=== PATIENT | male | born 1965 | race Caucasian/White ===

== ENCOUNTER 2023-05-06 07:42 | Outpatient (OUT) | payer OTHER, SELFPAY ==
[2023-05-06 09:09] LABS: Estimated Average Glucose 134 mg/dL; Glycohemoglobin A1C 6.3 % (4.5-6.2)
[2023-05-06 09:41] LABS: Chol HDL Ratio 4.1; Cholesterol 162 mg/dL (<=200); HDL Cholesterol 40 mg/dL (40-60); Triglycerides 172 mg/dL (<=150); VLDL CHOLESTEROL 34.4 mg/dL
[2023-05-06 10:04] LABS: Prostate Specific Antigen Scrn 1.66 ng/mL (<=4.00)
[2023-05-07 08:10] LABS: HCV Ab Non Reactive (Non Reactive); HIV Ab/p24 Ag Screen Non Reactive (Non Reactive)
== END 2023-05-06 07:43 | disposition home or self-care (01) ==
LOC: LAB 07:44
PROVIDERS: PCP Nurse Practitioner Primary Care; Visit Provider Nurse Practitioner Primary Care
DX: Z11.59 Encounter for screening for other viral diseases (principal); Z13.6 Encounter for screening for cardiovascular disorders; Z11.4 Encounter for screening for human immunodeficiency virus [HIV]; Z12.5 Encounter for screening for malignant neoplasm of prostate
CPT/HCPCS: 36415; 80061; 83036; 86803; 87389; G0103

== ENCOUNTER 2023-06-22 09:23 | Emergency (ER) | payer OTHER, SELFPAY ==
[2023-06-22 09:29] VITALS: BP 163/107; PULSE 76; RESP 18; TEMP 36.6; O2SAT 98
--- NOTE | 2023-06-22 10:01 | US_ITS ---
[facility] [id number] Patient Name: JUAN FRANCISCO CARMEN MRN: [id number] date: 1965 Sex: M Assigned Patient Location: ED.MAIN Current Patient Location: Accession/Order Number: [id number] Exam Date: 06/22/2023 10:28 Report Date: 06/22/2023 11:51 At the request of: DANIEL REZA Procedure: US venous doppler LE LT LEFT LOWER EXTREMITY VENOUS ULTRASOUND: 06/22/2023 10:28 AM EST Clinical Data: left calf pain, post TKR Comparison: No previous Grayscale and Doppler evaluation. No evidence of DVT US/US venous doppler LE LT IMPRESSION: 1. No evidence of DVT but follow-up studies if indicated. Electronically authenticated by: KATYA GLEASON Date: 06/22/2023 11:51
--- NOTE | 2023-06-22 10:02 | ED.GENADUL1 ---
HPI - General Adult General Chief complaint: Extremity Injury, Lower Stated complaint: BLOOD CLOT L LEG Time Seen by Provider: 06/22/23 09:33 Source: patient Mode of arrival: walk-in Limitations: no limitations History of Present Illness HPI narrative: Patient who underwent left knee surgery on late April now presents with pain and swelling to the left calf that began yesterday. Pain radiates into the left thigh and left hip but he has no pain with palpation or movement of those areas. No prior history of DVT and he does not take testosterone. No recent injury to the left LE. No chest pain or shortness of breath. He took baby aspirin this morning - nothing else for pain. Related Data Home Medications Medication Instructions Recorded Confirmed allopurinol 100 mg tablet 150 mg PO DAILY 06/22/23 06/22/23 amlodipine 5 mg tablet 5 mg PO DAILY 06/22/23 06/22/23 celecoxib 200 mg capsule 200 mg PO DAILY 06/22/23 06/22/23 lisinopril 20 mg tablet 20 mg PO DAILY 06/22/23 06/22/23 omega 2-djh-rlv-fish oil 300 1 cap PO DAILY 06/22/23 06/22/23 mg-1,000 mg capsule (Fish Oil) pravastatin 40 mg tablet 40 mg PO DAILY 06/22/23 06/22/23 sildenafil 25 mg tablet 25 mg PO PRN PRN sexual activity 06/22/23 06/22/23 tamsulosin 0.4 mg capsule 0.4 mg PO DAILY 06/22/23 06/22/23 Allergies Allergy/AdvReac Type Severity Reaction Status Date / Time No Known Drug Allergies Allergy Verified 06/22/23 09:32 [facility] Social History Smoking status: Never smoker Exam Narrative Exam Narrative: Nurses notes and vital signs reviewed and patient is not hypoxic. afebrile General: Well-appearing and in no apparent distress. Skin: Warm, dry, no pallor noted. Eye: Pupils are equal, round and EOMI. No scleral icterus. Cardiovascular: Normal peripheral perfusion. Respiratory: No accessory muscle use or respiratory distress. Musculoskeletal: Left LE with normal ROM. No left hip or thigh tenderness to palpation or pain with ROM. Left knee incision without dehiscence, erythema, warmth or sign of infection. No left popliteal tenderness. Left calf tenderness on palpation. No left lower extremity edema/swelling. Howard's negative. Neurological: A&O x4. No cranial nerve dysfunction observed. No truncal ataxia. Moves all extremities. Sensation intact. Psychiatric: Cooperative and interactive. Normal mood and affect. Constitutional Vital Signs, click to edit/add: Last Vital Signs Temp 97.9 F 06/22/23 09:29 Pulse 72 06/22/23 11:09 Resp 16 06/22/23 11:09 BP 137/76 06/22/23 11:09 Pulse Ox 98 06/22/23 11:09 O2 Del Method Room Air 06/22/23 09:29 Course Vital Signs Vital signs: Vital Signs Temperature 97.9 F 06/22/23 09:29 Pulse Rate 76 06/22/23 09:29 Respiratory Rate 18 06/22/23 09:29 Blood Pressure 163/107 H 06/22/23 09:29 Pulse Oximetry 98 06/22/23 09:29 Oxygen Delivery Method Room Air 06/22/23 09:29 Temperature 97.9 F 06/22/23 09:29 Pulse Rate 72 06/22/23 11:09 Respiratory Rate 16 06/22/23 11:09 Blood Pressure 137/76 06/22/23 11:09 Pulse Oximetry 98 06/22/23 11:09 Oxygen Delivery Method Room Air 06/22/23 09:29 Medical Decision Making MDM Narrative Medical decision making narrative: CBC and BMP testing obtained. Ultrasound left lower extremity to rule out deep vein thrombosis was also obtained. US left LE was negative for DVT. Blood testing essentially unremarkable - no electrolyte abnormality or elevated WBC Patient informed of negative results and given reassurance. He was discharged home with recommendations to take meds as prescribed and OTC med for pain. Lab Data Lab results reviewed: Yes I reviewed the patient's lab results Labs: Lab Results 06/22/23 Range/Units 10:10 WBC 6.1 (4.0-11.0) 10^3/uL RBC 4.83 (4.70-6.10) 10^6/uL Hgb 13.9 L (14.0-18.0) g/dL Hct 42.2 (42.0-54.0) % MCV 87.4 (80.0-94.0) fL MCH 28.8 (25.9-34.0) pg MCHC 32.9 (29.9-35.2) g/dL RDW 12.9 (11.0-15.0) % Plt Count 244 (150-450) 10^3/uL MPV 9.4 L (9.5-13.5) fL Neut % (Auto) 63.5 (43.0-75.0) % Lymph % (Auto) 23.1 (20.5-60.0) % [place] % (Auto) 8.5 (1.7-12.0) % Eos % (Auto) 4.2 (0.9-7.0) % Baso % (Auto) 0.5 (0.2-2.0) % Neut # (Auto) 3.9 (1.4-6.5) 10^3/uL Lymph # (Auto) 1.4 (1.2-3.8) 10^3/uL [place] # (Auto) 0.5 (0.3-0.8) 10^3/uL Eos # (Auto) 0.3 (0.0-0.7) 10^3/uL Baso # (Auto) 0.0 (0.0-0.1) 10^3/uL Abs Immat Gran (auto) 0.01 (0.00-0.03) 10^3/uL Imm/Tot Granulo (auto) 0.2 (0.0-0.5) % Sodium 137 (136-145) mmol/L Potassium 4.1 (3.5-5.1) mmol/L Chloride 102 (98-107) mmol/L Carbon Dioxide 26.0 (21.0-32.0) mmol/L Anion Gap 13.1 BUN 23.0 H (7.0-18.0) mg/dL Creatinine 0.92 (0.70-1.30) mg/dL Est GFR ( Amer) >60 (>=60) Est GFR (Non-Af Amer) >60 (>=60) BUN/Creatinine Ratio 25.0 Glucose 127 H (74-106) mg/dL Calcium 9.3 (8.5-10.1) mg/dL Discharge Plan Discharge Chief Complaint: Extremity Injury, Lower Clinical Impression: Acute pain of left lower extremity Patient Disposition: Home, Self-Care Time of Disposition Decision: 11:17 Prescriptions / Home Meds: No Action allopurinol 100 mg tablet 150 mg PO DAILY amlodipine 5 mg tablet 5 mg PO DAILY celecoxib 200 mg capsule 200 mg PO DAILY lisinopril 20 mg tablet 20 mg PO DAILY omega 0-mhm-xhc-fish oil [Fish Oil] 300-1,000 mg capsule 1 cap PO DAILY pravastatin 40 mg tablet 40 mg PO DAILY sildenafil 25 mg tablet 25 mg PO PRN PRN (Reason: sexual activity) tamsulosin 0.4 mg capsule 0.4 mg PO DAILY Instructions: Leg Pain (ED) Stand Alone Forms: Portal Instructions Referrals: ARNULFO DIAZ APRN [Primary Care Provider] - 1 week
[2023-06-22 10:17] LABS: Basophils Percent Auto 0.5 % (0.2-2.0); Eosinophils Absolute Auto 0.3 10^3/uL (0.0-0.7); Eosinophils Percent Auto 4.2 % (0.9-7.0); Hematocrit 42.2 % (42.0-54.0); Hemoglobin 13.9 g/dL (14.0-18.0); Immature Granulocytes Abs Auto 0.01 10^3/uL (0.00-0.03); Immature Granulocytes Pct Auto 0.2 % (0.0-0.5); Lymphocytes Absolute Auto 1.4 10^3/uL (1.2-3.8); Lymphocytes Percent Auto 23.1 % (20.5-60.0); Mean Corpuscular HGB Conc 32.9 g/dL (29.9-35.2); Mean Corpuscular Hemoglobin 28.8 pg (25.9-34.0); Mean Corpuscular Volume 87.4 fL (80.0-94.0); Mean Platelet Volume 9.4 fL (9.5-13.5); Monocytes Absolute Auto 0.5 10^3/uL (0.3-0.8); Monocytes Percent Auto 8.5 % (1.7-12.0); Neutrophils Absolute Auto 3.9 10^3/uL (1.4-6.5); Neutrophils Percent Auto 63.5 % (43.0-75.0); Platelet Count 244 10^3/uL (150-450); Red Blood Count 4.83 10^6/uL (4.70-6.10); Red Cell Distribution Width 12.9 % (11.0-15.0); White Blood Count 6.1 10^3/uL (4.0-11.0)
[2023-06-22 10:33] LABS: Anion Gap 13.1; Calcium 9.3 mg/dL (8.5-10.1); Chloride 102 mmol/L (98-107); Estimated GFR (African America >60 (>=60); Estimated GFR (Non-African Ame >60 (>=60); Glucose 127 mg/dL (74-106); Potassium 4.1 mmol/L (3.5-5.1); Sodium 137 mmol/L (136-145)
[2023-06-22 11:09] VITALS: BP 137/76; PULSE 72; RESP 16; O2SAT 98
== END 2023-06-22 11:38 | disposition home or self-care (01) ==
PROVIDERS: Emergency Provider Emergency Medicine; PCP Nurse Practitioner Primary Care
DX: M79.605 Pain in left leg (principal); Z79.899 Other long term (current) drug therapy
CPT/HCPCS: 36415; 80048; 85025; 93971; 99285

== ENCOUNTER 2023-11-22 07:37 | Outpatient (OUT) | payer OTHER, SELFPAY ==
--- OUTSIDE RECORDS SUMMARY | 2023-11-22 07:42 | XMS_ITS | CCD ---
Author Organization [facility] Care Team Providers Care [employer] Designer Name Role Phone DO Elmo Vela Attending Provider HOUSE, DR SYED Admitting Unavailable HOUSE, DR SYED Attending Unavailable HOUSE, DR SYED Consulting Unavailable HOUSE, DR SYED Primary Care Unavailable WIECEAllyson, DR KIARA Block Admitting Unavailable WIECEK, DR KIARA Block Attending Unavailable WIECEK, DR KIARA Block Admitting Unavailable WIECEK, DR KIARA Block Attending Unavailable OBED, DR ELMO Fisher Admitting Unavailable LAFFAPooja, DR ELMO Fisher Attending Unavailable OBED, DR ELMO Fisher Consulting Unavailable LAFFAPooja, DR ELMO Fisher Admitting Unavailable LAFFAY, DR ELMO Fisher Attending Unavailable LAFFAY, DR ELMO Fisher Consulting Unavailable Laffay, Elmo Attending Unavailable Lafrodney, Elmo Admitting Unavailable NO FAMILY, PHYSICIAN Primary Care Unavailable MARCI CURTIS Attending Unavailable MARCI CURTIS Referring Unavailable MARCI CURTIS Attending Unavailable Problems Problem Classification Problem Date Documented Da te Episodic/Chronic Abdominal hernia (1 source) Umbilical hernia without obstruction or gangrene; Translations: [Umbilical hernia without obstruction or gangrene] Onset: 03-30-2022 Episodic Genitourinary symptoms and ill-defined conditions (5 sources) Nocturia; Translations: [Dysuria] Onset: 01-17-2022 Episodic Unclassified (1 source) CONTACT W/AND (SUSP) EXPOS COVID-19; Translations: [CONTACT W/AND (SUSP) EXPOS COVID-19] Onset: 04-01-2022 Results Test Name Value Interpretation Reference Range Facil ity Neal 03-30-2022 L Specimen: [id number] Received: 03/30/22 Status: TISHA Kimble Num: [id number] Spec Type: Surgical Subm Dr: Elmo Vela DO Tissues: A Hernia Sac (HERNIA SAC) Procedures: HE Stain, Gross/Micro L2 Age/ Patient Sex Location Account Attending Physician Juan Francisco Phillips/Umair NM [id number] Elmo Vela DO SPEC NUM: [id number] RECD: 03/30/22 STATUS: TISHA KENDAL NUM: [id number] CINDY: 03/30/22- SUBM DR: Elmo Vela DO ENTERED: 03/30/[address]: Marquis Villalobos [facility] SPEC TYPE: Surgical DEPT: S ORDERED: HE Stain, Gross/Micro L2 ORDERED: HE Stain, Gross/Micro L2 Pathological Diagnosis Hernia sac, resection: Clinical Information Umbilical hernia Gross Description Received in formalin labeled with the patient's name, number and hernia sac is a 5.0 x 3.8 x 1.8 cm aggregate of yellow, lobular, focally hyperemic fat with a yellow, lobular cut surface.. Animal Physiologist sections are submitted in one cassette labeled A1. Microscopic Description One glass slide with H E stained material has been examined. The microscopic findings support the above pathologic diagnosis. CPT Codes 86503 Specimen: [id number] Received: 03/30/22 Status: TISHA Kimble Num: [id number] Spec Type: Surgical Subm Dr: Elmo Vela DO Tissues: A Hernia Sac (HERNIA SAC) Procedures: HE Stain, Gross/Micro L2 Patient: Juan Francisco Phillips M [id number] (Continued) Signed (signature on file) Tamika Rodriguez MD 04/02/22 1054 Normal [facility] Covid-19 PCR (CVDTB)on SARS-CoV-2 (COVID-19) RNA GEORGIE+probe Ql (Unsp spec) Not detected Normal NOT DETECTED [facility] Comment on above: Result Comment: This test is not yet approved or cleared by the [place] FDA. When there are no FDA-approved or cleared tests available, and other criteria are met, FDA can make tests available under an emergency access mechanism called an Emergency Use Authorization (EUA). The EUA for this test is supported by the [place] [employer] of Health and Human Service's (HHS's) declaration that circumstances exist to justify the emergency use of in vitro diagnostics for the detection and/or diagnosis of the virus that causes COVID-19. This EUA will remain in effect (meaning this test can be used) for the duration of the COVID-19 declaration justifying emergency of IVDs, unless it is terminated or revoked by FDA (after which the test may no longer be used). When diagnostic testing is negative, the possibility of a false negative should be considered in the context of a patient's recent exposures and the presence of clinical signs and symptoms consistent with SARS-CoV-2. Performed By: #### C VDTB #### [facility] [address] [place] [address] Dr. Renny Patel CBC AUTO DIFFon 01-17-2022 BASO # 0.0 103/ul Normal 0.0-0.1 [facility] Comment on above: Performed By: #### C BC #### [facility] [address] [place] [address] Dr. Renny Patel Basophils/100 WBC (Bld) 0.2 % Normal 0.2-2.0 [facility] Comment on above: Performed By: #### C BC #### [facility] [address] [place] [address] Dr. Renny Patel EO # 0.0 103/ul Normal 0.0-0.7 [facility] Comment on above: Performed By: #### C BC #### [facility] [address] [place] [address] Dr. Renny Patel Eosinophils/100 WBC (Bld) 0.2 % Critically low 0.9-7.0 [facility] Comment on above: Performed By: #### C BC #### [facility] [address] [place] [address] Dr. Renny Patel Erythrocyte distribution width (RBC) [Ratio] 12.8 % Normal 11.0-15.0 [facility] Comment on above: Performed By: #### C BC #### [facility] [address] [place] [address] Dr. Renny Patel Hematocrit (Bld) [Volume fraction] 45.1 % Normal 42.0-54.0 [facility] Comment on above: Performed By: #### C BC #### [facility] [address] [place] [address] Dr. Renny Patel Hemoglobin (Bld) [Mass/Vol] 14.7 g/dL Normal 14.0-18.0 [facility] Comment on above: Performed By: #### C BC #### [facility] [address] [place] [address] Dr. Renny Patel IG # 0.03 10e3/ul Normal 0.00-0.03 [facility] Comment on above: Performed By: #### C BC #### [facility] [address] [place] [address] Dr. Renny Patel IG % 0.4 % Normal 0.0-0.5 [facility] Comment on above: Performed By: #### C BC #### [facility] [address] [place] [address] Dr. Renny Patel LYMPH # 1.9 103/ul Normal 1.2-3.8 [facility] Comment on above: Performed By: #### C BC #### [facility] [address] [place] [address] Dr. Renny Patel Lymphocytes/100 WBC (Bld) 22.8 % Normal 20.5-60.0 [facility] Comment on above: Performed By: #### C BC #### [facility] [address] [place] [address] Dr. Renny Patel MANUAL DIFF REQ NO Normal [facility] Comment on above: Performed By: #### C BC #### [facility] [address] [place] [address] Dr. Renny Patel MCH (RBC) [Entitic mass] 29.1 pg Normal 25.9-34.0 [facility] Comment on above: Performed By: #### C BC #### [facility] [address] [place] [address] Dr. Renny Patel MCHC (RBC) [Mass/Vol] 32.6 g/dL Normal 29.9-35.2 [facility] Comment on above: Performed By: #### C BC #### [facility] [address] [place] [address] Dr. Renny Patel MCV (RBC) [Entitic vol] 89.1 fL Normal 80.0-94.0 [facility] Comment on above: Performed By: #### C BC #### [facility] [address] [place] [address] Dr. Renny Patel MONO # 0.7 103/ul Normal 0.3-0.8 [facility] Comment on above: Performed By: #### C BC #### [facility] [address] [place] [address] Dr. Renny Patel Monocytes/100 WBC (Bld) 8.4 % Normal 1.7-12.0 [facility] Comment on above: Performed By: #### C BC #### [facility] [address] [place] [address] Dr. Renny Patel NEUT # 5.8 103/ul Normal 1.4-6.5 [facility] Comment on above: Performed By: #### C BC #### [facility] [address] [place] [address] Dr. Renny Patel Neutrophils/100 WBC (Bld) 68.0 % Normal 43.0-75.0 [facility] Comment on above: Performed By: #### C BC #### [facility] [address] [place] [address] Dr. Renny Patel Platelet mean volume (Bld) [Entitic vol] 9.4 fL Critically low 9.5-13.5 [facility] Comment on above: Performed By: #### C BC #### [facility] [address] [place] [address] Dr. Renny Patel PLT 247 103/ul Normal 150-450 [facility] Comment on above: Performed By: #### C BC #### [facility] [address] [place] [address] Dr. Renny Patel RBC 5.06 106/ul Normal 4.70-6.10 [facility] Comment on above: Performed By: #### C BC #### [facility] [address] [place] [address] Dr. Renny Patel WBC 8.5 103/ul Normal 4.0-11.0 [facility] Comment on above: Performed By: #### C BC #### [facility] [address] [place] [address] Dr. Renny Patel PROF 14(COMP METB)on 022 Albumin [Mass/Vol] 3.8 g/dL Normal 3.4-5.0 [facility] Comment on above: Performed By: #### U KEVIN, CMP #### [facility] [address] [place] [address] Dr. Renny Patel Albumin/Globulin [Mass ratio] 1.0 {ratio} Normal [facility] Comment on above: Performed By: #### U KEVIN, CMP #### [facility] [address] [place] [address] Dr. Renny Patel ALP [Catalytic activity/Vol] 54 U/L Normal 46-116 [facility] Comment on above: Performed By: #### U KEVIN, CMP #### [facility] [address] [place] [address] Dr. Renny Patel ALT [Catalytic activity/Vol] 60 U/L Normal 16-63 [facility] Comment on above: Performed By: #### U KEVIN, CMP #### [facility] [address] [place] [address] Dr. Renny Patel Anion gap [Moles/Vol] 8.7 mmol/L Normal [facility] Comment on above: Performed By: #### U KEVIN, CMP #### [facility] [address] [place] [address] Dr. Renny Patel AST [Catalytic activity/Vol] 22 U/L Normal 15-37 [facility] Comment on above: Performed By: #### U KEVIN, CMP #### [facility] [address] [place] [address] Dr. Renny Patel Bilirubin [Mass/Vol] 0.8 mg/dL Normal 0.2-1.0 [facility] Comment on above: Performed By: #### U KEVIN, CMP #### [facility] [address] [place] [address] Dr. Renny Patel Calcium [Mass/Vol] 9.4 mg/dL Normal 8.5-10.1 [facility] Comment on above: Performed By: #### U KEVIN, CMP #### [facility] [address] [place] [address] Dr. Renny Patel Chloride [Moles/Vol] 104 mmol/L Normal 98-107 [facility] Comment on above: Performed By: #### U KEVIN, CMP #### [facility] [address] [place] [address] Dr. Renny Patel CO2 [Moles/Vol] 27.6 mmol/L Normal 21.0-32.0 [facility] Comment on above: Performed By: #### U KEVIN, CMP #### [facility] [address] [place] [address] Dr. Renny Patel Creatinine [Mass/Vol] 0.99 mg/dL Normal 0.70-1.30 [facility] Comment on above: Performed By: #### U KEVIN, CMP #### [facility] [address] [place] [address] Dr. Renny Patel EGFR-AF NAMIBIAN >60 Normal >=60 [facility] Comment on above: Performed By: #### U KEVIN, CMP #### [facility] [address] [address] [address] Renny Patel EGFR-NON AF NAMIBIAN >60 Normal >=60 [facility] Comment on above: Performed By: #### U KEVIN, CMP #### [facility] [address] [address] [address] Renny Patel Globulin (S) [Mass/Vol] 3.9 g/dL Normal [facility] Comment on above: Performed By: #### U KEVIN, CMP #### [facility] [address] [address] [address] Renny Patel Glucose [Mass/Vol] 123 mg/dL Critically high 74-106 [facility] Comment on above: Performed By: #### U KEVIN, CMP #### [facility] [address] [address] [address] Renny Patel Potassium [Moles/Vol] 4.3 mmol/L Normal 3.5-5.1 [facility] Comment on above: Performed By: #### U KEVIN, CMP #### [facility] [address] [address] [address] Renny Patel Protein [Mass/Vol] 7.7 g/dL Normal 6.4-8.2 [facility] Comment on above: Performed By: #### U KEVIN, CMP #### [facility] [address] [address] [address] Renny Patel Sodium [Moles/Vol] 136 mmol/L Normal 136-145 [facility] Comment on above: Performed By: #### U KEVIN, CMP #### [facility] [address] [address] [address] Renny Patel Urea nitrogen [Mass/Vol] 15.0 mg/dL Normal 7.0-18.0 [facility] Comment on above: Performed By: #### U KEVIN, CMP #### [facility] [address] [address] [address] Renny Patel Urea nitrogen/Creatinine [Mass ratio] 15.2 mg/mg Normal [facility] Comment on above: Performed By: #### U KEVIN, CMP #### [facility] [address] [address] [address] Renny Patel URIC ACID SERUMon 01-17-2022 Urate [Mass/Vol] 4.9 mg/dL Normal 3.5-7.2 [facility] Comment on above: Performed By: #### U KEVIN, CMP #### [facility] [address] [address] [address] Renny Patel Encounters Encounter Date Encounter Type Care Provider Facility Start: 07-29-2023 End: 07-29-2023 ambulatory MARCI CURTIS Not Available Start: 07-01-2023 End: 07-02-2023 ambulatory MARCI CURTIS Not Available Start: 04-01-2022 Encounter for preprocedural laboratory examination DR ELMO VELA [facility] Start: 03-30-2022 End: 03-30-2022 ambulatory Elmo Vela Facility:[facility] Start: 03-30-2022 End: 03-30-2022 Departed Referred DO Elmo Vela Work Phone: [facility] Start: 03-28-2022 End: 03-29-[address] ELMO VELA Facility:[facility] Start: 03-28-2022 End: 03-29-2022 Encounter for preprocedural laboratory examination DR ELMO VELA Facility:[facility] Start: 03-02-[address] KIARA JARQUIN Fac ility:[facility] Start: 02-28-2022 Encounter for preprocedural cardiovascular examination DR ELMO VELA [facility] Start: 02-27-2022 End: 02-28-2022 Encounter for preprocedural cardiovascular examination DR ELMO VELA Facility:[facility] Start: 02-27-2022 End: 02-28-[address] ELMO VELA Facility:[facility] Start: 01-17-2022 End: 01-18-[address] KUNAL MICHELLE Facility:[facility] Procedures Date Procedure Procedure Detail Performing Clinician Start: 01-17-[address] SORAYA MICHELLE Comment on above: Performed By: #### P SAD #### [facility] [address] [address] [address] Renny Patel Payers Date Payer Category Payer Self-pay 1965 Unknown [id number] 2.16.84 [id number] 1965 Unknown [id number] 2.16.84 [id number] 1965 Unknown [id number] 2.16.84 [id number] 1965 Unknown [id number] 2.16.84 [id number] 1965 Unknown [id number] 2.16.84 [id number] 1965 Unknown [id number] [id number] .[id number] 1965 Unknown [id number] 2.16.840 .[id number] 1965 Unknown [id number] 2.16.840 .[id number] 1959 Unknown [id number] Unknown [id number] 2.16.8 [id number] Social History Date Type Detail Facility Tobacco smoking stat [facility] Unknown if ever smoked [facility] Work Phone: Start: 1965 Sex Assigned At Male [facility] Evaluation note Note Date & Type Note Facility Evaluation note No assessment information availa ble [facility] Work Phone: Summary Purpose Family History No Family History Records FoundNo Family History Records FoundNo Family History Records Found Advance Directives No Advanced Directives Records FoundNo Advanced Directives Records FoundNo Advanced Directives Records Found Additional Source Comments Care Teams (unrecognized sec tion and content) Team Status: Inactive Member Role Status Dates Elmo Vela DO Attending Provider Active Goals (unrecognized section and content) Goals may be documented in a n alternate section (unrecognized sect ion and content) No Status Records FoundNo Status Records FoundNo Status Records Found INFORMATION SOURCE (unrecogn ized section and content) DATE CREATED AUTHOR 04/01/2022 [facility] DATE CREATED AUTHOR AUTHOR'S ORGANIZ ATION 04/23/2022 [facility] DATE CREATED AUTHOR AUTHOR'S ORGANIZ ATION 07/29/2023 [facility] FOR RECORDS PERTAINING TO PATIENTS WHO ARE OR HAVE BEEN ENROLLED IN A CHEMICAL DEPENDENCY/SUBSTANCEABUSE PROGRAM, SOME INFORMATION MAY BE OMITTED. This clinical summary was aggregated from multiple sources. Caution should be exercised in using it in the provision of clinical care. This summary normalizes information from multiple sources, and as a consequence, information in this document may materially change the coding, format and clinical context of patient data. In addition, data may be omitted in some cases. CLINICAL DECISIONS SHOULD BE BASED ON THE PRIMARY CLINICAL RECORDS. [facility] [facility] provides no warranty or guarantee of the accuracy or completeness of information in this document.
[2023-11-22 08:13] LABS: Estimated Average Glucose 128 mg/dL; Glycohemoglobin A1C 6.1 % (4.5-6.2)
[2023-11-22 08:20] LABS: Chol HDL Ratio 3.5; Cholesterol 163 mg/dL (<=200); HDL Cholesterol 47 mg/dL (40-60); LDL Cholesterol Calculated 100.2 mg/dL; Triglycerides 79 mg/dL (<=150); VLDL CHOLESTEROL 15.8 mg/dL
[2023-11-22 09:25] LABS: Prostate Specific Antigen Scrn 2.22 ng/mL (<=4.00)
[2023-11-24 12:14] LABS: Insulin 26.3 uIU/mL (2.6-24.9)
== END 2023-11-22 07:38 | disposition home or self-care (01) ==
LOC: LAB 07:39
PROVIDERS: PCP Nurse Practitioner Family; Visit Provider Nurse Practitioner Family
DX: E78.5 Hyperlipidemia, unspecified (principal); R73.09 Other abnormal glucose; Z12.5 Encounter for screening for malignant neoplasm of prostate
CPT/HCPCS: 36415; 80061; 83036; 83525; G0103

== ENCOUNTER 2024-02-04 15:51 | Outpatient (OUT) | payer OTHER, SELFPAY ==
--- OUTSIDE RECORDS SUMMARY | 2024-02-04 15:59 | XMS_ITS | CCD ---
Author Organization 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 Automatic Name Role Phone DO Elmo Clay Attending Provider MIGUEL ANGEL, DR SYED Admitting Unavailable HOUSE, DR SYED Attending Unavailable HOUSE, DR SYED Consulting Unavailable HOUSE, DR SYED Primary Care Unavailable WIECEAllyson, DR KIARA Block Admitting Unavailable WIECEK, DR KIARA Block Attending Unavailable WIECEK, DR KIARA Block Admitting Unavailable WIECEK, DR KIARA Block Attending Unavailable OBED, DR ELMO Fisher Admitting Unavailable OBED, DR ELMO Fisher Attending Unavailable OBED, DR ELMO Fisher Consulting Unavailable OBED, DR ELMO Fisher Admitting Unavailable BERTRAMFAPooja, DR ELMO Fisher Attending Unavailable OBED, DR ELMO Fisher Consulting Unavailable Obed, Elmo Attending Unavailable Obed, Elmo Admitting Unavailable NO FAMILY, PHYSICIAN Primary Care Unavailable BERTA HERRERA Primary Care Physician Maura Payne Attending Unavailable ESTELA CHRIS Attending Unavailable BERTA HERRERA Referring Unavailable MARCI CURTIS Attending Unavailable MARCI CURTIS Attending Unavailable MARCI CURTIS Referring Unavailable MARCI CURTIS Referring Unavailable MICHAEL YIN T Attending Unavailable MARCI CURTIS Referring Unavailable BRISSA BARRERA Attending Unavailable MARCI CURTIS Referring Unavailable MARCI CURTIS Referring Unavailable MARCI CURTIS Attending Unavailable BLAZE GARCIA Attending Unavailable MARCI CURTIS Referring Unavailable MICHAEL YIN T Attending Unavailable MARCI CURTIS Referring Unavailable MARCI CURTIS Attending Unavailable WILLY YINEMY T Attending Unavailable MARCI CURTIS Referring Unavailable WILLY YINEMY T Attending Unavailable MARCI CURTIS Referring Unavailable Allergies Allergy Classification Reported Allergen(s) Allergy Type Date of Onset Reaction(s) Facility (1 source) No Known Medication Allergies; Translations: [No Known Medication Allergies] Propensity to adverse reactions (disorder) [facility] Repository Medications Completed/Discontinued Medications Medication Drug Class(es) Dates Sig (Normalized) Sig (Original) allopurinol 100 mg oral tablet (2 sources) Xanthine Oxidase Inhibitor Start: 12-02-2023 allopurinol 100 mg Tab 135 EA, 0 Refill(s), take 1 AND 1/2 tablets by mouth once daily, Refills(s) 0 Start Date: 12/02/23 Status: Ordered amLODIPine 5 mg oral tablet (2 sources) Dihydropyridine Calcium Channel Jazmyne Start: 12-02-2023 amLODIPine 5 mg Tab 90 EA, 0 Refill(s), take 1 tablet by mouth once daily, Refills(s) 0 Start Date: 12/02/23 Status: Ordered lisinopril 20 mg oral tablet (2 sources) Angiotensin Converting Enzyme Inhibitor Start: 12-02-2023 lisinopril 20 mg Tab 90 EA, 0 Refill(s), take 1 tablet by mouth once daily, Refills(s) 0 Start Date: 12/02/23 Status: Ordered pravastatin sodium 40 mg oral tablet (2 sources) HMG-CoA Reductase Inhibitor Start: 12-02-2023 pravastatin 40 mg Tab 90 EA, 0 Refill(s), take 1 tablet by mouth once daily, Refills(s) 0 Start Date: 12/02/23 Status: Ordered predniSONE 50 mg oral tablet (2 sources) Start: 12-02-2023 predniSONE 50 mg Tab 5 EA, 0 Refill(s), take 1 tablet by mouth once daily for 5 days, Refills(s) 0 Start Date: 12/02/23 Status: Ordered tamsulosin hydrochloride 0.4 mg oral capsule (2 sources) alpha-Adrenergic Jazmyne Start: 12-02-2023 tamsulosin 0.4 mg Cap 90 EA, 0 Refill(s), take 1 capsule by mouth once daily, Refills(s) 0 Start Date: 12/02/23 Status: Ordered Problems Problem Classification Problem Date Documented Date Episodic/Chronic Abdominal hernia (1 source) Umbilical hernia without obstruction or gangrene; Translations: [Umbilical hernia without obstruction or gangrene] Onset: 03-30-2022 Episodic Disorders of lipid metabolism (2 sources) Hyperlipidemia 12-02-2023 Chronic Essential hypertension (2 sources) Hypertensive disorder 12-02-2023 Chronic Genitourinary symptoms and ill-defined conditions (5 sources) Nocturia; Translations: [Dysuria] Onset: 01-17-2022 Episodic Gout and other crystal arthropathies (2 sources) Gout 12-02-2023 Chronic Hyperplasia of prostate (3 sources) Benign prostatic hypertrophy with outflow obstruction; Translations: [Benign prostatic hyperplasia with lower urinary tract symptoms] Onset: 12-03-2023 Chronic Other male genital disorders (3 sources) Male erectile dysfunction, unspecified; Translations: [Erectile dysfunction] Onset: 12-03-2023 Chronic Other screening for suspected conditions (not mental disorders or infectious disease) (3 sources) Raised prostate specific antigen; Translations: [Elevated prostate specific antigen [PSA]] Onset: 12-03-2023 Episodic Unclassified (1 source) CONTACT W/AND (SUSP) EXPOS COVID-19; Translations: [CONTACT W/AND (SUSP) EXPOS COVID-19] Onset: 04-01-2022 Unclassified (2 sources) Measurement finding 12-03-2023 Results Test Name Value Interpretation Reference Range Facil ity Physician Referralon 024 Physician Referral [id number]# 1.00TIFF Normal [facility] Screenson 12-04-2023 Screens [id number]#1.00TIFF Normal [facility] Urology Office/Clinic Noteon 12-03-2023 Urology Office/Clinic Note Chief Complaint New patient, referred for urinary frequency HPI Staff Evaluation requested by Berta Herrera due to frequency. Pt is a new pt. Never before seen in our office. (Verified on DA) *Per referral papers, pt taking Tamsulosin with no sx improvement. Has been taking for two years and has not been seeing improvement Hx of DM. Last A1C 11/22/23- 6.1 PSA 05/06/23- 1.66 11/22/23- 2.22 BMP *BUN 23.0 Crea 0.92 eGFR >60 With tamsulosin Dysuria: denies Incomplete bladder emptying: denies Hematuria: denies Frequency: denies for during the day Urgency: x 2 years Nocturia: 3 x a night Stream: steady Leaking: denies Post void dripping: denies Wearing pads/ Depends: denies Urge incontinence: denies Stress incontinence: denies Incontinence without Sensory Awareness: denies Abdominal pain: denies Flank pain: denies Sexual complaints: _ PVR: 14 ml History of Present Illness staff HPI reviewed and agree. Review of Systems PHQ Score Initial Depression Screen Score: 0 SCORE no fever, chills, malaise, myalgia. no rash/lesions. no chest pain, palpitations, or SOB. no abdominal pain, nausea, vomiting. no unilateral calf swelling, redness, pain Physical Exam Vitals & Measurements HR: 87(Peripheral) BP: 147/88 General: nontoxic, NAD Mouth: moist mucosa Lungs: normal respiratory effort Cardio: regular rate, good distal perfusion Abdomen: nondistended, no suprapubic distention or tenderness, no CVA tenderness Neurologic: Grossly normal Skin: No rashes or suspicious lesions Assessment/Plan Juan Francisco is a 58 yo male referred by Berta Herrera NP for frequency. Hx of DM. Last A1C 11/22/23 - 6.1 06/22/23 BMP - BUN 23.0 Crea 0.92 eGFR >60 1. BPH with urinary obstruction (N40.1: Benign prostatic hyperplasia with lower urinary tract symptoms) PVR (cc): 12/03/23 - 14 UA today neg. IPSS 17, QoL 4 Has been taking Flomax for a few years. Minimal to no improvement. Experiencing urgency and nocturia 3x as his most bothersome sx. Denies gross hematuria, UTIs, or kidney stones. We discussed current dose and optional changes: increasing tamsulosin to BID adding an additional agent such as finasteride/dutaster gloria I discussed with the patient the different surgical treatment options for bladder outlet obstruction including TURP, Rezum, and Urolift. Cysto is required to eval FORRESTER. TRUS is also recommended to eval prostate size. -UroLift and REZUM literature provided -Will schedule cysto/TRUS for sizing with Dr. Payne. The risks and benefits for cystoscopy have been discussed. The risks include bleeding, infection, and irritation of the bladder and urinary channel, among others. The patient, after being informed of procedural details and after questions have been answered, wishes to proceed. Full informed consent has been obtained. Will order Local anesthesia. Ordered: [id number] Measure Post Void residual urine and/or bladder capacity by US- non-imaging Urnls Dip Stick Auto w/o Microscopy POC 79308 2. Increased prostate specific antigen (PSA) velocity, (R97.20: Elevated prostate specific antigen [PSA])Elevated PSA PSA: 05/06/23 - 1.66 11/22/23 - 2.22 No known family hx of prostate cancer. LUIS nl. PSA still within normal range for his age, but we discussed that the rise from Apr to November is slightly concerning. Could be due to a variety of reasons. I discussed the pros and cons of PSA with the patient today. The various causes of PSA elevation were outlined, including prostate cancer, prostate enlargement, infection of the prostate, inflammation without infection, as well as prostate manipulation. The options regarding this PSA elevation, including prostate biopsy versus close monitoring, versus obtaining an MRI of the prostate/Select MDX were discussed. -We will hold off on any additional work up for now and discuss further jamison GÓMEZ at the time of cysto/TRUS. Ordered: [id number] Measure Post Void residual urine and/or bladder capacity by US- non-imaging 3. ED (erectile dysfunction) (N52.9: Male erectile dysfunction, unspecified) ALKA 21. not bothersome enough to warrant tx at this time. Follow-up With When Contact Information Elmer GÓMEZ, Maura Torres, URL, URO Additional Instructions: Sched cysto/TRUS for sizing Patient Education Cystoscopy Benign Prostatic Hyperplasia Documentation recorded by the mahnaz Vela accurately reflects the services(s) I performed and decisions made by me. Authenticated by Estela Chris PA-C on 12/03/2023 16:02:40. Linda Vela, personally scribed for Mimi Chris PA-C on 12/03/2023 15:53:25. . Problem List/Past Medical History Ongoing BPH with urinary obstruction Elevated PSA Gout Hyperlipidemia Hypertension Historical No qualifying data Procedure/Surgical History Total knee arthroplasty (2022), Total knee arthroplasty (2021), Hernia, Hip replacement, Knee. Medicat (more content not included)... Normal [facility] Comment on above: Result Comment: Elec tronically Signed By: ARIES PAESTELA Wilcox.br\Date and Time Signed: 12/03/23 16:04 EDT\.br\Electronically Co-Signed By: Linda Vela.br\Date and Time Co-Signed: 12/03/23 15:55 EDT Neal 03-30-2022 L Specimen: [id number] Received: 03/30/22 Status: TISHA Shyanne Num: [id number] Spec Type: Surgical Subm Dr: Elmo Clay DO Tissues: A Hernia Sac (HERNIA SAC) Procedures: HE Stain, Gross/Micro L2 Age/ Patient Sex Location Account Attending Physician Juan Francisco Phillips/Umair ADLER [id number] Elmo Clay DO SPEC NUM: [id number] RECD: 03/30/22 STATUS: TISHA KIMBLE NUM: [id number] CINDY: 03/30/22- DR: Elmo Clay DO ENTERED: 03/30/22 [facility] DR: Mar[facility] SPEC TYPE: Surgical DEPT: S ORDERED: HE Stain, Gross/Micro L2 ORDERED: HE Stain, Gross/Micro L2 Pathological Diagnosis Hernia sac, resection: Clinical Information Umbilical hernia Gross Description Received in formalin labeled with the patient's name, number and hernia sac is a 5.0 x 3.8 x 1.8 cm aggregate of yellow, lobular, focally hyperemic fat with a yellow, lobular cut surface.. Soaker Helper sections are submitted in one cassette labeled A1. Microscopic Description One glass slide with H E stained material has been examined. The microscopic findings support the above pathologic diagnosis. CPT Codes 50371 Specimen: [id number] Received: 03/30/22 Status: TISHA Kimble Num: [id number] Spec Type: Surgical Subm Dr: Elmo Clay DO Tissues: A Hernia Sac (HERNIA SAC) Procedures: HE Stain, Gross/Micro L2 Patient: Juan Francisco Phillips [id number] (Continued) Signed (signature on file) Tamika Rodriguez MD 04/02/22 1054 [facility] Covid-19 PCR ([facility])on SARS-CoV-2 (COVID-19) RNA GEORGIE+probe Ql (Unsp spec) Not detected Normal NOT DETECTED [facility] Comment on above: Result Comment: This test is not yet approved or cleared by the [place] FDA. When there are no FDA-approved or cleared tests available, and other criteria are met, FDA can make tests available under an emergency access mechanism called an Emergency Use Authorization (EUA). The EUA for this test is supported by the Insurance And Financial Services Agent of Health and Human Service's (HHS's) declaration [...] consistent with SARS-CoV-2. Performed By: #### [facility] #### [address], [place] [address] Dr. Renny Patel CBC AUTO DIFFon 01-17-2022 BASO # 0.0 103/ul Normal 0.0-0.1 [facility] Comment on above: Performed By: #### C BC #### [facility] [address] [place] [address] Dr. Renny Patel Basophils/100 WBC (Bld) 0.2 % Normal 0.2-2.0 [facility] Comment on above: Performed By: #### C BC #### [facility] [address] [place] [address] Dr. Renny Patel EO # 0.0 103/ul Normal 0.0-0.7 [facility] Comment on above: Performed By: #### C BC #### [facility] [address] [place] [address] Dr. Renny Patel Eosinophils/100 WBC (Bld) 0.2 % Critically low 0.9-7.0 [facility] Comment on above: Performed By: #### C BC #### [facility] [address] [place] [address] Dr. Renny Patel Erythrocyte distribution width (RBC) [Ratio] 12.8 % Normal 11.0-15.0 [facility] Comment on above: Performed By: #### C BC #### [facility] [address] [place] [address] Dr. Renny Patel Hematocrit (Bld) [Volume fraction] 45.1 % Normal 42.0-54.0 [facility] Comment on above: Performed By: #### C BC #### [facility] [address] [place] [address] Dr. Renny Patel Hemoglobin (Bld) [Mass/Vol] 14.7 g/dL Normal 14.0-18.0 [facility] Comment on above: Performed By: #### C BC #### [facility] [address] [place] [address] Dr. Renny Patel IG # 0.03 10e3/ul Normal 0.00-0.03 [facility] Comment on above: Performed By: #### C BC #### [facility] [address] [place] [address] Dr. Renny Patel IG % 0.4 % Normal 0.0-0.5 [facility] Comment on above: Performed By: #### C BC #### [facility] [address] [place] [address] Dr. Renny Patel LYMPH # 1.9 103/ul Normal 1.2-3.8 [facility] Comment on above: Performed By: #### C BC #### [facility] [address] [place] [address] Dr. Renny Patel Lymphocytes/100 WBC (Bld) 22.8 % Normal 20.5-60.0 [facility] Comment on above: Performed By: #### C BC #### [facility] [address] [place] [address] Dr. Renny Patel MANUAL DIFF REQ NO Normal [facility] Comment on above: Performed By: #### C BC #### [facility] [address] [place] [address] Dr. Renny Patel MCH (RBC) [Entitic mass] 29.1 pg Normal 25.9-34.0 [facility] Comment on above: Performed By: #### C BC #### [facility] [address] [place] [address] Dr. Renny Patel MCHC (RBC) [Mass/Vol] 32.6 g/dL Normal 29.9-35.2 [facility] Comment on above: Performed By: #### C BC #### [facility] [address] [place] [address] Dr. Renny Patel MCV (RBC) [Entitic vol] 89.1 fL Normal 80.0-94.0 [facility] Comment on above: Performed By: #### C BC #### [facility] [address] [place] [address] Dr. Renny Patel MONO # 0.7 103/ul Normal 0.3-0.8 [facility] Comment on above: Performed By: #### C BC #### [facility] [address] [place] [address] Dr. Renny Patel Monocytes/100 WBC (Bld) 8.4 % Normal 1.7-12.0 [facility] Comment on above: Performed By: #### C BC #### [facility] [address] [place] [address] Dr. Renny Patel NEUT # 5.8 103/ul Normal 1.4-6.5 [facility] Comment on above: Performed By: #### C BC #### [facility] [address] [place] [address] Dr. Renny Patel Neutrophils/100 WBC (Bld) 68.0 % Normal 43.0-75.0 [facility] Comment on above: Performed By: #### C BC #### [facility] [address] [place] [address] Dr. Renny Patel Platelet mean volume (Bld) [Entitic vol] 9.4 fL Critically low 9.5-13.5 [facility] Comment on above: Performed By: #### C BC #### [facility] [address] [place] [address] Dr. Renny Patel PLT 247 103/ul Normal 150-450 [facility] Comment on above: Performed By: #### C BC #### [facility] [address] [place] [address] Dr. Renny Patel RBC 5.06 106/ul Normal 4.70-6.10 [facility] Comment on above: Performed By: #### C BC #### [facility] [address] [place] [address] Dr. Renny Patel WBC 8.5 103/ul Normal 4.0-11.0 [facility] Comment on above: Performed By: #### C BC #### [facility] [address] [place] [address] Dr. Renny Patel PROF 14(COMP METB)on 022 Albumin [Mass/Vol] 3.8 g/dL Normal 3.4-5.0 [facility] Comment on above: Performed By: #### U KEVIN, CMP #### [facility] [address] [place], [place] [id number] Dr. Renny Patel Albumin/Globulin [Mass ratio] 1.0 {ratio} Normal [facility] Comment on above: Performed By: #### U KEVIN, CMP #### [facility] [address] [place] [address] Dr. Renny Patel ALP [Catalytic activity/Vol] 54 U/L Normal 46-116 [facility] Comment on above: Performed By: #### U KEVIN, CMP #### [facility] [address] [address] [address] Renny Patel ALT [Catalytic activity/Vol] 60 U/L Normal 16-63 [facility] Comment on above: Performed By: #### U KEVIN, CMP #### [facility] [address] [place] [address] Dr. Renny Patel Anion gap [Moles/Vol] 8.7 mmol/L Normal [facility] Comment on above: Performed By: #### U KEVIN, CMP #### [facility] [address] [place] [address] Dr. Renny Patel AST [Catalytic activity/Vol] 22 U/L Normal 15-37 [facility] Comment on above: Performed By: #### U KEVIN, CMP #### [facility] [address] [place] [address] Dr. Renny Patel Bilirubin [Mass/Vol] 0.8 mg/dL Normal 0.2-1.0 [facility] Comment on above: Performed By: #### U KEVIN, CMP #### [facility] [address] [place] [address] Dr. Renny Patel Calcium [Mass/Vol] 9.4 mg/dL Normal 8.5-10.1 [facility] Comment on above: Performed By: #### U KEVIN, CMP #### [facility] [address] [place] [address] Dr. Renny Patel Chloride [Moles/Vol] 104 mmol/L Normal 98-107 [facility] Comment on above: Performed By: #### U KEVIN, CMP #### [facility] [address] [place] [address] Dr. Renny Patel CO2 [Moles/Vol] 27.6 mmol/L Normal 21.0-32.0 [facility] Comment on above: Performed By: #### U KEVIN, CMP #### [facility] [address] [address] [address] Renny Patel Creatinine [Mass/Vol] 0.99 mg/dL Normal 0.70-1.30 [facility] Comment on above: Performed By: #### U KEVIN, CMP #### [facility] [address] [address] [address] Renny Patel EGFR-AF SAUDI ARABIAN >60 Normal >=60 [facility] Comment on above: Performed By: #### U KEVIN, CMP #### [facility] [address] [place] [address] Dr. Renny Patel EGFR-NON AF SAUDI ARABIAN >60 Normal >=60 [facility] Comment on above: Performed By: #### U KEVIN, CMP #### [facility] [address] [place] [address] Dr. Renny Patel Globulin (S) [Mass/Vol] 3.9 g/dL Normal [facility] Comment on above: Performed By: #### U KEVIN, CMP #### [facility] [address] [place] [address] Dr. Renny Patel Glucose [Mass/Vol] 123 mg/dL Critically high 74-106 [facility] Comment on above: Performed By: #### U KEVIN, CMP #### [facility] [address] [place] [address] Dr. Renny Patel Potassium [Moles/Vol] 4.3 mmol/L Normal 3.5-5.1 [facility] Comment on above: Performed By: #### U KEVIN, CMP #### [facility] [address] [place] [address] Dr. Renny Patel Protein [Mass/Vol] 7.7 g/dL Normal 6.4-8.[address] [facility] Comment on above: Performed By: #### U KEVIN, CMP #### [facility] [address] [place] [address] Dr. Renny Patel Sodium [Moles/Vol] 136 mmol/L Normal 136-145 [facility] Comment on above: Performed By: #### U KEVIN, CMP #### [facility] [address] [address] [address] Renny Patel Urea nitrogen [Mass/Vol] 15.0 mg/dL Normal 7.0-18.0 [facility] Comment on above: Performed By: #### U KEVIN, CMP #### [facility] [address] [address] [address] Renny Patel Urea nitrogen/Creatinine [Mass ratio] 15.2 mg/mg Normal [facility] Comment on above: Performed By: #### U KEVIN, CMP #### [facility] [address] [address] [address] Renny Patel URIC ACID SERUMon 01-17-2022 Urate [Mass/Vol] 4.9 mg/dL Normal 3.5-7.2 [facility] Comment on above: Performed By: #### U KEVIN, CMP #### [facility] [address] [address] [address] Renny Patel Vital Signs Date Time Vital Sign Value Performing Clinician Faci lity 12-03-2023 15:28-0400 Diastolic blood pressure 88 mm[Hg] ESTELA CHRIS [facility] 12-03-2023 15:28-0400 Mean blood pressure 108 mm[Hg] ESTELA CHRIS [facility] 12-03-2023 15:28-0400 Systolic blood pressure 147 mm[Hg] ESTELA CHRIS [facility] 12-03-2023 15:16-0400 Blood Pressure Location ESTELA CHRIS [facility] 12-03-2023 15:16-0400 Diastolic blood pressure 83 mm[Hg] ESTELA CHRIS [facility] 12-03-2023 15:16-0400 Heart rate 87 /min ESTELA CHRIS [facility] 12-03-2023 15:16-0400 Systolic blood pressure 147 mm[Hg] ESTELA CHRIS [facility] Encounters Encounter Date Encounter Type Care Provider Facility Start: 01-20-2024 End: 01-20-2024 ambulatory MICHAEL YIN Not Available Start: 01-15-2024 End: 01-15-2024 ambulatory MICHAEL YIN Not Available Start: 01-08-2024 End: 01-08-2024 ambulatory MARCI CURTIS Not Available Start: 01-07-2024 End: 01-07-2024 ambulatory MICHAEL YIN Not Available Start: 12-24-2023 End: 12-24-2023 ambulatory BLAZE GARCIA Not Available Start: 12-18-2023 End: 12-18-2023 ambulatory BRISSA HOLLY Not Available Start: 12-11-2023 End: 12-12-2023 ambulatory Maura Payne Facility:[facility] Start: 12-11-2023 End: 12-11-2023 Off-Site Maura Marvine [facility] Debbie Start: 12-10-2023 End: 12-10-2023 ambulatory MICHAEL YIN Not Available Start: 12-04-2023 End: 12-04-2023 ambulatory MARCI CURTIS Not Available Start: 12-03-2023 End: 12-04-2023 ambulatory ESTELA CHRIS Facility:[facility] Start: 12-03-2023 End: 12-03-2023 Patient encounter procedure ESTELA CHRIS [facility] Start: 11-25-2023 ambulatory Maura Lue Facility:[facility] Start: 07-29-2023 End: 07-29-2023 ambulatory MARCI Isaac CURTIS Not Available Start: 07-01-2023 End: 07-01-2023 ambulatory MARCI Isaac CURTIS Not Available Start: 04-01-2022 Encounter for preprocedural laboratory examination DR ELMO CLAY [facility] Start: 03-30-2022 End: 03-30-2022 ambulatory Elmo Clay Facility:[facility] Start: 03-30-2022 End: 03-30-2022 Departed Referred DO Elmo Clay Work Phone: [facility] Start: 03-28-2022 End: 03-29-[address] ELMO CLAY Facility:[facility] Start: 03-28-2022 End: 03-29-2022 Encounter for preprocedural laboratory examination DR ELMO CLAY Facility:[facility] Start: 03-02-[address] KIARA JARQUIN Fac ility:[facility] Start: 02-28-2022 Encounter for preprocedural cardiovascular examination DR ELMO CLAY [facility] Start: 02-27-2022 End: 02-28-2022 Encounter for preprocedural cardiovascular examination DR ELMO CLAY Facility:[facility] Start: 02-27-2022 End: 02-28-[address] ELMO CLAY Facility:[facility] Start: 01-17-2022 End: 01-18-[address] KUNAL MICHELLE Facility:[facility] Procedures Date Procedure Procedure Detail Performing Clinician Start: 07-22-2022 Total knee replacement ESTELA CHRIS Start: 01-17-[address] SORAYA MICHELLE Comment on above: Performed By: #### P SAD #### [facility] [address] [place] [address] Dr. Renny Patel Start: 07-22-2021 Total knee replacement ESTELA ARIES Herniated structure (morphologic abnormality) ESTELA ARIES Insertion of hip prosthesis ESTELA CHRIS Knee region structur e (body structure) ESTELA CHRIS Immunizations Immunization Date Immunization Notes Care Provider Shraddha ibethcal 05-09-2023 influenza virus vaccine, unspecified formulation ESTELA CHRIS [facility] 05-09-2023 tetanus toxoid, redu daphne diphtheria toxoid, and acellular pertussis vaccine, adsorbed ESTELA CHRIS [facility] 10-25-2020 SARS-CoV-2 (COVID-19 ) mRNA BNT-162b2 vax ESTELA CHRIS [facility] 10-04-2020 SARS-CoV-2 (COVID-19 ) mRNA BNT-162b2 vax ESTELA CHRIS [facility] 06-03-2018 influenza virus vaccine, unspecified formulation ESTELA CHRIS [facility] Payers Date Payer Category Payer Unknown [id number] 2022 Self-pay 1965 Unknown [id number] 2.16.84 [id number] 1965 Unknown [id number] 2.16.84 0.1.767833.3.579.2.593 1965 Unknown [id number] 2.16.84 0.1.478203.3.579.2.593 1965 Unknown [id number] 2.16.84 0.1.356299.3.579.2.593 1963 Unknown [id number] 2.16.84 0.1.241962.3.579.2.593 1963 Unknown [id number] 2.16.8 40.1.616512.3.579.2.727 1963 Unknown [id number] 2.16.84 0.1.837237.3.579.2.1259 1963 Unknown [id number] 2.16.84 0.1.557836.3.579.2.9 1963 Unknown [id number] 2.16.84 0.1.433407.3.579.2.9 1963 Unknown [id number] 2.16.84 0.1.885648.3.579.2.9 1963 Unknown [id number] 2.16.84 0.1.001032.3.579.2.1259 1963 Unknown [id number] 2.16.84 0.1.398372.3.579.2.9 1963 Unknown [id number] 2.16.84 0.1.169618.3.579.2.9 1963 Unknown [id number] 2.16.84 0.1.981193.3.579.2.9 1963 Unknown [id number] 2.16.84 0.1.471503.3.579.2.1259 1963 Unknown [id number] 2.16.84 0.1.989687.3.579.2.9 1963 Unknown [id number] 2.16.840 .1.464268.3.579.2.9 1963 Unknown [id number] 2.16.840 .1.956026.3.579.2.9 1963 Unknown [id number] 2.16.840 .1.996533.3.579.2.1259 1959 Unknown [id number] Unknown [id number] 2.16.8 40.1.242436.3.579.2.531 Social History Date Type Detail [facility] Work Phone: Start: 1965 Sex Assigned At Male [facility] Start: 12-03-2023 Tobacco smoking status Never s moked tobacco (finding) [facility] Tobacco smoking status Never [facility] Sex Assigned At Male [facility] Functional Status Date Assessment Result Facility 12-03-2023 Functional Status N/A [facility] Clinical Note 12-03-2023 Note Date & Type Note Facility 12-03-2023 Note Urology Cystoscopy Cystoscopy is a procedure that is used to help diagnose and sometimes treat conditions that affect the lower urinary tract. The lower urinary tract includes the bladder and the urethra. The urethra is the tube that drains urine from the bladder. Cystoscopy is done using a thin, tube-shaped instrument with a light and camera at the end (cystoscope). The cystoscope may be hard or flexible, depending on the goal of the procedure. The cystoscope is inserted through the urethra, into the bladder. Cystoscopy may be recommended if you have: ? Urinary tract infections that keep coming back. ? Blood in the urine (hematuria). ? An inability to control when you urinate (urinary incontinence) or an overactive bladder. ? Unusual cells found in a urine sample. ? A blockage in the urethra, such as a urinary stone. ? Painful urination. ? An abnormality in the bladder found during an intravenous pyelogram (IVP) or CT scan. Cystoscopy may also be done to remove a sample of tissue to be examined under a microscope (biopsy). Tell a health care provider about: ? Any allergies you have. ? All medicines you are taking, including vitamins, herbs, eye drops, creams, and mesr-xjl-rfmwupz medicines. ? Any problems you or family members have had with anesthetic medicines. ? Any blood disorders you have. ? Any surgeries you have had. ? Any medical conditions you have. ? Whether you are or may be . What are the risks? Generally, this is a safe procedure. However, problems may occur, including: ? Infection. ? Bleeding. ? Allergic reactions to medicines. ? Damage to other structures or organs. What happens before the procedure? Medicines Ask your health care provider about: ? Changing or stopping your regular medicines. This is especially important if you are taking diabetes medicines or blood thinners. ? Taking medicines such as aspirin and ibuprofen. These medicines can thin your blood. Do not take these medicines unless your health care provider tells you to take them. ? Taking lqrz-kke-swfdkth medicines, vitamins, herbs, and supplements. Tests You may have an exam or testing, such as: ? X-rays of the bladder, urethra, or kidneys. ? CT scan of the abdomen or pelvis. ? Urine tests to check for signs of infection. General instructions ? Follow instructions from your health care provider about eating or drinking restrictions. ? Ask your health care provider what steps will be taken to help prevent infection. These steps may include: ? Washing skin with a germ-killing soap. ? Taking antibiotic medicine. ? Plan to have a responsible adult take you home from the hospital or clinic. What happens during the procedure? ? You will be given one or more of the following: ? A medicine to help you relax (sedative). ? A medicine to numb the area (local anesthetic). ? The area around the opening of your urethra will be cleaned. ? The cystoscope will be passed through your urethra into your bladder. ? Germ-free (sterile) fluid will flow through the cystoscope to fill your bladder. The fluid will stretch your bladder so that your health care provider can clearly examine your bladder begum. ? Your doctor will look at the urethra and bladder. Your doctor may take a biopsy or remove stones. ? The cystoscope will be removed, and your bladder will be emptied. The procedure may vary among health care providers and hospitals. What can I expect after the procedure? After the procedure, it is common to have: ? Some soreness or pain in your abdomen and urethra. ? Urinary symptoms. These include: ? Mild pain or burning when you urinate. Pain should stop within a few minutes after you urinate. This may last for up to 1 week. ? A small amount of blood in your urine for several days. ? Feeling like you need to urinate but producing only a small amount of urine. Follow these instructions at home: Medicines ? Take ozjt-cjm-qksekxs and prescription medicines only as told by your health care provider. ? If you were prescribed an antibiotic medicine, take it as told by your health care provider. Do not stop taking the antibiotic even if you start to feel better. General instructions ? Return to your normal activities as told by your health care provider. Ask your health care provider what activities are safe for you. ? If you were given a sedative during the procedure, it can affect you for several hours. Do not drive or operate machinery until your health care provider says that it is safe. ? Watch for any blood in your urine. If the amount of blood in your urine increases, call your health care provider. ? Follow instructions from your health care provider about eating or drinking restrictions. ? If a tissue sample was removed for testing (biopsy) during your procedure, it is up to you to get your test results. Ask your health care provider, or the department th (more content not included)... [facility] Hospital Discharge instructions 12-03-2023 Note Date & Type Note Facility 12-03-2023 Hospital Discharge instructions Patient Education 12/03/2023 15:53:00 Cystoscopy Cystoscopy Cystoscopy is a procedure that is used to help diagnose and sometimes treat conditions that affect the lower urinary tract. The lower urinary tract includes the bladder and the urethra. The urethra is the tube that drains urine from the bladder. Cystoscopy is done using a thin, tube-shaped instrument with a light and camera at the end (cystoscope). The cystoscope may be hard or flexible, depending on the goal of the procedure. The cystoscope is inserted through the urethra, into the bladder. Cystoscopy may be recommended if you have: Urinary tract infections that keep coming back. Blood in the urine (hematuria). An inability to control when you urinate (urinary incontinence) or an overactive bladder. Unusual cells found in a urine sample. A blockage in the urethra, such as a urinary stone. Painful urination. An abnormality in the bladder found during an intravenous pyelogram (IVP) or CT scan. Cystoscopy may also be done to remove a sample of tissue to be examined under a microscope (biopsy). Tell a health care provider about: Any allergies you have. All medicines you are taking, including vitamins, herbs, eye drops, creams, and gbgv-bmi-hmhbycq medicines. Any problems you or family members have had with anesthetic medicines. Any blood disorders you have. Any surgeries you have had. Any medical conditions you have. Whether you are or may be . What are the risks? Generally, this is a safe procedure. However, problems may occur, including: Infection. Bleeding. Allergic reactions to medicines. Damage to other structures or organs. What happens before the procedure? Medicines Ask your health care provider about: Changing or stopping your regular medicines. This is especially important if you are taking diabetes medicines or blood thinners. Taking medicines such as aspirin and ibuprofen. These medicines can thin your blood. Do not take these medicines unless your health care provider tells you to take them. Taking lgns-qbf-sqgnuvd medicines, vitamins, herbs, and supplements. Tests You may have an exam or testing, such as: X-rays of the bladder, urethra, or kidneys. CT scan of the abdomen or pelvis. Urine tests to check for signs of infection. General instructions Follow instructions from your health care provider about eating or drinking restrictions. Ask your health care provider what steps will be taken to help prevent infection. These steps may include: ?Washing skin with a germ-killing soap. ?Taking antibiotic medicine. Plan to have a responsible adult take you home from the hospital or clinic. What happens during the procedure? You will be given one or more of the following: ?A medicine to help you relax (sedative). ?A medicine to numb the area (local anesthetic). The area around the opening of your urethra will be cleaned. The cystoscope will be passed through your urethra into your bladder. Germ-free (sterile) fluid will flow through the cystoscope to fill your bladder. The fluid will stretch your bladder so that your health care provider can clearly examine your bladder begum. Your doctor will look at the urethra and bladder. Your doctor may take a biopsy or remove stones. The cystoscope will be removed, and your bladder will be emptied. The procedure may vary among health care providers and hospitals. What can I expect after the procedure? After the procedure, it is common to have: Some soreness or pain in your abdomen and urethra. Urinary symptoms. These include: ?Mild pain or burning when you urinate. Pain should stop within a few minutes after you urinate. This may last for up to 1 week. ?A small amount of blood in your urine for several days. ?Feeling like you need to urinate but producing only a small amount of urine. Follow these instructions at home: Medicines Take jpgr-scn-lalgwqk and prescription medicines only as told by your health care provider. If you were prescribed an antibiotic medicine, take it as told by your health care provider. Do not stop taking the antibiotic even if you start to feel better. General instructions Return to your normal activities as told by your health care provider. Ask your health care provider what activities are safe for you. If you were given a sedative during the procedure, it can affect you for several hours. Do not drive or operate machinery until your health care provider says that it is safe. Watch for any blood in your urine. If the amount of blood in your urine increases, call your health care provider. Follow instructions from your health care provider about eating or drinking restrictions. If a tissue sample was removed for testing (biopsy) during your procedure, it is up to you to get your test results. Ask your health care provider, or the department that is doing the test, when your results will be ready. Drink enough fluid to keep your urine pale yellow. Keep all follow-up visits. This is important. Contact a health care provider if: You have pain that gets worse or does not get better with medicine, especially pain when you urinate. You have trouble urinating. You have more blood in your urine. Get help right away if: You have blood clots in your urine. You have abdominal pain. You have a fever or chills. You are unable to urinate. Summary Cystoscopy is a procedure that is used to help diagnose and sometimes treat conditions that affect the lower urinary tract. Cystoscopy is done using a thin, tube-shaped instrument with a light and camera at the end. After the procedure, it is common to have some soreness or pain in your abdomen and urethra. Watch for any blood in your urine. If the amount of blood in your urine increases, call your health care provider. If you were prescribed an antibiotic medicine, take it as told by your health care provider. Do not stop taking the antibiotic even if you start to feel better. This information is not intended to replace advice given to you by your health care provider. Make sure you discuss any questions you have with your health care provider. Document Revised: 03/21/2022 Document Reviewed: 02/17/2021 [employer] Patient Education 2022 [employer] 12/03/2023 15:48:35 Benign Prostatic Hyperplasia Benign Prostatic Hyperplasia Benign prostatic hyperplasia (BPH) is an enlarged prostate gland that is caused by the normal aging process. The prostate may get bigger as a man gets older. The condition is not caused by cancer. The prostate is a walnut-sized gland that is involved in the production of semen. It is located in front of the rectum and below the bladder. The bladder stores urine. The urethra carries stored urine out of the body. An enlarged prostate can press on the urethra. This can make it harder to pass urine. The buildup of urine in the bladder can cause infection. Back pressure and infection may progress to bladder damage and kidney (renal) failure. What are the causes? This condition is part of the normal aging process. However, not all men develop problems from this condition. If the prostate enlarges away from the urethra, urine flow will not be blocked. If it enlarges toward the urethra and compresses it, there will be problems passing urine. What increases the risk? This condition is more likely to develop in men older than 50 years. What are the signs or symptoms? Symptoms of this condition include: Getting up often during the night to urinate. Needing to urinate frequently during the day. Difficulty starting urine flow. Decrease in size and strength of your urine stream. Leaking (dribbling) after urinating. Inability to pass urine. This needs immediate treatment. Inability to completely empty your bladder. Pain when you pass urine. This is more common if there is also an infection. Urinary tract infection (UTI). How is this diagnosed? This condition is diagnosed based on your medical history, a physical exam, and your symptoms. Tests will also be done, such as: A post-void bladder scan. This measures any amount of urine that may remain in your bladder after you finish urinating. A digital rectal exam. In a rectal exam, your health care provider checks your prostate by putting a lubricated, gloved finger into your rectum to feel the back of your prostate gland. This exam detects the size of your gland and any abnormal lumps or growths. An exam of your urine (urinalysis). A prostate specific antigen (PSA) screening. This is a blood test used to screen for prostate cancer. An ultrasound. This test uses sound waves to electronically produce a picture of your prostate gland. Your health care provider may refer you to a specialist in kidney and prostate diseases (urologist). How is this treated? Once symptoms begin, your health care provider will monitor your condition (active surveillance or watchful waiting). Treatment for this condition will depend on the severity of your condition. Treatment may include: Observation and yearly exams. This may be the only treatment needed if your condition and symptoms are mild. Medicines to relieve your symptoms, including: ?Medicines to shrink the prostate. ?Medicines to relax the muscle of the prostate. Surgery in severe cases. Surgery may include: ?Prostatectomy. In this procedure, the prostate tissue is removed completely through an open incision or with a laparoscope or robotics. ?Transurethral resection of the prostate (TURP). In this procedure, a tool is inserted through the opening at the tip of the penis (urethra). It is used to cut away tissue of the inner core of the prostate. The pieces are removed through the same opening of the penis. This removes the blockage. ?Transurethral incision (TUIP). In this procedure, small cuts are made in the prostate. This lessens the prostate's pressure on the urethra. ?Transurethral microwave thermotherapy (TUMT). This procedure uses microwaves to create heat. The heat destroys and removes a small amount of prostate tissue. ?Transurethral needle ablation (TUNA). This procedure uses radio frequencies to destroy and remove a small amount of prostate tissue. ?Interstitial laser coagulation (ILC). This procedure uses a laser to destroy and remove a small amount of prostate tissue. ?Transurethral electrovaporization (TUVP). This procedure uses electrodes to destroy and remove a small amount of prostate tissue. ?Prostatic urethral lift. This procedure inserts an implant to push the lobes of the prostate away from the urethra. Follow these instructions at home: Take kbsj-aly-zxaimuj and prescription medicines only as told by your health care provider. Monitor your symptoms for any changes. Contact your health care provider with any changes. Avoid drinking large amounts of liquid before going to bed or out in public. Avoid or reduce how much caffeine or alcohol you drink. Give yourself time when you urinate. Keep all follow-up visits. This is important. Contact a health care provider if: You have unexplained back pain. Your symptoms do not get better with treatment. You develop side effects from the medicine you are taking. Your urine becomes very dark or has a bad smell. Your lower abdomen becomes distended and you have trouble passing urine. Get help right away if: You have a fever or chills. You suddenly cannot urinate. You feel light-headed or very dizzy, or you faint. There are large amounts of blood or clots in your urine. Your urinary problems become hard to manage. You develop moderate to severe low back or flank pain. The flank is the side of your body between the ribs and the hip. These symptoms may be an emergency. Get help right away. Call 911. Do not wait to see if the symptoms will go away. Do not drive yourself to the hospital. Summary Benign prostatic hyperplasia (BPH) is an enlarged prostate that is caused by the normal aging process. It is not caused by cancer. An enlarged prostate can press on the urethra. This can make it hard to pass urine. This condition is more likely to develop in men older than 50 years. Get help right away if you suddenly cannot urinate. This information is not intended to replace advice given to you by your health care provider. Make sure you discuss any questions you have with your health care provider. Document Revised: 01/24/2022 Document Reviewed: 01/24/2022 [employer] Patient Education 2022 [employer]. Follow Up Care 11/25/2023 13:52:08 With:Elmer GÓMEZ, DEBRA Rondon, URO Address: When: Unknown [facility] Evaluation + Plan note Note Date & Type Note Facility Evaluation + Plan note No data available for this section [facility] Evaluation note Note Date & Type Note Facility Evaluation note No assessment information availa [facility] Work Phone: Hospital Discharge instructions Note Date & Type Note Facility Hospital Discharge instructions No data available for this section [facility] Progress note Note Date & Type Note Facility Progress note No data available for this section [facility] Summary Purpose Family History No Family History Records FoundNo Family History Records Found No data available for this section No data available for this section No Family History Records FoundNo Family History Records Found Advance Directives No Advanced Directives Records FoundNo Advanced Directives Records FoundNo Advanced Directives Records FoundNo Advanced Directives Records Found Additional Source Comments Care Teams (unrecognized sec tion and content) Team Status: Inactive Member Role Status Dates Elmo Clay DO Attending Provider Active Goals (unrecognized section and content) Goals may be documented in a n alternate section No data available for this section No data available for this section (unrecognized sect ion and content) No Status Records FoundNo Status Records FoundNo Status Records FoundNo Status Records Found INFORMATION SOURCE (unrecogn ized section and content) DATE CREATED AUTHOR 04/01/2022 [facility] DATE CREATED AUTHOR AUTHOR'S ORGANIZ ATION 04/23/2022 [facility] DATE CREATED AUTHOR AUTHOR'S ORGANIZ ATION 12/14/2023 [facility] DATE CREATED AUTHOR AUTHOR'S ORGANIZ ATION 01/20/2024 [facility] EPIC FOR RECORDS PERTAINING TO PATIENTS WHO ARE [...] BE BASED ON THE PRIMARY CLINICAL RECORDS. [employer] [facility]. provides no warranty or guarantee of the accuracy or completeness of information in this document.
[2024-02-04 16:01] LABS: Basophils Percent Auto 0.5 % (0.2-2.0); Eosinophils Absolute Auto 0.1 10^3/uL (0.0-0.7); Eosinophils Percent Auto 1.4 % (0.9-7.0); Hematocrit 45.7 % (42.0-54.0); Hemoglobin 14.9 g/dL (14.0-18.0); Immature Granulocytes Abs Auto 0.01 10^3/uL (0.00-0.03); Immature Granulocytes Pct Auto 0.2 % (0.0-0.5); Lymphocytes Absolute Auto 1.7 10^3/uL (1.2-3.8); Lymphocytes Percent Auto 27.5 % (20.5-60.0); Mean Corpuscular HGB Conc 32.6 g/dL (29.9-35.2); Mean Corpuscular Hemoglobin 28.4 pg (25.9-34.0); Mean Platelet Volume 9.5 fL (9.5-13.5); Monocytes Absolute Auto 0.6 10^3/uL (0.3-0.8); Monocytes Percent Auto 8.8 % (1.7-12.0); Neutrophils Absolute Auto 3.9 10^3/uL (1.4-6.5); Neutrophils Percent Auto 61.6 % (43.0-75.0); Platelet Count 244 10^3/uL (150-450); Red Blood Count 5.25 10^6/uL (4.70-6.10); Red Cell Distribution Width 12.6 % (11.0-15.0); White Blood Count 6.3 10^3/uL (4.0-11.0)
[2024-02-04 16:18] LABS: Erythrocyte Sedimentation Rate 40 mm/hr (<=20)
[2024-02-04 16:47] LABS: C Reactive Protein <0.50 mg/dL (<=0.50)
== END 2024-02-04 15:52 | disposition home or self-care (01) ==
LOC: LAB 15:52
PROVIDERS: PCP Nurse Practitioner Family; Visit Provider Personal Emergency Response Attendant
DX: M25.562 Pain in left knee (principal)
CPT/HCPCS: 36415; 85025; 85652; 86140

== ENCOUNTER 2024-03-05 07:37 | Outpatient (OUT) | payer OTHER, SELFPAY ==
--- OUTSIDE RECORDS SUMMARY | 2024-03-05 07:40 | XMS_ITS | CCD ---
Author Organization [facility] Care Team Providers Care Public Relations Account Supervisor Name Role Phone DO Elmo Clay Attending Provider MIGUEL ANGEL, DR SYED Admitting Unavailable HOUSE, DR SYED Attending Unavailable HOUSE, DR SYED Consulting Unavailable HOUSE, DR SYED Primary Care Unavailable WIECEK, DR KIARA Block Admitting Unavailable [...] Care Unavailable BERTA HERRERA Primary Care Physician [phone] MARCI CURTIS Attending Unavailable MARCI CURTIS Attending Unavailable MARCI CURTIS Referring Unavailable MARCI CURTIS Referring Unavailable MICHAEL YIN Attending Unavailable MARCI CURTIS Referring Unavailable BRISSA BARRERA Attending Unavailable MARCI CURTIS Referring Unavailable BLAZE GARCIA Attending Unavailable MARCI CURTIS Referring Unavailable BLACKSTON, MICHAEL T Attending Unavailable CURTISMARCI Referring Unavailable CURTISMARCI Attending Unavailable BLACKSTERRELL, MICHAEL T Attending Unavailable MARCI CURTIS Referring Unavailable BLACKSTON, MICHAEL T Attending Unavailable MARCI CURTIS Referring Unavailable BLACKSTON, MICHAEL T Attending Unavailable MARCI CURTIS Referring Unavailable MARCI CURTIS Attending Unavailable MARCI CURTIS Referring Unavailable MARCI CURTIS Referring Unavailable MARCI CURTIS Attending Unavailable ESTELA CHRIS Attending Unavailable BERTA HERRERA Referring Unavailable Maura Payne. Admitting Unavailable Maura Payne Attending Unavailable Lue, Maura M. Referring Unavailable Maura Payne Attending Unavailable Maura Payne Referring Unavailable Maura Payne Attending Unavailable Maura Payne Attending Unavailable Allergies Allergy Classification Reported Allergen(s) Allergy Type Date of Onset Reaction(s) Facility (1 source) No Known Medication Allergies; Translations: [No Known Medication Allergies] Propensity to adverse reactions (disorder) [facility] Repository Medications Current Medications Medication Drug Class(es) Dates Sig (Normalized) Sig (Original) acetaminophen 325 mg / HYDROcodone bitartrate 5 mg oral tablet (1 source) Opioid Agonist Start: 01-17-2024 Samaria 325 mg-5 mg oral tablet 1 tab(s), Oral, q6hr, 10 tab(s), Refill(s) 0, Take 1 tablet 1 hour prior to the procedure. Then take as needed for pain., [facility] #[id number] Start Date: 01/17/24 Status: Ordered diazePAM 10 mg oral tablet (1 source) Benzodiazepine Start: 01-17-2024 Valium 10 mg Tab 10 mg = 1 tab(s), Oral, Once, PRN for anxiety, Take 1 hour prior to the procedure., # 1 tab(s), Refills(s) 0, Pharmacy: [facility][id number] Start Date: 01/17/24 Status: Ordered oxybutynin chloride 5 mg oral tablet (1 source) Cholinergic Muscarinic Antagonist Start: 02-10-2024 take 1 tablet by mouth three times daily as needed oxybutynin 5 mg Tab 5 mg = 1 tab(s), Oral, TID, PRN Urinary discomfort, # 60 tab(s), Refills(s) 0, Pharmacy: [facility] #[id number], 190, cm, 02/10/24 9:23:00 EDT, Height/Length Dosing, 119, kg, 02/10/24 9:23:00 EDT, Weight Dosing Start Date: 02/10/24 Status: Ordered Completed/Discontinued Medications Medication Drug Class(es) Dates Sig (Normalized) Sig (Original) allopurinol 100 mg oral tablet (3 sources) Xanthine Oxidase Inhibitor Start: 12-02-2023 allopurinol 100 mg Tab 135 EA, 0 Refill(s), take 1 AND 1/2 tablets by mouth once daily, Refills(s) 0 Start Date: 12/02/23 Status: Ordered amLODIPine 5 mg oral tablet (3 sources) Dihydropyridine Calcium Channel Jazmyne Start: 12-02-2023 amLODIPine 5 mg Tab 90 EA, 0 Refill(s), take 1 tablet by mouth once daily, Refills(s) 0 Start Date: 12/02/23 Status: Ordered lisinopril 20 mg oral tablet (3 sources) Angiotensin Converting Enzyme Inhibitor Start: 12-02-2023 lisinopril 20 mg Tab 90 EA, 0 Refill(s), take 1 tablet by mouth once daily, Refills(s) 0 Start Date: 12/02/23 Status: Ordered pravastatin sodium 40 mg oral tablet (3 sources) HMG-CoA Reductase Inhibitor Start: 12-02-2023 pravastatin 40 mg Tab 90 EA, 0 Refill(s), take 1 tablet by mouth once daily, Refills(s) 0 Start Date: 12/02/23 Status: Ordered predniSONE 50 mg oral tablet (3 sources) Start: 12-02-2023 predniSONE 50 mg Tab 5 EA, 0 Refill(s), take 1 tablet by mouth once daily for 5 days, Refills(s) 0 Start Date: 12/02/23 Status: Ordered tamsulosin hydrochloride 0.4 mg oral capsule (3 sources) alpha-Adrenergic Jazmyne Start: 12-02-2023 tamsulosin 0.4 mg Cap 90 EA, 0 Refill(s), take 1 capsule by mouth once daily, Refills(s) 0 Start Date: 12/02/23 Status: Ordered Problems Problem Classification Problem Date Documented Date Episodic/Chronic Abdominal hernia (1 source) Umbilical hernia without obstruction or gangrene; Translations: [Umbilical hernia without obstruction or gangrene] Onset: 03-30-2022 Episodic Disorders of lipid metabolism (3 sources) Hyperlipidemia 12-02-2023 Chronic Essential hypertension (3 sources) Hypertensive disorder 12-02-2023 Chronic Genitourinary symptoms and ill-defined conditions (5 sources) Nocturia; Translations: [Dysuria] Onset: 01-17-2022 Episodic Gout and other crystal arthropathies (3 sources) Gout 12-02-2023 Chronic Hyperplasia of prostate (5 sources) Benign prostatic hypertrophy with outflow obstruction; Translations: [Benign prostatic hyperplasia with lower urinary tract symptoms] Onset: 12-03-2023 Chronic Other diseases of kidney and ureters (1 source) Urinary tract obstruction; Translations: [Other obstructive and reflux uropathy] Onset: 02-10-2024 Episodic Other male genital disorders (4 sources) Male erectile dysfunction, unspecified; Translations: [Erectile dysfunction] Onset: 12-03-2023 Chronic Other screening for suspected conditions (not mental disorders or infectious disease) (4 sources) Raised prostate specific antigen; Translations: [Elevated prostate specific antigen [PSA]] Onset: 12-03-2023 Episodic Unclassified (1 source) CONTACT W/AND (SUSP) EXPOS COVID-19; Translations: [CONTACT W/AND (SUSP) EXPOS COVID-19] Onset: 04-01-2022 Unclassified (3 sources) Measurement finding 12-03-2023 Results Test Name Value Interpretation Reference Range Facility Inpatient Patient Summaryon 02-10-2024 Inpatient Patient Summary Inpatient Patient Summary [place] [id number] Clinical Summary Person Information Name: JUAN FRANCISCO PHILLIPS Age: 58 Years : 1965 Sex: Male PCP: BERTA HERRERA CNP Marital Status: Unknown Race: White Ethnicity: Non- or Language: [place] African Visit Id: Visit Reason: BPH WITH URINARY OBSTRUCTION Speciality: Acuity: Enc Type: Outpatient Med Service: Surgery Arrival: 02/10/2024 08:51:44 Discharge: Dispo Type: Address: [address] [place] [address] [phone] Provider Notes: Diagnosis: BPH with urinary obstruction; Other obstructive and reflux uropathy Problems Active ED (erectile dysfunction) Increased prostate specific antigen (PSA) velocity BPH with urinary obstruction Hyperlipidemia Hypertension Gout Smoking Status: Functional Status: Sensory Deficits: History of Falls: Mobility Assistance Prior to Admission: ADLs: Current Level of Assistance for Self-Care/Mobility: Cognitive Status: Allergies No Known Medication Allergies Laboratory or Other Results This Visit (last charted value for your 02/10/2024 visit) No Laboratory or Other Results This Visit Measurements: Height: 190 cm Weight: 119 kg Blood Pressure: Not Valued / Not Valued BMI: 32.96 kg/m2 Procedures No Procedures Documented Immunizations No Immunizations Documented This Visit Final Med List: acetaminophen-hydroco done (Samaria 325 mg-5 mg oral tablet) 1 Tablets By Mouth every 6 hours. Take 1 tablet 1 hour prior to the procedure. Then take as needed for pain.. Refills: 0. allopurinol (allopurinol 100 mg Tab) 135 EA, 0 Refill(s), take 1 AND 1/2 tablets by mouth once daily. amlodipine (amLODIPine 5 mg Tab) 90 EA, 0 Refill(s), take 1 tablet by mouth once daily. diazepam (Valium 10 mg Tab) 1 Tablets By Mouth Once as needed for anxiety. Take 1 hour prior to the procedure.. Refills: 0. lisinopril (lisinopril 20 mg Tab) 90 EA, 0 Refill(s), take 1 tablet by mouth once daily. oxybutynin (oxybutynin 5 mg Tab) 1 Tablets By Mouth 3 times a day as needed Urinary discomfort. Refills: 0. pravastatin (pravastatin 40 mg Tab) 90 EA, 0 Refill(s), take 1 tablet by mouth once daily. predniSONE (predniSONE 50 mg Tab) 5 EA, 0 Refill(s), take 1 tablet by mouth once daily for 5 days. tamsulosin (tamsulosin 0.4 mg Cap) 90 EA, 0 Refill(s), take 1 capsule by mouth once daily. Care Team Members: Attending Physician: Maura Payne MD Consulting Physician: Referring Physician: Maura Payne MD Follow up: With: Address: When: Maura Payne [address], [place] [id number] [phone] Business (1) [facility] [address] [place] [address], [facility] [address] [place] [id number] [phone] Business (1) Comments: Office to schedule follow up in 1 month with PVR Patient Education Information: Lue - Urolift Post-Op Instructions (CUSTOM) [facility] Main OR Intraoperative Recor don 02-10-2024 Main OR Intraoperative Record Main OR Intraoperative Record IntraOp Document Type FTURO Summary Primary Physician: Maura Payne MD Finalized Date/Time: 02/10/24 10:18:57 Pt. Name: JUAN FRANCISCO PHILLIPS/Sex: 1965 Male Med Rec #: [id number] Physician: Maura Payne MD Financial #: [id number] Pt. Type: O Room/Bed: / Admit/Disch: 02/10/24 08:51:44 - Institution: Case Times FTURO Entry 1 Patient Times In Room 02/10/24 09:52:00 Out Room 02/10/24 10:17:00 Procedure Times Start 02/10/24 10:04:00 Stop 02/10/24 10:12:00 Anesthesia Times Last Modified By: Hien Dutta 02/10/24 10:18:30 Case Attendance FTURO Entry 1 Entry 2 Entry 3 Case Attendee Elmer GÓMEZ, Hien Mei CST, Kimberly A Role Performed Surgeon - Primary Local Superintendent - Primary Scrub - Primary Time In 02/10/24 09:52:00 02/10/24 09:52:00 02/10/24 09:52:00 Time Out 02/10/24 10:17:00 02/10/24 10:17:00 02/10/24 10:17:00 Procedure CYSTOSCOPY LOCAL CYSTOSCOPY LOCAL CYSTOSCOPY LOCAL UROLIFT(.) UROLIFT(.) UROLIFT(.) Comments Last Modified By: Hien Dutta Kelsie E Burgderfer, Kelsie E 02/10/24 10:18:31 02/10/24 10:18:31 02/10/24 10:18:31 Surgical Procedures FTURO Entry 1 Procedure Description Procedure CYSTOSCOPY LOCAL UROLIFT Modifiers . Surgeon Description CYSTOSCOPY LOCAL UROLIFT Primary Procedure Yes Primary Surgeon Maura Payne MD Start 02/10/24 10:04:00 Stop 02/10/24 10:12:00 Anesthesia Type Local Surgical Service Urology Wound Class 2 - Clean-Contaminated Last Modified By: Hien Dutta 02/10/24 10:12:58 General Case Data FTURO Pre-Care Text: Classifies surgical wound, implements aseptic technique, initiates traffic control Entry 1 Case Information OR URO 1 FT Case Level None Wound Class 2 - Clean-Contaminated Specialty Urology Preop Diagnosis BPH WITH URINARY Postop Same As Preop Yes OBSTRUCTION Postop Diagnosis BPH WITH URINARY Outcomes Met? Yes OBSTRUCTION Last Modified By: Hien Dutta 02/10/24 09:50:24 Post-Care Text: The patient is free from signs and symptoms of infection EU IntraOp - FTURO Pre-Care Text: Implements protective measures prior to operative or invasive procedure, confirms identity before the operative or invasive procedure, verifies operative procedure, surgical site, and laterality Entry 1 EU Perioperative Protocols Procedure(s) CYSTOSCOPY LOCAL Patient Identity Birthday, ID Band UROLIFT(.) Verified (select at Check, Patient least 2): Participation Consents / H and P HandP, Surgery/Procedure Operative Site N/A Verified Consent Marking Verified Surgical Site Yes Laterality Verified n/a Verified Procedure Verified Yes Correct Patient Yes Position Verified Availability Equipment, Implant, Time Out Maura Payne MD, Verified (If Medication Participants Hien Dutta, Applicable) Sanam Fernandez CST Time Out Complete 02/10/24 10:01:00 Allergies Reviewed? Yes Allergies Reviewed Self/Patient With Body Position High Lithotomy Prep Area PENIS Prep Agents Betadine Solution Skin. Condition Unable to Visualize Description N/A Additional None Specimens Comment N/A Specimens Collected Vitals - EU Blood Pressure 147/88 Pulse 69 bpm Respirations 20 br/min SPO2 97 % EBL 0 IandO - EU Total Intake 0 mL Total Output 0 mL Outcomes Met? Yes Last Modified By: Hien Dutta 02/10/24 10:01:15 Post-Care Text: The patient is free from signs and symptoms of injury caused by extraneous objects Implant Log FTURO Pre-Care Text: Records devices implanted during the operative or invasive procedure Entry 1 Implant/Explant Implant Implant Identification Description UROLIFT Lot Number [id number] Assistant Manager Bilingual UROLIFT Catalog ?# [id number] Expiration Date 04/03/25 Usage Data Implant Site PROSTATE Quantity 6 Outcomes Met? Yes Last Modified By: Hien Dutta 02/10/24 10:11:59 Post-Care Text: The patient is free from signs and symptoms of injury caused by extraneous objects Sign Out FTURO Entry 1 Before Patient Leaves OR Nurse verbally Yes Nurse verbally n/a confirms with the confirms with the team the name of team that the procedure(s) instrument, sponge, recorded and needle counts are correct (or N/A) Nurse verbally n/a Nurse verbally Yes confirms with the confirms with the team how the team whether there specimen is labeled are any equipment (including patient problems to be name), if applicable addressed Sign Out Complete 02/10/24 10:12:00 Last Modified By: Hien Dutta 02/10/24 10:12:54 Case Comments Finalized By: Hien Dutta Document Signatures Signed By: Hien Dutta 02/10/24 10:18 Hien Dutta 02/10/24 10:18 Hien Dutta 02/10/24 10:18 Hien Dutta 02/10/24 10:18 Hien Dutta 02/10/24 10:18 [facility] Main OR Preoperative Recordo n 02-10-2024 Main OR Preoperative Record Main OR Preoperative Record Holding Area Document Type FTURO Summary Primary Physician: Maura Payne MD Finalized Date/Time: 02/10/24 10:04:13 Pt. Name: JUAN FRANCISCO PHILLIPS Umair Cox/Sex: 1965 Male Med Rec #: [id number] Physician: Maura Payne MD Financial #: [id number] Pt. Type: O Room/Bed: / Admit/Disch: 02/10/24 08:51:44 - Institution: Case Times Holding FTURO Pre-Care Text: Verifies consent for planned procedure, identifies individual values and wishes concerning care, includes family members in perioperative teaching Secures patient's records' belongings, and valuables, maintains patient's dignity and privacy, and maintains patient confidentiality Entry 1 In Holding 02/10/24 09:16:00 Outcomes Met? Yes Last Modified By: Lona Banks LPN 02/10/24 09:16:26 Post-Care Text: The patient participates in decisions affecting his or her perioperative plan of care The patient's right to privacy is maintained Surgery Checklist FTURO Entry 1 Patient Birthday, ID Band Procedure History and Physical, Identification: Check, Patient Verification: Surgical Consent, With Participation Patient NPO after Midnight: n/a Personal Items: Contact Lenses Limitations: up ad magdi Complaints of Pain: No Skin Integrity Intact, Horine, Warm, & Dry Vitals - EU Blood Pressure 147/88 Pulse 69 bpm Respirations 20 br/min SPO2 97 % Additional None RN Reviewed Yes Specimens Collected Last Modified By: Hien Dutta 02/10/24 09:56:57 Finalized By: Hien Dutta Document Signatures Signed By: Lona Banks LPN 02/10/24 09:22 Lona Banks LPN 02/10/24 09:22 Hien Dutta 02/10/24 10:[address] [facility] Operative Reporton Operative Report Operative Report Patient: JUAN FRANCISCO PHILLIPS Age: 58 years Sex: Male : 1965 Associated Diagnoses: None Author: Maura Payne MD Procedure Operative Information Details: Date/ Time: 02/10/2024 10:26:00. Pre-Op Dx: BPH w/ LUTS - N40.1. Post-Op Dx: Same. Anesthesia Type: Local. Procedure: Cystoscopy with UroLift Prostatic Urethral Lift. Complications: None. Risks/Benefits/Inform ed Consent: Surgical risks, benefits, details of the procedure have been explained to the patient, Full informed consent has been obtained. Indications: INDICATIONS: 58-year-old male with benign prostatic hyperplasia and bothersome voiding symptoms including obstruction. Specifically, the patient has an IPSS of 17, post-void residual volume (PVR) of 14 ml, and serum PSA level of 2.22 ng/ml. TRUS confirms a 25 gram prostate volume. Office cystoscopy demonstrates moderate bilateral lateral lobe obstruction without median lobe component. His symptoms have failed to improve on medical therapy (alpha blockers). After discussion of surgical treatment options, the patient elected a prostatic urethral lift procedure in which permanent transprostatic implants are installed to create a wider channel by which to void. Other surgical alternatives were rejected due to known adverse sexual side effects. . Intraoperative Information Procedure: PROCEDURE: Patient received local anesthesia: 10 mg diazepam 45 min prior, 33 cc 2% lidocaine gel to urethra; penile clamp installed for 30 min dwell prior to procedure. Additional 11ml lidocaine gel inserted per urethra after clamp removed and patient prepped/draped in the usual sterile fashion. A 20F cystoscope was inserted into the bladder. The cystoscopy bridge was replaced with a UroLift UL-2 delivery device. The first treatment site was the patient's left side approximately 1.5 cm distal to the bladder neck. The distal tip of the delivery device was then angled anterior laterally approximately 10 degrees at this position to compress the lateral lobe. The trigger was pulled, thereby deploying a needle containing the implant through the prostate. The implant was additionally compressed for total 20 degrees, trigger pulled and needle was then retracted, allowing one end of the implant to be delivered to the capsular surface of the prostate. The implant was then tensioned to assure capsular seating and removal of slack monofilament. The device was then angled back toward midline and slowly advanced proximally (typically 3 to 4 mm) until cystoscopic verification of the monofilament being centered in the delivery bay. The urethral end piece was then affixed to the monofilament thereby tailoring the size of the implant. Excess filament was then severed. The delivery device was then re-advanced into the bladder. The delivery device was then replaced with cystoscope and bridge and the implant location and opening effect was confirmed cystoscopically. The same procedure was then repeated on the right side, and two additional implants were delivered in the mid prostate. Cystoscopy then revealed a persistent area of obstruction, and two more implants were delivered just proximal to the verumontanum, again one on right and one on left side of the prostate, following a similar technique. A final cystoscopy was conducted first to inspect the location and state of each implant and second, to confirm the presence of a continuous anterior channel was present through the prostatic urethra with irrigation flow turned off. All instruments were removed. The patient's bladder was left full to allow patient to void prior to discharge home. The patient tolerated the procedure well without complication. . Specimens Removed: None. Devices Implanted: 6 implants attempted, 6 seated. Postoperative Information Discharge: The patient tolerated the procedure well and was subsequently discharged home, Follow up in 1 [address]. [facility] Comment on above: Result Comment: Elec tronically Signed By: Elmer GÓMEZ, Maura Curtis.harmeet\Date and Time Signed: 02/10/24 10:28 EDT Outpatient Surgery Discharge Instructionon 02-10-2024 Outpatient Surgery Discharge Instruction Outpatient Surgery Discharge Instruction [address] [address] Patient Discharge Instructions PERSON INFORMATION Name: JUAN FRANCISCO PHILLIPS Date of : 1965 Current Date: 02/10/2024 10:18:22 PHYSICIANS Admitting Physician: Maura Payne MD. Comment: Discharge Diagnosis: BPH with urinary obstruction; Other obstructive and reflux uropathy JUAN FRANCISCO PHILLIPS has been given the following list of follow-up instructions, prescriptions, and patient education materials: IF UNABLE TO CONTACT YOUR PHYSICIAN AND YOU FEEL IT IS AN EMERGENCY, GO TO THE NEAREST EMERGENCY ROOM OR CALL 911 Follow up: With: Address: When: Maura Elmer [address], [place] [phone] Business (1) [address], [place] [address], [employer] [place] [address] [place] [address] [phone] Business (1) Comments: Office to schedule follow up in 1 month with PVR Comment: PATIENT EDUCATION INFORMATION Instructions: [facility] [place], [place] Post-Operative Instructions for UroLift After your procedure it is normal to have: Gross Hematuria (blood in the urine) You may even notice blood clots in your urine. A small amount of blood may apppear to be a lot of blood in your urine as it is diluted. Restarting your blood thinner, increased activity and heavy lifting could increase the amount of bleeding. The bleeding may be sporadic (off and on) over the next 2-3 weeks. Ensure you are hydrating to assist in flushing the blood to prevent voiding complications. In the event you are unable to void, please reach out to our office. If the office is closed, you will need to report to the local emergency room. Blood in your semen and stool may be present. The blood in your semen is not harmful to you or your partner. This will resolve with time. Frequency/urgency/bur renee with urination is very common. This is due to irritation from your procedure. These symptoms do not indicate that your procedure was unsuccessful or that there is an infection. Ensure you are hydrating! You may try AZO over the counter as needed for urinary discomfort. Pain/discomfort are normal as well. There has been a non-narcotic prescription sent to your pharmacy. You may alternate this prescription with over the counter Ibuprofen. Your pain and discomfort should improve within a few days. When do I need to call the office? We ask that you reach out to the office if you experience a temperature of 100.4 ? F or higher, excessive urinary bleeding, symptoms of infection, inability to urinate or uncontrolled pain. If the office is closed, you may need to present to the local emergency department. Mares catheter If you have a catheter and will remove it at home, you may do so the next day if urine is clear and no longer red/pink in color. If urine is red, wait until clear to remove the catheter. See attached instructions for removal. Postop UroLift Instructions ? Complete your antibiotic as instructed. ? Remain on all your urinary medication until follow up. ? Take your pain madications and AZO as needed. ? Resume any blood thinners 48 hour post procedure. ? Continue to hydrate! ? Minimize your activity for 72-96 hours post procedure. ? If you are prescribed Oxybutynin for bladder spasms, you may take this medication every 8 hours as needed. This medication may cause dry mouth/eyes and constipation. Taking an over the counter stool softener and drinking plenty of water will help with side effects. Mares Catheter Removal Your healthcare provider has instructed you to remove your Mares catheter. This is a thin, flexible tube that allows urine to drain out of your bladder and into a bag. It is important to properly remove your catheter to prevent infection and other complications. If you have any questions about removing the Mares catheter, ask your healthcare provider before trying to remove it. Otherwise, follow the instructions on this sheet. Mares Catheter The Mares catheter is held in place by a small balloon that is filled with water. To remove the catheter, you must first drain the water from the balloon. This is done using a syringe and the balloon port. This is the opening in the catheter that is not attached to the bag. It allows you to get to the balloon. Instructions for Removing the Catheter Follow the directions closely. Note: If the catheter does not come out with gentle pulling, stop and call your healthcare provider right away. ? Empty the bag of urine if needed. ? Wash your hands with soap and warm water. Dry them well. ? Gather your supplies. This includes a syringe that was given to you by your healthcare provider, a wastebasket, and a towel. ? Put the syringe into the balloon port on the catheter. The syringe fits tightly into the port with a firm push and twist motio (more content not included)... Normal [facility] Consent for Procedure/Surger yon 12-19-2023 Consent for Procedure/Surgery [id number]#1. 00TIFF Normal [facility] Physician Referralon 024 Physician Referral [id number]#1. 00TIFF Normal [facility] Screenson 12-04-2023 Screens [id number]# 1.00TIFF [facility] Urology Office/Clinic Noteon 12-03-2023 Urology Office/Clinic [...] BID adding an additional agent such as finasteride/dutasteri de I discussed with the patient the different [...] been obtained. Will order Local anesthesia. Ordered: [id number] Measure Post Void residual urine and/or bladder capacity by US- non-imaging Urnls Dip Stick Auto w/o Microscopy POC 03938 2. Increased prostate specific antigen (PSA) velocity, [...] work up for now and discuss further w MD at the time of cysto/TRUS. Ordered: [id number] Measure Post Void residual urine and/or bladder [...] Knee. Medicat (more content not included)... Normal [facility] Comment on above: Result Comment: Elec tronically Signed By: ESTELA CHRIS PA-C.br\Date and Time Signed: 12/03/23 16:04 EDT\.br\Electronically Co-Signed By: Linda Vela.br\Date and Time Co-Signed: 12/03/23 15:55 EDT Neal 03-30-2022 L - -------- Specimen: [id number] Received: 03/30/22 Status: KAEErika Kimble Num: [id number] Spec Type: Surgical Subm Dr: Elmo Clay DO Tissues: A Hernia Sac (HERNIA SAC) Procedures: HE Stain, Gross/Micro L2 -------- Age/ Patient Sex Location Account Attending Physician -------- Juan Francisco Phillips/Umair ADLER [id number] Elmo Clay DO -------- SPEC NUM: [id number] RECD: 03/30/22 STATUS: TISHA SHYANNE NUM: [id number] CINDY: 03/30/22- SUBM DR: Elmo Clay DO ENTERED: 03/30/[address] [facility] [address]: Marquis [facility] SPEC TYPE: Surgical DEPT: S ORDERED: HE Stain, Gross/Micro L2 ORDERED: HE Stain, Gross/Micro L2 Pathological Diagnosis Hernia sac, resection: Clinical Information Umbilical hernia Gross Description Received in formalin labeled with the patient's name, number and hernia sac is a 5.0 x 3.8 x 1.8 cm aggregate of yellow, lobular, focally hyperemic fat with a yellow, lobular cut surface.. Director Of [employer] sections are submitted in one cassette labeled A1. Microscopic Description One glass slide with H E stained material has been examined. The microscopic findings support the above pathologic diagnosis. CPT Codes 89040 -------- -------- Specimen: [id number] Received: 03/30/22 Status: TISHA Shyanne Num: [id number] Spec Type: Surgical Subm Dr: Elmo Clay DO Tissues: A Hernia Sac (HERNIA SAC) Procedures: HE Stain, Gross/Micro L2 -------- Patient: Juan Francisco Phillips [id number] (Continued) -------- Signed (signature on file) Tamika Rodriguez MD 04/02/22 1054 [facility] Covid-19 PCR (CVDTB)on SARS-CoV-2 (COVID-19) RNA GEORGIE+probe Ql (Unsp spec) Not detected Normal NOT DETECTED [facility] Comment on above: Result Comment: This test is not yet approved or cleared by the [place] FDA. When there are no FDA-approved or cleared tests available, and other criteria are met, FDA can make tests available under an emergency access mechanism called an Emergency Use Authorization (EUA). The EUA for this test is supported by the Psychology Assistant of Health and Human Service's (HHS's) declaration [...] SARS-CoV-2. Performed By: #### C VDTB #### [facility] [address] [place] [address] Dr. Renny Patel CBC AUTO DIFFon 01-17-2022 BASO # 0.0 103/ul Normal 0.0-0.1 [facility] Comment on above: Performed By: #### C BC #### [facility] [address] [place] [address] Dr. Renny Patel Basophils/100 WBC (Bld) 0.2 % Normal 0.2-2.0 [facility] Comment on above: Performed By: #### C BC #### [facility] [address] [place] [address] Dr. Renny Patel EO # 0.0 103/ul Normal 0.0-0.7 [facility] Comment on above: Performed By: #### C BC #### [facility] [address] [place] [address] Dr. Renny Patel Eosinophils/100 WBC (Bld) 0.2 % Critically low 0.9-7.0 [facility] Comment on above: Performed By: #### C BC #### [facility] [address] [place] [address] Dr. Renny Patel Erythrocyte distribution width (RBC) [Ratio] 12.8 % Normal 11.0-15.0 [facility] Comment on above: Performed By: #### C BC #### [facility] [address] [place] [address] Dr. Renny Patel Hematocrit (Bld) [Volume fraction] 45.1 % Normal 42.0-54.0 [facility] Comment on above: Performed By: #### C BC #### [facility] [address] [place] [address] Dr. Renny Patel Hemoglobin (Bld) [Mass/Vol] 14.7 g/dL Normal 14.0-18.0 [facility] Comment on above: Performed By: #### C BC #### [facility] [address] [place] [address] Dr. Renny Patel IG # 0.03 10e3/ul Normal 0.00-0.03 [facility] Comment on above: Performed By: #### C BC #### [facility] [address] [place] [address] Dr. Renny Patel IG % 0.4 % Normal 0.0-0.5 [facility] Comment on above: Performed By: #### C BC #### [facility] [address] [place] [address] Dr. Renny Patel LYMPH # 1.9 103/ul Normal 1.2-3.8 [facility] Comment on above: Performed By: #### C BC #### [facility] [address] [place] [address] Dr. Renny Patel Lymphocytes/100 WBC (Bld) 22.8 % Normal 20.5-60.0 [facility] Comment on above: Performed By: #### C BC #### [facility] [address] [place] [address] Dr. Renny Patel MANUAL DIFF REQ NO Normal [facility] Comment on above: Performed By: #### C BC #### [facility] [address] [place] [address] Dr. Renny Patel MCH (RBC) [Entitic mass] 29.1 pg Normal 25.9-34.0 [facility] Comment on above: Performed By: #### C BC #### [facility] [address] [place] [address] Dr. Renny Patel MCHC (RBC) [Mass/Vol] 32.6 g/dL Normal 29.9-35.2 [facility] Comment on above: Performed By: #### C BC #### [facility] [address] [place] [address] Dr. Renny Patel MCV (RBC) [Entitic vol] 89.1 fL Normal 80.0-94.0 [facility] Comment on above: Performed By: #### C BC #### [facility] [address] [place] [address] Dr. Renny Patel MONO # 0.7 103/ul Normal 0.3-0.8 [facility] Comment on above: Performed By: #### C BC #### [facility] [address] [place] [address] Dr. Renny Patel Monocytes/100 WBC (Bld) 8.4 % Normal 1.7-12.0 [facility] Comment on above: Performed By: #### C BC #### [facility] [address] [place] [address] Dr. Renny Patel NEUT # 5.8 103/ul Normal 1.4-6.5 [facility] Comment on above: Performed By: #### C BC #### [facility] [address] [place] [address] Dr. Renny Patel Neutrophils/100 WBC (Bld) 68.0 % Normal 43.0-75.0 [facility] Comment on above: Performed By: #### C BC #### [facility] [address] [place] [address] Dr. Renny Patel Platelet mean volume (Bld) [Entitic vol] 9.4 fL Critically low 9.5-13.5 [facility] Comment on above: Performed By: #### C BC #### [facility] [address] [place] [address] Dr. Renny Patel PLT 247 103/ul Normal 150-450 [facility] Comment on above: Performed By: #### C BC #### [facility] [address] [place] [address] Dr. Renny Patel RBC 5.06 106/ul Normal 4.70-6.10 [facility] Comment on above: Performed By: #### C BC #### [facility] [address] [place] [address] Dr. Renny Patel WBC 8.5 103/ul Normal 4.0-11.0 [facility] Comment on above: Performed By: #### C BC #### [facility] [address] [place] [address] Dr. Renny Patel PROF 14(COMP METB)on 022 Albumin [Mass/Vol] 3.8 g/dL Normal 3.4-5.0 [facility] Comment on above: Performed By: #### U KEVIN, CMP #### [facility] [address] [place] [address] Dr. Renny Patel Albumin/Globulin [Mass ratio] 1.0 {ratio} Normal [facility] Comment on above: Performed By: #### U KEVIN, CMP #### [facility] [address] [place] [address] Dr. Renny Patel ALP [Catalytic activity/Vol] 54 U/L Normal 46-116 [facility] Comment on above: Performed By: #### U KEVIN, CMP #### [facility] [address] [place], [place] [id number] Dr. Renny Patel ALT [Catalytic activity/Vol] 60 U/L Normal 16-63 [facility] Comment on above: Performed By: #### U KEVIN, CMP #### [facility] [address] [address] [address] Renny Patel Anion gap [Moles/Vol] 8.7 mmol/L Normal [facility] Comment on above: Performed By: #### U KEVIN, CMP #### [facility] [address] [address] [address] Renny Patel AST [Catalytic activity/Vol] 22 U/L Normal 15-37 [facility] Comment on above: Performed By: #### U KEVIN, CMP #### [facility] [address] [place] [address] Dr. Renny Patel Bilirubin [Mass/Vol] 0.8 mg/dL Normal 0.2-1.0 [facility] Comment on above: Performed By: #### U KEVIN, CMP #### [facility] [address] [place] [address] Dr. Renny Patel Calcium [Mass/Vol] 9.4 mg/dL Normal 8.5-10.1 [facility] Comment on above: Performed By: #### U KEVIN, CMP #### [facility] [address] [place] [address] Dr. Renny Patel Chloride [Moles/Vol] 104 mmol/L Normal 98-107 [facility] Comment on above: Performed By: #### U KEVIN, CMP #### [facility] [address] [place] [address] Dr. Renny Patel CO2 [Moles/Vol] 27.6 mmol/L Normal 21.0-32.0 [facility] Comment on above: Performed By: #### U KEVIN, CMP #### [facility] [address] [place] [address] Dr. Renny Patel Creatinine [Mass/Vol] 0.99 mg/dL Normal 0.70-1.30 [facility] Comment on above: Performed By: #### U KEVIN, CMP #### [facility] [address] [address] [address] Renny Patel EGFR-AF BURUNDIAN >60 Normal >=60 [facility] Comment on above: Performed By: #### U KEVIN, CMP #### [facility] [address] [address] [address] Renny Patel EGFR-NON AF BURUNDIAN >60 Normal >=60 [facility] Comment on above: Performed By: #### U KEVIN, CMP #### [facility] [address] [address] [address] Renny Patel Globulin (S) [Mass/Vol] 3.9 g/dL Normal [facility] Comment on above: Performed By: #### U KEVIN, CMP #### [facility] [address] [address] [address] Renny Patel Glucose [Mass/Vol] 123 mg/dL Critically high 74-106 [facility] Comment on above: Performed By: #### U KEVIN, CMP #### [facility] [address] [address] [address] Renny Patel Potassium [Moles/Vol] 4.3 mmol/L Normal 3.5-5.1 [facility] Comment on above: Performed By: #### U KEVIN, CMP #### [facility] [address] [address] [address] Renny Patel Protein [Mass/Vol] 7.7 g/dL Normal 6.4-8.2 [facility] Comment on above: Performed By: #### U KEVIN, CMP #### [facility] [address] [address] [address] Renny Patel Sodium [Moles/Vol] 136 mmol/L Normal 136-145 [facility] Comment on above: Performed By: #### U KEVIN, CMP #### [facility] [address] [address] [address] Renny Patel Urea nitrogen [Mass/Vol] 15.0 mg/dL Normal 7.0-18.0 [facility] Comment on above: Performed By: #### U KEVIN, CMP #### [facility] [address] [address] [address] Renny Patel Urea nitrogen/Creatinine [Mass ratio] 15.2 mg/mg Normal [facility] Comment on above: Performed By: #### U KEVIN, CMP #### [facility] [address] [id number] [address] Renny Patel URIC ACID SERUMon 01-17-2022 Urate [Mass/Vol] 4.9 mg/dL Normal 3.5-7.2 [facility] Comment on above: Performed By: #### U KEVIN, CMP #### [facility] [address] [address] [address] Renny Patel Vital Signs Date Time Vital Sign Value Performing Clinician Faci lity 12-03-2023 15:28-0400 Diastolic blood pressure 88 mm[Hg] ESTELA SHARPRY [facility] 12-03-2023 15:28-0400 Mean blood pressure 108 mm[Hg] ESTELA ARIES [facility] 12-03-2023 15:28-0400 Systolic blood pressure 147 mm[Hg] ESTELA ARIES [facility] 12-03-2023 15:16-0400 Blood Pressure Location ESTELA ARIES [facility] 12-03-2023 15:16-0400 Diastolic blood pressure 83 mm[Hg] ESTELA ARIES [facility] 12-03-2023 15:16-0400 Heart rate 87 /min ESTELA ARIES [facility] 12-03-2023 15:16-0400 Systolic blood pressure 147 mm[Hg] ESTELA ARIES [facility] Encounters Encounter Date Encounter Type Care Provider Facility Start: 04-01-2024 ambulatory Maura Payne Facility:[facility] Start: 02-10-2024 End: 02-10-2024 ambulatory Maura Payne Facility:[facility] Start: 02-10-2024 End: 02-10-2024 Patient encounter procedure Maura UmairJennifer Marvinjohn [facility] Start: 02-04-2024 End: 02-04-2024 ambulatory MARCI CURTIS Not Available Start: 01-30-2024 End: 01-30-2024 ambulatory MICHAEL Erika BLACK[place]ON Not Available Start: 01-20-2024 End: 01-20-2024 ambulatory MICHAEL T BLACK[place]ON Not Available Start: 01-15-2024 End: 01-16-2024 ambulatory MICHAEL Erika [place]ON Not Available Start: 01-08-2024 End: 01-08-2024 ambulatory MARCI CURTIS Not Available Start: 01-07-2024 End: 01-07-2024 ambulatory MICHAEL Erika BLACK[place]ON Not Available Start: 12-24-2023 End: 12-24-2023 ambulatory BLAZE GARCIA Not Available Start: 12-18-2023 End: 12-18-2023 ambulatory BRISSA BARRERA Not Available Start: 12-11-2023 End: 12-11-2023 ambulatory Maura UmairJennifer Marvinjohn Facility: [facility] Start: 12-11-2023 End: 12-11-2023 Off-Site Maura Marvinjohn [facility] Start: 12-10-2023 End: 12-10-2023 ambulatory MICHAEL James [place] Not Available Start: 12-04-2023 End: 12-04-2023 ambulatory MARCI CURTIS Not Available Start: 12-03-2023 End: 12-03-2023 ambulatory ESTELA CHRIS [facility] Start: 12-03-2023 End: 12-03-2023 Patient encounter procedure ESTELA CHRIS [facility] Start: 11-25-2023 ambulatory ESTELA CHRIS Facility :[facility] Start: 07-29-2023 End: 07-29-2023 ambulatory MARCI Gray KIRSTEN Not Available Start: 07-01-2023 End: 07-01-2023 ambulatory MARCI Gray KIRSTEN Not Available Start: 04-01-2022 Encounter for preprocedural laboratory examination DR ELMO CLAY [facility] Start: 03-30-2022 End: 03-30-2022 ambulatory Elmo Clay Facility:[facility] Start: 03-30-2022 End: 03-30-2022 Departed Referred DO Elmo Clay Work Phone: [facility] Start: 03-28-2022 End: 03-29-[address] ELMO CLAY Facility:[facility] Start: 03-28-2022 End: 03-29-2022 Encounter for preprocedural laboratory examination DR ELMO CLAY Facility:[facility] Start: 03-02-[address] KIARA JARQUIN Fac ility:[facility] Start: 02-28-2022 Encounter for preprocedural cardiovascular examination DR ELMO CLAY [facility] Start: 02-27-2022 End: 02-28-2022 Encounter for preprocedural cardiovascular examination DR ELMO CLAY Facility:[facility] Start: 02-27-2022 End: 02-28-[address] ELMO CLAY Facility:[facility] Start: 01-17-2022 End: 01-18-[address] KUNAL MICHELLE Facility:[facility] Procedures Date Procedure Procedure Detail Performing Clinician Start: 07-22-2022 Total knee replacement ESTELA CHRIS Start: 01-17-[address] SORAYA MICHELLE Comment on above: Performed By: #### P SAD #### [facility] [address] [place] [address] Dr. Renny Patel Start: 07-22-2021 Total knee replacement ESTELA CHRIS Herniated structure (morphologic abnormality) ESTELA CHRIS Insertion of hip prosthesis ESTELA CHRIS Knee region structur e (body structure) ESTELA CHIRS Immunizations Immunization Date Immunization Notes Care Provider Shraddha donald 05-09-2023 influenza virus vaccine, unspecified formulation ESTELA CHRIS [facility] 05-09-2023 tetanus toxoid, redu daphne diphtheria toxoid, and acellular pertussis vaccine, adsorbed ESTELAJARETH CHRIS [facility] 10-25-2020 SARS-CoV-2 (COVID-19 ) mRNA BNT-162b2 vax ESTELA CHRIS [facility] 10-04-2020 SARS-CoV-2 (COVID-19 ) mRNA BNT-162b2 vax ESTELA CHRIS [facility] 06-03-2018 influenza virus vaccine, unspecified formulation ESTELA CHRIS [facility] Payers Date Payer Category Payer Unknown [id number] 2022 Self-pay 1965 Unknown [id number] 2.16.84 0.1.805136.3.579.2.593 1965 Unknown [id number] 2.16.84 0.1.275850.3.579.2.593 1965 Unknown [id number] 2.16.84 0.1.685247.3.579.2.593 1963 Unknown [id number] 2.16.84 0.1.404373.3.579.2.593 1963 Unknown [id number] 2.16.84 0.1.240219.3.579.2.593 1963 Unknown [id number] 2.16.84 0.1.566611.3.579.2.125 1965 Unknown [id number] 2.16.84 0.1.995243.3.579.2.1258 1963 Unknown [id number] 2.16.84 0.1.808833.3.579.2.1258 1963 Unknown [id number] 2.16.84 0.1.474580.3.579.2.1258 1963 Unknown [id number] 2.16.84 0.1.007790.3.579.2.1258 1963 Unknown [id number] 2.16.84 0.1.468647.3.579.2.1258 1963 Unknown [id number] 2.16.84 0.1.010696.3.579.2.1258 1963 Unknown [id number] 2.16.84 0.1.348489.3.579.2.1258 1963 Unknown [id number] 2.16.84 0.1.746371.3.579.2.1258 1963 Unknown [id number] 2.16.84 0.1.673977.3.579.2.1258 1963 Unknown [id number] 2.16.84 0.1.412593.3.579.2.1258 1963 Unknown [id number] 2.16.84 0.1.573190.3.579.2.1258 1963 Unknown [id number] 2.16.84 0.1.584924.3.579.2.1258 1963 Unknown [id number] 2.16.840 .1.579905.3.579.2.1258 1963 Unknown [id number] 2.16.840 .1.180606.3.579.2.1258 1963 Unknown [id number] 2.16.840 .1.883049.3.579.2.1258 1963 Unknown [id number] 2.16.8 40.1.356123.3.579.2.727 1963 Unknown [id number] 2.16.8 40.1.895924.3.579.2.727 1963 Unknown [id number] 2.16.8 40.1.639283.3.579.2.727 1963 Unknown [id number] 2.16.8 40.1.746792.3.579.2.727 1959 Unknown [id number] Unknown [id number] 2.16.8 40.1.835233.3.579.2.531 Social History Date Type Detail Facility Tobacco smoking stat [facility] Unknown if ever smoked [facility] Work Phone: Start: 1965 Sex Assigned At Male F [facility] Start: 12-03-2023 Tobacco smoking status Never s moked tobacco (finding) [facility] Tobacco smoking status Never [facility] Sex Assigned At Male [facility] Functional Status Date Assessment Result Facility 02-10-2024 Functional Status N/A [facility] 12-03-2023 Functional Status N/A [facility] Hospital Discharge instructions 02-10-2024 Note Date & Type Note Facility 02-10-2024 Hospital Discharg e instructions Patient Education 02/10/2024 10:18:20 [facility] Post-Op Instructions (CUSTOM) [facility] [place], [place] Post-Operative Instructions for UroLift After your procedure it is normal to have: Gross Hematuria (blood in the urine) You may even notice blood clots in your urine. A small amount of blood may apppear to be a lot of blood in your urine as it is diluted. Restarting your blood thinner, increased activity and heavy lifting could increase the amount of bleeding. The bleeding may be sporadic (off and on) over the next 2-3 weeks. Ensure you are hydrating to assist in flushing the blood to prevent voiding complications. In the event you are unable to void, please reach out to our office. If the office is closed, you will need to report to the local emergency room. Blood in your semen and stool may be present. The blood in your semen is not harmful to you or your partner. This will resolve with time. Frequency/urgency/burning with urination is very common. This is due to irritation from your procedure. These symptoms do not indicate that your procedure was unsuccessful or that there is an infection. Ensure you are hydrating! You may try AZO over the counter as needed for urinary discomfort. Pain/discomfort are normal as well. There has been a non-narcotic prescription sent to your pharmacy. You may alternate this prescription with over the counter Ibuprofen. Your pain and discomfort should improve within a few days. When do I need to call the office? We ask that you reach out to the office if you experience a temperature of 100.4 F or higher, excessive urinary bleeding, symptoms of infection, inability to urinate or uncontrolled pain. If the office is closed, you may need to present to the local emergency department. Mares catheter If you have a catheter and will remove it at home, you may do so the next day if urine is clear and no longer red/pink in color. If urine is red, wait until clear to remove the catheter. See attached instructions for removal. Postop UroLift Instructions Complete your antibiotic as instructed. Remain on all your urinary medication until follow up. Take your pain madications and AZO as needed. Resume any blood thinners 48 hour post procedure. Continue to hydrate! Minimize your activity for 72-96 hours post procedure. If you are prescribed Oxybutynin for bladder spasms, you may take this medication every 8 hours as needed. This medication may cause dry mouth/eyes and constipation. Taking an over the counter stool softener and drinking plenty of water will help with side effects. Mares Catheter Removal Your healthcare provider has instructed you to remove your Mares catheter. This is a thin, flexible tube that allows urine to drain out of your bladder and into a bag. It is important to properly remove your catheter to prevent infection and other complications. If you have any questions about removing the Mares catheter, ask your healthcare provider before trying to remove it. Otherwise, follow the instructions on this sheet. Mares Catheter The Mares catheter is held in place by a small balloon that is filled with water. To remove the catheter, you must first drain the water from the balloon. This is done using a syringe and the balloon port. This is the opening in the catheter that is not attached to the bag. It allows you to get to the balloon. Instructions for Removing the Catheter Follow the directions closely. Note: If the catheter does not come out with gentle pulling, stop and call your healthcare provider right away. Empty the bag of urine if needed. Wash your hands with soap and warm water. Dry them well. Gather your supplies. This includes a syringe that was given to you by your healthcare provider, a wastebasket, and a towel. Put the syringe into the balloon port on the catheter. The syringe fits tightly into the port with a firm push and twist motion. Wait as the water from the balloon empties into the syringe. Depending on how large the balloon is, you may need to repeat this process several times until all of the water is out of the balloon. Once the balloon is emptied, gently pull out the catheter. Put the used catheter in the wastebasket. Throw away the syringe. Use the towel to wipe up any spilled water or urine if needed. Wash your hands again. When to Call Your Healthcare Provider Call the healthcare provider right away if: You have a fever of 100.4 F (38 C) or higher, or as directed by your healthcare provider. You have questions about removing the catheter. The catheter does not come out with gentle pulling. You cannot urinate within 8 hours of removing the catheter. Your belly (abdomen) is painful or bloated You have burning pain with urination that lasts for 24 hours. You see a lot of blood in your urine. Light bleeding for 24 hours is normal. It feels like the bladder is not emptying. Follow Up Care 01/17/2024 10:32:06 With:Maura Payne Address: [address] [place] [phone] Business (1) [address] [place] [phone] Business (1) When: Unknown Comments:Office to schedule follow up in 1 month with [facility] Clinical Note 02-10-2024 Note Date & Type Note Facility 02-10-2024 Note Patient Education [facility] [place], [place] Post-Operative Instructions for UroLift After your procedure it is normal to have: Gross Hematuria (blood in the urine) You may even notice blood clots in your urine. A small amount of blood may apppear to be a lot of blood in your urine as it is diluted. Restarting your blood thinner, increased activity and heavy lifting could increase the amount of bleeding. The bleeding may be sporadic (off and on) over the next 2-3 weeks. Ensure you are hydrating to assist in flushing the blood to prevent voiding complications. In the event you are unable to void, please reach out to our office. If the office is closed, you will need to report to the local emergency room. Blood in your semen and stool may be present. The blood in your semen is not harmful to you or your partner. This will resolve with time. Frequency/urgency/burning with urination is very common. This is due to irritation from your procedure. These symptoms do not indicate that your procedure was unsuccessful or that there is an infection. Ensure you are hydrating! You may try AZO over the counter as needed for urinary discomfort. Pain/discomfort are normal as well. There has been a non-narcotic prescription sent to your pharmacy. You may alternate this prescription with over the counter Ibuprofen. Your pain and discomfort should improve within a few days. When do I need to call the office? We ask that you reach out to the office if you experience a temperature of 100.4 ? F or higher, excessive urinary bleeding, symptoms of infection, inability to urinate or uncontrolled pain. If the office is closed, you may need to present to the local emergency department. Mares catheter If you have a catheter and will remove it at home, you may do so the next day if urine is clear and no longer red/pink in color. If urine is red, wait until clear to remove the catheter. See attached instructions for removal. Postop UroLift Instructions ? Complete your antibiotic as instructed. ? Remain on all your urinary medication until follow up. ? Take your pain madications and AZO as needed. ? Resume any blood thinners 48 hour post procedure. ? Continue to hydrate! ? Minimize your activity for 72-96 hours post procedure. ? If you are prescribed Oxybutynin for bladder spasms, you may take this medication every 8 hours as needed. This medication may cause dry mouth/eyes and constipation. Taking an over the counter stool softener and drinking plenty of water will help with side effects. Mares Catheter Removal Your healthcare provider has instructed you to remove your Mares catheter. This is a thin, flexible tube that allows urine to drain out of your bladder and into a bag. It is important to properly remove your catheter to prevent infection and other complications. If you have any questions about removing the Mares catheter, ask your healthcare provider before trying to remove it. Otherwise, follow the instructions on this sheet. Mares Catheter The Mares catheter is held in place by a small balloon that is filled with water. To remove the catheter, you must first drain the water from the balloon. This is done using a syringe and the balloon port. This is the opening in the catheter that is not attached to the bag. It allows you to get to the balloon. Instructions for Removing the Catheter Follow the directions closely. Note: If the catheter does not come out with gentle pulling, stop and call your healthcare provider right away. ? Empty the bag of urine if needed. ? Wash your hands with soap and warm water. Dry them well. ? Gather your supplies. This includes a syringe that was given to you by your healthcare provider, a wastebasket, and a towel. ? Put the syringe into the balloon port on the catheter. The syringe fits tightly into the port with a firm push and twist motion. ? Wait as the water from the balloon empties into the syringe. Depending on how large the balloon is, you may need to repeat this process several times until all of the water is out of the balloon. ? Once the balloon is emptied, gently pull out the catheter. ? Put the used catheter in the wastebasket. Throw away the syringe. ? Use the towel to wipe up any spilled water or urine if needed. ? Wash your hands again. When to Call Your Healthcare Provider Call the healthcare provider right away if: ? You have a fever of 100.4 ?F (38?C) or higher, or as directed by your healthcare provider. ? You have questions about removing the catheter. ? The catheter does not come out with gentle pulling. ? You cannot urinate within 8 hours of removing the catheter. ? Your belly (abdomen) is painful or bloated ? You have burning pain with urination that lasts for 24 hours. ? You see a lot of blood in your urine. Light bleeding for 24 hours is normal. ? It feels like the bladder is not empt (more content not included)... [facility] Hospital Discharge instructions 12-03-2023 Note Date [...] including vitamins, herbs, eye drops, creams, and kcgh-bsn-ljxmien medicines. Any problems you or family members [...] provider tells you to take them. Taking nlwz-rji-sxqlldb medicines, vitamins, herbs, and supplements. Tests You [...] Follow these instructions at home: Medicines Take eery-fgd-lkdkojn and prescription medicines only as told by [...] provider. Document Revised: 03/21/2022 Document Reviewed: 02/17/2021 [employer] Patient Education 2022 [employer]. 12/03/2023 15:48:35 Benign Prostatic Hyperplasia Benign Prostatic [...] urethra. Follow these instructions at home: Take yobb-wid-emyzxmb and prescription medicines only as told by [...] provider. Document Revised: 01/24/2022 Document Reviewed: 01/24/2022 [employer] Patient Education 2022 [employer]. Follow Up Care 11/25/2023 13:52:08 With:Elmer GÓMEZ, DEBRA Rondon, URO Address: When: Unknown [facility] [employer] Clinical Note 12-03-2023 Note Date & Type [...] including vitamins, herbs, eye drops, creams, and mihv-vvb-xachdgp medicines. ? Any problems you or family [...] tells you to take them. ? Taking ltfl-vuu-ramrzem medicines, vitamins, herbs, and supplements. Tests You [...] these instructions at home: Medicines ? Take rrsv-liu-ypzollj and prescription medicines only as told by [...] the department th (more content not included)... [facility] Evaluation + Plan note Note Date & Type Note Facility Evaluation + Plan note No data available for this section [facility] Evaluation + Plan note Note Date & Type Note Facility Evaluation + Plan note Future Appointments Appointment Date:04/01/2024 09:00:00 AM Scheduled Provider:Elmer GÓMEZ, Maura Torres Location:[facility] Appointment Type:URO Office Visit [facility] Evaluation note Note Date & Type Note Facility Evaluation note No assessment information [facility] Work Phone: Hospital Discharge instructions Note Date & Type Note Facility Hospital Discharge instructions No data available for this section [facility] [place] Progress note Note Date & Type Note Facility Progress note No data available for this section [facility] Summary Purpose Family History No Family History [...] DATE CREATED AUTHOR AUTHOR'S ORGANIZ ATION 04/23/2022 [facility] DATE CREATED AUTHOR AUTHOR'S ORGANIZ ATION 02/11/2024 [facility] DATE CREATED AUTHOR AUTHOR'S ORGANIZ ATION 02/12/2024 [facility] FOR RECORDS PERTAINING TO PATIENTS WHO ARE [...] BE BASED ON THE PRIMARY CLINICAL RECORDS. [employer] provides no warranty or guarantee of the accuracy or completeness of information in this document.
--- NOTE | 2024-03-05 07:46 | MR_ITS ---
The [address] [address] Patient Name: JUAN FRANCISCO CARMEN MRN: [id number] date: 1965 Sex: M Assigned Patient Location: MRI Current Patient Location: MRI Accession/Order Number: [id number] Exam Date: 03/05/2024 07:55 Report Date: 03/05/2024 10:52 At the request of: MARCI CURTIS Procedure: MR lumbar spine wo con MR lumbar spine wo con, 03/05/2024 7:55 AM EDT INDICATION: Lumbar Back Pain With Radiculopathy Affecting Left Lower Ext COMPARISON: Prior x-ray of the lumbar spine dated 12/04/2023 TECHNIQUE: Multiplanar, multisequential MRI images of lumbar spine were obtained without contrast. FINDINGS: For dictation purposes, the lowest complete disc space in the lumbar spine considered as L5-S1. There is loss of normal physiologic lumbar lordosis. The vertebral height is preserved. Possible nonobstructing nephrolithiasis in the superior pole of the right kidney. It measures approximately 4 mm. The conus medullaris is at the level of L1. No signal abnormality within the visualized spinal cord is noted. Level of T12-L1 is unremarkable. No neural foraminal narrowing or canal stenoses at the level of L1-L2 and L2-L3 is noted. At the level of L3-4, there are disc bulge with mild bilateral neuroforaminal narrowing and mild canal stenosis. At the level of L4-5, there are disc bulge with superimposed central protrusion and right lateral and neuroforaminal annular fissure with mild to moderate bilateral neuroforaminal narrowing and severe canal stenosis. There is focal epidural lipomatosis and ligamentum flavum thickening and facet joint arthrosis at this level. At the level of L5-S1, there are disc osteophyte complex with superimposed central protrusion with mild bilateral neuroforaminal narrowing and no canal stenosis. Right S1 nerve root is in close contact with the disc osteophyte complex in the lateral recess. The paraspinal muscles are unremarkable. MR/MR lumbar spine wo con IMPRESSION: Moderate degenerative changes of lumbar spine in particular at L4-L5 and L5-S1. Possible nonobstructing nephrolithiasis in the superior pole of the right kidney. An ultrasound may be helpful for further evaluation. Electronically authenticated by: ÁNGEL PATTON Date: 03/05/2024 10:52
== END 2024-03-05 07:38 | disposition home or self-care (01) ==
LOC: MRI 07:38
PROVIDERS: PCP Nurse Practitioner Family; Visit Provider Personal Emergency Response Attendant
DX: M54.16 Radiculopathy, lumbar region (principal); M51.36 Other intervertebral disc degeneration, lumbar region; N20.0 Calculus of kidney
CPT/HCPCS: 72148

== ENCOUNTER 2024-04-24 08:41 | Outpatient (OUT) | payer OTHER, SELFPAY ==
--- NOTE | 2024-04-24 | XR_ITS ---
The [address] [address] Patient Name: JUA NFRANCISCO CARMEN MRN: [id number] date: 1965 Sex: M Assigned Patient Location: Current Patient Location: Accession/Order Number: [id number] Exam Date: 04/24/2024 08:42 Report Date: 04/26/2024 06:38 At the request of: MEG DANIEL Procedure: XR lumbar spine min 4V EXAMINATION: XR lumbar spine min 4V HISTORY: LUMBAR SPINE PAIN COMPARISON: XR L-spine 12/04/2023 FINDINGS: BONES: Mild degenerative facet arthropathy L4-L5, L5-S1. No fracture, spondylolisthesis, or change in alignment during flexion and extension. DISC SPACES: Marked narrowing L5-S1 with complete loss of disc space. PARASPINOUS: Negative. No paraspinous abnormality is seen. OTHER: Negative. XR/XR lumbar spine min 4V IMPRESSION: 1. L5-S1 stable marked degenerative disc disease and mild degenerative facet arthropathy. 2. Normal height and alignment of vertebral bodies; no change in alignment during flexion and extension. Electronically authenticated by: BRITTANI BECK Date: 04/26/2024 06:38
--- OUTSIDE RECORDS SUMMARY | 2024-04-24 08:45 | XMS_ITS | CCD ---
Author Organization [facility] Care Team Providers Care Barrel Tester And Drainer Name Role Phone DO Elmo Clay Attending Provider [phone] MIGUEL ANGEL, DR SYED Admitting Unavailable HOUSE, [...] Care Unavailable BERTA HERRERA Primary Care Physician [phone] Maura Payne Attending Unavailable Maura Payne Attending Unavailable BERTA HERRERA Referring Unavailable ESTELA CHRIS Attending Unavailable Maura Payne Attending Unavailable Maura Payne Attending Unavailable Maura Payne Referring Unavailable Maura Payne Admitting Unavailable Maura Payne Attending Unavailable Maura Payne Referring Unavailable MARCI CURTIS Attending Unavailable MARCI CURTIS Attending Unavailable MARCI CURTIS Referring Unavailable MARCI CURTIS Referring Unavailable MICHAEL YIN Attending Unavailable MARCI CURTIS Referring Unavailable BRISSA BARRERA Attending Unavailable MARCI CURTIS Referring Unavailable BLAZE GARCIA Attending Unavailable MARCI CURTIS Referring Unavailable MICHAEL YIN Attending Unavailable MARCI CURTIS Referring Unavailable MARCI CURTIS Attending Unavailable MICHAEL YIN Attending Unavailable MARCI CURTIS Referring Unavailable MICHAEL YIN Attending Unavailable MARCI CURTIS Referring Unavailable MICHAEL YIN Attending Unavailable MARCI CURTIS Referring Unavailable MARCI CURTIS Attending Unavailable MARCI CURTIS Referring Unavailable MARCI CURTIS Referring Unavailable MARCI CURTIS Attending Unavailable JR. TRE, HUDSON Fisher Attending Unavaila anaya TOLEDO JR., HUDSON Fisher Attending Unavaila anaya Allergies Allergy Classification Reported Allergen(s) Allergy Type Date of Onset Reaction(s) Facility (1 source) No Known Medication Allergies; Translations: [No Known Medication Allergies] Propensity to adverse reactions (disorder) [facility] Repository Medications Current Medications Medication Drug Class(es) Dates Sig (Normalized) Sig (Original) acetaminophen 325 mg / HYDROcodone bitartrate 5 mg oral tablet (1 source) Opioid Agonist Start: 01-17-2024 [place] 325 mg-5 mg oral tablet 1 tab(s), Oral, q6hr, 10 tab(s), Refill(s) 0, Take 1 tablet 1 hour prior to the procedure. Then take as needed for pain., [facility] #[id number] Start Date: 01/17/24 Status: Ordered diazePAM 10 mg oral tablet (1 source) Benzodiazepine Start: 01-17-2024 Valium 10 mg Tab 10 mg = 1 tab(s), Oral, Once, PRN for anxiety, Take 1 hour prior to the procedure., # 1 tab(s), Refills(s) 0, Pharmacy: [facility] #[id number] Start Date: 01/17/24 Status: Ordered oxybutynin chloride 5 mg oral tablet (1 source) Cholinergic Muscarinic Antagonist Start: 02-10-2024 take 1 tablet by mouth three times daily as needed oxybutynin 5 mg Tab 5 mg = 1 tab(s), Oral, TID, PRN Urinary discomfort, # 60 tab(s), Refills(s) 0, Pharmacy: [facility] #[id number], 190, cm, 02/10/24 9:23:00 EDT, Height/Length Dosing, 119, kg, 02/10/24 9:23:00 EDT, Weight Dosing Start Date: 02/10/24 Status: Ordered Completed/Discontinued Medications Medication Drug Class(es) Dates Sig (Normalized) Sig (Original) allopurinol 100 mg oral tablet (4 sources) Xanthine Oxidase Inhibitor Start: 12-02-2023 allopurinol 100 mg Tab 135 EA, 0 Refill(s), take 1 AND 1/2 tablets by mouth once daily, Refills(s) 0 Start Date: 12/02/23 Status: Ordered amLODIPine 5 mg oral tablet (4 sources) Dihydropyridine Calcium Channel Jazmyne Start: 12-02-2023 amLODIPine 5 mg Tab 90 EA, 0 Refill(s), take 1 tablet by mouth once daily, Refills(s) 0 Start Date: 12/02/23 Status: Ordered lisinopril 20 mg oral tablet (4 sources) Angiotensin Converting Enzyme Inhibitor Start: 12-02-2023 lisinopril 20 mg Tab 90 EA, 0 Refill(s), take 1 tablet by mouth once daily, Refills(s) 0 Start Date: 12/02/23 Status: Ordered pravastatin sodium 40 mg oral tablet (4 sources) HMG-CoA Reductase Inhibitor Start: 12-02-2023 pravastatin [...] Ordered tamsulosin hydrochloride 0.4 mg oral capsule (4 sources) alpha-Adrenergic Jazmyne Start: 12-02-2023 tamsulosin 0.4 mg Cap 90 EA, 0 Refill(s), take 1 capsule by mouth once daily, Refills(s) 0 Start Date: 12/02/23 Status: Ordered Problems Problem Classification Problem Date Documented Date Episodic/Chronic Abdominal hernia (1 source) Umbilical hernia without obstruction or gangrene; Translations: [Umbilical hernia without obstruction or gangrene] Onset: 03-30-2022 Episodic Diabetes mellitus without complication (1 source) Type 2 diabetes mellitus 03-30-2024 Chronic Disorders of lipid metabolism (4 sources) Hyperlipidemia 12-02-2023 Chronic Essential hypertension (4 sources) Hypertensive disorder 12-02-2023 Chronic Genitourinary symptoms and ill-defined conditions (6 sources) Nocturia; Translations: [Dysuria] Onset: 01-17-2022 Episodic Gout and other crystal arthropathies (4 sources) Gout 12-02-2023 Chronic Hyperplasia of prostate (7 sources) Benign prostatic hypertrophy with outflow obstruction; Translations: [Benign prostatic hyperplasia with lower urinary tract symptoms] Onset: 12-03-2023 Chronic Other diseases of kidney and ureters (1 source) Urinary tract obstruction; Translations: [Other obstructive and reflux uropathy] Onset: 02-10-2024 Episodic Other male genital disorders (6 sources) Male erectile dysfunction, unspecified; Translations: [Erectile dysfunction] Onset: 12-03-2023 Chronic Other screening for suspected conditions (not mental disorders or infectious disease) (6 sources) Raised prostate specific antigen; Translations: [Elevated prostate specific antigen [PSA]] Onset: 12-03-2023 Episodic Unclassified (1 source) CONTACT W/AND (SUSP) EXPOS COVID-19; Translations: [CONTACT W/AND (SUSP) EXPOS COVID-19] Onset: 04-01-2022 Unclassified (4 sources) Measurement finding 12-03-2023 Results Test Name Value Interpretation Reference Range Facility Ambulatory Visit Summaryon 0 04-01-2024 Ambulatory Visit Summary Ambulatory Visit Summary JUAN FRANCISCO PHILLIPS :1965 Visit Date:04/01/2024 Ambulatory Visit Instructions Your Diagnosis BPH with urinary obstruction Feeling of incomplete bladder emptying Increased prostate specific antigen (PSA) velocity ED (erectile dysfunction) Your Care Team Attending Physician - Maura Payne MD Primary Care Physician - BERTA HERRERA CNP This Is Your Medications List Contact prescribing physician if questions or concerns allopurinol (allopurinol 100 mg Tab) amlodipine (amLODIPine 5 mg Tab) lisinopril (lisinopril 20 mg Tab) pravastatin (pravastatin 40 mg Tab) tamsulosin (tamsulosin 0.4 mg Cap) [Image Removed: STOP]Stop taking these medications diazepam (Valium 10 mg Tab) oxybutynin (oxybutynin 5 mg Tab) Procedures Performed Total knee arthroplasty (2022), Total knee arthroplasty (2021), Hernia, Hip replacement, Knee. Discharge Vitals Heart Rate (Peripheral) 78 Respiratory Rate 16 Blood Pressure 125/86 Weight 119 kg Weight 261.8 lb What to do next Scheduled Follow-Up Appointments Saturday 8:45 AM EST With: Maura Payne MD Where: [facility] [address] [place] [address] [place] [address]- You Need to Schedule the Following Appointments Follow Up with Maura Payne MD, URL, URO When: Comments: 2 mos w/ PVR Where: [address], [place] [address] [phone] Medications What When Instructions Unchanged allopurinol (allopurinol 100 mg Tab) 135 EA, 0 Refill(s), take 1 AND 1/ 2 tablets by mouth once daily Contact prescribing physician if questions or concerns Unchanged amlodipine (amLODIPine 5 mg Tab) 90 EA, 0 Refill(s), take 1 tablet by mouth once daily Contact prescribing physician if questions or concerns Unchanged lisinopril (lisinopril 20 mg Tab) 90 EA, 0 Refill(s), take 1 tablet by mouth once daily Contact prescribing physician if questions or concerns Unchanged pravastatin (pravastatin 40 mg Tab) 90 EA, 0 Refill(s), take 1 tablet by mouth once daily Contact prescribing physician if questions or concerns Unchanged tamsulosin (tamsulosin 0.4 mg Cap) 90 EA, 0 Refill(s), take 1 capsule by mouth once daily Contact prescribing physician if questions or concerns What How Much When Comments Stop Taking diazepam (Valium 10 mg Tab) 1 Tablets By Mouth Once as needed for for anxiety Take 1 hour prior to the procedure. Stop Taking oxybutynin (oxybutynin 5 mg Tab) 1 Tablets By Mouth 3 times a day as needed for Urinary discomfort Allergies No Known Medication Allergies Problems Ongoing - Any problem that you are currently receiving treatment for. BPH with urinary obstruction ED (erectile dysfunction) Gout Hyperlipidemia Hypertension Increased prostate specific antigen (PSA) velocity Type 2 diabetes mellitus Historical - Any problem that you are no longer receiving treatment for. Elevated PSA Patient Survey You may receive a survey via text or e-mail asking about your office visit. Please share your experience with us by completing your survey. We appreciate your feedback and thank you for choosing us for your care. Education Materials Benign Prostatic Hyperplasia Benign prostatic hyperplasia (BPH) [...] or symptoms? Symptoms of this condition include: ? Getting up often during the night to urinate. ? Needing to urinate frequently during the day. ? Difficulty starting urine flow. ? Decrease in size and strength of your urine stream. ? Leaking (dribbling) after urinating. ? Inability to pass urine. This needs immediate treatment. ? Inability to completely empty your bladder. ? Pain when you pass urine. This is more common if there is also an infection. ? Urinary tract infection (UTI). How is this diagnosed? This condition is diagnosed based on your medical h (more content not included)... Normal [facility] Urology Office/Clinic Noteon 04-01-2024 Urology Office/Clinic Note Urology Office/Clinic Note Chief Complaint 1 month follow up urolift with PVR HPI Staff 58 year old male patient presents today for a month followup PO urolift with PVR. S/P Urolift 02/10/24, cysto/TRUS 01/16/24. Previous Dx: BPH with urinary obstruction, increased PSA velocity, ED. IPSS: 12, ALKA: 23 PVR: 118 ml Dysuria: denies Incomplete bladder emptying: yes Hematuria: denies visible blood Frequency: denies Urgency: denies Nocturia: once a night Stream: denies hesitancy, has a steady stream, some stop and go Leaking: denies Post void dripping: denies Wearing pads/ Depends: denies Urge incontinence: denies Stress incontinence: denies Incontinence without Sensory Awareness: denies Abdominal pain: denies Flank pain: denies Sexual complaints: _ History of Present Illness Tests reviewed: reviewed UA, PVR I have reviewed the previous health record information and history for this patient from [facility]. I have reviewed and verified the staff HPI to be accurate for this encounter. Review of Systems PHQ Score Initial Depression Screen Score: 0 SCORE ROS - Provider Constitutional: denies weight loss, denies hot flashes. Eyes: denies eye problems. Gastrointestinal: denies nausea, denies vomiting. Cardiovascular: denies chest pain or angina. Integumentary: no dryness Musculoskeletal: denies musculoskeletal symptoms. ENMT: denies otolaryngeal symptoms. Respiratory: no shortness of breath. Heme/Lymph: denies easy bleeding tendency, denies easy bruising tendency. Psychiatric: no confusion, no anxiety. Genitourinary: See HPI. Physical Exam Vitals & Measurements HR: 78(Peripheral) RR: 16 BP: 125/86 WT: 119 kg WT: 261.8 lb General Appearance: alert, no distress, well nourished, well developed male. Assessment/Plan 58 yo male initially referred by Berta Herrera NP for frequency, here for f/u to UroLift. Hx of DM. Last A1C 11/22/23 - 6.1 06/22/23 BMP - BUN 23.0 Crea 0.92 eGFR >60 1. BPH with urinary obstruction (N40.1: Benign prostatic hyperplasia with lower urinary tract symptoms) S/p Cysto/TRUS 01/16/24 - Moderate bilobar prostatic hyperplasia wo intravesical median lobe. Mildly elevated bladder neck. 1+ trabeculations. Prostate volume 25 mL. S/p UroLift 02/10/24 (6 implants). IPSS 12 (17), QoL 1 (4). Taking Tamsulosin 0.4mg qd. UA today negative for blood and infection. Voiding every few hours. Nocturia improved significantly. Urgency, frequency improved. Shares he has held his urine up to 5 hours as he does not have as much as before. Only issue is feeling of incomplete emptying. Recommended timed voids to help with bladder contractions and stay on Tamsulosin until sxs improve more. -Cont Tamsulosin until PVR decreases, see #2 -Cont timed voids q3hrs -Timed voids 2. Feeling of incomplete bladder emptying (R39.14: Feeling of incomplete bladder emptying) PVR (cc): 12/03/23 - 14 04/01/24 - 118 Does not feel he is emptying as well. Denies any pain in scrotum/perineum. Advised pt this should improve over time as pt reaches max efficacy of Urolift procedure. Also shares he was still taking Oxybutynin as needed. Advised pt to stop this as this may also be contributing to incomplete emptying. -Cont Tamsulosin until PVR decreases -D/c Oxybutynin 3. Increased prostate specific antigen (PSA) velocity (R97.20: Elevated prostate specific antigen [PSA]) PSA: 05/06/23 - 1.66 11/22/23 - 2.22 No known family hx of prostate cancer. Cont routine PSA monitoring 4. ED (erectile dysfunction) (N52.9: Male erectile dysfunction, unspecified) ALKA 23 (21). Not bothersome enough to warrant tx at this time. Follow-up With When Contact Information Elmer GÓMEZ, Maura Torres, URL, URO [address], [place] [phone] Additional Instructions: 2 mos w/ PVR Patient Education Benign Prostatic Hyperplasia IRoberta, personally scribed for Dr. Payne on 04/01/2024 09:46:11. . Documentation recorded by the scribeRoberta, accurately reflects the services(s) I performed and decisions made by me. Authenticated by Dr. Payne on 04/01/2024 10:00:18. Problem List/Past Medical History Ongoing BPH with urinary obstruction ED (erectile dysfunction) Gout Hyperlipidemia Hypertension Increased prostate specific antigen (PSA) velocity Type 2 diabetes mellitus Historical Elevated PSA Procedure/Surgical History Total knee arthroplasty (2022), Total knee arthroplasty (2021), Hernia, Hip replacement, Knee. Medications allopurinol 100 mg Tab amLODIPine 5 mg Tab lisinopril 20 mg Tab pravastatin 40 mg Tab tamsulosin 0.4 mg Cap Allergies No Known Medication Allergies Social History Tobacco Never (less than 100 in lifetime) Tobacco Use:. Never Smokeless Tobacco Use:. Household tobacco concerns: No. Yes, 04/01/2024 Family History Diabetes: Mother, Father and Brother. Immunizations (more content not included)... Normal [facility] Comment on above: Result Comment: Elec tronically Signed By: Maura Payne MD\.br\Date and Time Signed: 04/01/24 10:00 EDT\.br\Electronically Co-Signed By: Roberta Frederick\.br\Date and Time Co-Signed: 04/01/24 09:46 EDT Inpatient Patient Summaryon 02-10-2024 Inpatient Patient Summary Inpatient Patient Summary [place] [id number] Clinical Summary Person Information Name: JUAN FRANCISCO PHILLIPS Age: 58 Years : 1965 Sex: Male PCP: BERTA HERRERA CNP Marital Status: Unknown Race: White Ethnicity: Non- or Language: Hungarian Visit Id: Visit Reason: BPH WITH URINARY OBSTRUCTION Speciality: Acuity: Enc Type: Outpatient Med Service: Surgery Arrival: 02/10/2024 08:51:44 Discharge: Dispo Type: Address: [address] [place] [phone] Provider Notes: Diagnosis: BPH with urinary obstruction; [...] This Visit Final Med List: acetaminophen-hydroco done ([place] 325 mg-5 mg oral tablet) 1 Tablets [...] up: With: Address: When: Maura Payne [address] [id number] [phone] Business (1) [facility] Kayden Chow [address] [place], [place] [address] [phone] Business (1) Comments: Office to schedule follow up in 1 month with PVR Patient Education Information: Lue - Urolift Post-Op Instructions (CUSTOM) [facility] Main OR Intraoperative Recor don 02-10-2024 Main OR Intraoperative Record Main OR Intraoperative Record IntraOp Document Type FTURO Summary Primary Physician: Maura Payne MD Finalized Date/Time: 02/10/24 10:18:57 Pt. Name: JUAN FRANCISCO PHILLIPS/Sex: 1965 Male Med Rec #: [id number] Physician: Maura Payne MD Financial #: [id number] Pt. Type: O Room/Bed: / Admit/Disch: 02/10/24 08:51:44 - Institution: Case Times FTURO Entry 1 Patient Times In Room 02/10/24 09:52:00 Out Room 02/10/24 10:17:00 Procedure Times Start 02/10/24 10:04:00 Stop 02/10/24 10:12:00 Anesthesia Times Last Modified By: Hien Dutta 02/10/24 10:18:30 Case Attendance FTURO Entry 1 Entry 2 Entry 3 Case Attendee Maura Payne MD, Kelsie E McClain CST, Kimberly A Role Performed Surgeon - Primary Temper Mill Operator - Primary Scrub - Primary Time In [...] Implant Implant Identification Description UROLIFT Lot Number [id number] Drop Wire Aliner UROLIFT Catalog ?# UL2-C Expiration Date 04/03/25 [...] Dutta 02/10/24 10:18 Hien Dutta 02/10/24 10:18 [facility] Main OR Preoperative Recordo n 02-10-2024 Main OR Preoperative Record Main OR Preoperative Record Holding Area Document Type FTURO Summary Primary Physician: Maura Payne MD Finalized Date/Time: 02/10/24 10:04:13 Pt. Name: JUAN FRANCISCO PHILLIPS Umair Cox/Sex: 1965 Male Med Rec #: [id number] Physician: Maura Payne MD Financial #: [id number] Pt. Type: O Room/Bed: / Admit/Disch: 02/10/24 [...] Complaints of Pain: No Skin Integrity Intact, [place], Warm, & Dry Vitals - EU Blood Pressure 147/88 Pulse 69 bpm Respirations 20 br/min SPO2 97 % Additional None RN Reviewed Yes Specimens Collected Last Modified By: Hien Dutta 02/10/24 09:56:57 Finalized By: Hien Dutta Document Signatures Signed By: Lona Banks LPN 02/10/24 09:22 Lona Banks LPN 02/10/24 09:22 Hien Dutta 02/10/24 10:04 Normal [facility] Operative Reporton Operative Report Operative Report Patient: [...] up in 1 month for PVR. Normal [facility] Comment on above: Result Comment: Elec tronically Signed By: Elmer GÓMEZ, Maura Torres\.harmeet\Date and Time Signed: 02/10/24 10:28 EDT Outpatient Surgery Discharge Instructionon 02-10-2024 Outpatient Surgery Discharge Instruction Outpatient Surgery Discharge Instruction [address] [address] Patient Discharge Instructions PERSON INFORMATION [...] Address: When: Maura Elmer [address], [place] [address] [phone] Business (1) [address], [address], [facility] [address] [place] [address] [phone] Business (1) Comments: Office to schedule follow up in 1 month with PVR Comment: PATIENT EDUCATION INFORMATION Instructions: [facility] [place], [place] Post-Operative Instructions for UroLift After your [...] twist motio (more content not included)... Normal [facility] Consent for Procedure/Surger yon 12-19-2023 Consent for Procedure/Surgery [id number]#1. 00TIFF Normal [facility] Physician Referralon 024 Physician Referral [id number]#1. 00TIFF Normal [facility] Screenson 12-04-2023 Screens [id number]# 1.00TIFF Normal [facility] Urology Office/Clinic Noteon 12-03-2023 Urology Office/Clinic Note [...] been obtained. Will order Local anesthesia. Ordered: 48433 Measure Post Void residual urine and/or bladder capacity by US- non-imaging Urnls Dip Stick Auto w/o Microscopy POC [id number] 2. Increased prostate specific antigen (PSA) velocity, [...] GÓMEZ at the time of cysto/TRUS. Ordered: [id number] Measure Post Void residual urine and/or bladder [...] Knee. Medicat (more content not included)... Normal [facility] Comment on above: Result Comment: Elec tronically Signed By: ESTELA CHRIS PA-C.br\Date and Time Signed: 12/03/23 16:04 EDT\.br\Electronically Co-Signed By: Linda Vela.br\Date and Time Co-Signed: 12/03/23 15:55 EDT Neal 03-30-2022 L - -------- Specimen: [id number] Received: 03/30/22 Status: TISHA Kimble Num: [id number] Spec Type: Surgical Subm Dr: Elmo Clay DO Tissues: A Hernia Sac (HERNIA SAC) Procedures: HE Stain, Gross/Micro L2 -------- Age/ Patient Sex Location Account Attending Physician -------- Juan Francisco Phillips/[place] [id number] Elmo Clay DO -------- SPEC NUM: [id number] RECD: 03/30/22 STATUS: TISHA YOONJustin NUM: [id number] CINDY: 03/30/22- [facility] DR: Elmo Clay DO ENTERED: 03/30/[address] [facility] [address]: Marquis Villalobos [facility] SPEC TYPE: Surgical DEPT: S ORDERED: HE Stain, Gross/Micro L2 ORDERED: HE Stain, Gross/Micro L2 Pathological Diagnosis Hernia sac, resection: Clinical Information Umbilical hernia Gross Description Received in formalin labeled with the patient's name, number and hernia sac is a 5.0 x 3.8 x 1.8 cm aggregate of yellow, lobular, focally hyperemic fat with a yellow, lobular cut surface.. News Reel Cameraman sections are submitted in one cassette labeled A1. Microscopic Description One glass slide with H E stained material has been examined. The microscopic findings support the above pathologic diagnosis. CPT Codes 79495 -------- -------- Specimen: [id number] Received: 03/30/22 Status: TISHA Kimble Num: [id number] Spec Type: Surgical Subm Dr: Elmo Clay DO Tissues: A Hernia Sac (HERNIA SAC) Procedures: HE Stain, Gross/Micro L2 -------- Patient: JacquelineJuan Francisco [id number] (Continued) -------- Signed (signature on file) Tamika Rodriguez MD 04/02/22 1054 [facility] Covid-19 PCR (CVDTB)on SARS-CoV-2 (COVID-19) RNA GEORGIE+probe Ql (Unsp spec) Not detected Normal NOT DETECTED [facility] Comment on above: Result Comment: This test is not yet approved or cleared by the [place] FDA. When there are no FDA-approved or cleared tests available, and other criteria are met, FDA can make tests available under an emergency access mechanism called an Emergency Use Authorization (EUA). The EUA for this test is supported by the Telemarketing Supervisor of Health and Human Service's (HHS's) declaration [...] SARS-CoV-2. Performed By: #### C VDTB #### [facility] [address] [place] [address] Dr. Renny Patel CBC AUTO DIFFon 01-17-2022 BASO # 0.0 103/ul Normal 0.0-0.1 [facility] Comment on above: Performed By: #### C BC #### [facility] [address] [place] [address] Dr. Renny Patel Basophils/100 WBC (Bld) 0.2 % Normal 0.2-2.0 [facility] Comment on above: Performed By: #### C BC #### [facility] [address] [place] [address] Dr. Renny Patle EO # 0.0 103/ul Normal 0.0-0.7 [facility] Comment on above: Performed By: #### C BC #### [facility] [address] [place] [address] Dr. Renny Patel Eosinophils/100 WBC (Bld) 0.2 % Critically low 0.9-7.0 [facility] Comment on above: Performed By: #### C BC #### [facility] [address] [place] [address] Dr. Renny Patel Erythrocyte distribution width (RBC) [Ratio] 12.8 % Normal 11.0-15.0 [facility] Comment on above: Performed By: #### C BC #### [facility] [address] [place] [address] Dr. Renny Patel Hematocrit (Bld) [Volume fraction] 45.1 % Normal 42.0-54.0 [facility] Comment on above: Performed By: #### C BC #### [facility] [address] [place] [address] Dr. Renny Patel Hemoglobin (Bld) [Mass/Vol] 14.7 g/dL Normal 14.0-18.0 [facility] Comment on above: Performed By: #### C BC #### [facility] [address] [place] [address] Dr. Renny Patel IG # 0.03 10e3/ul Normal 0.00-0.03 [facility] Comment on above: Performed By: #### C BC #### [facility] [address] [place] [address] Dr. Renny Patel IG % 0.4 % Normal 0.0-0.5 [facility] Comment on above: Performed By: #### C BC #### [facility] [address] [place] [address] Dr. Renny Patel LYMPH # 1.9 103/ul Normal 1.2-3.8 [facility] Comment on above: Performed By: #### C BC #### [facility] [address] [place] [address] Dr. Renny Patel Lymphocytes/100 WBC (Bld) 22.8 % Normal 20.5-60.0 [facility] Comment on above: Performed By: #### C BC #### [facility] [address] [place] [address] Dr. Renny Patel MANUAL DIFF REQ NO Normal [facility] Comment on above: Performed By: #### C BC #### [facility] [address] [place] [address] Dr. Renny Patel MCH (RBC) [Entitic mass] 29.1 pg Normal 25.9-34.0 [facility] Comment on above: Performed By: #### C BC #### [facility] [address] [place] [address] Dr. Renny Patel MCHC (RBC) [Mass/Vol] 32.6 g/dL Normal 29.9-35.2 [facility] Comment on above: Performed By: #### C BC #### [facility] [address] [place] [address] Dr. Renny Patel MCV (RBC) [Entitic vol] 89.1 fL Normal 80.0-94.0 [facility] Comment on above: Performed By: #### C BC #### [facility] [address] [place] [address] Dr. Renny Patel MONO # 0.7 103/ul Normal 0.3-0.8 [facility] Comment on above: Performed By: #### C BC #### [facility] [address] [place] [address] Dr. Renny Patel Monocytes/100 WBC (Bld) 8.4 % Normal 1.7-12.0 [facility] Comment on above: Performed By: #### C BC #### [facility] [address] [place] [address] Dr. Rneny Patel NEUT # 5.8 103/ul Normal 1.4-6.5 [facility] Comment on above: Performed By: #### C BC #### [facility] [address] [place] [address] Dr. Renny Patel Neutrophils/100 WBC (Bld) 68.0 % Normal 43.0-75.0 [facility] Comment on above: Performed By: #### C BC #### [facility] [address] [place] [address] Dr. Renny Patel Platelet mean volume (Bld) [Entitic vol] 9.4 fL Critically low 9.5-13.5 [facility] Comment on above: Performed By: #### C BC #### [facility] [address] [place] [address] Dr. Renny Patel PLT 247 103/ul Normal 150-450 [facility] Comment on above: Performed By: #### C BC #### [facility] [address] [address] [address] Renny Patel RBC 5.06 106/ul Normal 4.70-6.10 [facility] Comment on above: Performed By: #### C BC #### [facility] [address] [address] [address] Renny Patel WBC 8.5 103/ul Normal 4.0-11.0 [facility] Comment on above: Performed By: #### C BC #### [facility] [address] [place] [address] Dr. Renny Patel PROF 14(COMP METB)on 022 Albumin [Mass/Vol] 3.8 g/dL Normal 3.4-5.0 [facility] Comment on above: Performed By: #### U KEVIN, CMP #### [facility] [address] [place] [address] Dr. Renny Patel Albumin/Globulin [Mass ratio] 1.0 {ratio} Normal [facility] Comment on above: Performed By: #### U KEVIN, CMP #### [facility] [address] [place] [address] Dr. Renny Patel ALP [Catalytic activity/Vol] 54 U/L Normal 46-116 [facility] Comment on above: Performed By: #### U KEVIN, CMP #### [facility] [address] [place] [address] Dr. Renny Patel ALT [Catalytic activity/Vol] 60 U/L Normal 16-63 [facility] Comment on above: Performed By: #### U KEVIN, CMP #### [facility] [address] [place] [address] Dr. Renny Patel Anion gap [Moles/Vol] 8.7 mmol/L Normal [facility] Comment on above: Performed By: #### U KEVIN, CMP #### [facility] [address] [place] [address] Dr. Renny Patel AST [Catalytic activity/Vol] 22 U/L Normal 15-37 [facility] Comment on above: Performed By: #### U KEVIN, CMP #### [facility] [address] [place] [address] Dr. Renny Patel Bilirubin [Mass/Vol] 0.8 mg/dL Normal 0.2-1.0 [facility] Comment on above: Performed By: #### U KEVIN, CMP #### [facility] [address] [place] [address] Dr. Renny Patel Calcium [Mass/Vol] 9.4 mg/dL Normal 8.5-10.1 [facility] Comment on above: Performed By: #### U KEVIN, CMP #### [facility] [address] [place] [address] Dr. Renny Patel Chloride [Moles/Vol] 104 mmol/L Normal 98-107 [facility] Comment on above: Performed By: #### U KEVIN, CMP #### [facility] [address] [place] [address] Dr. Renny Patel CO2 [Moles/Vol] 27.6 mmol/L Normal 21.0-32.0 [facility] Comment on above: Performed By: #### U KEVIN, CMP #### [facility] [address] [place] [address] Dr. Renny Patel Creatinine [Mass/Vol] 0.99 mg/dL Normal 0.70-1.30 [facility] Comment on above: Performed By: #### U KEVIN, CMP #### [facility] [address] [place] [address] Dr. Renny Patel EGFR-AF CZECH >60 Normal >=60 [facility] Comment on above: Performed By: #### U KEVIN, CMP #### [facility] [address] [place] [address] Dr. Renny Patel EGFR-NON AF CZECH >60 Normal >=60 [facility] Comment on above: Performed By: #### U KEVIN, CMP #### [facility] [address] [address] [address] Renny Patel Globulin (S) [Mass/Vol] 3.9 g/dL Normal [facility] Comment on above: Performed By: #### U KEVIN, CMP #### [facility] [address] [address] [address] Renny Patel Glucose [Mass/Vol] 123 mg/dL Critically high 74-106 [facility] Comment on above: Performed By: #### U KEVIN, CMP #### [facility] [address] [place] [address] Dr. Renny Patel Potassium [Moles/Vol] 4.3 mmol/L Normal 3.5-5.1 [facility] Comment on above: Performed By: #### U KEVIN, CMP #### [facility] [address] [place] [address] Dr. Renny Patel Protein [Mass/Vol] 7.7 g/dL Normal 6.4-8.2 [facility] Comment on above: Performed By: #### U KEVIN, CMP #### [facility] [address] [place] [address] Dr. Renny Patel Sodium [Moles/Vol] 136 mmol/L Normal 136-145 [facility] Comment on above: Performed By: #### U KEVIN, CMP #### [facility] [address] [place] [address] Dr. Renny Patel Urea nitrogen [Mass/Vol] 15.0 mg/dL Normal 7.0-18.0 [facility] Comment on above: Performed By: #### U KEVIN, CMP #### [facility] [address] [place] [address] Dr. Renny Patel Urea nitrogen/Creatinine [Mass ratio] 15.2 mg/mg Normal [facility] Comment on above: Performed By: #### U KEVIN, CMP #### [facility] [address] [place] [address] Dr. Renny Patel URIC ACID SERUMon 01-17-2022 Urate [Mass/Vol] 4.9 mg/dL Normal 3.5-7.2 [facility] Comment on above: Performed By: #### U KEVIN, CMP #### [facility] [address] [address] [address] Renny Patel Vital Signs Date Time Vital Sign Value Performing Clinician Faci lity 04-01-2024 09:11-0400 Blood Pressure Location Maura Lue [facility] 04-01-2024 09:11-0400 Diastolic blood pressure 86 mm[Hg] Maura Lue [facility] 04-01-2024 09:11-0400 Heart rate 78 /min Maura Lue [facility] 04-01-2024 09:11-0400 Respiratory rate 16 /min Maura Lue [facility] 04-01-2024 09:11-0400 Systolic blood pressure 125 mm[Hg] Maura Lue [facility] 12-03-2023 15:28-0400 Diastolic blood pressure 88 mm[Hg] ESTELA ARIES [facility] 12-03-2023 15:28-0400 Mean blood pressure 108 mm[Hg] ESTELA ARIES [facility] 12-03-2023 15:28-0400 Systolic blood pressure 147 mm[Hg] ESTELA ARIES [facility] 12-03-2023 15:16-0400 Blood Pressure Location ESTELA ARIES [facility] 12-03-2023 15:16-0400 Diastolic blood pressure 83 mm[Hg] ESTELA CHRIS [facility] 12-03-2023 15:16-0400 Heart rate 87 /min ESTELA CHRIS [facility] 12-03-2023 15:16-0400 Systolic blood pressure 147 mm[Hg] ESTELA CHRIS [facility] Encounters Encounter Date Encounter Type Care Provider Facility Start: 06-10-2024 ambulatory Maura M. Lue Facility:[facility] [place] Start: 04-15-2024 End: 04-15-2024 ambulatory HUDSON VALE Not Available Start: 04-01-2024 End: 04-01-2024 ambulatory Maura M. Shavonnee Facility:[facility] [place] Start: 04-01-2024 End: 04-01-2024 Patient encounter procedure Maura M. Lue [facility] Start: 03-11-2024 End: 03-11-2024 ambulatory HUDSON VALE Not Available Start: 02-10-2024 End: 02-10-2024 ambulatory Maura M. Lue Facility:[facility] Start: 02-10-2024 End: 02-10-2024 Patient encounter procedure Maura M. Lue [facility] Start: 02-04-2024 End: 02-04-2024 ambulatory MARCI CURTIS Not Available Start: 01-30-2024 End: 01-30-2024 ambulatory MICHAEL YIN Not Available Start: 01-20-2024 End: 01-20-2024 ambulatory MICHAEL YIN Not Available Start: 01-15-2024 End: 01-16-2024 ambulatory Maura M. Lue Facility::[id number] Start: 01-08-2024 End: 01-08-2024 ambulatory MARCI CURTIS Not Available Start: 01-07-2024 End: 01-07-2024 ambulatory MICHAEL YIN Not Available Start: 12-24-2023 End: 12-24-2023 ambulatory BLAZE GARCIA Not Available Start: 12-18-2023 End: 12-18-2023 ambulatory BRISSA BARRERA Not Available Start: 12-11-2023 End: 12-11-2023 ambulatory Maura Payne Facility:[facility] Start: 12-11-2023 End: 12-11-2023 Off-Site Maura Payne [facility] Start: 12-10-2023 End: 12-10-2023 ambulatory MICHAEL YIN Not Available Start: 12-04-2023 End: 12-04-2023 ambulatory MARCI CURTIS Not Available Start: 12-03-2023 End: 12-03-2023 ambulatory BERTA HERRERA Facility:[facility] Start: 12-03-2023 End: 12-03-2023 Patient encounter procedure ESTELA CHRIS [facility] Start: 11-25-2023 ambulatory Maura Payne Facility:[facility] Start: 07-29-2023 End: 07-29-2023 ambulatory MARCI CURTIS Not Available Start: 07-01-2023 End: 07-01-2023 ambulatory MARCI CURTIS Not Available Start: 04-01-2022 Encounter for preprocedural laboratory examination DR ELMO CLAY [facility] Start: 03-30-2022 End: 03-30-2022 ambulatory Elmo Clay Facility:[facility] Start: 03-30-2022 End: 03-30-2022 Departed Referred DO Elmo Clay Work Phone: [facility] [place] Start: 03-28-2022 End: 03-29-[address] ELMO CLAY Facility:[facility] Start: 03-28-2022 End: 03-29-2022 Encounter for preprocedural laboratory examination DR ELMO CLAY Facility:[facility] Start: 03-02-[address] KIARA JARQUIN Fac ility:[facility] Start: 02-28-2022 Encounter for preprocedural cardiovascular examination DR ELMO CLAY [facility] Start: 02-27-2022 End: 02-28-2022 Encounter for preprocedural cardiovascular examination DR ELMO CLAY Facility:[facility] Start: 02-27-2022 End: 02-28-[address] ELMO CLAY Facility:[facility] Start: 01-17-2022 End: 01-18-[address] KUNAL MICHELLE Facility:[facility] Procedures Date Procedure Procedure Detail Performing Clinician Start: 07-22-2022 Total knee replacement ESTELA ARIES Start: 01-17-[address] SORAYA MICHELLE Comment on above: Performed By: #### P SAD #### [facility] [address] [place] [address] Dr. Renny Patel Start: 07-22-2021 Total knee replacement ESTELAJARETH SHARPRY Herniated structure (morphologic abnormality) ESTELA CHRIS Insertion of hip prosthesis ESTELAJARETH SHARPRY Knee region structur e (body structure) ESTELA CHRIS Immunizations Immunization Date Immunization Notes Care Provider Fa [facility] 05-09-2023 influenza virus vaccine, unspecified formulation ESTELA ARIES [facility] 05-09-2023 tetanus toxoid, redu daphne diphtheria toxoid, and acellular pertussis vaccine, adsorbed ESTELA ARIES [facility] 10-25-2020 SARS-CoV-2 (COVID-19 ) mRNA BNT-162b2 vax ESTELA CHRIS [facility] 10-04-2020 SARS-CoV-2 (COVID-19 ) mRNA BNT-162b2 vax ESTELA CHRIS [facility] 06-03-2018 influenza virus vaccine, unspecified formulation ESTELA CHRIS [facility] Payers Date Payer Category Payer Unknown [id number] 2022 Self-pay 1965 Unknown [id number] 2.16.84 0.1.433149.3.579.2.593 1965 Unknown [id number] 2.16.84 0.1.882332.3.579.2.593 1963 Unknown [id number] 2.16.84 0.1.236718.3.579.2.593 1963 Unknown [id number] 2.16.84 0.1.085771.3.579.2.593 1963 Unknown [id number] 2.16.84 0.1.924814.3.579.2.593 1963 Unknown [id number] 2.16.8 40.1.166702.3.579.2.727 1963 Unknown [id number] 2.16.8 40.1.632032.3.579.2.727 1963 Unknown [id number] 2.16.8 40.1.883103.3.579.2.727 1963 Unknown [id number] 2.16.8 40.1.614713.3.579.2.727 1963 Unknown [id number] 2.16.8 40.1.309458.3.579.2.727 1963 Unknown [id number] 2.16.84 0.1.506879.3.579.2.1259 1963 Unknown [id number] 2.16.84 0.1.951215.3.579.2.1258 1963 Unknown [id number] 2.16.84 0.1.101796.3.579.2.1258 1963 Unknown [id number] 2.16.84 0.1.724654.3.579.2.1258 1963 Unknown [id number] 2.16.84 0.1.933720.3.579.2.1258 1963 Unknown [id number] 2.16.84 0.1.857934.3.579.2.1258 1963 Unknown [id number] 2.16.84 0.1.136696.3.579.2.1258 1963 Unknown [id number] 2.16.84 0.1.730179.3.579.2.1258 1963 Unknown [id number] 2.16.84 0.1.557806.3.579.2.1258 1963 Unknown [id number] 2.16.84 0.1.809127.3.579.2.1258 1963 Unknown [id number] 2.16.84 0.1.662890.3.579.2.1258 1963 Unknown [id number] 2.16.84 0.1.937969.3.579.2.1258 1963 Unknown [id number] 2.16.84 0.1.084817.3.579.2.1258 1963 Unknown [id number] 2.16.84 0.1.634051.3.579.2.1258 1963 Unknown [id number] 2.16.84 0.1.120767.3.579.2.1258 1963 Unknown [id number] 2.16.840 .1.100486.3.579.2.1258 1963 Unknown [id number] 2.16.840 .1.734459.3.579.2.1258 1963 Unknown [id number] 2.16.840 .1.094905.3.579.2.1259 1959 Unknown [id number] Unknown [id number] 2.16.8 40.1.770319.3.579.2.531 Social History Date Type Detail [facility] Work Phone: Start: 1965 Sex Assigned At Male [facility] Start: 12-03-2023 End: 04-01-2024 Tobacco smoking status Never smoked tobacco (finding) [facility] Tobacco smoking status Never [facility] Sex Assigned At Male [facility] Functional Status Date Assessment Result Facility 04-01-2024 Functional Status N/A [facility] 02-10-2024 Functional Status N/A [facility] 12-03-2023 Functional Status N/A [facility] Clinical Notes 12-03-2023 to 04-01-2024 Note Date & Type Note Facility 04-01-2024 Hospital Discharge instructions Patient Education 04/01/2024 09:45:05 Benign Prostatic Hyperplasia Benign Prostatic Hyperplasia Benign [...] urethra. Follow these instructions at home: Take aczx-uly-pmyurxu and prescription medicines only as told by [...] provider. Document Revised: 01/24/2022 Document Reviewed: 01/24/2022 [employer] Patient Education 2023 [employer]. Follow Up Care 02/10/2024 10:22:17 With:Elmer GÓMEZ, Maura Torres URL, URO Address: [address], [place] [phone] When: Unknown Comments:2 mos w/ PVR [facility] 04-01-2024 Note Patient Education Urology Benign Prostatic Hyperplasia Benign prostatic hyperplasia (BPH) [...] or symptoms? Symptoms of this condition include: ? Getting up often during the night to urinate. ? Needing to urinate frequently during the day. ? Difficulty starting urine flow. ? Decrease in size and strength of your urine stream. ? Leaking (dribbling) after urinating. ? Inability to pass urine. This needs immediate treatment. ? Inability to completely empty your bladder. ? Pain when you pass urine. This is more common if there is also an infection. ? Urinary tract infection (UTI). How is this diagnosed? This condition is diagnosed based on your medical history, a physical exam, and your symptoms. Tests will also be done, such as: ? A post-void bladder scan. This measures any amount of urine that may remain in your bladder after you finish urinating. ? A digital rectal exam. In a rectal exam, your health care provider checks your prostate by putting a lubricated, gloved finger into your rectum to feel the back of your prostate gland. This exam detects the size of your gland and any abnormal lumps or growths. ? An exam of your urine (urinalysis). ? A prostate specific antigen (PSA) screening. This is a blood test used to screen for prostate cancer. ? An ultrasound. This test uses sound waves [...] severity of your condition. Treatment may include: ? Observation and yearly exams. This may be the only treatment needed if your condition and symptoms are mild. ? Medicines to relieve your symptoms, including: ? Medicines to shrink the prostate. ? Medicines to relax the muscle of the prostate. ? Surgery in severe cases. Surgery may include: ? Prostatectomy. In this procedure, the prostate tissue is removed completely through an open incision or with a laparoscope or robotics. ? Transurethral resection of the prostate (TURP). In this procedure, a tool is inserted through the opening at the tip of the penis (urethra). It is used to cut away tissue of the inner core of the prostate. The pieces are removed through the same opening of the penis. This removes the blockage. ? Transurethral incision (TUIP). In this procedure, small cuts are made in the prostate. This lessens the prostate's pressure on the urethra. ? Transurethral microwave thermotherapy (TUMT). This procedure uses microwaves to create heat. The heat destroys and removes a small amount of prostate tissue. ? Transurethral needle ablation (TUNA). This procedure uses radio frequencies to destroy and remove a small amount of prostate tissue. ? Interstitial laser coagulation (ILC). This procedure uses a laser to destroy and remove a small amount of prostate tissue. ? Transurethral electrovaporization (TUVP). This procedure uses electrodes to destroy and remove a small amount of prostate tissue. ? Prostatic urethral lift. This procedure inserts an implant to push the lobes of the prostate away from the urethra. Follow these instructions at home: ? Take lyxo-imb-kcdhaqg and prescription medicines only as told by your health care provider. ? Monitor your symptoms for any changes. Contact your health care provider with any changes. ? Avoid drinking large amounts of liquid before going to bed or out in public. ? Avoid or reduce how much caffeine or alcohol you drink. ? Give yourself time when you urinate. ? Keep all follow-up visits. This is important. Contact a health care provider if: ? You have unexplained back pain. ? Your symptoms do not get better with treatment. ? You develop side effec (more content not included)... [facility] 02-10-2024 Hospital Discharge instructions Patient Education 02/10/2024 10:18:20 Lue - Urolift Post-Op Instructions (CUSTOM) [facility] [place], [place] Post-Operative Instructions for UroLift After your [...] Up Care 01/17/2024 10:32:06 With:Maura Payne Address: [address] [place] [address]- [phone] Business (1) [facility] [address] [phone] Business (1) When: Unknown Comments:Office to schedule follow up in 1 month with PVR [facility] 02-10-2024 Note Patient Education [facility] [place], [place] Post-Operative Instructions for UroLift After your [...] is not empt (more content not included)... [facility] 12-03-2023 Hospital Discharge instructions Patient Education 12/03/2023 [...] including vitamins, herbs, eye drops, creams, and kzbd-qer-jkfyqwr medicines. Any problems you or family members [...] provider tells you to take them. Taking oakg-uhw-qyriand medicines, vitamins, herbs, and supplements. Tests You [...] Follow these instructions at home: Medicines Take vyas-kta-ixczews and prescription medicines only as told by [...] provider. Document Revised: 03/21/2022 Document Reviewed: 02/17/2021 [employer] Patient Education 2022 [employer]. 12/03/2023 15:48:35 Benign Prostatic Hyperplasia Benign Prostatic [...] urethra. Follow these instructions at home: Take jldt-nqx-gwzkrkj and prescription medicines only as told by [...] provider. Document Revised: 01/24/2022 Document Reviewed: 01/24/2022 [employer] Patient Education 2022 [employer]. Follow Up Care 11/25/2023 13:52:08 With:Elmer GÓMEZ, DEBRA Rondon, [facility] Address: When: Unknown [facility] [employer] 12-03-2023 Note Urology Cystoscopy Cystoscopy is a [...] including vitamins, herbs, eye drops, creams, and ojux-iiu-awadaxs medicines. ? Any problems you or family [...] tells you to take them. ? Taking vuqp-uta-sgxnaar medicines, vitamins, herbs, and supplements. Tests You [...] these instructions at home: Medicines ? Take iwmg-lhq-pydivmq and prescription medicines only as told by [...] the department th (more content not included)... [facility] Evaluation + Plan note No data available for this section [facility] Evaluation + Plan note Future Appointments Appointment Date:04/01/2024 09:00:00 AM Scheduled Provider:Maura Payne MD Location:[facility] Appointment Type:URO Office Visit [facility] Evaluation + Plan note Future Appointments Appointment Date:06/10/2024 08:45:00 AM Scheduled Provider:Maura Payne MD Location:[facility] Appointment Type:URO Office Visit [facility] Evaluation note No assessment inform ation available [facility] Work Phone: Hospital Discharge instructions No data available for this section [facility] Progress note No data available for this section [facility] Summary Purpose Family History No [...] content) DATE CREATED AUTHOR 04/01/2022 [facility] DATE CREATED AUTHOR AUTHOR'S ORGANIZ ATION 04/23/2022 [facility] DATE CREATED AUTHOR AUTHOR'S ORGANIZ ATION 04/02/2024 [facility] DATE CREATED AUTHOR AUTHOR'S ORGANIZ ATION 04/17/2024 [facility] EPIC FOR RECORDS PERTAINING [...] BE BASED ON THE PRIMARY CLINICAL RECORDS. [facility] [place] [facility]. provides no warranty or guarantee of the accuracy or completeness of information in this document.
== END 2024-04-24 08:42 | disposition home or self-care (01) ==
LOC: EC 08:41
PROVIDERS: PCP Nurse Practitioner Family; Visit Provider Orthopaedic Surgery Orthopaedic Surgery of the Spine
DX: M54.59 Other low back pain (principal); M51.369 Other intervertebral disc degeneration, lumbar region without mention of lumbar back pain or lower extremity pain
CPT/HCPCS: 72110

== ENCOUNTER 2024-05-12 08:51 | Outpatient (OUT) | payer OTHER, SELFPAY ==
--- OUTSIDE RECORDS SUMMARY | 2024-05-12 09:13 | XMS_ITS | CCD ---
Author Organization [facility] Care Team Providers Care Dance Hall Hostess Name Role Phone DO Elmo Clay Attending Provider MIGUEL ANGEL, DR SYED Admitting Unavailable HOUSE, DR SYED Attending Unavailable HOUSE, DR SYED Consulting Unavailable HOUSE, DR SYED Primary Care Unavailable MILKA, DR KIARA Block Admitting Unavailable WIECEAllyson, DR KIARA Block Attending Unavailable WIECEK, DR KIARA Block Admitting Unavailable WIECEK, DR KIARA Block Attending Unavailable DANE, DR ELMO Fisher Admitting Unavailable DANE, DR ELMO Fisher Attending Unavailable DANE, DR ELMO Fisher Consulting Unavailable DANE, DR ELMO Fisher Admitting Unavailable BERTRAMFAPooja, DR ELMO Fisher Attending Unavailable DANE, DR ELMO Fisher Consulting Unavailable Dane, Elmo Attending Unavailable Dane, Elmo Admitting Unavailable NO FAMILY, PHYSICIAN Primary Care Unavailable BERTA HERRERA Primary Care Physician MARCI CURTIS Attending Unavailable KIRSTEN, MARCI Gray Attending Unavailable MARCI CURTIS Referring Unavailable MARCI CURTIS Referring Unavailable ANNAMARIA, MICHAEL T Attending Unavailable MARCI CURTIS Referring Unavailable BRISSA BARRERA Attending Unavailable MARCI CURTIS Referring Unavailable BLAZE GARCIA Attending Unavailable MARCI CURTIS Referring Unavailable BLACKSTON, MICHAEL T Attending Unavailable MARCI CURTIS Referring Unavailable CURTISMARCI Attending Unavailable BLACKSTERRELL, MICHAEL T Attending Unavailable MARCI CURTIS Referring Unavailable BLACKSTON, MICHAEL T Attending Unavailable MARCI CURTIS Referring Unavailable BLACKSTERRELL, MICHAEL T Attending Unavailable MARCI CURTIS Referring Unavailable MARCI CURTIS Attending Unavailable MARCI CURTIS Referring Unavailable MARCI CURTIS Referring Unavailable MARCI CURTIS Attending Unavailable JR. TRE, HUDSON Fisher Attending Unavailly TOLEDO JR., GEORGE C Attending Unavaila Thelma Lauren Attending Unavailable Maura Payne Attending Unavailable BERTA HERRERA Referring Unavailable ESTELA CHRIS Attending Unavailable Maura Payne Attending Unavailable Maura Payne Attending Unavailable Maura Payne Referring Unavailable Maura Payne Admitting Maura Estrella Attending Maura Estrella Referring Unavailable Maura Payne Attending Unavailable Allergies Allergy Classification Reported Allergen(s) Allergy Type Date of Onset Reaction(s) Facility (1 source) No Known Medication Allergies; Translations: [No Known Medication Allergies] Propensity to adverse reactions (disorder) [facility] Repository Medications Current Medications Medication Drug Class(es) Dates Sig (Normalized) Sig (Original) acetaminophen 325 mg / HYDROcodone bitartrate 5 mg oral tablet (1 source) Opioid Agonist Start: 01-17-2024 Accord 325 mg-5 mg oral tablet 1 tab(s), Oral, q6hr, 10 tab(s), Refill(s) 0, Take 1 tablet 1 hour prior to the procedure. Then take as needed for pain., [id number] Start Date: 01/17/24 Status: Ordered diazePAM 10 mg oral tablet (1 source) Benzodiazepine Start: 01-17-2024 Valium 10 mg Tab 10 mg = 1 tab(s), Oral, Once, PRN for anxiety, Take 1 hour prior to the procedure., # 1 tab(s), Refills(s) 0, Pharmacy: [facility] #[id number] Start Date: 01/17/24 Status: Ordered oxybutynin chloride 5 mg oral tablet (1 source) Cholinergic Muscarinic Antagonist Start: 02-10-2024 take 1 tablet by mouth three times daily as needed oxybutynin 5 mg Tab 5 mg = 1 tab(s), Oral, TID, PRN Urinary discomfort, # 60 tab(s), Refills(s) 0, Pharmacy: [facility] #[id number], 190, cm, 02/10/24 9:23:00 EDT, Height/Length Dosing, [...] Maura Payne MD Where: [facility] [address] [place] [address] [place] [address]- You Need to Schedule the Following Appointments Follow Up with Elmer GÓMEZ, Maura Torres, URL, URO When: Comments: 2 mos w/ PVR Where: [address], [place] [address]- [phone] Medications What When Instructions Unchanged allopurinol (allopurinol [...] medical h (more content not included)... Normal [facility] Urology Office/Clinic Noteon 04-01-2024 Urology Office/Clinic Note [...] Elmer GÓMEZ, Maura Torres, URL, URO [address], [place] [address] [phone] Additional Instructions: 2 mos w/ PVR Patient [...] Brother. Immunizations (more content not included)... Normal [facility] Comment on above: Result Comment: Elec tronically Signed By: Maura Payne MD\.br\Date and Time Signed: 04/01/24 10:00 EDT\.br\Electronically Co-Signed By: Roberta Frederick\.br\Date and Time Co-Signed: 04/01/24 09:46 EDT Inpatient Patient Summaryon 02-10-2024 Inpatient Patient Summary Inpatient Patient Summary [place] [id number] Clinical Summary Person Information Name: JUAN FRANCISCO PHILLIPS Age: 58 Years : 1965 Sex: Male PCP: BERTA HERRERA CNP Marital Status: Unknown Race: White Ethnicity: Non- or Language: Mohawk Visit Id: Visit Reason: BPH WITH URINARY OBSTRUCTION Speciality: Acuity: Enc Type: Outpatient Med Service: Surgery Arrival: 02/10/2024 08:51:44 Discharge: Dispo Type: Address: [address] [place] [address] [phone] Provider Notes: Diagnosis: BPH with urinary obstruction; [...] This Visit Final Med List: acetaminophen-hydroco done (Accord 325 mg-5 mg oral tablet) 1 Tablets [...] Address: When: Maura Payne [address], [place] [phone] Business (1) [address] [place] [id number] [phone] Business (1) Comments: Office to schedule follow up in 1 month with PVR Patient Education Information: Lue - Urolift Post-Op Instructions (CUSTOM) [facility] Main OR Intraoperative Recor don 02-10-2024 Main OR Intraoperative Record Main OR Intraoperative Record IntraOp Document Type FTURO Summary Primary Physician: Maura Payne MD Finalized Date/Time: 02/10/24 10:18:57 Pt. Name: JUAN FRANCISCO PHILLIPS/Sex: 1965 Male Med Rec #: [id number] Physician: Maura Payne MD Financial #: [id number] Pt. Type: O Room/Bed: / Admit/Disch: 02/10/24 [...] Kimberly A Role Performed Surgeon - Primary Kiln Stoker - Primary Scrub - Primary Time In [...] LOCAL UROLIFT Primary Procedure Yes Primary Surgeon Elmer GÓMEZ, Maura Torres Start 02/10/24 10:04:00 Stop 02/10/24 10:12:00 Anesthesia [...] Implant Implant Identification Description UROLIFT Lot Number [id number] Public Works Director UROLIFT Catalog ?# UL2-C Expiration Date 04/03/25 [...] Dutta 02/10/24 10:18 Hien Dutta 02/10/24 10:18 [facility] Main OR Preoperative Recordo n 02-10-2024 Main OR Preoperative Record Main OR Preoperative Record Holding Area Document Type FTURO Summary Primary Physician: Maura Payne MD Finalized Date/Time: 02/10/24 10:04:13 Pt. Name: JUAN FRANCISCO PHILLIPS Umair Reed./Sex: 1965 Male Med Rec #: [id number] Physician: Maura Payne MD Financial #: [id number] Pt. Type: O Room/Bed: / Admit/Disch: 02/10/24 [...] Complaints of Pain: No Skin Integrity Intact, [place], Warm, & Dry Vitals - EU Blood Pressure 147/88 Pulse 69 bpm Respirations 20 br/min SPO2 97 % Additional None RN Reviewed Yes Specimens Collected Last Modified By: Hien Dutta 02/10/24 09:56:57 Finalized By: Hien Dutta Document Signatures Signed By: Lona Banks LPN 02/10/24 09:22 Lona Banks LPN 02/10/24 09:22 Hien Dutta 02/10/24 10:04 Normal [facility] Operative Reporton Operative Report Operative Report [...] up in 1 month for PVR. Normal [facility] Comment on above: Result Comment: Elec tronically Signed By: Elmer GÓMEZ, Maura Torres\.br\Date and Time Signed: 02/10/24 10:28 EDT Outpatient Surgery Discharge Instructionon 02-10-2024 Outpatient Surgery Discharge Instruction Outpatient Surgery Discharge Instruction [place] [id number] Patient Discharge Instructions PERSON INFORMATION Name: JUAN [...] 911 Follow up: With: Address: When: Maura Payne [address] [place] [phone] Business (1) [address], [address], [facility] [address] [place] [address] [phone] Business (1) Comments: Office to schedule follow up in 1 month with PVR Comment: PATIENT EDUCATION INFORMATION Instructions: [facility] [place], [place] Post-Operative Instructions for UroLift After your [...] twist motio (more content not included)... Normal [facility] Consent for Procedure/Surger yon 12-19-2023 Consent for Procedure/Surgery [id number]#1. 00TIFF Normal [facility] Physician Referralon 024 Physician Referral [id number]#1. 00TIFF Normal [facility] Screenson 12-04-2023 Screens [id number]# 1.00TIFF Normal [facility] Urology Office/Clinic Noteon 12-03-2023 Urology [...] been obtained. Will order Local anesthesia. Ordered: 62460 Measure Post Void residual urine and/or bladder capacity by US- non-imaging Urnls Dip Stick Auto w/o Microscopy POC 20081 2. Increased prostate specific antigen (PSA) velocity, [...] GÓMEZ at the time of cysto/TRUS. Ordered: 03119 Measure Post Void residual urine and/or bladder [...] Knee. Medicat (more content not included)... Normal [facility] Comment on above: Result Comment: Elec tronically Signed By: ESTELA CHRIS PA-C.br\Date and Time Signed: 12/03/23 16:04 EDT\.br\Electronically Co-Signed By: Linda Vela.br\Date and Time Co-Signed: 12/03/23 15:55 EDT Neal 03-30-2022 L - -------- Specimen: [id number] Received: 03/30/22 Status: TISHA Kimble Num: [id number] Spec Type: Surgical Subm Dr: Elmo Clay DO Tissues: A Hernia Sac (HERNIA SAC) Procedures: HE Stain, Gross/Micro L2 -------- Age/ Patient Sex Location Account Attending Physician -------- Juan Francisco Phillips/[facility] [id number] Elmo Clay DO -------- SPEC NUM: [id number] RECD: 03/30/22 STATUS: TISHA KIMBLE NUM: [id number] CINDY: 03/30/22- [facility] DR: Elmo Clay DO ENTERED: 03/30/22 [facility] DR: Marquis Villalobos [facility] SPEC TYPE: Surgical DEPT: S ORDERED: HE Stain, Gross/Micro L2 ORDERED: HE Stain, Gross/Micro L2 Pathological Diagnosis Hernia sac, resection: Clinical Information Umbilical hernia Gross Description Received in formalin labeled with the patient's name, number and hernia sac is a 5.0 x 3.8 x 1.8 cm aggregate of yellow, lobular, focally hyperemic fat with a yellow, lobular cut surface.. Boat Laborer sections are submitted in one cassette labeled A1. Microscopic Description One glass slide with H E stained material has been examined. The microscopic findings support the above pathologic diagnosis. CPT Codes 11315 -------- -------- Specimen: [id number] Received: 03/30/22 Status: TISHA Kimble Num: [id number] Spec Type: Surgical Subm Dr: Elmo Clay DO Tissues: A Hernia Sac (HERNIA SAC) Procedures: HE Stain, Gross/Micro L2 -------- Patient: RoycearoldoJuan Francisco [id number] (Continued) -------- Signed (signature on file) Tamika Rodriguez MD 04/02/22 1054 [facility] Covid-19 PCR (CVDTB)on SARS-CoV-2 (COVID-19) RNA GEORGIE+probe Ql (Unsp spec) Not detected Normal NOT DETECTED [facility] Comment on above: Result Comment: This test is not yet approved or cleared by the [place] FDA. When there are no FDA-approved or cleared tests available, and other criteria are met, FDA can make tests available under an emergency access mechanism called an Emergency Use Authorization (EUA). The EUA for this test is supported by the Air Route Traffic Controller of Health and Human Service's (HHS's) declaration [...] By: #### C VDTB #### [facility] [address] [place] [address] Dr. Renny Patel CBC AUTO DIFFon 01-17-2022 BASO # 0.0 103/ul Normal 0.0-0.1 [facility] Comment on above: Performed By: #### C BC #### [facility] [address] [place] [address] Dr. Renny Patel Basophils/100 WBC (Bld) 0.2 % Normal 0.2-2.0 [facility] Comment on above: Performed By: #### C BC #### [facility] [address] [place] [address] Dr. Renny Patel EO # 0.0 103/ul Normal 0.0-0.7 [facility] Comment on above: Performed By: #### C BC #### [facility] [address] [place] [address] Dr. Renny Patel Eosinophils/100 WBC (Bld) 0.2 % Critically low 0.9-7.0 [facility] Comment on above: Performed By: #### C BC #### [facility] [address] [place] [address] Dr. Renny Patel Erythrocyte distribution width (RBC) [Ratio] 12.8 % Normal 11.0-15.0 [facility] Comment on above: Performed By: #### C BC #### [facility] [address] [place] [address] Dr. Renny Patel Hematocrit (Bld) [Volume fraction] 45.1 % Normal 42.0-54.0 [facility] Comment on above: Performed By: #### C BC #### [facility] [address] [place] [address] Dr. Renny Patel Hemoglobin (Bld) [Mass/Vol] 14.7 g/dL Normal 14.0-18.0 [facility] Comment on above: Performed By: #### C BC #### [facility] [address] [place] [address] Dr. Renny Patel IG # 0.03 10e3/ul Normal 0.00-0.03 [facility] Comment on above: Performed By: #### C BC #### [facility] [address] [place] [address] Dr. Renny Patel IG % 0.4 % Normal 0.0-0.5 [facility] Comment on above: Performed By: #### C BC #### [facility] [address] [place] [address] Dr. Renny Patel LYMPH # 1.9 103/ul Normal 1.2-3.8 [facility] Comment on above: Performed By: #### C BC #### [facility] [address] [place] [address] Dr. Renny Patel Lymphocytes/100 WBC (Bld) 22.8 % Normal 20.5-60.0 [facility] Comment on above: Performed By: #### C BC #### [facility] [address] [place] [address] Dr. Renny Patel MANUAL DIFF REQ NO Normal [facility] Comment on above: Performed By: #### C BC #### [facility] [address] [place] [address] Dr. Renny Patel MCH (RBC) [Entitic mass] 29.1 pg Normal 25.9-34.0 [facility] Comment on above: Performed By: #### C BC #### [facility] [address] [place] [address] Dr. Renny Patel MCHC (RBC) [Mass/Vol] 32.6 g/dL Normal 29.9-35.2 [facility] Comment on above: Performed By: #### C BC #### [facility] [address] [place] [address] Dr. Renny Patel MCV (RBC) [Entitic vol] 89.1 fL Normal 80.0-94.0 [facility] Comment on above: Performed By: #### C BC #### [facility] [address] [place] [address] Dr. Renny Patel MONO # 0.7 103/ul Normal 0.3-0.8 [facility] Comment on above: Performed By: #### C BC #### [facility] [address] [place] [address] Dr. Renny Patel Monocytes/100 WBC (Bld) 8.4 % Normal 1.7-12.0 [facility] Comment on above: Performed By: #### C BC #### [facility] [address] [place] [address] Dr. Renny Patel NEUT # 5.8 103/ul Normal 1.4-6.5 [facility] Comment on above: Performed By: #### C BC #### [facility] [address] [place] [address] Dr. Renny Patel Neutrophils/100 WBC (Bld) 68.0 % Normal 43.0-75.0 [facility] Comment on above: Performed By: #### C BC #### [facility] [address] [place] [address] [address] Renny Patel Platelet mean volume (Bld) [Entitic vol] 9.4 fL Critically low 9.5-13.5 [facility] Comment on above: Performed By: #### C BC #### [facility] [address] [place] [address] [address] Renny Patel PLT 247 103/ul Normal 150-450 [facility] Comment on above: Performed By: #### C BC #### [facility] [address] [place] [address] [address] Renny Patel RBC 5.06 106/ul Normal 4.70-6.10 [facility] Comment on above: Performed By: #### C BC #### [facility] [address] [place] [address] Dr. Renny Patel WBC 8.5 103/ul Normal 4.0-11.0 [facility] Comment on above: Performed By: #### C BC #### [facility] [address] [place] [address] [address] Renny Patel PROF 14(COMP METB)on 022 Albumin [Mass/Vol] 3.8 g/dL Normal 3.4-5.0 [facility] Comment on above: Performed By: #### U KEVIN, CMP #### [facility] [address] [place] [address] Dr. Renny Patel Albumin/Globulin [Mass ratio] 1.0 {ratio} Normal [facility] Comment on above: Performed By: #### U KEVIN, CMP #### [facility] [address] [place] [address] Dr. Renny Patel ALP [Catalytic activity/Vol] 54 U/L Normal 46-116 [facility] Comment on above: Performed By: #### U KEVIN, CMP #### [facility] [address] [place] [address] Dr. Renny Patel ALT [Catalytic activity/Vol] 60 U/L Normal 16-63 [facility] Comment on above: Performed By: #### U KEVIN, CMP #### [facility] [address] [place] [address] [address] Renny Patel Anion gap [Moles/Vol] 8.7 mmol/L Normal [facility] Comment on above: Performed By: #### U KEVIN, CMP #### [facility] [address] [place] [address] Dr. Renny Patel AST [Catalytic activity/Vol] 22 U/L Normal 15-37 [facility] Comment on above: Performed By: #### U KEVIN, CMP #### [facility] [address] [place] [address] Dr. Renny Patel Bilirubin [Mass/Vol] 0.8 mg/dL Normal 0.2-1.0 [facility] Comment on above: Performed By: #### U KEVIN, CMP #### [facility] [address] [place] [address] Dr. Renny Patel Calcium [Mass/Vol] 9.4 mg/dL Normal 8.5-10.1 [facility] Comment on above: Performed By: #### U KEVIN, CMP #### [facility] [address] [place] [address] Dr. Renny Patel Chloride [Moles/Vol] 104 mmol/L Normal 98-107 [facility] Comment on above: Performed By: #### U KEVIN, CMP #### [facility] [address] [place] [address] Dr. Renny Patel CO2 [Moles/Vol] 27.6 mmol/L Normal 21.0-32.0 [facility] Comment on above: Performed By: #### U KEVIN, CMP #### [facility] [address] [place] [address] Dr. Renny Patel Creatinine [Mass/Vol] 0.99 mg/dL Normal 0.70-1.30 [facility] Comment on above: Performed By: #### U KEVIN, CMP #### [facility] [address] [place] [address] Dr. Renny Patel EGFR-AF BURMESE >60 Normal >=60 [facility] Comment on above: Performed By: #### U KEVIN, CMP #### [facility] [address] [place] [address] Dr. Renny Patel EGFR-NON AF BURMESE >60 Normal >=60 [facility] Comment on above: Performed By: #### U KEVIN, CMP #### [facility] [address] [place] [address] [address] Renny Patel Globulin (S) [Mass/Vol] 3.9 g/dL Normal [facility] Comment on above: Performed By: #### U KEVIN, CMP #### [facility] [address] [place] [address] [address] Renny Patel Glucose [Mass/Vol] 123 mg/dL Critically high 74-106 [facility] Comment on above: Performed By: #### U KEVIN, CMP #### [facility] [address] [place] [address] [address] Renny Patel Potassium [Moles/Vol] 4.3 mmol/L Normal 3.5-5.1 [facility] Comment on above: Performed By: #### U KEVIN, CMP #### [facility] [address] [place] [address] [address] Renny Patel Protein [Mass/Vol] 7.7 g/dL Normal 6.4-8.2 [facility] Comment on above: Performed By: #### U KEVIN, CMP #### [facility] [address] [place] [address] Dr. Renny Patel Sodium [Moles/Vol] 136 mmol/L Normal 136-145 [facility] Comment on above: Performed By: #### U KEVIN, CMP #### [facility] [address] [place] [address] [address] Renny Patel Urea nitrogen [Mass/Vol] 15.0 mg/dL Normal 7.0-18.0 [facility] Comment on above: Performed By: #### U KEVIN, CMP #### [facility] [address] [place] [address] [address] Renny Patel Urea nitrogen/Creatinine [Mass ratio] 15.2 mg/mg Normal [facility] Comment on above: Performed By: #### U KEVIN, CMP #### [facility] [address] [place] [address] Dr. Renny Patel URIC ACID SERUMon 01-17-2022 Urate [Mass/Vol] 4.9 mg/dL Normal 3.5-7.2 [facility] Comment on above: Performed By: #### U KEVIN, CMP #### [facility] [address] [place] [address] [address] Renny Paetl Vital Signs Date Time Vital Sign Value Performing Clinician Faci lity 04-01-2024 09:11-0400 Blood Pressure Location Maura Lue [facility] 04-01-2024 09:11-0400 Diastolic blood pressure 86 mm[Hg] Maura Lue [facility] 04-01-2024 09:11-0400 Heart rate 78 /min Maura Lue [facility] 04-01-2024 09:11-0400 Respiratory rate 16 /min Maura Lue [facility] 04-01-2024 09:11-0400 Systolic blood pressure 125 mm[Hg] Maura Lue [facility] 12-03-2023 15:28-0400 Diastolic blood pressure 88 mm[Hg] ESTELA ARIES [facility] 12-03-2023 15:28-0400 Mean blood pressure 108 mm[Hg] ESTELA ARIES [facility] 12-03-2023 15:28-0400 Systolic blood pressure 147 mm[Hg] ESTELA ARIES [facility] 12-03-2023 15:16-0400 Blood Pressure Location ESTELA ARIES [facility] 12-03-2023 15:16-0400 Diastolic blood pressure 83 mm[Hg] ESTELA CHRIS [facility] 12-03-2023 15:16-0400 Heart rate 87 /min ESTELA CHRIS [facility] 12-03-2023 15:16-0400 Systolic blood pressure 147 mm[Hg] ESTELA CHRIS [facility] Encounters Encounter Date Encounter Type Care Provider Facility Start: 06-10-2024 ambulatory Maura M. Shavonnee Facility:[facility] Start: 05-12-2024 ambulatory Thelma Chanda Fermínkylee Pringle y:[facility] [place] Start: 04-15-2024 End: 04-15-2024 ambulatory HUDSON VALE Not Available Start: 04-01-2024 End: 04-01-2024 ambulatory Maura MJennifer Marvine Facility[facility] Start: 04-01-2024 End: 04-01-2024 Patient encounter procedure Maura MJennifer Marvine [facility] Start: 03-11-2024 End: 03-11-2024 ambulatory HUDSON VALE Not Available Start: 02-10-2024 End: 02-10-2024 ambulatory Maura M. Lue Facility:[facility] Start: 02-10-2024 End: 02-10-2024 Patient encounter procedure Maura M. Shavonnee [facility] Start: 02-04-2024 End: 02-04-2024 ambulatory MARCI CURTIS Not Available Start: 01-30-2024 End: 01-30-2024 ambulatory MICHAEL YIN Not Available Start: 01-20-2024 End: 01-20-2024 ambulatory MICHAEL YIN Not Available Start: 01-15-2024 End: 01-16-2024 ambulatory MICHAEL YIN Not Available Start: 01-08-2024 End: 01-08-2024 ambulatory MARCI CURTIS Not Available Start: 01-07-2024 End: 01-07-2024 ambulatory MICHAEL YIN Not Available Start: 12-24-2023 End: 12-24-2023 ambulatory BLAZE GARCIA Not Available Start: 12-18-2023 End: 12-18-2023 ambulatory BRISSA BARRERA Not Available Start: 12-11-2023 End: 12-11-2023 ambulatory Maura Payne Facility:[facility] Start: 12-11-2023 End: 12-11-2023 Off-Site Maura Payne [facility] Start: 12-10-2023 End: 12-10-2023 ambulatory MICHAEL YIN Not Available Start: 12-04-2023 End: 12-04-2023 ambulatory MARCI CURTIS Not Available Start: 12-03-2023 End: 12-03-2023 ambulatory BERTA Anne SANTASHARON Facility[facility] Start: 12-03-2023 End: 12-03-2023 Patient encounter procedure ESTELA CHRIS [facility] Start: 11-25-2023 ambulatory Thelma Rosas Facility: [facility] Start: 07-29-2023 End: 07-29-2023 ambulatory MARCI CURTIS Not Available Start: 07-01-2023 End: 07-01-2023 ambulatory MARCI CURTIS Not Available Start: 04-01-2022 Encounter for preprocedural laboratory examination DR ELMO CLAY [facility] Start: 03-30-2022 End: 03-30-2022 ambulatory Elmo Clay Facility:[facility] Start: 03-30-2022 End: 03-30-2022 Departed Referred DO Elmo Clay Work Phone: [facility] [place] Start: 03-28-2022 End: 03-29-[address] ELMO CLAY Facility:[facility] Start: 03-28-2022 End: 03-29-2022 Encounter for preprocedural laboratory examination DR ELMO CLAY Facility:[facility] Start: 03-02-[address] KIARA JARQUIN Fac ility:[facility] Start: 02-28-2022 Encounter for preprocedural cardiovascular examination DR ELMO CLAY [facility] Start: 02-27-2022 End: 02-28-2022 Encounter for preprocedural cardiovascular examination DR ELMO CLAY Facility:[facility] Start: 02-27-2022 End: 02-28-[address] ELMO CLAY Facility:[facility] Start: 01-17-2022 End: 01-18-[address] KUNAL MICHELLE Facility:[facility] Procedures Date Procedure Procedure Detail Performing Clinician Start: 07-22-2022 Total knee replacement ESTELA CHRIS Start: 01-17-[address] SORAYA MICHELLE Comment on above: Performed By: #### P SAD #### [facility] [address] [place] [address] Dr. Renny Patel Start: 07-22-2021 Total knee replacement ESTELA ARIES Herniated structure (morphologic abnormality) ESTELA ARIES Insertion of hip prosthesis ESTELA ARIES Knee region structur e (body structure) ESTELA ARIES Immunizations Immunization Date Immunization Notes Care Provider Fa [facility] 05-09-2023 influenza virus vaccine, unspecified formulation ESTELA CHRIS [facility] 05-09-2023 tetanus toxoid, redu daphne diphtheria toxoid, and acellular pertussis vaccine, adsorbed ESTELAALEXA CHRIS [facility] 10-25-2020 SARS-CoV-2 (COVID-19 ) mRNA BNT-162b2 vax ESTELA CHRIS [facility] 10-04-2020 SARS-CoV-2 (COVID-19 ) mRNA BNT-162b2 vax ESTELA CHRIS [facility] 06-03-2018 influenza virus vaccine, unspecified formulation ESTELA CHRIS [facility] Payers Date Payer Category Payer Unknown [id number] 2022 Self-pay 1965 Unknown [id number] 2.16.84 0.1.575747.3.579.2.593 1965 Unknown [id number] 2.16.84 0.1.205381.3.579.2.593 1965 Unknown [id number] 2.16.84 0.1.061518.3.579.2.593 1965 Unknown [id number] 2.16.84 0.1.357087.3.579.2.593 1965 Unknown [id number] 2.16.84 0.1.152373.3.579.2.593 1965 Unknown [id number] 2.16.84 0.1.518647.3.579.2.1259 1965 Unknown [id number] 2.16.84 0.1.594239.3.579.2.1259 1963 Unknown [id number] 2.16.84 0.1.044767.3.579.2.1259 1963 Unknown [id number] 2.16.84 0.1.854899.3.579.2.1259 1963 Unknown [id number] 2.16.84 0.1.699044.3.579.2.1259 1963 Unknown [id number] 2.16.84 0.1.150247.3.579.2.1259 1963 Unknown [id number] 2.16.84 0.1.599624.3.579.2.1258 1963 Unknown [id number] 2.16.84 0.1.983601.3.579.2.9 1965 Unknown [id number] 2.16.84 0.1.505142.3.579.2.1258 1963 Unknown [id number] 2.16.84 0.1.985621.3.579.2.1258 1963 Unknown [id number] 2.16.84 0.1.724047.3.579.2.1258 1963 Unknown [id number] 2.16.84 0.1.741565.3.579.2.1258 1963 Unknown [id number] 2.16.84 0.1.337505.3.579.2.1258 1963 Unknown [id number] 2.16.84 0.1.255636.3.579.2.9 1965 Unknown [id number] 2.16.84 0.1.219703.3.579.2.1258 1963 Unknown [id number] 2.16.840 .1.394695.3.579.2.1258 1965 Unknown [id number] 2.16.840 .1.275344.3.579.2.1258 1963 Unknown [id number] 2.16.840 .1.815644.3.579.2.125 1963 Unknown [id number] 2.16.8 40.1.145134.3.579.2.727 1965 Unknown [id number] 2.16.8 40.1.847322.3.579.2.727 1963 Unknown [id number] 2.16.8 40.1.082346.3.579.2.727 1963 Unknown [id number] 2.16.8 40.1.167318.3.579.2.727 1963 Unknown [id number] 2.16.8 40.1.495986.3.579.2.727 1965 Unknown [id number] 2.16.8 40.1.673971.3.579.2.727 1959 Unknown [id number] Unknown [id number] 2.16.8 40.1.265349.3.579.2.531 Social History Date Type Detail Facility Tobacco smoking stat [facility] Unknown if ever smoked [facility] Work Phone: Start: 1965 Sex Assigned At Male [facility] Start: 12-03-2023 End: 04-01-2024 Tobacco smoking status Never smoked tobacco (finding) [facility] Tobacco smoking status Never [facility] Sex Assigned At Male [facility] Functional Status Date Assessment Result Facility 04-01-2024 Functional Status N/A [facility] 02-10-2024 Functional Status N/A [facility] 12-03-2023 Functional Status N/A [facility] Clinical Notes 12-03-2023 to 04-01-2024 Note [...] urethra. Follow these instructions at home: Take hfws-cop-lscykmn and prescription medicines only as told by [...] provider. Document Revised: 01/24/2022 Document Reviewed: 01/24/2022 [employer] Patient Education 2023 IKO System. Follow Up Care 02/10/2024 10:22:17 With:Elmer GÓMEZ, DEBRA Rondon, URO Address: [address] [place] [phone] When: Unknown Comments:2 mos w/ PVR [facility] 04-01-2024 Note Patient Education Urology Benign Prostatic [...] Follow these instructions at home: ? Take sktm-oyd-mpdmcfn and prescription medicines only as told by [...] develop side effec (more content not included)... [facility] 02-10-2024 Hospital Discharge instructions Patient Education 02/10/2024 10:18:20 Lue - Urolift Post-Op Instructions (CUSTOM) [facility] [place], [place] Post-Operative Instructions for UroLift After your [...] Up Care 01/17/2024 10:32:06 With:Maura Payne Address: [address] [place] [phone] Business (1) [facility] Lino Garcia [address] [address] [phone] Business (1) When: Unknown Comments:Office to schedule follow up in 1 month with PVR [facility] 02-10-2024 Note Patient Education [facility] [place], [place] Post-Operative Instructions for UroLift After your [...] is not empt (more content not included)... [facility] 12-03-2023 Hospital Discharge instructions Patient Education 12/03/2023 [...] including vitamins, herbs, eye drops, creams, and mmvh-ttm-pvcfeyh medicines. Any problems you or family members [...] provider tells you to take them. Taking gagr-now-syiuypq medicines, vitamins, herbs, and supplements. Tests You [...] Follow these instructions at home: Medicines Take fcym-yad-glbctzg and prescription medicines only as told by [...] provider. Document Revised: 03/21/2022 Document Reviewed: 02/17/2021 [employer] Patient Education 2022 IKO System. 12/03/2023 15:48:35 Benign Prostatic Hyperplasia Benign Prostatic [...] urethra. Follow these instructions at home: Take dyuj-btm-tkrwxiw and prescription medicines only as told by [...] provider. Document Revised: 01/24/2022 Document Reviewed: 01/24/2022 [employer] Patient Education 2022 IKO System. Follow Up Care 11/25/2023 13:52:08 With:Elmer GÓMEZ, Maura M., URL, URO Address: When: Unknown [facility] Jonathan 12-03-2023 Note Urology Cystoscopy Cystoscopy is a [...] including vitamins, herbs, eye drops, creams, and qpbj-amw-aqthbbi medicines. ? Any problems you or family [...] tells you to take them. ? Taking sxke-jjd-mmujogy medicines, vitamins, herbs, and supplements. Tests You [...] these instructions at home: Medicines ? Take jmze-cfd-qgnqbyv and prescription medicines only as told by [...] the department th (more content not included)... [facility] Evaluation + Plan note No data available for this section [facility] Evaluation + Plan note Future Appointments Appointment Date:04/01/2024 09:00:00 AM Scheduled Provider:Maura Payne MD Location:[facility] Appointment Type:URO Office Visit [facility] Evaluation + Plan note Future Appointments Appointment Date:06/10/2024 08:45:00 AM Scheduled Provider:Maura Payne MD Location:[facility] Appointment Type:URO Office Visit [facility] Evaluation note No assessment inform ation available [facility] Work Phone: Hospital Discharge instructions No data available for this section [facility] Progress note No data available for this section [facility] Summary Purpose Family History No Family History [...] DATE CREATED AUTHOR AUTHOR'S ORGANIZ ATION 04/23/[address] [facility] DATE CREATED AUTHOR AUTHOR'S ORGANIZ ATION 04/17/2024 [facility] DATE CREATED AUTHOR AUTHOR'S ORGANIZ ATION 05/06/[address] [facility] FOR RECORDS PERTAINING TO PATIENTS WHO ARE [...] ON THE PRIMARY CLINICAL RECORDS. [facility] [employer] provides no warranty or guarantee of the accuracy or completeness of information in this document.
[2024-05-12 09:25] LABS: Estimated Average Glucose 126 mg/dL
[2024-05-12 10:22] LABS: Alanine Aminotransferase 64 U/L (16-63); Albumin Globulin Ratio 1.2; Albumin Level 3.7 g/dL (3.4-5.0); Alkaline Phosphatase 70 U/L (46-116); Aspartate Amino Transferase 33 U/L (15-37); BUN Creatinine Ratio 10.8; Bilirubin Total 0.6 mg/dL (0.2-1.0); Calcium 9.2 mg/dL (8.5-10.1); Carbon Dioxide 29.5 mmol/L (21.0-32.0); Chloride 105 mmol/L (98-107); Estimated GFR (African America >60 (>=60 mL/min/1.73m^2); Estimated GFR (Non-African Ame >60 (>=60 mL/min/1.73m^2); Globulin 3.2 g/dL; Glucose 142 mg/dL (74-106); Potassium 4.5 mmol/L (3.5-5.1); Sodium 142 mmol/L (136-145); Total Protein 6.9 g/dL (6.4-8.2)
[2024-05-13 08:14] LABS: Insulin 18.1 uIU/mL (2.6-24.9)
== END 2024-05-12 08:52 | disposition home or self-care (01) ==
LOC: LAB 08:53
PROVIDERS: PCP Nurse Practitioner Family; Visit Provider Nurse Practitioner Family
DX: R73.09 Other abnormal glucose (principal)
CPT/HCPCS: 36415; 80053; 83036; 83525

== ENCOUNTER 2024-08-28 08:40 | Outpatient (OUT) | payer OTHER, SELFPAY ==
--- NOTE | 2024-08-28 | XR_ITS ---
The [address] [address] Patient Name: JUAN FRANCISCO CARMEN MRN: [id number] date: 1965 Sex: M Assigned Patient Location: Current Patient Location: Accession/Order Number: [id number] Exam Date: 08/28/2024 08:51 Report Date: 08/31/2024 08:14 At the request of: MEG DANIEL Procedure: XR lumbar spine 2-3V EXAMINATION: XR lumbar spine 2-3V HISTORY: LUMBAR SPINE PAIN COMPARISON: No relevant comparison available. FINDINGS: BONES: Normal alignment with no acute fracture or spondylolisthesis. Posterior decompression and transpedicular fusion L4-S1 with no mechanical failure. Mild degenerative spondylosis and facet osteoarthropathy DISC SPACES: Multilevel disc space narrowing PARASPINOUS: Negative. No paraspinous abnormality is seen. OTHER: Negative. XR/XR lumbar spine 2-3V IMPRESSION: L4-S1 fusion with no mechanical failure. Electronically authenticated by: HEATHER MOLINA Date: 08/31/2024 08:14
--- OUTSIDE RECORDS SUMMARY | 2024-08-28 08:53 | XMS_ITS | CCD ---
Author Organization [facility] Care Team Providers Care Pouncer Name Role Phone DO Elmo Vela Attending Provider [phone] MIGUEL ANGEL, DR SYED Admitting Unavailable HOUSE, DR SYED Attending Unavailable HOUSE, DR SYED Consulting Unavailable HOUSE, DR SYED Primary Care Unavailable WIRYAN, DR KIARA Block Admitting Unavailable WIECEK, DR [...] Care Unavailable BERTA HERRERA Primary Care Physician Colt Michelle MD Primary Care Provider Maura Payne Attending Unavailable Maura Payne Attending Unavailable Maura Payne Referring Unavailable Maura Payne Admitting Unavailable Maura Payne Attending Unavailable Maura Payne Referring Unavailable Maura Payne Attending Unavailable BERTA HERRERA Referring Unavailable SOPHIA CHERRY Attending Unavailab le Maura Payne Attending Unavailable Maura Payne Attending Unavailable Thelma Rosas Attending Unavailable Alejandro Gimenez MD Primary Care Provider BEATRIZ BYNUM Referring Unavailable ALEJANDRO GIMENEZ Primary Care Unavailable ST QUIROZ, CECE F Referring Unavailable ALEJANDRO GIMENEZ Primary Care Unavailable KELLEY, SELVON F Admitting Unavailable KELLEY, SELVON F Attending Unavailable ALEJANDRO GIMENEZ Primary Care Unavailable ERIC, FLAVIA Velez Consulting Unavailable BEATRIZ BYNUM Referring Unavailable ALEJANDRO GIMENEZ Primary Care Unavailable MARCI PONCE Attending Unavailable PONCE, MARCI Gray Referring Unavailable PONCE, MARCI Gray Referring Unavailable BLACKSTON, MICHAEL T Attending Unavailable PONCE, MARCI Gray Referring Unavailable BRISSA BARRERA Attending Unavailable PONCE, MARCI Gray Referring Unavailable BLAZE GARCIA Attending Unavailable PONCE, MARCI Gray Referring Unavailable BLACKSTON, MICHAEL T Attending Unavailable PONCE, MARCI Gray Referring Unavailable PONCE, MARCI Gray Attending Unavailable BLACKSTON, MICHAEL T Attending Unavailable PONCE, MARCI Gray Referring Unavailable BLACKSTON, MICHAEL T Attending Unavailable PONCE, MARCI Gray Referring Unavailable ANNAMARIA, MICHAEL T Attending Unavailable KIRSTEN, MARCI Gray Referring Unavailable KIRSTEN, MARCI Gray Attending Unavailable KIRSTEN, MARCI Gray Referring Unavailable JR. TRE, HUDSON Fisher Attending Unavailly KELLER JR., HUDSON Fisher Attending Unavaila IVAN Avila Attending Unavailable DANNIE MARCUM Referring Unavailable IVAN BA Attending Unavailable JR. TRE, HUDSON Fisher Attending Unavaila MARCI Galloway Attending Unavailable MARCI PONCE Referring Unavailable Allergies Allergy Classification Reported Allergen(s) Allergy Type Date of Onset Reaction(s) Facility (1 source) No Known Medication Allergies; Translations: [No Known Medication Allergies] Propensity to adverse reactions (disorder) [facility] Repository Medications Current Medications Medication Drug Class(es) Dates Sig (Normalized) Sig (Original) acetaminophen 325 mg / HYDROcodone bitartrate 5 mg oral tablet (1 source) Opioid Agonist Start: 01-17-2024 Rodney 325 mg-5 mg oral tablet 1 tab(s), Oral, q6hr, 10 tab(s), Refill(s) 0, Take 1 tablet 1 hour prior to the procedure. Then take as needed for pain., [facility] #[id number] Start Date: 01/17/24 Status: Ordered acetaminophen 325 mg / oxyCODONE hydrochloride 5 mg oral tablet (1 source) Opioid Agonist Start: 07-02-2024 End: 07-09-2024 oxyCODONE-acetami nophen (PERCOCET) 5-325 MG per tablet Indications: Lumbar stenosis with neurogenic claudication Take 1 tablet by mouth every 6 hours as needed for Pain for up to 7 days. Intended supply: 7 days. Take lowest dose possible to manage pain Max Daily Amount: 4 tablets 28 tablet 07/02/2024 07/09/2024 Active amLODIPine 5 mg oral tablet (20 sources) Dihydropyridine Calcium Channel Jazmyne Start: 12-02-2023 take 1 tablet by mouth once daily amLODIPine (Norvasc) 5 MG tablet Take 5 mg by mouth Daily 03/09/2024 Active take 1 tablet by mouth in the mo rning amLODIPine (Norvasc) 10 MG tablet Take 10 mg by mouth in the morning. Active amoxicillin 500 mg oral tablet (16 sources) Penicillin-class Antibacterial Start: 05-06-2023 take 4 tablets by mouth once at mealtime amoxicillin (Amoxil) 500 MG tablet Indications: Status post hip replacement, unspecified laterality 4 tabs PO once 30-60 mins before procedure with food 4 tablet 3 05/06/2023 Active atorvastatin 20 mg oral tablet (17 sources) HMG-CoA Reductase Inhibitor End: 06-26-2024 take 1 tablet by mouth in the morning atorvastatin (Lipitor) 20 MG tablet Take 20 mg by mouth in the morning. Active cephalexin 500 mg oral capsule (9 sources) Cephalosporin Antibacterial Start: 04-27-2024 End: 07-27-2024 take 4 tablets by mouth every hour cephalexin (Keflex) 500 MG capsule TAKE 4 TABLETS BY MOUTH ONE HOUR prior to appointment 04/27/2024 07/27/2024 Discontinued cyclobenzaprine hydrochloride 10 mg oral tablet (3 sources) Muscle Relaxant Start: 07-01-2024 End: 07-12-2024 take 1 tablet by mouth three times daily as needed for muscle spasms cyclobenzaprine (FLEXERIL) 10 MG tablet Take 1 tablet by mouth 3 times daily as needed for Muscle spasms 30 tablet 07/02/2024 07/12/2024 Active Start: 06-30-2024 End: 07-01-2024 take 10 mg by mouth every twelve hours as needed for muscle spasms 10 mg, Oral, EVERY 12 HOURS PRN, Starting on Sat06/30/24 at 1753, Until Sat07/01/24 at 0646, Muscle spasms, Post-op diazePAM 10 mg oral tablet (1 source) Benzodiazepine Start: 01-17-2024 Valium 10 mg Tab 10 mg = 1 tab(s), Oral, Once, PRN for anxiety, Take 1 hour prior to the procedure., # 1 tab(s), Refills(s) 0, [facility]: [id number] Start Date: 01/17/24 Status: Ordered esomeprazole 40 mg delayed release oral capsule (20 sources) Proton Pump Inhibitor esomeprazole (NexIUM) [address] capsule 1 tablet Oral one or 2 times weekly Active morphine (PF) injection 2 mg (1 source) Start: 06-30-2024 morphine (PF) injection 2 mg ondansetron (ZOFRAN-ODT) disintegrating tablet 4 mg (1 source) Start: 06-30-2024 ondansetron (ZOFRAN-ODT) disintegrating tablet 4 mg oxybutynin chloride 5 mg oral tablet (1 source) Cholinergic Muscarinic Antagonist Start: 02-10-2024 take 1 tablet by mouth three times daily as needed oxybutynin 5 mg Tab 5 mg = 1 tab(s), Oral, TID, PRN Urinary discomfort, # 60 tab(s), Refills(s) 0, [facility]: [facility] #[id number], 190, cm, 02/10/24 9:23:00 EDT, Height/Length Dosing, 119, kg, 02/10/24 9:23:00 EDT, Weight Dosing Start Date: 02/10/24 Status: Ordered oxyCODONE (1 source) Opioid Agonist Start: 06-30-2024 oxyCODONE (ROXICODONE) immediate release tablet 5 mg polyethylene glycol [id number] [id number] mg powder for oral solution (1 source) Osmotic Laxative Start: 06-30-2024 17 g, Oral, DAILY, First dose on Sat06/30/24 at 1815, Until Discontinued, Stir and dissolve one packet of powder (17 g) in any 4 to 8 ounces of beverage (cold, hot or room temperature) then drink, Post-op sodium phosphate, dibasic 35.5 mg/ml / sodium phosphate, monobasic 96.4 mg/ml enema (1 source) Start: 06-30-2024 Completed/Discontinued Medications Medication Drug Class(es) Dates Sig (Normalized) Sig (Original) acetaminophen 325 mg oral tablet (1 source) Start: 06-30-2024 650 mg, Oral, EVERY 6 HOURS, First dose on Sat06/30/24 at 1815, Until Discontinued, Maximum dose of acetaminophen is 4000 mg from all sources in 24 hours., Post-op acetaminophen 325 mg / butalbital 50 mg / caffeine 40 mg oral tablet (1 source) Barbiturate, Central Nervous System Stimulant, Methylxanthine Start: 07-01-2024 End: 07-01-2024 take 1 tablet by mouth every twenty-four hours 1 tablet, Oral, ONCE, 1 dose, On Sat07/01/24 at 0445, Maximum dose of acetaminophen is 4000 mg from all sources in 24 hours. Start: 07-01-2024 End: 07-01-2024 take 1 tablet by mouth every twenty-four hours 1 tablet, Oral, ONCE, 1 dose, On Sat07/01/24 at 0445, Maximum dose of acetaminophen is 4000 mg from all sources in 24 hours. allopurinol 100 mg oral tablet (20 sources) Xanthine Oxidase Inhibitor Start: 12-02-2023 take 100 mg by mouth once daily 100 mg, Oral, DAILY, First dose on Sat06/30/24 at 1815, Until Discontinued Start: 12-20-2022 allopurinol (Z yloprim) 100 MG tablet Take 150 mg by mouth in the morning. 12/20/2022 Active bisacodyl 5 mg delayed release oral tablet (2 sources) Stimulant Laxative Start: 06-30-2024 take 5 mg by mouth once daily 5 mg, Oral, DAILY, First dose on Sat06/30/24 at 1815, Until Discontinued, Do not crush or break., Post-op Start: 06-30-2024 take 10 mg rectal ro yany once daily as needed for constipation 10 mg, Rectal, DAILY PRN, Starting on Sat06/30/24 at 1753, Until Discontinued, Constipation, First line therapy for constipation, Post-op ceFAZolin (ANCEF) 2,000 mg in sterile water 20 mL IV syringe (1 source) Start: 06-30-2024 End: 07-01-2024 2,000 mg, IntraVENous, EVERY 8 HOURS, 2 doses, First dose on Sat06/30/24 at 2300, Last dose on Sat07/01/24 at 0700, Antimicrobial Indications: Surgical Prophylaxis, Administer over 5 mins. Reconstitute 2 g vial with 20 mL Sterile Water. Withdraw entire contents., Post-op ciprofloxacin 3 mg/ml ophthalmic solution (1 source) Quinolone Antimicrobial Start: 06-30-2024 End: 07-01-2024 take 1 drop(s) into the eye(s) three times daily 1 drop, Right Eye, 3 times daily, First dose on Sat06/30/24 at 2100, Until Discontinued 1 ml dexamethasone phosphate 10 mg/ml prefilled syringe (1 source) Corticosteroid Start: 07-01-2024 End: 07-01-2024 10 mg, IntraVENous, EVERY 8 HOURS, First dose on Sat07/01/24 at 0715, For 3 doses docusate sodium 56.6 mg/ml enema (1 source) Start: 07-02-2024 take 283 mg rectal route once daily as needed 283 mg (1 enema), Rectal, DAILY PRN, Starting on Disha 07/02/24 at 1433, Until Discontinued, Constipation docusate sodium 50 mg / sennosides, alf 8.6 mg oral tablet (1 source) Start: 06-30-2024 take 1 tablet by mouth twice daily 1 tablet, Oral, 2 TIMES DAILY, First dose on Sat06/30/24 at 2100, Until Discontinued, Post-op 2 ml fentaNYL 0.05 mg/ml injection (1 source) Opioid Agonist Start: 06-30-2024 End: 06-30-2024 50 mcg, IntraVENous, EVERY 5 MIN PRN, 2 doses, Starting on Sat06/30/24 at 1633, Until Sat06/30/24 at 1705, Pain Severe (7-10), For Phase I. If Phase II oral narcotics have been administered in the last 60 minutes, do not administer IV narcotics unless specifically approved by provider., PACU only 1 ml HYDROmorphone hydrochloride 1 mg/ml cartridge (2 sources) Opioid Agonist Start: 06-30-2024 End: 06-30-2024 0.25 mg, IntraVENous, EVERY 5 MIN PRN, 2 doses, Starting on Sat06/30/24 at 1653, Until Sat06/30/24 at 1710, Pain Moderate (4-6), If oral and IV narcotics ordered, use oral first and only use IV if oral is ineffective or cannot take oral. Do Not give oral and IV within 1 hour of each other unless specifically ordered., PACU only ketorolac tromethamine 5 mg/ml ophthalmic solution (12 sources) Nonsteroidal Anti-inflammatory Drug, Cyclooxygenase Inhibitor Start: 07-01-2024 take 1 drop(s) into the eye(s) four times daily 1 drop, Right Eye, 4 TIMES DAILY, First dose (after last modification) on Sat07/01/24 at 2100, Until Discontinued Start: 06-30-2024 End: 07-01-2024 take 1 drop(s) into the eye(s) three times daily 1 drop, Right Eye, 3 times daily, First dose on Sat06/30/24 at 2100, Until Discontinued Start: 06-22-2024 take 1 drop(s) into the eye(s) at bedtime ketorolac (ACULAR) 0.5 % ophthalmic solution Place 1 drop into the right eye in the morning, at noon, and at bedtime 06/22/2024 Suspended Start: 05-19-2024 End: 06-18-2024 take 1 drop(s) into the eye(s) in the morning ketorolac (Acular) 0.5 % ophthalmic solution Indications: Age-related nuclear cataract of both eyes Administer 1 drop into affected eye(s) in the morning and 1 drop before bedtime. 5 mL 1 05/19/2024 06/18/2024 Active lisinopril 20 mg oral tablet (20 sources) Angiotensin Converting Enzyme Inhibitor Start: 12-02-2023 take 20 mg by mouth once daily 20 mg, Oral, DAILY, First dose on Sat06/30/24 at 1815, Until Discontinued methylPREDNISolone (5 sources) Corticosteroid Start: 03-11-2024 End: 04-15-2024 methylPREDNISolone (Medrol Dospak) 4 MG tablets Indications: Lumbar back pain with radiculopathy affecting left lower extremity Follow schedule on package instructions 21 tablet 03/11/2024 04/15/2024 Discontinued Start: 03-11-2024 methylPREDNISo lone (Medrol Dospak) 4 MG tablets Indications: Lumbar back pain with radiculopathy affecting left lower extremity Follow schedule on package instructions 21 tablet 03/11/2024 Active ofloxacin 3 mg/ml ophthalmic solution (5 sources) Quinolone Antimicrobial Start: 06-22-2024 take 1 drop(s) into the eye(s) at bedtime ofloxacin (OCUFLOX) 0.3 % solution Place 1 drop into the right eye in the morning, at noon, and at bedtime 06/22/2024 Suspended Start: 05-19-2024 End: 05-20-2024 take 1 drop(s) into the eye(s) five times daily ofloxacin (Ocuflox) 0.3 % ophthalmic solution Indications: Age-related nuclear cataract of both eyes Administer 1 drop into affected eye(s) 5 (five) times a day for 1 day Starting 1 day before surgery, continue after surgery as directed 5 mL 1 05/19/2024 05/20/2024 Active 2 ml ondansetron 2 mg/ml injection (2 sources) Serotonin-3 Receptor Antagonist Start: 06-30-2024 End: 06-30-2024 4 mg, IntraVENous, ONCE, 1 dose, On Sat06/30/24 at 1715, PACU only Start: 06-30-2024 End: 06-30-2024 1 dose, Starting on 06/21 at 1649, Until Sat06/30/24 at 1650, Clari Muñiz: cabinet override, Clari Muñiz: cabinet override pantoprazole 40 mg delayed release oral tablet (1 source) Proton Pump Inhibitor Start: 07-01-2024 40 mg, Oral, DAILY BEFORE BREAKFAST, First dose on Sat07/01/24 at 0930, Until Discontinued, Substituted for Esomeprazole (NEXIUM). pravastatin sodium 40 mg oral tablet (20 sources) HMG-CoA Reductase Inhibitor Start: 12-02-2023 take 1 tablet by mouth once daily pravastatin (PRAVACHOL) 40 MG tablet Take 1 tablet by mouth daily 06/04/2024 Suspended prednisoLONE acetate 10 mg/ml ophthalmic suspension (9 sources) Corticosteroid Start: 07-01-2024 take 1 drop(s) into the eye(s) twice daily 1 drop, Right Eye, 2 times daily, First dose (after last modification) on Sat07/01/24 at 2100, Until Discontinued Start: 06-30-2024 End: 07-01-2024 take 1 drop(s) into the eye(s) three times daily 1 drop, Right Eye, 3 TIMES DAILY, First dose on Sat06/30/24 at 2100, Until Discontinued Start: 06-22-2024 prednisoLONE a cetate (PRED FORTE) 1 % ophthalmic suspension Place 1 drop into the right eye 3 times daily 06/22/2024 Suspended Start: 05-19-2024 End: 06-02-2024 prednisoLONE acetate (Pred-F orte) 1 % ophthalmic suspension Indications: Age-related nuclear cataract of both eyes Administer 1 drop into affected eye(s) in the morning and 1 drop at noon and 1 drop in the evening and 1 drop before bedtime. Do all this for 14 days. 5 mL 1 05/19/2024 06/02/2024 predniSONE 50 mg oral tablet (3 sources) Start: 12-02-2023 predniSONE 50 mg Tab 5 EA, 0 Refill(s), take 1 tablet by mouth once daily for 5 days, Refills(s) 0 Start Date: 12/02/23 Status: Ordered 5 ml sodium chloride 9 mg/ml injection (5 sources) Start: 06-30-2024 5-40 mL, Intra VENous, EVERY 12 HOURS SCHEDULED (2 times per day), First dose on Sat06/30/24 at 2100, Until Discontinued, For Line Patency: Peripheral IV = 5 mL; Midline or Central Line = 10 mL/lumen. If following IV push medication, administer flush at same rate as the IV push. Flush volume is determined by type of infusion therapy being given. For non-viscous solutions use: Peripheral IV = 5 mL Midline or Central Line = 10 mL/lumen For viscous solutions (i.e. blood components, parenteral nutrition, contrast media, or after obtaining blood sample) use: Peripheral IV = 10 mL Midline or Central Line = 20 mL/lumen, Post-op Start: 06-30-2024 IntraVENous, a t 125 mL/hr, CONTINUOUS, Starting on Sat06/30/24 at 1815, Post-op Start: 06-30-2024 5-40 mL, Intra VENous, PRN, Starting on Sat06/30/24 at 1753, Until Discontinued, Line Care, After every IV line use, For Line Patency: Peripheral IV = 5 mL; Midline or Central Line = 10 mL/lumen. If following IV push medication, administer flush at same rate as the IV push. Flush volume is determined by type of infusion therapy being given. For non-viscous solutions use: Peripheral IV = 5 mL Midline or Central Line = 10 mL/lumen For viscous solutions (i.e. blood components, parenteral nutrition, contrast media, or after obtaining blood sample) use: Peripheral IV = 10 mL Midline or Central Line = 20 mL/lumen, Post-op Start: 06-30-2024 End: 06-30-2024 IntraVENous, at 5-250 mL/hr, PRN, if patient receiving piggyback infusions and maintenance fluids are not ordered, Starting on Sat06/30/24 at 1129, For piggyback infusion, administer at same rate as piggyback for a total of 25 mL. Enter 25 mL into dose field and piggyback rate into rate field of order. If piggyback is infusing at a rate less than 100 mL/hr, enter 25 mL into dose field and 100 mL/hr into rate field of order., Pre-op (day of surgery) tamsulosin hydrochloride 0.4 mg oral capsule (20 sources) alpha-Adrenergic Jazmyne Start: 12-02-2023 End: 06-26-2024 tamsulosin 0.4 mg Cap 90 EA, 0 Refill(s), take 1 capsule by mouth once daily, Refills(s) 0 Start Date: 12/02/23 Status: Ordered take 1 capsule by [facility] every twenty-four hours in the morning tamsulosin (Flomax) 0.4 MG 24 hr capsule Take 0.4 mg by mouth in the morning. Active Problems Active Problems Problem Classification Problem Date Documented Date Episodic/Chronic Anxiety disorders (16 sources) Generalized anxiety disorder; Translations: [Generalized anxiety disorder] Onset: 07-18-2018 04-22-2023 Chronic Cataract (2 sources) Bilateral age-related nuclear cataracts; Translations: [Age-related nuclear cataract, bilateral] 05-19-2024 Chronic Diabetes mellitus without complication (2 sources) Type 2 diabetes mellitus 03-30-2024 Chronic Disorders of lipid metabolism (20 sources) Hyperlipidemia; Translations: [Mixed hyperlipidemia] Onset: 09-23-2016 12-02-2023 Chronic Esophageal disorders (16 sources) Gastroesophageal reflux disease without esophagitis; Translations: [Gastro-esophageal reflux disease without esophagitis] Onset: 09-20-2016 04-22-2023 Chronic Essential hypertension (20 sources) Hypertensive disorder; Translations: [Essential hypertension] Onset: 09-25-2017 12-02-2023 Chronic Genitourinary symptoms and ill-defined conditions (7 sources) Nocturia; Translations: [Dysuria] Onset: 01-17-2022 Episodic Gout and other crystal arthropathies (20 sources) Gout; Translations: [Primary gout] Onset: 12-02-2017 12-02-2023 Chronic Hyperplasia of prostate (9 sources) Benign prostatic hypertrophy with outflow obstruction; Translations: [Benign prostatic hyperplasia with lower urinary tract symptoms] Onset: 12-03-2023 Chronic Osteoarthritis (20 sources) Arthritis of left knee; Translations: [Unilateral primary osteoarthritis, left knee] Onset: 10-09-2016 04-22-2023 Chronic Other connective tissue disease (16 sources) Artificial knee joint present; Translations: [Presence of unspecified artificial knee joint] Onset: 04-22-2023 04-22-2023 Chronic Other connective tissue disease (16 sources) History of total hip arthroplasty; Translations: [Presence of right artificial hip joint] Onset: 04-22-2023 04-22-2023 Chronic Other connective tissue disease (16 sources) History of total knee arthroplasty; Translations: [Presence of unspecified artificial knee joint] Onset: 04-22-2023 04-22-2023 Chronic Other diseases of kidney and ureters (1 source) Urinary tract obstruction; Translations: [Other obstructive and reflux uropathy] Onset: 02-10-2024 Episodic Other male genital disorders (8 sources) Male erectile dysfunction, unspecified; Translations: [Erectile dysfunction] Onset: 12-03-2023 Chronic Other nervous system disorders (16 sources) Chronic pain; Translations: [Other chronic pain] Onset: 09-20-2016 04-22-2023 Chronic Other non-traumatic joint disorders (18 sources) Pain in right knee; Translations: [Pain in joint, lower leg] Onset: 04-22-2023 04-22-2023 Episodic Other non-traumatic joint disorders (4 sources) Pain in left knee; Translations: [Pain in joint, lower leg] 06-10-2024 Episodic Other screening for suspected conditions (not mental disorders or infectious disease) (8 sources) Raised prostate specific antigen; Translations: [Elevated prostate specific antigen [PSA]] Onset: 12-03-2023 Episodic Spondylosis; intervertebral disc disorders; other back problems (16 sources) Lumbago-sciatica due to displacement of lumbar intervertebral disc; Translations: [Other intervertebral disc displacement, lumbosacral region] Onset: 10-08-2016 04-22-2023 Chronic Spondylosis; intervertebral disc disorders; other back problems (11 sources) Lumbar radiculopathy; Translations: [Radiculopathy, lumbar region] Onset: 06-30-2024 06-10-2024 Episodic Unclassified (1 source) CONTACT W/AND (SUSP) EXPOS COVID-19; Translations: [CONTACT W/AND (SUSP) EXPOS COVID-19] Onset: 04-01-2022 Unclassified (5 sources) Measurement finding 12-03-2023 Unclassified (1 source) Finding of sensation of bladder 06-08-2024 Unclassified (1 source) Other intervertebral disc degeneration, 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; Translations: [Other intervertebral disc degeneration, 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] Onset: 06-26-2024 Past or Other Problems Problem Classification Problem Date Documented Date Episodic/Chronic Abdominal hernia (17 sources) Umbilical hernia without obstruction or gangrene; Translations: [Irreducible umbilical hernia] Onset: 03-30-2022 04-22-2023 Episodic Abdominal pain (16 sources) Periumbilical pain; Translations: [Periumbilical pain] Onset: 04-22-2023 04-22-2023 Episodic Diabetes mellitus without complication (16 sources) Prediabetes; Translations: [Prediabetes] Onset: 04-11-2021 04-22-2023 Episodic Other nutritional; endocrine; and metabolic disorders (16 sources) Body mass index 25-29 - overweight; Translations: [Overweight] Onset: 04-22-2023 04-22-2023 Episodic Other nutritional; endocrine; and metabolic disorders (16 sources) Overweight; Translations: [Overweight] Onset: 04-11-2021 04-22-2023 Episodic Residual codes; unclassified (16 sources) Family history of diabetes mellitus; Translations: [Family history of diabetes mellitus] Onset: 04-11-2021 04-22-2023 Episodic Unclassified (1 source) Other intervertebral disc degeneration, 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 No evidence of accelerated or asymmetric wear to tibial tray or patella button. No evidence of fracture or dislocation. Impression: Unremarkable left total knee arthroplasty [facility] [employer] XR Knee - right 1 or 2 Views on 07-27-2024 Imaging Result: AP and Lateral of right knee: Surgical position and alignment of prosthetic components without evidence of loosening or wear to femora, tibial or patellar components, The alignment appears to be anatomic. No evidence of accelerated or asymmetric wear to tibial tray or patella button. No evidence of fracture or dislocation. Impression: Unremarkable right total knee arthroplasty [facility] [employer] ANION GAPon 07-02-2024 Anion gap [Moles/Vol] 12.0 mmol/L Normal 8.0-16.0 [facility] Comment on above: Result Comment: ANIO N GAP = Sodium -(Chloride + CO2) Performed By: #### H H, EGFR1, BMP, ANION #### [email or web address] [address] [place] [address] Anion Gapon 07-02-2024 Anion gap [Moles/Vol] 12.0 mmol/L 8.0 - 16.0 meq/L [facility] Comment on above: ANION GAP = Sodium - (Chloride + CO2) Performed at [facility] [address] [place] [address] BASIC METABOL PANELon 2023 Calcium [Mass/Vol] 9.2 mg/dL Normal 8.5-10.5 [place] [facility] Comment on above: Performed By: #### H H, EGFR1, BMP, ANION #### [facility] [address] [place] [address] Chloride [Moles/Vol] 101 mmol/L Normal 98-111 [facility] Comment on above: Performed By: #### H H, EGFR1, BMP, ANION #### [facility] [address] [place] [address] CO2 [Moles/Vol] 24 mmol/L Normal 23-33 [facility] Comment on above: Performed By: #### H H, EGFR1, BMP, ANION #### [facility] [address] [place] [address] Creatinine [Mass/Vol] 0.8 mg/dL Normal 0.4-1.2 [facility] Comment on above: Performed By: #### H H, EGFR1, BMP, ANION #### [facility] [address] [place] [address] Glucose [Mass/Vol] 189 mg/dL High 70-108 [facility] Comment on above: Performed By: #### H H, EGFR1, BMP, ANION #### [facility] [address] [place] [address] Potassium [Moles/Vol] 4.7 mmol/L Normal 3.5-5.2 [facility] Comment on above: Performed By: #### H H, EGFR1, BMP, ANION #### [facility] [address] [place] [address] Sodium [Moles/Vol] 137 mmol/L Normal 135-145 [facility] Comment on above: Performed By: #### H H, EGFR1, BMP, ANION #### [facility] [address] [place] [address] Urea nitrogen [Mass/Vol] 18 mg/dL Normal 7-22 [facility] Comment on above: Performed By: #### H H, EGFR1, BMP, ANION #### [facility] [address] [place] [address] Basic metabolic 2000 panelon 07-02-2024 Calcium [Mass/Vol] 9.2 mg/dL 8.5 - 10. 5 mg/dL [facility] [employer] Comment on above: Performed at [facility] [address] [place] [address] Chloride [Moles/Vol] 101 mmol/L 98 - 111 meq/L Bon [facility] CO2 [Moles/Vol] 24 mmol/L 23 - 33 meq/L [facility] Creatinine [Mass/Vol] 0.8 mg/dL 0.4 - 1.2 mg/dL [facility] [employer] Glucose [Mass/Vol] 189 mg/dL High 70 - 108 mg/dL [facility] [employer] Interpretation and review of laboratory results Abnormal [facility] [employer] Potassium [Moles/Vol] 4.7 mmol/L 3.5 - 5.2 meq/L [facility] Sodium [Moles/Vol] 137 mmol/L 135 - 145 meq/L [facility] [employer] Urea nitrogen [Mass/Vol] 18 mg/dL 7 - 22 mg/dL [facility] [employer] GFR, ESTIMATEDon 07-02-2024 GFR/1.73 sq M.predicted MDRD (S/P/Bld) [Vol rate/Area] mL/min/{1.73_m2} Normal >60 [facility] [employer] Comment on above: Pediatric calculator link https://www.kidney.org/professionals/kdoqi/gfr_calculatorped Effective Apr 23, 2022 These results are not intended for use in patients <18 years of age. eGFR results are calculated without a race factor using the 2020 CKD-EPI equation. Careful clinical correlation is recommended, particularly when comparing to results calculated using previous equations. The CKD-EPI equation is less accurate in patients with extremes of muscle mass, extra-renal metabolism of creatinine, excessive creatine ingestion, or following therapy that affects renal tubular secretion. [place] [address] Result Comment: Pedi atric calculator link https://www.kidney.org/professionals/kdoqi/gfr_calculatorped Effective Apr 23, 2022 These results are not intended for use in patients <18 years of age. eGFR results are calculated without a race factor using the 2020 CKD-EPI equation. Careful clinical correlation is recommended, particularly when comparing to results calculated using previous equations. The CKD-EPI equation is less accurate in patients with extremes of muscle mass, extra-renal metabolism of creatinine, excessive creatine ingestion, or following therapy that affects renal tubular secretion. Performed By: #### H H, EGFR1, BMP, ANION #### [facility] [address] [place] [address] HGB,HCTon 07-02-2024 Hematocrit (Bld) [Volume fraction] 44.1 % Normal 42.0-52.0 [facility] Comment on above: Performed at [facility] [address] [place] [address] Performed By: #### H H, EGFR1, BMP, ANION #### [facility] [address] [place] [address] Hemoglobin (Bld) [Mass/Vol] 14.1 g/dL Normal 14.0-18.0 [facility] Comment on above: Performed By: #### H H, EGFR1, BMP, ANION #### [facility] [address] [place] [address] Hemoglobin and Hematocrit pa zenia (Bld)on 07-02-2024 [facility] No Panel Informationon 07-02 [facility] ANION GAPon 07-01-2024 Anion gap [Moles/Vol] 12.0 mmol/L Normal 8.0-16.0 [facility] Comment on above: Result Comment: ANIO N GAP = Sodium -(Chloride + CO2) Performed By: #### H H, BMP, ANION, EGFR1 #### [facility] [address] [address] Anion Gapon 07-01-2024 Anion gap [Moles/Vol] 12.0 mmol/L 8.0 - 16.0 meq/L [facility] Comment on above: ANION GAP = Sodium - (Chloride + CO2) Performed at [facility] [address] [place] [address] BASIC METABOL PANELon 2023 Calcium [Mass/Vol] 8.6 mg/dL Normal 8.5-10.5 [facility] Comment on above: Performed By: #### H H, BMP, ANION, EGFR1 #### [employer] [address] [place] [address] Chloride [Moles/Vol] 101 mmol/L Normal 98-111 [facility] Comment on above: Performed By: #### H H, BMP, ANION, EGFR1 #### [facility] [address] [place] [address] CO2 [Moles/Vol] 21 mmol/L Low 23-33 [facility] Comment on above: Performed By: #### H H, BMP, ANION, EGFR1 #### [facility] [address] [place] [address] Creatinine [Mass/Vol] 0.8 mg/dL Normal 0.4-1.2 [facility] Comment on above: Performed By: #### H H, BMP, ANION, EGFR1 #### [facility] [address] [place] [address] Glucose [Mass/Vol] 158 mg/dL High 70-108 [facility] Comment on above: Performed By: #### H H, BMP, ANION, EGFR1 #### [facility] [address] [place] [address] Potassium [Moles/Vol] 4.4 mmol/L Normal 3.5-5.2 [facility] Comment on above: Performed By: #### H H, BMP, ANION, EGFR1 #### [facility] [address] [place] [address] Sodium [Moles/Vol] 134 mmol/L Low 135-145 [facility] Comment on above: Performed By: #### H H, BMP, ANION, EGFR1 #### [facility] [address] [place] [address] Urea nitrogen [Mass/Vol] 13 mg/dL Normal 7-22 [facility] Comment on above: Performed By: #### H H, BMP, ANION, EGFR1 #### [facility] [address] [place] [address] Basic metabolic 2000 panelon 07-01-2024 Calcium [Mass/Vol] 8.6 mg/dL 8.5 - 10. 5 mg/dL [facility] [employer] Comment on above: Performed at [facility] [address] [place] [address] Chloride [Moles/Vol] 101 mmol/L 98 - 111 meq/L [facility] [employer] CO2 [Moles/Vol] 21 mmol/L Low 23 - 33 meq/L [facility] [employer] [facility] Creatinine [Mass/Vol] 0.8 mg/dL 0.4 - 1.2 mg/dL [facility] Glucose [Mass/Vol] 158 mg/dL High 70 - 108 mg/dL [facility] [employer] [facility] Interpretation and review of laboratory results Abnormal [facility] [employer] Potassium [Moles/Vol] 4.4 mmol/L 3.5 - 5.2 meq/L [facility] Sodium [Moles/Vol] 134 mmol/L Low 135 - 145 meq/L [facility] Urea nitrogen [Mass/Vol] 13 mg/dL 7 - 22 mg/dL [facility] GFR, ESTIMATEDon 07-01-2024 GFR/1.73 sq M.predicted MDRD (S/P/Bld) [Vol rate/Area] mL/min/{1.73_m2} Normal >60 [facility] Comment on above: Pediatric calculator link https://www.kidney.org/professionals/kdoqi/gfr_calculatorped Effective Apr 23, 2022 These results are not intended for use in patients <18 years of age. eGFR results are calculated without a race factor using the 2020 CKD-EPI equation. Careful clinical correlation is recommended, particularly when comparing to results calculated using previous equations. The CKD-EPI equation is less accurate in patients with extremes of muscle mass, extra-renal metabolism of creatinine, excessive creatine ingestion, or following therapy that affects renal tubular secretion. [place]formed [place] [address] Result Comment: Pedi atric calculator link https://www.kidney.org/professionals/kdoqi/gfr_calculatorped Effective Apr 23, 2022 These results are not intended for use in patients <18 years of age. eGFR results are calculated without a race factor using the 2020 CKD-EPI equation. Careful clinical correlation is recommended, particularly when comparing to results calculated using previous equations. The CKD-EPI equation is less accurate in patients with extremes of muscle mass, extra-renal metabolism of creatinine, excessive creatine ingestion, or following therapy that affects renal tubular secretion. Performed By: #### H H, BMP, ANION, EGFR1 #### [employer] [address] [place] [address] HGB,HCTon 07-01-2024 Hematocrit (Bld) [Volume fraction] 43.9 % Normal 42.0-52.0 [facility] [employer] Comment on above: Performed at [facility] [employer] [address] [place] [address] Performed By: #### H H, BMP, ANION, EGFR1 #### [facility] [address] [place] [address] Hemoglobin (Bld) [Mass/Vol] 14.5 g/dL Normal 14.0-18.0 [facility] [employer] Comment on above: Performed By: #### H H, BMP, ANION, EGFR1 #### [facility] [address] [place] [address] Hemoglobin and Hematocrit pa zenia (Bld)on 07-01-2024 [employer] No Panel Informationon 07-01 [employer] TYPE AND SCREENon 06-30-2024 ABO B [employer] Rh Factor Positive [employer] [facility] [employer] TYPE AND SCREEN CAPTUREon ABO CAPTURE B Normal [facility] Comment on above: Performed By: #### C T+S #### [employer] [address] [place] [address] INDIRECT BERYL CAPTURE Negative Normal [facility] Comment on above: Performed By: #### C T+S #### [facility] [address] [place] [address] RH CAPTURE (2 D CLONES) Positive Normal [facility] Comment on above: Performed By: #### C T+S #### [employer] [address] [place] [address] XR Lumbar spine Single viewo n 06-30-2024 1. Single intraoperative crossfire view of the lumbar spine was performed. Posterior fusion hardware is demonstrated extending from L4-S1. The visualized surgical hardware appears grossly intact. The osseous framework appears grossly unremarkable. Please refer to operative report for further details. This report has been created using voice recognition software. It may contain minor errors which are inherent in voice recognition technology. Electronically signed by Dr. Syed Tidwell [facility] Jordan Barnes MD - 06/30/2024 PROCEDURE: XR LUMBAR SPINE 1 VW CLINICAL INFORMATION: surgery COMPARISON: No prior study. TECHNIQUE: Single crossfire lateral view of the lumbar spine was obtained. FINDINGS: Single intraoperative crossfire view of the lumbar spine was performed. Posterior fusion hardware is demonstrated extending from L4-S1. The visualized surgical hardware appears grossly intact. The osseous framework appears grossly unremarkable. Please refer to operative report for further details. IMPRESSION: 1. Single intraoperative crossfire view of the lumbar spine was performed. Posterior fusion hardware is demonstrated extending from L4-S1. The visualized surgical hardware appears grossly intact. The osseous framework appears grossly unremarkable. Please refer to operative report for further details. This report has been created using voice recognition software. It may contain minor errors which are inherent in voice recognition technology. Electronically signed by Dr. Syed Tidwell [facility] Radiology Study observation (narrative) [facility] XR Lumbar spine Single viewO rdered By: Jordan Tidwell on 06-30-2024 [facility] Work Phone: MRSA BY PCRon 06-27-2024 MRSA SCREEN RT-PCR Negative Normal [facility] Comment on above: Result Comment: No M RSA detected by Real Time - Polymerase Chain Reaction. Specimen Source: Nares Performed By: #### M RSP #### [facility] [address] [place] [address] MRSA DNA GEORGIE+probe Ql (Unsp spec)on 06-27-2024 [facility] MRSA by PCRon 06-27-2024 MRSA DNA GEORGIE+probe Ql (Unsp spec) Negative [facility] Comment on above: No MRSA detected by Real Time - Polymerase Chain Reaction. Specimen Source: Nares Performed at [facility] [address] [place] [address] ANION GAPon 06-26-2024 Anion gap [Moles/Vol] 12.0 mmol/L Normal 8.0-16.0 [facility] Comment on above: Result Comment: ANIO N GAP = Sodium -(Chloride + CO2) Performed By: #### H H, BMP, ANION, EGFR1 #### [employer] [address] [place] [address] APTTon 06-26-2024 aPTT Coag (Bld) [Time] 33.2 s Normal 22.0-38.0 [facility] Comment on above: Result Comment: Ther apeutic Heparin Reference Range= 60-95 seconds (corresponds to 0.3 to 0.7 u/mL Anti-Xa factor activity) Performed By: #### H H, BMP, ANION, EGFR1 #### [place] [address] Anion Gapon 06-26-2024 Anion gap [Moles/Vol] 12.0 mmol/L 8.0 - 16.0 meq/L [facility] Comment on above: ANION GAP = Sodium - (Chloride + CO2) Performed at [facility] [address] [place] [address] BASIC METABOL PANELon 2023 Calcium [Mass/Vol] 9.8 mg/dL Normal 8.5-10.5 [facility] Comment on above: Performed By: #### H H, BMP, ANION, EGFR1 #### [place] [address] Chloride [Moles/Vol] 102 mmol/L Normal 98-111 [facility] Comment on above: Performed By: #### H H, BMP, ANION, EGFR1 #### [address] [address] CO2 [Moles/Vol] 25 mmol/L Normal 23-33 [facility] Comment on above: Performed By: #### H H, BMP, ANION, EGFR1 #### [address] [address] Creatinine [Mass/Vol] 1.0 mg/dL Normal 0.4-1.2 [facility] Comment on above: Performed By: #### H H, BMP, ANION, EGFR1 #### [address] [address] Glucose [Mass/Vol] 109 mg/dL High 70-108 [facility] Comment on above: Performed By: #### H H, BMP, ANION, EGFR1 #### [address] [address] Potassium [Moles/Vol] 4.8 mmol/L Normal 3.5-5.2 [facility] Comment on above: Performed By: #### H H, BMP, ANION, EGFR1 #### [address] [address] Sodium [Moles/Vol] 139 mmol/L Normal 135-145 [facility] Comment on above: Performed By: #### H H, BMP, ANION, EGFR1 #### [facility] [address] [place] [address] Urea nitrogen [Mass/Vol] 17 mg/dL Normal 7-22 [facility] Comment on above: Performed By: #### H H, BMP, ANION, EGFR1 #### [facility] [address] [place] [address] Basic metabolic 2000 panelon 06-26-2024 Calcium [Mass/Vol] 9.8 mg/dL 8.5 - 10. 5 mg/dL [facility] [employer] Comment on above: Performed at [facility] [address] [place] [address] Chloride [Moles/Vol] 102 mmol/L 98 - 111 meq/L [facility] [employer] CO2 [Moles/Vol] 25 mmol/L 23 - 33 meq/L [facility] Creatinine [Mass/Vol] 1.0 mg/dL 0.4 - 1.2 mg/dL [facility] Glucose [Mass/Vol] 109 mg/dL High 70 - 108 mg/dL [facility] [email or web address]) Interpretation and review of laboratory results Abnormal [facility] Potassium [Moles/Vol] 4.8 mmol/L 3.5 - 5.2 meq/L [facility] Sodium [Moles/Vol] 139 mmol/L 135 - 145 meq/L [facility] Urea nitrogen [Mass/Vol] 17 mg/dL 7 - 22 mg/dL [facility] CBCon 06-26-2024 Erythrocyte distribution width (RBC) [Entitic vol] 41.0 fL 35.0 - 45.0 fL [facility] Platelets (Bld) [#/Vol] 266 10*3/uL [facility] RBC (Bld) [#/Vol] 5.66 10*6/uL [facility] WBC (Bld) [#/Vol] 6.4 10*3/uL [facility] CBC NO DIFFERENTIALon 2023 Erythrocyte distribution width (RBC) [Ratio] 12.6 % Normal 11.5-14.5 [employer] [facility] Comment on above: Performed By: #### H Shanika BMP, ANION, EGFR1 #### [place] [address] Hematocrit (Bld) [Volume fraction] 49.9 % Normal 42.0-52.0 [facility] [employer] Comment on above: Performed By: #### H H, BMP, ANION, EGFR1 #### [place] [address] Hemoglobin (Bld) [Mass/Vol] 16.4 g/dL Normal 14.0-18.0 [employer] [facility] Comment on above: Performed By: #### H Shanika BMP, ANION, EGFR1 #### [place] [address] MCH (RBC) [Entitic mass] 29.0 pg Normal 26.0-33.0 [facility] Comment on above: Performed By: #### H H BMP, ANION, EGFR1 #### [place] [address] MCHC (RBC) [Mass/Vol] 32.9 g/dL Normal 32.2-35.5 [facility] [employer] Comment on above: Performed By: #### H Shanika BMP, ANION, EGFR1 #### [place] [address] MCV (RBC) [Entitic vol] 88.2 fL Normal 80.0-94.0 [facility] [employer] [facility] Comment on above: Performed By: #### H H, BMP, ANION, EGFR1 #### [place] [address] PLATELET 266 thou/mm3 Normal 130-400 [facility] Comment on above: Performed By: #### H H, BMP, ANION, EGFR1 #### [place] [address] Platelet mean volume (Bld) [Entitic vol] 9.7 fL Normal 9.4-12.4 [facility] [employer] [facility] Comment on above: Performed at [facility] [address] [place] [address] Performed By: #### H H, BMP, ANION, EGFR1 #### [facility] [address] [place] [address] RBC 5.66 mill/mm3 Normal 4.70-6.10 [facility] Comment on above: Performed By: #### H H, BMP, ANION, EGFR1 #### [facility] [address] [place] [address] RDW-SD 41.0 fL Normal 35.0-45.0 [facility] Comment on above: Performed By: #### H H, BMP, ANION, EGFR1 #### [facility] [address] [place] [address] WBC 6.4 thou/mm3 Normal 4.8-10.8 [facility] Comment on above: Performed By: #### H H, BMP, ANION, EGFR1 #### [facility] [address] [place] [address] EKG 12 LeadOrdered By: Maria De La Rosa on 06-26-2024 Atrial Rate 57 BPM [employer] Work Phone: P [place] 56 degrees [employer] Work Phone: P-R Interval 214 ms [employer] Phone: Q-T Interval 406 ms [employer] Phone: QRS Duration 74 ms [employer] Phone: QTc Calculation (Bazett) 395 ms [employer] Work Phone: R [place] 30 degrees [employer] Phone: T [place] 42 degrees [employer] Work Phone: Ventricular Rate 57 BPM [employer] Work Phone: [employer] Phone: EKG 12 Leadon 06-26-2024 Sinus bradycardia with 1st degree A-V block Otherwise normal ECG No previous ECGs available Confirmed by REANNA DE LA ROSA ([id number]) on 06/26/2024 3:31:35 PM [facility] STR Reanna Dillon MD - 06/26/2024 Sinus bradycardia with 1st degree A-V block Otherwise normal ECG No previous ECGs available Confirmed by REANNA DE LA ROSA ([id number]) on 06/26/2024 3:31:35 PM [facility] EKG 12-LEADon 06-26-2024 EKG 12-LEAD 57 57 214 74 406 395 56 30 42 Sinus bradycardia with 1st degree A-V block Otherwise normal ECG No previous ECGs available Confirmed by REANNA DE LA ROSA ([id number]) on 06/26/2024 3:31:35 PM [email or web address] teTime?[email or web address] [id number]&Date=01-01-20 24&Time=13%3a37%3a20 %3a00&TestType=ECG&S ite=3&OutputType=PDF &Ext=PDF Normal [facility] GFR, ESTIMATEDon 06-26-2024 GFR/1.73 sq M.predicted MDRD (S/P/Bld) [Vol rate/Area] 86 mL/min/{1.73_m2} Normal >60 [facility] Comment on above: Pediatric calculator link https://www.kidney.org/professionals/kdoqi/gfr_calculatorped Effective Apr 23, 2022 These results are not intended for use in patients <18 years of age. eGFR results are calculated without a race factor using the 2020 CKD-EPI equation. Careful clinical correlation is recommended, particularly when comparing to results calculated using previous equations. The CKD-EPI equation is less accurate in patients with extremes of muscle mass, extra-renal metabolism of creatinine, excessive creatine ingestion, or following therapy that affects renal tubular secretion. Performed at [facility] [address] [place] [address] Result Comment: Den atric calculator link https://www.kidney.org/professionals/kdoqi/gfr_calculatorped Effective Apr 23, 2022 These results are not intended for use in patients <18 years of age. eGFR results are calculated without a race factor using the 2020 CKD-EPI equation. Careful clinical correlation is recommended, particularly when comparing to results calculated using previous equations. The CKD-EPI equation is less accurate in patients with extremes of muscle mass, extra-renal metabolism of creatinine, excessive creatine ingestion, or following therapy that affects renal tubular secretion. Performed By: #### H H, BMP, ANION, EGFR1 #### [facility] [address] [place] [address] INR Coag (PPP) [Relative ezio e]on 06-26-2024 [facility] [employer] ([email or web address]) No Panel Informationon 06-26 [facility] [employer] PROTHOMBIN TIMEon 06-26-2024 INR Coag (Bld) [Relative time] 1.05 {INR} Normal 0.85-1.13 [facility] Comment on above: Result Comment: ---- -----INDICATION INR Reference Range DVT, PE, AF, AMI, tissue heart valve 2.0 to 3.0 Mechanical prosthetic valves 2.5 to 3.5 Performed By: #### H H, BMP, ANION, EGFR1 #### [facility] [address] [place] [address] [employer]Ron 06-26-2024 INR Coag (PPP) [Relative time] 1.05 {INR} 0.85 - 1.13 [facility] Comment on above: ---------INDICATION- INR Reference Range DVT, PE, AF, AMI, tissue heart valve 2.0 to 3.0 Mechanical prosthetic valves 2.5 to 3.5 Performed at [facility] [address] [place] [address] XR Chest 2 Viewson 4 Normal chest. No acute findings. This report has been created using voice recognition software. It may contain minor errors which are inherent in voice recognition technology. Electronically signed by Dr. Sly Doran [facility] Sly Quintanilla MD - 06/26/2024 PROCEDURE: XR CHEST (2 VW) CLINICAL INFORMATION: Encounter for other preprocedural examination COMPARISON: No prior study. TECHNIQUE: PA and lateral views of the chest were obtained. IMPRESSION: Normal chest. No acute findings. This report has been created using voice recognition software. It may contain minor errors which are inherent in voice recognition technology. Electronically signed by Dr. Sly Doran [facility] Radiology Study observation (narrative) [facility] XR Chest 2 ViewsOrdered By: Sly Doran on 06-26-2024 [facility] Work Phone: aPTT Coag (Bld) [Time]on aPTT Coag (PPP) [Time] 33.2 s [facility] Comment on above: Therapeutic Heparin Reference Range= 60-95 seconds (corresponds to 0.3 to 0.7 u/mL Anti-Xa factor activity) Performed at [facility] [address] [place] [id number] [place] [address] Urology Office/Clinic Noteon 06-10-2024 Urology Office/Clinic Note Urology Office/Clinic Note Chief Complaint 2-3 mth f/u w/ PVR HPI Staff 58yr old male pt here for 2mo f/u with PVR. Previous Dx: BPH with urinary obstruction, feeling of incomplete bladder emptying, increased PSA velocity, ED *tamsulosin 0.4mg Dysuria: _no Incomplete bladder emptying: _yes Hematuria: _no Frequency: _q2-3 hrs Urgency: _yes Nocturia: _2x Stream: _normal Leaking: _no Post void dripping: _no Wearing pads/ Depends: _no Urge incontinence: _no Stress incontinence: _no Incontinence without Sensory Awareness: _no Abdominal pain: _no Flank pain: _no Sexual complaints: _ History of Present Illness Tests reviewed: reviewed UA and PVR. I have reviewed the previous health record information and history for this patient from . I have reviewed and verified the staff HPI to be accurate for this encounter. There have been no associated fever, chills, flank pain, or blood in the urine. Denies any urinary infections since last encounter. Review of Systems PHQ Score Initial [...] HPI. Physical Exam Vitals & Measurements HR: 62(Peripheral) BP: 134/82 HT: 76 in HT: 192 cm WT: 119.2 kg WT: 262.791 lb BMI: 32.34 General Appearance: alert, no distress, well nourished, well developed male. Assessment/Plan 58 yo male initially referred by Berta Herrera NP for frequency, here for 2 mos f/u with PVR due to feeling of incomplete emptying after recent UroLift. Hx of DM. Last A1C 11/22/23 - 6.1 06/22/23 BMP - BUN 23.0 Crea 0.92 eGFR >60 1. BPH with urinary obstruction (N40.1: Benign prostatic hyperplasia with lower urinary tract symptoms) S/p Cysto/TRUS 01/16/24 - Moderate bilobar prostatic hyperplasia w/o intravesical median lobe. Mildly elevated bladder neck. 1+ trabeculations. Prostate volume 25 mL. S/p UroLift 02/10/24 (6 implants). IPSS 12 (12), QoL 2 (1). Taking Tamsulosin 0.4mg qd. UA today negative for blood and infection. Voiding every few hours. Nocturia improved significantly. Urgency, frequency improved. Main issue is feeling of incomplete emptying, see #2 Shares he has held his urine up to 5 hours as he does not have as much as before. Only issue is feeling of incomplete emptying. Pt states that he voids every 3 hours or so, advised pt to try not to wait longer than 3 hours, this will make it harder to empty. Discussed d/c the Tamsulosin to see if he notices a difference, pt states he would like to do this, does not like meds in general. Counseled pt on behavioral and dietary changes to help with his urinary sxs. Follow up in 1 yr w/PVR. All questions/concerns were discussed. Pt to call the office if he encounters any issues prior. Pt acknowledges understanding. -d/c Tamsulosin, see #2 -Cont timed voids q3hrs 2. Feeling of incomplete bladder emptying (R39.14: Feeling of incomplete bladder emptying) PVR (cc): 12/03/23 - 14 04/01/24 - 118 06/10/24 - 46 Does not feel he is emptying as well. Denies any pain in scrotum/perineum. PVR improved. Discussed how likely secondary pathology if continues such as OAB, bladder decompensation over time, pt's anatomy, dietary habits -D/c Tamsulosin. -Behavioral modifications, avoid bladder irritants 3. Increased prostate specific antigen (PSA) velocity (R97.20: Elevated prostate specific antigen [PSA]) PSA: 05/06/23 - 1.66 11/22/23 - 2.22 No known family hx of prostate cancer. Cont routine PSA monitoring with PCP 4. ED (erectile dysfunction) (N52.9: Male erectile dysfunction, unspecified) ALKA 22 (23). Not bothersome enough to warrant tx at this time. Follow-up With When Contact Information Elmer GÓMEZ, Maura Torres, URL, URO In 1 year Additional Instructions: w/PVR Patient Education Benign Prostatic Hyperplasia IDo, personally scribed for Dr. Payne on 06/10/2024 09:44:29. . Documentation recorded by the scribeDo, accurately reflects the services(s) I performed and decisions made by me. Authenticated by Dr. Payne on 06/10/2024 09:51:03. Problem List/Past Medical History Ongoing BPH with urinary obstruction ED (erectile dysfunction) Feeling of incomplete bladder emptying Gout Hyperlipidemia Hypertension Increased prostate specific antigen (PSA) velocity Type 2 diabetes mellitus Historical Elevated PSA Procedure/Surgical History Total knee arthroplasty (2022), Total knee arthroplasty (2021), Herni (more content not included)... Normal [facility] Comment on above: Result Comment: Elec tronically Signed By: Maura Payne MD\.br\Date and Time Signed: 06/10/24 09:51 EST\.br\Electronically Co-Signed By: Do Gay\.br\Date and Time Co-Signed: 06/10/24 09:44 EST US Eye+Orbit - bilateralon 1 Diagnosis: Cataract both eyes (OU) Testing Indication: Performed for preop measurements in the determination of an intraocular lens (IOL) for both eyes (OU) Test Reliability: Good quality both eyes (OU) Interpretation: Good measurements for intraocular lens (IOL) calculation purposes. Calculation made for both eyes (OU). [facility] Study observation (narrative) [facility] Ambulatory Visit Summaryon 0 04-01-2024 Ambulatory Visit Summary Ambulatory Visit Summary JUAN FRANCISCO CARMEN :1965 Visit Date:04/01/2024 Ambulatory Visit Instructions Your [...] Maura Payne MD Where: [facility] [address] [place] [address]- You Need to Schedule the Following Appointments Follow Up with Maura Payne MD, URL, URO When: Comments: 2 mos w/ PVR Where: [address] [place] [phone] Medications What When Instructions Unchanged allopurinol (allopurinol [...] medical h (more content not included)... Normal [facility] Urology Office/Clinic Noteon 04-01-2024 Urology [...] Elmer GÓMEZ, Maura Torres, URL, URO [address], [place] [phone] Additional Instructions: 2 mos w/ PVR Patient Education Benign Prostatic Hyperplasia I, Roberta Frederick, personally scribed for Dr. Payne on 04/01/2024 09:46:11. . Documentation recorded by the scribe, Roberta Frederick, accurately reflects the services(s) I performed and [...] Brother. Immunizations (more content not included)... Normal [facility] Comment on above: Result Comment: Elec tronically Signed By: Maura Payne MD\.br\Date and Time Signed: 04/01/24 10:00 EDT\.br\Electronically Co-Signed By: Roberta Frederick\.br\Date and Time Co-Signed: 04/01/24 09:46 EDT Inpatient Patient Summaryon 02-10-2024 Inpatient Patient Summary Inpatient Patient Summary [place] [address] Clinical Summary Person Information Name: JUAN FRANCISCO CARMEN Age: 58 Years : 1965 Sex: Male PCP: BERTA HERRERA CNP Marital Status: Unknown Race: White Ethnicity: Non- or Language: Israeli Visit Id: Visit Reason: BPH WITH URINARY OBSTRUCTION Speciality: Acuity: Enc Type: Outpatient Med Service: Surgery Arrival: 02/10/2024 08:51:44 Discharge: Dispo Type: Address: [address] [place] [address] [phone] Provider Notes: Diagnosis: BPH with urinary obstruction; [...] Immunizations Documented This Visit Final Med List: acetaminophen-hydroc odone (Rodney 325 mg-5 mg oral tablet) 1 Tablets [...] Payne MD Follow up: With: Address: When: Maurajie Payne [address], [place] [phone] Business (1) [address], [place] [address], [facility] [address] [place] [phone] Business (1) Comments: Office to schedule follow up in 1 month with PVR Patient Education Information: Lue - Urolift Post-Op Instructions (CUSTOM) [facility] Main OR Intraoperative Recor don 02-10-2024 Main OR Intraoperative Record Main OR Intraoperative Record IntraOp Document Type FTURO Summary Primary Physician: Maura Payne MD Finalized Date/Time: 02/10/24 10:18:57 Pt. Name: JUAN FRANCISCO CARMEN/Sex: 1965 Male Med Rec #: [id number] Physician: Maura Payne MD Financial #: [id number] Pt. Type: O Room/Bed: / Admit/Disch: 02/10/24 08:51:44 - Institution: Case Times FTURO Entry 1 Patient Times In Room 02/10/24 09:52:00 Out Room 02/10/24 10:17:00 Procedure Times Start 02/10/24 10:04:00 Stop 02/10/24 10:12:00 Anesthesia Times Last Modified By: Hien Dutta 02/10/24 10:18:30 Case Attendance FTURO Entry 1 Entry 2 Entry 3 Case Attendee Maura Payne MD, Kelsie E McClain [facility] [email or web address]]Sanam Role Performed Surgeon - Primary Thickener Operator - Primary Scrub - Primary Time In 02/10/24 09:52:00 07/22/24 09:52:00 02/10/24 09:52:00 Time Out 02/10/24 10:17:00 [...] Implant Implant Identification Description UROLIFT Lot Number [id number] Field Specialist UROLIFT Catalog ?# UL2-C Expiration Date 04/03/25 [...] Dutta 02/10/24 10:18 Hien Dutta 02/10/24 10:18 [facility] Main OR Preoperative Recordo n 07-22-2024 Main OR Preoperative Record Main OR Preoperative Record Holding Area Document Type FTURO Summary Primary Physician: Maura Payne MD Finalized Date/Time: 02/10/24 10:04:13 Pt. Name: JUAN FRANCISCO CARMEN.O.B./Sex: 1965 Male Med Rec #: [id number] Physician: Maura Payne MD Financial #: [id number] Pt. Type: O Room/Bed: / Admit/Disch: 02/10/24 [...] Complaints of Pain: No Skin Integrity Intact, [place], Warm, & Dry Vitals - EU Blood Pressure 147/88 Pulse 69 bpm Respirations 20 br/min SPO2 97 % Additional None RN Reviewed Yes Specimens Collected Last Modified By: Hien Dutta 02/10/24 09:56:57 Finalized By: Hien Dutta Document Signatures Signed By: Lona Banks LPN 02/10/24 09:22 Lona Banks LPN 02/10/24 09:22 Hien Dutta 02/10/24 10:04 Normal [facility] Operative Reporton 4 Operative Report Operative Report Patient: JUAN FRANCISCO CARMEN Age: 58 years Sex: Male : 1965 Associated Diagnoses: None Author: Maura Payne MD Procedure Operative Information Details: Date/ Time: 02/10/2024 10:26:00. Pre-Op Dx: BPH w/ LUTS - N40.1. Post-Op Dx: Same. Anesthesia Type: Local. Procedure: Cystoscopy with UroLift Prostatic Urethral Lift. Complications: None. Risks/Benefits/Infor med Consent: Surgical risks, benefits, details of the [...] up in 1 month for PVR. Normal [facility] Comment on above: Result Comment: Elec tronically Signed By: Maura Payne MD\.br\Date and Time Signed: 02/10/24 10:28 EDT Outpatient Surgery Discharge Instructionon 02-10-2024 Outpatient Surgery Discharge Instruction Outpatient Surgery Discharge Instruction [address] [address] Patient Discharge Instructions PERSON INFORMATION Name: JUAN FRANCISCO CARMEN Date of : 1965 Current Date: 02/10/2024 10:18:22 PHYSICIANS Admitting Physician: Maura Payne MD Comment: Discharge Diagnosis: BPH with urinary obstruction; Other obstructive and reflux uropathy MARIO ALBERTODORISJUAN FRANCISCO M has been given the following list of follow-up instructions, prescriptions, and patient education materials: IF UNABLE TO CONTACT YOUR PHYSICIAN AND YOU FEEL IT IS AN EMERGENCY, GO TO THE NEAREST EMERGENCY ROOM OR CALL 911 Follow up: With: Address: When: Maura Payne [address] [place] [phone] [facility] (1) [address] [place] [address], [place] [address], [address] [address] [phone] Business (1) Comments: Office to schedule follow up in 1 month with PVR Comment: PATIENT EDUCATION INFORMATION Instructions: [facility] [place], [place] Post-Operative Instructions for UroLift After your [...] your partner. This will resolve with time. Frequency/urgency/bu rning with urination is very common. This is [...] twist motio (more content not included)... Normal [facility] Consent for Procedure/Surger yon 12-19-2023 Consent for Procedure/Surgery [id number]# 1.00TIFF [facility] Physician Referralon 024 Physician Referral [id number]# 1.00TIFF [facility] Screenson 12-04-2023 Screens [id number] 0#1.00TIFF [facility] Urology Office/Clinic Noteon 12-03-2023 Urology Office/Clinic [...] been obtained. Will order Local anesthesia. Ordered: 54987 Measure Post Void residual urine and/or bladder capacity by US- non-imaging Urnls Dip Stick Auto w/o Microscopy POC 39234 2. Increased prostate specific antigen (PSA) velocity, [...] GÓMEZ at the time of cysto/TRUS. Ordered: [id number] Measure Post Void residual urine and/or bladder [...] decisions made by me. Authenticated by Estela Cherry PA-C on 12/03/2023 16:02:40. [place], personally scribed for Mimi Cherry PA-C on 12/03/2023 15:53:25. . Problem List/Past Medical History Ongoing BPH with urinary obstruction Elevated PSA Gout Hyperlipidemia Hypertension Historical No qualifying data Procedure/Surgical History Total knee arthroplasty (2022), Total knee arthroplasty (2021), Hernia, Hip replacement, Knee. Medicat (more content not included)... Normal [facility] Comment on above: Result Comment: Elec tronically Signed By: ESTELA CHERRY PA-C\.br\Date and Time Signed: 12/03/23 16:04 EDT\.br\Electronically Co-Signed By: [place].br\Date and Time Co-Signed: 12/03/23 15:55 EDT Neal 03-30-2022 L Specimen: [id number] Received: 03/30/22 Status: TISHA Kimble Num: [id number] Spec Type: Surgical Subm Dr: [place], Tissues: A Hernia Sac (HERNIA SAC) Procedures: HE Stain, Gross/Micro L2 Age/ Patient Sex Location Account Attending Physician Juan Francisco Carmen 56/M [place] [id number] Elmo V[place] DO SPEC NUM: [id number] RECD: 03/30/22 STATUS: TISHA KENDAL NUM: [id number] CINDY: 03/30/22 DR: [place] DO ENTERED: 03/30/[address] [facility] [address]: Marquis [facility] SPEC TYPE: Surgical DEPT: S ORDERED: HE Stain, Gross/Micro L2 ORDERED: HE Stain, Gross/Micro L2 Pathological Diagnosis Hernia sac, resection: Clinical Information Umbilical hernia Gross Description Received in formalin labeled with the patient's name, number and hernia sac is a 5.0 x 3.8 x 1.8 cm aggregate of yellow, lobular, focally hyperemic fat with a yellow, lobular cut surface.. Recycle Driver sections are submitted in one cassette labeled A1. Microscopic Description One glass slide with H E stained material has been examined. The microscopic findings support the above pathologic diagnosis. CPT Codes 89708 Specimen: [id number] Received: 03/30/22 Status: TISHA Kimble Num: [id number] Spec Type: Surgical Subm Dr: [place], Tissues: A Hernia Sac (HERNIA SAC) Procedures: HE Stain, Gross/Micro L2 Patient: Juan Francisco Carmen [id number] (Continued) Signed (signature on file) Tamika Rodriguez MD 04/02/22 105 [facility] Covid-19 PCR (CVDTBH)on SARS-CoV-2 (COVID-19) RNA GEORGIE+probe Ql (Unsp spec) Not detected Normal NOT DETECTED [facility] Comment on above: Result Comment: This test is not yet approved or cleared by the [place] FDA. When there are no FDA-approved or cleared tests available, and other criteria are met, FDA can make tests available under an emergency access mechanism called an Emergency Use Authorization (EUA). The EUA for this test is supported by the [place] of Health and Human Service's (HHS's) declaration [...] consistent with SARS-CoV-2. Performed By: #### [facility] #### [facility] [address] [place] [address] Dr. Renny Patel CBC AUTO DIFFon 01-17-2022 BASO # 0.0 103/ul Normal 0.0-0.1 [facility] Comment on above: Performed By: #### C BC #### [facility] [address] [place] [address] Dr. Renny Patel Basophils/100 WBC (Bld) 0.2 % Normal 0.2-2.0 [facility] Comment on above: Performed By: #### C BC #### [facility] [address] [place] [address] Dr. Renny Patel EO # 0.0 103/ul Normal 0.0-0.7 [facility] Comment on above: Performed By: #### C BC #### [facility] [address] [place] [address] Dr. Renny Patel Eosinophils/100 WBC (Bld) 0.2 % Critically low 0.9-7.[address] [facility] Comment on above: Performed By: #### C BC #### [facility] [address] [place] [address] Dr. Renny Patel Erythrocyte distribution width (RBC) [Ratio] 12.8 % Normal 11.0-15.0 [facility] Comment on above: Performed By: #### C BC #### [facility] [address] [place] [address] Dr. Renny Patel Hematocrit (Bld) [Volume fraction] 45.1 % Normal 42.0-54.0 [facility] Comment on above: Performed By: #### C BC #### [facility] [address] [place] [address] Dr. Renny Patel Hemoglobin (Bld) [Mass/Vol] 14.7 g/dL Normal 14.0-18.[address] [facility] Comment on above: Performed By: #### C BC #### [facility] [address] [place] [address] Dr. Renny Patel IG # 0.03 10e3/ul Normal 0.00-0.03 [facility] Comment on above: Performed By: #### C BC #### [facility] [address] [place] [address] Dr. Renny Patel IG % 0.4 % Normal 0.0-0.5 [facility] Comment on above: Performed By: #### C BC #### [facility] [address] [place] [address] Dr. Renny Patel LYMPH # 1.9 103/ul Normal 1.2-3.[address] [facility] Comment on above: Performed By: #### C BC #### [facility] [address] [place] [address] Dr. Renny Patel Lymphocytes/100 WBC (Bld) 22.8 % Normal 20.5-60.0 [facility] Comment on above: Performed By: #### C BC #### [facility] [address] [place] [address] Dr. Renny Patel MANUAL DIFF REQ NO Normal [facility] Comment on above: Performed By: #### C BC #### [facility] [address] [place] [address] Dr. Renny Patel MCH (RBC) [Entitic mass] 29.1 pg Normal 25.9-34.0 [facility] Comment on above: Performed By: #### C BC #### [facility] [address] [place] [address] Dr. Renny Patel MCHC (RBC) [Mass/Vol] 32.6 g/dL Normal 29.9-35.2 [facility] Comment on above: Performed By: #### C BC #### [facility] [address] [place] [address] [address] Renny Patel MCV (RBC) [Entitic vol] 89.1 fL Normal 80.0-94.0 [facility] Comment on above: Performed By: #### C BC #### [facility] [address] [place] [address] [address] Renny Patel MONO # 0.7 103/ul Normal 0.3-0.8 [facility] Comment on above: Performed By: #### C BC #### [facility] [address] [place] [address] Dr. Renny Patel Monocytes/100 WBC (Bld) 8.4 % Normal 1.7-12.0 [facility] Comment on above: Performed By: #### C BC #### [facility] [address] [place] [address] Dr. Renny Patel NEUT # 5.8 103/ul Normal 1.4-6.5 [facility] Comment on above: Performed By: #### C BC #### [facility] [address] [place] [address] Dr. Renny Patel Neutrophils/100 WBC (Bld) 68.0 % Normal 43.0-75.0 [facility] Comment on above: Performed By: #### C BC #### [facility] [address] [place] [address] Dr. Renny Patel Platelet mean volume (Bld) [Entitic vol] 9.4 fL Critically low 9.5-13.[address] [facility] Comment on above: Performed By: #### C BC #### [facility] [address] [place] [address] Dr. Renny Patel PLT 247 103/ul Normal 150-[address] [facility] Comment on above: Performed By: #### C BC #### [facility] [address] [place] [address] Dr. Renny Patel RBC 5.06 106/ul Normal 4.70-6.10 [facility] Comment on above: Performed By: #### C BC #### [facility] [address] [place] [address] Dr. Renny Patel WBC 8.5 103/ul Normal 4.0-11.0 [facility] Comment on above: Performed By: #### C BC #### [facility] [address] [place] [address] Dr. Renny Patel PROF 14(COMP METB)on 022 Albumin [Mass/Vol] 3.8 g/dL Normal 3.4-5.0 [facility] Comment on above: Performed By: #### U EKVIN, CMP #### [facility] [address] [place] [address] Dr. Renny Patel Albumin/Globulin [Mass ratio] 1.0 {ratio} Normal [facility] Comment on above: Performed By: #### U KEVIN, CMP #### [facility] [address] [place] [address] Dr. Renny Patel ALP [Catalytic activity/Vol] 54 U/L Normal 46-[address] [facility] Comment on above: Performed By: #### U KEVIN, CMP #### [facility] [address] [place] [address] Dr. Renny Patel ALT [Catalytic activity/Vol] 60 U/L Normal 16-[address] [facility] Comment on above: Performed By: #### U KEVIN, CMP #### [facility] [address] [place] [address] Dr. Renny Patel Anion gap [Moles/Vol] 8.7 mmol/L Normal [facility] Comment on above: Performed By: #### U KEVIN, CMP #### [facility] [address] [place] [address] Dr. Renny Patel AST [Catalytic activity/Vol] 22 U/L Normal 15-37 [facility] Comment on above: Performed By: #### U KEVIN, CMP #### [facility] [address] [place] [address] Dr. Renny Patel Bilirubin [Mass/Vol] 0.8 mg/dL Normal 0.2-1.0 [facility] Comment on above: Performed By: #### U KEVIN, CMP #### [facility] [address] [place] [address] Dr. Renny Patel Calcium [Mass/Vol] 9.4 mg/dL Normal 8.5-10.1 [facility] Comment on above: Performed By: #### U KEVIN, CMP #### [facility] [address] [place] [address] [address] Renny Patel Chloride [Moles/Vol] 104 mmol/L Normal 98-107 [facility] Comment on above: Performed By: #### U KEVIN, CMP #### [facility] [address] [place] [address] Dr. Renny Patel CO2 [Moles/Vol] 27.6 mmol/L Normal 21.0-32.0 [facility] Comment on above: Performed By: #### U KEVIN, CMP #### [facility] [address] [place] [address] Dr. Renny Patel Creatinine [Mass/Vol] 0.99 mg/dL Normal 0.70-1.30 [facility] Comment on above: Performed By: #### U KEVIN, CMP #### [facility] [address] [place] [address] Dr. Renny Patel EGFR-AF FAROESE >60 Normal >=60 [facility] Comment on above: Performed By: #### U KEVIN, CMP #### [facility] [address] [place] [address] Dr. Renny Patel EGFR-NON AF FAROESE >60 Normal >=60 [facility] Comment on above: Performed By: #### U KEVIN, CMP #### [facility] [address] [place] [address] Dr. Renny Patel Globulin (S) [Mass/Vol] 3.9 g/dL Normal [facility] Comment on above: Performed By: #### U KEVIN, CMP #### [facility] [address] [place] [address] Dr. Renny Patel Glucose [Mass/Vol] 123 mg/dL Critically high 74-106 [facility] Comment on above: Performed By: #### U KEVIN, CMP #### [facility] [address] [place] [address] [address] Renny Patel Potassium [Moles/Vol] 4.3 mmol/L Normal 3.5-5.1 [facility] Comment on above: Performed By: #### U KEVIN, CMP #### [facility] [address] [place] [address] Dr. Renny Patel Protein [Mass/Vol] 7.7 g/dL Normal 6.4-8.2 [facility] [facility] Comment on above: Performed By: #### U KEVIN, CMP #### [facility] [address] [place] [address] Dr. Renny Patel Sodium [Moles/Vol] 136 mmol/L Normal 136-145 [facility] Comment on above: Performed By: #### U KEVIN, CMP #### [facility] [address] [place] [address] Dr. Renny Patel Urea nitrogen [Mass/Vol] 15.0 mg/dL Normal 7.0-18.0 [facility] Comment on above: Performed By: #### U KEVIN, CMP #### [facility] [address] [place] [address] Dr. Renny Patel Urea nitrogen/Creatinine [Mass ratio] 15.2 mg/mg Normal [facility] Comment on above: Performed By: #### U KEVIN, CMP #### [facility] [address] [place] [address] Dr. Renny Patel URIC ACID SERUMon 01-17-2022 Urate [Mass/Vol] 4.9 mg/dL Normal 3.5-7.2 [facility] Comment on above: Performed By: #### U KEVIN, CMP #### [facility] [address] [place] [address] Dr. Renny Patel Vital Signs Date Time Vital Sign Value Performing Clinician Faci lity 07-02-2024 11:55-0500 Body temperature 98.4 [degF] Cece Xie MD Work Phone: [facility] 07-02-2024 11:55-0500 Diastolic blood pressure 74 mm[Hg] Cece Xie MD Work Phone: [facility] 07-02-2024 11:55-0500 Heart rate 69 /min Cece Xie MD Work Phone: [facility] 07-02-2024 11:55-0500 Respiratory rate 16 /min Cece Xie MD Work Phone: [facility] 07-02-2024 11:55-0500 SaO2% (BldA) [Mass fraction] 97 % Cece Xie MD Work Phone: [facility] 07-02-2024 11:55-0500 Systolic blood pressure 124 mm[Hg] Cece Xie MD Work Phone: [facility] 06-30-2024 11:43-0500 Body height 190.5 cm Cece Xie MD Work Phone: [facility] 06-30-2024 11:43-0500 Body mass index (BMI) [Ratio] 30.87 kg/m2 Cece Xie MD Work Phone: [facility] 06-30-2024 11:43-0500 Body weight 112.04 kg Cece Xie MD Work Phone: [facility] 06-10-2024 09:06-0500 Blood Pressure Location Maura Lujaja [facility] 06-10-2024 09:06-0500 Diastolic blood pressure 82 mm[Hg] Maura Lue [facility] 06-10-2024 09:06-0500 Heart rate 62 /min Maura Elmer [facility] 06-10-2024 09:06-0500 Systolic blood pressure 134 mm[Hg] Maura Lue [facility] 04-01-2024 09:11-0400 Blood Pressure Location Maura Lue [facility] 04-01-2024 09:11-0400 Diastolic blood pressure 86 mm[Hg] Maura Lue [facility] 04-01-2024 09:11-0400 Heart rate 78 /min Maura Lue [facility] 04-01-2024 09:11-0400 Respiratory rate 16 /min Maura Lue [facility] 04-01-2024 09:11-0400 Systolic blood pressure 125 mm[Hg] Maura Lue [facility] 12-03-2023 15:28-0400 Diastolic blood pressure 88 mm[Hg] ESTELA ARIES [facility] 12-03-2023 15:28-0400 Mean blood pressure 108 mm[Hg] ESTELA ARIES [facility] 12-03-2023 15:28-0400 Systolic blood pressure 147 mm[Hg] ESTELA ARIES [facility] 12-03-2023 15:16-0400 Blood Pressure Location ESTELA ARIES [facility] 12-03-2023 15:16-0400 Diastolic blood pressure 83 mm[Hg] ESTELA ARIES [facility] 12-03-2023 15:16-0400 Heart rate 87 /min ESTELA CHERRY [facility] 12-03-2023 15:16-0400 Systolic blood pressure 147 mm[Hg] ESTELA CHERRY [facility] Encounters Encounter Date Encounter Type Care Provider Facility Start: 06-16-2025 ambulatory Maura Payne Facility:[facility] Start: 07-27-2024 End: 07-27-2024 Bamboo flowsheet Marci WHITESIDE Work Phone: [facility] Start: 07-27-2024 End: 07-27-2024 Bamboo flowsheet Marci Ponce PA Work Phone: [facility] Start: 07-27-2024 End: 07-27-2024 ambulatory MARCI PONCE Not Available Start: 07-27-2024 End: 07-27-2024 Office outpatient visit 15 minutes Marci WHITESIDE Work Phone: [facility] Comment on above: Acute pain of right knee (Primary Dx); Acute pain of left knee; History of bilateral knee replacement Start: 06-30-2024 End: 07-02-2024 Evaluation and management of inpatient Cece Xie MD Work Phone: [facility] Comment on above: Lumbar stenosis with neurogenic claudication (Primary Dx) Start: 06-26-2024 End: 06-30-2024 Encounter for preprocedural laboratory examination CECE Duggan [facility] Start: 06-26-2024 Encounter for other preprocedural examination [facility] Start: 06-26-2024 End: 06-26-2024 Preprocedural examination done Str [facility] Work Phone: Start: 06-26-2024 End: 06-30-2024 ambulatory CECE Duggan [facility] Start: 06-26-2024 End: 06-30-2024 Subsequent hospital visit by physician Bren Ruiz Rm [facility] Comment on above: Pre-op evaluation Start: 06-10-2024 End: 06-10-2024 Bamboo flowsheet Jr. Hudson Fisher Stepanic DO Work Phone: [facility] Start: 06-10-2024 End: 06-10-2024 Bamboo flowsheet Jr. Hudson Fisher Stepjewel DO Work Phone: [facility] Start: 06-10-2024 End: 06-10-2024 Patient encounter procedure Maura Payne [facility] Start: 06-10-2024 End: 06-10-2024 Office outpatient visit 15 minutes Jr. Hudson Fisher Stepjewel DO Work Phone: [facility] Comment on above: Lumbar back pain wit h radiculopathy affecting left lower extremity (Primary Dx); Acute pain of left knee; History of left knee replacement Start: 06-10-2024 End: 06-10-2024 ambulatory Maura Payne Facility:[facility] Start: 06-01-2024 End: 06-01-2024 ambulatory IVAN BA Not Available Start: 06-01-2024 End: 06-01-2024 Bamboo flowsheet Ivan Ba DO Work Phone: [facility] Start: 06-01-2024 End: 06-01-2024 Bamboo flowsheet Ivan Ba DO Work Phone: [facility] Start: 05-19-2024 End: 05-19-2024 Bamboo flowsheet Ivan Ba DO Work Phone: [facility] Start: 05-19-2024 End: 05-19-2024 Bamboo flowsheet Ivan Ba DO Work Phone: [facility] Start: 05-19-2024 End: 05-19-2024 ambulatory IVAN BA Not Available Start: 05-19-2024 End: 05-19-2024 Office outpatient new 45 minutes Ivan Ba DO Work Phone: [facility] Comment on above: Age-related nuclear cataract of both eyes (Primary Dx) Start: 05-12-2024 ambulatory Thelma X Orzech Facilit y:[facility] Start: 04-15-2024 End: 04-15-2024 Bamboo flowsheet JrJennifer Fisher Stepanic DO Work Phone: [facility] Start: 04-15-2024 End: 04-15-2024 Bamboo flowsheet Jr. Hudson Fisher Stepanic DO Work Phone: [facility] Start: 04-15-2024 End: 04-15-2024 Office outpatient visit 25 minutes Jr. Hudson Fisher Stepjewel DO Work Phone: [facility] Comment on above: Lumbar back pain wit h radiculopathy affecting left lower extremity (Primary Dx) Start: 04-15-2024 End: 04-15-2024 ambulatory HUDSON VALE Not Available Start: 04-01-2024 End: 04-01-2024 ambulatory Maura Payne Facility:[facility] Start: 04-01-2024 End: 04-01-2024 Patient encounter procedure Maura Payne [facility] Start: 03-11-2024 End: 03-11-2024 Bamboo flowsheet Jr. Hudson Fisher Stepjewel DO Work Phone: [facility] Start: 03-11-2024 End: 03-11-2024 Bamboo flowsheet Jr. Hudson Fisher Stepjewel DO Work Phone: [facility] Start: 03-11-2024 End: 03-11-2024 Office outpatient visit 25 minutes Jr. Hudson Keller DO Work Phone: [facility] Comment on above: Lumbar back pain wit h radiculopathy affecting left lower extremity (Primary Dx) Start: 03-11-2024 End: 03-11-2024 ambulatory HUDSON VALE Not Available Start: 02-10-2024 End: 02-10-2024 ambulatory Maura Payne [facility] Start: 02-10-2024 End: 02-10-2024 Patient encounter procedure Maura Payne [facility] Start: 02-04-2024 End: 02-04-2024 ambulatory MARCI PONCE Not Available Start: 01-30-2024 End: 01-30-2024 ambulatory MICHAEL YIN Not Available Start: 01-20-2024 End: 01-20-2024 ambulatory MICHAEL YIN Not Available Start: 01-15-2024 End: 01-16-2024 ambulatory Maura Payne Facility:[id number] Start: 01-08-2024 End: 01-08-2024 ambulatory MARCI PONCE Not Available Start: 01-07-2024 End: 01-07-2024 ambulatory MICHAEL YIN Not Available Start: 12-24-2023 End: 12-24-2023 ambulatory BLAZE GARCAI Not Available Start: 12-18-2023 End: 12-18-2023 ambulatory BRISSA BARRERA Not Available Start: 12-11-2023 End: 12-11-2023 ambulatory Maura Payne [facility] Start: 12-11-2023 End: 12-11-2023 Off-Site Maura Payne [facility] [place] Start: 12-10-2023 End: 12-10-2023 ambulatory MICHAEL YIN Not Available Start: 12-04-2023 End: 12-04-2023 ambulatory MARCI PONCE Not Available Start: 12-03-2023 End: 12-03-2023 ambulatory BERTA HERRERA Facility:[facility] Start: 12-03-2023 End: 12-03-2023 Patient encounter procedure ESTELA CHERRY [facility] Start: 11-25-2023 ambulatory Maura Payne Facility:[facility] Start: 04-01-2022 Encounter for preprocedural laboratory examination DR ELMO VELA [facility] Start: 03-30-2022 End: 03-30-2022 ambulatory Elmo Vela Facility:[facility] Start: 03-30-2022 End: 03-30-2022 Departed Referred DO Elmo Vela Work Phone: [facility] [place] Start: 03-28-2022 End: 03-29-[address] ELMO VELA Facility:[facility] Start: 03-28-2022 End: 03-29-2022 Encounter for preprocedural laboratory examination DR ELMO VELA Facility:[facility] Start: 03-02-[address] KIARA JARQUIN Fac ility:[facility] Start: 02-28-2022 Encounter for preprocedural cardiovascular examination DR ELMO VELA [facility] Start: 02-27-2022 End: 02-28-2022 Encounter for preprocedural cardiovascular examination DR ELMO VELA Facility:[facility] Start: 02-27-2022 End: 02-28-[address] ELMO VELA Facility:[facility] Start: 01-17-2022 End: 01-18-[address] COLT MICHELLE Facility:[facility] Procedures Date Procedure Procedure Detail Performing Clinician Start: 07-27-2024 Radiologic examinati on knee 1/2 views Marci WHITESIDE Work Phone: Start: 07-27-2024 Radiologic examinati on knee 1/2 views Marci WHITESIDE Work Phone: Start: 07-02-2024 Anion gap [Moles/Vol] S didi ANGELOC Work Phone: Start: 07-02-2024 Basic metabolic pane l calcium total Victor Manuel Munguia Palte PA-C Work Phone: Start: 07-02-2024 GLOMERULAR FILTRATIO N RATE, ESTIMATED Victor Manuel Munguia Palte PA-C Work Phone: Start: 07-01-2024 Anion gap [Moles/Vol] S didi Munguia Palte PA-C Work Phone: Start: 07-01-2024 Basic metabolic pane l calcium total Victor Manuel Hugote PA-C Work Phone: Start: 07-01-2024 GLOMERULAR FILTRATIO N RATE, ESTIMATED Victor Manuel Munguia Palte PA-C Work Phone: Start: 06-30-2024 Radex spine 1 view specify level Cece Xie MD Work Phone: Start: 06-30-2024 End: 06-30-2024 Arthdsis post/posterolatrl/postint erbody lumbar Cece Xie MD Work Phone: Start: 06-30-2024 End: 06-30-2024 Autograft spine surgery local from same incision Cece Xie MD Work Phone: Start: 06-30-2024 End: 06-30-2024 Parrish facetectomy & foramotomy 1 segment lumbar Cece Xie MD Work Phone: Start: 06-30-2024 End: 06-30-2024 CA PARRISH FACETEC/FORAMOT DRG ARTHRD LMBR EA ADDL SGUmair Xie MD Work Phone: Start: 06-30-2024 End: 06-30-2024 CA PARRISH FACETEC/FORAMOT DRG ARTHRD LUMBAR 1 VRT SGM Cece Xie MD Work Phone: Start: 06-30-2024 Antibody screen Cece Xie MD Work Phone: Comment on above: Performed at [facility] [address] [place] [address] Start: 06-30-2024 Blood typing serolog ic abo Matty Huber PA Work Phone: Start: 06-26-2024 Anion gap [Moles/Vol] S inga Xie MD Work Phone: Start: 06-26-2024 Basic metabolic pane l calcium total Cece Xie MD Work Phone: Start: 06-26-2024 GLOMERULAR FILTRATIO N RATE, ESTIMATED Cece Xie MD Work Phone: Start: 06-26-2024 Ecg routine ecg w/le ast 12 lds w/i&r Beatriz Broadalbin SOPHIA Start: 06-26-2024 Radiologic exam ches t 2 views Beatriz Broadalbin SOPHIA Start: 06-26-2024 Methicillin resistan t Staphylococcus aureus (MRSA) DNA [Presence] in Unspecified specimen by GEORGIE with probe detection Cece Xie MD Work Phone: Start: 06-01-2024 End: 06-01-2024 Oph medical xm&eval intermediate estab pt Age-related nuclear cataract of both eyes Ivan Ba DO Work Phone: Comment on above: Age-related nuclear cataract of both eyes (Primary Dx) Start: 05-19-2024 Oph bmtry prtl coher intrfrmtry io lens pwr murali Ivan Ba DO Work Phone: Start: 07-22-2022 Total knee replacement ESTELA ARIES Start: 01-17-[address] SORAYA MICHELLE Comment on above: Performed By: #### P SAD #### [facility] [address] [place] [address] Dr. Renny Patel Start: 07-22-2021 Total knee replacement ESTELA CHERRY Start: 01-08-2019 Colonoscopy Jr. [place] ic DO Work Phone: Herniated structure (morphologic abnormality) ESTELA CHERRY History of operative procedure on knee History of left knee replacement Jr. Hudson Keller DO Work Phone: History of operative procedure on knee History of bilateral knee replacement Marci WHITESIDE Work Phone: Insertion of hip prosthesis ESTELA CHERRY Knee region structur e (body structure) ESTELA CHERRY Plan of Treatment Date Care Activity Detail Author Start: 2038 Respiratory Syncytia l Virus (RSV) or age 60 yrs+ (1 - 1-dose 75+ series) Respiratory Syncytial Virus (RSV) or age 60 yrs+ (1 - 1-dose 75+ series) [facility] Start: 05-09-2033 DTaP/Tdap/Td vaccine (2 - Td or Tdap) DTaP/Tdap/Td vaccine (2 - Td or Tdap) [facility] Start: 01-08-2029 Screening for malign ant neoplasm of colon [facility] Start: 07-25-2026 End: 07-25-2026 Patient encounter procedure 07/25/2026 8:00 AM EST Office [facility] [address] [place] [address] Marci Ponce PA [address] [facility] [address] [place] [address] [facility] Start: 06-10-2025 End: 06-10-2025 Patient encounter procedure 06/10/2025 8:00 AM EST Office Visit [facility] [address] [place] [address] Marci Ponce PA [address] [facility] [address] [place] [address] [facility] Start: 07-27-2024 End: 07-27-2024 Patient encounter procedure 07/27/2024 8:00 AM EST Office Visit [facility] [address] [facility] [address] [place] [address] Marci Ponce, PA [address] [facility] [address] [place] [address] [facility] Start: 06-30-2024 End: 06-30-2024 Admission to same day surgery center 06/30/2024 2:45 PM EST - 06/30/2024 5:39 PM EST Surgery [facility] [address] [place] [address] Cece Xie MD [address] [place] [address] [place] [address] L4-S1 Decompression and Fusion, L4-L5 TLIF [facility] Comment on above: L4-S1 Decompression and Fusion, L4-L5 TLIF Start: 06-30-2024 End: 06-30-2024 Arthdsis post/posterolatrl/posti nterbody lumbar LUMBAR LAMINECTOMY FUSION INSTRUMENTATION POSTERIOR Degeneration of intervertebral disc of lumbar region, unspecified whether pain present 06/30/2024 2:45 PM EST [facility] Start: 06-30-2024 Subsequent hospital visit by physician 06/30/2024 2:45 PM EST Hospital Encounter [facility] [address] [place] [address] Cece Xie MD [address] [place] [address] [facility] Start: 06-10-2024 End: 06-10-2024 Patient encounter procedure [facility] Comment on above: Arrived Start: 06-01-2024 End: 06-01-2024 Patient encounter procedure 06/01/2024 3:15 PM EST Office Visit [facility] [address] [place] [address] Ivan Ba DO [address] [place] [address] [facility] Start: 05-19-2024 End: 05-19-2024 Patient encounter procedure 05/19/2024 9:15 AM EDT Office Visit [facility] [address] [place] [id number] Ivan Ba DO [address] [place] [address] [facility] Start: 04-15-2024 End: 04-15-2024 Patient encounter procedure [facility] Comment on above: Arrived Start: 03-22-2024 COVID-19 Vaccine () COVID-19 Vaccine () [facility] Start: 03-22-2024 Influenza vaccination Influenza Vacc ine (#1) [facility] Start: 03-11-2024 End: 03-11-2024 Patient encounter procedure 03/11/2024 8:00 AM EDT Office Visit [facility] [address] [place] [address] Jr. Hudson Keller, DO [address] [facility] [address] [place] [address] Arrived [facility] Comment on above: Arrived Start: 02-20-2024 Influenza vaccination Flu vaccine (# 1) [facility] Start: 2013 Shingles vaccine (1 of 2) Shingles vaccine (1 of 2) [facility] Start: 2008 Screening for malign ant neoplasm of colon [facility] Start: 1998 Diabetes screen Diabetes screen [facility] Start: 1981 Hepatitis C screening Hepatitis C sc reen [facility] Start: 1978 HIV screening HIV screen [facility] Start: 1975 Depression Screen Depression Screen [facility] Start: 1973 Lipid panel Lipids [facility] Start: 1963 Screening for malign ant neoplasm of colon [facility] End: 07-03-2024 Basic metabolic 2000 panel - Serum or Plasma Basic Metabolic Panel Lab Routine Daily for 3 Days starting 07/01/2024 until 07/03/2024, 2 completed [employer] Comment on above: Daily for 3 Days sta rting 07/01/2024 until 07/03/2024, 2 completed End: 07-03-2024 Hemoglobin and hematocrit, blood Hemoglobin and hematocrit, blood Lab Routine Daily for 3 Days starting 07/01/2024 until 07/03/2024, 2 completed [employer] Comment on above: Daily for 3 Days sta rting 07/01/2024 until 07/03/2024, 2 completed Oxygen therapy [[facility] Data Set] Initiate Oxygen Therapy Protocol Respiratory Care Routine As Needed until discontinued starting 06/30/2024 [employer] Comment on above: As Needed until disc ontinued starting 06/30/2024 Spirometry panel Incentive jan metry Respiratory Care Routine Every 2hr while awake until discontinued starting 06/30/2024 [employer] Comment on above: Every 2hr while awak e until discontinued starting 06/30/2024 Immunizations Immunization Date Immunization Notes Care Provider Shraddha [facility] 05-09-2023 influenza virus vaccine, unspecified formulation ESTELA CHERRY [facility] 05-09-2023 tetanus toxoid, redu daphne diphtheria toxoid, and acellular pertussis vaccine, adsorbed ESTELAALEXA CHERRY [facility] 10-25-2020 SARS-CoV-2 (COVID-19 ) mRNA BNT-162b2 vax ESTELA CHERRY [facility] 10-04-2020 SARS-CoV-2 (COVID-19 ) mRNA BNT-162b2 vax ESTELA CHERRY [facility] 06-03-2018 influenza virus vaccine, unspecified formulation ESTELAALEXA CHERRY [facility] 06-03-2018 seasonal influenza, intradermal, preservative free Jr. Stepanic DO Work Phone: [facility] Payers Date Payer Category Payer Unknown [id number] 2022 Private Health Insurance [id number] 2022 Unknown [facility]MEN MORALES [facility] [id number] 2022-Present [phone] [address] [place] [address] [id number] 2022 Self-pay 1965 Unknown [id number] 2.16.840.1.124563.3.579. 2.593 1963 Unknown [id number] 2.16.840.1.383836.3.579. 2.593 1963 Unknown [id number] 2.16.840.1.152638.3.579. 2.593 1963 Unknown [id number] 2.16.840.1.978713.3.579. 2.593 1963 Unknown [id number] 2.16.840.1.203636.3.579. 2.593 1963 Unknown [id number] 2.16.840.1.811842.3.579. 2.727 1963 Unknown [id number] 2.16.840.1.524188.3.579. 2.727 1963 Unknown [id number] 2.16.840.1.726089.3.579. 2.727 1963 Unknown [id number] 2.16.840.1.474286.3.579. 2.727 1963 Unknown [id number] 2.16.840.1.071422.3.579. 2.727 1963 Unknown [id number] 2.16.840.1.907728.3.579. 2.727 1963 Unknown [id number] 2.16.840.1.281681.3.579. 2.727 1963 Unknown [id number] 2.16.840.1.729212.3.579. 2.93 1963 Unknown [id number] 2.16.840.1.130953.3.579. 2.93 1963 Unknown [id number] 2.16.840.1.067414.3.579. 2.93 1963 Unknown [id number] 2.16.840.1.606686.3.579. 2.93 1963 Unknown [id number] 2.16.840.1.372674.3.579. 2.1258 1963 Unknown [id number] 2.16.840.1.736815.3.579. 2.1258 1963 Unknown [id number] 2.16.840.1.142967.3.579. 2.1258 1963 Unknown [id number] 2.16.840.1.405438.3.579. 2.1258 1963 Unknown [id number] 2.16.840.1.517674.3.579. 2.9 1963 Unknown [id number] 2.16.840.1.288681.3.579. 2.1258 1963 Unknown [id number] 2.16.840.1.323363.3.579. 2.1258 1963 Unknown [id number] 2.16.840.1.104448.3.579. 2.1258 1963 Unknown [id number] 2.16.840.1.458272.3.579. 2.9 1963 Unknown [id number] 2.16.840.1.054653.3.579. 2.1258 1963 Unknown [id number] 2.16.840.1.668864.3.579. 2.9 1963 Unknown [id number] 2.16.840.1.531420.3.579. 2.9 1963 Unknown [id number] 2.16.840.1.030805.3.579. 2.9 1963 Unknown [id number] 2.16.840.1.729532.3.579. 2.9 1963 Unknown [id number] 2.16.840.1.648998.3.579. 2.9 1963 Unknown [id number] 2.16.840.1.984575.3.579. 2.9 1963 Unknown [id number] 2.16.840.1.794533.3.579. 2.9 1963 Unknown [id number] 2.16.840.1.090965.3.579. 2.9 1963 Unknown [id number] 2.16.840.1.311066.3.579. 2.9 1963 Unknown [id number] 2.16.840.1.924719.3.579. 2.9 1963 Unknown [id number] 2.16.840.1.096166.3.579. 2.1259 1959 Unknown [id number] Unknown [id number] 2.16.840.1.415560.3.579. 2.531 Unknown [id number] Social History Date Type Detail Facility [facility] Work Phone: Start: 1965 Sex Assigned At Male F [facility] Start: 12-28-2022 End: 12-03-2023 Tobacco smoking status Never smoked tobacco (finding) [facility] Tobacco smoking status Never [facility] Start: 04-15-2024 End: 06-01-2024 Sex Assigned At Male [facility] Start: 12-28-2022 End: 06-26-2024 Tobacco use and exposure Smokeless tobacco non-user [facility] Start: 04-15-2024 End: 07-27-2024 Alcoholic beverage intake Current drinker of alcohol (finding) [facility] Start: 04-15-2024 End: 06-01-2024 History of Social function [facility] Start: 05-31-2023 Alcohol Comment caffeine intak e:2-3 cups/day [facility] Start: 1965 Sex assigned at Not on file [facility] Start: 10-03-2022 Gender identity Identifies as male gender (finding) [facility] Start: 06-26-2024 Alcohol Comment socially [facility] Medical Equipment Procedure Code Equipment Code Equipment Origin al Text Equipment Identifier Dates System Seal 5ml Spine Dura Hydrgel Polyeth Glycol - [id number] , [id number] FDA Start: 06-30-2024 Set Screw 5.5-6. 0 - [id number] Start: 06-30-2024 Screw Poly Solid 7.5x45 - [id number] Start: 06-30-2024 Screw Poly Solid 7.5x50 - [id number] Start: 06-30-2024 Gene Ti Prebent 5.5x60 - [id number] Start: 06-30-2024 Gene Ti Prebent 5.5x65 - [id number] Start: 06-30-2024 Functional Status Date Assessment Result Facility 06-10-2024 Functional Status N/A [facility] 04-01-2024 Functional Status N/A [facility] 02-10-2024 Functional Status N/A [facility] 12-03-2023 Functional Status N/A [facility] Clinical Notes 12-03-2023 to 07-27-2024 STEVO Al - 07/27/2024 8:00 AM ESTBehrnsRosa, [employer] - 07/02/2024 4:55 PM Stephanie Bush, PT - 07/02/2024 11:19 AM Stephanie Reyna, OT - 07/02/2024 10:40 AM ESTDischarge Instructions Note Date & Type Note Facility 07-27-2024 History of Present illness Narrative Images from the original note were not included. HISTORY OF PRESENT ILLNESS: EST PT Juan Francisco Carmen is an 59 y.o. @ male. (L) KNEE (EST PT) HERE FOR YEARLY CHECK OF (L) TKA 05/16/23 (~14 MONTHS) XRAYS DONE TODAY, 07/27/24 IN [facility] NO BONE SCAN LABS, 02/04/24 @ [facility] (CBC / CRP / SED RATE) S/P PREDNISONE 02/04/24 S/P MDP 12/04/23, 07/01/23 FINSIHED PHYSICAL THERAPY ; POST-OP NOTES SOME SORENESS - LATERAL ASPECT / IT BAND. NOTES GOOD ROM ; DENIES ANY INSTABILITY / WEAKNESS. DENIES ANY SWELLING. NO PAIN MEDS. NOTES RECENT L1 / S4-5 DECOMPRESSION & FUSION 07/10/24 - DR XIE PREVIOUS (R) TKA 06/20/22 & (R) STACY 11/20/22 - DR KELLER (R) KNEE (EST PT) HERE FOR YEARLY CHECK OF (R) TKA 06/20/22 (~2YRS) XRAYS DONE TODAY, 07/27/24 IN [facility] NO BONE SCAN LABS, 02/04/24 @ [facility] (CBC / CRP / SED RATE) S/P MDP 08/22/22 DOING WELL. DENIES ANY CURRENT DISCOMFORT. NOTES GOOD ROM ; DENIES ANY CURRENT INSTABILITY / WEAKNESS. DENIES ANY SWELLING. NO PAIN MEDS. PREVIOUS (L) TKA 05/16/23 & (R) STACY 11/20/22 - DR KELLER ALLERGIES: No Known Allergies HOME MEDICATIONS: Current Outpatient Medications Medication Instructions allopurinol (ZYLOPRIM) 150 mg, Oral, Daily amLODIPine (NORVASC) 10 mg, Oral, Daily RT amLODIPine (NORVASC) 5 mg, Daily amoxicillin (Amoxil) 500 MG tablet 4 tabs PO once 30-60 mins before procedure with food atorvastatin (LIPITOR) 20 mg, Oral, Daily RT esomeprazole (NexIUM) [address] capsule 1 tablet Oral one or 2 times weekly lisinopril 20 mg, Oral, Daily pravastatin (PRAVACHOL) 40 mg, Oral, Daily tamsulosin (FLOMAX) 0.4 mg, Oral, Daily PHYSICAL EXAM: Knee Musculoskeletal Exam Gait Gait is normal. Inspection Leg length disparity: no discrepancy Right Erythema: none Effusion: none Edema: none Ecchymosis: none Deformity: none Alignment: normal Previous incision: anterolateral Incision: well-healed Left Erythema: none Effusion: none Edema: none Ecchymosis: none Deformity: none Alignment: normal Previous incision: anterior Incision: well-healed Palpation Right Right knee palpation is unremarkable. Increased warmth: none Masses: none Tenderness: none Left Left knee palpation is unremarkable. Increased warmth: none Masses: none Tenderness: none Range of Motion Right Right knee range of motion is normal and full. Left Left knee range of motion is normal and full. Strength Right Right knee strength is normal. Extension: 5/5. Flexion: 5/5. Left Left knee strength is normal. Extension: 5/5. Flexion: 5/5. Instability Right Instability signs: none - stable Varus stress grade: normal Valgus stress grade: normal Left Instability signs: none - stable Varus stress grade: normal Valgus stress grade: normal Neurovascular Right Right knee neurovascular exam is normal. Pulses - PT: normal Posterior tibial: 2+ Capillary refill: warm and well-perfused Left Left knee neurovascular exam is normal. Pulses - PT: normal Posterior tibial: 2+ Capillary refill: warm and well-perfused Special Signs Right Right knee special signs are normal. Patellar apprehension: none Left Left knee special signs are normal. Patellar apprehension: none General Constitutional: appears stated age Labored breathing: no Psychiatric: normal mood and affect Neurological: alert Skin: intact Lymphadenopathy: none Vitals: There is no height or weight on file to calculate BMI. Tobacco Use: Low Risk (07/27/2024) Patient History Smoking Tobacco Use: Never Smokeless Tobacco Use: Never Passive Exposure: Not on file Alcohol Use: Not on file IMAGING: XR knee 1 or 2 views right Imaging Result: AP and Lateral of right knee: Surgical position and alignment of prosthetic components without evidence of loosening or wear to femora, tibial or patellar components, The alignment appears to be anatomic. No evidence of accelerated or asymmetric wear to tibial tray or patella button. No evidence of fracture or dislocation. Impression: Unremarkable right total knee arthroplasty XR knee 1 or 2 views left Imaging Result: AP and Lateral of left knee: Surgical position and alignment of prosthetic components without evidence of loosening or wear to femora, tibial or patellar components, The alignment appears to be anatomic. No evidence of accelerated or asymmetric wear to tibial tray or patella button. No evidence of fracture or dislocation. Impression: Unremarkable left total knee arthroplasty Procedures Orders Placed This Encounter Procedures XR knee 1 or 2 views right Order Specific Question: Reason for exam: Answer: POST-OP XR knee 1 or 2 views left Order Specific Question: Reason for exam: Answer: POST-OP ASSESSMENT: ICD-10-CM 1. Acute pain of right knee M25.561 XR knee 1 or 2 views right 2. Acute pain of left knee M25.562 XR knee 1 or 2 views left 3. History of bilateral knee replacement Z96.653 Assessment & Plan 1. Followup of bilateral total knee arthroplasties. He is doing well. X-rays were discussed at bedside. He notes both legs feel weak with less stamina. He recently had back surgery and is still in recovery mode. He reports minimal tingling to the bottoms of his feet but does not endorse any radicular symptoms. He was previously dealing with pain in the left leg, which has mostly resolved. He will follow up in 2 years for repeat x-rays of bilateral knees and right hip. 2. Right lateral hip discomfort. He notes some mild right lateral hip discomfort. He does not endorse any fall or injury. Currently recommend ice and a topical Voltaren gel. Consider x-ray or possible hip bursa injection if symptoms persist. PROCEDURE The patient underwent bilateral total knee arthroplasties. Questions answered in laymen terms at the bedside. The diagnosis, home exercise plan and any ongoing restrictions/ recommendations reviewed. If unable to be reached in office, I recommend evaluation at nearest Emergency Room if any symptoms worsened or new symptoms develop for requiring urgent evaluation. documented in this encounter [facility] 07-02-2024 History of Present illness Narrative Went over AVS with pt and took all his belongings with him. Took pt down stairs via wheelchair. No concerns at this time. [facility] INPATIENT PHYSICAL THERAPY EVALUATION [facility] 7K - 7K-05/005-A Discharge Recommendations: Home with assist PRN Equipment Recommendations: No Time In: 1101 Time Out: 1122 Timed Code Treatment Minutes: 13 Minutes Minutes: 21 Date: 07/02/2024 Patient Name: Juan Francisco Carmen, Gender: male : 1965 (59 y.o.) Referring Practitioner: Victor Manuel Blood PA-C Diagnosis: Lumbar stenosis with neurogenic claudication Additional Pertinent Hx: Pt is s/p L4-S1 decompression and fusion completed by Dr. Walters on 06/30 Restrictions/Precautions: Restrictions/Precautions: Fall Risk, General Precautions, Surgical Protocols Spinal Precautions: No Bending, No Twisting, No Lifting Other Position/Activity Restrictions: monitor for VILLEDA's Required Braces or Orthoses?: Yes Spinal: Lumbar Corset Subjective: Chart Reviewed: Yes Patient assessed for rehabilitation services?: Yes Family/Caregiver Present: No Subjective: Ok to see pt per nursing. Pt in bedside chair when PT arrived, pleasant and agreeable to PT session. General: Overall Orientation Status: Within Normal Limits Orientation Level: Oriented X4 Vision: Within Functional Limits Hearing: Within functional limits Pain: 5/10: low back Vitals: Vitals not assessed per clinical judgement, see nursing flowsheet Social/Functional History: Lives With: Spouse Type of Home: House Home Layout: Two level, Able to Live on Main level with bedroom/bathroom, Performs ADL's on one level Home Access: Stairs to enter with rails Entrance Stairs - Number of Steps: 3 KAYDEN Entrance Stairs - Rails: Both Home Equipment: Walker - Rolling Bathroom Shower/Tub: Walk-in shower Bathroom Equipment: Safety frame, Toilet raiser, Grab bars in shower Prior Level of Assist for ADLs: Independent Prior Level of Assist for Homemaking: Independent Homemaking Responsibilities: Yes Meal Prep Responsibility: Secondary Laundry Responsibility: Secondary Cleaning Responsibility: Secondary Prior Level of Assist for Transfers: Independent Has the patient had two or more falls in the past year or any fall with injury in the past year?: No 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 Pt had brace applied in sitting at arrival Bed Mobility: Not Tested Educated on log roll technique Transfers: Sit to Stand: Stand By Assistance, X 1 Stand to Sit:Supervision, X 1 RW for support as needed, no LOB, slow transitions. Pt educated on car transfer technique Ambulation: Stand By Assistance, X 1 Distance: community distances Surface: Level Tile Device: Rolling Walker Gait Deviations: Slow Berta, Decreased Step Length Bilaterally, and Decreased Gait Speed Slow pace initially and then gradually improved with further gait distances Stairs: Stairs: 6 steps X 4 using Bilateral Handrails and Stand By Assistance. Reciprocal step pattern, slow/guarded pace Exercise: None, educated on HEP and amb frequency Functional Outcome Measures: [facility] (6 CLICK) BASIC MOBILITY [facility] Inpatient Mobility Raw Score : 18 [facility] Inpatient T-Scale Score : 43.63 Modified [place]: Premorbid Functional Status: Not Applicable Current Functional Status: Not Applicable ASSESSMENT: Activity Tolerance: Patient tolerance of treatment:Good. Treatment Initiated: Treatment and education initiated within context of evaluation. Evaluation time included review of current medical information, gathering information related to past medical, social and functional history, completion of standardized testing, formal and informal observation of tasks, assessment of data and development of plan of care and goals. Treatment time included skilled education and facilitation of tasks to increase safety and independence with functional mobility for improved independence and quality of life. Assessment: Body Structures, Functions, Activity Limitations Requiring Skilled Therapeutic Intervention: Decreased functional mobility , Increased pain, Decreased endurance, Decreased tolerance to work activity Assessment: Juan Francisco Carmen is a 59 y.o. male who presents with the deficits stated previously. Pt requires 1 person assist for functional tasks with use of walker for support. Pt cont to require skilled PT services to increase IND with functional tasks and progress towards PLOF to return to home environment safely. Therapy Prognosis: Good Requires PT Follow-Up: Yes Patient Education: . Patient Education Education Given To: Patient Education Provided: Role of Therapy, Plan of Care, Precautions, Mobility Training, Equipment Education Method: Verbal Education Outcome: Verbalized understanding, Demonstrated understanding, Continued education needed Plan: Current Treatment Recommendations: Strengthening, Balance training, Functional mobility training, Gait training, Neuromuscular re-education, Transfer training, Stair training, Patient/Caregiver education & training, Therapeutic activities, Safety education & training, Home exercise program, Equipment evaluation, education, & procurement, Endurance training General Plan: (3-5x O) Goals: Patient Goals : return home, possibly today Short Term Goals Time Frame for Short Term Goals: by discharge Short Term Goal 1: Pt will amb for community distances with LRAD to return home safely. Short Term Goal 2: Pt will demo IND with sit to/from stand transfers with LRAD to return home safely. Short Term Goal 3: Pt will demo IND with stair negotiation with rail for support to return home safely. Long-Term Goals Time Frame for Long-Term Goals : NA due to short ELOS Following session, patient left in safe position with all fall risk precautions in place. Pt in bedside chair following session, all needs and call light in reach. [facility] INPATIENT OCCUPATIONAL THERAPY [facility] 7K EVALUATION Discharge Recommendations: Home with assist PRN Equipment Recommendations: No Time In: 0905 Time Out: 0954 Timed Code Treatment Minutes: 39 Minutes Minutes: 49 Date: 07/02/2024 Patient Name: Juan Francisco Carmen, Gender: male : 1965 (59 y.o.) Referring Practitioner: Victor Manuel Blood PA-C Diagnosis: Lumbar stenosis with neurogenic claudication Additional Pertinent Hx: Pt with refractory back and left leg pain from degenerative disc disease and lumbar stenosis from L4-S1. Patient has failed full conservative therapy including medication management, physical therapy, and chiropractic treatment. Due to the persistence of symptoms and reduction in the ADLs, patient elected surgical treatment. Pt is S/P L4-S1 decompression and fusion on 06/30/24. Restrictions/Precautions: Restrictions/Precautions: Fall Risk, General Precautions Required Braces or Orthoses Spinal: Lumbar Corset Position Activity Restriction Spinal Precautions: No Bending, No Twisting, No Lifting Subjective Chart Reviewed: Yes, Orders, Progress Notes Subjective: Nurse approved OT eval. Pt in bed on OT arrival, A+Ox4. Very pleasant and agreeable to OOB activity. Pt reports he slept good last night and is feeling much better than yesterday. Pain: does not rate during session Vitals: Vitals not assessed per clinical judgement, see nursing flowsheet Social/Functional History: Lives With: Spouse Type of Home: House Home Layout: Two level, Able to Live on Main level with bedroom/bathroom, Performs ADL's on one level Home Access: Stairs to enter with rails Entrance Stairs - Number of Steps: 3 KAYDEN Home Equipment: Walker - Rolling Bathroom Shower/Tub: Walk-in shower Bathroom Equipment: Safety frame, Toilet raiser, Grab bars in shower Prior Level of Assist for ADLs: Independent Prior Level of Assist for Homemaking: Independent Homemaking Responsibilities: Yes Prior Level of Assist for Transfers: Independent Has the patient had two or more falls in the past year or any fall with injury in the past year?: No 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 In standing at the sink. Pt washes face, hands, and brushes his teeth without LOB or reports of feeling light-headed. Upper Extremity Dressing: Supervision and with set-up. To don t-shirt from sitting. Cues provided to complete in sitting to reduce risk for fall Lower Extremity Dressing: Minimal Assistance. Pt able to don underwear from sitting without LHAE. Pt able to dangle clothing infront of him. Some assist with long pants required for threading 2nd LE. Able to manage over hips in standing without assist. Footwear Management: Maximum Assistance. Toileting: Stand By Assistance. Toilet Transfer: Stand By Assistance. From standard toilet. Pt reports he has a riser and hand rails around his toilet . BALANCE: Sitting Balance: Modified Independent. Standing Balance: Stand By Assistance. With RW BED MOBILITY: Supine to Sit: Stand By Assistance TRANSFERS: Sit to Stand: Contact Guard Assistance, X 1, with increased time for completion, cues for hand placement, with verbal cues. Stand to Sit: Contact Guard Assistance, X 1, with increased time for completion, cues for hand placement, with verbal cues. FUNCTIONAL MOBILITY: Assistive Device: Rolling Walker Assist Level: Contact Guard Assistance initially progressing to Stand By Assistance. Pt reports this is his first time standing since surgery and required increased time to adjust in standing initially. Distance: To and from bathroom and Within room Activity Tolerance: Patient tolerance of treatment: Good treatment tolerance Assessment: Assessment: Juan Francisco Carmen is a 59 y.o.male that presents with above new performance deficits secondary to L4-S1 decompression and fusion . Pt is requiring increased assistance for ADLs, functional mobility, ADL transfers compared to baseline level of function. Skilled OT services is warranted to improve above performance deficits and progress pt towards PLOF. Without OT pt is at risk for falls, further decline in functional abilities, increased caregiver burden, increased risk for medical complication as a result of reduce mobility and inability to return to prior level of living. Performance deficits / Impairments: Decreased functional mobility , Decreased ADL status, Decreased endurance, Decreased strength, Decreased safe awareness, Decreased high-level IADLs, Decreased balance Prognosis: Good REQUIRES OT FOLLOW-UP: Yes Decision Making: Medium Complexity Treatment Initiated: Treatment and education initiated within context of evaluation. Evaluation time included review of current medical information, gathering information related to past medical, social and functional history, completion of standardized testing, formal and informal observation of tasks, assessment of data and development of plan of care and goals. Treatment time included skilled education and facilitation of tasks to increase safety and independence with ADL's for improved functional independence and quality of life. Patient Education: Patient Education Education Given To: Patient Education Provided: Equipment;Transfer Training;Precautions;Role of Therapy;Plan of Care Education Provided Comments: Education provided on use of LHAE for LB dressing as well as spinal precautions and maintaining during ADLs. Pt demos understanding and denies need for LHAE. Pt reports he does not feel like he needs a shower chair as he did not use one after his knee or hip replacements. Education on assuring shower bottom is not slippering by using anti skid strips provided. Pt does have grab bar. Pt verbalizes agreement. Education Method: Demonstration;Verbal Barriers to Learning: None Education Outcome: Verbalized understanding;Demonstrated understanding Plan: . See long-term goal time frame for expected duration of plan of care. If no long-term goals established, a short length of stay is anticipated. Goals: Following session, patient left in safe position with all fall risk precautions in place. Department of Orthopedic Surgery Spine Service Attending Progress Note Subjective: POD#2 Patient doing well. Laying in bed. Denies headache. Denies N/V. No BM Vitals VITALS: BP 127/63 Pulse 71 Temp 97.9 F (36.6 C) (Oral) Resp 18 Ht 1.905 m (6' 3 ) Wt 112 kg (247 lb) SpO2 94% BMI 30.87 kg/m 24HR INTAKE/OUTPUT: Intake/Output Summary (Last 24 hours) at 07/02/2024 0633 Last data filed at 07/02/2024 0521 Gross per 24 hour Intake 2240 ml Output 3147 ml Net -907 ml URINARY CATHETER OUTPUT (Mares): [REMOVED] Urinary Catheter 06/30/24 Pqeqh-Peyndxitpvf-Shjbyo (mL): 1300 mL DRAIN/TUBE OUTPUT: Closed/Suction Drain Inferior;Left Back Accordion-Output (ml): 20 ml PHYSICAL EXAM: Orientation: alert and oriented to person, place and time Incision: dressing in place, clean, dry, intact Lower Extremity Motor : quadriceps, extensor hallucis longus, dorsiflexion, plantarflexion 5/5 bilaterally Lower Extremity Sensory: Intact L1-S1 Flatus: positive ABNORMAL EXAM FINDINGS: none LABS: HgB: Lab Results Component Value Date/Time HGB 14.1 07/02/2024 05:47 AM ASSESSMENT AND PLAN: Post operative day 2 status post L4-S1 decompression and fusion 1: Monitor labs and drain output 2: Activity Level: activity as tolerated 3: Pain Control: good 4: Discharge Planning: pending, today if patient has BM Victor Manuel D. Palte, PA-C Patient able to sit bedside without complication. Mares removed at patient request. Patient tolerated well. Monitor. [facility] OCCUPATIONAL THERAP[facility] MISSED TREATMENT NOTE [facility] 7K [id number] Date: 07/01/2024 Patient Name: Juan Francisco Carmen CSN: [id number] : 1965 (59 y.o.) Gender: male Referring Practitioner: Victor Manuel Blood PA-C Diagnosis: Degeneration of Intervetebral Disc of Lumbar Region REASON FOR MISSED TREATMENT: Hold treatment per nursing request. ABEL Alvarez reports pt on bedrest today with order to Bring HOB up 15 degrees every 2 hours until sitting up. If patient develops a headache then lay flat. Will check back tomorrow. Patient states he takes nexium daily. Patient also states he no longer takes cipro eye drops. He also states his ketorolac eye drops are 4 x daily and his prednisolone drops are BID. Discussed with Dr. Bynum. See orders for changes to eye drops and to start protonix. Monitor. INTERNAL MEDICINE Progress Note 07/01/2024 1:41 PM Subjective: Admit Date: 06/30/2024 PCP: Alejandro Gimenez MD Interval History: Back pain better No legs weakness No VILLEDA Objective: Vitals: BP 126/74 Pulse 76 Temp 98.4 F (36.9 C) (Oral) Resp 16 Ht 1.905 m (6' 3 ) Wt 112 kg (247 lb) SpO2 96% BMI 30.87 kg/m General appearance: alert and cooperative with exam HEENT: Head: atraumatic Neck: no adenopathy, no carotid bruit, and no JVD Lungs: clear to auscultation bilaterally Heart: S1, S2 normal Abdomen: soft, non-tender; bowel sounds normal; no masses, no organomegaly Extremities: no edema, redness or tenderness in the calves or thighs Neurologic: Mental status: Alert, oriented, thought content appropriate Medications: Scheduled Meds: dexAMETHasone 10 mg IntraVENous Q8H pantoprazole 40 mg Oral QAM AC allopurinol 100 mg Oral Daily amLODIPine 5 mg Oral Daily ketorolac 1 drop Right Eye TID lisinopril 20 mg Oral Daily pravastatin 40 mg Oral Daily prednisoLONE acetate 1 drop Right Eye TID sodium chloride flush 5-40 mL IntraVENous 2 times per day acetaminophen 650 mg Oral Q6H sennosides-docusate sodium 1 tablet Oral BID bisacodyl 5 mg Oral Daily polyethylene glycol 17 g Oral Daily Continuous Infusions: sodium chloride sodium chloride 125 mL/hr at 06/30/24 1832 Lab Results: CBC: Recent Labs 07/01/24 0603 HGB 14.5 BMP: Recent Labs 07/01/24 0603 NA 134* K 4.4 CL 101 CO2 21* BUN 13 CREATININE 0.8 GLUCOSE 158* Assessment and Plan: Lumbar spinal stenosis with neurogenic claudication Status post L4-S1 bilateral laminectomy and posterior spinal fusion. Hypertension. HLD. Continue postoperative care, bowel regimen. SCDs. Cont meds PT/OT Flavia Bynum MD, [facility] PHYSICAL THERAP[facility] MISSED TREATMENT NOTE [facility] 7K Date: 07/01/2024 Patient Name: Juan Francisco Carmen : 1965 (59 y.o.) Gender: male REASON FOR MISSED TREATMENT: Hold treatment per nursing request. Antonio, ABEL reports pt on bedrest today with order to Bring HOB up 15 degrees every 2 hours until sitting up. If patient develops a headache then lay flat. Will check back tomorrow. Bridget Quinones, MPT [id number] Patient sat up to 15 degrees. Patient tolerated well 0930: Patient up to 30 degrees. Patient tolerated well. 1200: patient sat up to 40 degrees with lunch. Patient tolerating well. Patient states back pain 7/10 but very little neck pain/headache. Monitor. Department of Orthopedic Surgery Spine Service Attending Progress Note Subjective: POD#1 Patient c/o cervical and mid back pain. Patient also reports a headache, but notes it is more in the neck right now. Denies leg pain. Denies N/V. No BM Vitals VITALS: BP 133/75 Pulse 86 Temp 98.1 F (36.7 C) (Oral) Resp 16 Ht 1.905 m (6' 3 ) Wt 112 kg (247 lb) SpO2 96% BMI 30.87 kg/m 24HR INTAKE/OUTPUT: Intake/Output Summary (Last 24 hours) at 07/01/2024 0648 Last data filed at 07/01/2024 0433 Gross per 24 hour Intake 2160 ml Output 2412 ml Net -252 ml URINARY CATHETER OUTPUT (Mares): Urinary Catheter 06/30/24 Qznao-Fomlieolyga-Rnpfbb (mL): 1500 mL DRAIN/TUBE OUTPUT: Closed/Suction Drain Inferior;Left Back Accordion-Output (ml): 5 ml PHYSICAL EXAM: Orientation: alert and oriented to person, place and time Incision: dressing in place, clean, dry, intact Lower Extremity Motor : quadriceps, extensor hallucis longus, dorsiflexion, plantarflexion 5/5 bilaterally Lower Extremity Sensory: Intact L1-S1 Flatus: positive ABNORMAL EXAM FINDINGS: none LABS: HgB: Lab Results Component Value Date/Time HGB 14.5 07/01/2024 06:03 AM ASSESSMENT AND PLAN: Post operative day 1 status post L4-S1 decompression and fusion 1: Monitor labs and drain output 2: Activity Level: Bring HOB up 15 degrees every 1-2 hours. If patient develops a headache then lay flat. 3: Pain Control: will increase Flexeril to TID. Decadron ordered. 4: Discharge Planning: pending Victor Manuel Blood PA-C Patient called out stating he Is now having extreme pain in is neck and head. He believes it to be spinal headache. Pt. Has been bed rest, flat, all night. Dr. Interiano notified of this and ordered to give Fioricet 1 tablet. Pt admitted to [facility] by bed. Complaints: surgery. IV normal saline infusing into the hand right, condition patent and no redness at a rate of gravity mls/ hour with about 100 mls in the bag still. IV site free of s/s of infection or infiltration. Vital signs obtained. Assessment and data collection initiated. Two nurse skin assessment performed by Marcela ROMAN and Laura KLEIN. Oriented to room. Explained patients right to have family, renewals representative or physician notified of their admission. Patient has Declined for physician to be notified. Patient has Declined for family/renewals representative to be notified. The patient is interested in [facility] Yes Policies and procedures for explained. All questions answered with no further questions at this time. Fall prevention and safety brochure discussed with patient. Bed alarm on. Call light in reach. 1635- Pt to pacu. Pt responsive. Appropriate. VSS. Pt reports pain. Pt appears in no acute distress. 1642- pt reporting pain, not tolerable, medicated per orders;. VSS 1654- pt reports pain not improving. Continue to medicate per order. VSS 1703 VSS. Pt continues to report pain not improving. 1710- pt reports pain improving slightly. VSS. 1721- pt resting in bed eyes closed, VSS 1724- report called to nurse Alarcon 1730- pt meets criteria for discharge from pacu. VSS 1735-Transport arrives to take pt to 05 in stable condition. [facility] has already sent family to room. Patient oriented to Same Day department and admitted to Same Day Surgery room 16. Patient verbalized approval for first name, last initial with physician name on unit whiteboard. Plan of care reviewed with patient. Patient room whiteboard filled out and discussed with patient and responsible adult. Patient and responsible adult offered Same Day Welcome Packet to review. Call light in reach. Bed in lowest position, locked, with one bed rail up. SCDs and warming blanket in place. Appropriate arm bands on patient. Bathroom offered. All questions and concerns of patient addressed. Meds to Beds: Patient informed of [facility] program during admission. Patient is agreeable to program. Contact information for the pharmacy and the Meds to Beds program: Name: Jimmy Relationship to patient:spouse/significant other Phone number: [phone] Late Entry: left message for MIKHAIL [facility] on 06/29/24 requesting for pre-op clearance. Await call back. PAT VISIT Appointment reminder call given Date: 06/26 Arrival time: 13:30 and location; 1st [facility] Bring Drivers license and insurance Bring Medications in original bottles Please be ready to give Urine Sample If possible bring caregiver for appointment Take am medications with water unless you are holding any for surgery Appointment may last 2 hours documented in this encounter [facility] 07-02-2024 Hospital Discharge instructions Bill Davis RN - 07/02/2024 11:32 AM EST Back Surgery Activity No lifting, pushing, or pulling Up as tolerated at least 3-4 times per day. Up walking-helps to decrease the risk of blood clots Wear israel hose as directed per your physician No driving until cleared by your physician Back Brace or abdominal binder If your physician prescribes a brace/abdominal binder, wear back brace at all times. May remove when in bed or bathing Follow all back precautions. Incision Care Keep back incision dry and intact. Apply clean dry dressing once a day AFTER DRAIN IS REMOVED BY HOME HEALTH May shower if no drainage from your incision-unless otherwise directed per your physician No tub baths-no soaking of incision-no swimming No heaving lifting of more than 5 lbs/or as directed per your physician Diet Increase Fluid/Water intake, eat foods high in fiber; fruits and vegetables to help to prevent constipation Examples of foods high in fiber Vegetables All vegetables, especially asparagus, rodriguez sprouts, broccoli, Gueydan sprouts, cabbage, carrots, cauliflower, celery, corn, greens, green beans, green pepper, onions, peas, potatoes (with skin), snow peas, spinach, squash, sweet potatoes, tomatoes, zucchini For maximum fiber intake, eat the peels of fruits and vegetables just be sure to wash them well first. Fruits All fruits, especially apples, berries, grapefruits, mangoes, nectarines, oranges, peaches, pears, dried fruits (figs, dates, prunes, raisins) Choose raw fruits and vegetables over juice, cooked, or canned raw fruit has more fiber. Dried fruit is also a good source of fiber. Some of the common symptoms of a surgical site infection are: Symptoms in the area where the surgery took place: Redness Drainage Pus Pain Swelling Bad smell Prevention of surgical site infection: Make sure that your healthcare providers clean their hands before examining you - either with soap and water or an alcohol-based hand rubs. Family and friends who visit you should not touch the surgical wound or dressings. Family and friends should clean their hands with soap and water or an alcohol-based hand rub before and after visiting you. If you do not see them clean their hands, ask them to clean their hands. Wash hands frequently Do not allow pet to sleep in the bed with you until your incision is completely healed. Keep bed sheets clean If you are taking medications, follow these general guidelines: Take your medication as directed. Do not change the amount or the schedule. Do not stop taking them without talking to your doctor. Do not share them. Know what the results and side effects are. Report them to your doctor. Some drugs can be dangerous when mixed. Talk to a doctor or pharmacist if you are taking more than one drug. This includes cguk-nat-fyqxmko medication and herb or dietary supplements. Plan ahead for refills so you do not run out. Call Your Doctor If Any of the Following Occurs It is important for you to check your recovery once you leave the hospital. That way, you can alert your doctor to any problems immediately. If any of the following occur, call your doctor: Signs of infection, including fever, chills, redness, swelling, increasing pain, excessive bleeding, or discharge from the incision site The stitches or reji come apart at the incision site Nausea and/or vomiting that you can't control with the medications you were given after surgery, or which persist for more than two days after discharge from the hospital Pain that you can't control with the medications you've been given Cough shortness of breath, or chest pain Joint pain, fatigue, stiffness, rash, or other new symptoms Numbness, tingling, pain, or weakness, especially in the arms, hands, legs, or feet Pain, swelling in your feet, legs, or calves Loss of bladder or bowel function Pain, burning, urgency, frequency of urination, or persistent blood in the urine In case of an emergency call 911 Refer to medication education sheets for general information and possible side effects Bill Thompson RN - 07/02/2024 11:34 AM EST Take medications as directed Bill Thompson RN - 07/02/2024 11:34 AM EST Activity as tolerated Bill Thompson RN - 07/02/2024 11:34 AM EST Good nutrition is important when healing from an illness, injury, or surgery. Follow any nutrition recommendations given to you during your hospital stay. If you were given an oral nutrition supplement while in the hospital, continue to take this supplement at home. You can take it with meals, in-between meals, and/or before bedtime. These supplements can be purchased at most local grocery stores, pharmacies, and chain super-stores. If you have any questions about your diet or nutrition, call the hospital and ask for the dietitian. Regular Diet Increase fluid and fiber intake to prevent constipation Bill Davis RN - 07/02/2024 2:07 PM EST documented in this encounter [facility] 06-30-2024 Note PROCEDURE: XR LUMBAR SPINE 1 VW CLINICAL INFORMATION: surgery COMPARISON: No prior study. TECHNIQUE: Single crossfire lateral view of the lumbar spine was obtained. FINDINGS: Single intraoperative crossfire view of the lumbar spine was performed. Posterior fusion hardware is demonstrated extending from L4-S1. The visualized surgical hardware appears grossly intact. The osseous framework appears grossly unremarkable. Please refer to operative report for further details. [facility] 06-30-2024 Note PROCEDURE: XR LUMBAR SPINE 1 VW CLINICAL INFORMATION: surgery COMPARISON: No prior study. TECHNIQUE: Single crossfire lateral view of the lumbar spine was obtained. FINDINGS: Single intraoperative crossfire view of the lumbar spine was performed. Posterior fusion hardware is demonstrated extending from L4-S1. The visualized surgical hardware appears grossly intact. The osseous framework appears grossly unremarkable. Please refer to operative report for further details. IMPRESSION: 1. Single intraoperative crossfire view of the lumbar spine was performed. Posterior fusion hardware is demonstrated extending from L4-S1. The visualized surgical hardware appears grossly intact. The osseous framework appears grossly unremarkable. Please refer to operative report for further details. This report has been created using voice recognition software. It may contain minor errors which are inherent in voice recognition technology. Electronically signed by Dr. Syed Tidwell Interpreted by: Jordan Tidwell MD Signed by: Jordan Tidwell MD 06/30/24 Final result [facility] 06-26-2024 Note PROCEDURE: XR CHEST (2 VW) CLINICAL INFORMATION: Encounter for other preprocedural examination COMPARISON: No prior study. TECHNIQUE: PA and lateral views of the chest were obtained. [facility] 06-26-2024 Note PROCEDURE: XR CHEST (2 VW) CLINICAL INFORMATION: Encounter for other preprocedural examination COMPARISON: No prior study. TECHNIQUE: PA and lateral views of the chest were obtained. IMPRESSION: Normal chest. No acute findings. This report has been created using voice recognition software. It may contain minor errors which are inherent in voice recognition technology. Electronically signed by Dr. Sly Doran Interpreted by: Sly Doran MD Signed by: Sly Doran MD 06/26/24 Final result [facility] 06-26-2024 History of Present illness Narrative Images from the original note were not included. Lumbar Spine Surgery Pre-op Instructions Nothing to eat or drink after midnight except sips of water to take medications, this includes no mints, chewing gum or ice chips No Smoking or chewing tobacco 24 hours before surgery Bring your medications in the original bottles Bring photo ID and any health insurance cards Wear comfortable clean loose fitting clothing Do not wear any jewelry, make up, body piercings or contact lenses Bring your walker Bring your back brace if you were given one Bring your CPAP machine if you have one Wear clean clothes to bed and place fresh clean sheets and pillowcases on your bed the night before surgery Patient viewed physical therapy video Routine preop instructions given for pain, hand hygiene, fall prevention, infection prevention, anesthesia, cough and deep breath, and progressive diet and ambulation Showering: Shower 2 days before, day before and morning of surgery using the StartClean kit provided (follow the instructions provided with the kit). Do not shave the surgical area! If needed, your nurse will use clippers to remove any excess hair at the surgical site when you come in for surgery. Do not use a razor on the site of your surgery for at least 2 days prior to surgery because shaving can leave tiny nicks in the skin which may allow germs to enter and cause infection. Perform the exercises given in your booklet 3 times daily starting today Please have 2 Home Health Agencies in mind for post op care; 1st choice and 2nd choice. Remember- Post Op NO BLTS ; No Bending, No Lifting, No Twisting until Dr say its ok. Start Clean Shower Instructions __06/28/24____ (date) FIRST SHOWER: Two days before surgery: Take a shower and wash your entire body, including your hair and scalp in the following manner: Wash your hair using normal shampoo. Make sure you rinse the shampoo from your hair and body. Wash your face with your regular soap or cleanser. Use one of the sponges in the StartClean kit and apply 1/3 of the Chlorhexidine soap to the sponge, wash from your neck down. This is very important. Do not use the soap on your face or hair and avoid private areas. Rinse your body thoroughly. This is very important. Using a fresh, clean towel, dry your body. Dress in freshly washed clothes. Do not use lotions, powders, or creams after this shower. 06/29/24___ (date) SECOND SHOWER: The day before surgery: Take a shower and wash your entire body, including your hair and scalp in the following manner: Wash your hair using normal shampoo. Make sure you rinse the shampoo from your hair and body. Wash your face with your regular soap or cleanser. Use one of the sponges in the StartClean kit and apply 1/3 of the Chlorhexidine soap to the sponge, wash from your neck down. This is very important. Do not use the soap on your face or hair and avoid private areas. Rinse your body thoroughly. This is very important. Using a fresh, clean towel, dry your body. Dress in freshly washed clothes. Fresh clean sheets and pillow cases should be used after this shower. Do not use lotions, powders, or creams after this shower. ___06/30/24 (date) THE FINAL SHOWER: The morning of surgery: Take a shower and wash your entire body, including your hair and scalp in the following manner: Wash your hair using normal shampoo. Make sure you rinse the shampoo from your hair and body. Wash your face with your regular soap or cleanser. Use one of the sponges in the StartClean kit and apply 1/3 of the Chlorhexidine soap to the sponge, wash from your neck down. This is very important. Do not use the soap on your face or hair and avoid private areas. Rinse your body thoroughly. This is very important. Using a fresh, clean towel, dry your body. Dress warmly with freshly washed clean clothes. Keeping warm before surgery decreases your risk of developing and infection. Images from the original note were not included. SURGERY PREPARATION CHECKLIST NAME: DATE OF SURGERY: Enter Dates, Check (?) circles to indicate task is completed. Date MUPIROCIN NASAL OINTMENT BODY CLEANSING DAY 1 Morning Evening Day 2 06/26/24 Morning Evening Day 3 06/27/24 Morning Evening Day 4 06/28/24 Morning Evening Day 5 06/29/24 Morning Evening Day 6 06/30/24 (Day of Surgery) PLEASE COMPLETE and BRING THIS CHECKLIST WITH YOU TO THE HOSPITAL to give to your nurse on the day of surgery. You will be notified if you need to use Mupirocin Nasal Ointment. Preliminary Discharge Planning Questionnaire Date of Surgery 06/30/[address] [facility] Having the proper help and care after surgery is very important to your recovery. Who will be able to help you at home when you are discharged from the hospital? spouse Name(s) Jimmy How many steps to enter your home? 3 Bathroom on first floor? Yes Bedroom on the first floor? Yes Do you have an elevated toilet seat to use at home? Yes Do you have a walker to use at home? Total Joints - with wheels N/A Spine - with wheels Yes Have you been doing home exercises?yes *You will go home with some outpatient physical therapy, where do you prefer to go? [facility] in [facility] This typically will not start until after your post visit to your Dr. (3-4 weeks after surgery) * What home health agency would you like to use?No preference List of all Home Health Agencies Available given to patient, with website ( per Social Work Team) Please have 2 preferences when you come for surgery- 1st and 2nd choice *Cardiac Rehab plans NA Pain note: pt denies pain at visit. Instructed pt on pain management and pain scale. Voiced understanding. Preliminary Discharge Planning Questionnaire Date of Surgery 06/30/[address] [facility] Having the proper help and care after surgery is very important to your recovery. Who will be able to help you at home when you are discharged from the hospital? spouse Name(s) Jimmy How many steps to enter your home? 3 Bathroom on first floor? Yes Bedroom on the first floor? Yes Do you have an elevated toilet seat to use at home? Yes Do you have a walker to use at home? Total Joints - with wheels N/A Spine - with wheels Yes Have you been doing home exercises?yes *You will go home with some outpatient physical therapy, where do you prefer to go? [facility] This typically will not start until after your post visit to your Dr. (3-4 weeks after surgery) * What home health agency would you like to use?no preference List of all Home Health Agencies Available given to patient, with website ( per Social Work Team) Please have 2 preferences when you come for surgery- 1st and 2nd choice *Cardiac Rehab plans NA documented in this encounter [facility] 06-10-2024 Hospital Discharge instructions Patient Education 06/10/2024 09:35:40 Benign Prostatic Hyperplasia Benign Prostatic Hyperplasia Benign [...] urethra. Follow these instructions at home: Take mxjj-xsf-nccctvb and prescription medicines only as told by [...] provider. Document Revised: 01/24/2022 Document Reviewed: 01/24/2022 [employer] Patient Education 2023 [employer]. 06/10/2024 09:13:58 Benign Prostatic Hyperplasia Benign Prostatic Hyperplasia Benign [...] urethra. Follow these instructions at home: Take etdr-wan-snsihhc and prescription medicines only as told by [...] provider. Document Revised: 01/24/2022 Document Reviewed: 01/24/2022 [employer] Patient Education 2023 [employer]. Follow Up Care 04/01/2024 09:44:27 With:Elmer GÓMEZ, Maura Torres URL, U[facility] Address: When:Within 1 Year(s) Comments:w/HARSHAD [facility] 06-10-2024 Note Patient Education Benign Prostatic Hyperplasia Benign prostatic hyperplasia (BPH) [...] or symptoms? Symptoms of this condition include: ??? Getting up often during the night to urinate. ??? Needing to urinate frequently during the day. ??? Difficulty starting urine flow. ??? Decrease in size and strength of your urine stream. ??? Leaking (dribbling) after urinating. ??? Inability to pass urine. This needs immediate treatment. ??? Inability to completely empty your bladder. ??? Pain when you pass urine. This is more common if there is also an infection. ??? Urinary tract infection (UTI). How is this diagnosed? This condition is diagnosed based on your medical history, a physical exam, and your symptoms. Tests will also be done, such as: ??? A post-void bladder scan. This measures any amount of urine that may remain in your bladder after you finish urinating. ??? A digital rectal exam. In a rectal exam, your health care provider checks your prostate by putting a lubricated, gloved finger into your rectum to feel the back of your prostate gland. This exam detects the size of your gland and any abnormal lumps or growths. ??? An exam of your urine (urinalysis). ??? A prostate specific antigen (PSA) screening. This is a blood test used to screen for prostate cancer. ??? An ultrasound. This test uses sound waves [...] severity of your condition. Treatment may include: ??? Observation and yearly exams. This may be the only treatment needed if your condition and symptoms are mild. ??? Medicines to relieve your symptoms, including: ? Medicines to shrink the prostate. ? Medicines to relax the muscle of the prostate. ??? Surgery in severe cases. Surgery may include: [...] the urethra. Follow these instructions at home: ??? Take idqg-hzj-stqmopp and prescription medicines only as told by your health care provider. ??? Monitor your symptoms for any changes. Contact your health care provider with any changes. ??? Avoid drinking large amounts of liquid before going to bed or out in public. ??? Avoid or reduce how much caffeine or alcohol you drink. ??? Give yourself time when you urinate. ??? Keep all follow-up visits. This is important. Contact a health care provider if: ??? You have unexplained back pain. ??? Your symptoms do not get better wi (more content not included)... [facility] 06-10-2024 History of Present illness Narrative Images from the original note were not included. HISTORY OF PRESENT ILLNESS: EST PT Juan Francisco Carmen is an 58 y.o. @ male. (EST PT ; LAST APPT W/ JOCELINE) RECHECK LBP ; S/P DR. XIE CONSULT (SCHEDULED FOR L4-5 FUSION 07/07/24) S/P (L) TKA 05/16/23 (~11 MONTHS) XRAYS, (L) KNEE W/ OBL 02/04/24 IN EPIC XRAYS, L-SPINE W/ FLEX & EXT 12/04/23 IN EPIC XRAY LUMBAR SPINE WITH FLEX/EXT 12/04/23 EPI MRI, L-SPINE 03/05/24 @ [facility] S/P PREDNISONE TAPER 02/04/24, 12/04/23 S/P MDP 03/11/24, 07/01/23 NO L-SPINE CORTISONE INJ FINISHED PHYSICAL THERAPY ; POST-OP TKA NO PAIN MGMT CONTINUES TO HAVE INTERMITTENT DISCOMFORT IN HIS (L) KNEE / LOWER LEG - LATERAL ASPECT ; WORSE WITH PROLONGED STANDING. NOTES BURNING - DENIES ANY N/T. SOME MINIMAL LOWER BACK PAIN. NOTES GOOD ROM ; DENIES ANY WEAKNESS. DENIES ANY CURRENT SWELLING. NO CURRENT PAIN MEDS. PREVIOUS (R) TKA 06/20/22 & (R) STACY 11/20/22 - DR KELLER ALLERGIES: No Known Allergies HOME MEDICATIONS: Current Outpatient Medications Medication Instructions allopurinol (ZYLOPRIM) 150 mg, Oral, Daily amLODIPine (NORVASC) 10 mg, Oral, Daily RT amLODIPine (NORVASC) 5 mg, Daily amoxicillin (Amoxil) 500 MG tablet 4 tabs PO once 30-60 mins before procedure with food atorvastatin (LIPITOR) 20 mg, Oral, Daily RT cephalexin (Keflex) 500 MG capsule TAKE 4 TABLETS BY MOUTH ONE HOUR prior to appointment esomeprazole (NexIUM) [address] capsule 1 tablet Oral one or 2 times weekly ketorolac (Acular) 0.5 % ophthalmic solution 1 drop, Ophthalmic, 2 times daily lisinopril 20 mg, Oral, Daily pravastatin (PRAVACHOL) 40 mg, Oral, Daily tamsulosin (FLOMAX) 0.4 mg, Oral, Daily PHYSICAL EXAM: Spine Musculoskeletal Exam Knee Musculoskeletal Exam Inspection Left Erythema: none Effusion: none Effusion comment: minimal swelling lateral anterior knee, compartments soft. no diffuse effusion Edema: none Ecchymosis: none Deformity: none Alignment: normal Previous incision: anterior Incision: well-healed Palpation Left Left knee palpation is unremarkable. Increased warmth: none Masses: none Crepitus: none Tenderness: present Tenderness comment: Distal IT BAND, Lateral Joint Line, no warmth. no palpable snapping. no peripatella pain or medial joint line pain. Lateral joint line: mild Lateral joint line comment: lateral anterior knee Range of Motion Left Left knee range of motion is normal and full. Active extension: 0 Active flexion: 120 Range of motion additional comments: PAINLESS PROM. Strength Left Left knee strength is normal. Extension: 5/5. Flexion: 5/5. Flexion is affected by pain. Instability Left Instability signs: none - stable Varus stress grade: normal Valgus stress grade: normal Neurovascular Right Right knee neurovascular exam is normal. Patella reflex: 1/4 and hyporeflexic Left Left knee neurovascular exam is normal. Patella reflex: 1/4 and hyporeflexic Capillary refill: warm and well-perfused Neurovascular additional comments: Gross sensation intact pt notes burning/ discomfort posterior lateral alejandro and occ has pain from left lower back to left lower leg L5 , S1 distribution. Lateral knee pain (radiating above and below limiting ability to walk long distance. No prior back disectomy 1990's L5- S1. Special Signs Left Left knee special signs are normal. Patellar apprehension: none Vitals: There is no height or weight on file to calculate BMI. Tobacco Use: Low Risk (06/01/2024) Patient History Smoking Tobacco Use: Never Smokeless Tobacco Use: Never Passive Exposure: Not on file Alcohol Use: Not on file IMAGING: Procedures No orders of the defined types were placed in this encounter. ASSESSMENT: ICD-10-CM 1. Lumbar back pain with radiculopathy affecting left lower extremity M54.16 2. Acute pain of left knee M25.562 3. History of left knee replacement Z96.652 PLAN: We have answered all the patients questions and explained the patients condition, decision making and plan including the risks and benefits associated with said plan in layman''s terms in a language the patient could understand easily. If patient''s symptoms significantly worsen and they cannot get a hold of us or their family physician, we have recommended that the patient proceed to the nearest emergency department (room). Dr. Keller obtained history and examined the patient, I am acting as scribe for Dr. Keller/renan, PLAN: Patient is pleased with his left knee progress as he admits his left knee is better now than it was prior to sx. Patient was referred to Dr. Walters for consult and is scheduled for sx in June for L4/L5 fusion. We have discussed his HEP and restrictions and will see him back in 1 year with joceline to reassess his left knee with repeat xrays. Hudson Keller D.O. documented in this encounter [facility] 06-01-2024 History of Present illness Narrative Images from the original note were not included. Assessment/Plan Images from the original note were not included. Assessment/Plan Diagnoses and all orders for this visit: Age-related nuclear cataract of both eyes - Visually Significant Cataract, OU: I discussed the risks, benefits, alternatives, and expectations of cataract surgery. A complete ophthalmic exam was performed and it was determined that the cataracts were a primary source of vision decline, affecting activities of daily living, necessitating removal. Limited vision post-surgery may occur with pre-existing conditions affecting other areas of the eye or the brain was explained and the patient displayed an understanding. The overall objective is to improve ADLs, not eliminate glasses or restore vision to 20/20. Tests were reviewed - the different lens options were explained including the xtj-iw-xjyhkh fees for any upgrades. Intraocular lens (IOL) selection may be altered either prior to or during the procedure based on the doctor's discretion including reverting to a traditional intraocular lens (IOL). They understood that there will exist the potential of glasses prescription need post surgery for near, distance or possibly both. The patient stated a full understanding and a desire to proceed with the procedure. The patient received cataract measurements and had any additional questions answered. - A complete exam was performed including a physical exam: General: AAOx3 and NAD, Lungs: Clear, Heart: RRR, Abdomen: S/NT/ND, Extremities: no pitting edema. documented in this encounter [facility] 05-19-2024 History of Present illness Narrative Images from the original note were not included. Subjective Patient ID: Juan Francisco Carmen is a 58 y.o. male. Chief Complaint Cataract HPI Cataract In both eyes. Associated symptoms include blurred vision and a need for brighter lights. Severity is moderate. Onset was gradual. Duration of 12 months. Frequency is constant. Context: distance vision, watching TV, driving and dim lighting. Since onset it is gradually worsening. Affected activities include driving, watching TV and daily activities. Treatments tried include no treatments and glasses. Response to treatment was mild improvement. Comments pt has been wearing soft contact lens (CL) for 4 years Pt was referred by Dr. Marcum for Cataract Evaluation. No pain, dryness, vision has declined (distance vision) left eye (OS) >right eye (OD), not using drops. -Latex -Pm/Df +Taking Flomax Last edited by Ivna Ba DO on 05/19/2024 10:14 AM. Current Outpatient Medications (Ophthalmic Agents) Medication Sig Dispense Refill ketorolac (Acular) 0.5 % ophthalmic solution Administer 1 drop into affected eye(s) in the morning and 1 drop before bedtime. 5 mL 1 ofloxacin (Ocuflox) 0.3 % ophthalmic solution Administer 1 drop into affected eye(s) 5 (five) times a day for 1 day Starting 1 day before surgery, continue after surgery as directed 5 mL 1 prednisoLONE acetate (Pred-Forte) 1 % ophthalmic suspension Administer 1 drop into affected eye(s) in the morning and 1 drop at noon and 1 drop in the evening and 1 drop before bedtime. Do all this for 14 days. 5 mL 1 No current facility-administered medications for this visit. (Ophthalmic Agents) Current Outpatient Medications (Other) Medication Sig Dispense Refill amLODIPine (Norvasc) 5 MG tablet Take 5 mg by mouth Daily cephalexin (Keflex) 500 MG capsule TAKE 4 TABLETS BY MOUTH ONE HOUR prior to appointment allopurinol (Zyloprim) 100 MG tablet Take 150 mg by mouth in the morning. amLODIPine (Norvasc) 10 MG tablet Take 10 mg by mouth in the morning. amoxicillin (Amoxil) 500 MG tablet 4 tabs PO once 30-60 mins before procedure with food 4 tablet 3 atorvastatin (Lipitor) 20 MG tablet Take 20 mg by mouth in the morning. esomeprazole (NexIUM) [address] capsule 1 tablet Oral one or 2 times weekly lisinopril 20 MG tablet Take 20 mg by mouth in the morning. pravastatin (Pravachol) 40 MG tablet Take 40 mg by mouth in the morning. tamsulosin (Flomax) 0.4 MG 24 hr capsule Take 0.4 mg by mouth in the morning. No current facility-administered medications for this visit. 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 HENT: Negative. Eyes: Negative. Respiratory: Negative. Cardiovascular: Negative. Gastrointestinal: Negative. Genitourinary: Negative. Musculoskeletal: Negative. Skin: Negative. Neurological: Negative. Psychiatric/Behavioral: Negative. Hematological: Negative. Endocrine: Negative. Allergic/Immunologic: Negative. Objective Base Eye Exam Visual Acuity (Snellen - Linear) Right Left Dist cc 20/25 -2 20/60 Correction: Contacts Tonometry (Applanation, 10:15 AM) Right Left Pressure 14 18 Pupils Pupils Right PERRL Left PERRL Visual Lugo Left Right Full Full Extraocular Movement Right Left Full, Ortho Full, Ortho Neuro/Psych Oriented x3: Yes Dilation Both eyes: 1.0% Mydriacyl @ 9:52 AM Additional Tests Keratometry K1 [place] K2 [place] Right 43.75 058 45.00 148 Left 42.75 117 44.50 028 Slit Lamp and Fundus Exam External Exam Right Left External Rosacea Rosacea Slit Lamp Exam Right Left Lids/Lashes Blepharitis, Dermatochalasis - upper lid, deep set orbits Blepharitis, Dermatochalasis - upper lid, deep set orbits Conjunctiva/Sclera White and quiet White and quiet Cornea Decreased tear film Decreased tear film Anterior Chamber Deep and quiet Deep and quiet Iris Round and reactive Round and reactive Lens 2+ Nuclear sclerosis, 3+ Posterior subcapsular cataract 3+ Nuclear sclerosis, 2+ Posterior subcapsular cataract Anterior Vitreous Normal Normal Fundus Exam Right Left Disc Normal Normal Macula Normal Normal Vessels Normal Normal Periphery Normal Normal Refraction Manifest Refraction (Auto) Sphere Cylinder [place] Right -3.50 -0.50 058 Left -4.50 -1.25 104 Assessment/Plan Diagnoses and all orders for this visit: Age-related nuclear cataract of both eyes Age-related nuclear cataract of both eyes - Visually Significant Cataract, OU: I discussed the risks, benefits, alternatives, and expectations of cataract surgery. A complete ophthalmic exam was performed and it was determined that the cataracts were a primary source of vision decline, affecting activities of daily living, necessitating removal. Limited vision post-surgery may occur with pre-existing conditions affecting other areas of the eye or the brain was explained and the patient displayed an understanding. The overall objective is to improve ADLs, not eliminate glasses or restore vision to 20/20. Tests were reviewed - the different lens options were explained including the top-lz-vpprzw fees for any upgrades. Intraocular lens (IOL) selection may be altered either prior to or during the procedure based on the doctor's discretion including reverting to a traditional intraocular lens (IOL). They understood that there will exist the potential of glasses prescription need post surgery for near, distance or possibly both. The patient stated a full understanding and a desire to proceed with the procedure. The patient received cataract measurements and had any additional questions answered. - A complete exam was performed including a physical exam: General: AAOx3 and NAD, Lungs: Clear, Heart: RRR, Abdomen: S/NT/ND, Extremities: no pitting edema. - Coordination of care will be shared with Dr. Marcum. Cataract Surgery for OS will take place - 06/08 and OD - 06/22. documented in this encounter [facility] 04-15-2024 History of Present illness Narrative Images from the original note were not included. HISTORY OF PRESENT ILLNESS: EST PT Juan Francisco Carmen is an 58 y.o. @ male. (EST PT ; LAST APPT W/ JOCELINE) RECHECK LBP ; S/P MDP 03/11/24 (5WKS) S/P (L) TKA 05/16/23 (~11 MONTHS) XRAYS, (L) KNEE W/ OBL 02/04/24 IN EPIC XRAYS, L-SPINE W/ FLEX & EXT 12/04/23 IN EPIC XRAY LUMBAR SPINE WITH FLEX/EXT 12/04/23 EPI MRI, L-SPINE 03/05/24 @ [facility] S/P PREDNISONE TAPER 02/04/24, 12/04/23 S/P MDP 03/11/24, 07/01/23 NO L-SPINE CORTISONE INJ FINISHED PHYSICAL THERAPY ; POST-OP TKA NO PAIN MGMT NOTES TEMP RELIEF FROM MDP ; CONTINUES TO HAVE INTERMITTENT DISCOMFORT IN HIS (L) KNEE / LOWER LEG - LATERAL ASPECT ; WORSE WITH PROLONGED STANDING. NOTES BURNING - DENIES ANY N/T. SOME MINIMAL LOWER BACK PAIN. NOTES GOOD ROM ; DENIES ANY WEAKNESS. DENIES ANY CURRENT SWELLING. CONTINUES TO TAKE TYLENOL ES PRN - DENIES ANY RELIEF ; NO LONGER ICING. CONTINUES HEP - SOME RELIEF FROM STRETCHING. PREVIOUS (R) TKA 06/20/22 & (R) STACY 11/20/22 - DR KELLER ALLERGIES: No Known Allergies HOME MEDICATIONS: Current Outpatient Medications Medication Instructions allopurinol (ZYLOPRIM) 150 mg, Oral, Daily amLODIPine (NORVASC) 10 mg, Oral, Daily RT amoxicillin (Amoxil) 500 MG tablet 4 tabs PO once 30-60 mins before procedure with food atorvastatin (LIPITOR) 20 mg, Oral, Daily RT esomeprazole (NexIUM) [address] capsule 1 tablet Oral one or 2 times weekly lisinopril 20 mg, Oral, Daily pravastatin (PRAVACHOL) 40 mg, Oral, Daily tamsulosin (FLOMAX) 0.4 mg, Oral, Daily PHYSICAL EXAM: Spine Musculoskeletal Exam Gait Gait is normal. Inspection Thoracolumbar Thoracolumbar inspection is normal. Erythema: none Swelling: none Palpation Thoracolumbar Thoracolumbar palpation is normal. Tenderness: present Right Masses: none Muscle tone: normal Left Masses: none Muscle tone: normal Range of Motion Thoracolumbar Range of motion is normal. Flexion: normal. Extension: normal. Right Lateral bending: normal. Lateral rotation: normal. Left Lateral bending: normal. Lateral rotation: normal. Strength Thoracolumbar Right Extensor hallucis longus: 5/5. Tibialis anterior: 5/5. Tibialis posterior: 5/5. Plantar flexion: 5/5. Peroneals: 5/5. Quadriceps: 5/5. Hamstrin/5. Hip abductors: 5/5. Hip flexion: 5/5. Hip adduction: 5/5. Left Extensor hallucis longus: 5/5. Tibialis anterior: 5/5. Tibialis posterior: 5/5. Plantar flexion: 5/5. Peroneals: 5/5. Quadriceps: 5/5. Hamstrin/5. Hip abductors: 5/5. Hip flexion: 5/5. Hip adduction: 5/5. Sensory Thoracolumbar Thoracolumbar sensation is normal. Spine sensation additional comments: NO FOCAL DEFICIT Reflexes Thoracolumbar reflexes are normal. Right Quadriceps: 2/4 Achilles: 2/4 Clonus: normal Left Quadriceps: 2/4 Achilles: 2/4 Clonus: normal Neurovascular Thoracolumbar Thoracolumbar neurovascular exam is normal. Right Pulses - PT: normal Posterior tibial: 2+ Left Pulses - PT: normal Posterior tibial: 2+ General Constitutional: appears stated age Psychiatric: normal mood and affect Neurological: alert and oriented x3 Skin: intact Vitals: There is no height or weight on file to calculate BMI. Tobacco Use: Low Risk (04/15/2024) Patient History Smoking Tobacco Use: Never Smokeless Tobacco Use: Never Passive Exposure: Not on file Alcohol Use: Not on file IMAGING: Procedures Orders Placed This Encounter Procedures Ambulatory referral to Neurosurgery Dr. Walters @[facility] ; Please call patient to schedule, thank you. Evaluate and treat L-Spine Standing Status: Future Standing Expiration Date: 10/13/2024 Referral Priority: Routine Referral Type: Consultation Referral Reason: Specialty Services Required Requested Specialty: Neurosurgery Number of Visits Requested: 1 ASSESSMENT: ICD-10-CM 1. Lumbar back pain with radiculopathy affecting left lower extremity M54.16 Ambulatory referral to Neurosurgery PLAN: We have answered all the patients questions and explained the patients condition, decision making and plan including the risks and benefits associated with said plan in layman''s terms in a language the patient could understand easily. If patient''s symptoms significantly worsen and they cannot get a hold of us or their family physician, we have recommended that the patient proceed to the nearest emergency department (room). Dr. Keller obtained history and examined the patient, I am acting as scribe for Dr. Keller/[facility], PLAN: We have reviewed prior L-Spine xrays / MRI results. Patient notes that most of his symptoms are noted with prolong standing. After examination today we are recommending a referral to Dr. Walters at [facility] with patients verbal agreeance. We have discussed his HEP and restrictions and will see him back in 8 weeks to discuss consult, pending examination / consult we may recommend a bone scan to r/o prosthetic loosening to his left knee. Hudson Keller D.O. documented in this encounter [facility] 04-01-2024 Hospital Discharge instructions Patient Education 04/01/2024 [...] urethra. Follow these instructions at home: Take vctq-itw-dyedjpt and prescription medicines only as told by [...] provider. Document Revised: 01/24/2022 Document Reviewed: 01/24/2022 [employer] Patient Education 2023 [employer]. Follow Up Care 02/10/2024 10:22:17 With:Elmer GÓMEZ, Maura Torres, DEBRA, URO Address: [facility] [place] [address] [phone] When: Unknown Comments:2 mos w/ [facility] 04-01-2024 Note Patient Education Urology [...] Follow these instructions at home: ? Take mdxp-mrz-jkrbarp and prescription medicines only as told by [...] develop side effec (more content not included)... [facility] 03-11-2024 History of Present illness Narrative Images from the original note were not included. HISTORY OF PRESENT ILLNESS: EST PT Juan Francisco Carmen is an 58 y.o. @ male. (EST PT ; LAST APPT W/ JOCELINE) RECHECK LBP ; HERE FOR L-SPINE MRI RESULTS 03/05/24 @ [facility] & LAB RESULTS 02/04/24 @ [facility] (SED RATE / CRP / CBC) S/P (L) TKA 05/16/23 (~10 MONTHS) XRAYS, (L) KNEE W/ OBL 02/04/24 IN EPIC XRAYS, L-SPINE W/ FLEX & EXT 12/04/23 IN EPIC XRAY LUMBAR SPINE WITH FLEX/EXT 12/04/23 EPI MRI, L-SPINE 03/05/24 @ [facility] S/P PREDNISONE TAPER 02/04/24, 12/04/23 ; POST-OP S/P MDP 07/01/23 ; POST-OP NO L-SPINE CORTISONE INJ FINISHED PHYSICAL THERAPY ; POST-OP TKA NO PAIN MGMT CONTINUES TO HAVE INTERMITTENT DISCOMFORT IN HIS (L) KNEE / LOWER LEG - LATERAL ASPECT ; WORSE WITH PROLONGED STANDING. NOTES BURNING - DENIES ANY N/T . SOME MINIMAL LOWER BACK PAIN. NOTES GOOD ROM ; DENIES ANY WEAKNESS. DENIES ANY CURRENT SWELLING. CONTINUES TO TAKE TYLENOL ES PRN - DENIES ANY RELIEF ; ALSO USES ICE. CONTINUES HEP. PREVIOUS (R) TKA 06/20/22 & (R) STACY 11/20/22 - DR KELLER ALLERGIES: No Known Allergies HOME MEDICATIONS: Current Outpatient Medications Medication Instructions allopurinol (ZYLOPRIM) 150 mg, Oral, Daily amLODIPine (NORVASC) 10 mg, Oral, Daily RT amoxicillin (Amoxil) 500 MG tablet 4 tabs PO once 30-60 mins before procedure with food atorvastatin (LIPITOR) 20 mg, Oral, Daily RT esomeprazole (NexIUM) [address] capsule 1 tablet Oral one or 2 times weekly lisinopril 20 mg, Oral, Daily methylPREDNISolone (Medrol Dospak) 4 MG tablets Follow schedule on package instructions pravastatin (PRAVACHOL) 40 mg, Oral, Daily tamsulosin (FLOMAX) 0.4 mg, Oral, Daily PHYSICAL EXAM: Spine Musculoskeletal Exam Gait Gait is normal. Inspection Thoracolumbar Thoracolumbar inspection is normal. Erythema: none Swelling: none Palpation Thoracolumbar Thoracolumbar palpation is normal. Tenderness: present Right Masses: none Muscle tone: normal Left Masses: none Muscle tone: normal Range of Motion Thoracolumbar Range of motion is normal. Flexion: normal. Extension: normal. Right Lateral bending: normal. Lateral rotation: normal. Left Lateral bending: normal. Lateral rotation: normal. Strength Thoracolumbar Right Extensor hallucis longus: 5/5. Tibialis anterior: 5/5. Tibialis posterior: 5/5. Plantar flexion: 5/5. Peroneals: 5/5. Quadriceps: 5/5. Hamstrin/5. Hip abductors: 5/5. Hip flexion: 5/5. Hip adduction: 5/5. Left Extensor hallucis longus: 5/5. Tibialis anterior: 5/5. Tibialis posterior: 5/5. Plantar flexion: 5/5. Peroneals: 5/5. Quadriceps: 5/5. Hamstrin/5. Hip abductors: 5/5. Hip flexion: 5/5. Hip adduction: 5/5. Sensory Thoracolumbar Thoracolumbar sensation is normal. Spine sensation additional comments: NO FOCAL DEFICIT Reflexes Thoracolumbar reflexes are normal. Right Quadriceps: 2/4 Achilles: 2/4 Clonus: normal Left Quadriceps: 2/4 Achilles: 2/4 Clonus: normal Neurovascular Thoracolumbar Thoracolumbar neurovascular exam is normal. Right Pulses - PT: normal Posterior tibial: 2+ Left Pulses - PT: normal Posterior tibial: 2+ Special Tests Thoracolumbar Left SLR: pain radiates to left leg General Constitutional: appears stated age Psychiatric: normal mood and affect Neurological: alert and oriented x3 Skin: intact Vitals: There is no height or weight on file to calculate BMI. Tobacco Use: Low Risk (03/11/2024) Patient History Smoking Tobacco Use: Never Smokeless Tobacco Use: Never Passive Exposure: Not on file Alcohol Use: Not on file IMAGING: Procedures No orders of the defined types were placed in this encounter. ASSESSMENT: ICD-10-CM 1. Lumbar back pain with radiculopathy affecting left lower extremity M54.16 methylPREDNISolone (Medrol Dospak) 4 MG tablets PLAN: We have answered all the patients questions and explained the patients condition, decision making and plan including the risks and benefits associated with said plan in layman''s terms in a language the patient could understand easily. If patient''s symptoms significantly worsen and they cannot get a hold of us or their family physician, we have recommended that the patient proceed to the nearest emergency department (room). Dr. Keller obtained history and examined the patient, I am acting as scribe for Dr. Keller/renan, PLAN: Patient is pleased with his left knee progress but does admit to lateral aspect pain to his left knee that he feels is most likely coming from his lower back. We have reviewed prior L-Spine xrays and discussed L-Spine MRI and lab results with patient at bedside. After examination today we are recommending a repeat MDP to attempt to decrease the inflammation. We have discussed his HEP and restrictions and will see him back in 5 weeks to reassess his L-Spine, if exam warrants we may recommend a referral to pain management. Hudson Keller D.O. documented in this encounter [facility] 02-10-2024 Hospital Discharge instructions Patient Education 02/10/2024 10:18:20 Lue - Urolift Post-Op Instructions (CUSTOM) [facility] [place], [place] Post-Operative Instructions for UroLift After your [...] Up Care 01/17/2024 10:32:06 With:Maura Payne Address: [address], [place] [address] [phone] Business (1) [address], [address] [place] [address] [phone] Business (1) When: Unknown Comments:Office to schedule follow up in 1 month with [facility] 02-10-2024 Note Patient Education [facility] [place], [place] Post-Operative Instructions for UroLift After your [...] is not empt (more content not included)... [facility] 12-03-2023 Hospital Discharge instructions Patient [...] including vitamins, herbs, eye drops, creams, and ihxg-jsp-plpaqms medicines. Any problems you or family members [...] provider tells you to take them. Taking yzkl-eod-ltfokyu medicines, vitamins, herbs, and supplements. Tests You [...] Follow these instructions at home: Medicines Take cybv-jey-wudbgfs and prescription medicines only as told by [...] provider. Document Revised: 03/21/2022 Document Reviewed: 02/17/2021 [employer] Patient Education 2022 [employer]. 12/03/2023 15:48:35 Benign Prostatic Hyperplasia Benign Prostatic [...] urethra. Follow these instructions at home: Take pzdf-abj-hplkadf and prescription medicines only as told by [...] provider. Document Revised: 01/24/2022 Document Reviewed: 01/24/2022 [employer] Patient Education 2022 [employer]. Follow Up Care 11/25/2023 13:52:08 With:Elmer GÓMEZ, DEBRA Rondon, URO Address: When: Unknown [facility] 12-03-2023 Note Urology Cystoscopy Cystoscopy is a [...] including vitamins, herbs, eye drops, creams, and jtnn-myh-qwjsfgl medicines. ? Any problems you or family [...] tells you to take them. ? Taking nvdy-ymj-fhzxdaw medicines, vitamins, herbs, and supplements. Tests You [...] these instructions at home: Medicines ? Take zoit-thr-vhdbvcy and prescription medicines only as told by [...] the department th (more content not included)... [facility] [facility] Evaluation + Plan note No data available for this section [facility] Evaluation + Plan note Future Appointments Appointment Date:04/01/2024 09:00:00 AM Scheduled Provider:Maura Payne MD Location:[facility] Appointment Type:URO Office Visit [facility] Evaluation + Plan note Future Appointments Appointment Date:06/10/2024 08:45:00 AM Scheduled Provider:Maura Payne MD Location:[facility] Appointment Type:URO Office Visit [facility] Evaluation + Plan note Future Appointments Appointment Date:06/16/2025 08:45:00 AM Scheduled Provider:Maura Payne MD Location:[facility] Appointment Type:URO Office Visit [facility] Evaluation note No assessment inform ation available [facility] Work Phone: Evaluation note Diagnosis Age-related nuclear cataract of both eyes- Primary documented [facility] this encounter [facility]* Diagnosis Age-related nuclear cataract of both eyes- Primary documented in this encounter [facility]* Diagnosis Lumbar back pain with radiculopathy affecting left lower extremity- Primary Acute pain of left knee History of left knee replacement documented in this encounter [facility]* Diagnosis Pre-op evaluation Preoperative examination, unspecified Degeneration of intervertebral disc of lumbar region, unspecified whether pain present [facility] Diagnosis Lumbar stenosis with neurogenic claudication- Primary Spinal stenosis, lumbar region, with neurogenic claudication Lumbar stenosis with neurogenic claudication Spinal stenosis, lumbar region, with neurogenic claudication [facility]* Diagnosis Lumbar back pain with radiculopathy affecting left lower extremity- Primary documented in this encounter [facility] Diagnosis Lumbar back pain with radiculopathy affecting left lower extremity- Primary documented in this encounter [facility]* Diagnosis Acute pain of right knee- Primary Acute pain of left knee History of bilateral knee replacement documented in this encounter [facility] Discharge instructions No data available for this section [facility] note No data available for this section [facility] reason for referral (narrative)* Consultation (Routine) - Authorized Specialty Diagnoses / Procedures Referred By Jase t Referred To Contact Neurosurgery Diagnoses Lumbar back pain with radiculopathy affecting left lower extremity Jr. Hudson Keller DO [address] [address] Cece Xie MD [address] [place] [address] [place] [address] Referral ID Status Reason Start Date Expiration Date Visits Requested Visits Authorized [id number] Authorized Specialty Services Required 04/15/2024 10/12/2024 1 1 [facility] Summary Purpose Family History No Family History Records FoundNo Family History Records Found No data available for this section No data available for this section No data available for this section No data available for this section No data available for this section No Family History Records FoundNo Family History Records FoundNo Family History Records Found Advance Directives No Advanced Directives Records Found Date Activated Date Inactivated Comments 06/30/2024 11:29 AM Date Activated Date Inactivated Comments 06/30/2024 11:29 AM Healthcare Agents on File Name Relationship Healthcare Agent Relationshi p Communication Jimmy Carmen Spouse Primary Decision Maker Additional Source Comments Care Teams (unrecognized sec tion and content) Team Status: Inactive Member Role Status Dates Elmo Vela DO Attending Provider Active Pouncer Relationship Specialty Start Date End Date Colt Michelle MD [address] [place] [address] PCP - General Family Medicine 11/30/22 Pouncer Relationship Specialty Start Date End Date Colt Michelle MD [address] [place] [address] PCP - General Family Medicine 11/30/22 Pouncer Relationship Specialty Start Date End Date Colt Michelle MD [address] [place] [address] PCP - General Family Medicine 11/30/22 Pouncer Relationship Specialty Start Date End Date Colt Michelle MD [address] [place] [facility] [place] [address] PCP - General Family Medicine 11/30/22 Pouncer Relationship Specialty Start Date End Date Colt Michelle MD [address] [place] [facility] [address] PCP - General Family Medicine 11/30/22 Pouncer Relationship Specialty Start Date End Date Colt Michelle MD [address] [place] [facility] [place] [address] PCP - General Family Medicine 11/30/22 Pouncer Relationship Specialty Start Date End Date Alejandro Gimenez MD [address] [place] [address] PCP - General Family Medicine 06/26/24 Pouncer Relationship Specialty Start Date End Date Alejandro Gimenez MD [address] [place] [address] PCP - General Family Medicine 06/26/24 Pouncer Relationship Specialty Start Date End Date Alejandro Gimenez MD [address] [place] [address] PCP - General Family Medicine 06/26/24 Pouncer Relationship Specialty Start Date End Date Alejandro Gimenez MD [address] [place] [address] PCP - General Family Medicine 06/26/24 Pouncer Relationship Specialty Start Date End Date Colt Michelle MD [address] [place] [facility] [address] PCP - General Family Medicine 11/30/22 Pouncer Relationship Specialty Start Date End Date Colt Michelle MD [address] [place] [address] PCP - General Family Medicine 11/30/22 Pouncer Relationship Specialty Start Date End Date Colt Michelle MD [address] [place] [address] PCP - General Family Medicine 11/30/22 Pouncer Relationship Specialty Start Date End Date Colt Michelle MD [address] [place] [address] PCP - General Family Medicine 11/30/22 Goals (unrecognized section and content) Goals may [...] content) DATE CREATED AUTHOR 04/01/2022 [facility] DATE CREATED AUTHOR AUTHOR'S ORGANIZ ATION 04/23/2022 [facility] DATE CREATED AUTHOR AUTHOR'S ORGANIZ ATION 06/12/2024 [facility] DATE CREATED AUTHOR AUTHOR'S ORGANIZ ATION 07/14/2024 [facility] DATE CREATED AUTHOR AUTHOR'S ORGANIZ ATION 08/02/2024 [facility] EPIC Reason for Visit (unrecogniz ed section and content) Reason Comments Cataract Reason Comments Pain Specialty Diagnoses / Procedures Referred By Contac t Referred To Contact Diagnoses Degeneration of intervertebral disc of lumbar region, unspecified whether pain present Degeneration of intervertebral disc of lumbar region, unspecified whether pain present [M51.369] Procedures CA ARTHRODESIS COMBINED TQ 1NTRSPC LUMBAR CA ARTHRODESIS PST/PSTLAT TQ 1NTRSPC EA ADDL NTRSPC CA PARRISH FACETEC/FORAMOT DRG ARTHRD LUMBAR 1 VRT SGM CA PARRISH FACETEC/FORAMOT DRG ARTHRD LMBR EA ADDL SGM CA PARRISH FACETECTOMY & FORAMOTOMY 1 VRT SGM LUMBAR CA POSTERIOR SEGMENTAL INSTRUMENTATION 3-6 VRT SEG CA INSJ BIOMCHN DEV INTERVERTEBRAL DSC SPC W/ARTHRD CA AUTOGRAFT SPINE SURGERY LOCAL FROM SAME INCISION L4-S1 Decompression and Fusion, L4-L5 TLIF L4-S1 Decompression and Fusion, L4-L5 TLIF L4-S1 Decompression and Fusion, L4-L5 TLIF L4-S1 Decompression and Fusion, L4-L5 TLIF L4-S1 Decompression and Fusion, L4-L5 TLIF L4-S1 Decompression and Fusion, L4-L5 TLIF L4-S1 Decompression and Fusion, L4-L5 TLIF L4-S1 Decompression and Fusion, L4-L5 TLIF Cece Xie MD [address] [place] [address] [place] [address] [facility] [id number] [place] [address] Referral ID Status Reason Start Date Expiration Date Visits Re quested Visits Authorized [id number] 1 1 Reason Comments Pain Ordered Prescriptions (unrec ognized section and content) Prescription Sig Dispensed Refills Start Date End Da te cyclobenzaprine (FLEXERIL) 10 MG tablet Take 1 tablet by mouth 3 times daily as needed for Muscle spasms 30 tablet 07/02/2024 07/12/2024 oxyCODONE-acetaminophen (PERCOCET) 5-325 MG per tabletIndications:Lumbar stenosis with neurogenic claudication Take 1 tablet by mouth every 6 hours as needed for Pain for up to 7 days. Intended supply: 7 days. Take lowest dose possible to manage pain Max Daily Amount: 4 tablets 28 tablet 07/02/2024 07/09/2024 Scheduled Active and Recently Administ ered Medications (unrecognized section and content) Medication Order 06/30/2024 07/01/2024 07/02/2024 acetaminophen (TYLENOL) tablet 650 mg 650 mg, Oral, EVERY 6 HOURS, First dose on Sat06/30/24 at 1815, Until Discontinued, Maximum dose of acetaminophen is 4000 mg from all sources in 24 hours., Post-op 1857 (Given - Provider: Marcela Burns RN)2357 (Not Given - Provider: Sierra Mckeon RN - Reason: Patient/family refused) 0521 (Given - Provider: Sierra Mckeon RN)1154 (Given - Provider: Bill Davis, ABEL)1619 (Given - Provider: Bill Davis, ABEL)2309 (Not Given - Provider: Charmaine Woodson RN - Reason: Patient/family refused) 0512 (Given - Provider: Charmaine Woodson, RN)1205 (Given - Provider: Bill Davis, RN)1815 (Due) allopurinol (ZYLOPRIM) tablet 100 mg 100 mg, Oral, DAILY, First dose on Sat06/30/24 at 1815, Until Discontinued 2006 (Given - Provider: Sierra Mckeon RN) 0851 (Given - Provider: Bill Davis, ABEL) 0756 (Given - Provider: Bill Davis, RN) amLODIPine (NORVASC) tablet 5 mg 5 mg, Oral, DAILY, First dose on Sat07/01/24 at 0900, Until Discontinued 0851 (Given - Provider: Bill Davis RN) 075 (Given - Provider: Bill Davis, RN) bisacodyl (DULCOLAX) EC tablet 5 mg 5 mg, Oral, DAILY, First dose on Sat06/30/24 at 1815, Until Discontinued, Do not crush or break., Post-op 2006 (Given - Provider: Sierra Mckeon RN) 08 (Given - Provider: Bill Davis RN) 0756 (Given - Provider: Bill Davis, RN) butalbital-acetaminophen -caffeine (FIORICET, ESGIC) per tablet 1 tablet (COMPLETED) 1 tablet, Oral, ONCE, 1 dose, On Sat07/01/24 at 0445, Maximum dose of acetaminophen is 4000 mg from all sources in 24 hours. 0433 (Given - Provider: Sierra Mckeon RN) ceFAZolin (ANCEF) 2,000 mg in sterile water 20 mL IV syringe (COMPLETED) 2,000 mg, IntraVENous, ROASTERMAN TO O.R., 1 dose, On Sat06/30/24 at 1345, Antimicrobial Indications: Surgical Prophylaxis, Administer within 1 hour prior to incision. Recommend to repeat in 3-4 hours after initial dose if still intra-op. Administer over 5 mins. Reconstitute 2 g vial with 20 mL Sterile Water. Withdraw entire contents., Pre-op (day of surgery) 1448 (Canceled Entry - Provider: ANGELLA Plascencia CRNA)1459 (New Bag - Provider: ANGELLA Plascencia CRNA) ceFAZolin (ANCEF) 2,000 mg in sterile water 20 mL IV syringe (COMPLETED) 2,000 mg, IntraVENous, EVERY 8 HOURS, 2 doses, First dose on Sat06/30/24 at 2300, Last dose on Sat07/01/24 at 0700, Antimicrobial Indications: Surgical Prophylaxis, Administer over 5 mins. Reconstitute 2 g vial with 20 mL Sterile Water. Withdraw entire contents., Post-op 2349 (Given - Provider: Sierra Mckeon RN) 0851 (Given - Provider: Bill Davis RN) ciprofloxacin (CILOXAN) 0.3 % ophthalmic solution 1 drop (CANCELED) 1 drop, Right Eye, 3 times daily, First dose on Sat06/30/24 at 2100, Until Discontinued 2011 (Given - Provider: Sierra Mckeon RN) 0852 (Not Given - Provider: Bill Davis RN - Reason: Patient/family refused) dexAMETHasone (PF) (DECADRON) injection 10 mg (COMPLETED) 10 mg, IntraVENous, EVERY 8 HOURS, First dose on Sat07/01/24 at 0715, For 3 doses 0856 (Given - Provider: Bill Davis RN)1406 (Given - Provider: Bill Davis, ABEL)2309 (Given - Provider: Charmaine Woodson RN) ketorolac (ACULAR) 0.5 % ophthalmic solution 1 drop (CANCELED) 1 drop, Right Eye, 3 times daily, First dose on Sat06/30/24 at 2100, Until Discontinued 2011 (Given - Provider: Sierra Mckeon RN) 0852 (Given - Provider: Bill Davis, ABEL)1406 (Given - Provider: Bill Davis, RN) ketorolac (ACULAR) 0.5 % ophthalmic solution 1 drop 1 drop, Right Eye, 4 TIMES DAILY, First dose (after last modification) on Sat07/01/24 at 2100, Until Discontinued 2050 (Given - Provider: Charmaine Woodson RN) 0757 (Given - Provider: Bill Davis RN)1206 (Given - Provider: Bill Davis RN)1700 (Due)2100 (Due) lisinopril (PRINIVIL;ZESTRIL) tablet 20 mg 20 mg, Oral, DAILY, First dose on Sat06/30/24 at 1815, Until Discontinued 2006 (Given - Provider: Sierra Mckeon RN) 0851 (Given - Provider: Bill Davis, ABEL) 0756 (Given - Provider: Bill Davis, RN) ondansetron (ZOFRAN) injection 4 mg (COMPLETED) 4 mg, IntraVENous, ONCE, 1 dose, On Sat06/30/24 at 1715, PACU only 1650 (Given - Provider: Clari Muñiz, ABEL) pantoprazole (PROTONIX) tablet 40 mg 40 mg, Oral, DAILY BEFORE BREAKFAST, First dose on Sat07/01/24 at 0930, Until Discontinued, Substituted for Esomeprazole (NEXIUM). 0920 (Given - Provider: Bill Davis RN) 0512 (Given - Provider: Charmaine Woodson RN) polyethylene glycol (GLYCOLAX) packet 17 g 17 g, Oral, DAILY, First dose on Sat06/30/24 at 1815, Until Discontinued, Stir and dissolve one packet of powder (17 g) in any 4 to 8 ounces of beverage (cold, hot or room temperature) then drink, Post-op 2012 (Given - Provider: Sierra Mckeon RN) 0851 (Given - Provider: Bill Davis, ABEL) 0757 (Given - Provider: Bill Davis, RN) pravastatin (PRAVACHOL) tablet 40 mg 40 mg, Oral, DAILY, First dose on Sat06/30/24 at 1815, Until Discontinued 2006 (Given - Provider: Sierra Mckeon RN) 0851 (Given - Provider: Bill Davis, ABEL) 0756 (Given - Provider: Bill Davis, RN) prednisoLONE acetate (PRED FORTE) 1 % ophthalmic suspension 1 drop (CANCELED) 1 drop, Right Eye, 3 TIMES DAILY, First dose on Sat06/30/24 at 2100, Until Discontinued 2011 (Given - Provider: Sierra Mckeon RN) 0852 (Given - Provider: Bill Davis, ABEL)1406 (Not Given - Provider: Bill Davis, ABEL - Reason: Patient/family refused) prednisoLONE acetate (PRED FORTE) 1 % ophthalmic suspension 1 drop 1 drop, Right Eye, 2 times daily, First dose (after last modification) on Sat07/01/24 at 2100, Until Discontinued 2050 (Given - Provider: Charmaine Woodson RN) 075 (Given - Provider: Bill Davis RN)2099 (Due) sennosides-docusate sodium (SENOKOT-S) 8.6-50 MG tablet 1 tablet 1 tablet, Oral, 2 TIMES DAILY, First dose on Sat06/30/24 at 2100, Until Discontinued, Post-op 2006 (Given - Provider: Sierra Mckeon RN) 0851 (Given - Provider: Bill Davis RN)2050 (Given - Provider: Charmaine Woodson RN) 075 (Given - Provider: Bill Davis RN)2099 (Due) sodium chloride flush 0.9 % injection 5-40 mL 5-40 mL, IntraVENous, EVERY 12 HOURS SCHEDULED (2 times per day), First dose on Sat06/30/24 at 2100, Until Discontinued, For Line Patency: Peripheral IV = 5 mL; Midline or Central Line = 10 mL/lumen. If following IV push medication, administer flush at same rate as the IV push. Flush volume is determined by type of infusion therapy being given. For non-viscous solutions use: Peripheral IV = 5 mL Midline or Central Line = 10 mL/lumen For viscous solutions (i.e. blood components, parenteral nutrition, contrast media, or after obtaining blood sample) use: Peripheral IV = 10 mL Midline or Central Line = 20 mL/lumen, Post-op 2012 (Not Given - Provider: Sierra Mckeon RN - Reason: IV Fluid Infusing) 0851 (Given - Provider: Bill Davis RN)2050 (Given - Provider: Charmaine Woodson RN) 075 (Given - Provider: Bill Davis RN)2099 (Due) Continuous Medication Order 06/30/2024 07/01/2024 07/02/2024 0.9 % sodium chloride infusion IntraVENous, at 125 mL/hr, CONTINUOUS, Starting on Sat06/30/24 at 1815, Post-op 1832 (New Bag - Provider: Marcela Burns RN) 0700 (Stopped - Provider: Bill Davis RN - Comment: not running this shift.) PRN Medication Order 06/30/2024 07/01/2024 07/02/2024 0.9 % sodium chloride infusion (CANCELED) IntraVENous, at 5-250 mL/hr, PRN, if patient receiving piggyback infusions and maintenance fluids are not ordered, Starting on Sat06/30/24 at 1129, For piggyback infusion, administer at same rate as piggyback for a total of 25 mL. Enter 25 mL into dose field and piggyback rate into rate field of order. If piggyback is infusing at a rate less than 100 mL/hr, enter 25 mL into dose field and 100 mL/hr into rate field of order., Pre-op (day of surgery) 1222 (New Bag - Provider: Annita Pastrana RN)1432 (Paused - Provider: Marci Ulrich APRN - JOVON - Comment: Switch to gravity)1433 (Restarted - Provider: Marci Ulrich APRN - INS[employer])1620 (New Bag - Provider: Stacey Loving APRN - INS[employer])1635 (Anesthesia Volume Adjustment - Provider: Stacey Loving APRN - INSPECTOR [employer]) 0.9 % sodium chloride infusion IntraVENous, at 5-250 mL/hr, PRN, if patient receiving piggyback infusions and maintenance fluids are not ordered, Starting on Sat06/30/24 at 1753, For piggyback infusion, administer at same rate as piggyback for a total of 25 mL. Enter 25 mL into dose field and piggyback rate into rate field of order. If piggyback is infusing at a rate less than 100 mL/hr, enter 25 mL into dose field and 100 mL/hr into rate field of order., Post-op bisacodyl (DULCOLAX) suppository 10 mg 10 mg, Rectal, DAILY PRN, Starting on Sat06/30/24 at 1753, Until Discontinued, Constipation, First line therapy for constipation, Post-op 1337 (Given - Provider: Bill Davis RN) cyclobenzaprine (FLEXERIL) tablet 10 mg (CANCELED) 10 mg, Oral, EVERY 12 HOURS PRN, Starting on Sat06/30/24 at 1753, Until Sat07/01/24 at 0646, Muscle spasms, Post-op 1923 (Given - Provider: Marcela Burns, ABEL) cyclobenzaprine (FLEXERIL) tablet 10 mg 10 mg, Oral, 3 TIMES DAILY PRN, Starting on Sat07/01/24 at 0849, Until Discontinued, Muscle spasms, Post-op 2142 (Given - Provider: Charmaine Woodson, RN) 1205 (Given - Provider: Bill Davis, ABEL) docusate sodium (ENEMEEZ) enema 283 mg 283 mg (1 enema), Rectal, DAILY PRN, Starting on Disha 07/02/24 at 1433, Until Discontinued, Constipation 1451 (Given - Provider: Rosa Kaba LPN) fentaNYL (SUBLIMAZE) injection 50 mcg (COMPLETED) 50 mcg, IntraVENous, EVERY 5 MIN PRN, 2 doses, Starting on Tu06/30/24 at 1633, Until Sat06/30/24 at 1705, Pain Severe (7-10), For Phase I. If Phase II oral narcotics have been administered in the last 60 minutes, do not administer IV narcotics unless specifically approved by provider., PACU only 1700 (Given - Provider: Clari Muñiz RN)1705 (Given - Provider: Clari Muñiz RN) HYDROmorphone (DILAUDID) injection 0.25 mg (COMPLETED) 0.25 mg, IntraVENous, EVERY 5 MIN PRN, 2 doses, Starting on Tu06/30/24 at 1633, Until Tu06/30/24 at 1647, Pain Moderate (4-6), For Phase I. If Phase II oral narcotics have been administered in the last 60 minutes, do not administer IV narcotics unless specifically approved by provider., PACU only 1642 (Given - Provider: Clari Muñiz RN)1647 (Given - Provider: Clari Muñiz RN) HYDROmorphone (DILAUDID) injection 0.25 mg (COMPLETED) 0.25 mg, IntraVENous, EVERY 5 MIN PRN, 2 doses, Starting on Tu06/30/24 at 1653, Until Tu06/30/24 at 1710, Pain Moderate (4-6), If oral and IV narcotics ordered, use oral first and only use IV if oral is ineffective or cannot take oral. Do Not give oral and IV within 1 hour of each other unless specifically ordered., PACU only 1651 (Given - Provider: Clari Muñiz, RN)1709 (Given - Provider: Clari Muñiz, RN) morphine (PF) injection 2 mg(Linked Group 1) 2 mg, IntraVENous, EVERY 2 HOURS PRN, Starting on Sat06/30/24 at 1753, Until Discontinued, Pain Moderate (4-6), If oral and IV narcotics ordered, use oral first and only use IV if oral is ineffective or cannot take oral. Do Not give oral and IV within 1 hour of each other unless specifically ordered., Post-op 1809 (See Alternative - Provider: Marcela Burns RN)2129 (See Alternative - Provider: Sierra Mckeon RN)2346 (See Alternative - Provider: Sierra Mckeon RN) 021 (See Alternative - Provider: Sierra Mckeon, ABEL)0418 (See Alternative - Provider: Sierra Mckeon, ABEL)0630 (See Alternative - Provider: Sierra Mckeon, ABEL)0912 (Given - Provider: Bill Davis, RN) morphine (PF) injection 4 mg(Linked Group 1) 4 mg, IntraVENous, EVERY 2 HOURS PRN, Starting on Sat06/30/24 at 1753, Until Discontinued, Pain Severe (7-10), If oral and IV narcotics ordered, use oral first and only use IV if oral is ineffective or cannot take oral. Do Not give oral and IV within 1 hour of each other unless specifically ordered., Post-op 1809 (Given - Provider: Marcela Burns RN)2129 (Given - Provider: Sierra Mckeon RN)2346 (Given - Provider: Sierra Mckeon RN) 021 (Given - Provider: Sierra Mckeon, ABEL)0418 (Given - Provider: Sierra Mckeon, ABEL)0630 (Given - Provider: Sierra Mckeon, ABEL)0912 (See Alternative - Provider: Bill Davis, RN) ondansetron (ZOFRAN) injection 4 mg(Linked Group 2) 4 mg, IntraVENous, EVERY 6 HOURS PRN, Starting on Sat06/30/24 at 1753, Until Discontinued, Nausea, Vomiting, Administer if oral route cannot be used., Post-op ondansetron (ZOFRAN-ODT) disintegrating tablet 4 mg(Linked Group 2) 4 mg, Oral, EVERY 8 HOURS PRN, Starting on Sat06/30/24 at 1753, Until Discontinued, Nausea, Vomiting, Post-op oxyCODONE (ROXICODONE) immediate release tablet 10 mg(Linked Group 3) 10 mg, Oral, EVERY 4 HOURS PRN, Starting on Sat06/30/24 at 1753, Until Discontinued, Pain Severe (7-10), Post-op 2006 (Given - Provider: Sierra Mckeon RN) 010 (Given - Provider: Sierra Mckeon RN)0521 (Given - Provider: Sierra Mckeon RN)1154 (Given - Provider: Bill Davis RN)1606 (Given - Provider: Bill Davis RN)214 (Given - Provider: Charmaine Woodson RN) 0756 (Given - Provider: Bill Davis RN)1643 (Given - Provider: Rosa Kaba LPN) oxyCODONE (ROXICODONE) immediate release tablet 5 mg(Linked Group 3) 5 mg, Oral, EVERY 4 HOURS PRN, Starting on Sat06/30/24 at 1753, Until Discontinued, Pain Moderate (4-6), Post-op 2006 (See Alternative - Provider: Sierra Mckeon RN) 010 (See Alternative - Provider: Sierra Mckeon RN)0521 (See Alternative - Provider: Sierra Mckeon RN)1154 (See Alternative - Provider: Bill Davis RN)1606 (See Alternative - Provider: Bill Davis RN)214 (See Alternative - Provider: Charmaine Woodson RN) 0756 (See Alternative - Provider: Bill Davis RN)1643 (See Alternative - Provider: oRsa Kaba LPN) sodium chloride flush 0.9 % injection 5-40 mL 5-40 mL, IntraVENous, PRN, Starting on Sat06/30/24 at 1753, Until Discontinued, Line Care, After every IV line use, For Line Patency: Peripheral IV = 5 mL; Midline or Central Line = 10 mL/lumen. If following IV push medication, administer flush at same rate as the IV push. Flush volume is determined by type of infusion therapy being given. For non-viscous solutions use: Peripheral IV = 5 mL Midline or Central Line = 10 mL/lumen For viscous solutions (i.e. blood components, parenteral nutrition, contrast media, or after obtaining blood sample) use: Peripheral IV = 10 mL Midline or Central Line = 20 mL/lumen, Post-op 1406 (Given - Provider: Bill Davis RN) sodium phosphate (FLEET) rectal enema 1 enema 1 enema, Rectal, DAILY PRN, Starting on Sat06/30/24 at 1753, Until Discontinued, Constipation, Second line therapy for constipation, After 24 hours, if no result from first line PRN therapy, give second line therapy in combination with first line therapy., Post-op vancomycin (VANCOCIN) injection (CANCELED) PRN, Starting on Sat06/30/24 at 1611, Until Sat06/30/24 at 1634, Intra-op 1611 (Given - Provider: Victor Manuel Blood PA-C) Linked Groups Order Group 1: morphine (PF) injection 2 mgJump to med 2 mg, IntraVENous, EVERY 2 HOURS PRN, Starting on Sat06/30/24 at 1753, Until Discontinued, Pain Moderate (4-6), If oral and IV narcotics ordered, use oral first and only use IV if oral is ineffective or cannot take oral. Do Not give oral and IV within 1 hour of each other unless specifically ordered., Post-op Or morphine (PF) injection 4 mgJump to med 4 mg, IntraVENous, EVERY 2 HOURS PRN, Starting on Sat06/30/24 at 1753, Until Discontinued, Pain Severe (7-10), If oral and IV narcotics ordered, use oral first and only use IV if oral is ineffective or cannot take oral. Do Not give oral and IV within 1 hour of each other unless specifically ordered., Post-op Group 2: ondansetron (ZOFRAN-ODT) disintegrating tablet 4 mgJump to med 4 mg, Oral, EVERY 8 HOURS PRN, Starting on Sat06/30/24 at 1753, Until Discontinued, Nausea, Vomiting, Post-op Or ondansetron (ZOFRAN) injection 4 mgJump to med 4 mg, IntraVENous, EVERY 6 HOURS PRN, Starting on Sat06/30/24 at 1753, Until Discontinued, Nausea, Vomiting, Administer if oral route cannot be used., Post- op Group 3: oxyCODONE (ROXICODONE) immediate release tablet 5 mgJump to med 5 mg, Oral, EVERY 4 HOURS PRN, Starting on Sat06/30/24 at 1753, Until Discontinued, Pain Moderate (4-6), Post-op Or oxyCODONE (ROXICODONE) immediate release tablet 10 mgJump to med 10 mg, Oral, EVERY 4 HOURS PRN, Starting on Sat06/30/24 at 1753, Until Discontinued, Pain Severe (7-10), Post-op FOR RECORDS PERTAINING TO PATIENTS WHO ARE [...] BE BASED ON THE PRIMARY CLINICAL RECORDS. [facility] [employer] [facility]. provides no warranty or guarantee of the accuracy or completeness of information in this document.
== END 2024-08-28 08:41 | disposition home or self-care (01) ==
LOC: EC 08:40
PROVIDERS: PCP Nurse Practitioner Family; Visit Provider Orthopaedic Surgery Orthopaedic Surgery of the Spine
DX: M54.50 Low back pain, unspecified (principal); M43.27 Fusion of spine, lumbosacral region
CPT/HCPCS: 72100

== ENCOUNTER 2024-12-02 10:36 | Outpatient (OUT) | payer OTHER, SELFPAY | END 2024-12-02 10:37 | disposition home or self-care (01) | LOC: US 10:38 | PROVIDERS: PCP Family Medicine; Visit Provider Family Medicine | DX: R09.89 Other specified symptoms and signs involving the circulatory and respiratory systems (principal) | CPT/HCPCS: 93880 ==

== ENCOUNTER 2024-12-25 07:52 | Outpatient (OUT) | payer OTHER, SELFPAY ==
--- OUTSIDE RECORDS SUMMARY | 2023-11-06 05:30 | XMS_ITS ---
Author Organization [facility] vices Address [address] [place], [place] [id number] Care Team Providers Care Cigarette Paper Tester Name Role Phone Adiel Bravo Primary Care Provider REASON FOR VISIT HTN/DM Social History Sex Assigned At : Social History Observation Description Sex Assigned At Male Encounters Encounter Location Date Provider Diagnosis [facility] [address] [place] [address] 11/06/2023 Adiel Bravo Plan Of Treatment No Information Progress Notes * Mike PHILLIPSDOB:1965 ([age] yo M)Acc No.[id number]:11/06/2023 Medical Note Patient: Mike BARAJAS Provider: CHACHO Vasquez :1965 A ge:58 Y S ex:Male Date:11/06/2023 Address:[address] [place], [place] [id number] Subjective: * Chief Complaints: * 1 . HTN/DM. * Medical History: Objective: * Vitals: Assessment: Plan: * Treatment: * Billing Information: * Visit Code: * Procedure Codes: * Electronic signature of Rajan Bravo NP on 12/25/2024 at 07:57 AM EDT Sign off status: Pending * Provider: CHACHO Vasquez Date: 0 11/06/2023 Generated for Printi ng/Faxing/eTransmitting on: 0 12/25/2024 07:57 AM EDT
--- OUTSIDE RECORDS SUMMARY | 2024-05-08 06:15 | XMS_ITS ---
Author Organization [facility] Address [address] [place], [place] [id number] Care Team Providers Care Sports Bookmaker Name Role Phone Adiel Bravo Primary Care Provider REASON FOR VISIT Wellness Social History Sex Assigned At : Social History Observation Description Sex Assigned At Male Encounters Encounter Location Date Provider Diagnosis [place] [address] [place] [address] 05/08/2024 Adiel Bravo Plan Of Treatment No Information Progress Notes * Mike PHILLIPSDOB:1965 ([age] yo M)Acc No.[id number]:05/08/2024 Medical Note Patient: Mike BARAJAS Provider: CHACHO Vasquez :1965 A ge:58 Y S ex:Male Date:05/08/2024 Address:[address] [place], [place] [id number] Subjective: * Chief Complaints: * 1 . Wellness. * Medical History: Objective: * Vitals: Assessment: Plan: * Treatment: * Billing Information: * Visit Code: * Procedure Codes: * Electronic signature of Rajan Bravo NP on 12/25/2024 at 07:57 AM EDT Sign off status: Pending * Provider: CHACHO Vasquez Date: 1 Generated for Printi ng/Faxing/eTransmitting on: 0 12/25/2024 07:57 AM EDT
--- OUTSIDE RECORDS SUMMARY | 2024-06-29 08:00 | XMS_ITS ---
Author Organization [facility] in [place] Address [address] [place] [address] Care Team Providers Care Space And Missile Operations Name Role Phone BERTA STOCKTON CNP Primary Care Provider -[phone] Berta Stockton [phone] Encounters Encounter Location Date Provider Diagnosis [facility] [address] [place] [phone] 2024 Berta Stockton Plan Of Treatment No Information Progress Notes * Mike PHILLIPS MDOB:1965 (59 yo M)Acc No.[id number]:2024 Patient: Anne ALEMAN Mike Block :1965 A ge:59 Y S ex:Male Address:[address] [place] [address] , [place], [address] * true * Date: Generated for Jaime pandya/Vereniceg/eTransmitting on: 0 12/25/2024 07:56 AM EDT
--- OUTSIDE RECORDS SUMMARY | 2024-07-10 06:30 | XMS_ITS ---
Author Organization The [facility] in [place] Address [address] [place] [address] Care Team Providers Care Loft Worker Apprentice Name Role Phone BERTA STOCKTON CNP Primary Care Provider -[phone] Berta Stockton [phone] [facility] D/C-07/02 Encounters Encounter Location Date Provider Diagnosis [facility] [address] [place] [address] 07/10/2024 Berta Stockton Plan Of Treatment No Information Progress Notes * Mike PHILLIPS MDOB:1965 (59 yo M)Acc No.[id number]:07/10/2024 UNLOCKED PROGRESS NOTE Progress Note Patient: Mike BARAJAS [facility]orsche [facility]ton [facility]1965 A ge:59 Y S ex:Male Date:07/10/2024 Address:[address] [place], [place] [address] Pcp:BERTA STOCKTON CNP Subjective: * Chief Complaints: * [address] [facility] D/C-07/02. * Medical History: Objective: * Vitals: Assessment: Plan: * Treatment: * * Electronic signature of Karen Perez NP, TAVERN CAR ATTENDANT.[id number] on 12/25/2024 at 07:56 AM EDT Sign off status: Pending Visit Status: C ANCPHONE (Cancelled Phone) * Provider: Porsche Stockton ([facility]), PAPER BAG MAKING MACHINIST Date: 1 09/10/2023 Generated for Jaime pandya/Marlen/Baljinder on: 0 12/25/2024 07:56 AM EDT
--- OUTSIDE RECORDS SUMMARY | 2024-08-28 04:40 | XMS_ITS ---
Author Organization [facility] Address [address] [place] [address] Care Team Providers Care Furnace Reliner Name Role Phone Rodolfo Keller JR, DO Primary Care Provider Radha willard Cece Xie Unavailable [phone] Elissa Vera Unavailable [phone] Allergies No Known Allergies REASON FOR VISIT L4-S1 DECMPRESSION AND FUSION , L4-5 TL[facility], [facility] 07[facility]07 Medications Medication SIG (Take, Route, Frequency, Duration) Notes Start Date End Date Status atorvastatin 20 mg 1 tab(s) A ctive amLODIPine 10 mg 1 tab(s) Act cosmo allopurinol 100 mg as directed orally Active Cyclobenzaprine Hydrochlorid e 10 mg 1 tab(s) orally 3 times a day prn muscle spasms 06/26/2024 Active lisinopril 20 mg 1 tab(s) Act cosmo tamsulosin 0.4 mg 1 cap(s) Ac tive Social History Tobacco Use: Social History Observation Description Date Details (start date - stop date) Never Smoker NA - NA AUDIT-C (Standard) Question Answer Notes Did you have a drink contain ing alcohol in the past year? Yes How often did you have six o r more drinks on one occasion in the past year? Declined to specify (0 point) How many drinks did you have on a typical day when you were drinking in the past year? 1 or 2 drinks (0 point) How often did you have a dri nk containing alcohol in the past year? Declined to specify (0 point) Points 0 Interpretation Negative Tobacco Control (Standard) Question Answer Notes Tobacco use: Nonsmoker Encounters Encounter Location Date Provider Diagnosis [facility] [address] [place] [address] [place] [address] 08/28/2024 [facility] Encounter for other orthopedic aftercare Z47.89 and Arthrodesis status Z98.1 Assessments Encounter Date Diagnosis (ICD Code) Assessment Notes Treatment Notes Treatment Clinical Notes Section Notes 08/28/2024 Encounter for other orthopedic aftercare (ICD-10 - Z47.89) 1. 8 weeks s/p L4-S1 decompressi on/fusion 08/28/2024 Arthrodesis status (ICD-10 - Z98.1) 1. 8 weeks s/p L4-S1 decompressi on/fusion 08/28/2024 Other Plan established by Dr. Walters. Patient evaluated by myself and Dr. Walters today. Overall patient is doing well postoperatively and just states he feels like he has some weakness in his left leg still. I did offer a prescription for physical therapy but he would like to try a home exercise program first. We did provide him with this today. We will see him back in 6 weeks for his next postop recheck. The patient is very much in agreement with the treatment and/or diagnostic plan set forth and all questions were answered to the patient's satisfaction. Thanks once again. If we can be of further service to your patients with disorders of the spine, cervical, thoracic, or lumbar, please do not hesitate to contact Dr. Walters. Best regards, 1. 8 weeks s/p L4-S1 decompressi on/fusion Plan Of Treatment Treatment Notes Assessment Notes Other Plan established by Dr. Walters. Patient evaluated by myself and Dr. Walters today. Overall patient is doing well postoperatively and just states he feels like he has some weakness in his left leg still. I did offer a prescription for physical therapy but he would like to try a home exercise program first. We did provide him with this today. We will see him back in 6 weeks for his next postop recheck. The patient is very much in agreement with the treatment and/or diagnostic plan set forth and all questions were answered to the patient's satisfaction. Thanks once again. If we can be of further service to your patients with disorders of the spine, cervical, thoracic, or lumbar, please do not hesitate to contact Dr. Walters. Best regards, Pending Test Test Name Order Date Lumbar spine 2v ap and lat - [id number] 08/28 Next Appt Details Follow Up: 6 Weeks, Reason: Provider Name:Cece Dey air, 12/25/2024 08:30:00 AM, [address], [address], [place], [address], Progress Notes * JUAN FRANCISCO CARMEN OB:1965 (59 yo M)Acc No.[id number]:08/28/2024 Progress Notes Patient: JUAN FRANCISCO BARAJAS Provider: STEVO Vale :1965 A ge:59 Y S ex:Male Date:08/28/2024 Address:[address] [place] [address] , [id number] Pcp:Rodolfo Keller JR, DO Subjective: * Chief Complaints: * L 4-S1 DECMPRESSION AND FUSION , L4-5 TLIF, [facility], 07/07 * HPI: G eneral Follow Up Information: Dictated by Elissa Vera PA-C Patient returns to the office today 6 weeks since his last appointment. He is now 8 weeks status post L4-S1 decompression/fusion. At his last appointment he had presented about a week after surgery with complaints of increased incisional drainage. We had placed him on Keflex and Bactrim. The patient states that his drainage had stopped about 4 days after starting the antibiotics. Today he reports that his low back pain has improved but he is having tingling to both of his feet that is new postoperatively. His symptoms prior to surgery were in his left leg and it radiated from the back to about the knee and are still there but he states much better. He denies any headaches. * Medical History: * Surgical History: M icro discectomy 1993Right knee replacement, total 06/12Left knee replacement, total 04/2023Right hip 11/2022Hernia 11/20210093P1-Q9 laminectomy, PSF 06/2024 * Family History: G randparents: diagnosed with Diabetes. M other: diagnosed with Diabetes, Heart disease, Hypertension. S iblings: diagnosed with Diabetes. F ather: diagnosed with Diabetes, Hypertension. * Social History: E xercise regularly D o you exercise? Y es, H ow many times per week? 2 times, H ow long do you exercise? 3 0 min. D o you live W ith whom do you live? s pouse only. W hat is your place of residence? W here do you live? P rivate home. 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 M arital status M arital Status M arried. A NICOLE-C (Standard) D id you have a drink containing alcohol in the past year? Y es, H ow often did you have six or more drinks on one occasion in the past year??Declined to specify (0 point), H ow many drinks did you have on a typical day when you were drinking in the past year? 1 or 2 drinks (0 point), H ow often did you have a drink containing alcohol in the past year? D eclined to specify (0 point), P oints 0 , I nterpretation N egative. T obacco Control (Standard) T obacco use: N onsmoker. * Medications: T akingtamsulosin 0.4 mg capsule 1 cap(s) lisinopril 20 mg tablet 1 tab(s) atorvastatin 20 mg tablet 1 tab(s) amLODIPine 10 mg tablet 1 tab(s) allopurinol 100 mg tablet as directed orally Cyclobenzaprine Hydrochloride 10 mg tablet 1 tab(s) orally 3 times a day prn muscle spasms Medication List reviewed and reconciled with the patientTaking tamsulosin 0.4 mg capsule 1 cap(s) Taking lisinopril 20 mg tablet 1 tab(s) Taking atorvastatin 20 mg tablet 1 tab(s) Taking amLODIPine 10 mg tablet 1 tab(s) Taking allopurinol 100 mg tablet as directed orally Taking Cyclobenzaprine Hydrochloride 10 mg tablet 1 tab(s) orally 3 times a day prn muscle spasms Medication List reviewed and reconciled with the patient * Allergies: N .K.D.A.no[Allergies Verified] Objective: * Vitals: * Examination: G eneral examination: O n examination, the patient is well-developed, well-nourished, well-groomed, alert and oriented x3, normal mood. Patient ambulates with nonantalgic gait. Well-healed midline lumbar incision. 5/5 muscle strength bilateral lower extremities, except 4+/5 left hip flexion. Sensory intact lower extremities. X -ray Imaging Studies: 2 V Lumbar spine AP/Lat done in office today and reviewed and interpreted by myself showing instrumentation from L4-S1. No complications with the hardware. No signs of instability or acute fractures. Assessment: * Assessment: 1. E ncounter for other orthopedic aftercare - Z47.89 (Primary) 2 . A rthrodesis status - Z98.1 1. 8 weeks s/p L4-S1 decompr ession/fusion Plan: * Treatment: * Procedure Codes: * Follow Up: 6 Weeks Forms: * Images: * Sign off status: Completed true * Provider: STEVO Vale Date: 0 08/28/2024 Generated for Jaime pandya/Marlen/Baljinder on: 0 12/25/2024 07:57 AM EDT History and Physical Notes * HPI (History of Present Illness) Category Sub-Category Detail Notes Category Not es General Follow Up Information Dictated by Elissa Vera PA-C Patient returns to the office today 6 weeks since his last appointment. He is now 8 weeks status post L4-S1 decompression/fusion. At his last appointment he had presented about a week after surgery with complaints of increased incisional drainage. We had placed him on Keflex and Bactrim. The patient states that his drainage had stopped about 4 days after starting the antibiotics. Today he reports that his low back pain has improved but he is having tingling to both of his feet that is new postoperatively. His symptoms prior to surgery were in his left leg and it radiated from the back to about the knee and are still there but he states much better. He denies any headaches. Examination Category Sub-Category Detail Notes Category Not es General examination On exami nation, the patient is well-developed, well-nourished, well-groomed, alert and oriented x3, normal mood. Patient ambulates with nonantalgic gait. Well-healed midline lumbar incision. 5/5 muscle strength bilateral lower extremities, except 4+/5 left hip flexion. Sensory intact lower extremities. X-ray Imaging Studies 2V Lum bar spine AP/Lat done in office today and reviewed and interpreted by myself showing instrumentation from L4-S1. No complications with the hardware. No signs of instability or acute fractures.
--- OUTSIDE RECORDS SUMMARY | 2024-10-09 05:30 | XMS_ITS ---
Author Organization [facility] Address [address] [place] [address] Care Team Providers Care Gift Shop Manager Name Role Phone Rodolfo Keller JR, DO Primary Care Provider Radha Cece Saenz Unavailable [phone] REASON FOR VISIT LUMBAR RECHECK Medications Medication SIG (Take, Route, Frequency, Duration) Notes Start Date End Date Status Cyclobenzaprine Hydrochlorid e 10 mg 1 tab(s) orally 3 times a day prn muscle spasms 06/26/2024 Active allopurinol 100 mg as directed orally Active lisinopril 20 mg 1 tab(s) Act cosmo atorvastatin 20 mg 1 tab(s) A ctive tamsulosin 0.4 mg 1 cap(s) Ac tive amLODIPine 10 mg 1 tab(s) Act cosmo Encounters Encounter Location Date Provider Diagnosis [facility] Office [address] [facility] [place] [address] [place] [address] 10/09/2024 Cece Camarena Clair Plan Of Treatment Pending Test Test Name Order Date Lumbar spine 2v ap and lat - [id number] 10/09 Next Appt Details Provider Name:Chidibrit Dey , 12/25/2024 08:30:00 AM, [address] [facility], [address], [place], [address], Progress Notes * JUAN FRANCISCO CARMEN MDOB:1965 (59 yo M)Acc No.[id number]:10/09/2024 Patient: Anne WILLYJUAN FRANCISCO Rodríguez M Provider: Anne Walters MD, PhD :1965 A ge:59 Y S ex:Male Date:10/09/2024 Address:[address] [place], [place] [address] Pcp:Rodolfo Keller JR, DO Subjective: * Chief [...] Forms: * Images: * Electronic signature of Oly Xie MD, PHD on 12/25/2024 at 07:56 AM EDT Sign off status: Pending * Provider: Anne Walters MD, PhD Date: 0 10/09/2024 Generated for Jaime pandya/Marlen/Irajitting on: 0 12/25/2024 07:56 AM EDT
--- OUTSIDE RECORDS SUMMARY | 2024-12-25 04:30 | XMS_ITS ---
Author Organization [facility] Address [address] [place] [address] Care Team Providers Care Consumer Affairs Director Name Role Phone Rodolfo Keller JR, DO Primary Care Provider Radha Cece Saenz Unavailable [phone] REASON FOR VISIT LUMBAR RECHECK Medications Medication SIG (Take, Route, Frequency, Duration) Notes Start Date End Date Status Cyclobenzaprine Hydrochlorid e 10 mg 1 tab(s) orally 3 times a day prn muscle spasms 06/26/2024 Active lisinopril 20 mg 1 tab(s) Act cosmo atorvastatin 20 mg 1 tab(s) A ctive amLODIPine 10 mg 1 tab(s) Act cosmo allopurinol 100 mg as directed orally Active tamsulosin 0.4 mg 1 cap(s) Ac tive Encounters Encounter Location Date Provider Diagnosis [facility] Office [address] [facility] [place] [address] [place] [address] 12/25/[address] [facility] Plan Of Treatment Pending Test Test Name Order Date Lumbar spine, 4v flex ext - [id number] 2024 Next Appt Details Provider Name:Chidibrit Dey , 12/25/2024 08:30:00 AM, [address] [facility], [address], [place], [address], Progress Notes * JUAN FRANCISCO CARMEN MDOB:1965 (59 yo M)Acc No.[id number]:12/25/2024 Patient: Anne WILLYJUAN FRANCISCO Rodríguez M Provider: Anne Walters MD, PhD :1965 A ge:59 Y S ex:Male Date:12/25/2024 Address:[address] [place], [place] [address] Pcp:Rodolfo Keller JR, DO Subjective: * Chief [...] * Vitals: Assessment: Plan: * Treatment: * Procedure Codes: 7 2109 X-ray Lumbar Spine, 5 view complete Forms: * Images: * Electronic signature of Oly Xie MD, PHD on 12/25/2024 at 07:57 AM EDT Sign off status: Pending * Provider: Anne Walters MD, PhD Date: 0 12/25/2024 Generated for Jaime pandya/Marlen/Irajitting on: 12/25/2024 07:57 AM EDT
--- OUTSIDE RECORDS SUMMARY | 2024-12-25 07:57 | XMS_ITS | Patient Health Record ---
Author Organization [facility] Address [address] [place], [place] [address] Care Team Providers Care Lockstitch Waistband Setter Name Role Phone Adiel Bravo Primary Care Provider [phone] Allergies No Known Allergies Results Component Value Reference Range Notes UDS Hemoglobin A1C Reviewed date:08/04/2024 07:52:58 AM Interpretation: Performing Lab: Notes/Report: Hemoglobin A1C 6.0 Reason For Referral No Information Medications Medication SIG (Take, Route, Frequency, Duration) Notes Start Date End Date Status Qqjckmqtu-Vyvgwnsd-XW 30-2-10 MG/5ML 5 mL as needed Orally Every 8 hours for 14 days DO NOT USE WITH SARAH HOYT 07/29/2023 Active Tamsulosin HCl 0.4 MG 1 capsule Orally O nce a day for 90 days Active Allopurinol 100 MG 1 tablet Orally Once a day for 90 days Active Sildenafil Citrate 25 MG 1 tablet 0.5-1 hr prior to sexual activity repeat x1 if needed Orally Once a day for 30 days 05/20/2023 Not-Taking Fish Oil Buffalo-3 1000 MG 1 capsule Orall y Once a day for 90 days 05/09/2023 Not-Taking predniSONE 50 MG 1 tablet Orally Once a day for 5 07/29/2023 Active Azithromycin 250 MG 2 tabs on day 1 and then 1 tab on days 2-5 Orally Daily for 5 days 07/29/2023 Active Albuterol Sulfate HFA 108 (90 Base) MCG/ACT 1 puff as needed Inhalation every 4 hrs for 30 07/29/2023 Active Atorvastatin Calcium 20 MG 1 tablet Orally Once a day Active Lisinopril 20 MG 1 tablet Orally Once a day for 90 days Active Benzonatate 100 MG 1 capsule as needed Orally Three times a day for 5 days DO NOT USE WITH COUGH SYRUP 07/29/2023 Active amLODIPine Besylate 10 MG 1 tablet Orall y Once a day for 90 days Active Immunizations Vaccine Route Administration Date Status Comme nts *Tdap (Adacel)-Private IM Intramuscular 05/09/2023 Adminis tered *Qqowhxvbo-Rzhxufucp-Rhiop te IM Intramuscular 05/09/2023 Administered Social History Tobacco Use: Social History Observation Description Date Details (start date - stop date) Never Smoker NA - NA Sex Assigned At : Social History Observation Description Sex Assigned At Male Tobacco Use/Smoking Question Answer Notes Tobacco use: nonsmoker patient enter ed data CAGE-AID Questionnaire (2018 Edition) Question Answer Notes Have you ever felt that you ought to cut down on your drinking or drug use? No patient entered data Have people annoyed you by c riticizing your drinking or drug use? No patient entered data Have you ever felt bad or gu ilty about your drinking or drug use? No patient entered data Have you ever had a drink or used drugs first thing in the morning to steady your nerves or to get rid of a hangover? No patient entered data CAGE-AID Score 0 Interpretation Negative PRAPARE Question Answer Notes Date Completed/Updated: 07/29/2023 georgi nt entered data What is your current housing situation? I have housing patient entered data Are you worried about losing your housing? No patient entered data What is the highest level of school that you have finished? 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 Check all that apply I do not have problems meeting my needs Has lack of transportation k ept you from medical appointments, meetings, work or from getting things needed for daily living? No How often do you see or talk to people that you care about and feel close to? (For example: talking to friends on the phone, visiting friends or family, going to worship or club meetings) More than 5 times a week patient entered data How stressed are you? Stress is when someone feels tense, nervous, anxious, or can't sleep at night because their mind is troubled A little bit patient entered data In the past year have you sp ent more than 2 nights in a row in a custodial, longterm, long-term center, or juvenile correctional facility? No patient entered jose a Are you a refugee? No patient en tered data What country are you from? [place] christina kendrick entered data Do you feel physically and emotionally safe where you currently live? Yes patient entered data In the past year, have you b een afraid of your partner or ex-partner? No patient entered data PRAPARE Score: 1 Problems Problem Type SNOMED Code ICD Code Onset Dates Problem Status W/U Status Risk Notes Problem Hyperlipidemia (81069762) Hyperlipidemia (E78.5) Active confirmed Problem Type 2 diabetes mellitus (81272830) Type 2 diabetes mellitus (E11.9) Active confirmed Problem Hypertension (81327089) HTN (hypertension) (I10) Active confirmed Problem 549886156 Hypertriglycerid emia (E78.1) Active confirmed Problem [id number] Erectile dysfunc tion, unspecified erectile dysfunction type (N52.9) Active confirmed Plan Of Treatment No Information Insurance Providers Payer Name Payer Address Payer Phone Subscriber Number Group Number Insured Name Patient Relationship to Insured Coverage Start Date Coverage End Date Sandy Bernstein [employer] [address] [facility] [place] [address] [id number] Mike Phillips Self - patient is the insured 3 Medical (General) History Medical History History ICD Code HTN (hypertension) I10 Hyperlipidemia E78.5 Type 2 diabetes mellitus E11.9 Gout M10.9 Surgical History Surgery Date(Month/Year) Hernia Surgery 02/2022 R Knee Replacement 05/2022 R Hip Replacement 11/2022 left knee replacement 04/2023 Hospitalization History Reason Date(Month/Year) see above
--- OUTSIDE RECORDS SUMMARY | 2024-12-25 07:57 | XMS_ITS | Encounter Summary ---
Author Organization [facility] Address [address] [place] [address] Care Team Providers Care Log Loader Helper Name Role Phone Colt Frazier MD Primary Care Provider [phone] Encounter Details Date Type Department Care Team (Late Contact Info) Description 01/16/2023 Abstract [facility] [address] [facility] [address] [place] [address] Gilberto Saha, PT [address] [facility] [address] [place] [address] Social History Tobacco Use Types Packs/Day Years Used Date Smoking Tobacco: Never Smokeless Tobacco: Never Alcohol Use Standard Drinks/Week Comments Yes 0 (1 standard drink = 0.6 oz pur e alcohol) caffeine 2-3 cups/day Sex and Gender Information Value Date Recorded Sex Assigned at Not on file Legal Sex Male 6:57 PM EDT Gender Identity Male 10/03/2022 6:57 PM EDT Sexual Orientation Not on file COVID-19 Exposure Response Date Recorded In the last 10 days, have yo u been in contact with someone who was confirmed or suspected to have Coronavirus/COVID-19? No / Unsure 01/09/2023 2:20 PM EDT documented as of this encounter Plan of Treatment Upcoming Encounters Date Type Department Care Team (Late Contact Info) Description 06/10/2025 8:00 AM EST Office Visit [facility] [address] [facility] [address] [place] [address] James Ponce, PA [address] [place] [address] 07/25/2026 8:00 AM EST Office Visit [facility] [address] [facility] [address] [place] [address] James Ponce, STEVO [address] [facility] [address] [place] [address] documented as of this encounter Visit Diagnoses Not on filedocumented in this encounter Care Teams Log Loader Helper Relationship Specialty Start Date End Date Colt Frazier MD [address] [place] [address] PCP - General Family Medicine 11/30/22 documented as of this encounter
--- OUTSIDE RECORDS SUMMARY | 2024-12-25 07:57 | XMS_ITS | Clinical Summary ---
Author Organization [facility] Address [id number] [address] [place] [address] Care Team Providers Care Roller Maker Name Role Phone Adiel Law [employer] TRAMMER Primary Care Provider [phone] Allergies No known active allergies Medications atorvastatin (LIPITOR) 20 mg tablet Take 20 mg by mouth daily. Active lisinopril (PRINIVIL,ZESTRI L) 20 mg tablet Take 20 mg by mouth nightly. Active amLODIPine (NORVASC) 10 mg tablet Take 10 mg by mouth daily. Active Active Problems No known active problems Family History Medical History Relation Name Comments Diabetes Father Hypertension Father Diabetes Mother Heart disease Mother Relation Name Status Comments Father Mother Social History Tobacco Use Types Packs/Day Years Used Date Smoking Tobacco: Never Smokeless Tobacco: Never Alcohol Use Standard Drinks/Week Comments Yes 0 (1 standard drink = 0.6 oz pur e alcohol) occassional Childcare Answer Date Recorded Childcare Unknown 12/31/2018 Employment Answer Date Recorded Employment Unknown 12/31/2018 Purpose - Life Answer Date Recorded Purpose and direction in life Unknown Sex and Gender Information Value Date Recorded Sex Assigned at Not on file Legal Sex Male 11:37 AM EDT Gender Identity Not on file Sexual Orientation Not on file Last Filed Vital Signs Vital Sign Reading Time Taken Comments Blood Pressure 121/93 01/08/2019 8:19 AM EDT Pulse 67 01/08/2019 8:19 AM EDT Temperature 36.4 C (97.6 F) 01/08/2019 7:20 AM EDT Respiratory Rate 13 01/08/2019 8:19 AM EDT Oxygen Saturation 96% 01/08/2019 8:19 AM EDT Inhaled Oxygen Concentration - - Weight 113.4 kg (250 lb) 01/08/2019 7:20 AM EDT Height 193 cm (6' 4 ) 01/08/2019 7:20 AM EDT Body Mass Index 30.43 01/08/2019 7:20 AM EDT Plan of Treatment Health Maintenance Due Date Last Done Comments Depression Screening 1975 Tobacco Screening 1975 Adult BMI Screening 1981 DTaP,Tdap and Td Vaccines (1 - Tdap) 1982 Zoster (Shingles) Vaccine (1 of 2) 2013 COVID-19 Vaccine (3 - season) 03/22/202412/2020, 10/04/2020 Influenza Vaccine 03/22/2025 06/03/2018, 06/03/2018 Medical Devices Not on file Insurance Care Teams Roller Maker Relationship Specialty Start Date End Date Adiel Law APRN-CNP [address] [place] [address] PCP - General Primary Care 04/22/23
--- OUTSIDE RECORDS SUMMARY | 2024-12-25 07:57 | XMS_ITS | Patient Health Record ---
Author Organization [facility] in [place] Address [address] [place] [address] Care Team Providers Care Community Relations Specialist Name Role Phone BERTA HERRERA CNP Primary Care Provider 182 Dinesh Gonzalez Unavailable [phone] Berta Herrera Unavailable [phone] Allergies No Known Allergies Results Component Value Reference Range Notes CRP Reviewed date:02/05/2024 11:36:24 AM Interpretation: Performing Lab: Notes/Report: [facility] , C Reactive Protein <0.50 <=0.50 mg/dL Performing Lab: see note ML - [facility] LB INSULIN Reviewed date:05/14/2024 10:39:47 AM Interpretation: Performing Lab: Notes/Report: [facility] , Insulin 18.1 2.6-24.9 uIU/mL Management Manager: Noah Garcia PhD, Phone: [phone] Performed at: CB - [facility] [address] [id number] Performing Lab: see note LC - [facility] LB PROF 14(COMP METB) Reviewed date:05/14/2024 10:39:47 AM Interpretation: Performing Lab: Notes/Report: [facility] , Sodium 142 136-145 mmol/L Potassium 4.5 3.5-5.1 mmol/L Chloride 105 98-107 mmol/L Carbon Dioxide 29.5 21.0-32.0 mmol/L Anion Gap 12.0 Glucose 142 74-106 mg/dL Blood Urea Nitrogen 13.0 7.0-18.0 mg/dL Creatinine 1.20 0.70-1.30 mg/dL Estimated GFR ( Katherin >60 >=60 mL/min/1.73m 2 Estimated GFR (Non- Lexy >60 >=60 mL/min/1.73m 2 BUN Creatinine Ratio 10.8 Calcium 9.2 8.5-10.1 mg/dL Bilirubin Total 0.6 0.2-1.0 mg/dL Aspartate Amino Transferase 33 15-37 U/L Alanine Aminotransferase 64 16-63 U/L Alkaline Phosphatase 70 46-116 U/L Total Protein 6.9 6.4-8.2 g/dL Albumin Level 3.7 3.4-5.0 g/dL Globulin 3.2 Albumin Globulin Ratio 1.2 Performing Lab: see note ML - [facility] LB XR lumbar spine min 4V Reviewed date:04/27/2024 09:33:50 AM Interpretation: Performing Lab: Notes/Report: Source Facility: [facility] [place] [address] [place] [address] XRay Report Signed Patient: JUAN FRANCISCO PHILLIPS MR#: [id number] : 1965 Acct:[id number] Age/Sex: 58 / M ADM Date: 04/24/24 Loc: EC Attending Dr: Meg Walters M.D. Ordering Physician: Meg Walters M.D. Date of Service: 04/24/24 Procedure(s): XR lumbar spine min 4V Accession Number(s): [id number] cc: BERTA HERRERA ; Meg Walters M.D. [place] [address] Patient Name: JUAN FRANCISCO PHILLIPS MRN: [id number] date: 1965 Sex: M Assigned Patient Location: Current Patient Location: Accession/Order Number: [id number] Exam Date: 04/24/2024 08:42 Report Date: 04/26/2024 06:38 At the request of: MEG WALTERS Procedure: XR lumbar spine min 4V EXAMINATION: XR lumbar spine min 4V HISTORY: LUMBAR SPINE PAIN COMPARISON: XR L-spine 12/04/2023 FINDINGS: BONES: Mild degenerative facet arthropathy L4-L5, L5-S1. No fracture, spondylolisthesis, or change in alignment during flexion and extension. DISC SPACES: Marked narrowing L5-S1 with complete loss of disc space. PARASPINOUS: Negative. No paraspinous abnormality is seen. OTHER: Negative. XR/XR lumbar spine min 4V IMPRESSION: 1. L5-S1 stable marked degenerative disc disease and mild degenerative facet arthropathy. 2. Normal height and alignment of vertebral bodies; no change in alignment during flexion and extension. Electronically authenticated by: VICTOR MANUEL RICHTER Date: 04/26/2024 06:38 Dictated By: Victor Manuel Richter M.D. Signed By: 04/26/24639 DD/ 7 TD/TT: Family Resource Coordinator: [place] [address] XRay Report Signed Patient: JUAN FRANCISCO PHILLIPS MR#: [id number] : 1965 Acct:[id number] Age/Sex: 58 / M ADM Date: 04/24/24 Loc: EC Attending Dr: Meg Walters M.D. Ordering Physician: Meg Walters M.D. Date of Service: 04/24/24 Procedure(s): XR lum bar spine min 4V Accession Number(s): [id number] cc: BERTA HERRERA ; Meg Walters M.D. [place] [id number] Patient Name: JUAN FRANCISCO PHILLIPS MRN: [id number] date: 1965 Sex: M Assigned Patient Location: Current Patient Location: Accession/Order Numb er: [id number] Exam Date: 08:42 Report Date: 04/26/2024 06:38 At the request of: MEG WALTERS Procedure: XR lumbar spine min 4V EXAMINATION: XR lumb ar spine min 4V HISTORY: LUMBAR SPIN E PAIN COMPARISON: XR L-spi ne 12/04/2023 FINDINGS: BONES: Mild degenera tive facet arthropathy L4-L5, L5-S1. No fracture, spondylolisthesis, o r change in alignment during flexion and extension. DISC SPACES: Marked narrowing L5-S1 with complete loss of disc space. PARASPINOUS: Negativ e. No paraspinous abnormality is seen. OTHER: Negative. X R/XR lumbar spine min 4V IMPRESSION: 1. L5-S1 stable alex ed degenerative disc disease and mild degenerative facet arthropathy. 2. Normal height and alignment of vertebral bodies; no change in alignment during flexion and extension. Electronically authenticated by: VICTOR MANUEL RICHTER Date: 04/26/2024 06:38 Dictated By: Victor Manuel Richter M.D. Signed By: 04/26/24639 DD/ 7 TD/TT: Family Resource Coordinator: MR lumbar spine wo con Reviewed date:03/05/2024 03:45:44 PM Interpretation: Performing Lab: Notes/Report: Source Facility: [place] [address] Magnetic Resonance Report Signed Patient: JUAN FRANCISCO PHILLIPS MR#: [id number] : 1965 Acct:[id number] Age/Sex: 58 / M ADM Date: 03/05/24 Loc: MRI Attending Dr: Marci WHITESIDE Ordering Physician: Marci Ponce Date of Service: 03/05/24 Procedure(s): MR lumbar spine wo con Accession Number(s): [id number] cc: BERTA HERRERA ; Marci Ponce [place] [address] Patient Name: JUAN FRANCISCO PHILLIPS MRN: [id number] date: 1965 Sex: M Assigned Patient Location: MRI Current Patient Location: MRI Accession/Order Number: [id number] Exam Date: 03/05/2024 07:55 Report Date: 03/05/2024 10:52 At the request of: MARCI PONCE Procedure: MR lumbar spine wo con MR lumbar spine wo con, 03/05/2024 7:55 AM EDT INDICATION: Lumbar Back Pain With Radiculopathy Affecting Left Lower Ext COMPARISON: Prior x-ray of the lumbar spine dated 12/04/2023 TECHNIQUE: Multiplanar, multisequential MRI images of lumbar spine were obtained without contrast. FINDINGS: For dictation purposes, the lowest complete disc space in the lumbar spine considered as L5-S1. There is loss of normal physiologic lumbar lordosis. The vertebral height is preserved. Possible nonobstructing nephrolithiasis in the superior pole of the right kidney. It measures approximately 4 mm. The conus medullaris is at the level of L1. No signal abnormality within the visualized spinal cord is noted. Level of T12-L1 is unremarkable. No neural foraminal narrowing or canal stenoses at the level of L1-L2 and L2-L3 is noted. At the level of L3-4, there are disc bulge with mild bilateral neuroforaminal narrowing and mild canal stenosis. At the level of L4-5, there are disc bulge with superimposed central protrusion and right lateral and neuroforaminal annular fissure with mild to moderate bilateral neuroforaminal narrowing and severe canal stenosis. There is focal epidural lipomatosis and ligamentum flavum thickening and facet joint arthrosis at this level. At the level of L5-S1, there are disc osteophyte complex with superimposed central protrusion with mild bilateral neuroforaminal narrowing and no canal stenosis. Right S1 nerve root is in close contact with the disc osteophyte complex in the lateral recess. The paraspinal muscles are unremarkable. MR/MR lumbar spine wo con IMPRESSION: Moderate degenerative changes of lumbar spine in particular at L4-L5 and L5-S1. Possible nonobstructing nephrolithiasis in the superior pole of the right kidney. An ultrasound may be helpful for further evaluation. Electronically authenticated by: ÁNGEL PATTON Date: 03/05/2024 10:52 Dictated By: Ángel Patton M.D. Signed By: 03/05/24 1054 DD/ 1052 TD/TT: Family Resource Coordinator: [place] [address] Magnetic Resonance Report Signed Patient: JUAN FRANCISCO PHILLIPS MR#: [id number] : 1965 Acct:[id number] Age/Sex: 58 / M ADM Date: 03/05/24 Loc: MRI Attending Dr: Rajendra WHITESIDE Ordering Physician: Marci Ponce Date of Service: 03/05/24 Procedure(s): MR lum bar spine wo con Accession Number(s): [id number] cc: BERTA HERRERA ; Marci Ponce [address] [address] Patient Name: JUAN FRANCISCO PHILLIPS MRN: [id number] date: 1965 Sex: M Assigned Patient Location: MRI Current Patient Location: MRI Accession/Order Numb er: [id number] Exam Date: 03/05/2024 07:55 Report Date: 03/05/2024 10:52 At the request of: MARCI PONCE Procedure: MR lumbar spine wo con MR lumbar spine wo c on, 03/05/2024 7:55 AM EDT INDICATION: Lumbar B ack Pain With Radiculopathy Affecting Left Lower Ext COMPARISON: Prior x- ray of the lumbar spine dated 12/04/2023 TECHNIQUE: Multiplan ar, multisequential MRI images of lumbar spine were obtained without contrast. FINDINGS: For dictation purpos es, the lowest complete disc space in the lumbar spine considered as L5-S1. There is loss of nor mal physiologic lumbar lordosis. The vertebral height is preserved. Possible nonobstruct ing nephrolithiasis in the superior pole of the right kidney. It measures approximately 4 mm. The conus medullaris is at the level of L1. No signal abnormality within the visualized spinal co rd is noted. Level of T12-L1 is unremarkable. No neural foraminal narrowing or canal stenoses at the level of L1-L2 and L2-L3 is noted. At the level of L3-4 , there are disc bulge with mild bilateral neuroforaminal narrowing and mild c anal stenosis. At the level of L4-5 , there are disc bulge with superimposed central protrusion and right lateral an d neuroforaminal annular fissure with mild to moderate bilateral neuroforam inal narrowing and severe canal stenosis. There is focal epidural lipomatosis and ligamentum flavum thickening and facet joint arthrosis at this level. At the level of L5-S 1, there are disc osteophyte complex with superimposed central protrusion w ith mild bilateral neuroforaminal narrowing and no canal stenosis. Right S1 nerve root is in close contact with the disc osteophyte complex in the lateral recess. The paraspinal muscl es are unremarkable. M R/MR lumbar spine wo con IMPRESSION: Moderate degenerativ e changes of lumbar spine in particular at L4-L5 and L5-S1. Possible nonobstruct ing nephrolithiasis in the superior pole of the right kidney. An ultrasoun d may be helpful for further evaluation. Electronically authenticated by: ÁNGEL PATTON Date: 03/05/2024 10:52 Dictated By: Ángel Patton M.D. Signed By: 03/05/24 1054 DD/ 51 TD/TT: Family Resource Coordinator: Erythrocyte Sedimentation Ra te Reviewed date:02/05/2024 11:36:24 AM Interpretation: Performing Lab: Notes/Report: [facility] , Erythrocyte Sedimentation Rate 40 <=20 mm/hr Performing Lab: see note ML - [facility] LB CBC AUTO DIFF Reviewed date:02/05/2024 11:36:24 AM Interpretation: Performing Lab: Notes/Report: [facility] , White Blood Count 6.3 4.0-11.0 10 3/uL Red Blood Count 5.25 4.70-6.10 10 6/uL Hemoglobin 14.9 14.0-18.0 g/dL Hematocrit 45.7 42.0-54.0 % Mean Corpuscular Volume 87.0 80.0-94.0 fL Mean Corpuscular Hemoglobin 28.4 25.9-34.0 pg Mean Corpuscular HGB Conc 32.6 29.9-35.2 g/dL Red Cell Distribution Width 12.6 11.0-15.0 % Platelet Count 244 150-450 10 3/uL Mean Platelet Volume 9.5 9.5-13.5 fL Neutrophils Percent Auto 61.6 43.0-75.0 % Lymphocytes Percent Auto 27.5 20.5-60.0 % Monocytes Percent Auto 8.8 1.7-12.0 % Eosinophils Percent Auto 1.4 0.9-7.0 % Basophils Percent Auto 0.5 0.2-2.0 % Immature Granulocytes Pct Auto 0.2 0.0-0.5 % Neutrophils Absolute Auto 3.9 1.4-6.5 10 3/uL Lymphocytes Absolute Auto 1.7 1.2-3.8 10 3/uL Monocytes Absolute Auto 0.6 0.3-0.8 10 3/uL Eosinophils Absolute Auto 0.1 0.0-0.7 10 3/uL Basophils Absolute Auto 0.0 0.0-0.1 10 3/uL Immature Granulocytes Abs Auto 0.01 0.00-0.03 10 3/uL Performing Lab: see note ML - [facility] LB XR lumbar spine 2-3V Reviewed date:09/02/2024 12:51:25 PM Interpretation: Performing Lab: Notes/Report: Source Facility: [place] [address] XRay Report Signed Patient: JUAN FRANCISCO PHILLIPS MR#: [id number] : 1965 Acct:[id number] Age/Sex: 59 / M ADM Date: 08/28/24 Loc: EC Attending Dr: Meg Walters M.D. Ordering Physician: Meg Walters M.D. Date of Service: 08/28/24 Procedure(s): XR lumbar spine 2-3V Accession Number(s): [id number] cc: BERTA HERRERA ; Meg Walters M.D. [place] [address] Patient Name: JUAN FRANCISCO PHILLIPS MRN: [id number] date: 1965 Sex: M Assigned Patient Location: Current Patient Location: Accession/Order Number: [id number] Exam Date: 08/28/2024 08:51 Report Date: 08/31/2024 08:14 At the request of: MEG WALTERS Procedure: XR lumbar spine 2-3V EXAMINATION: XR lumbar spine 2-3V HISTORY: LUMBAR SPINE PAIN COMPARISON: No relevant comparison available. FINDINGS: BONES: Normal alignment with no acute fracture or spondylolisthesis. Posterior decompression and transpedicular fusion L4-S1 with no mechanical failure. Mild degenerative spondylosis and facet osteoarthropathy DISC SPACES: Multilevel disc space narrowing PARASPINOUS: Negative. No paraspinous abnormality is seen. OTHER: Negative. XR/XR lumbar spine 2-3V IMPRESSION: L4-S1 fusion with no mechanical failure. Electronically authenticated by: HEATHER MOLINA Date: 08/31/2024 08:14 Dictated By: Heather Molina M.D. Signed By: 08/31/24815 DD/ 3 TD/TT: Family Resource Coordinator: [place] [address] XRay Report Signed Patient: JUAN FRANCISCO PHILLIPS MR#: [id number] : 1965 Acct:[id number] Age/Sex: 59 / M ADM Date: 08/28/24 Loc: EC Attending Dr: Meg Walters M.D. Ordering Physician: Meg Walters M.D. Date of Service: 08/28/24 Procedure(s): XR lum bar spine 2-3V Accession Number(s): [id number] cc: BERTA HERRERA ; Meg Walters M.D. [place] [address] Patient Name: JUAN FRANCISCO PHILLIPS MRN: [id number] date: 1965 Sex: M Assigned Patient Location: Current Patient Location: Accession/Order Numb er: [id number] Exam Date: 08/28/2024 08:51 Report Date: 08/31/2024 08:14 At the request of: MEG WALTERS Procedure: XR lumbar spine 2-3V EXAMINATION: XR lumb ar spine 2-3V HISTORY: LUMBAR SPIN E PAIN COMPARISON: No relev ant comparison available. FINDINGS: BONES: Normal alignm ent with no acute fracture or spondylolisthesis. Posterior decompression and transpedicular fusion L4-S1 with no mechanical failure. Mild degenerative spondyl osis and facet osteoarthropathy DISC SPACES: Multile basil disc space narrowing PARASPINOUS: Negativ e. No paraspinous abnormality is seen. OTHER: Negative. X R/XR lumbar spine 2-3V IMPRESSION: L4-S1 fusion with no mechanical failure. Electronically authenticated by: HEATHER MOLINA Date: 08/31/2024 08:14 Dictated By: Ghassan Molina M.D. Signed By: 08/31/24815 DD/ 3 TD/TT: Family Resource Coordinator: GLYCOHEMOGLOBIN A1C Reviewed date:05/14/2024 10:39:47 AM Interpretation: Performing Lab: Notes/Report: [facility] , Glycohemoglobin A1C 6.0 4.5-6.2 % ADA THERAPEUTIC TARGET < 7.0 > 7.0 ADA RECOMMENDED LIMIT 4.0 - 6.0 ACTION SUGGESTED Estimated Average Glucose 126 Performing Lab: see note ML - [facility] LB Reason For Referral No Information Medications Medication SIG (Take, Route, Frequency, Duration) Notes Start Date End Date Status Lisinopril 20 MG take 1 tablet by luis carlos th once daily for 90 Active amLODIPine Besylate 5 MG 1 tablet Orally Once a day for 90 days Active Allopurinol 100 MG 1 tablet Orally Once a day for 30 days Active Tamsulosin HCl 0.4 MG 1 capsule Orally O nce a day for 90 days Active Pravastatin Sodium 40 MG take 1 tablet b y mouth once daily for 90 days Active Social History Tobacco Use: Social History Observation Description Date Details (start date - stop date) Never Smoker NA - NA Tobacco Control (Standard) Question Answer Notes Tobacco use: Nonsmoker AUDIT-C (Standard) Question Answer Notes Did you have a drink contain ing alcohol in the past year? Yes How often did you have six o r more drinks on one occasion in the past year? Less than monthly (1 point) How many drinks did you have on a typical day when you were drinking in the past year? 3 or 4 drinks (1 point) How often did you have a dri nk containing alcohol in the past year? 2 to 4 times a month (2 points) Points 4 Interpretation Positive Problems Problem Type SNOMED Code ICD Code Onset Dates Problem Status W/U Status Risk Notes Problem Pre-diabetes (R73.09) Active confirmed Vital Signs Heart Rate 72 /min 2024 Temperature 97.7 degrees Fahrenheit 03/10/2024 Oximetry 98 % 03/10/2024 Blood pressure diastolic 76 mm Hg 2024 Height 75 in 2024 Blood pressure systolic 122 mm Hg 2024 Weight 250.2 lbs 2024 BMI 31.27 kg/m2 2024 Encounters Encounter Location Date Provider Diagnosis [facility] [address] [facility] [place] [address] 02/05/2024 Berta Herrera [facility] [address] [facility] [place] [address] 05/14/2024 Berta Herrera [facility] [address] [facility] [place] [address] 06/04/2024 Dinesh Gonzalez [facility] [address] [facility] [place] [address] 2024 Berta Herrera [facility] [address] [facility] [place] [address] 03/10/2024 Berta Herrera Viral illness B34.9 [facility] [address] [facility] [place] [address] 05/12/2024 Berta Herrera Pre-diabetes R73.09 ; Wellness examination Z00.00 and Lump R22.9 [facility] [address] [facility] [place] [address] 2024 Berta Herrera Pre-op evaluation Z01.818 Assessments Encounter Date Diagnosis (ICD Code) Assessment Notes Treatment Notes Treatment Clinical Notes Section Notes 05/12/2024 Pre-diabetes (ICD-10 - R73.09) 05/12/2024 Wellness examination (ICD-10 - Z00.00) ROS done exam done some labs ordered 03/10/2024 Viral illness (ICD-10 - B34.9) improving some continue monitor COVID testing may not be accurate this far out, too late for antiviral if cough worsens, notify office 2024 Pre-op evaluation (ICD-10 - Z01.818) ROS done exam done labs reviewed- ok chest xray WNL EKG SB with 1st degree AVB ok for surgery 05/12/2024 Lump (ICD-10 - R22.9) calling urology for fu- small lump testicle, getting smaller offered US of scrotum, call office if needed Plan Of Treatment Pending Test Test Name Order Date CMP (COMPLETE METABOLIC PANEL) HEMOGLOBIN A1C (GLYCO) 11/21/2023 HEMOGLOBIN A1C (GLYCO) 05/12/2024 INSULIN, TOTAL 05/12/2024 INSULIN, TOTAL 11/21/2023 LIPID PANEL (CHOL/TRIG/HDL/LDL) 11/21/19 24 PSA, PROSTATE-SPECIFIC ANTIGEN 4 Insurance Providers Payer Name Payer Address Payer Phone Subscriber Number Group Number Insured Name Patient Relationship to Insured Coverage Start Date Coverage End Date [employer] [address] ATTN CLAIMS [place], [place] [id number] Juan Francisco Phillips Self - patient is the insured Medical (General) History Medical History History ICD Code gout hypertension hyperlipidemia Surgical History Surgery Date(Month/Year) hernia lower abdomen 2021 left knee replacement right hip replacement total right knee replacement
--- OUTSIDE RECORDS SUMMARY | 2024-12-25 07:57 | XMS_ITS | Encounter Summary ---
Author Organization [facility] Address [address] [place] [address] Care Team Providers Care Land Resource Specialist Name Role Phone Colt Frazier MD Primary Care Provider [phone] Reason for Visit * Reason Comments Med Refill Encounter Details Date Type Department Care Team (Late st Contact Info) Description 12/07/2023 Refill [facility] [address] [place] [address] Charity Pritchett G, DO [address] [facility] [address] [place] [address] Social History Tobacco Use Types Packs/Day Years Used Date Smoking Tobacco: Never Smokeless Tobacco: Never Alcohol Use Standard Drinks/Week Comments Yes 0 (1 standard drink = 0.6 oz pur e alcohol) caffeine intake:2-3 cups/day Sex and Gender Information Value Date Recorded Sex Assigned at Not on file Legal Sex Male 6:57 PM EDT Gender Identity Male 10/03/2022 6:57 PM EDT Sexual Orientation Not on file documented as of this encounter Miscellaneous Notes * Telephone Encounter - Hiwot Flores MA - 12/09/2023 8:50 AM EDT We are not his provider documented in this encounter Plan of Treatment Upcoming Encounters Date Type Department Care Team (Late st Contact Info) Description 06/10/2025 8:00 AM EST Office Visit [facility] [address] [place] [address] James Ponce PA [address] [address] 07/25/2026 8:00 AM EST Office Visit [facility] [address] [facility] [address] [place] [address] James Ponce, PA [address] [address] documented as of this encounter Visit Diagnoses Not on filedocumented in this encounter Care Teams Land Resource Specialist Relationship Specialty Start Date End Date Colt Frazier MD [address] [place] [address] PCP - General Family Medicine 11/30/22 documented as of this encounter
--- OUTSIDE RECORDS SUMMARY | 2024-12-25 07:57 | XMS_ITS | Encounter Summary ---
Author Organization [facility] Address [address] [place] [address] Care Team Providers Care Supply Chain Assistant Name Role Phone Colt Frazier MD Primary Care Provider [phone] Encounter Details Date Type Department Care Team (Late Contact Info) Description 12/30/2022 Abstract [facility] [address] [facility] [address] [place] [address] James Ponce PA [address] [facility] [address] [place] [address] Social History Tobacco Use Types Packs/Day Years Used Date Smoking Tobacco: Never Smokeless Tobacco: Never Tobacco Cessation:Counseling Given: Not Answered Alcohol Use Standard Drinks/Week Comments Yes 0 [...] suspected to have Coronavirus/COVID-19? No / Unsure 12/30/2022 9:46 AM EDT documented as of this encounter Plan of Treatment Upcoming Encounters Date Type Department Care Team (Late Contact Info) Description 06/10/2025 8:00 AM EST Office Visit [facility] [address] [place] [address] James Ponce PA 112 [facility] [address] [place] [address] 07/25/2026 8:00 AM EST Office Visit [facility] [address] [facility] [address] [place] [address] James Ponce PA 112 [facility] [address] [place] [address] documented as of this encounter Visit Diagnoses Not on filedocumented in this encounter Care Teams Supply Chain Assistant Relationship Specialty Start Date End Date Colt Frazier MD [address] [place] [address] PCP - General Family Medicine 11/30/22 documented as of this encounter
--- OUTSIDE RECORDS SUMMARY | 2024-12-25 07:57 | XMS_ITS | Encounter Summary ---
Author Organization [facility] Address [address] [facility] [place] [address] Care Team Providers Care Glost Placer Name Role Phone Colt Frazier MD Primary Care Provider [phone] Encounter Details Date Type Department Care Team (Late Contact Info) Description 12/28/2022 Abstract [facility] 112 [facility] [address] [place] [address] Jr. Rodolfo Keller DO 112 [facility] [address] [place] [address] Social History Tobacco Use Types Packs/Day Years [...] Office Visit [facility] [address] [facility] [address] [place] [address] James Ponce, PA 112 [facility] [address] [place] [address] 07/25/2026 8:00 AM EST Office Visit [facility] [address] [facility] [address] [place] [address] James Ponce, PA 112 [facility] [address] [place] [address] documented as of this encounter Visit Diagnoses Not on filedocumented in this encounter Care Teams Glost Placer Relationship Specialty Start Date End Date Colt Frazier MD [address] [place] [address] PCP - General Family Medicine 11/30/22 documented as of this encounter
--- OUTSIDE RECORDS SUMMARY | 2024-12-25 07:57 | XMS_ITS | Clinical Summary ---
Author Organization [facility] Healthcare Address [address] [place] [address] Care Team Providers Care Piano Professor Name Role Phone Colt Frazier MD Primary Care Provider [phone] Allergies No known active allergies Medications esomeprazole (NexIUM) [address] capsule 1 tablet Oral one or 2 times weekly Active allopurinol (Zyloprim) 100 MG tablet Take 150 mg by mouth in the morning. 3 Active amLODIPine (Norvasc) 10 MG tablet Take 10 mg by mouth in the morning. Active atorvastatin (Lipitor) 20 MG tablet Take 20 mg by mouth in the morning. Active lisinopril 20 MG tablet Take 20 mg by mouth in the morning. Active pravastatin (Pravachol) 40 MG tablet Take 40 mg by mouth in the morning. Active tamsulosin (Flomax) 0.4 MG 24 hr capsule Take 0.4 mg by mouth in the morning. Active amoxicillin (Amoxil) 500 MG tabletIndication s:Status post hip replacement, unspecified laterality 4 tabs PO once 30-60 mins before procedure with food 4 tablet 3 3 Active amLODIPine (Norvasc) 5 MG tablet Take 5 mg by mouth Daily 4 Active Active Problems Problem Noted Date Diagnosed Date Acute idiopathic gout of left ankle 04/22/2023 Arthritis of knee, left 04/22/2023 Arthritis of right knee 04/22/2023 Arthritis of right hip 04/22/2023 Osteoarthritis of right hip 04/22/2023 Artificial knee joint present 04/22/2023 Incarcerated umbilical hernia 04/22/2023 Overweight (BMI 25.0-29.9) 04/22/2023 Pain in right knee 04/22/2023 Periumbilical pain 04/22/2023 Primary osteoarthritis 04/22/2023 Status post total hip replacement, right 023 Status post total knee replacement 04/22/2023 Family history of diabetes mellitus 04/11/2021 Overweight 04/11/2021 Prediabetes 04/11/2021 Primary localized osteoarthritis of pelvic regio n and thigh 06/24/2019 Generalized anxiety disorder 07/18/2018 Gouty arthritis 12/02/2017 Primary hypertension 09/25/2017 Primary osteoarthritis of left knee 10/09/2016 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 lumbar intervertebral disc 10/08/2016 Mixed hyperlipidemia 09/23/2016 Gastroesophageal reflux disease without esophagi tis 09/20/2016 Other chronic pain 09/20/2016 Immunizations Immunization Administration Dates Next Due Influenza, seasonal, intradermal, preservative f ree 06/03/2018 Family History Medical History Relation Name Comments Diabetes Brother Diabetes Father Gout Father Hypertension Father Parkinsonism Father cervical spine fracture Father gout Father hypoglycema Father hypoglycemia Father Colon cancer Maternal Grandfather Diabetes Maternal Grandmother Diabetes Mother Hypertension Mother Kidney failure Mother Colon cancer Paternal Grandfather Relation Name Status Comments Brother Father Maternal Grandfather Maternal Grandmother Mother Paternal Grandfather Social History Tobacco Use Types Packs/Day Years [...] PM EDT Sexual Orientation Not on file Last Filed Vital Signs Vital Sign Reading Time Taken Comments Blood Pressure 140/84 03/20/2022 12:00 PM EDT Pulse - - Temperature - - Respiratory Rate - - Oxygen Saturation - - Inhaled Oxygen Concentration - - Weight 109 kg (240 lb) 04/22/2023 9:04 AM EDT Height 190.5 cm (6' 3 ) 04/22/2023 9:04 AM EDT Body Mass Index 30 04/22/2023 9:04 AM EDT Plan of Treatment Upcoming Encounters Date Type Department Care Team (Late st Contact Info) Description 06/10/2025 8:00 AM EST Office Visit [facility] [address] [place] [phone] James Ponce PA [address] [place] [address] 07/25/2026 8:00 AM EST Office Visit [facility] [address] [place] [address] James Ponce PA [address] [place] [address] Health Maintenance Due Date Last Done Comments CT Colonography 1963 FIT-DNA 1963 FIT 1965 FOBT 1965 Sigmoidoscopy 1965 Influenza Vaccine (Season Ended) 2025 05/09/20, 06/03/2018 Colonoscopy 01/08/2029 01/08/2019, 08/13/2013 Colorectal Cancer Screening 01/08/2029 Procedures Procedure Name Priority Date/Time Associated Diagnosis Comments COLONOSCOPY Routine 01/08/2019 12:00 PM EDT from Last 3 Months or Most Recently Relevant to Health Maintenance Results * Colonoscopy (01/08/2019 12:00 PM EDT) Anatomical Region Laterality Modality Endoscopy 01/08/2019 12:0 0 PM EDT Narrative 01/08/2019 12:00 PM EDT PERFORMED AT [facility] LOCATION:[id number] Procedure Note CONVERSION, GENERIC - 12/05/2022 PERFORMED AT [facility] LOCATION:[id number] us Navdeep Amador MD ENDOSCOPY PROCEDURE ORDERABL ES Final Result from Last 3 Months or Most Recently Relevant to Health Maintenance Insurance [employer] Care Teams Piano Professor Relationship Specialty Start Date End Date Colt Frazier MD [address] [place] [address] PCP - General Family Medicine 11/30/22
--- OUTSIDE RECORDS SUMMARY | 2024-12-25 07:57 | XMS_ITS | Patient Health Record ---
Author Organization [facility] Address [address] [place] [address] Care Team Providers Care Personal Lines Insurance Advisor Name Role Phone Rodolfo Keller JR, DO Primary Care Provider Radha vailable Meg Xie Unavailable [phone] Elissa Vear Unavailable [phone] Allergies No Known Allergies Results Component Value Reference Range Notes EKG 12-LEAD Reviewed date:07/13/2024 10:47:21 AM Interpretation: Performing Lab: Notes/Report: [facility] [address] [address], Original Ordering Provider: Mel ZEPEDA Provider Role: Ordering XR CHEST STANDARD TWO VW Reviewed date:07/13/2024 10:47:21 AM Interpretation: Performing Lab: Notes/Report: PROCEDURE: XR CHEST (2 VW) [place] [address] [address], Original Ordering Provider: Mel ZEPEDA Provider Role: Ordering Surgery Scheduling (Not yet reviewed by provider) Interpretation:Pre-Op orders: CBC,BMP,PT/PTT, TYPE AND SCREEN,EKG,Chest X- ray,MRSA PCR NASAL SWAB Performing Lab: Notes/Report: Pre-Op orders: CBC,BMP,PT/PTT, TYPE AND SCREEN,EKG,Chest X-ray,MRSA PCR NASAL SWAB Primary Insurance Company: [employer] THOMSON Surgeon/Assist: ST CHOI/BRITTANI OR MADELINE Surgery Location: [facility] Surgery Date & Time: 06/30/24 @ 1:45PM Hosp arrival time day of: 11:45PM Surgery End Time: 4:45PM Procedure: L4-S1 DECOMPRESSION AND FUSION, L4-5 TLIF Special Equipment: SSEP,PRONE, ABBY TABLE, SURGALIGN Diagnosis: M51.370 DDD LUMBAR Admission Type: INPATIENT Anesthesia Type/CPNB: GENERAL Post-op Appointment Date: 08/28/24 @ 10:10AM JERMAINE Lab Location: [facility] Lab Date/Time: 06/26/24 @ 1:15PM Sales Operations Associate: CHIQUITA Frias Physician: SEMAJ Frias Appt Date/T *04/14 @ 10AM History & Physical Appointment Date/: 07/03/24 @ 12:10PM DJ Prothrombin Time Reviewed date:07/08/2024 03:19:41 PM Interpretation: Performing Lab: Notes/Report: [facility] [address] [place] [address] Original Ordering Provider: MD MEG XIE PHD, Interested Provider Role: Ordering PROTHROMBIN TIME, INR 1.05 0.85-1.13 Mechanical prosthetic valves 2.5 to 3.5 DVT, PE, AF, AMI, tissue heart valve 2.0 to 3.0 ---------INDICATION-- INR Reference Range CBC NO DIFFERENTIAL Reviewed date:07/08/2024 03:19:41 PM Interpretation: Performing Lab: Notes/Report: [facility] [address] [place] [address] Original Ordering Provider: MD MEG XIE PHD, Interested Provider Role: Ordering WBC 6.4 4.8-10.8 thou/mm3 RBC 5.66 4.70-6.10 mill/mm3 HEMOGLOBIN 16.4 14.0-18.0 gm/dl HEMATOCRIT 49.9 42.0-52.0 % MCV 88.2 80.0-94.0 fL MCH 29.0 26.0-33.0 pg MCHC 32.9 32.2-35.5 gm/dl RDW-CV 12.6 11.5-14.5 % RDW-SD 41.0 35.0-45.0 fL PLATELET 266 130-400 thou/mm3 MPV 9.7 9.4-12.4 fL Basic Metabolic Panel Reviewed date:07/08/2024 03:19:41 PM Interpretation: Performing Lab: Notes/Report: [facility] [address] [place] [address] Original Ordering Provider: MD MEG XIE PHD, Interested Provider Role: Ordering SODIUM 139 135-145 meq/L POTASSIUM 4.8 3.5-5.2 meq/L CHLORIDE 102 98-111 meq/L CO2 25 23-33 meq/L GLUCOSE 109 70-108 mg/dL BUN 17 7-22 mg/dL CREATININE 1.0 0.4-1.2 mg/dL CALCIUM 9.8 8.5-10.5 mg/dL APTT Reviewed date:07/08/2024 03:19:41 PM Interpretation: Performing Lab: Notes/Report: [facility] [address] [place] [address] Original Ordering Provider: MD MEG XIE PHD, Interested Provider Role: Ordering APTT 33.2 22.0-38.0 seconds Therapeutic Heparin Reference Range= 60-95 seconds (corresponds to 0.3 to 0.7 u/mL Anti-Xa factor activity) Anion Gap Reviewed date:07/08/2024 03:19:41 PM Interpretation: Performing Lab: Notes/Report: [facility] [address] [place] [address] Original Ordering Provider: MD MEG XIE PHD, Interested Provider Role: Ordering ANION GAP 12.0 8.0-16.0 meq/L ANION GAP = S odium -(Chloride + CO2) EGFR1 Reviewed date:07/08/2024 03:19:41 PM Interpretation: Performing Lab: Notes/Report: [facility] [address] [place] [address] Original Ordering Provider: MD MEG XIE PHD, Interested Provider Role: Ordering ESTIMATED GFR 86 >60 ml/min/1.73m2 using the 2020 CKD-EPI equation. Careful clinical https://www.kidney.or g/professionals/kdoqi /gfr_calculatorped <18 years of age. These results are not intended for use in patients Pediatric calculator link Effective Apr 23, 2022 creatinine, excessive creatine ingestion, or following CKD-EPI equation is less accurate in patients with therapy that affects renal tubular secretion. to results calculated using previous equations. The extremes of muscle mass, extra-renal metabolism of correlation is recommended, particularly when comparing eGFR results are calculated without a race factor Performing Lab: see note [facility] - New POS on [facility] [address] [place], [place] [id number] Kumar Vela MRSA by PCR Reviewed date:07/08/2024 03:19:41 PM Interpretation: Performing Lab: Notes/Report: Original Ordering Provider: MD MEG XIE PHD, Interested Provider Role: [place] [address] [address] [facility] MRSA SCREEN RT-PCR NEGATIVE No MRSA detected by Real Time - Polymerase Chain Reaction. Specimen Source: Urmila Performing Lab: see note [facility] - New [facility] [address] [facility] [address] Kumar Vela XR LUMBAR SPINE 1 VW Reviewed date:07/08/2024 03:19:37 PM Interpretation: Performing Lab: Notes/Report: PROCEDURE: XR LUMBAR SPINE 1 VW [facility] [address] [place], [place] [address], Original Ordering Provider: MEG XIE, Interested Provider Role: Ordering Reason For Referral Reason UPDATED............. 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) Referra l [facility] Referri ng Provide r First Name Meg Referri ya Provide r Last Name St Choi Referjoshua pandya Provide r Special ity Orthopedic Surgery Referre d [facility] Referre d Address [address] [place], [place],[id number],[place] Procedu re 1 Arthrodesis, PLIF w/ PSF including marissa ectomy and/or discectomy, sufficient to prepare interspace (other than for decompression), single interspace and segment; lumbar (80437) Procedu re 2 Arthrodesis single, each addn'l level, p osteriolateral technique (44756) Procedu re 3 PARRISH FACETC/FRMT ARTHRD LUM 1 (24797) Procedu re 4 PARRISH FACTC/FRMT ARTHRD LUM EA (16842) Procedu re 5 Laminectomy, facetectomy and foraminotom y single lumbar (21210) Procedu re 6 Posterior segmental instrumentation, 3 t o 6 segments (41500) Procedu re 7 INSJ BIOMECHANICAL DEVICE (30859) Procedu re 8 Autograft for spine surgery only; local obtained from same incision (44499) General Notes Chiquita Barrera 06/04/2024 10:40:23 AM , Shiloh Shrestha 06/08/2024 07:41:23 AM > ECW DOWN, UNABLE TO START CASE I CAN'T PRINT CLINICALS.Susanne Kayla 06/09/2024 12:09:10 PM > AUTHORIZATION REQUEST SUBMITTED OUTPATIENT WITH CLINICALS VIA [facility] DUE TO NONE OF THE CODES PROVIDED BEING ON THE MEDICARE INPATIENT LIST AND EXCHANGE PLANS FOLLOW MEDICARE GUIDELINES, TRACKING # [id number], Shiloh Skinner 06/10/2024 07:23:46 AM > JULIO CÉSAR REQUESTING ADDITIONAL CLINICAL INFORMATION PER FAX BACK FROM THEM. THEY'RE WANTING TO KNOW PATIENT'S BMI OR HEIGHT AND WEIGHT. IF PATIENT'S BMI IS GREATER THAN 40 THEN THERE NEEDS TO BE A DOCUMENTED DISCUSSION OF POTENTIAL RISKS AND BENEFITS WITH PATIENT REGARDING BMI AND SURGERY.Holly Dawn 06/12/2024 02:13:40 PM >HEIGHT AND WEIGHT IN COMPUTERSusanne Kayla 06/12/2024 02:22:00 PM > THANK YOU, UPLOADED MEDICAL SUMMARY TO [facility].Susanne Kayla 06/15/2024 09:52:27 AM > AUTHORIZATION REQUEST DENIED PER FAX BACK FROM [facility]. DENIAL RATIONALE STATES THAT THERE WAS NO IMAGING REPORT SHOWING PATIENT HAS AN UNSTABLE SPINE AT ALL LEVELS PLANNED FOR SURGERY. SCANNED INTO CHART. P2P IS AVAILABLE BY CALLING [phone] BUT THIS NEEDS COMPLETED WITHIN 5 BUSINESS DAYS.Holly Dawn 06/16/2024 02:44:11 PM >P2P SCHEDULED FOR TOMORROW 06/17 8:30 WITH ANOTHER OPTION OF 11AMSusanne Kayla 06/16/2024 02:45:13 PM > NOTED, PLEASE LET ME KNOW HOW P2P GOES.Susanne Kayla 06/17/2024 08:47:36 AM > AUTHORIZATION # [id number] APPROVED OUTPATIENT AND VALID 07/07/24-08/06/24 PER [facility]. SCANNED INTO CHART. PLEASE SWITCH TO OUTPATIENT AND SEND BACK SO I CAN FAX TO [facility]., Chiquita Barrera 06/17/2024 02:18:46 PM >CHANGED TO OUTPATIENT, SusanneMarge olivayla 06/17/2024 02:22:35 PM > THANK YOU, FAXED TO [facility]., Holly Chiquita 06/24/2024 01:25:08 PM >SURGERY DTE MOVE UP TO 06/30/24, Viki Carvalho 06/24/2024 04:20:58 PM > UNABLE TO UPDATE ONLINE. I CALLED [facility] AND SPOKE WITH ARIADNA SHE UPDATED DATE OF SERVICE TO 06/30/24 CALL REF# [id number], Viki Carvalho 06/24/2024 04:30:50 PM > AUTH WAS APPROVED THROUGH [facility] APPROVED DATES ARE FROM 06/30/2024 to 07/30/2024 AUTH# [id number] Clinica l Notes TRACKING # [id number] Referra l Priorit y Stat Medications Medication SIG (Take, Route, Frequency, Duration) Notes Start Date End Date Status tamsulosin 0.4 mg 1 cap(s) Ac tive Cyclobenzaprine Hydrochlorid e 10 mg 1 tab(s) orally 3 times a day prn muscle spasms 06/26/2024 Active lisinopril 20 mg 1 tab(s) Act cosmo atorvastatin 20 mg 1 tab(s) A ctive amLODIPine 10 mg 1 tab(s) Act cosmo allopurinol 100 mg as directed orally Active Social History Tobacco Use: Social History [...] (Standard) Question Answer Notes Tobacco use: Nonsmoker Problems Problem Type SNOMED Code ICD Code Onset Dates Problem Status W/U Status Risk Notes Problem 924220239 Arthrodesis stat us (Z98.1) Active confirmed Problem 004979180 Spinal stenosis, lumbosacral region (M48.07) Active confirmed Problem 35906336 Other intervertebral disc displacement, lumbosacral region (M51.27) Active confirmed Problem 5788265 Radiculopathy, lumbosacral region (M54.17) Active confirmed Problem 629003271 Postprocedural seroma of skin and subcutaneous tissue following other procedure (L76.34) Active confirmed Problem 965676174 Encounter for ot her orthopedic aftercare (Z47.89) Active confirmed Problem Other intervertebral disc degeneration, lumbosacral region with discogenic back pain and lower extremity pain (M51.372) Active confirmed Problem 78348868 Degeneration of intervertebral disc of lumbosacral region with discogenic back pain (M51.370) Active confirmed Vital Signs Height 6'3 in 04/24/2024 Weight 240 lbs 04/24/2024 BMI 29.99 04/24/2024 Encounters Encounter Location Date Provider Diagnosis [facility] Office [address] [place] [address] 04/24/2024 Elissa Vera Degeneration of intervertebral disc of lumbosacral region with discogenic back pain M51.370 ; Other intervertebral disc displacement, lumbosacral region M51.27 ; Radiculopathy, lumbosacral region M54.17 and Spinal stenosis, lumbosacral region M48.07 [facility] [address] [facility] [place] [address] 06/26/2024 Selvon Anne-Marie Spinal stenosis, lumbosacral region M48.07 ; Radiculopathy, lumbosacral region M54.17 and Degeneration of intervertebral disc of lumbosacral region with discogenic back pain M51.370 [facility] Outpatient [address] [place], [place] [id number] 06/30/2024 Selvon Anne-Marie Spinal stenosis, lumbosacral region M48.07 and Other intervertebral disc degeneration, lumbosacral region with discogenic back pain and lower extremity pain M51.372 [facility] Office [address] [facility] [place] [address] [place] [address] 07/10/2024 [facility] Encounter for other orthopedic aftercare Z47.89 ; Postprocedural seroma of skin and subcutaneous tissue following other procedure L76.34 and Arthrodesis status Z98.1 [facility] Office [address] [facility] [place] [address] 08/28/2024 [facility] Encounter for other orthopedic aftercare Z47.89 and Arthrodesis status Z98.1 [facility] [address] [place] [address] 07/06/2024 Meg Xie Assessments Encounter Date Diagnosis (ICD Code) Assessment Notes Treatment Notes Treatment Clinical Notes Section Notes 04/24/2024 Degeneration of intervertebral disc of lumbosacral region with discogenic back pain (ICD-10 - M51.370) 1. L4-S1 DDD/HNP/ra diculopath y/NFS 06/26/2024 Spinal stenosis, lumbosacral region (ICD-10 - M48.07) 06/26/2024 Radiculopathy, lumbosacral region (ICD-10 - M54.17) 04/24/2024 Other intervertebral disc displacement, lumbosacral region (ICD-10 - M51.27) 1. L4-S1 DDD/HNP/ra diculopath y/NFS 06/30/2024 Spinal stenosis, lumbosacral region (ICD-10 - M48.07) 06/30/2024 Other intervertebral disc degeneration, lumbosacral region with discogenic back pain and lower extremity pain (ICD-10 - M51.372) 07/10/2024 Postprocedural seroma of skin and subcutaneous tissue following other procedure (ICD-10 - L76.34) 1. 10 days s/p L4-S1 decompress ion/fusion 07/10/2024 Encounter for other orthopedic aftercare (ICD-10 - Z47.89) 1. 10 days s/p L4-S1 decompress ion/fusion 08/28/2024 Arthrodesis status (ICD-10 - Z98.1) 1. 8 weeks s/p L4-S1 decompress ion/fusion 08/28/2024 Encounter for other orthopedic aftercare (ICD-10 - Z47.89) 1. 8 weeks s/p L4-S1 decompress ion/fusion 07/10/2024 Arthrodesis status (ICD-10 - Z98.1) 1. 10 days s/p L4-S1 decompress ion/fusion 04/24/2024 Radiculopathy, lumbosacral region (ICD-10 - M54.17) 1. L4-S1 DDD/HNP/ra diculopath y/NFS 06/26/2024 Degeneration of intervertebral disc of lumbosacral region with discogenic back pain (ICD-10 - M51.370) 04/24/2024 Spinal stenosis, lumbosacral region (ICD-10 - M48.07) 1. L4-S1 DDD/HNP/ra diculopath y/NFS 04/24/2024 Other Plan established by Dr. Walters. Patient evaluated today by myself and Dr. Walters. After reviewing MRI with patient Dr. Walters is recommending an L4-S1 decompression and fusion, L4-5 TLIF. It was discussed with patient that fusion is necessary due to the fact that total facetecetomy's would need to be performed In order to free up the foraminal stenosis. This would lead to instability requiring a fusion. Surgical risks and benefits were discussed. Risks include, but are not limited to paralysis, infection, dural tear, nerve root injury, nonunion, etc. Patient would like to proceed with surgical intervention. We will see the patient back in the office prior to surgery. The patient is very much in agreement with the treatment and/or diagnostic plan set forth and all questions were answered to the patient's satisfaction. Thanks once again. If we can be of further service to your patients with disorders of the spine, cervical, thoracic, or lumbar, please do not hesitate to contact Dr. Walters. Best regards, 1. L4-S1 DDD/HNP/ra diculopath y/NFS 07/10/2024 Other I reassured patient today that his drainage does not appear infected and this is likely a seroma. I will prescribe him Keflex and Bactrim for prophylaxis. We did give him some ABD pads for the increased drainage. I will have him follow-up in 2 weeks for a recheck. I instructed him that if he should have any new headaches, purulent drainage, fever, night sweats, or chills, or new red flag neurological symptoms that he should report to the nearest emergency department and call our office.The patient is very much in agreement with the treatment and/or diagnostic plan set forth and all questions were answered to the patient's satisfaction. Thanks once again. If we can be of further service to your patients with disorders of the spine, cervical, thoracic, or lumbar, please do not hesitate to contact Dr. Walters. Best regards, 1. 10 days s/p L4-S1 decompress ion/fusion 08/28/2024 Other Plan established by Dr. Walters. [...] Best regards, 1. 8 weeks s/p L4-S1 decompress ion/fusion Plan Of Treatment Pending Test Test Name Order Date Lumbar spine, 4v flex ext - 72284 2023 Lumbar spine 2v ap and lat - 76617 08/28 Surgery Scheduling 06/09/2024 Future Test Test Name Order Date Chest 2 views - 12004 06/09/2024 CBC 06/09/2024 PT/PTT 06/09/2024 BMP 06/09/2024 MRSA (Bilateral Nares) PCR 06/09/2024 EKG 06/09/2024 Next Appt Details Provider Name:Meg Camarena air, 12/25/2024 08:30:00 AM, [address] [facility], [address], [place], [address], Insurance Providers Payer Name Payer Address Payer Phone Subscriber Number Group Number Insured Name Patient Relationship to Insured Coverage Start Date Coverage End Date [facility] [address] [address] [place] [address] [id number] JUAN FRANCISCO CARMEN Self - patient is the insured [facility] [address] Attn Claim DAIA Strauss [phone] [id number] JUAN FRANCISCO CARMEN Self - patient is the insured 4 Medical (General) History Medical History History ICD Code High Blood Pressure Gastric Reflux Surgical History Surgery Date(Month/Year) L4-S1 laminectomy, PSF 06/2024 Hernia 11/2021 Right hip 11/2022 Left knee replacement, total 04/2023 Right knee replacement, total 06/12 Micro discectomy 1994
--- OUTSIDE RECORDS SUMMARY | 2024-12-25 07:57 | XMS_ITS | Encounter Summary ---
Author Organization [facility] Address [address] [facility] [place] [address] Care Team Providers Care Fabricator Special Items Name Role Phone Colt Frazier MD Primary Care Provider Encounter Details Date Type Department Care Team (Late st Contact Info) Description 04/22/2023 Abstract [facility] [address] [facility] [address] [place] [address] James Ponce, PA [address] [facility] [address] [place] [address] Social History Tobacco Use Types Packs/Day Years [...] on file documented as of this encounter Plan of Treatment Upcoming Encounters Date Type Department Care Team (Late st Contact Info) Description 06/10/2025 8:00 AM EST Office Visit [facility] [address] [facility] [address] [place] [address] James Ponce PA [address] [facility] [address] [place] [address] 07/25/2026 8:00 AM EST Office Visit [facility] [address] [facility] [address] [place] [address] James Ponce PA [address] [facility] [address] [place] [address] documented as of this encounter Visit Diagnoses Not on filedocumented in this encounter Care Teams Fabricator Special Items Relationship Specialty Start Date End Date Colt Frazier MD [address] [place] [address] PCP - General Family Medicine 11/30/22 documented as of this encounter
--- OUTSIDE RECORDS SUMMARY | 2024-12-25 07:58 | XMS_ITS | Clinical Summary ---
Author Organization [facility] Address [address] [place] [address] Care Team Providers Care Financial Sales Associate Name Role Phone David Gonzalez MD Primary Care Provider [phone] Allergies No known active allergies Medications amLODIPine (NORVASC) 5 MG tablet Take 1 tablet by mouth daily 03/09/2024 Active esomeprazole (NEXIUM) 40 MG delayed release capsule Take 1 capsule by mouth every morning (before breakfast) Active lisinopril (PRINIVIL;ZESTR IL) 20 MG tablet Take 1 tablet by mouth daily Active allopurinol (ZYLOPRIM) 100 MG tablet Take 1 tablet by mouth daily Active ofloxacin (OCUFLOX) 0.3 % solution Place 1 drop into the right eye in the morning, at noon, and at bedtime 06/22/2024 Active ketorolac (ACULAR) 0.5 % ophthalmic solution Place 1 drop into the right eye in the morning, at noon, and at bedtime 06/22/2024 Active pravastatin (PRAVACHOL) 40 MG tablet Take 1 tablet by mouth daily 06/04/2024 Active prednisoLONE acetate (PRED FORTE) 1 % ophthalmic suspension Place 1 drop into the right eye 3 times daily 06/22/2024 Active Active Problems Problem Noted Date Diagnosed Date Lumbar stenosis with neurogenic claudication 04/2024 Social History Tobacco Use Types Packs/Day Years Used Date Smoking Tobacco: Never Smokeless Tobacco: Never Tobacco Cessation:Counseling Given: Not Answered Alcohol Use Standard Drinks/Week Comments Yes 4 (1 standard drink = 0.6 oz pur e alcohol) socially Interpersonal Safety Domain Source: IP Abuse Scr eening Answer Date Recorded Physical abuse Denies 06/30/2024 Verbal abuse Denies 06/30/2024 Emotional abuse Denies 06/30/2024 Financial abuse Denies 06/30/2024 Sexual abuse Denies 06/30/2024 Sex and Gender Information Value Date Recorded Sex Assigned at Not on file Legal Sex Male 9:06 AM EST Gender Identity Not on file Sexual Orientation Not on file Last Filed Vital Signs Vital Sign Reading Time Taken Comments Blood Pressure 124/74 07/02/2024 11:55 AM EST Pulse 69 07/02/2024 11:55 AM EST Temperature 36.9 C (98.4 F) 07/02/2024 11:55 AM EST Respiratory Rate 16 07/02/2024 11:55 AM EST Oxygen Saturation 97% 07/02/2024 11:55 AM EST Inhaled Oxygen Concentration - - Weight 112 kg (247 lb) 06/30/2024 11:43 AM EST Height 190.5 cm (6' 3 ) 06/30/2024 11:43 AM EST Body Mass Index 30.87 06/30/2024 11:43 AM EST Plan of Treatment Health Maintenance Due Date Last Done Comments Lipids 1973 Depression Screen 1975 HIV screen 1978 Hepatitis C screen 1981 Diabetes screen 1998 Colonoscopy 2008 Colorectal Cancer Screen 2008 FIT/FOBT: Average risk 2008 Fecal-DNA (Cologuard): [place] ge risk 2008 Sigmoidoscopy/CT colonography 2008 Pneumococcal 50+ years Vacci ne (1 of 1 - PCV) 2013 Shingles vaccine (1 of 2) 2013 COVID-19 Vaccine (3 - 2023-2 5 season) 2024 10/25/2020, 10/04/2020 Flu vaccine (Season Ended) 02/19/202505/09, 06/03/2018 DTaP/Tdap/Td vaccine (2 - Td or Tdap) 05/09/2033 05/09/2023 Respiratory Syncytial Virus (RSV) or age 60 yrs+ (1 - 1-dose 75+ series) 2038 Hepatitis A vaccine Aged Out No longe r eligible based on patient's age to complete this topic Hepatitis B vaccine Aged Out No longe r eligible based on patient's age to complete this topic Hib vaccine Aged Out No longer eligi ble based on patient's age to complete this topic Meningococcal (ACWY) vaccine Aged Out No longer eligible based on patient's age to complete this topic Meningococcal B vaccine Aged Out No l onger eligible based on patient's age to complete this topic Polio vaccine Aged Out No longer elig ible based on patient's age to complete this topic Medical Devices Implanted Type Area Paint Spray Inspector Device Identifier Shelf Expiration Date Model / Serial / Lot System Seal 5ml Spine Dura Hydrgel Polyeth Glycol - [id number] Implanted:Qt y: 1 on 06/30/2024 by Cece Walters MD at [facility] N/A: Spine Lumbar [employer] SU[employer]WD [id number] 07/21/2025 [id number] / / [id number] Set Screw 5.5-6.0 - [id number] Implanted:Qt y: 6 on 06/30/2024 by Cece Walters MD at [facility] N/A: Spine Lumbar [employer] [id number] / / Screw Poly Solid 7.5x45 - [id number] Implanted:Qt y: 2 on 06/30/2024 by Cece Walters MD at [facility] N/A: Spine Lumbar [employer] [id number] / / Screw Poly Solid 7.5x50 - [id number] Implanted:Qt y: 4 on 06/30/2024 by Cece Walters MD at [facility] N/A: Spine Lumbar [employer] [id number] / / Gene Ti Prebent 5.5x60 - [id number] Implanted:Qt y: 1 on 06/30/2024 by Cece Walters MD at [facility] N/A: Spine Lumbar [employer] [id number] / / Gene Ti Prebent 5.5x65 - [id number] Implanted:Qt y: 1 on 06/30/2024 by Cece Walters MD at [facility] N/A: Spine Lumbar [employer] [id number] / / Insurance [employer] Advance Directives * Full Code (Latest Code Status on File) Date Activated Date Inactivated Comments 06/30/2024 11:29 AM 07/02/2024 7:07 PM Healthcare Agents on File Name Relationship Healthcare Agent Relationshi p Communication Jimmy Phillips Spouse Primary Decision Maker Care Teams Financial Sales Associate Relationship Specialty Start Date End Date David Gonzalez MD [address] [place] [address] PCP - General Family Medicine 06/26/24
--- OUTSIDE RECORDS SUMMARY | 2024-12-25 07:58 | XMS_ITS | Encounter Summary ---
Author Organization [facility] Address [address] [place] [address] Care Team Providers Care Padder Cushion Name Role Phone Colt Frazier MD Primary Care Provider [phone] Encounter Details Date Type Department Care Team (Late st Contact Info) Description 03/05/2024 Clinisync Result Encounter [facility] External Department Unsolicited Marci Ponce PA [address] [facility] [address] [place] [address] Social History Tobacco Use Types Packs/Day Years [...] 06/10/2025 8:00 AM EST Office Visit [facility] [address] [place] [address] Marci Ponce, PA [address] [facility] [address] [place] [address] 07/25/2026 8:00 AM EST Office Visit [facility] [address] [place] [address] Marci Ponce PA [address] [place] [address] documented as of this encounter Procedures Procedure Name Priority Date/Time Associated Diagnosis Comments MR LUMBAR SPINE WO CON 03/05/2024 10:52 AM EDT documented in this encounter Results * MR LUMBAR SPINE WO CON (03/05/2024 10:52 AM EDT) Anatomical Region Laterality Modality Other 03/05/2024 10:5 2 AM EDT Narrative 03/05/2024 10:54 AM EDT [address] [address] Magnetic Resonance Report Signed Patient: JUAN FRANCISCO PHILLIPS MR#: [id number] : 1965 Acct:[id number] Age/Sex: 58 / M ADM Date: 03/05/24 Loc: MRI Attending Dr: Marci WHITESIDE Ordering Physician: Marci Ponce Date of Service: 03/05/24 Procedure(s): MR lumbar spine wo con Accession Number(s): [id number] cc: AWILDA HERRERA ; Marci Ponce [address] [address] Patient Name: JUAN FRANCISCO PHILLIPS MRN: [id number] date: 1965 Sex: M Assigned Patient Location: MRI Current Patient Location: MRI Accession/Order Number: [id number] Exam Date: 03/05/2024 07:55 Report Date: 03/05/2024 [...] helpful for further evaluation. Electronically authenticated by: ELVIN GONZALEZ Date: 03/05/2024 10:52 Dictated By: Elvin Gonzalez M.D. Signed By: 03/05/24 1054 DD/ 1052 TD/TT: Schedule Supervisor: Procedure Note Radiology, Radiologist, MD - 03/05/2024 [place] [address] Magnetic Resonance Report Signed Patient: JUAN FRANCISCO PHILLIPS [facility]#: [id number] : 1965Acct:[id number] Age/Sex: 58 / MADM Date: 03/05/24 Loc: MRI Attending Dr: Marci WHITESIDE Ordering Physician: Marci Ponce Date of Service: 03/05/24 Procedure(s): MR lumbar spine wo con Accession Number(s): [id number] cc: AWILDA HERRERA ; Marci Ponce [address] [address] Patient Name: JUAN FRANCISCO PHILLIPS MRN: [id number] date: 1965 Sex: M Assigned Patient Location: MRI Current Patient Location: MRI Accession/Order Number: [id number] Exam Date: 03/05/2024 07:55 Report Date: 03/05/2024 [...] of normal physiologic lumbar lordosis. The vertebral heightis preserved. Possible nonobstructing nephrolithiasis in the superior pole of the right kidney. It measures approximately 4 mm. The conus medullaris is at the level of L1. No signal abnormality withinthe visualized spinal cord is noted. Level of T12-L1 is unremarkable. No neural foraminal narrowing or canal stenoses at the level of L1-L2 and L2-L3 is noted. At the level of L3-4, there are disc bulge with mild bilateralneuroforaminal narrowing and mild canal stenosis. At the level of L4-5, there are disc bulge with superimposed central protrusion and right lateral and neuroforaminal annular fissure with mild to moderate bilateral neuroforaminal narrowing and severe canal stenosis. There isfocal epidural lipomatosis and ligamentum flavum thickening and facet joint arthrosis at this level. At the level of L5-S1, there are disc osteophyte complex with superimposed central protrusion with mild bilateral neuroforaminal narrowing and nocanal stenosis. Right S1 nerve root is in close contact with the disc osteophyte complexin the lateral recess. The paraspinal muscles are unremarkable. MR/MR lumbar spine wo con IMPRESSION: Moderate degenerative changes of lumbar spine in particular at L4-L5 and L5-S1. Possible nonobstructing nephrolithiasis in the superior pole of the right kidney. An ultrasound may be helpful for further evaluation. Electronically authenticated by: ELVIN GONZALEZ Date: 03/05/2024 10:52 Dictated By: Elvin Gonzalez M.D. Signed By:03/05/24 1054 DD/ 1052 TD/TT: Schedule Supervisor: us Marci [facility]IDE [facility] Final Resul t documented in this encounter Visit Diagnoses Not on filedocumented in this encounter Care Teams Padder Cushion Relationship Specialty Start Date End Date Colt Frazier MD [address] [place] [address] PCP - General Family Medicine 11/30/22 documented as of this encounter
[2024-12-25 08:21] LABS: Basophils Percent Auto 0.4 % (0.2-2.0); Eosinophils Absolute Auto 0.2 10^3/uL (0.0-0.7); Eosinophils Percent Auto 3.4 % (0.9-7.0); Hematocrit 45.3 % (42.0-54.0); Immature Granulocytes Abs Auto 0.01 10^3/uL (0.00-0.03); Immature Granulocytes Pct Auto 0.2 % (0.0-0.5); Lymphocytes Percent Auto 37.7 % (20.5-60.0); Mean Corpuscular HGB Conc 33.1 g/dL (29.9-35.2); Mean Corpuscular Hemoglobin 28.4 pg (25.9-34.0); Mean Corpuscular Volume 85.8 fL (80.0-94.0); Mean Platelet Volume 9.7 fL (9.5-13.5); Monocytes Absolute Auto 0.5 10^3/uL (0.3-0.8); Neutrophils Absolute Auto 2.6 10^3/uL (1.4-6.5); Neutrophils Percent Auto 49.3 % (43.0-75.0); Platelet Count 253 10^3/uL (150-450); Red Blood Count 5.28 10^6/uL (4.70-6.10); Red Cell Distribution Width 13.1 % (11.0-15.0); White Blood Count 5.3 10^3/uL (4.0-11.0)
[2024-12-25 09:36] LABS: Alanine Aminotransferase 55 U/L (16-63); Albumin Globulin Ratio 0.9; Albumin Level 3.5 g/dL (3.4-5.0); Alkaline Phosphatase 81 U/L (46-116); Anion Gap 11.8; Aspartate Amino Transferase 30 U/L (15-37); BUN Creatinine Ratio 18.5; Bilirubin Total 0.7 mg/dL (0.2-1.0); Calcium 9.1 mg/dL (8.5-10.1); Carbon Dioxide 28.7 mmol/L (21.0-32.0); Chloride 104 mmol/L (98-107); Chol HDL Ratio 3.3; Cholesterol 159 mg/dL (<=200); Estimated GFR (African America >60 (>=60 mL/min/1.73m^2); Estimated GFR (Non-African Ame >60 (>=60 mL/min/1.73m^2); Globulin 3.7 g/dL; Glucose 145 mg/dL (74-106); HDL Cholesterol 48 mg/dL (40-60); LDL Cholesterol Calculated 91.6 mg/dL; Potassium 4.5 mmol/L (3.5-5.1); Sodium 140 mmol/L (136-145); Total Protein 7.2 g/dL (6.4-8.2); Triglycerides 97 mg/dL (<=150); VLDL CHOLESTEROL 19.4 mg/dL
== END 2024-12-25 07:53 | disposition home or self-care (01) ==
LOC: LAB 07:54
PROVIDERS: PCP Family Medicine; Visit Provider Family Medicine
DX: Z00.00 Encounter for general adult medical examination without abnormal findings (principal); Z98.890 Other specified postprocedural states; N40.0 Benign prostatic hyperplasia without lower urinary tract symptoms; I10 Essential (primary) hypertension; M10.9 Gout, unspecified; E78.5 Hyperlipidemia, unspecified
CPT/HCPCS: 36415; 80053; 80061; 85025; G0103

== ENCOUNTER 2025-06-14 07:14 | Outpatient (OUT) | payer OTHER, SELFPAY ==
--- OUTSIDE RECORDS SUMMARY | 2024-05-08 05:15 | XMS_ITS ---
Author Organization [facility] Address [address] [place], [place] [id number] Care Team Providers Care Operating Room Coordinator Name Role Phone Adiel Bravo Primary Care Provider [phone] REASON FOR VISIT Wellness Social History Sex Assigned At : Social History Observation Description Sex Assigned At Male Encounters Encounter Location Date Provider Diagnosis [place] [address] [place] [address] 05/08/2024 Adiel Bravo Plan Of Treatment No Information Progress Notes * Mike PHILLIPSDOB:1965 ([age] yo M)Acc No.[id number]:05/08/2024 Medical Note Patient: Mike Fox :?Adiel Law NP-CDOB:1965???Age:58 Y ???Sex:MaleDate:05/08/2024hone:[phone]:[address] [place], [place] [id number] Subjective: * Chief Complaints: * W ellness * Electronic signature of Adiel Bravo NP on 06/14/2025 at 07:19 AM ESTSign off status: Pending * Provider: CHACHO Vasquez Date: Generated for Printing/Faxing/eTransmitting on:?06/14/2025 07:19 AM EST
--- OUTSIDE RECORDS SUMMARY | 2024-07-07 04:50 | XMS_ITS ---
Author Organization [facility] Address [address] [place] [address] Care Team Providers Care Soda Fountain Manager Name Role Phone Rodolfo Keller JR, DO Primary Care Provider Radha vailable Cece Xie Unavailable [phone] REASON FOR VISIT L4-S1 DECOMPRESSION AND FUSION , L4-5 [facility], [facility] Encounters Encounter Location Date Provider Diagnosis [facility] [address] [facility] [place] [id number] 07/07/2024 Cece Xie Plan Of Treatment No Information Progress Notes * JUAN FRANCISCO CARMEN MDOB:1965 (59 yo M)Acc No.[id number]:07/07/2024 Patient:?JUAN FRANCISCO CARMEN :?Cece Walters MD, PhDDOB:1965 ???Age:59 Y???Sex:MaleDate:07/07/2024hone:[phone]:[address] [place], [place] [address]Pcp:Rodolfo Keller JR, DO * Images: * Electronic signature of Cece Xie MD, PHD on 06/14/2025 at 07:20 AM EST Sign off status: Pending * Provider: Anne Walters MD, PhD Date: 09/07/2023 Generated for Printing/Faxing/eTransmitting on:?06/14/2025 07:20 AM EST
--- OUTSIDE RECORDS SUMMARY | 2024-07-10 05:30 | XMS_ITS ---
Author Organization The [facility] in [place] Address [address] [place] [address] Care Team Providers Care Boots And Shoes Supervisor Name Role Phone BERTA STOCKTON CNP Primary Care Provider -[phone] Berta Stockton [phone] [facility]-07[facility]02 Encounters Encounter Location Date Provider Diagnosis [facility] [address] [place] [address] 07/10/2024 Berta Stockton Plan Of Treatment No Information Progress Notes * Mike PHILLIPS MDOB:1965 (59 yo M)Acc No.[id number]:07/10/2024 UNLOCKED PROGRESS NOTE Progress Note Patient: Mike BARAJAS :?Berta Stockton ([facility])SERADOB:1965 ???Age:59 Y???Sex:MaleDate:4Phone:[phone]:[address] [place] [address]Pcp:BERTA STOCKTON CNP Subjective: * Chief Complaints: * [address] [facility] D/C-07/02. * Medical History: Objective: * Vitals: Assessment: Plan: * Treatment: * * Electronic signature of Berta Stockton NP, MEDICAL TECHNOLOGIST MICROBIOLOGY.[id number] on 06/14/2025 at 07:18 AM ESTSign off status: PendingVisit Status:?CANCPHONE (Cancelled Phone) * Provider: Porsche Stockton ([facility]), CHIEF SALES OFFICER Date: 1 09/10/2023 Generated for Printing/Faxing/eTransmitting on:?06/14/2025 07:18 AM EST
--- OUTSIDE RECORDS SUMMARY | 2024-07-27 02:30 | XMS_ITS ---
Author Organization [facility] Address [address] [place] [address] Care Team Providers Care Aircraft Stress Analyst Name Role Phone Rodolfo Keller JR, DO Primary Care Provider Radha vailable Cece Xie Unavailable [phone] Elissa Wynne Unavailable REASON FOR VISIT INCISION CHECK Encounters Encounter Location Date Provider Diagnosis [facility] Office [address] [facility] [place] [address] [place] [address] 07/27/2024 Elissa Wynne Plan Of Treatment No Information Progress Notes * JUAN FRANCISCO CARMEN MDOB:1965 (59 yo M)Acc No.[id number]:07/27/2024 Patient:?JUAN FRANCISCO CARMEN :?Elissa Vera PADOB:1965???Age:59 Y???Sex:MaleDate:07/27/2024Phone:[phone]:[address] [place] [address]Pcp:Rodolfo Keller JR, DO Subjective: * Chief Complaints: * 1 . INCISION CHECK. * Medical History: Objective: * Vitals: Assessment: Plan: * Treatment: Forms: * Images: * Electronic signature of Elissa Wynne PA-C on 06/14/2025 at 07:19 AM ESTSign off status: Pending * Provider: STEVO Vale Date: 0 07/27/2024 Generated for Printing/Faxing/eTransmitting on:?06/14/2025 07:19 AM EST
--- OUTSIDE RECORDS SUMMARY | 2024-10-09 04:30 | XMS_ITS ---
Author Organization [facility] Address [address] [place] [address] Care Team Providers Care Charging Operator Name Role Phone Rodolfo Keller JR, DO Primary Care Provider Radha vailable Cece Xie [phone] REASON FOR VISIT LUMBAR RECHECK Medications Medication SIG (Take, Route, Frequency, Duration) Notes Start Date End Date Status Cyclobenzaprine Hydrochloride 10 mg 1 ta b(s) orally 3 times a day prn muscle spasms 06/26/2024ctiveallopurinol 100 mgas directed orallyActivelisinopril 20 mg1 tab(s)Activeatorvastatin 20 mg1 tab(s)Activetamsulosin 0.4 mg1 cap(s)Active amLODIPine 10 mg1 tab(s)Active Encounters Encounter Location Date Provider Diagnosis [facility] Office [address] [place] [address] [place] [address] 10/09/2024 Cece Xie Plan Of Treatment Pending Test Test Name Order Date Lumbar spine 2v ap and lat - [id number] 10/09 Progress Notes * JUAN FRANCISCO CARMEN MDOB:1965 (59 yo M)Acc No.[id number]:10/09/2024 Patient:?JUAN FRANCISCO CARMEN :?Cece Walters MD, PhDDOB:1965 ???Age:59 Y???Sex:MaleDate:10/09/2024Phone:[phone]:[address] [place] [address], [id number]:Rodolfo Keller JR, DO Subjective: * Chief Complaints: * 1 . LUMBAR RECHECK. * Medical History: * Medications: T aking tamsulosin 0.4 mg capsule 1 cap(s) , Taking lisinopril 20 mg tablet 1 tab(s) , Taking atorvastatin 20 mg tablet 1 tab(s) , Taking amLODIPine 10 mg tablet 1 tab(s) , Taking allopurinol 100 mg tablet as directed orally , Taking Cyclobenzaprine Hydrochloride 10 mg tablet 1 tab(s) orally 3 times a day prn muscle spasms Objective: * Vitals: Assessment: Plan: * Treatment: ?Imaging: Lumbar spine 2v ap and lat - [id number] Forms: * Images: * Electronic signature of Cece Xie MD, PHD on 06/14/2025 at 07:19 AM EST Sign off status: Pending * Provider: Anne Walters MD, PhD Date: 0 10/09/2024 Generated for Printing/Faxing/eTransmitting on:?06/14/2025 07:19 AM EST
--- OUTSIDE RECORDS SUMMARY | 2025-06-07 08:00 | XMS_ITS | Encounter Summary ---
Author Organization [facility] Address [address] [place] [address] Care Team Providers Care Packaging Operator Name Role Phone Lona Germain MD Primary Care Provider [phone] Encounter Details DateTypeDepartmentCare Team (Latest Contact Info)Pqkmwkmlyhk82/17/2025 8:00 AM ESTAncillary Procedure [facility] [address] [facility] [address] [place] [address] Social History Tobacco UseTypesPacks/DayYears UsedDateSmoking Tobacco: NeverSmokeless Tobacco: NeverAlcohol UseStandard Drinks/WeekCommentsYes0 (1 standard drink = 0.6 oz pure alcohol)caffeine intake:2-3 cups/daySex and Gender InformationValueDate Recorded Sex Assigned at BirthNot on fileLegal WquKowx8710/03/2022 6:57 PM EDTGender EhjtslysQtvs07/15/2023 6:57 PM EDTSexual OrientationNot on filedocumented as of this encounter Plan of Treatment DateTypeDepartmentCare Team (Latest Contact Info)Pembcpfsdjo64/04/2026 8:00 AM ESTClinical Support [facility] [address] [place] [phone] Brooke Gonzalez, [facility] [address] [place] [address] 09/01/2025 8:00 AM ESTOffice Visit [facility] [address] [place] [address] Naye Samayoa MD [address] [facility] [address] [place] [address] 06/06/2026 8:00 AM ESTOffice Visit [facility] [address] [facility] [address] [place] [phone] James Ponce, PA [address] [facility] [address] 07/25/2026 8:00 AM ESTOffice Visit [facility] [address] [facility] [address] [place] [address] James Ponce, PA [address] [facility] [address] documented as of this encounter Procedures Procedure NamePriorityDate/TimeAssociated DiagnosisCommentsXR KNEE 1-2 VIEWS IWWJEbpmlsi96/17/2025 7:57 AM EST History of left knee [...] Germain MD [address] [place] [address] PCP - GeneralFamily Wtywkifx82/17/25documented as of this encounter
--- OUTSIDE RECORDS SUMMARY | 2025-06-07 08:00 | XMS_ITS | Encounter Summary ---
Author Organization [facility] Address [address] [place] [address] Care Team Providers Care Mold Stamper Name Role Phone Lona Germain MD Primary Care Provider [phone] Reason for Visit * ReasonCommentsFollow-up Encounter Details DateTypeDepartmentCare Team (Latest Contact Info)Sppjnmpeauh19/17/2025 8:00 AM ESTOffice Visit [facility] [address] [place] [address] James Ponce PA [address] [place] [address] Acute pain of left knee (Primary Dx); History of left knee replacement Social History Tobacco UseTypesPacks/DayYears UsedDateSmoking Tobacco: NeverSmokeless Tobacco: NeverAlcohol UseStandard Drinks/WeekCommentsYes0 (1 standard drink = 0.6 oz pure alcohol)caffeine intake:2-3 cups/daySex and Gender InformationValueDate Recorded Sex Assigned at BirthNot on fileLegal PblAstl1310/03/2022 6:57 PM EDTGender HuxfutknIrwz20/15/2023 6:57 PM EDTSexual OrientationNot on filedocumented as of this encounter Progress Notes * STEVO Al - 06/07/2025 8:00 AM EST Images from the original note were not included. Orthopedic Office note: NAME: Mike Phillips : 1965 (EST PT) - YEARLY RECHECK OF (L) TKA 05/16/23 (~ 1 YR, 1 MONTH) XRAY (L) KNEE TODAY, 06/07/25 IN [facility] XRAY 07/27/24 IN [facility] NO BONE SCAN LABS, 02/04/24 [...] urgent evaluation. Visit was preformed using ANIKA Co-airflight attendants supervisor speech recognition. * Leti Beckwith MA - [...] Father Andrew Hypertension Father Andrew Parkinsonism Father Andrew Other (hypoglycema) Father Andrew Other (gout) Father Andrew Diabetes Brother Kumar Diabetes Maternal Grandmother Erva Colon cancer Maternal Grandfather Colon cancer Paternal Grandfather [5] Social History Tobacco Use Smoking status: Never Smokeless tobacco: Never Vaping Use Vaping status: Unknown Substance Use Topics Alcohol use: Yes Comment: caffeine intake:2-3 cups/day Drug use: Never documented in this encounter Plan of Treatment DateTypeDepartmentCare Team (Latest Contact Info)Qhlrirheaem08/04/2026 8:00 AM ESTClinical Support [facility] [address] [facility] [address] [place] [phone] Brooke Gonzalez, [facility] [address] [facility] [address] [place], [place] [id number] 09/01/2025 8:00 AM ESTOffice Visit [facility] [address] [facility] [address] [place] [phone] Naye Samayoa MD [address] [facility] [address] [place] [address] 06/06/2026 8:00 AM ESTOffice Visit [facility] [address] [facility] [address] [place] [phone] James Ponce, STEVO [address] [facility] [place] [address] 07/25/2026 8:00 AM ESTOffice Visit [facility] [address] [facility] [address] [place] [address] James Ponce, [place] [address] [facility] [place] [address] documented as of this encounter Procedures Procedure NamePriorityDate/TimeAssociated DiagnosisCommentsXR KNEE 1-2 VIEWS DQFKIyfbxvu60/17/2025 7:57 AM EST History of left knee [...] Lona Germain MD [address] [place] [address] PCP - GeneralFamily Zuemzyth38/17/25documented as of this encounter
--- OUTSIDE RECORDS SUMMARY | 2025-06-10 09:08 | XMS_ITS | Continuity of Care Document ---
Author Organization [facility] Address [address] [place] [address] Phone Care Team Providers Care Resistor Tester Name Role Phone Lona Germain DO Primary Care Provider [phone] Lona Germain DO Attending Provider Care Teams Patient Care Team Team Status: Active Member Role/Relationship Status Dates Lona Germain DO Primary Care Provider Active Patient Care Team Team Status: Inactive Member Role/Relationship Status Dates Lona Germain DO Primary Care Provider Active S tart: June 10, 2025 End: June 10, 2025Jeesperanza Germain DOAttending ProviderActiveStart: June 10, 2025 End: June 10, 2025 Chief Complaint and Reason for Visit Chief Complaint Admit Date new patient June 10, 2025 1:02pm Reason for Visit Admit Date Bilateral lumbar radiculopathy June 10, 2025 1:02pm GERD (gastroesophageal reflux disease) N ov2024 1:02pm Gout June 10, 2025 1:02pm Hyperlipidemia June 10, 2025 1:02pm Hypertension June 10, 2025 1:02pm Joint pain June 10, 2025 1:02pm Myalgia June 10, 2025 1:02pm Prediabetes June 10, 2025 1:02pm Reason for Referral Type Reason(s) Provider Provider Contact Information P rovider Address Start Date Bilateral lumbar radiculopathy M54.16 - Radiculopathy, lumbar zicmjdH44.16 - Radiculopathy, lumbar region [facility] [address] [address]bdvcto[address] Allergies, Adverse Reactions, Alerts Allergen Type Severity Reaction Last Updated Verified Status No Known Allergies Allergy Unknown June 10, 2025 1:07pmYesActive Social History Smoking Status Status Start Date End Date Date of Observa tion Never smoked tobacco (finding) June 10, 2025 1:11pm Observation Status Observation Response Date of Response Legal Sex Male (finding) Sex Assigned At BirthMaleDecember 1964 Family History Relationship Condition Age at Onset Recorded Date/T radha mother Diabetes mellitus Unknown HypertensionUnknownfatherDiabetes mellitusUnknownHypertensionUnknownParkinson's diseaseUnknownbrotherDiabetes mellitusUnknownmaternal grandmotherDiabetes mellitusUnknownmaternal grandfatherMalignant neoplasmUnknownpaternal grandfather Malignant neoplasmUnknown Problems Active Problems Problem Diagnosis/Recorded Date Onset Date Stat us Myalgia June 10, 2025 1:59pm Unknown A ctive Joint pain June 10, 2025 1:58pm Unknown A ctive Gout June 04, 2025 8:04am Unknown A ctive Hyperlipidemia June 04, 2025 8:05am Unknown Active Bilateral lumbar radiculopathy June 10, 2025 1:5 8pm Unknown Active Prediabetes June 10, 2025 1:58pm Unknown A ctive GERD (gastroesophageal reflux disease) June 04, 2025 8:05am Unknown Active Hypertension June 04, 2025 8:05am Unknown A ctive Medications Medication Status Dose Units Route Directions Qty Days Refills S tart Date Stop Date End Date Reason(s) Instructions Adherence Pravastatin 40 mg tablet Active 40 MG PO Daily June 04, 2025 12:00amComplies with drug therapyLisinopril 20 mg tablet Ykuugk29EILRGtvrgQfrcguce 14th, 2025 12:00amComplies with drug therapyAmlodipine (Norvasc) 5 mg ssbvraFzvbob5YOSETeipvGlnxgbes 14th, 2025 12:00amComplies with drug therapyAllopurinol 100 mg tfiqkqYgykal811RSZATwkesBhcptrof 14th, 2025 12:00amComplies with drug therapyTamsulosin (Flomax) 0.4 mg capsuleActive0.4MGPO DailyJune 04, 2025 12:00amComplies with drug therapyEsomeprazole Magnesium (Nexium) 40 mg capsule,delayed release(DR/EC)Ordgyt34ZABVSxudyShvwgitr 14th, 2025 12:00amComplies with drug therapy Vital Signs Vital Reading Result Reference Range Collection Date/Time Height 75 [in_i] June 10, 2025 1:33qiWopkwe855.94 kgJune 10, 2025 1:04pmHeart Rate82 /izh04-246QcbwfbsxJune 10, 2025 1:04pmRespiratory rate16 /oih51-40IihgshvfJune 10, 2025 1:04pmOxygen saturation by Pulse bhtwpwre38 %95-100June 10, 2025 1:04pmBP Hkckmlna521 mm[Hg]100-140June 10, 2025 1:04pmBP Mkauqigzd87 mm[Hg]60-100June 10, 2025 1:04pmBMI (Body Mass Index)31.1 kg/z7NzjmnjoxJune 10, 2025 1:04pm Advance Directives Advance Directive Response Recorded Date/ Time Advance Directives No March 10:37am Insurance Providers Guarantor Umair Arzola Address [address] [place] [phone] Info.Home Phone: Coverage Status Update:2025 Payer Group Member ID Coverage Type Subscriber Relationship to Subscriber Effective Date Expiration Date Sandy Bernstein CAIN [id number] Sachs , M Id: [id number] [address] [place] [id number] Home Phone: Self Encounters Encounter Location(s) Arrival/Admit Date Discharge/Departure Date Discharge/Departure Disposition Provider(s) Departed Physician/ Provider Office Visit -[facility] [place] June 10, 2025 1:02pm June 10, 2025 2:07pm Discharged to home care or self care (routine discharge) Lona Germain DO Recent Diagnosis Onset Date Admit Date Bilateral lumbar radiculopathy Unknown N [id number] 1:02pm GERD (gastroesophageal reflux disease) Unknown June 10, 2025 1:02pm Gout Unknown June 10, 2 025 1:02pm Hyperlipidemia Unknown June 10, 2 025 1:02pm Hypertension Unknown June 10, 2 025 1:02pm Joint pain Unknown June 10, 2 025 1:02pm Myalgia Unknown November 20th, 2 025 1:02pm Prediabetes Unknown June 10 1:02pm Assessments Diagnosis Onset Date Resolution Status Admit Date Bilateral lumbar radiculopathy acuteJune 10, 2025 1:02pmGERD (gastroesophageal reflux disease)acute June 10, 2025 1:02pmGoutacuteNove2024 1:02pmHyperlipidemiaacute June 10, 2025 1:02pmHypertensionacuteJune 10, 2025 1:02pmJoint pain acuteJune 10, 2025 1:02pmMyalgiaacuteNove2024 1:02pmPrediabetes acuteJune 10, 2025 1:02pm Plan of Treatment Future Tests Future scheduled test information is unavailable Pending Tests Test Name Ordered Date Scheduled Date Comprehensive Metabolic Panel June 10 1:59pm Microalbumin, Urine (Random)June 10, 2025 1:59pmCT heart calcium score wo June 10, 2025 1:45pm Future Visits Future appointment information is unavailable Future Procedures Procedure Name Ordered Date Scheduled Date A1C with Estimated Average Glu June 10 1:59pm Vitamin F08IrdecqhkJune 10, 2025 1:59pmComplete Blood Count Auto DiffJune 10, 2025 1:59pmCreatine KinaseJune 10, 2025 1:59pmC-Reactive Protein June 10, 2025 1:59pmErythrocyte Sedimentation RateJune 10, 2025 1:59pmIron and TIBC ProfileJune 10, 2025 1:59pmFolateJune 10, 2025 1:59pmLipid PanelJune 10, 2025 1:59pmPSA Screen (Yearly Only)June 10, 2025 1:59pmThyroid Stimulating HormoneJune 10, 2025 1:59pmUrinalysis June 10, 2025 1:59pmUric AcidJune 10, 2025 1:59pm Future Medications Future medication information is unavailable Patient Instructions Patient instructions are unavailable Hospital Discharge Instructions Ambulatory Orders* Referral to Neurology Time Frame: 06/10/25, Location: None Selected
--- OUTSIDE RECORDS SUMMARY | 2025-06-14 07:18 | XMS_ITS | CCD ---
Author Organization [facility] Care Team Providers Care Editorial Writer Name Role Phone DO Elmo Vela Attending Provider MIGUEL ANGEL, DR SYED Admitting Unavailable MIGUEL ANGEL, DR SYED Attending Unavailable MIGUEL ANGEL, DR SYED Consulting Unavailable MIGUEL ANGEL, DR SYED Primary Care Unavailable MILKA, DR KIARA Block Admitting Unavailable WIECEK, DR KIARA Block Attending Unavailable WIECEK, DR KIARA Block Admitting Unavailable WIECEK, DR KIARA Block Attending Unavailable DANE, DR ELMO Fisher Admitting Unavailable DANE, DR ELMO Fisher Attending Unavailable DANE, DR ELMO Fisher Consulting Unavailable DANE, DR ELMO Fisher Admitting Unavailable LAFDANIEL, DR ELMO Fisher Attending Unavailable DANE, DR ELMO Fisher Consulting Unavailable Dane, Elmo Attending Unavailable Dane, Elmo Admitting Unavailable NO FAMILY, PHYSICIAN Primary Care Unavailable BERTA HERRERA Primary Care Physician Colt Michelle MD Primary Care Provider Alejandro Gimenez MD Primary Care Provider [phone] BEATRIZ BYNUM Referring Unavailable ALEJANDRO GIMENEZ Primary Care Unavailable KELLEY, SELVON F Referring Unavailable ALEJANDRO GIMENEZ Primary Care Unavailable KELLEY, SELVON F Admitting Unavailable KELLEY, SELVON F Attending Unavailable ALEJANDRO GIMENEZ Primary Care Unavailable ERIC, OLUREMI A Consulting Unavailable BEATRIZ BYNUM Referring Unavailable ALEJANDRO GIMENEZ Primary Care Unavailable COLT MICHELLE Primary Care Physician Colt Michelle MD Primary Care Provider Leelee Willson Attending Unavailable Leelee Willson Attending Unavailable Maura Payne Attending Unavailable Thelma Rosas Attending Unavailable Christian Cabrera Admitting Unavailable Christian Cabrera Attending Unavailable Leelee Willson Attending Unavailable Maura Payne Attending Unavailable Maura Payne Attending Unavailable HOUSE, COLT P Primary Care Unavailable HOUSE, DO COLT P Attending Unavailable HOUSE, DO COLT P Admitting Unavailable HOUSE, COLT P Primary Care Unavailable HOUSE, DO COLT P Attending Unavailable HOUSE, COLT P Primary Care Unavailable HOUSE, DO COLT P Attending Unavailable HOUSE, COLT P Primary Care Unavailable HOUSE, DO COLT P Attending Unavailable Timmis, Dk H Admitting Unavailable Timmis, Dk H Attending Unavailable Timmis, Dk H Referring Unavailable MD Christian Cabrera Admitting Unavailable MD Christian Cabrera Attending Unavailable Timmis, Dk H Consulting Unavailable Timmis, Dk H Consulting Unavailable TimmisMD Dk H Consulting Unavailable Timmis, Dk H Consulting Unavailable Timmis, Dk H Consulting Unavailable Timmis, Dk H Consulting Unavailable Timmis, Dk H Consulting Unavailable Timmis, Dk H Consulting Unavailable Timmis, Dk H Consulting Unavailable HOUSE, COLT P Consulting Unavailable HOUSE, COLT P Consulting Unavailable [place] VICK Consulting Unavailable House Colt GÓMEZ Primary Care Provider TIMMIS, DK H Attending Unavailable TIMMIS, DK H Attending Unavailable JR. ARIANNA, HUDSON Fisher Attending Unavaila anaya KELLER JR., HUSDON Fisher Attending Unavaila IVAN Avila Attending Unavailable DANNIE MARCUM Referring Unavailable IVAN BA Attending Unavailable JR. ARIANNA, HUDSON Fisher Attending Unavaila MARCI Galloway Attending Unavailable MARCI PONCE Referring Unavailable Colt Michelle MD Primary Care Provider Allergies Allergy ClassificationReported Allergen(s)Allergy TypeDate of OnsetReaction(s) Facility (2 sources)No Known Medication Allergies; Translations: [No Known Medication Allergies]Propensity to adverse reactions (disorder)[facility] Medications Current Medications MedicationDrug Class(es)DatesSig (Normalized)Sig (Original)acetaminophen 325 mg / HYDROcodone bitartrate 5 mg oral tablet (1 source)Opioid AgonistStart: 72-80-5513Qosqh 325 mg-5 mg oral tablet 1 tab(s), Oral, q6hr, 10 tab(s), Refill(s) 0, Take 1 tablet 1 hour prior to the procedure. Then take as needed for pain.[facility] #[id number] Start Date: 01/17/24 Status: Orde redacetaminophen 325 mg / oxyCODONE hydrochloride 5 mg oral tablet (1 source)Opioid AgonistStart: 07-02-2024 End: 29-99-5534pxdTEDUNH-acetaminophen (PERCOCET) 5-325 MG per tablet Indications: Lumbar stenosis with neurogenicclaudication Take 1 tablet by mouth every 6 hours as needed for Pain for up to 7 days. Intended supply: 7 days. Take lowest dose possible to manage pain Max Daily Amount: 4 tablets 28 tablet 07/02/2024 07/09/2024 ActiveamLODIPine 5 mg oral tablet (20 sources)Dihydropyridine Calcium Channel BlockerStart: 21-12-5433yzgp 1 tablet by mouth once dailyamLODIPine (Norvasc) 5 MG tablet Take 5 mg by mouth Daily 03/09/2024 Active End: 73-09-5504zsud 1 tablet by mouth in the morningamLODIPine (Norvasc) 10 MG tablet Take 10 mg by mouth in the morning. 02/01/2025 Discontinued (Therapy completed)atorvastatin 20 mg oral tablet (20 sources)HMG-CoA Reductase Inhibitor End: 69-61-3747eigf 1 tablet by mouth in the morningatorvastatin (Lipitor) 20 MG tablet Take 20 mg by mouth in the morning. 02/02/2025 Discontinued (Therapy completed)cephalexin 500 mg oral capsule (9 sources)Cephalosporin AntibacterialStart: 04-27-2024 End: 22-90-7737kzfh 4 tablets by mouth every hourcephalexin (Keflex) 500 MG capsule TAKE 4 TABLETS BY MOUTH ONE HOUR prior to appointment 04/27/2024 07/27/2024 Discontinuedcyclobenzaprine hydrochloride 10 mg oral tablet (3 sources)Muscle RelaxantStart: 07-01-2024 End: 14-54-1421zoyy 1 tablet by mouth three times daily as needed for muscle spasmscyclobenzaprine (FLEXERIL) 10 MG tablet Take 1 tablet by mouth 3 times daily as needed for Muscle spasms 30 tablet 07/02/2024 07/12/2024 ActiveStart: 06-30-2024 End: 41-23-2253bfux 10 mg by mouth every twelve hours as needed for muscle mg, Oral, EVERY 12 HOURS PRN, Starting on Sat06/30/24 at 1753, Until Sat07/01/24 at 0646, Muscle spasms, Post-opdiazePAM 10 mg oral tablet (1 source)BenzodiazepineStart: 19-38-7562Hdluxm 10 mg Tab 10 mg = 1 tab(s), Oral, Once, PRN for anxiety, Take 1 hour prior to the procedure., # 1 tab(s), Refills(s) 0, [facility]acy: [facility][id number] Start Date: 01/17/24 Status: Ordered esomeprazole 40 mg delayed release oral capsule (20 sources)Proton Pump Inhibitor End: 68-73-9419pjoozgqrgmwe (NexIUM) [address] capsule Take 40 mg by mouth Active morphine (PF) injection 2 mg (1 source)Start: 34-63-6931humdswzt (PF) injection 2 mgondansetron (ZOFRAN-ODT) disintegrating tablet 4 mg (1 source)Start: 67-68-6023sdavswzbxqz (ZOFRAN-ODT) disintegrating tablet 4 mg oxybutynin chloride 5 mg oral tablet (1 source)Cholinergic Muscarinic AntagonistStart: 98-22-4900tnxh 1 tablet by mouth three times daily as neededoxybutynin 5 mg Tab 5 mg = 1 tab(s), Oral, TID, PRN Urinary discomfort, # 60 tab(s), Refills(s) 0, [facility]: [facility][id number], 190, cm, 02/10/24 9:23:00 EDT, Height/Length Dosing, 119, kg, 02/10/24 9:23:00 EDT, Weight Dosing Start Date: 02/10/24 Status: OrderedoxyCODONE (1 source)Opioid AgonistStart: 97-44-1803egwCSGZOX (ROXICODONE) immediate release tablet 5 mgpolyethylene glycol 3350 94278 mg powder for oral solution (1 source)Osmotic LaxativeStart: g, Oral, DAILY, First dose on Sat06/30/24 at 1815, Until Discontinued, Stir and dissolve one packet of powder (17 g) in any 4 to 8 ounces of beverage (cold, hot or room temperature) then drink, Post-opsodium phosphate, dibasic 35.5 mg/ml / sodium phosphate, monobasic 96.4 mg/ml enema (1 source)Start: 51-00-9513ubogzpsjce hydrochloride 0.4 mg oral capsule (20 sources)alpha-Adrenergic BlockerStart: 93-85-0807sqoj 1 capsule by mouth twice dailytamsulosin 0.4 mg Cap 0.4 mg = 1 cap(s), Oral, BID, # 30 cap(s), Refills(s) 11, Pharmacy: [facility] #[id number], 192, cm, 10/28/24 12:43:00 EDT, Height/Length Dosing, 113.1, kg, 10/28/24 12:43:00 EDT, Weight Dosing Start Date: 10/28/24 Status: Ordered Quantity: 30.0 Unit: cap(s) Repeat number: 12 Indications: Benign prostatic hyperplasia with lower urinary tract symptoms; Feeling of incompletebladder emptying;Start: 12-02-2023 End: 31-39-4476horrvljkwx 0.4 mg Cap 90 EA, 0 Refill(s), take 1 capsule by mouth once daily, Refills(s) 0 Start Date: 12/02/23 Status: Orderedtake 1 capsule by mouth every twenty-four hours in the morningtamsulosin (Flomax) 0.4 MG 24 hr capsule Take 0.4 mg by mouth in the morning. Active Completed/Discontinued Medications MedicationDrug Class(es)DatesSig (Normalized)Sig (Original)acetaminophen 325 mg oral tablet (1 source)Start: 64-80-5652179 mg, Oral, EVERY 6 HOURS, First dose on Sat06/30/24 at 1815, Until Discontinued, Maximum dose of acetaminophen is 4000 mg from all sources in 24 hours., Post-opacetaminophen 325 mg / butalbital 50 mg / caffeine 40 mg oral tablet (1 source)Barbiturate, Central Nervous System Stimulant, MethylxanthineStart: 07-01-2024 End: 79-72-1981qbba 1 tablet by mouth every twenty-four hours1 tablet, Oral, ONCE, 1 dose, On Sat07/01/24 at 0445, Maximum dose of acetaminophen is 4000 mg from all sources in 24 hours.Start: 07-01-2024 End: 58-87-5720xjnt 1 tablet by mouth every twenty-four hours1 tablet, Oral, ONCE, 1 dose, On Sat07/01/24 at 0445, Maximum dose of acetaminophen is 4000 mg from all sources in 24 hours.allopurinol 100 mg oral tablet (20 sources)Xanthine Oxidase InhibitorStart: 98-31-0566tzkyglztzew 100 mg Tab 135 EA, 0 Refill(s), take 1 AND 1/2 tablets by mouth once daily, Refills(s) 0 Start Date: 12/02/23 Status: Ordered Repeat number: 1Start: 66-31-8063ovboeaygcfa (Zyloprim) 100 MG tablet Take 150 mg by mouth Daily 12/20/2022 Activeamoxicillin 500 mg oral tablet (18 sources)Penicillin-class AntibacterialStart: 05-06-2023 End: 48-46-0522xbde 4 tablets by mouth once at mealtimeamoxicillin (Amoxil) 500 MG tablet Indications: Status post hip replacement, unspecified laterality4 tabs PO once 30-60 mins before procedure with food 4 tablet 3 05/06/2023 02/01/2025 Discontinued (Therapy completed)bisacodyl 5 mg delayed release oral tablet (2 sources)Stimulant LaxativeStart: 93-27-3986vwhj 5 mg by mouth once daily5 mg, Oral, DAILY, First dose on Sat06/30/24 at 1815, Until Discontinued, Do not crush or break., Post-opStart: 69-61-8124ujnd 10 mg rectal route once daily as needed for znzkykrcvson95 mg, Rectal, DAILY PRN, Starting on Sat06/30/24 at 1753, Until Discontinued, Constipation, Firstline therapy for constipation, Post-opceFAZolin (ANCEF) 2,000 mg in sterile water 20 mL IV syringe (1 source)Start: 06-30-2024 End: 42,000 mg, IntraVENous, EVERY 8 HOURS, 2 doses, First dose on Sat06/30/24 at 2300, Last dose on Sat07/01/24 at 0700, Antimicrobial Indications: Surgical Prophylaxis, Administer over 5 mins. Reconstitute 2 g vial with 20 mL Sterile Water. Withdraw entire contents., Post-opciprofloxacin 3 mg/ml ophthalmic solution (1 source)Quinolone AntimicrobialStart: 06-30-2024 End: 97-16-3711uksr 1 drop(s) into the eye(s) three times daily1 drop, Right Eye, 3 times daily, First dose on Sat06/30/24 at 2100, Until Discontinued1 ml dexamethasone phosphate 10 mg/ml prefilled syringe (1 source)CorticosteroidStart: 07-01-2024 End: 35-90-096939 mg, IntraVENous, EVERY 8 HOURS, First dose on Sat07/01/24 at 0715, For 3 dosesdocusate sodium 56.6 mg/ml enema (1 source)Start: 20-84-2299fvff 283 mg rectal route once daily as aqaoka852 mg (1 enema), Rectal, DAILY PRN, Starting on Sat07/02/24 at 1433, Until Discontinued, Constipationdocusate sodium 50 mg / sennosides, assisted 8.6 mg oral tablet (1 source)Start: 26-25-7733qiyu 1 tablet by mouth twice daily1 tablet, Oral, 2 TIMES DAILY, First dose on Sat06/30/24 at 2100, Until Discontinued, Post-op2 ml fentaNYL 0.05 mg/ml injection (1 source)Opioid AgonistStart: 06-30-2024 End: 31-85-438174 mcg, IntraVENous, EVERY 5 MIN PRN, 2 doses, Starting on Sat06/30/24 at 1633, Until Sat06/30/24at 1705, Pain Severe (7-10), For Phase I. If Phase II oral narcotics have been administered in the last 60 minutes, do not administer IV narcotics unless specifically approved by provider., PACU only1 ml HYDROmorphone hydrochloride 1 mg/ml cartridge (2 sources)Opioid AgonistStart: 06-30-2024 End: .25 mg, IntraVENous, EVERY 5 MIN PRN, 2 doses, Starting on Sat06/30/24 at 1653, Until Sat06/30/24 at 1710, Pain Moderate (4-6), If oral and IV narcotics ordered, use oral first and only use IV if oral is ineffective or cannot take oral. Do Not give oral and IV within 1 hour of each other unless s pecifically ordered., PACU onlyketorolac tromethamine 5 mg/ml ophthalmic solution (12 sources)Nonsteroidal Anti-inflammatory Drug, Cyclooxygenase InhibitorStart: 06-97-9145vybv 1 drop(s) into the eye(s) four times daily1 drop, Right Eye, 4 TIMES DAILY, First dose (after last modification) on Sat07/01/24 at 2100, Until DiscontinuedStart: 06-30-2024 End: 83-44-2130mggp 1 drop(s) into the eye(s) three times daily1 drop, Right Eye, 3 times daily, First dose on Sat06/30/24 at 2100, Until DiscontinuedStart: 88-36-6884bqpl 1 drop(s) into the eye(s) at bedtimeketorolac (ACULAR) 0.5 % ophthalmic solution Place 1 drop into the right eye in the morning, at noon, and at bedtime 06/22/2024 SuspendedStart: 05-19-2024 End: 01-68-2472engf 1 drop(s) into the eye(s) in the morningketorolac (Acular) 0.5 % ophthalmic solution Indications: Age-related nuclear cataract of both eyes Administer 1 drop into affected eye(s) in the morning and 1 drop before bedtime. 5 mL 1 05/19/2024 06/18/2024 Activelisinopril 20 mg oral tablet (20 sources)Angiotensin Converting Enzyme InhibitorStart: 83-16-3582vfagmfnnzf 20 mg Tab 90 EA, 0 Refill(s), take 1 tablet by mouth once daily, Refills(s) 0 Start Date: 12/02/23 Status: Ordered Repeat number: 1methylPREDNISolone (5 sources)CorticosteroidStart: 03-11-2024 End: 77-46-1587fdxwesQEINVSHtsgpf (Medrol Dospak) 4 MG tablets Indications: Lumbar back pain with radiculopathy affecting left lower extremity Follow schedule on package instructions 21 tablet 03/11/2024 04/15/2024iscontinued Start: 93-25-1298hhnxxgFSICGVCqhrre (Medrol Dospak) 4 MG tablets Indications: Lumbar back pain with radiculopathy affecting left lower extremity Follow schedule on package instructions 21 tablet 03/11/2024 Activeofloxacin 3 mg/ml ophthalmic solution (5 sources)Quinolone AntimicrobialStart: 35-96-2692ofen 1 drop(s) into the eye(s) at bedtimeofloxacin (OCUFLOX) 0.3 % solution Place 1 drop into the right eye in the morning, at noon, and at bedtime 06/22/2024 SuspendedStart: 05-19-2024 End: 81-50-1497puxw 1 drop(s) into the eye(s) five times dailyofloxacin (Ocuflox) 0.3 % ophthalmic solution Indications: Age-related nuclear cataract of both eyes Administer 1 drop into affected eye(s) 5 (five) times a day for 1 day Starting 1 day before surgery, continue after surgery as directed 5 mL 1 05/19/2024 05/20/2024 Active2 ml ondansetron 2 mg/ml injection (2 sources)Serotonin-3 Receptor AntagonistStart: 06-30-2024 End: mg, IntraVENous, ONCE, 1 dose, On Sat06/30/24 at 1715, PACU onlyStart: 06-30-2024 End: dose, Starting on Sat06/30/24 at 1649, Until Sat06/30/24 at 1650, Clari Muñiz: cabinet override, Clari Muñiz: cabinet override pantoprazole 40 mg delayed release oral tablet (1 source)Proton Pump InhibitorStart: 32-81-448670 mg, Oral, DAILY BEFORE BREAKFAST, First dose on Sat07/01/24 at 0930, Until Discontinued, Substituted for Esomeprazole (NEXIUM).pravastatin sodium 40 mg oral tablet (20 sources)HMG-CoA Reductase InhibitorStart: 67-71-2996ixnwotrftyh 40 mg Tab 90 EA, 0 Refill(s), take 1 tablet by mouth once daily, Refills(s) 0 Start Date: 12/02/23 Status: Ordered Repeat number: 1prednisoLONE acetate 10 mg/ml ophthalmic suspension (9 sources)CorticosteroidStart: 08-78-0918inlm 1 drop(s) into the eye(s) twice daily1 drop, Right Eye, 2 times daily, First dose (after last modification) on Sat07/01/24 at 2100, Until DiscontinuedStart: 06-30-2024 End: 13-54-9134enum 1 drop(s) into the eye(s) three times daily1 drop, Right Eye, 3 TIMES DAILY, First dose on Sat06/30/24 at 2100, Until DiscontinuedStart: 26-54-5830zpsbsodzESFS acetate (PRED FORTE) 1 % ophthalmic suspension Place 1 drop into the right eye 3 timesdaily 06/22/2024 SuspendedStart: 05-19-2024 End: 01-07-8127klnybojfYFPR acetate (Pred-Forte) 1 % ophthalmic suspension Indications: Age-related nuclear cataract of both eyes Administer 1 drop into affected eye(s) in the morning and 1 drop at noon and 1 drop in the evening and 1 drop before bedtime. Do all this for 14 days. 5 mL 1 05/19/2024 06/02/2024 ExpiredpredniSONE 50 mg oral tablet (3 sources)Start: 77-69-4623pksvkeCAIY 50 mg Tab 5 EA, 0 Refill(s), take 1 tablet by mouth once daily for 5 days, Refills(s) 0 Start Date: 12/02/23 Status: Ordered5 ml sodium chloride 9 mg/ml injection (5 sources)Start: -40 mL, IntraVENous, EVERY 12 HOURS SCHEDULED (2 times per day), First dose on Sat06/30/24 at 2100, Until Discontinued, For Line Patency: Peripheral IV = 5 mL; Midline or Central Line = 10 mL/lumen. If following IV push medication, administer flush at same rate as the IV push. Flush volume is determined by type of infusion therapy being given. For non- viscous solutions use: Peripheral IV = 5 mLMidline or Central Line = 10 mL/lumen For viscous solutions (i.e. blood components, parenteral nutrition, contrast media, or after obtaining blood sample) use: Peripheral IV = 10 mL Midline or Central Line = 20 mL/lumen, Post-opStart: 74-82-1543LekbvRPCapc, at 125 mL/hr, CONTINUOUS, Starting on Sat06/30/24 at 1815, Post-opStart: -40 mL, IntraVENous, PRN, Starting on Sat06/30/24 at [...] Midline or Central Line = 20 mL/lumen, Post-opStart: 06-30-2024 End: 97-23-8846WygydVRPdcz, at 5-250 mL/hr, PRN, if patient receiving piggyback infusions and maintenance fluids are not ordered, Starting on Sat06/30/24 at 1129, For piggyback infusion, administer at same rate aspiggyback for a total of 25 mL. Enter 25 mL into dose field and piggyback rate into rate field of order. If piggyback is infusing at a rate less than 100 mL/hr, enter 25 mL into dose field and 100 mL/hr into rate field of order., Pre-op (day of surgery) Problems Active Problems Problem ClassificationProblemDateDocumented DateEpisodic/ChronicAnxiety disorders (20 sources)Generalized anxiety disorder; Translations: [Generalized anxiety disorder]Onset: 912332-06-4281AuqgvbhTnmgzhxx (2 sources)Bilateral age-related nuclear cataracts; Translations: [Age-related nuclear cataract, bilateral]70-83-6509ReenocbJnobpieh mellitus with complications (4 sources)Neuropathy due to type 2 diabetes mellitus; Translations: [Type 2 diabetes mellitus with diabetic neuropathy, unspecified]Onset: 02-01-2025 54-71-1237PwoavsoYyzweelh mellitus without complication (12 sources)Type 2 diabetes mellitus; Translations: [Type 2 diabetes mellitus without complications]Onset: 756421-94-6484OkdgxueYvstraybf of lipid metabolism (20 sources)Hyperlipidemia; Translations: [Mixed hyperlipidemia]Onset: 824023-57-0434JnnssgxDerfbnwihb disorders (20 sources)Gastroesophageal reflux disease without esophagitis; Translations: [Gastro-esophageal reflux disease without esophagitis]Onset: 09-20-2016 64-49-5417ZwcftxiJpophvgjx hypertension (20 sources)Hypertensive disorder; Translations: [Essential hypertension]Onset: 832185-25-3342GwafabuOxxn and other crystal arthropathies (20 sources)Gout; Translations: [Primary gout]Onset: hronic Hyperplasia of prostate (20 sources)Benign prostatic hypertrophy with outflow obstruction; Translations: [Benign prostatic hyperplasia with lower urinary tract symptoms]Onset: 21-47-5125OstqyaqTlpgfsmccefpeo (20 sources)Arthritis of left knee; Translations: [Unilateral primary osteoarthritis, left knee]Onset: 290001-60-7375OwkktajJruvh connective tissue disease (20 sources)Artificial knee joint present; Translations: [Presence of unspecified artificial knee joint]Onset: 175184-35-4903LgmflvrYpxrk connective tissue disease (20 sources)History of total hip arthroplasty; Translations: [Presence of right artificial hip joint]Onset: 393821-04-0563UibcyqfOtacc connective tissue disease (20 sources)History of total knee arthroplasty; Translations: [Presence of unspecified artificial knee joint]Onset: 058551-71-6795MwkqjxgEdcfk diseases of kidney and ureters (1 source)Urinary tract obstruction; Translations: [Other obstructive and reflux uropathy]Onset: 14-15-1343NovkvwenBgmql ear and sense organ disorders (2 sources)Mixed conductive AND sensorineural hearing loss; Translations: [Mixed conductive and sensorineural hearing loss, unilateral, left ear with restricted hearing on the contralateral side]32-45-8174NqajynuMzqzx ear and sense organ disorders (2 sources)Conductive hearing loss, unilateral, left ear, with unrestricted hearing on the contralateral side;Translations: [Conductive hearing loss, unilateral]13-36-6384FemcecsVpfbg ear and sense organ disorders (2 sources)Tinnitus of vascular origin; Translations: [Pulsatile tinnitus, left ear]46-79-2612NdfetsujUpvcv ear and sense organ disorders (2 sources)Referred otalgia of left ear; Translations: [Otalgia, left ear] 90-01-4100IdwkthfrZxrzn male genital disorders (18 sources)Male erectile dysfunction, unspecified; Translations: [Erectile dysfunction]Onset: 94-11-1423MajulfbKikob nervous system disorders (20 sources)Chronic pain; Translations: [Other chronic pain]Onset: 09-20-2016 79-59-5528NkjdkriGmggt non-traumatic joint disorders (4 sources)Pain in left knee; Translations: [Pain in joint, lower leg]06-10-2024 EpisodicSpondylosis; intervertebral disc disorders; other back problems (20 sources)Lumbago-sciatica due to displacement of lumbar intervertebral disc; Translations: [Other intervertebral disc displacement, lumbosacral region]Onset: 486934-48-7503EiczhpzNxlanitfoxbg (1 source)CONTACT W/AND (SUSP) EXPOS COVID-19; Translations: [CONTACT W/AND (SUSP) EXPOS COVID-19]Onset: 25-61-3344Zvcqsxyepape (6 sources)Measurement salhdmn75-30-4254Hqquofduyqbf (2 sources)Finding of sensation of qcxvato45-04-9924Xwhtsebfpsbw (1 source)Other intervertebral disc degeneration, 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; Translations: [Other intervertebral disc degeneration, 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]Onset: 06-26-2024 Past or Other Problems Problem ClassificationProblemDateDocumented DateEpisodic/ChronicAbdominal hernia (20 sources)Umbilical hernia without obstruction or gangrene; Translations: [Irreducible umbilical hernia]Onset: 912273-28-1650XvwyblorPfxyvhxno pain (20 sources)Periumbilical pain; Translations: [Periumbilical pain]Onset: 409940-63-8969LhrgfmcgZagnouumluxiqv/social admission (4 sources)Patient encounter status; Translations: [Dietary counseling and surveillance]Onset: 482687-30-3824UsgnmtbeCwzuqpjf mellitus without complication (20 sources)Prediabetes; Translations: [Prediabetes]Onset: 094984-60-6983 EpisodicGenitourinary symptoms and ill-defined conditions (17 sources)Nocturia; Translations: [Dysuria]Onset: 11-51-2125QvydcifdDkhjf gastrointestinal disorders (4 sources)Heartburn; Translations: [Heartburn]Onset: 397651-16-4219 EpisodicOther non-traumatic joint disorders (20 sources)Pain in right knee; Translations: [Pain in joint, lower leg]Onset: 574050-54-2763IpemddyyEvxqo nutritional; endocrine; and metabolic disorders (20 sources)Body mass index 25-29 - overweight; Translations: [Overweight]Onset: 364655-69-9021OdkuoiofFntco nutritional; endocrine; and metabolic disorders (20 sources)Overweight; Translations: [Overweight]Onset: EpisodicOther screening for suspected conditions (not mental disorders or infectious disease) (19 sources)Raised prostate specific antigen; Translations: [Elevated prostate specific antigen [PSA]]Onset: 52-59-2125UkgosfshEvsocsfe codes; unclassified (20 sources)Family history of diabetes mellitus; Translations: [Family history of diabetes mellitus]Onset: 171869-16-2152XwwdheidXrcusjvxlvk; intervertebral disc disorders; other back problems (20 sources)Lumbar radiculopathy; Translations: [Radiculopathy, lumbar region] Onset: 902385-40-0718SgouzvxlKwxgwwqznrul (1 source)Other intervertebral disc degeneration, 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 EXAM: CT Orbit Sella IAC w/ Contrast DATE: 02/12/2025 3:55 PM CLINICAL HISTORY: H93.A2 Pulsatile tinnitus, left ear. Technologist Comments: pt states swishing sound in ears for couple months, hx of TMJ issues, denies surgery hx or ca. COMPARISON: None available. TECHNIQUE: Spiral imaging of the [place] was performed. after the infusion of IV contrast. All CT scans at this facility use dose modulation, iterative reconstruction, and/or weight based dosing when appropriate to reduce radiation dose to as low as reasonably achievable.. FINDINGS: Both temporomandibular joints, IACs, semicircular canals, cochlea, mastoid air cells, middle ear cavities, auditory ossicles, tympanic membranes, visualized paranasal sinuses, orbits, and skull base are unremarkable. GFR (mL/min/1/73m2) 85 Contrast: Isovue 300 Contrast amount in ml's: 100.00 Ordering Provider: Dk Diaz FINAL REPORT Dictated: 02/15/2025 12:10 pm Christian Cabrera MD Signed (Electronic Signature): 02/15/2025 12:10 pm Signed by: Christian Cabrera MD Transcribed by: JOANNA Technologist: RICOTMCRadiology, Radiologist, - 02/15/2025 Exam Date/Time: 02/12/2025 16:15 EDT Reason for Exam: H93.A2 Pulsatile tinnitus, left ear Report IMPRESSION: NEGATIVE IAC/SKULL BASE CT. EXAM: CT Orbit Sella IAC w/ Contrast DATE: 02/12/2025 3:55 PM CLINICAL HISTORY: H93.A2 Pulsatile tinnitus, left ear. Technologist Comments: pt states swishing sound in ears for couple months, hx of TMJ issues, denies surgery hx or ca. COMPARISON: None available. TECHNIQUE: Spiral imaging of the [place] was performed. after the infusion of IV contrast. All CT scans at this facility use dose modulation, iterative reconstruction, and/or weight based dosing when appropriate to reduce radiation dose to as low as reasonably achievable.. FINDINGS: Both temporomandibular joints, IACs, semicircular canals, cochlea, mastoid air cells, middle ear cavities, auditory ossicles, tympanic membranes, visualized paranasal sinuses, orbits, and skull base are unremarkable. GFR (mL/min/1/73m2) 85 Contrast: Isovue 300 Contrast amount in ml's: 100.00 Ordering Provider: Dk Diaz FINAL REPORT Dictated: 02/15/2025 12:10 pm Christian Cabrera MD Signed (Electronic Signature): 02/15/2025 12:10 pm Signed by: Christian Cabrera MD Transcribed by: JOANNA Technologist: MARIJA ArredondoCT ORBIT SELLA IAC W/ CONTRASTOrdered By: Radiologist Radiology on 11-55-8508KBME ShowNearby Work Phone: ct Orbit Sella IAC w/ Contraston [id number] Orbit Sella IAC w/ ContrastExam Date/Time: 02/12/2025 16:15 EDT Reason for Exam: H93.A2 Pulsatile tinnitus, left ear Report IMPRESSION: NEGATIVE IAC/SKULL BASE CT. EXAM: CT Orbit Sella IAC w/ Contrast DATE: 02/12/2025 3:55 PM CLINICAL HISTORY: H93.A2 Pulsatile tinnitus, left ear. Technologist Comments: pt states swishing sound in ears for couple months, hx of TMJ issues, denies surgery hx or ca. COMPARISON: None available. TECHNIQUE: Spiral imaging of the [place] was performed. after the infusion of IV contrast. All CT scans at this facility use dose modulation, iterative reconstruction, and/or weight based dosing when appropriate to reduce radiation dose to as low as reasonably achievable.. FINDINGS: Both temporomandibular joints, IACs, semicircular canals, cochlea, mastoid air cells, middle ear cavities, auditory ossicles, tympanic membranes, visualized paranasal sinuses, orbits, and skull base are unremarkable. GFR (mL/min/1/73m2) 85 Contrast: Isovue 300 Contrast amount in ml's: 100.00 Ordering Provider: Dk Diaz FINAL REPORT Dictated: 02/15/2025 12:10 pm Christian Cabrera MD Signed (Electronic Signature): 02/15/2025 12:10 pm Signed by: Christian Cabrera MD Transcribed by: JOANNA Technologist: Bruno [facility] - Other Lab Resultson [id number] - Other Lab Results [id number]#1.00OTGTIFFSt. Elizabeth HospitalCT ORBIT SELLA IAC W/ CONTRASTon 45-74-3925Jxzmcerha Study observation (narrative) [facility]OMS HealthcareCreatinineon 24-67-0327Lsqfsauvdm [Mass/Vol]1.0 mg/dLNormal 0.5-1.3Fisher [facility] CenterComment on above:Performed By: #### [id number] #### [facility] [address] [place], [place] [address]rUJItq 05-24-5487uFCA53 mL/min/1.73 v1Gtsmbs>=59Fisher [facility] CenterComment on above:Performed By: #### [id number] #### [facility] [address] [place] [place], [place] [address]Ukffhfp Office/Clinic Noteon 04-87-1338Jdjctoz Office/Clinic NoteUrology Office/Clinic Note Chief Complaint 2 mth w/ PVR HPI Staff 59 yr old male here for 2 mth f/u w/PVR Previous Dx: BPH with urinary obstruction, feeling of incomplete bladder emptying, increased PSA velocity, ED *tamsulosin 0.4mg pt states no changes from increase of flomax History of Present Illness I have reviewed and verified the staff HPI to be accurate for this encounter. Review of Systems PHQ Score Initial Depression Screen Score: 0 SCORE no fever, chills, malaise, myalgia. no abdominal pain, nausea, vomiting. Physical Exam Vitals & Measurements T: 37 ???C(Oral) HR: 66(Peripheral) RR: 16 BP: 128/80 HT: 76 in HT: 192 cm WT: 244.492 lb WT: 110.9 kg BMI: 30.08 General: Well developed, well nourished, in no acute distress. Assessment/Plan 59 y/o male patient here today for 2 month f/u KML pt ALKA 25 1. BPH with urinary obstruction (N40.1: Benign prostatic hyperplasia with lower urinary tract symptoms) S/p Cysto/TRUS 01/16/24 - Moderate bilobar prostatic hyperplasia w/o intravesical median lobe. Mildly elevated bladder neck. 1+ trabeculations. Prostate volume 25 mL. S/p UroLift 02/10/24 (6 implants) IPSS 23 (19), QoL 4 (3) PVR 70 ml UA today negative for blood or infection. Denies sxs of infection and hematuria. Previous visit, Tamsulosin 0.4 mg increased from daily to BID dosing given return of bothersome urinary symptoms following Urolift procedure. Reported Urolift did not help his sxs. Overall, dissatisfied with the procedure. Symptoms included nocturia x 2, feeling of incomplete bladder emptying, frequency and straining to void at times. Shares he was limiting fluids. Voids every 1-2 hours. Drinks coffee in morning, urgency worse at this time. Otherwise drinks water throughout the day. Educated onbladder irritants. Denied constipation. Denied prostatitis sxs. Today, patient reports he is taking Tamsulosin 0.4 mg BID. He does not notice much improvement in his symptoms since increasing dose to BID. Denies bothersome SE. Shares urinary symptoms include nocturia x 2-3, feeling incomplete emptying, straining at times. Limits fluids prior to bed. Denies leg s welling/[place]. No signs of infection. Offered to switch tamsulosin to Cialis 5 mg qd for BPH symptoms. Advised patient that in the case of cardiovascular event, he is not a candidate for nitroglycerin while on Cialis. He prefers to avoidCialis at this time given this risk. 5ARIs not recommended at this time given potential side effects of decreased libido, impotence and breast tenderness, which he agrees. Again, discussed further evaluation with repeat cystoscopy with potential need for repeat prostate procedures including Urolift, TURP, Rezum. He does not wish to proceed with repeat cysto at this time. He prefers to continue current regimen with no changes at this time. -Cont Tamsulosin 0.4 mg BID. Notify our office for bothersome SE. -Avoid bladder irritants -Timed voids, double voids -Cont to limit fluid intake 2 hrs prior to bed -F/U in 2 months w/ PVR, call sooner if needed Ordered: 92722 Measure Post Void residual urine and/or bladder capacity by US- non-imaging Urnls Dip Stick Auto w/o Microscopy POC 94317 2. Feeling of incomplete bladder emptying (R39.14: Feeling of incomplete bladder emptying) PVR (cc): 12/03/23 - 14 04/01/24 - 118 06/10/24 - 46 10/28/24 - 140 12/30/24 - 70 UA today negative for blood or infection Previous visit, reported he had a back surgery in June 2024. Denies worsening of urinary sxs since surgery. Admitted to feeling he does not empty well. Tamsulosin increased to BID dosing. Today reports he has noticed some improvement with feeling of incomplete emptying since increasing tamsulosin to BID, but feeling remains overall. PVR reviewed w/ pt today with some improvement. -See #1 -Timed voids, voiding maneuvers Ordered: 43496 Measure Post Void residual urine and/or bladder capacity by US- non-imaging Urnls Dip Stick Auto w/o Microscopy POC 62381 3. Increased prostate specific antigen (PSA) velocity (R97.20: Elevated prostate specific antigen [PSA]) PSA: 05/06/23 - 1.66 11/22/23 - 2.22 12/25/24 - 2.30 No known family hx of prostate cancer. Recent PSA reviewed w/ patient, remains stable. -Cont routine PSA monitoring with PCP Follow-up With When Contact Information Leelee Willson PA-C, URL In 2 months Additional Instructions: w/ PVR Patient Education Benign Prostatic Hyperplasia Problem List/Past Medical History Ongoing BPH with urinary obstruction ED (erectile dysfunction) Feeling of incomplete bladder emptying Gout Hyperlipidemia Hypertension Increased prostate specific antigen (PSA) velocity Type 2 diabetes mellitus Historical Elevated PSA Procedure/Surgical History Total knee arthroplasty (2022), Total knee arthroplasty (2021), Hernia, Hip replacement, Knee. Medications allopurinol 100 mg Tab amLODIPine 5 mg Tab lisinopril 20 mg Tab prav (more content not included)...[facility]rington HospitalComment on above:Result Comment: Electronically Signed By: Leelee Willson PA-C\.br\Date and Time Signed: 12/30/24 09:12 EDTLab - Other Lab Resultson 52-11-7326Avw - Other Lab [id number]#1.00OTGTIFFDelaware County Hospital - Other Lab Results [id number]#1.00OTGTIFFNormalMagruder HospitalLab - Other Lab Resultson 04-42-7604Onw - Other Lab Results [id number]#1.00[facility] Outside Recordson 29-86-5660Jzsvhqp Records [id number]#1.00[facility] Patient Handouton 53-41-9138Sbukgvj Handout [id number]#1.00[facility] Patient [id number]#1.00[facility] AdministrationUrology Office/Clinic Noteon 79-49-4621Ezqsvqm Office/Clinic NoteUrology Office/Clinic Note Chief Complaint urinary issues sine UroLift HPI Staff 59 yr old male pt here with urinary issues Previous Dx: BPH with urinary obstruction, feeling of incomplete bladder emptying, increased PSA velocity, ED *tamsulosin 0.4mg- he states he did start the tamsulosin about 1 week ago and does feel it is starting to help pt states he does not feels there was any changes after the UroLift 02/10/24, he has restarted the tamsulosin about 1 week ago and does feel it is starting to help pt states if he is going to stay on Tamsulosin, he will need a refill sent to [facility] in [place] IPSS - 194' History of Present Illness I have reviewed and verified the staff HPI to be accurate for this encounter. Review of Systems PHQ Score Initial Depression Screen Score: 0 SCORE no fever, chills, malaise, myalgia. no abdominal pain, nausea, vomiting. Physical Exam Vitals & Measurements T: 37 ???C(Oral) HR: 74(Peripheral) RR: 18 BP: 128/78 HT: 192 cm HT: 76 in WT: 113.1 kg WT: 249.343 lb BMI: 30.68 General: Well developed, well nourished, in no acute distress. Assessment/Plan 59-year-old male patient initially referred by Berta Herrera NP for frequency s/p Urolift 02/10/24.Now here today for bothersome urinary symptoms KML pt 1. BPH with urinary obstruction (N40.1: Benign prostatic hyperplasia with lower urinary tract symptoms) S/p Cysto/TRUS 01/16/24 - Moderate bilobar prostatic hyperplasia w/o intravesical median lobe. Mildly elevated bladder neck. 1+ trabeculations. Prostate volume 25 mL. S/p UroLift 02/10/24 (6 implants) IPSS 19 (12), QoL 3 (2) UA today negative for blood or infection Tamsulosin 0.4 mg daily discontinued at last office visit due to improvement in urgency, frequency and nocturia following Urolift procedure. Today, patient states Urolift never helped his urinary symptoms and overall, he is dissatisfied with the procedure. Reports since he discontinued tamsulosin at last visit, his urinary symptoms have gotten worse. He is most bothered by nocturia and incomplete bladder emptying. Nocturia x 2. Already limiting fluid intake 2 hours prior to bed. Also admits to urinary frequency and straining to void at times. Voids every 1-2 hours. Drinks coffee in morning, urgency worse at this time. Otherwise drinks water throughout the day. Educated on bladder irritants. He denies constipation. Denies any pain in scrotum/perineum. He reports he restarted tamsulosin 0.4 mg daily last week and urinary sxs have slightly improved. Denies significant side effects from medication, lightheadedness/dizziness. Discussed with patient that urinary sxs likely related to BPH and incomplete bladder emptying, but could have secondary pathol ogy including OAB. Unfortunately though, patient not candidate for OAB medications at this time given increased PVR and risk of urinary retention. See #2. Recommend he increase dose of tamsulosin to 0.4 mg BID at this time. If significant lightheadedness/dizziness occur, recommend he decrease dose back to once daily. Patient also educated on behavioraland dietary changes to help with his urinary sxs. Patient verbalizes understanding. All questions answered. Additionally, briefly discussed additional prostate procedures for his bothersome urinary symptoms including repeating UroLift, Rezum, TURP. Discussed there are other prostate procedures that our office does not provide including Aquablation. Patient states he would not repeat UroLift and is unsureabout other procedures at this time. I offered to schedule his follow-up with K[facility] to discuss procedures in further detail but patient declines. Offered to send referral to [facility] as well but he also declines this option for now. He would like to continue with medication management at this time. -Increase Tamsulosin 0.4 mg BID. SE d/w pt. Decrease dose back to 0.4 mg once daily if significant lightheadedness/dizziness occur. -Increase water intake, avoid bladder irritants -Timed voids, voiding maneuvers -Cont to limit fluid intake 2 hrs prior to bed -F/U in 2 months w/ PVR, call sooner if needed Ordered: tamsulosin, 0.4 mg = 1 cap(s), Oral, BID, # 30 cap(s), Refills(s) 11, Pharmacy: [facility], 192, cm, 10/28/24 12:43:00 EDT, Height/Length Dosing, 113.1, kg, 10/28/24 12:43:00 EDT, Weight Dosing 67739 Measure Post Void residual urine and/or bladder capacity by US- non-imaging Urnls Dip Stick Auto w/o Microscopy POC 31804 2. Feeling of incomplete bladder emptying (R39.14: Feeling of incomplete bladder emptying) PVR (cc): 12/03/23 - 14 04/01/24 - 118 06/10/24 - 46 10/28/24 - 140 UA today negative for blood or infection See #1 Reports he had a back surgery in June 2024. Denies worsening of urinary sxs since surgery. He continues to feel like he does not empty well. Discussed PVR today w/ patient, worsened since last visit. Denies any pain in scrotum/perineum or constipation. Will increase tamsulosin dose today. He t (more content not included)...[facility] HospitalComment on above: Result Comment: Electronically Signed By: Anamika CORTES, Leelee\.harmeet\Date and Time Signed: 10/28/24 14:18 EDTNo Panel Informationon 29-44-5392Wqasrjjqz Study observation (narrative)[facility] HealthcareXR Knee - left 1 or 2 Viewson 07-27-2024 Imaging Result: AP and Lateral of left knee: Surgical position and alignment of prosthetic components without evidence of loosening or wear to femora, tibial or patellar components, The alignment appears to be anatomic. No evidence of accelerated or asymmetric wear to tibial tray or patella button. No evidence of fracture or dislocation. Impression: Unremarkable left total knee arthroplastyCarolinaEast Medical CenterXR Knee - right 1 or 2 Viewson 59-56-8799Nncyytm Result: AP and Lateral of right knee: Surgical position and alignment of prosthetic components without evidence of loosening or wear to femora, tibial or patellar components, The alignment appears to be anatomic. No evidence of accelerated or asymmetric wear to tibial tray or patella button. No evidence of fracture or dislocation. Impression: Unremarkable right total knee arthroplastyCarolinaEast Medical CenterANION GAPon 85-69-1415Hfpmv gap [Moles/Vol]12.0 mmol/LNormal8.0-16.0 [facility] for ChildrenComment on above:Result Comment: ANION GAP = Sodium - (Chloride + CO2)Performed By: #### HH, EGFR1, BMP, ANION #### [facility] [address] [place] [address]Ipovm Gapon 37-41-2569Pjwal gap [Moles/Vol]12.0 mmol/L8.0 - 16.0 meq/LBon [facility] County Medical CenterComment on above:ANION GAP = Sodium -(Chloride + CO2) Performed at [facility] [address] [place] [address] BASIC METABOL PANELon 92-23-1652Pfzwfyu [Mass/Vol]9.2 mg/dLNormal8.5-10.5SBaylor Scott & White Medical Center – McKinneyComment on above:Performed By: #### HH, EGFR1, BMP, ANION #### [facility] [address] [place] [address] 04544Iuuwakvb [Moles/Vol]101 mmol/FEjbczb65-967ZbfeeTexas Scottish Rite Hospital for ChildrenComment on above:Performed By: #### HH, EGFR1, BMP, ANION #### [facility] [address] [place] [address]PW8 [Moles/Vol]24 mmol/CGtmaui71-90UesslTexas Scottish Rite Hospital for Children Comment on above:Performed By: #### HH, EGFR1, BMP, ANION #### [facility] [address] [place] [address]Hucjshsony [Mass/Vol]0.8 mg/dLNormal0.4-1.2SBaylor Scott & White Medical Center – McKinneyComment on above:Performed By: #### HH, EGFR1, BMP, ANION #### [facility] [address] [place] [address] 69[address]Onrufoj [Mass/Vol]189 mg/wDNcoq37-215FkcgkTexas Scottish Rite Hospital for Children Comment on above:Performed By: #### JUAN J, EGFR1, BMP, ANION #### [facility] [address] [place] [address] 34[address]Hwjgnyipy [Moles/Vol]4.7 mmol/LNormal3.5-5.2SBaylor Scott & White Medical Center – McKinneyComment on above:Performed By: #### JUAN J, EGFR1, BMP, ANION #### [facility] [address] [place] [address]Csrefa [Moles/Vol]137 mmol/MXsctsa191-846RvcywTexas Scottish Rite Hospital for ChildrenComment on above:Performed By: #### JUAN J, EGFR1, BMP, ANION #### [facility] [address] [place] [address] 450[address]Jnxz nitrogen [Mass/Vol]18 mg/dLNormal7-22[facility] for ChildrenComment on above:Performed By: #### JUAN J, EGFR1, BMP, ANION #### [facility] [address] [address]Hbuvn metabolic 2000 panelon 32-25-8253Nnmapnx [Mass/Vol]9.2 mg/dL 8.5 - 10.5 mg/dLBon Secours Elyria Memorial Hospitaly HealthComment on above:Performed at [facility] [address] [place] [address]56[address]Abdlpagl [Moles/Vol]101 mmol/L98 - 111 meq/LBon Secours Mercy HealthCO2 [Moles/Vol]24 mmol/L23 - 33 meq/LBon Secours Mercy HealthCreatinine [Mass/Vol]0.8 mg/dL0.4 - 1.2 mg/dLBon Secours Mercy HealthGlucose [Mass/Vol]189 mg/xSCcoh19 - 108 mg/dLBon Secours Mercy HealthInterpretation and review of laboratory resultsAbnormalBon Secours Mercy HealthPotassium [Moles/Vol]4.7 mmol/L3.5 - 5.2 meq/LBon [facility] Sodium [Moles/Vol]137 mmol/L135 - 145 meq/LBon [facility] HealthUrea nitrogen [Mass/Vol]18 mg/dL7 - 22 mg/dLBon [facility] Medical CenterGFR, ESTIMATEDon 81-99-0669FPS/1.73 sq M.predicted MDRD (S/P/Bld) [Vol rate/Area]mL/min/{1.73_m2} Normal>60Bon [facility] on above:Pediatric calculator link https://www.kidney.org/professionals/kdoqi/gfr_calculatorped Effective Apr 23, 2022 [...] that affects renal tubular secretion. Performed at [facility] [place] [address] Result Comment: Pediatric calculator link https://www.kidney.org/professionals/kdoqi/gfr_calculatorped Effective Apr 23, [...] or following therapy that affects renal tubular secretion.Performed By: #### HH, EGFR1, BMP, ANION #### [employer] [address] [place] [address]66[address]UWI,HCTon 66-13-6973Jjfysgfzlo (Bld) [Volume fraction]44.1 %Normal 42.0-52.0Bon [facility] on above:Performed at [facility] [employer] [address] [address]Akkeccjeo By: #### HH, EGFR1, BMP, ANION #### [employer] [address] [place] [address]Fhwdxjuxtn (Bld) [Mass/Vol]14.1 g/xMLozuwa49.0-18.0Bon [facility] CenterComascension [facility]org[facility] on above:Performed By: #### HH, EGFR1, BMP, ANION #### [facility] [address] [place] [address]Qmnagturwu and Hematocrit panel (Bld)on 68-76-3301Zbh [facility] CenterNo Panel Informationon 29-97-4859Fzb [facility] Medical CenterANION GAPon 46-93-3809Zrkab gap [Moles/Vol]12.0 mmol/LNormal8.0-16.0[facility] for ChildrenComment on above:Result Comment: ANION GAP = Sodium -(Chloride + CO2) Performed By: #### HH, BMP, ANION, EGFR1 #### [facility] [address] [address]Ckvrr Gapon 31-24-5875Woxfo gap [Moles/Vol]12.0 mmol/L8.0 - 16.0 meq/LBon [facility] Medical CenterComascension borgess le[facility] hospital on above:ANION GAP = Sodium -(Chloride + CO2) Performed at [facility] [address] [address] BASIC METABOL PANELon 59-43-7413Htlebch [Mass/Vol]8.6 mg/dLNormal8.5-10.5SBaylor Scott & White Medical Center – McKinneyComment on above:Performed By: #### HH, BMP, ANION, EGFR1 #### [facility] [address] [place] [address] 614[address]Evrmufnf [Moles/Vol]101 mmol/EYjhori21-723WvqtbTexas Scottish Rite Hospital for ChildrenComment on above:Performed By: #### HH, BMP, ANION, EGFR1 #### [facility] [address] [place] [address] 947[address]NJ5 [Moles/Vol]21 mmol/VHmy25-24GazqlTexas Scottish Rite Hospital for ChildrenComment on above:Performed By: #### HH, BMP, ANION, EGFR1 #### [facility] [address] [place] [address] 548[address]Dvelwlpsad [Mass/Vol]0.8 mg/dLNormal0.4-1.2SBaylor Scott & White Medical Center – McKinneyComment on above:Performed By: #### JUAN J, BMP, ANION, EGFR1 #### [facility] [address] [place] [address]45[address]Yllbiid [Mass/Vol]158 mg/kMKkwt20-108VfxjrTexas Scottish Rite Hospital for Children Comment on above:Performed By: #### HH, BMP, ANION, EGFR1 #### [facility] [address] [place] [address]Tbpskbnqp [Moles/Vol]4.4 mmol/LNormal3.5-5.2SBaylor Scott & White Medical Center – McKinneyComment on above:Performed By: #### JUAN J, BMP, ANION, EGFR1 #### [facility] [address] [place] [address]Hyptsk [Moles/Vol]134 mmol/KVqr564-121PxcinTexas Scottish Rite Hospital for Children Comment on above:Performed By: #### JUAN J, BMP, ANION, EGFR1 #### [facility] [address] [address]Ywos nitrogen [Mass/Vol]13 mg/dLNormal7-22[facility] Hospital for ChildrenComment on above:Performed By: #### JUAN J, BMP, ANION, EGFR1 #### [address] [address]Nivxn metabolic 2000 panelon 63-12-3930Vkhetbi [Mass/Vol]8.6 mg/dL 8.5 - 10.5 mg/dLBon Secours Elyria Memorial Hospitaly HealthComment on above:Performed at [facility] [address] [place] [address] 37620Kmdxfwyc [Moles/Vol]101 mmol/L98 - 111 meq/LBon Secours Mercy HealthCO2 [Moles/Vol]21 mmol/LLow23 - 33 meq/LBon [facility]ours Mercy HealthCreatinine [Mass/Vol]0.8 mg/dL0.4 - 1.2 mg/dLBon Secours Mercy HealthGlucose [Mass/Vol]158 mg/pHDkba38 - 108 mg/dLBon Secours Mercy HealthInterpretation and review of laboratory resultsAbnormalBon [facility]ours Mercy HealthPotassium [Moles/Vol]4.4 mmol/L3.5 - 5.2 meq/LBon [facility] Sodium [Moles/Vol]134 mmol/GQzh216 - 145 meq/LBon [facility] CenterUrea nitrogen [Mass/Vol]13 mg/dL7 - 22 mg/dLBon [facility] CenterGFR, ESTIMATEDon 27-34-4341QGA/1.73 sq M.predicted MDRD (S/P/Bld) [Vol rate/Area]mL/min/{1.73_m2} Normal>60Bon [facility] on above:Pediatric calculator link https://www.kidney.org/professionals/kdoqi/gfr_calculatorped Effective Apr 23, 2022 [...] that affects renal tubular secretion. Performed at [facility] [place] [address] Result Comment: Pediatric calculator link https://www.kidney.org/professionals/kdoqi/gfr_calculatorped Effective Apr 23, [...] or following therapy that affects renal tubular secretion.Performed By: #### HH, BMP, ANION, EGFR1 #### [employer] [address] [place] [address] 25035IIL,HCTon 15-46-6319Nslozszjvl (Bld) [Volume fraction]43.9 %Normal 42.0-52.0Bon [facility] on above:Performed at [facility] [address] [address]Wdnemerov By: #### HH, BMP, ANION, EGFR1 #### [employer] [address] [place] [address] 14733Fkthgxaopf (Bld) [Mass/Vol]14.5 g/wPFuejsp37.0-18.0Bon [facility] CenterComment on above:Performed By: #### HH, BMP, ANION, EGFR1 #### [facility] [place], [place] [address]Okhfautmmw and Hematocrit panel (Bld)on 56-74-5747Lkp [facility] CenterNo Panel Informationon 16-67-4603Ogj SecOchsner Medical Center HealthTYPE AND SCREENon 75-31-4637JXPJUtv [facility] HealthRh FactorPositiveBon SecOchsner Medical Center HealthBon SecOchsner Medical Center HealthTYPE AND SCREEN CAPTUREon 99-68-4521PPI CAPTUREBNormalSaint Cascade Medical CenterComment on above:Performed By: #### CT+S #### [employer] [address] [place] [address] 84646RQDNMWHE BERYL CAPTURENegativeNoMemorial Hermann–[facility] Comment on above:Performed By: #### CT+S #### [employer] [address] [place] [address] 07582JL CAPTURE (2 D CLONES)PositiveMethodist Mansfield Medical Center Comment on above:Performed By: #### CT+S #### [employer] [address] [place] [address] 82899TR Lumbar spine Single viewon . Single intraoperative crossfire view of the lumbar spine was performed. Posterior fusion hardware is demonstrated extending from L4-S1. The visualized surgical hardware appears grossly intact. The osseous framework appears grossly unremarkable. Please refer to operative report for further details. This report has been created using voice recognition software. It may contain minor errors which are inherent in voice recognition technology. Electronically signed by Jordan Mcneil MD - 06/30/2024 PROCEDURE: XR LUMBAR SPINE [...] technology. Electronically signed by Dr. Syed Tidwell [facility] HospitalRadiology Study observation (narrative)[facility] HospitalXR Lumbar spine Single viewOrdered By: Jordan Tidwell on 11-31-8081Avz [facility] Work Phone: MRSA BY PCRon 99-03-9287INAM SCREEN RT-PCRNegative NormalTexas Scottish Rite Hospital for ChildrenComment on above:Result Comment: No MRSA detected by Real Time - Polymerase Chain Reaction. Specimen Source: NaresPerformed By: #### MRSP #### [employer] [address] [place] [address] 47824LEEF DNA GEORGIE+probe Ql (Unsp spec)on 54-32-3070Gvk [facility] Medical CenterMRSA by PCRon 33-77-1170RBBJ DNA GEORGIE+probe Ql (Unsp spec)NegativeBon [facility] Medical CenterComment on above:No MRSA detected by Real Time - Polymerase Chain Reaction. Specimen Source: Nares Performed at [facility] [address] [place] [address] ANION GAPon 14-67-4757Ynmjr gap [Moles/Vol]12.0 mmol/LNormal8.0-16.0Texas [facility] Rite Hospital for ChildrenComment on above:Result Comment: ANION GAP = Sodium -(Chloride + CO2)Performed By: #### HH, BMP, ANION, EGFR1 #### [employer] [address] [place] [address] 03620ATGQlv 89-99-9097kQKP Coag (Bld) [Time]33.2 vNhnrhh94.0-38.0Texas [facility] Rite Hospital for ChildrenComment on above:Result Comment: Therapeutic Heparin Reference Range= 60-95 seconds (corresponds to 0.3 to 0.7 u/mL Anti-Xa factor activity)Performed By: #### JUAN J, BMP, ANION, EGFR1 #### [facility] [address] [place] [address] 868[address]Extxj Gapon 79-53-8345Mvqvk gap [Moles/Vol]12.0 mmol/L8.0 - 16.0 meq/LBon [facility] Medical CenterComment on above:ANION GAP = Sodium -(Chloride + CO2) Performed at [facility] [address] [place] [address] BASIC METABOL PANELon 20-97-1400Xqrfvmn [Mass/Vol]9.8 mg/dLNormal8.5-10.5SBaylor Scott & White Medical Center – McKinneyComment on above:Performed By: #### JUAN J, BMP, ANION, EGFR1 #### [facility] [address] [place] [address] 48432Vphezaqd [Moles/Vol]102 mmol/CDqcirl70-436MdrzcTexas Scottish Rite Hospital for ChildrenComment on above:Performed By: #### JUAN J, BMP, ANION, EGFR1 #### [facility] [address] [address]NS7 [Moles/Vol]25 mmol/JOnglrz71-78HfsmoTexas Scottish Rite Hospital for Children Comment on above:Performed By: #### JUAN J, BMP, ANION, EGFR1 #### [facility] [address] [address]Gxfemtrfib [Mass/Vol]1.0 mg/dLNormal0.4-1.2SBaylor Scott & White Medical Center – McKinneyComment on above:Performed By: #### JUAN J, BMP, ANION, EGFR1 #### [facility] [address] [place] [address] 08439Dkfojgz [Mass/Vol]109 mg/dEEbmo53-659DlzgnTexas Scottish Rite Hospital for Children Comment on above:Performed By: #### JUAN J, BMP, ANION, EGFR1 #### [facility] [address] [place] [address] 44051Hkrdkhqka [Moles/Vol]4.8 mmol/LNormal3.5-5.2SBaylor Scott & White Medical Center – McKinneyComment on above:Performed By: #### JUAN J, BMP, ANION, EGFR1 #### [facility] [address] [place] [address] 31380Ngzoxr [Moles/Vol]139 mmol/ZGodvwq325-206VugpvTexas Scottish Rite Hospital for ChildrenComment on above:Performed By: #### JUAN J, BMP, ANION, EGFR1 #### [facility] [address] [place], [place] [address]Uchl nitrogen [Mass/Vol]17 mg/dLNormal7-22SaMethodist Stone Oak HospitalComment on above:Performed By: #### JUAN J, BMP, ANION, EGFR1 #### [facility] [address] [place], [place] [address]Qiwzi metabolic 2000 panelon 17-61-3520Yewvhzh [Mass/Vol]9.8 mg/dL 8.5 - 10.5 mg/dLBon [facility] County Medical CenterComment on above:Performed at [facility] [address] [place] [address] 42[address]Onitozqd [Moles/Vol]102 mmol/L98 - 111 meq/LBon [facility] CenterCO2 [Moles/Vol]25 mmol/L23 - 33 meq/LBon [facility] CenterCreatinine [Mass/Vol]1.0 mg/dL0.4 - 1.2 mg/dLBon [facility] CenterGlucose [Mass/Vol]109 mg/kEBuhd43 - 108 mg/dLBon [facility] CenterInterpretation and review of laboratory resultsAbnormalBon [facility] CenterPotassium [Moles/Vol]4.8 mmol/L3.5 - 5.2 meq/LBon [facility] Sodium [Moles/Vol]139 mmol/L135 - 145 meq/LBon SecOhioHealth Grove City Methodist HospitalUrea nitrogen [Mass/Vol]17 mg/dL7 - 22 mg/dLBon SecOhioHealth Grove City Methodist HospitalCBCon 06-26-2024 Erythrocyte distribution width (RBC) [Entitic vol]41.0 fL35.0 - 45.0 fLBon SecConfluence Health Hospital, Central Campusy [facility] Memorial Hospital - WestPlatelets (Bld) [#/Vol]266 10*3/uLBon SecOhioHealth Grove City Methodist Hospital RBC (Bld) [#/Vol]5.66 10*6/uLBon SecConfluence Health Hospital, Central Campusy [facility] - WestWBC (Bld) [#/Vol]6.4 10*3/uLBon [facility] HealthBon SecOhioHealth Grove City Methodist HospitalCBC NO DIFFERENTIALon 75-10-5412Fdnugjkdoxf distribution width (RBC) [Ratio]12.6 %Djsbij24.5-14.5Bon [facility] CenterComascension borgess lee hospital on above:Performed By: #### HH, BMP, ANION, EGFR1 #### [facility] [address] [place] [address] 36869Rrjofvvpax (Bld) [Volume fraction]49.9 %Lenkhe17.0-52.0Bon [facility] Medical CenterComment on above:Performed By: #### HH, BMP, ANION, EGFR1 #### [facility] [address] [place] [address] 64891Epscejnsfi (Bld) [Mass/Vol]16.4 g/kPBhmbqu00.0-18.0Bon [facility] on above:Performed By: #### HH, BMP, ANION, EGFR1 #### [facility] [address] [address]HCP (RBC) [Entitic mass]29.0 zsOgrvqj70.0-33.0Bon [facility] Medical CenterComascension borgess lee hospital on above:Performed By: #### HH, BMP, ANION, EGFR1 #### [facility] [address] [place] [address] 097[address]YGOH (RBC) [Mass/Vol]32.9 g/mYEalnrp91.2-35.5Bon [facility] on above:Performed By: #### HH, BMP, ANION, EGFR1 #### [facility] [address] [place] [address] 055[address]YFF (RBC) [Entitic vol]88.2 gMUbpaqi60.0-94.0Bon [facility] on above:Performed By: #### HH, BMP, ANION, EGFR1 #### [facility] [address] [place] [address] 33412ACNEJIZL295 thou/rl8Zmngha830-098QxgslMethodist Stone Oak Hospital Comment on above:Performed By: #### HH, BMP, ANION, EGFR1 #### [facility] [address] [place] [address] 30927Pesrscfg mean volume (Bld) [Entitic vol]9.7 fLNormal9.4-12.4Bon The Point HealthComment on above:Performed at [facility] [address] [place] [address]Jpzriztrl By: #### HH, BMP, ANION, EGFR1 #### [facility] [address] [place] [address] 37398MZK2.66 mill/vz8Eibhuc1.70-6.10[facility] Hospital for ChildrenComment on above:Performed By: #### HH, BMP, ANION, EGFR1 #### [facility] [address] [place] [address] 63945OPZ-VW53.0 eKRlpogu14.0-45.0[facility] Hospital for ChildrenComment on above:Performed By: #### HH, BMP, ANION, EGFR1 #### [facility] [address] [place] [address] 22317XES0.4 thou/oc3Miioje6.8-10.8[facility] Hospital for ChildrenComment on above:Performed By: #### HH, BMP, ANION, EGFR1 #### [facility] [address] [place] [address] 19965XFF 12 LeadOrdered By: Reanna De La Rosa on 04-12-4010Drtafo Wtzv91EIE Bon [facility] Work Phone: P Csvi97ojqleiiTiqFnbox Work Phone: P-R Xsbfovtb835 msBon SecSatomi Work Phone: Q-T Srjqfsrs383 msBon SecVigilos Health Work Phone: QRS Jqlmfwlx98 msBon SecTiendeoy Health Work Phone: QTc Calculation (Rian)395 msBon SecTiendeoy Health Work Phone: R Ulyl40jngedymGtv SecVigilos Health Work Phone: T Htit43dcdajpxTtq SecVigilos Health Work Phone: Ventricular Fipr41EOPSfs SecSatomi Work Phone: Bon [facility] Work Phone: EKG 12 Leadon 73-60-7030Pindq bradycardia with 1st degree A-V block Otherwise normal ECG No previous ECGs available Confirmed by REANNA DE LA ROSA ([id number]) on 06/26/2024 3:31:35 PMWCOH Reanna Nguyen MD - 06/26/2024 Sinus bradycardia with 1st degree A-V block Otherwise normal ECG No previous ECGs available Confirmed by REANNA DE LA ROSA ([id number]) on 06/26/2024 3:31:35 PM [facility] GotVoiceEKG 12-LEADon 75-34-2943ADJ 12-LEAD57 57 214 74 406 395 56 30 42 Sinus bradycardia with 1st degree A-V block Otherwise normal ECG No previous ECGs available Confirmed by REANNA DE LA ROSA ([id number]) on 06/26/2024 3:31:35 PM [email or web address]&Date=12-20&Time=13%3a37%3a20%3a00&TestType=ECG&Site=3&OutputType=PDF&Ext=PDFNormal [facility] ChildrenGFR, ESTIMATEDon 99-61-6433EQB/1.73 sq M.predicted MDRD (S/P/Bld) [Vol rate/Area]86 mL/min/{1.73_m2}Normal>60Bon [facility] CenterComment on above:Pediatric calculator link https://www.kidney.org/professionals/kdoqi/gfr_calculatorped Effective Apr 23, 2022 [...] that affects renal tubular secretion. Performed at [facility] [address] [place] [address] Result Comment: Pediatric calculator link https://www.kidney.org/professionals/kdoqi/gfr_calculatorped Effective Apr 23, [...] or following therapy that affects renal tubular secretion.Performed By: #### HH, BMP, ANION, EGFR1 #### [employer] [address] [place] [address] 90694STN Coag (PPP) [Relative time]on 97-49-7765Abn [facility] CenterNo Panel Informationon 25-13-8977Kob [facility] CenterPROTHOMBIN TIMEon 96-48-6506IPJ Coag (Bld) [Relative time]1.05 {INR}Normal0.85-1.13[facility] for ChildrenComment on above:Result Comment: ---------INDICATION INR Reference Range DVT, PE, AF, AMI, tissue heart valve 2.0 to 3.0 Mechanical prosthetic valves 2.5 to 3.5Performed By: #### HH, BMP, ANION, EGFR1 #### [employer] [address] [place] [address] 80624Bsalkmb-CLBqk 93-24-4091ACA Coag (PPP) [Relative time]1.05 {INR} 0.85 - 1.13Bon [facility] CenterComment on above: ---------INDICATION INR Reference Range DVT, PE, AF, AMI, tissue heart valve 2.0 to 3.0 Mechanical prosthetic valves 2.5 to 3.5 Performed at [facility] [address] [address] XR Chest 2 Viewson 24-66-7408Ypqiwq chest. No acute findings. This report has been created using voice recognition software. It may contain minor errors which are inherent in voice recognition technology. Electronically signed by Sly Lopez MD - 06/26/2024 PROCEDURE: XR CHEST (2 VW) CLINICAL INFORMATION: Encounter for other preprocedural examination COMPARISON: No prior study. TECHNIQUE: PA and lateral views of the chest were obtained. IMPRESSION: Normal chest. No acute findings. This report has been created using voice recognition software. It may contain minor errors which are inherent in voice recognition technology. Electronically signed by Dr. Sly Doran [facility] TalaentiaRadiology Study observation (narrative)[facility] TalaentiaXR Chest 2 ViewsOrdered By: Sly Doran on 65-57-7064Awq [facility] Work Phone: aPTT Coag (Bld) [Time]on 88-96-6253fUCN Coag (PPP) [Time]33.2 sBon TalaentiaComment on above:Therapeutic Heparin Reference Range= 60-95 seconds (corresponds to 0.3 to 0.7 u/mL Anti-Xa factor activity) Performed at [facility] [address] [place] [address] [facility] - WestUrology Office/Clinic Noteon 16-02-6417Kldycrz Office/Clinic NoteUrology Office/Clinic Note Chief Complaint 2-3 mth f/u [...] this, does not like meds in general. Counseledpt on behavioral and dietary changes to help [...] (erectile dysfunction) (N52.9: Male erectile dysfunction, unspecified) LAKA 22 (23). Not bothersome enough to warrant tx at this time. Follow-up With When Contact Information Elmer GÓMEZ, Maura Torres, URL, URO In 1 year Additional Instructions: w/PVR Patient Education Benign Prostatic Hyperplasia Do Bennett, personally scribed for Dr. Payne on 06/10/2024 [...] knee arthroplasty (2021), Herni (more content not included)...[facility] HospitalComment on above:Result Comment: Electronically Signed By: Maura Payne MD\.br\Date and Time Signed: 06/10/24 09:51EST\.br\Electronically Co-Signed By: Do Gay\.br\Date and Time Co-Signed: 06/10/24 09:44 ESTUS Eye+Orbit - bilateralon 05-19-2024 Diagnosis: Cataract both eyes (OU) Testing Indication: Performed for preop measurements in the determination of an intraocular lens (IOL) for both eyes (OU) Test Reliability: Good quality both eyes (OU) Interpretation: Good measurements for intraocular lens (IOL) calculation purposes. Calculation made for both eyes (OU).[facility] Rad[facility] Study observation (narrative)[facility] HealthcareAmbulatory Visit Summaryon 09-19-6547Bownifefgu Visit SummaryAmbulatory Visit Summary JUAN FRANCISCO CARMEN :1965 Visit [...] Maura Payne MD Where: [facility] [place] [phone]- You Need to Schedule the Following Appointments Follow Up with Maura Payne MD M., URAdwoa, URO When: Comments: 2 mos w/ PVR Where: [address], [place] [phone] Medications What When Instructions Unchanged allopurinol (allopurinol [...] Refill(s), take 1 tablet by mouth once dailyContact prescribing physician if questions or concerns Unchanged tamsulosin (tamsulosin 0.4 mg Cap) 90 EA, 0 Refill(s), take 1 capsule by mouth once dailyContact prescribing physician if questions or concerns What How Much When Comments Stop Taking diazepam (Valium 10 mg Tab) 1 Tablets By Mouth Once as needed for for anxiety Take 1 hour prior to the procedure. Stop Taking oxybutynin (oxybutynin 5 mg Tab) 1 Tablets By Mouth 3 times a day as needed for Urinarydiscomfort Allergies No Known Medication Allergies Problems Ongoing [...] gland that is caused by the normal agingprocess. The prostate may get bigger as a man gets older. The condition is not caused by cancer. The prostate is a walnut-sized gland that is involved in the production of semen. It is located in front of the rectum and below the bladder. The bladder stores urine. The urethra carries stored urine ou t of the body. An enlarged prostate can press on the urethra. This can make it harder to pass urine. The buildup of urine in the bladder can cause infection. Back pressure and infection may progress to bladder damage and kidney (renal) failure. What are the causes? This condition is part of the normal aging process. However, not all men develop problems from thiscondition. If the prostate enlarges away from the [...] on your medical h (more content not included)...[facility] HospitalUrology Office/Clinic Noteon 46-63-2156Xlwwfcy Office/Clinic NoteUrology Office/Clinic Note Chief Complaint 1 month follow [...] Elmer GÓMEZ, Maura Torres, URL, URO [address], [facility] [place] [phone] Additional Instructions: 2 mos w/ PVR Patient [...] Father and Brother. Immunizations (more content not included)...[facility] HospitalComment on above: Result Comment: Electronically Signed By: Elmer GÓMEZ, Maura Torres\.br\Date and Time Signed: 04/01/24 10:00EDT\.br\Electronically Co-Signed By: Roberta Frederick\.br\Date and Time Co-Signed: 04/01/24 09:46 EDTMR LUMBAR SPINE WO CONon 94-95-5071[place] [address] Magnetic Resonance Report Signed Patient: JUAN FRANCISCO CARMEN MR#: [id number] : 1965 Acct:[id number] Age/Sex: 58 / M ADM Date: 03/05/24 Loc: MRI Attending Dr: Marci WHITESIDE Ordering Physician: Marci Ponce Date of Service: 03/05/24 Procedure(s): MR lumbar spine wo con Accession Number(s): [id number] cc: BERTA HERRERA ; Marci Ponce [place] [address] Patient Name: JUAN FRANCISCO CARMEN MRN: [id number] date: 1965 Sex: M Assigned Patient Location: MRI Current Patient Location: MRI Accession/Order Number: [id number] Exam Date: 03/05/2024 07:55 Report Date: 03/05/2024 [...] for further evaluation. Electronically authenticated by: ELVIN PATTON Date: 03/05/2024 10:52 Dictated By: Elvin Patton M.D. Signed By: 03/05/24 1054 DD/ 1052 TD/TT: Brake Repairer:TBHRadiology, Radiologist, - 03/05/[address] [address] Magnetic Resonance Report Signed Patient: JUAN FRANCISCO CARMEN MR#: [id number] : 1965 Acct:[id number] Age/Sex: 58 / M ADM Date: 03/05/24 Loc: MRI Attending Dr: Marci WHITESIDE Ordering Physician: Marci Ponce Date of Service: 03/05/24 Procedure(s): MR lumbar spine wo con Accession Number(s): [id number] cc: BERTA HERRERA ; Marci Ponce The [address] [address] Patient Name: JUAN FRANCISCO CARMEN MRN: [id number] date: 1965 Sex: M Assigned Patient Location: MRI Current Patient Location: MRI Accession/Order Number: [id number] Exam Date: 03/05/2024 07:55 Report Date: 03/05/2024 [...] for further evaluation. Electronically authenticated by: ELVIN PATTON Date: 03/05/2024 10:52 Dictated By: Elvin Patton M.D. Signed By: 03/05/24 1054 DD/ 1052 TD/TT: Brake Repairer: JOSE [facility] HospitalRadiology Study observation (narrative)[facility] LUMBAR SPINE WO CONOrdered By: Radiologist Radiology on 30-77-7226[facility] Work Phone: Lon 03-30-2022L Specimen: [id number] Received: 03/30/22 Status: TISHA Edmonds Num: [id number] Spec Type: Surgical Subm Dr: Elmo Vela DO Tissues: A Hernia Sac (HERNIA SAC) Procedures: HE Stain, Gross/Micro L2 Age/ Patient Sex Location Account Attending Physician Juan Francisco Carmen/Umair ADLER [id number] Elmo Vela DO SPEC NUM: [id number] RECD: 03/30/22 STATUS: TISHA EDMONDS NUM: [id number] CINDY: 03/30/22- [facility] DR: Elmo Vela DO ENTERED: 03/30/22 [facility] [address]: Marquis Villalobos [facility] SPEC TYPE: Surgical DEPT: S ORDERED: HE Stain, Gross/Micro L2 ORDERED: HE Stain, Gross/Micro L2 Pathological Diagnosis Hernia sac, resection: Clinical Information Umbilical hernia Gross Description Received in formalin labeled with the patient's name, number and hernia sac is a 5.0 x 3.8 x 1.8 cm aggregate of yellow, lobular, focally hyperemic fat with a yellow, lobular cut surface.. Customs Inspector sections are submitted in one cassette labeled A1. Microscopic Description One glass slide with H E stained material has been examined. The microscopic findings support the above pathologic diagnosis. CPT Codes 22096 Specimen: [id number] Received: 03/30/22 Status: TISHA Rothwinston Num: [id number] Spec Type: Surgical Subm Dr: Elmo Vela DO Tissues: A Hernia Sac (HERNIA SAC) Procedures: HE Stain, Gross/Micro L2 Patient: Juan Francisco Carmen [id number] (Continued) Signed (signature on file) Tamika Rodriguez MD 04/02/22 1054 [facility] HospitalCovid-19 PCR (CVDTBH)on 03-28-2022 SARS-CoV-2 (COVID-19) RNA GEORGIE+probe Ql (Unsp spec)Not detectedNormalNOT DETECTED The [facility] HospitalComment on above:Result Comment: This test is not yet approved or cleared by the [place] FDA. When there are no FDA-approved or cleared tests available, and other criteria are met, FDA can make tests available under an emergency access mechanism called an Emergency Use Authorization (EUA). The EUA for this test is supported by the [place] of Health and Human Service's (HHS's) declaration [...] of clinical signs and symptoms consistent with SARS-CoV-2.Performed By: #### CVDTBH #### [facility] [address] [place] [address] Dr. Renny PatelLEXINGTON VA MED[facility] AUTO DIFFon 36-73-9042KVOI #0.0 103/ulNormal0.0-0.1The [facility] HospitalComment on above:Performed By: #### CBC #### [facility] [address] [place] [address] Dr. Renny PatelBasophils/100 WBC (Bld)0.2 %Normal0.2-2.0The [facility] Comment on above:Performed By: #### CBC #### [facility] [address] [place] [address] Dr. Renny Hargrove #0.0 103/ulNormal0.0-0.7The [facility] HospitalComment on above: Performed By: #### CBC #### [facility] [address] [place] [address] Dr. Renny Yangosinophils/100 WBC (Bld)0.2 %Critically low0.9-7.0The [facility] HospitalComment on above:Performed By: #### CBC #### [facility] [address] [place] [address] Dr. Renny Yangrythrocyte distribution width (RBC) [Ratio]12.8 %Egedyu78.0-15.0 [facility] HospitalComment on above:Performed By: #### CBC #### [facility] [address] [place] [address] Dr. Renny PatelHematocrit (Bld) [Volume fraction]45.1 %Hekjcj60.0-54.0The [facility] HospitalComment on above:Performed By: #### CBC #### [facility] [address] [place] [address] Dr. Renny PatelHemoglobin (Bld) [Mass/Vol]14.7 g/hUNjjjkj68.0-18.0The [facility] HospitalComment on above:Performed By: #### CBC #### [facility] [address] [place] [address] Dr. Renny Ansari #0.03 10e3/ulNormal0.00-0.03The [facility] HospitalComment on above:Performed By: #### CBC #### [facility] [address] [address] [address] Renny Ansari %0.4 %Normal0.0-0.5The [facility] HospitalComment on above: Performed By: #### CBC #### [facility] [address] [place] [address] Dr. Renny Mar #1.9 103/ulNormal1.2-3.8The [facility] HospitalComment on above:Performed By: #### CBC #### [facility] [address] [place] [address] Dr. Renny Collazohocytes/100 WBC (Bld)22.8 %Acgmho04.5-60.0The [facility] on above:Performed By: #### CBC #### [facility] [address] [place] [address] Dr. Renny Del RosarioUAL DIFF REQNONormalThe [facility] HospitalComment on above: Performed By: #### CBC #### [facility] [address] [place] [address] Dr. Renny Arizmendi (RBC) [Entitic mass]29.1 ekUmigoc91.9-34.0The [facility] on above:Performed By: #### CBC #### [facility] [address] [place] [address] Dr. Renny Arizmendi (RBC) [Mass/Vol]32.6 g/oEPscrqd64.9-35.2The [facility] on above:Performed By: #### CBC #### [facility] [address] [place] [address] Dr. Renny Arizmendi (RBC) [Entitic vol]89.1 uWQeqsya99.0-94.0The [facility] on above:Performed By: #### CBC #### [facility] [address] [place] [address] Dr. Renny Bennett #0.7 103/ulNormal0.3-0.8The [facility] HospitalComment on above:Performed By: #### CBC #### [facility] [address] [address] [address] Renny Lopezocytes/100 WBC (Bld)8.4 %Normal1.7-12.0The [facility] Comment on above:Performed By: #### CBC #### [facility] [address] [place] [address] Dr. Renny MackUT #5.8 103/ulNormal1.4-6.5The [facility] HospitalComment on above:Performed By: #### CBC #### [facility] [address] [place] [address] Dr. Renny Mackutrophils/100 WBC (Bld)68.0 %Amrnpj83.0-75.0The [facility] HospitalComment on above:Performed By: #### CBC #### [facility] [address] [place] [address] Dr. Renny PatelPlatelet mean volume (Bld) [Entitic vol]9.4 fLCritically low 9.5-13.5The [facility] HospitalComment on above:Performed By: #### CBC #### [facility] [address] [place] [address] Dr. Renny PatelPLT247 103/iaZvztsr322-473Fyd [facility] HospitalComment on above: Performed By: #### CBC #### [facility] [address] [place] [address] Dr. Renny PatelRBC5.06 106/ulNormal4.70-6.10The [facility] HospitalComment on above:Performed By: #### CBC #### [facility] [address] [place] [address] Dr. Renny PatelWBC8.5 103/ulNormal4.0-11.0The [facility] HospitalComment on above: Performed By: #### CBC #### [facility] [address] [place] [address] Dr. Renny PatelPROF 14(COMP METB)on 18-68-1928Kqxxnwf [Mass/Vol]3.8 g/dLNormal 3.4-5.0The [facility] Centerment on above:Performed By: #### URIC, CMP #### [facility] [address] [address] [address] Renny PatelAlbumin/Globulin [Mass ratio]1.0 {ratio}NormalThe [facility] HospitalComment on above:Performed By: #### URIC, CMP #### [facility] [address] [address] [address] Renny Coronado [Catalytic activity/Vol]54 U/QNjqyje94-545Pyp [facility] HospitalComment on above:Performed By: #### URIC, CMP #### [facility] [address] [address] [address] Renny Sal [Catalytic activity/Vol]60 U/GZfhehv62-73Tus [facility] Centerment on above:Performed By: #### URIC, CMP #### [facility] [address] [address] [address] Renny Blankenshipon gap [Moles/Vol]8.7 mmol/LNormalThe [facility] HospitalComment on above:Performed By: #### URIC, CMP #### [facility] [address] [address] [address] Renny PatelAST [Catalytic activity/Vol]22 U/VOeymlg01-91Sdv [facility] on above:Performed By: #### URIC, CMP #### [facility] [address] [address] [address] Renny PatelBilirubin [Mass/Vol]0.8 mg/dLNormal0.2-1.0The [facility] Comment on above:Performed By: #### URIC, CMP #### [facility] [address] [address] [address] Renny PatelCalcium [Mass/Vol]9.4 mg/dLNormal8.5-10.1The [facility] Comment on above:Performed By: #### URIC, CMP #### [facility] [address] [address] [address] Renny PatelChloride [Moles/Vol]104 mmol/XLvfrys18-630Tuy [facility] Comment on above:Performed By: #### URIC, CMP #### [facility] [address] [address] [address] Renny PatelCO2 [Moles/Vol]27.6 mmol/CByaeod52.0-32.0The [facility] Comment on above:Performed By: #### URIC, CMP #### [facility] [address] [address] [address] Renny PatelCreatinine [Mass/Vol]0.99 mg/dLNormal0.70-1.30The [facility] HospitalComment on above:Performed By: #### URIC, CMP #### [facility] [address] [address] [address] Renny YangGFR-AF LAO>60Normal>=60The [facility] HospitalComment on above:Performed By: #### URIC, CMP #### [facility] [address] [address] [address] Renny YangGFR-NON AF LAO>60Normal>=60The [facility] HospitalComment on above:Performed By: #### URIC, CMP #### [facility] [address] [address] [address] Renny PatelGlobulin (S) [Mass/Vol]3.9 g/dLNormalThe [facility] HospitalComment on above:Performed By: #### URIC, CMP #### [facility] [address] [address] [address] Renny PatelGlucose [Mass/Vol]123 mg/dLCritically tmzg58-862Ytz [facility] HospitalComment on above:Performed By: #### URIC, CMP #### [facility] [address] [address] [address] Renny PatelPotassium [Moles/Vol]4.3 mmol/LNormal3.5-5.1The [facility] Comment on above:Performed By: #### URIC, CMP #### [facility] [address] [address] [address] Renny PatelProtein [Mass/Vol]7.7 g/dLNormal6.4-8.2The [facility] Comment on above:Performed By: #### URIC, CMP #### [facility] [address] [address] [address] Renny PatelSodium [Moles/Vol]136 mmol/JNxyfdz853-810Ymy [facility] Comment on above:Performed By: #### URIC, CMP #### [facility] [address] [place] [address] Dr. Renny PatelUrea nitrogen [Mass/Vol]15.0 mg/dLNormal7.0-18.0[facility] HospitalComment on above:Performed By: #### URIC, CMP #### [facility] [address] [place] [address] Dr. Renny PatelUrea nitrogen/Creatinine [Mass ratio]15.2 mg/mgNoalThFairfield Medical CenterComment on above:Performed By: #### URIC, CMP #### [facility] [address] [place] [address] Dr. Renny PatelURIC ACID SERUMon 72-03-8410Wjrlf [Mass/Vol]4.9 mg/dLNormal 3.5-7.2[facility] HospitalComment on above:Performed By: #### URIC, CMP #### [facility] [address] [place] [address] Dr. Renny Patel Vital Signs Date TimeVital SignValuePerforming ShgxsdqfsVyebrggq46-45-4705 08:040Body ugqrqe838 cmDk Diaz MD Work Phone: [facility] HospitalEvmutlbbpe56-09-0212 08:230400Body mass index (BMI) [Ratio]31.46 kg/w9FgbhaoDk Diaz MD Work Phone: [phone] HospitalLqxbduwwlh99-89-7163 08:Body .13 kgDk Diaz MD Work Phone: [phone])323-[facility] HospitalRe[facility] HospitalOplsidjzvk67-33-9279 08:040Diastolic blood hhvextbh92 mm[Hg]Dk Diaz MD Work Phone: [phone])125-[facility] HospitalRe[facility] HospitalLqmzxgnktq16-75-3486 08:23-0400Systolic blood jicwjmhe473 mm[Hg]Dk Diaz MD Work Phone: [facility] HospitalEsobqraiwh85-59-9038 08:02-0400Body bfrlyp344 cm Dk Diaz MD Work Phone: 1(650)[facility]-0654[facility] HospitalKdxipxmjpj03-04-7296 08:02-0400Body mass index (BMI) [Ratio]30.83 kg/i7RnaqydDk Diaz MD Work Phone: 1(144)[address] [place], [place] 6642507-15-2025 08:02-0400Body .3 kgDk Diaz MD Work Phone: 1(008)[address] [place], [place] [address]642507-15-2025 08:02-0400Diastolic blood rjpbzayc95 mm[Hg]Dk Diaz MD Work Phone: [phone] HospitalWcwmsmemvg74-74-2860 08:02-0400Heart rate67 /min Dk Diaz MD Work Phone: 1(728)[facility]villeJeff[facility] HospitalPkncgykoch67-75-6070 08:02-0400Systolic blood mm[Hg]Dk Diaz MD Work Phone: [facility] HospitalTvlzgtfyxa12-81-6136 11:55-0500Body temperature 98.4 [degF]Cece Xie MD Work Phone: [facility]12-12-2024 11:55-0500Diastolic blood poiojpjp05 mm[Hg]Cece Xie MD Work Phone: [facility]12-12-2024 11:55-0500Heart rate69 /Umu Xie MD Work Phone: [facility]12-12-2024 11:55-0500 Respiratory rate16 /Umu Xie MD Work Phone: [facility]12-12-2024 11:55-9631DpT5% (BldA) [Mass fraction]97 %Cece Xie MD Work Phone: [facility]12-12-2024 11:55-0500Systolic blood gbwljgfy342 mm[Hg]Cece Xie MD Work Phone: [facility]12-10-2024 11:43-0500Body rthcta260.5 cmSelkelly Xie MD Work Phone: [facility]12-10-2024 11:43-0500Body mass index (BMI) [Ratio]30.87 kg/e9UigpjbCece Xie MD Work Phone: [facility]12-10-2024 11:43-0500Body hwhdro472.04 kgCece Xie MD Work Phone: [facility]11-20-2024 09:06-0500Blood Pressure LocationKathy Lue [facility]11-20-2024 09:06-0500Diastolic blood xwdwpade38 mm[Hg]Maura Lue [facility]11-20-2024 09:06-0500Heart rate62 /minKathy Lue [facility]11-20-2024 09:06-0500Systolic blood zpdkhral906 mm[Hg]Maura Lue [facility]09-11-2024 09:11-0400Blood Pressure LocationKathy Lue [facility]09-11-2024 09:11-0400Diastolic blood mm[Hg]Maura Lue [facility]09-11-2024 09:11-0400Heart rate78 /minKathy Lue [facility]09-11-2024 09:11-0400Respiratory rate16 /minKathy Lue [facility]09-11-2024 09:11-0400Systolic blood lhigquis871 mm[Hg]Maura Lue [facility]05-14-2024 15:28-0400Diastolic blood vljtdnex85 mm[Hg]JUSTO ARIES [facility]05-14-2024 15:28-0400Mean blood opevethu853 mm[Hg]JUSTO ARIES [facility]05-14-2024 15:28-0400Systolic blood zczrvbyc002 mm[Hg]JUSTO ARIES [facility]05-14-2024 15:16-0400Blood Pressure LocationJENNIFER ARIES [facility]05-14-2024 15:16-0400Diastolic blood mm[Hg]JUSTO ARIES [facility]05-14-2024 15:16-0400Heart rate87 /minJENNIFER ARIES [facility]05-14-2024 15:16-0400Systolic blood qudchguj264 mm[Hg]JUSTO ARIES [facility] Encounters Encounter DateEncounter TypeCare ProviderFacilityStart: 39-83-0148tlvtomefew Maura Torres LueFacility:EU [place]vueStart: 84-07-1601vokgwpcqbwAuspkv Anamika Facility: [place]Start: 02-23-2025 End: 77-91-6846Vacwnzmiguelito Diaz MD Work Phone: [facility] [place] [facility]ologyStart: 02-23-2025 End: 62-14-4538Fmhepl Maxwell Diaz MD Work Phone: [facility] [place] [facility]olaryngologyStart: 02-23-2025 End: 30-22-7336Eopbdi outpatient visit 15 minutesDk Diaz MD Work Phone: [facility] [place] OtolaryngologyComment on above:Conductive hearing loss of left ear with unrestricted hearing of right ear (Primary Dx); Referred otalgia of left earStart: 02-23-2025 End: 38-77-5325ixfqvbhfjoQUKZUY H TIMMISNot AvailableStart: 02-12-2025 End: 64-44-2456tgoasfeifoMqslja H TimmisFacility:FTMCStart: 02-12-2025 End: 39-31-0019Ovdznecrc Result EncounterDk Diaz MD Work Phone: noms External Department UnsolicitedStart: 02-12-2025 End: 16-52-3529Ohyrijipv Result EncounterDk Diaz MD Work Phone: noms External Department UnsolicitedStart: 02-12-2025 End: 42-74-7932ukxguxuejtJlskc J YouskoFacility:FTMCStart: 02-05-2025 End: 39-09-5800Gmeaccvfn encounterDk Diaz MD Work Phone: noms CI ENTComment on above:CT and rx to Dr Michelle Start: 02-02-2025 End: 01-92-4244Mydczk Maxwell Diaz MD Work Phone: noms CI ENTStart: 02-02-2025 End: 86-26-8561Ruhaey flowsheetDk Diaz MD Work Phone: noms CI ENTStart: 02-02-2025 End: 51-95-7238Smywyj outpatient new 45 minutesHilary Shanika Diaz MD Work Phone: noms CI ENTComment on above:Mixed conductive and sensorineural hearing loss of left ear with restricted hearing of right ear (Pr imary Dx); Pulsatile tinnitus of left earStart: 02-02-2025 End: 90-99-1118tycncflprfXPUIIR H TIMMISNot AvailableStart: 12-30-2024 End: 72-89-2725trzqxgmlptLtjkui TannaFacility:EU [place]Start: 12-30-2024 End: 92-11-8082Yqpdwfa encounter procedureLauren Anamika [facility] start: 26-81-5929bunsgwqtoqEUTQBQD P HOUSEFacility:[facility] ClinicStart: 11-30-2024 End: 10-08-8977ubhdchxstaDVIUJRJ P HOUSEFacility:[facility] HospitalStart: 87-78-7099adomahhlbeTADIJMQ P HOUSEFacility:[facility] ClinicStart: 11-19-2024 End: 17-24-4022dqjpgqxnkcMHBUPII P HOUSEFacility:[facility] ClinicStart: 10-28-2024 End: 48-23-5537qokihbboniRoacij TannaFacility:EU [place]vueStart: 07-27-2024 End: 41-10-5631Izrxvg Mauricio WHITESIDE Work Phone: noms SWS ORTHOStart: 07-27-2024 End: 22-18-8953Pzksha Mauricio WHITESIDE Work Phone: noms SWS ORTHOStart: 07-27-2024 End: 81-71-5948xawurkurkeDVMMENS J MEYERNot AvailableStart: 07-27-2024 End: 37-27-5579Adgdpt outpatient visit 15 minutesMattmilton WHITESIDE Work Phone: noms [facility] ORTHOComment on above:Acute pain of right knee (Primary Dx); Acute pain of left knee; History of bilateral knee replacementStart: 06-30-2024 End: 24-61-5009Eifusdkyuc and management of inpatientSinga Xie MD Work Phone: st[facility] 7KComment on above:Lumbar stenosis with neurogenic claudication (Primary Dx)Start: 06-26-2024 End: 75-94-2125Hftkbgmtj for preprocedural laboratory examinationSELKELLY [facility]uggan [facility] CenterStart: 44-95-3320Wohyoktdr for other preprocedural examinationDONSHASHA [facility] CenterStart: 06-26-2024 End: 14-77-4161Omzfykuypazug examination doneStr [facility] Work Phone: Start: 06-26-2024 End: 90-35-7189wipcbzfzomCHUIIO Urban [facility] CenterStart: 06-26-2024 End: 84-79-2237Uwdpzdijye hospital visit by physicianStr Xr 1 Op ExpressSTRZ Outpt ExpressComment on above:Pre-op evaluationStart: 06-10-2024 End: 31-57-6508Bzhvao flowsheetJr. Hudson Keller DO Work Phone: noms [facility] ORTHOStart: 06-10-2024 End: 66-36-3403Vlxipa flowsheetJrJennifer Keller DO Work Phone: noms [facility] ORTHOStart: 06-10-2024 End: 12-80-2259Zrtqoli encounter Mariann Payne [facility] start: 06-10-2024 End: 94-28-1589Wyicmr outpatient visit 15 minutesJr. Hudson Fisher Stepjewel DO Work Phone: NOMS SWS ORTHOComment on above:Lumbar back pain with radiculopathy affecting left lower extremity (Primary Dx); Acute pain of left knee; History of left knee replacementStart: 06-10-2024 End: 88-77-1403bomaktkjevAlmak MJennifer LueFacility:EU [place]vueStart: 06-01-2024 End: 92-33-6849hncjyleyelHYAKJKWU Stephen VARGASERNot AvailableStart: 06-01-2024 End: 36-91-9138Gbkucn flowsheetJonathan D Zahler DO Work Phone: NOIL NB OPHTStart: 06-01-2024 End: 99-78-9736Hgxiqr flowsheetJonathan D Zahler DO Work Phone: NOMS NB OPHTStart: 05-19-2024 End: 60-28-0107Fznjvm flowsheetJonathan D Zahler DO Work Phone: NOEY NB OPHTStart: 05-19-2024 End: 22-61-0415Wcvqhk flowsheetJonathan D Zahler DO Work Phone: NOKC NB OPHTStart: 05-19-2024 End: 55-57-2106gmhmbfihetKIZCEWOH D ZAHLERNot AvailableStart: 05-19-2024 End: 73-43-7756Hguiae outpatient new 45 minutesJonatgeorge Mitchell Zahler DO Work Phone: NOMS NB OPHTComment on above:Age-related nuclear cataract of both eyes (Primary Dx)Start: 16-50-0362ywxmynbqlxMoplfj X Orzech Facility: [place]vueStart: 04-15-2024 End: 00-67-5954Bfezxr flowsheetJr. Hudson Fisher Stepjewel DO Work Phone: noms SWS ORTHOStart: 04-15-2024 End: 10-05-1887Gixyvz flowsheetJr. Hudson Fisher Stepjewel DO Work Phone: noms SWS ORTHOStart: 04-15-2024 End: 49-05-7066Tdejoe outpatient visit 25 minutesJr. Hudson Keller DO Work Phone: noms SWS ORTHOComment on above:Lumbar back pain with radiculopathy affecting left lower extremity (Primary Dx)Start: 04-15-2024 End: 66-88-6832elnfsdyhpeWV., HUDSON Saldaña AvailableStart: 04-01-2024 End: 07-69-0374tpgirepkitUpxwa M. LueFacility:EU [place]vueStart: 04-01-2024 End: 11-73-6561Zwfzggf encounter procedureMaura Payne [facility] start: 03-11-2024 End: 62-08-1681Wkvqdj flowsheetJr. Hudson Keller DO Work Phone: noms SWS ORTHOStart: 03-11-2024 End: 88-27-7816Xgmedn flowsheetJr. Hudson Keller DO Work Phone: noms SWS ORTHOStart: 03-11-2024 End: 48-43-2429Aquzbp outpatient visit 25 minutesJr. Hudson Keller DO Work Phone: noms SWS ORTHOComment on above:Lumbar back pain with radiculopathy affecting left lower extremity (Primary Dx)Start: 03-11-2024 End: 85-97-8817qekatxdfjzTV., HUDSON Saldaña AvailableStart: 03-05-2024 End: 09-77-1144Tppqukuhs Result EncounterMattmilton WHITESIDE Work Phone: noms External Department UnsolicitedStart: 03-05-2024 End: 19-47-4354Emzrujiai Result EncounterMabethany WHITESIDE Work Phone: noms External Department UnsolicitedStart: 02-10-2024 End: 04-02-0135Laktwxg encounter procedureMaura Payne [facility] Start: 12-11-2023 End: 86-38-0984Jhl-SiteMaura Payne [facility] Isidoro Start: 12-03-2023 End: 36-43-2545Bnptsgt encounter procedureJESHEILA CHRIS [facility] Jonathan start: 66-47-5568Obshnhzit for preprocedural laboratory examinationDR ELMO WALDROPBluffton Hospital HospitalStart: 03-30-2022 End: 76-72-9212iieoelcexbBegp LaffaesterFacility:[facility] Start: 03-30-2022 End: 15-40-6634Qaldwsfd [facility] Elmo Vela Work Phone: [facility] CampusStart: 03-28-2022 End: 83-87-0224ifzlbeobauWW PAUL C LAFFAYFacility:S8Akjwd: 03-28-2022 End: 00-67-4885Nmkrdcklq for preprocedural laboratory examinationDR ELMO VELAFacility:W8Kqtcy: 48-56-3375fmfnzjlpwyVD RICHARD M WIECEKFacility:N8Hyshr: 98-31-1354Cuzsdyyqb for preprocedural cardiovascular examinationDR ELMO Kunz [facility] HospitalStart: 02-27-2022 End: 67-05-9332Snbgflvlg for preprocedural cardiovascular examinationDR ELMO VELAFacility:Q1Pxfwu: 02-27-2022 End: 32-24-0163fqqcznnpogUA PAUL C LAFFAYFacility:G8Tqrcm: 01-17-2022 End: 90-01-4211zvpjcjsqxxCR CHARLES HOUSEFacility:H1 Procedures DateProcedureProcedure DetailPerforming ClinicianStart: 90-44-2722JM ORBIT SELLA IAC W/ CONTRASTHilary H Yao GÓMEZ Work Phone: Start: 11-41-9610Rndhywakeh examination knee 1/2 views Marci WHITESIDE Work Phone: Start: 89-37-5442Ljrrcmjyxw examination knee 1/2 views Marci WHITESIDE Work Phone: Start: 66-63-8564Iyskd gap [Moles/Vol]Victor Manuel D. Palte PA-C Work Phone: Start: 72-74-8823Qweov metabolic panel calcium total Victor Manuel Ezra Palte PA-C Work Phone: Start: 26-30-4898JTQVQKBFIF FILTRATION RATE, ESTIMATED Victor Manuel Ezra Palte PA-C Work Phone: Start: 57-58-3402Ljgks gap [Moles/Vol]Victor Manuel D. Palte PA-C Work Phone: Start: 30-74-5886Comlk metabolic panel calcium total Victor Manuel MitchellJennifer Palte PA-C Work Phone: Start: 76-33-4676DFXHDWHQXK FILTRATION RATE, ESTIMATED Victor Manuel Ezra Palte PA-C Work Phone: Start: 40-68-3126Nohxz spine 1 view specify level Cece Xie MD Work Phone: Start: 06-30-2024 End: 75-82-9864Uuybjpbp post/posterolatrl/postinterbody lumbarSelvon Urban Xie MD Work Phone: Start: 06-30-2024 End: 68-57-8194Mcndxpbds spine surgery local from same incisionSinga Xie MD Work Phone: Start: 06-30-2024 End: 54-42-0848Fpx facetectomy & foramotomy 1 segment lumbarSelvon Urban Xie MD Work Phone: Start: 06-30-2024 End: 94-46-2439PJ PARRISH FACETEC/FORAMOT DRG ARTHRD LMBR EA ADDL Patti Xie MD Work Phone: Start: 06-30-2024 End: 79-05-6495SD PARRISH FACETEC/FORAMOT DRG ARTHRD LUMBAR 1 VRT Patti Xie MD Work Phone: Start: 32-08-4636Spoxekyn screenSelkelly Xie MD Work Phone: Comment on above:Performed at [facility] [address] [place] [address]Jzixq: 62-15-0266Yujbd typing serologic aboAlexis Mayo WHITESIDE Work Phone: Start: 35-39-6330Jstav gap [Moles/Vol]Cece Xie MD Work Phone: Start: 91-61-7460Oxsmi metabolic panel calcium total Cece Xie MD Work Phone: Start: 00-67-1766DELBWNXPVZ FILTRATION RATE, ESTIMATED Cece Xie MD Work Phone: Start: 45-31-5825Jmc routine ecg w/least 12 lds w/i&r [facility] PA-CStart: 18-31-2234Idyjkzkzuo exam chest 2 [facility] PA-CStart: 69-33-4356Lsvgwqwpceb resistant Staphylococcus aureus (MRSA) DNA [Presence] in Unspecified specimen by GEORGIE with probe detectionSeira Xie MD Work Phone: Start: 06-01-2024 End: 65-90-1096Utbhf medical xm&eval intermediate estab ptAge-related nuclear cataract of both eyesIvan Ba DO Work Phone: comment on above:Age-related nuclear cataract of both eyes (Primary Dx)Start: 18-80-2365Qzq bmtry prtl coher intrfrmtry io lens pwr calIvan Ba DO Work Phone: Start: 02-09-8253NO LUMBAR SPINE WO CONMarci WHITESIDE Work Phone: Start: 81-90-2423Jxlvd knee replacementJESHEILA CHRIS Start: 15-43-8633ZDD screeningDR COLT HOUSEComment on above:Performed By: #### PSAD #### [facility] [address] [place] [address] Dr. Lawson ChangStart: 60-37-9584Zkgwz knee replacementJENNIFER ARIES Start: 17-09-6759PorojqzgeqqJr. Arianna DO Work Phone: Herniated structure (morphologic abnormality)JUSTO CHRIS History of operative procedure on kneeHistory of left knee replacementJr. Hudson Fisher Arianna DO Work Phone: History of operative procedure on kneeHistory of bilateral knee replacementMarci WHITESIDE Work Phone: Insertion of hip prosthesisJUSTO CHRIS Knee region structure (body structure)JUSTO CHRIS Plan of Treatment DateCare ActivityDetailAuthorStart: 34-98-1563Wbciutpmuuy Syncytial Virus (RSV) or age 60 yrs+ (1 - 1-dose 75+ series)Respiratory Syncytial Virus (RSV) or age 60 yrs+ (1 - 1-dose 75+ series)[facility] HospitalStart: 57-55-3070TRpZ/Tdap/Td vaccine (2 - Td or Tdap)DTaP/Tdap/Td vaccine (2 - Td or Tdap)[facility] HospitalStart: 65-26-7421Kklilrmdu for malignant neoplasm of colonNOMS HealthcareStart: 57-50-8824Dfiglkbbw for malignant neoplasm of colonFIT-DNANOMS HealthcareStart: 07-25-2026 End: 27-02-2150Mvqzivm encounter procedureNOMS SWS ORTHOStart: 09-01-2025 End: 92-57-6968Cvzwowg encounter ndfiajqbo64/11/2026 8:00 AM EST Office Visit [facility] [place] [facility] [address] [facility] [address] [place] [phone] Dk Diaz MD [address] [place] [address] [place] [address] [facility] [place] [facility]olaryngologyStart: 08-25-2025 End: 23-72-2755Dnqworys Uanebar3508/25/2025 8:00 AM EST Clinical Support [facility] [place] [facility] [address] [facility] [address] [place], [id number] Brooke Gonzalez, [facility] [address] [place] [address] [facility] [place] AudiologyStart: 06-10-2025 End: 12-39-8778Jfkyufa encounter procedureNOMS [facility] ORTHOStart: 06-07-2025 End: 65-80-9842Nmshuep encounter llvebwkdv71/17/2025 8:00 AM EST Office Visit [facility] [place] [facility] [address] [facility] [address] [place], [place] Marci Ponce, PA [address] [place] [address] [facility] [place] OrthopaedicsStart: 74-15-3725IHMDC-19 Vaccine ( season)COVID-19 Vaccine ( season)NOMS HealthcareStart: 59-91-4382Ncdtbwgrb vaccinationInfluenza Vaccine (#1)[facility] HealthcareStart: 03-02-2025 End: 37-28-7315Xqjevif encounter procedureNOMS CI ENTStart: 02-23-2025 End: 97-34-9898Vehxiar encounter tdafychqj10/05/2025 8:30 AM EDT Office Visit [facility] [place] [facility] [address] [facility] [address] [place] [address] Dk Diaz MD [address] [facility] [address] [place] [address] ArrivedNOMS [place] OtolaryngologyComment on above:ArrivedStart: 02-02-2025 End: 92-13-3711Qxmlyls encounter snrhnanfc73/15/2025 8:10 AM EDT Office Visit [facility] [address] [facility] [address] [place] [address] Dk Diaz MD [address] [facility] [address] [place] [address] ArrivedNOMS CI ENTComment on above:ArrivedStart: 07-27-2024 End: 22-77-6483Pkcqzjo encounter aurwguvcr30/06/2025 8:00 AM EST Office Visit [facility] [address] [facility] [address] [place] [address] Marci Ponce PA [address] [facility] [address] [place] [address] [facility] ORTHOPAEDICSStart: 06-30-2024 End: 44-57-6471Qxqiuqmmc to same day surgery lfmgze1906/30/2024 2:45 PM EST - 06/30/2024 5:39 PM EST Surgery [facility] [address] [place] [address] Cece Xie MD [address] [place] [address] [place] [address] L4-S1 Decompression and Fusion, L4-L5 TLIFSTRZ ORComment on above:L4-S1 Decompression and Fusion, L4-L5 TLIFStart: 06-30-2024 End: 84-54-3897Mnwflrtj post/posterolatrl/postinterbody lumbarLUMBAR LAMINECTOMY FUSION INSTRUMENTATION POSTERIOR Degeneration of intervertebral disc of lumbar region, unspecified whether pain present 06/30/2024 2:45 PM ESTSTRZ ORStart: 14-71-0807Ejutifimls hospital visit by ltxqrpoxi94/10/2024 2:45 PM EST Hospital Encounter [facility] [address] [facility] [place] [address] Cece Xie MD [address] [place] [address] [place] [address] [facility] ORStart: 06-10-2024 End: 61-60-5771Kwvfkuj encounter procedureNOMS SWS ORTHOComment on above:Arrived Start: 06-01-2024 End: 61-68-3524Bdoykbj encounter wxwnxmeie32/11/2024 3:15 PM EST Office Visit [facility] [address] [place] [address] [place] [address] Ivan Ba, DO [address] [place] [address] NOM[facility] NB OPHTStart: 05-19-2024 End: 20-75-2966Pllfsjl encounter uzxzromcb61/29/2024 9:15 AM EDT Office Visit [facility] [address] [place] [address] Ivan Ba, DO [address] [place] [address] [facility] NB OPHTStart: 04-15-2024 End: 48-22-6257Jjwiyzx encounter procedureNOMS SWS ORTHOComment on above:Arrived Start: 80-86-3211XFSBM-19 Vaccine ( season)COVID-19 Vaccine ( season)[facility] HospitalStart: 88-41-6296Oshgodlmd vaccination Influenza Vaccine (#1)N[facility] HealthcareStart: 03-11-2024 End: 63-51-7696Zrkulrv encounter uziekanww15/21/2024 8:00 AM EDT Office Visit [facility] [address] [place] [address] [place] [phone] Jr. Arianna Hudson , DO [address] [facility] [address] [place] [address] [facility] ORTHOComment on above: ArrivedStart: 61-06-3964Juirgkndu vaccinationFlu vaccine (#1)[facility] HospitalStart: 89-64-0497Gewdgzdy vaccine (1 of 2)Shingles vaccine (1 of 2)[facility] HospitalStart: 37-92-5784Gyaezmrle for malignant neoplasm of colon [facility] HospitalStart: 88-56-3747Lnkofzjq screenDiabetes screenJohnston Memorial HospitalStart: 45-49-9262Zwwhpzhfy C screeningHepatitis C screenJohnston Memorial HospitalStart: 45-33-1797IAE screeningHIV screenJohnston Memorial HospitalStart: 25-25-9488Eplgiedfay ScreenDepression ScreenJohnston Memorial HospitalStart: 91-21-1007Ptjts panelLipidsJohnston Memorial HospitalStart: 61-21-3127HRgS/Tdap/Td Vaccines (1 - Tdap)DTaP/Tdap/Td Vaccines (1 - Tdap)[facility] HospitalStart: 69-48-2695KAT Vaccines (1 of 1 - Standard series)MMR Vaccines (1 of 1 - Standard series)[facility] HospitalStart: 57-98-0172Gqbndwcgw for malignant neoplasm of colonBE[facility] VALLEY [facility] Healthcare End: 06-48-6489Cdlmd metabolic 2000 panel - Serum or PlasmaBasic Metabolic Panel Lab Routine Daily for 3 Days starting 07/01/2024 until 07/03/2024, 2 completed [facility] HospitalComment on above:Daily for 3 Days starting 07/01/2024 until 07/03/2024, 2 completed End: 92-50-9423Jhhsronfms and hematocrit, bloodHemoglobin and hematocrit, blood Lab Routine Daily for 3 Days starting 07/01/2024 until 07/03/2024,2 [facility] above:Daily for 3 Days starting 07/01/2024 until 07/03/2024, 2 completedOxygen therapy [Minimum Data Set]Initiate Oxygen Therapy Protocol Respiratory Care Routine As Needed until discontinued starting 06/21 0 [facility] on above:As Needed until discontinued starting 06/30/2024Spirometry panelIncentive spirometry Respiratory Care Routine Every 2hr while awake until discontinued starting 06/30/2024on [facility] on above:Every 2hr while awake until discontinued starting 06/30/2024 Immunizations Immunization DateImmunizationNotesCare LoricktoXjcexadn00-42-2191bayggtena virus vaccine, unspecified formulationJENNIFER ARIES [facility]10-19-2023tetanus toxoid, reduced diphtheria toxoid, and acellular pertussis vaccine, adsorbedJENNIFER ARIES [facility]04-06-2021SARS-CoV-2 (COVID-19) mRNA BNT-162b2 vaxJENNIFER ARIES [facility]03-16-2021SARS-CoV-2 (COVID-19) mRNA BNT-162b2 vaxJENNIFER ARIES [facility]11-13-2018influenza virus vaccine, unspecified formulationJENNIFER ARIES [facility]11-13-2018seasonal influenza, intradermal, preservative freeJr. Stepanic DO Work Phone: [facility] Payers DatePayer CategoryPayerPolicy [id number] [id number] Health Insurance [id number] [facility]IA [facility] [id number] 2022-Present [phone] [address] [place] [id number] 14-51-5647Jrls-[id number] 2.16.840.1.930230.3.579.2.593 [id number] 2.16.840.1.753287.3.57[id number] 2.16.840.1.839609.3.57[id number] 2.16.840.1.980318.3.57[id number] 2.16.840.1.801484.3.57[id number] 2.16.840.1.230460.3.5[id number] 2.16.840.1.221165.3.57[id number] 2.16.840.1.053559.3.57[id number] 2.16.840.1.366589.3.5[id number] 2.16.840.1.325913.3.57[id number] 2.16.840.1.087869.3.57[id number] 2.16.840.1.834135.3.57[id number] 2.16.840.1.344485.3.57[id number] 2.16.840.1.747199.3.57[id number] 2.16.840.1.645796.3.579.[id number] 2.16.840.1.291771.3.57[id number] 2.16.840.1.372827.3.579.[id number] 2.16.840.1.233073.3.579.[id number] 2.16.840.1.565226.3.57[id number] 2.16.840.1.251962.3.57[id number] 2.16.840.1.470088.3.579.2.28431-23-9591Qrqoibw36228908 2.16.840.1.017926.3.579.2.90810-56-4424Eibqewb96889824 2.16.840.1.779791.3.579.2.[id number] 2.16.840.1.815832.3.579.2.525872-42-2552Fyhqdzy4619878 2.16.840.1.322681.3.579.2.837180-01-4027Dltkjra4767447 2.16.840.1.218643.3.579.2.893407-61-4294Emcstzk1210321 2.16.840.1.032567.3.579.2.293305-90-6992Uzsfdah1735844 2.16.840.1.294793.3.579.2.905253-08-6299Eimagki2222654 2.16.840.1.503620.3.579.2.091192-15-5357Xzlofke4048155 2.16.840.1.485913.3.579.2.158593-89-0623Ugsmeag9209698 2.16.840.1.438607.3.57[id number] 2.16.840.1.903564.3.579.2.735052-80-8522Ctrt[id number] 2.16.840.1.685460.3.579.2.531 Social History DateTypeDetailFacilityTobacco smoking status NHISUnknown if ever smokedMiddletown Hospital Work Phone: Start: 58-03-1415Kqs Assigned At [facility]tart: 12-28-2022 End: 09-82-6423Ucvuzfw smoking statusNever smoked tobacco (finding)[facility] CenterueStart: 74-06-7457Jviylgp smoking statusNeverExecutive Urology of [facility] South Campustart: 04-15-2024 End: 47-13-6413Xef Assigned At [facility] Hospitaltart: 12-28-2022 End: 68-29-1200Fxouggs use and exposureSmokeless tobacco non-userNOMS Healthcare Start: 02-04-2024 End: 51-68-7195Eprinuuhp beverage intakeCurrent drinker of alcohol (finding)[facility] HealthcareStart: 04-15-2024 End: 81-83-0895Upmfgkl of Social functionNOMS HealthcareStart: 99-64-3527Wyazfmy Commentcaffeine intake:2-3 cups/dayBE[facility] RIVER VALLEY HOSPITAL HealthcareStart: 84-56-1428Wij assigned at birthNot on fileBEAR RIVER VALLEY HOSPITAL HealthcareStart: 13-06-7883Ghjbpk identityIdentifies as male gender (finding)[facility] HealthcareStart: 68-14-4194Mpkmrjh CommentsociallyBon Maurice Zamora HealthSexual OrientationExec[facility] sexMale (finding)[facility] Medical Equipment Procedure CodeEquipment CodeEquipment Original TextEquipment IdentifierDates System Seal 5ml Spine Dura Hydrgel Polyeth Glycol - [id number] FDAStart: 00-10-7122Mxj Screw 5.5-6.0 - [id number]: 98-12-6773Cgnto Poly Solid 7.5x45 - [id number]: 09-73-1475Coamy Poly Solid 7.5x50 - [id number]: 30-52-7006Llx Ti Prebent 5.5x60 - [id number]: 58-82-8150Nhb Ti Prebent 5.5x65 - [id number]: 06-30-2024 Functional Status AnhjXhroqzvwbaVwcwchOfoocmyj94-10-3938Gvkuypqago StatusN/AExec[facility]09-11-2024Functional StatusN/A[facility]07-22-2024Functional StatusN/A [facility]05-14-2024Functional StatusN/A[facility] Clinical Notes 12-03-2023 to 02-23-2025 Note Date & WbvpNtcvEuydvxau76-62-5431 History of Present illness Narrative* Dk Diaz MD - 02/23/2025 8:30 AM EDT Subjective Patient ID: Juan Francisco Carmen is a 59 y.o. male who presents for Ear Problem ([place] [facility] [place] CT reviewed and there is no otologic abnormality evident. Pt now notes intermittent pain behind theear Family History Problem Relation Name Age of Onset Kidney failure Mother Brit Diabetes Mother Brit Hypertension Mother Brit Other (hypoglycemia) Father Andrew Other (cervical spine fracture) Father Andrew Gout Father Andrew Diabetes Father Andrew Hypertension Father Andrew Parkinsonism Father Andrew Other (hypoglycema) Father Andrew Other (gout) Father Andrew Diabetes Brother Kumar Diabetes Maternal Grandmother Erva Colon cancer Maternal Grandfather Colon cancer Paternal Grandfather Active Ambulatory Problems Diagnosis Date Noted Acute idiopathic gout of left ankle 04/22/2023 Arthritis of knee, left 04/22/2023 Arthritis of right knee 04/22/2023 Primary osteoarthritis of left knee 10/09/2016 Arthritis of right hip 04/22/2023 Osteoarthritis of right hip 04/22/2023 Artificial knee joint present 04/22/2023 Family history of diabetes mellitus 04/11/2021 Gastroesophageal reflux disease without esophagitis 09/20/2016 Generalized anxiety disorder 07/18/2018 Gouty arthritis 12/02/2017 Incarcerated umbilical hernia 04/22/2023 Lumbago-sciatica due to displacement of lumbar intervertebral disc 10/08/2016 Mixed hyperlipidemia 09/23/2016 Other chronic pain 09/20/2016 Overweight (BMI 25.0-29.9) 04/22/2023 Overweight 04/11/2021 Pain in right knee 04/22/2023 Periumbilical pain 04/22/2023 Prediabetes 04/11/2021 Primary hypertension 09/25/2017 Primary localized osteoarthritis of pelvic region and thigh 06/24/2019 Primary osteoarthritis 04/22/2023 Status post total hip replacement, right 04/22/2023 Status post total knee replacement 04/22/2023 BPH with urinary obstruction 02/01/2025 ED (erectile dysfunction) 02/01/2025 Feeling of incomplete bladder emptying 02/01/2025 Increased prostate specific antigen (PSA) velocity 02/01/2025 Lumbar stenosis with neurogenic claudication 06/30/2024 Type 2 diabetes mellitus (HCC) 02/01/2025 Heartburn 02/04/2025 Dietary counseling and surveillance 02/04/2025 Type 2 diabetes mellitus with diabetic neuropathy, without long-term current use of insulin ([facility]) 02/01/2025 Resolved Ambulatory Problems Diagnosis Date Noted No Resolved Ambulatory Problems Past Medical History: Diagnosis Date Acute idiopathic gout Alcohol abuse Appendicitis Arthritis 07/22/2012 Bronchitis Cataract COVID-19 Depression Elevated BP without diagnosis of hypertension GERD (gastroesophageal reflux disease) History of gout HTN (hypertension) Hyperlipidemia Hypertension Lumbar pain Neuralgia Obesity Pre-diabetes Sinusitis Vertigo Past Surgical History: Procedure Laterality Date APPENDECTOMY BACK SURGERY 1994 COLONOSCOPY 08/13/2013 normal/ [place] COLONOSCOPY 12/2018 normal 10 yrs FOREARM FRACTURE SURGERY Left 1976 JOINT ASPIRATION/INJECTION 09/2012 cervical facet joint injection, C3,4,5,6, left LUMBAR SPINE SURGERY 06/30/2024 L1 / S4/5 DECOMPRESSION / FUSION - DR XIE TOTAL HIP ARTHROPLASTY Left 11/20/2022 DR KELLER TOTAL KNEE ARTHROPLASTY Right 06/20/2022 DR KELLER TOTAL KNEE ARTHROPLASTY Left 05/16/2023 DR KELLER UMBILICAL HERNIA REPAIR 03/30/2022 URINARY SURGERY 02/2024 UROLIFT VASECTOMY WRIST FRACTURE SURGERY Right No Known Allergies Current Outpatient Medications on File Prior to Visit Medication Sig Dispense Refill allopurinol (Zyloprim) 100 MG tablet Take 150 mg by mouth Daily amLODIPine (Norvasc) 5 MG tablet Take 5 mg by mouth Daily esomeprazole (NexIUM) [address] capsule Take 40 mg by mouth lisinopril 20 MG tablet Take 20 mg by mouth Daily pravastatin (Pravachol) 40 MG tablet Take 40 mg by mouth Daily tamsulosin (Flomax) 0.4 MG 24 hr capsule Take 0.4 mg by mouth Daily No current facility-administered medications on file prior to visit. Objective Last Recorded Vitals Vitals: 02/23/25 0823 BP: 133/69 ENT Physical Exam Constitutional Appearance: patient appears well-developed, well-nourished and well-groomed, Communication/Voice: communication appropriate for developmental age; vocal quality normal; Assessment/Plan Diagnoses and all orders for this visit: Conductive hearing loss of left ear with unrestricted hearing of right ear Referred otalgia of left ear Pt may have otosclerosis, but the degree of HL on his audio would not warrant tx at this point. Repeat audio in 6 mo Pt's pain is due to his severe TMJ. Recommend referral to an oral surgeon specializing in TMJ documented in this encounterNOCedar County Memorial HospitalXojmcihctv52-02-6307 Telephone encounter Note* Telephone Encounter - Liv Diaz - 02/05/2025 10:52 AM EDT Called pt/pt verbalized understanding. [facility] HospitalBiwazxjcus77-39-1406 Miscellaneous Notes* Telephone Encounter - Liv Diaz - 02/05/2025 10:52 AM EDT Called pt/pt verbalized understanding. * Telephone Encounter - Yasemin Gibson MA - 02/05/2025 10:[address] CX at [facility] and Sent [place] [facility] * Telephone Encounter - Dk Diaz MD - 02/05/2025 9:14 AM EDT Cx [facility] order. [place] [facility] [place] temporal bone with contrast. Dx- Pulsatile tinnitus. Pt needs to contact Dr Michelle himself to get something to help him sleep. * Telephone Encounter - Liv Diaz - 02/05/2025 9:00 AM EDT Pt called in, he said his insurance company told him [facility] no longer does CT's and to send the [place] [facility] [place]. Also, at his appt he said there was going to be something sent to Dr Michelle to help him sleep . Pt wants to know if this was done. documented in this encounterReynolds County General Memorial HospitalQxgegyjgqq20-42-0842 Telephone encounter Note* Telephone Encounter - Yasemin Gibson MA - 02/05/2025 10:[address] CX at [facility] and [place] [facility] Lsbclpqlis74-70-5461 Telephone encounter Note* Telephone Encounter - Dk Diaz MD - 02/05/2025 9:14 AM EDT Cx [facility] order. [place] [facility] [place] bone with contrast. Dx- Pulsatile tinnitus. Pt needs to contact Dr Michelle himself to get something to help him sleep. [facility] [employer] Work Phone: [phone]) 469-680107-18-2025 Telephone encounter Note* Telephone Encounter - Liv Diaz - 02/05/2025 9:00 AM EDT Pt called in, he said his insurance company told him [facility] no longer does CT's and to send the [place] [facility] [place]. Also, at his appt he said there was going to be something sent to Dr Michelle to help him sleep . Pt wants to know if this was done. [facility] [id number] History of Present illness Narrative* Dk Diaz MD - 02/02/2025 8:10 AM EDT Subjective Patient ID: Juan Francisco Carmen is a 59 y.o. male who presents for Otitis Media 4-6 week h/o left pulsatile tinnitus. No illness or injury at onset. Denies change in hearing, but 01/26 audio shows left mixed HL with a 10-20dB HF ABG. Has a h/o severe left TMJ and has an oral appliance he doen not use. Review of Systems All other systems reviewed and are negative. Family History Problem Relation Name Age of Onset Kidney failure Mother Brit Diabetes Mother Brit Hypertension Mother Brit Other (hypoglycemia) Father Andrew Other (cervical spine fracture) Father Andrew Gout Father Andrew Diabetes Father Andrew Hypertension Father Andrew Parkinsonism Father Andrew Other (hypoglycema) Father Andrew Other (gout) Father Andrew Diabetes Brother Kumar Diabetes Maternal Grandmother Erva Colon cancer Maternal Grandfather Colon cancer Paternal Grandfather Active Ambulatory Problems Diagnosis Date Noted Acute idiopathic gout of left ankle 04/22/2023 Arthritis of knee, left 04/22/2023 Arthritis of right knee 04/22/2023 Primary osteoarthritis of left knee 10/09/2016 Arthritis of right hip 04/22/2023 Osteoarthritis of right hip 04/22/2023 Artificial knee joint present 04/22/2023 Family history of diabetes mellitus 04/11/2021 Gastroesophageal reflux disease without esophagitis 09/20/2016 Generalized anxiety disorder 07/18/2018 Gouty arthritis 12/02/2017 Incarcerated umbilical hernia 04/22/2023 Lumbago-sciatica due to displacement of lumbar intervertebral disc 10/08/2016 Mixed hyperlipidemia 09/23/2016 Other chronic pain 09/20/2016 Overweight (BMI 25.0-29.9) 04/22/2023 Overweight 04/11/2021 Pain in right knee 04/22/2023 Periumbilical pain 04/22/2023 Prediabetes 04/11/2021 Primary hypertension 09/25/2017 Primary localized osteoarthritis of pelvic region and thigh 06/24/2019 Primary osteoarthritis 04/22/2023 Status post total hip replacement, right 04/22/2023 Status post total knee replacement 04/22/2023 BPH with urinary obstruction 02/01/2025 ED (erectile dysfunction) 02/01/2025 Feeling of incomplete bladder emptying 02/01/2025 Increased prostate specific antigen (PSA) velocity 02/01/2025 Lumbar stenosis with neurogenic claudication 06/30/2024 Type 2 diabetes mellitus (HCC) 02/01/2025 Resolved Ambulatory Problems Diagnosis Date Noted No Resolved Ambulatory Problems Past Medical History: Diagnosis Date Acute idiopathic gout Alcohol abuse Appendicitis Arthritis 07/22/2012 Bronchitis Cataract COVID-19 Depression Elevated BP without diagnosis of hypertension GERD (gastroesophageal reflux disease) History of gout HTN (hypertension) Hyperlipidemia Hypertension Lumbar pain Neuralgia Obesity Pre-diabetes Sinusitis Vertigo Past Surgical History: Procedure Laterality Date APPENDECTOMY BACK SURGERY 1994 COLONOSCOPY 08/13/2013 normal/ [place] COLONOSCOPY 12/2018 normal 10 yrs FOREARM FRACTURE SURGERY Left 1976 JOINT ASPIRATION/INJECTION 09/2012 cervical facet joint injection, C3,4,5,6, left LUMBAR SPINE SURGERY 06/30/2024 L1 / S4/5 DECOMPRESSION / FUSION - DR XIE TOTAL HIP ARTHROPLASTY Left 11/20/2022 DR KELLER TOTAL KNEE ARTHROPLASTY Right 06/20/2022 DR KELLER TOTAL KNEE ARTHROPLASTY Left 05/16/2023 DR KELLER UMBILICAL HERNIA REPAIR 03/30/2022 URINARY SURGERY 02/2024 UROLIFT VASECTOMY WRIST FRACTURE SURGERY Right No Known Allergies Current Outpatient Medications on File Prior to Visit Medication Sig Dispense Refill allopurinol (Zyloprim) 100 MG tablet Take 150 mg by mouth Daily amLODIPine (Norvasc) 5 MG tablet Take 5 mg by mouth Daily lisinopril 20 MG tablet Take 20 mg by mouth Daily pravastatin (Pravachol) 40 MG tablet Take 40 mg by mouth Daily tamsulosin (Flomax) 0.4 MG 24 hr capsule Take 0.4 mg by mouth Daily [DISCONTINUED] atorvastatin (Lipitor) 20 MG tablet Take 20 mg by mouth in the morning. [DISCONTINUED] amLODIPine (Norvasc) 10 MG tablet Take 10 mg by mouth in the morning. [DISCONTINUED] amoxicillin (Amoxil) 500 MG tablet 4 tabs PO once 30-60 mins before procedure with food 4 tablet 3 [DISCONTINUED] esomeprazole (NexIUM) [address] capsule 1 tablet Oral one or 2 times weekly No current facility-administered medications on file prior to visit. Objective Last Recorded Vitals Vitals: 02/02/25 0802 BP: 108/72 Pulse: 67 ENT Physical Exam Constitutional Appearance: patient appears well-developed and well-nourished, Head and Face Appearance: head appears normal and face appears atraumatic; Ear Ear comments: Bryce ears normal other than a thin layer of cerumen coating TM after ears were candled. No objective tinnitus Nose External Nose: nares patent bilaterally; external nose normal; Internal Nose: nasal mucosa normal; Oral Cavity/Oropharynx Lips: normal; Teeth: normal; Gums: gingiva normal; Tongue: normal; Oral mucosa: normal; Hard palate: normal; Neck Neck: neck normal; neck palpation normal; Thyroid: thyroid normal; Respiratory Inspection: breathing unlabored; normal breathing rate; Auscultation: breath sounds are clear; Cardiovascular Inspection: extremities are warm and well perfused; no peripheral edema present; Auscultation: regular rate and rhythm; Assessment/Plan Diagnoses and all orders for this visit: Mixed conductive and sensorineural hearing loss of left ear with restricted hearing of right ear Pulsatile tinnitus of left ear No sign of active ME dz on exam to explain pt's tinnitus. Doubt it is the thin layer of cerumen. CTtemporal bone with contrast to evaluate for a glomus tumor. documented in this encounterReynolds County General Memorial [id number] Hospital Discharge instructions Patient Education 12/30/2024 09:09:15 Benign Prostatic Hyperplasia Benign Prostatic Hyperplasia Benign prostatic hyperplasia (BPH) is an enlarged prostate gland that is caused by the normal agingprocess. The prostate may get bigger as a man gets older. The condition is not caused by cancer. The prostate is a walnut-sized gland that is involved in the production of semen. It is located in front of the rectum and below the bladder. The bladder stores urine. The urethra carries stored urine ou t of the body. An enlarged prostate can press on the urethra. This can make it harder to pass urine. The buildup of urine in the bladder can cause infection. Back pressure and infection may progress to bladder damage and kidney (renal) failure. What are the causes? This condition is part of the normal aging process. However, not all men develop problems from thiscondition. If the prostate enlarges away from the [...] urethra. Follow these instructions at home: Take dzza-sze-aotsimc and prescription medicines only as told by [...] provider. Document Revised: 01/24/2022 Document Reviewed: 01/24/2022 L2C Patient Education 2023 [employer]. Follow Up Care 10/28/2024 13:26:05 With:Leelee Willson PA-C, URL Address: When:Within 2 Month(s) Comments:w/ HARSHAD [facility] 06-11-2025 NotePatient Education Urology Benign Prostatic Hyperplasia Benign prostatic hyperplasia (BPH) is an enlarged prostate gland that is caused by the normal agingprocess. The prostate may get bigger as a man gets older. The condition is not caused by cancer. The prostate is a walnut-sized gland that is involved in the production of semen. It is located in front of the rectum and below the bladder. The bladder stores urine. The urethra carries stored urine ou t of the body. An enlarged prostate can press on the urethra. This can make it harder to pass urine. The buildup of urine in the bladder can cause infection. Back pressure and infection may progress to bladder damage and kidney (renal) failure. What are the causes? This condition is part of the normal aging process. However, not all men develop problems from thiscondition. If the prostate enlarges away from the [...] this procedure, a tool is inserted through theopening at the tip of the penis (urethra). [...] procedure uses radio frequencies to destroy and removea small amount of prostate tissue. ? Interstitial laser coagulation (ILC). This procedure uses a laser to destroy and remove a small amount of prostate tissue. ? Transurethral electrovaporization (TUVP). This procedure uses electrodes to destroy and remove a small amount of prostate tissue. ? Prostatic urethral lift. This procedure inserts an implant to push the lobes of the prostate awayfrom the urethra. Follow these instructions at home: ??? Take ducb-bcu-ijpguod and prescription medicines only as told by [...] pain. ??? Your symptoms do not get (more content not included)...[facility]04-09-2025 NotePatient Education Urodynamic Testing Urodynamic tests are done to determine how well your lower urinary tract is working. The lower urinary tract includes your bladder and the part of your body that drains urine from the bladder (urethra). When your kidneys filter your blood, urine is stored in your bladder until you feel the urge to urinate. Urination requires coordination between the nerves and muscles of your bladder and urethra. When your lower urinary tract is working well, you should be able to: ??? Start urinating when your bladder is full. ??? Empty your bladder completely. ??? Control the flow of your urine. Why do I need urodynamic testing? You may need urodynamic testing to help find the cause of any of these problems: ??? Leaking urine (incontinence). ??? Problems starting or stopping your urine flow. ??? Frequent or painful urination. ??? Frequent urinary tract infections. ??? Being unable to empty your bladder completely. ??? Having strong urges to pass urine (urgency). ??? Having a weak flow of urine. What are the risks? Generally, these tests are safe. However, some of the tests have risks, including: ??? Discomfort. ??? Frequent urge to urinate. ??? Bleeding. ??? Infection. ??? Allergic reactions to medicines or dyes (contrast material). What happens before the test? Ask your health care provider about changing or stopping your regular medicines. This is especially important if you are taking diabetes medicines or blood thinners. ??? You may be asked to avoid urinating before coming to the test so that you arrive with a full bladder. ??? Tell a health care provider about: ? Any allergies you have. ? All medicines you are taking, including vitamins, herbs, eye drops, creams, and emku-crr-rcdnpdj medicines. ? Whether you are or may be . What happens during the test? You may have various urodynamic tests. The tests may be done separately or may all be done during one visit. You may be given an antibiotic medicine before or after testing to help prevent infection. The types of tests that may be done include: Uroflowmetry This test measures how much urine you pass and how long it takes to pass. ??? You will urinate into a certain type of toilet or device (flowmeter). ??? The device will measure the volume and the time of your urine flow. ??? These measurements will be sent to a computer that creates a graph of your urine flow. Postvoid residual measurement This test measures how much urine is left in your bladder after you urinate. ??? The test may be done with ultrasound. In this method, sound waves and a computer will be used to create an image of your bladder. ??? The test can also be done by inserting a thin, flexible tube (catheter) into your bladder afteryou urinate. The remaining urine will be removed through the catheter so it can be measured. ??? Remaining urine will be measured in milliliters (mL). If you have more than 100 mL left in yourbladder after you urinate, your bladder is not emptying as it should. Cystometric testing This test uses a type of bladder catheter that can measure pressure. ??? You may be given a medicine to numb the area (local anesthetic). ??? The area around the opening of your urethra will be cleaned. ??? A urinary catheter will be passed through your urethra into your bladder and used to empty yourbladder completely. ??? A measuring catheter will be placed, and your bladder will be filled with warm, germ-free (sterile) water. ??? Pressure measurements will be taken: ? As your bladder fills. ? When you feel the need to urinate. ? As your bladder is emptied. ??? You may be asked to cough or bear down to check for leakage. ??? In some cases, your bladder may be filled with a material that shows up on X-rays (contrast material) so that X-ray pictures can be taken during the test. Electromyogram This test measures the electrical activity of the nerves and muscles of your bladder and the opening of your urethra. ??? Sticky patches (electrodes) will be placed near your rectum and urethra to measure electrical activity. ??? The measurements will show how well your nerves are communicating with your muscles. What can I expect after the test? You should be able to go home right away and do your usual activities. ??? You may be told to drink a glass of water every 30 minutes for the first 2 hours after testing. ??? Taking a warm bath or using warm, wet cloths (warm compresses) may relieve any discomfort near your urethra. What do the results mean? Talk with your health care provider about what your results mean. Some common causes for abnormal results from urodynamic tests include: ??? Enlarged prostate in men. ??? Overactive bladder. ??? Urinary tract infection. ??? Nervous system diseases. ??? Spinal cord damage. Questions to ask your health care provider Ask your (more content not included)...[facility]01-06-2025 History of Present illness Narrative* STEVO Al - 07/27/2024 8:00 AM EST Images from the original note were not included. HISTORY OF PRESENT ILLNESS: EST PT Juan Francisco Carmen is an 59 y.o. @ male. (L) KNEE (EST PT) HERE FOR YEARLY CHECK OF (L) TKA 05/16/23 (~14 MONTHS) XRAYS DONE TODAY, 07/27/24 IN [facility] NO BONE SCAN LABS, 02/04/24 @ [facility] (CBC / CRP / SED RATE) S/P PREDNISONE 02/04/24 S/P MDP 12/04/23, 07/01/23 FINSIHED PHYSICAL THERAPY ; POST-OP NOTES SOME SORENESS - LATERAL ASPECT / IT BAND. NOTES GOOD ROM ; DENIES ANY INSTABILITY / WEAKNESS.DENIES ANY SWELLING. NO PAIN MEDS. NOTES RECENT L1 / S4-5 DECOMPRESSION & FUSION 07/10/24 - DR XIE PREVIOUS (R) TKA 06/20/22 & (R) STACY 11/20/22 - DR KELLER (R) KNEE (EST PT) HERE FOR YEARLY CHECK OF (R) TKA 06/20/22 (~2YRS) XRAYS DONE TODAY, 07/27/24 IN [facility] NO BONE SCAN LABS, 02/04/24 @ [...] notes both legs feel weak with less stamina.He recently had back surgery and is still [...] x-ray or possible hip bursa injection if symptomspersist. PROCEDURE The patient underwent bilateral total knee arthroplasties. Questions answered in laymen terms at the bedside. The diagnosis, home exercise plan and any ongoing restrictions/ recommendations reviewed. If unable to be reached in office, I recommend evaluation at nearest Emergency Room if any symptoms worsened or new symptoms develop for requiring urgent evaluation. documented in this encounterReynolds County General Memorial [id number] History of Present illness Narrative* Rosa Kaba LPN - 07/02/2024 4:55 PM EST Went over AVS with pt and took all his belongings with him. Took pt down stairs via wheelchair. No concerns at this time. 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 Assessment: Body [...] activities, Safety education & training, Home exercise program,Equipment evaluation, education, & procurement, Endurance training General [...] rail for support to return home safely. Spotter Goals Time Frame for Spotter Goals : NA due to short ELOS Following session, patient left in safe position with all fall risk precautions in place. Pt in bedside chair following session, all needs and call light in reach. 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 Pt is [...] Decreased functional mobility , Decreased ADL status, Decreasedendurance, Decreased strength, Decreased safe awareness, Decreased high-level [...] by using anti skid strips provided. Pt doeshave grab bar. Pt verbalizes agreement. Education Method: Demonstration;Verbal Barriers to Learning: None Education Outcome: Verbalized understanding;Demonstrated understanding Plan: . See long-term goal time frame for expected duration of plan of care. If no long-term goals established, a short length of stay is anticipated. Goals: Following session, patient left in safe position with all fall risk precautions in place. L * Victor Manuel Blood PA-C - 07/02/2024 6:33 AM EST Department of Orthopedic Surgery Spine Service Attending [...] CATHETER OUTPUT (Mares): [REMOVED] Urinary Catheter 06/30/24 Kppuw-Jskbxtwbqmy-Zoouvd (mL):1300 mL DRAIN/TUBE OUTPUT: Closed/Suction Drain Inferior;Left Back [...] today if patient has BM Victor Manuel Blood PA-C * Bill Davis RN - 07/01/2024 4:34 PM EST Patient able to sit bedside without complication. Mares removed at patient request. Patient tolerated well. Monitor. 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 ABEL Alvarez reports pt on bedrest today with order to Bring HOB up 15 degrees every 2 hours until sitting up. If patient develops a headache then lay flat. Will check back tomorrow. * Bill Davis RN - 07/01/2024 2:55 PM EST Patient states he takes nexium daily. Patient also states he no longer takes cipro eye drops. He also states his ketorolac eye drops are 4 x daily and his prednisolone drops are BID. Discussed with Dr. Bynum. See orders for changes to eye drops and to start protonix. Monitor. * Flavia Bynum MD - 07/01/2024 1:41 PM EST INTERNAL MEDICINE Progress Note 07/01/2024 1:41 PM [...] SCDs. Cont meds PT/OT Flavia Bynum MD, MD * Bridget Quinones PT - 07/01/2024 11:09 AM EST [facility] PHYSICAL THERAPY MISSED TREATMENT NOTE [facility] 7K Date: 07/01/2024 Patient Name: Juan Francisco Carmen : 1965 (59 y.o.) Gender: male REASON FOR MISSED TREATMENT: Hold treatment per nursing request. ABEL Alvarez reports pt on bedrest today with order to Bring HOB up 15 degrees every 2 hours until sitting up. If patient develops a headache then lay flat. Will check back tomorrow. Bridget Quinones, MPT [id number] * Bill Davis RN - 07/01/2024 7:30 AM EST Patient sat up to 15 degrees. Patient tolerated well 0930: Patient up to 30 degrees. Patient tolerated well. 1200: patient sat up to 40 degrees with lunch. Patient tolerating well. Patient states back pain 7/10 but very little neck pain/headache. Monitor. * Victor Manuel Blood PA-C - 07/01/2024 6:48 AM EST Department of Orthopedic Surgery Spine Service Attending [...] URINARY CATHETER OUTPUT (Mares): Urinary Catheter 06/30/24 Knyom-Bjmouelnuuz-Kzztgg (mL): 1500 mL DRAIN/TUBE OUTPUT: Closed/Suction Drain [...] hours. If patient develops a headache then layflat. 3: Pain Control: will increase Flexeril to TID. Decadron ordered. 4: Discharge Planning: pending Victor Manuel Blood PA-C * Sierra Mckeon RN - 07/01/2024 4:48 AM EST Patient called out stating he Is now having extreme pain in is neck and head. He believes it to be spinal headache. Pt. Has been bed rest, flat, all night. Dr. Interiano notified of this and ordered to give Fioricet 1 tablet. * Marcela Burns RN - 06/30/2024 6:51 PM EST Pt admitted to [facility] by bed. Complaints: surgery. IV normal saline infusing into the hand right, condition patent and no redness at a rate of gravitymls/ hour with about 100 mls in the bag still. IV site free of s/s of infection or infiltration. Vital signs obtained. Assessment and data collection initiated. Two nurse skin assessment performed by Marcela ROMAN and Laura KLEIN. Oriented to room. Explained patients right to have family, patient care representative or physician notified of their admission. Patient has Declined for physician to be notified. Patient has Declined for family/patient care representative to be notified. The patient is interested in [facility] meds to [facility] program?: Yes Policies and procedures for explained. All questions answered with no further questions at this time. Fall prevention and safety brochure discussed with patient. Bed alarm on. Call light in reach. * Clari Muñiz RN - 06/30/2024 4:33 PM EST 1635- Pt to pacu. Pt responsive. Appropriate. [...] closed, VSS 1724- report called to nurse Agnes 1730- pt meets criteria for discharge from pacu. VSS 1735-Transport arrives to take pt to 05 in stable condition. [facility] has already sent family to room. * Annita Pastrana RN - 06/30/2024 12:07 PM EST Patient oriented to Same Day department and [...] addressed. Meds to Beds: Patient informed of . [facility] to Beds program during admission. Patient is agreeable to program. Contact information for the pharmacy and the Meds to Beds program: Name: Jimmy Relationship to patient:spouse/significant other Phone number: [phone] * Paulette Shaw RN - 06/30/2024 9:02 AM EST Late Entry: left message for MIKHAIL [facility] Records on 06/29/24 requesting for pre-op clearance. Await call back. * Aristides Fermin - 06/22/2024 9:49 AM EST PAT VISIT Appointment reminder call given Date: 06/26 Arrival time: 13:30 and location; [facility]st [facility] Bring Drivers license and insurance Bring Medications in original bottles Please be ready to give Urine Sample If possible bring caregiver for appointment Take am medications with water unless you are holding any for surgery Appointment may last 2 hours documented in this encounterBon [facility]12[facility] Hospital Discharge instructions* Discharge Instructions* Bill Davis RN - 07/02/2024 11:32 AM [...] All vegetables, especially asparagus, rodriguez sprouts, broccoli, [place] sprouts, cabbage, carrots, cauliflower, celery, corn, greens, [...] hands with soap and water or an alcohol- based hand rub beforeand after visiting you. If you do not [...] taking more than one drug. This includes vzka-vky-ikyeiqs medication and herb or dietary supplements. Plan ahead for refills so you do not run out. Call Your Doctor If Any of the Following Occurs It is important for you to check your recovery once you leave the hospital. That way, you can alertyour doctor to any problems immediately. If any of the following occur, call your doctor: Signs of infection, including fever, chills, redness, swelling, increasing pain, excessive bleeding, or discharge from the incision site The stitches or reji come apart at the incision site Nausea and/or vomiting that you can't control with the medications you were given after surgery, orwhich persist for more than two days after [...] for general information and possible side effects * Pharmacy* Bill Davis RN - 07/02/2024 11:34 AM EST Take medications as directed * Discharge Instr - Activity* Bill Davis RN - 07/02/2024 11:34 AM EST Activity as tolerated * Discharge Instr - Diet* Bill Davis RN - 07/02/2024 11:34 AM EST Good [...] fluid and fiber intake to prevent constipation * Discharge Instr - JHON* Bill Davis RN - 07/02/2024 2:07 PM EST documented in this encounterBon [facility]12-[facility] NotePROCEDURE: XR LUMBAR SPINE 1 VW CLINICAL INFORMATION: surgery COMPARISON: No prior study. TECHNIQUE: Single crossfire lateral view of the lumbar spine was obtained. FINDINGS: Single intraoperative crossfire view of the lumbar spine was performed. Posterior fusion hardware is demonstrated extending from L4-S1. The visualized surgical hardware appears grossly intact. The osseous framework appears grossly unremarkable. Please refer to operative report for further details. [facility][id number] NotePROCEDURE: XR LUMBAR SPINE 1 VW CLINICAL INFORMATION: [...] Signed by: Jordan Tidwell MD 06/30/24 Final resultSBaylor [facility]12-[facility] NotePROCEDURE: XR CHEST (2 VW) CLINICAL INFORMATION: Encounter for other preprocedural examination COMPARISON: No prior study. TECHNIQUE: PA and lateral views of the chest were obtained. [facility] RIS [id number] NotePROCEDURE: XR CHEST (2 VW) CLINICAL INFORMATION: Encounter [...] Signed by: Sly Doran MD 06/26/24 Final resultSaint [facility]12-06-20[facility] History of Present illness Narrative* Guera Butler RN - 06/26/2024 2:00 PM EST Images from the original note were [...] and pillowcases on your bed the night beforesurgery Patient viewed physical therapy video Routine preop [...] razor on the site of your surgery forat least 2 days prior to surgery because [...] 1/3 of the Chlorhexidine soap to the sponge,wash from your neck down. This is very [...] 1/3 of the Chlorhexidine soap to the sponge,wash from your neck down. This is very [...] 1/3 of the Chlorhexidine soap to the sponge,wash from your neck down. This is very important. Do not use the soap on your face or hair and avoid private areas. Rinse your body thoroughly. This is very important. Using a fresh, clean towel, dry your body. Dress warmly with freshly washed clean clothes. Keeping warm before surgery decreases your risk of developing and infection. * Guera Butler RN - 06/26/2024 2:00 PM EST Images from the original note were [...] do you prefer to go? [facility] in [facility] This typically will not start until after your post visit to your Dr. (3-4 weeks after surgery) * What home health agency would you like to use?No preference List of all Home Health Agencies Available given to patient, with website ( per Social Work Team) Please have 2 preferences when you come for surgery- 1st and 2nd choice *Cardiac Rehab plans NA * Guera Butler RN - 06/26/2024 2:00 PM EST Pain note: pt denies pain at visit. Instructed pt on pain management and pain scale. Voiced understanding. * Guera Butler RN - 06/26/2024 2:00 PM EST Preliminary Discharge Planning Questionnaire Date of Surgery [...] do you prefer to go? [facility] in [facility] This typically will not start until after [...] *Cardiac Rehab plans NA [facility] Discharge instructions Patient Education 06/10/2024 09:35:40 Benign Prostatic Hyperplasia Benign Prostatic Hyperplasia Benign prostatic hyperplasia (BPH) is an enlarged prostate gland that is caused by the normal agingprocess. The prostate may get bigger as a man gets older. The condition is not caused by cancer. The prostate is a walnut-sized gland that is involved in the production of semen. It is located in front of the rectum and below the bladder. The bladder stores urine. The urethra carries stored urine ou t of the body. An enlarged prostate can press on the urethra. This can make it harder to pass urine. The buildup of urine in the bladder can cause infection. Back pressure and infection may progress to bladder damage and kidney (renal) failure. What are the causes? This condition is part of the normal aging process. However, not all men develop problems from thiscondition. If the prostate enlarges away from the [...] urethra. Follow these instructions at home: Take zaic-zlb-zxjnjji and prescription medicines only as told by [...] provider. Document Revised: 01/24/2022 Document Reviewed: 01/24/2022 L2C Patient Education 2023 [employer]. 06/10/2024 09:13:58 Benign Prostatic Hyperplasia Benign Prostatic Hyperplasia Benign prostatic hyperplasia (BPH) is an enlarged prostate gland that is caused by the normal agingprocess. The prostate may get bigger as a man gets older. The condition is not caused by cancer. The prostate is a walnut-sized gland that is involved in the production of semen. It is located in front of the rectum and below the bladder. The bladder stores urine. The urethra carries stored urine ou t of the body. An enlarged prostate can press on the urethra. This can make it harder to pass urine. The buildup of urine in the bladder can cause infection. Back pressure and infection may progress to bladder damage and kidney (renal) failure. What are the causes? This condition is part of the normal aging process. However, not all men develop problems from thiscondition. If the prostate enlarges away from the [...] urethra. Follow these instructions at home: Take ilpw-knp-aopfodk and prescription medicines only as told by [...] provider. Document Revised: 01/24/2022 Document Reviewed: 01/24/2022 L2C Patient Education 2023 [employer]. Follow Up Care 04/01/2024 09:44:27 With:Elmer GÓMEZ, DEBRA Rondon, URO Address: When:Within 1 Year(s) Comments:w/HARSHAD [facility] 11-20-2024 NotePatient Education Benign Prostatic Hyperplasia Benign prostatic hyperplasia (BPH) is an enlarged prostate gland that is caused by the normal agingprocess. The prostate may get bigger as a man gets older. The condition is not caused by cancer. The prostate is a walnut-sized gland that is involved in the production of semen. It is located in front of the rectum and below the bladder. The bladder stores urine. The urethra carries stored urine ou t of the body. An enlarged prostate can press on the urethra. This can make it harder to pass urine. The buildup of urine in the bladder can cause infection. Back pressure and infection may progress to bladder damage and kidney (renal) failure. What are the causes? This condition is part of the normal aging process. However, not all men develop problems from thiscondition. If the prostate enlarges away from the [...] this procedure, a tool is inserted through theopening at the tip of the penis (urethra). [...] procedure uses radio frequencies to destroy and removea small amount of prostate tissue. ? Interstitial laser coagulation (ILC). This procedure uses a laser to destroy and remove a small amount of prostate tissue. ? Transurethral electrovaporization (TUVP). This procedure uses electrodes to destroy and remove a small amount of prostate tissue. ? Prostatic urethral lift. This procedure inserts an implant to push the lobes of the prostate awayfrom the urethra. Follow these instructions at home: ??? Take oajv-igs-naxvwcr and prescription medicines only as told by [...] not get better wi (more content not included)...[facility]11-20-2024 History of Present illness Narrative* Jr. Hudson Keller, DO - 06/10/2024 8:15 AM EST Images from the original note [...] FLEX/EXT 12/04/23 EPI MRI, L-SPINE 03/05/24 @ [facility] S/P PREDNISONE TAPER 02/04/24, 12/04/23 S/P MDP 03/11/24, 07/01/23 NO L-SPINE CORTISONE INJ FINISHED PHYSICAL THERAPY ; POST-OP TKA NO PAIN MGMT CONTINUES TO HAVE INTERMITTENT DISCOMFORT IN HIS (L) KNEE / LOWER LEG - LATERAL ASPECT ; WORSE WITHPROLONGED STANDING. NOTES BURNING - DENIES ANY N/T. [...] walk long distance. No prior back disectomy L5- S1. Special Signs Left Left knee [...] xrays. Hudson Keller D.O. documented in this encounterReynolds County General [facility] [id number] History of Present illness Narrative* ANGIE Mccall - 06/01/2024 3:15 PM EST Images from the original note were not included. Assessment/Plan * Ivan Ba DO - 06/01/2024 3:15 PM EST Images from the original note were [...] different lens options were explained including the zqb-no-jprdti fees for any upgrades. Intraocular lens (IOL) [...] Extremities: no pitting edema. documented in this encounterReynolds County General Memorial [id number] History of Present illness Narrative* Ivan Ba DO - 05/19/2024 9:15 AM EDT Images from the original note were not [...] Since onset it is gradually worsening. Affected activitiesinclude driving, watching TV and daily activities. Treatments tried include no treatments and glasses. Response to treatment was mild improvement. Comments pt has been wearing soft contact lens (CL) for 4 years Pt was referred by Dr. Marcum for Cataract Evaluation. No pain, dryness, vision has declined (distance vision) left eye (OS) >right eye (OD), not usingdrops. -Latex -Pm/Df +Taking Flomax Last edited by Ivan Ba DO on 05/19/2024 10:14 AM. Current Outpatient Medications (Ophthalmic Agents) Medication Sig Dispense Refill ketorolac (Acular) 0.5 % ophthalmic solution Administer 1 drop into affected eye(s) in the morning and 1 drop before bedtime. 5 mL 1 ofloxacin (Ocuflox) 0.3 % ophthalmic solution Administer 1 drop into affected eye(s) 5 (five) timesa day for 1 day Starting 1 day [...] @ 9:52 AM Additional Tests Keratometry K1 Mena K2 Mena Right 43.75 058 45.00 148 Left 42.75 [...] Normal Refraction Manifest Refraction (Auto) Sphere Cylinder Mena Right -3.50 -0.50 058 Left -4.50 -1.25 [...] different lens options were explained including the wry-ay-itsolp fees for any upgrades. Intraocular lens (IOL) [...] Surgery for OS will take place - 06/08and OD - 06/22. documented in this encounterReynolds County General Memorial [id number] History of Present illness Narrative* Jr. Hudson Keller DO - 04/15/2024 8:15 AM EDT Images from the original note were not [...] @ [facility] S/P PREDNISONE TAPER 02/04/24, 12/04/23 S/P MDP 03/11/24, 07/01/23 NO L-SPINE CORTISONE INJ FINISHED PHYSICAL THERAPY ; POST-OP TKA NO PAIN MGMT NOTES TEMP RELIEF FROM MDP ; CONTINUES TO HAVE INTERMITTENT DISCOMFORT IN HIS (L) KNEE / LOWER LEG - LATERAL ASPECT ; WORSE WITH PROLONGED STANDING. NOTES BURNING - DENIES ANY N/T. SOME MINIMAL LOWERBACK PAIN. NOTES GOOD ROM ; DENIES ANY [...] Procedures Ambulatory referral to Neurosurgery Dr. Walters @[facility] ; Please call patient to schedule, thank you. Evaluate and treat L-Spine Standing Status: Future Standing Expiration Date: 10/13/2024 Referral Priority: Routine Referral Type: Consultation Referral Reason: Specialty Services Required Requested Specialty: Neurosurgery Number of Visits Requested: 1 ASSESSMENT: ICD-10-CM 1. Lumbar back pain with radiculopathy affecting left lower extremity M54.16 Ambulatory referral toNeurosurgery PLAN: We have answered all the patients [...] I am acting as scribe for Dr. Keller/[facility], PLAN: We have reviewed prior L-Spine xrays / MRI results. Patient notes that most of his symptoms are noted with prolong standing. After examination today we are recommending a referral to Dr. Walters at [facility] with patients verbal agreeance. We have discussed his HEP and restrictions and will see him back in 8 weeks to discuss consult, pending examination / consult we may recommend a bone scan tor/o prosthetic loosening to his left knee. Hudson Keller D.O. documented in this encounterReynolds County General Memorial [id number] Hospital Discharge instructions Patient Education 04/01/2024 09:45:05 Benign Prostatic Hyperplasia Benign Prostatic Hyperplasia Benign prostatic hyperplasia (BPH) is an enlarged prostate gland that is caused by the normal agingprocess. The prostate may get bigger as a man gets older. The condition is not caused by cancer. The prostate is a walnut-sized gland that is involved in the production of semen. It is located in front of the rectum and below the bladder. The bladder stores urine. The urethra carries stored urine ou t of the body. An enlarged prostate can press on the urethra. This can make it harder to pass urine. The buildup of urine in the bladder can cause infection. Back pressure and infection may progress to bladder damage and kidney (renal) failure. What are the causes? This condition is part of the normal aging process. However, not all men develop problems from thiscondition. If the prostate enlarges away from the [...] urethra. Follow these instructions at home: Take ppdl-elx-ytlvvpi and prescription medicines only as told by [...] provider. Document Revised: 01/24/2022 Document Reviewed: 01/24/2022 L2C Patient Education 2023 [employer]. Follow Up Care 02/10/2024 10:22:17 With:Elmre GÓMEZ, DEBRA Rondon, URO Address: [address] [place] [phone] When: Unknown Comments:2 mos w/ [facility] 09-11-2024 NotePatient Education Urology Benign Prostatic Hyperplasia Benign prostatic hyperplasia (BPH) is an enlarged prostate gland that is caused by the normal agingprocess. The prostate may get bigger as a man gets older. The condition is not caused by cancer. The prostate is a walnut-sized gland that is involved in the production of semen. It is located in front of the rectum and below the bladder. The bladder stores urine. The urethra carries stored urine ou t of the body. An enlarged prostate can press on the urethra. This can make it harder to pass urine. The buildup of urine in the bladder can cause infection. Back pressure and infection may progress to bladder damage and kidney (renal) failure. What are the causes? This condition is part of the normal aging process. However, not all men develop problems from thiscondition. If the prostate enlarges away from the [...] urine that may remain in your bladder afteryou finish urinating. ? A digital rectal exam. [...] this procedure, a tool is inserted through theopening at the tip of the penis (urethra). [...] procedure uses radio frequencies to destroy and removea small amount of prostate tissue. ? Interstitial laser coagulation (ILC). This procedure uses a laser to destroy and remove a small amount of prostate tissue. ? Transurethral electrovaporization (TUVP). This procedure uses electrodes to destroy and remove a small amount of prostate tissue. ? Prostatic urethral lift. This procedure inserts an implant to push the lobes of the prostate awayfrom the urethra. Follow these instructions at home: ? Take tgwx-lpo-wooeozd and prescription medicines only as told by [...] You develop side effec (more content not included)...[facility]08-21-2024 History of Present illness Narrative* Jr. Hudson Keller, DO - 03/11/2024 8:00 AM EDT Images from the original note were not [...] LOWER LEG - LATERAL ASPECT ; WORSE WITHPROLONGED STANDING. NOTES BURNING - DENIES ANY N/T . SOME MINIMAL LOWER BACK PAIN. NOTES GOOD ROM ;DENIES ANY WEAKNESS. DENIES ANY CURRENT SWELLING. CONTINUES [...] management. Hudson Keller D.O. documented in this encounterReynolds County General Memorial [id number] Hospital Discharge instructions Patient Education 02/10/2024 10:18:20 Lue - Urolift Post-Op Instructions (CUSTOM) [facility] [place], [place] Post-Operative Instructions for UroLift After your [...] the amount of bleeding. The bleeding may besporadic (off and on) over the next 2-3 [...] harmful to you or your partner. This w ill resolve with time. Frequency/urgency/burning with urination is [...] your Mares catheter. This is a thin, flexibletube that allows urine to drain out of [...] is done using a syringe and the balloonport. This is the opening in the catheter [...] syringe. Depending on how large the balloon is,you may need to repeat this process several [...] Up Care 01/17/2024 10:32:06 With:Maura Payne Address: [address] [place] [address]- [phone] Business (1) [address] [phone] Business (1) When: Unknown Comments:Office to schedule follow up in 1 month with [facility]05-14-2024 Hospital Discharge instructions Patient Education 12/03/2023 15:53:00 [...] including vitamins, herbs, eye drops, creams, and nvll-ora-pyqokcf medicines. Any problems you or family members [...] provider tells you to take them. Taking rsmp-htu-ivovllc medicines, vitamins, herbs, and supplements. Tests You [...] Follow these instructions at home: Medicines Take rgfe-hzd-ebaycew and prescription medicines only as told by your health care provider. If you were prescribed an antibiotic medicine, take it as told by your health care provider. Do notstop taking the antibiotic even if you start [...] blood in your urine increases, call your healthcare provider. Follow instructions from your health care provider about eating or drinking restrictions. If a tissue sample was removed for testing (biopsy) during your procedure, it is up to you to get your test results. Ask your health care provider, or the department that is doing the test, when yourresults will be ready. Drink enough fluid to [...] blood in your urine increases, call your healthcare provider. If you were prescribed an antibiotic medicine, take it as told by your health care provider. Do notstop taking the antibiotic even if you start to feel better. This information is not intended to replace advice given to you by your health care provider. Make sure you discuss any questions you have with your health care provider. Document Revised: 03/21/2022 Document Reviewed: 02/17/2021 L2C Patient Education 2022 [employer]. 12/03/2023 15:48:35 Benign Prostatic Hyperplasia Benign Prostatic Hyperplasia Benign prostatic hyperplasia (BPH) is an enlarged prostate gland that is caused by the normal agingprocess. The prostate may get bigger as a man gets older. The condition is not caused by cancer. The prostate is a walnut-sized gland that is involved in the production of semen. It is located in front of the rectum and below the bladder. The bladder stores urine. The urethra carries stored urine ou t of the body. An enlarged prostate can press on the urethra. This can make it harder to pass urine. The buildup of urine in the bladder can cause infection. Back pressure and infection may progress to bladder damage and kidney (renal) failure. What are the causes? This condition is part of the normal aging process. However, not all men develop problems from thiscondition. If the prostate enlarges away from the [...] urethra. Follow these instructions at home: Take elch-axh-itoqutu and prescription medicines only as told by [...] provider. Document Revised: 01/24/2022 Document Reviewed: 01/24/2022 L2C Patient Education 2022 [employer]. Follow Up Care 11/25/2023 13:52:08 With:Elmer GÓMEZ, Maura Torres, URL, URO Address: When: Unknown [facility] evaluation + Plan note No data available for this section [facility] evaluation + Plan note Future Appointments Appointment Date:04/01/2024 09:00:00 AM Scheduled Provider:Maura Payne MD Location[facility] Future Appointments Appointment Date:06/10/2024 08:45:00 AM Scheduled Provider:Maura Payne MD Location:[facility] Appointment Type:URO Office Visit [facility] evaluation + Plan note Future Appointments Appointment Date:06/16/2025 08:45:00 AM Scheduled Provider:Maura Payne MD Location:[facility] Appointment Type:URO Office Visit [facility] evaluation + Plan note Future Appointments Appointment Date:03/03/2025 08:00:00 AM Scheduled Provider:Leelee Willson PA-C Location:[facility] Appointment Type:URO Office Visit Appointment Date:06/16/2025 08:45:00 AM Scheduled Provider:Maura Payne MD Location:[facility] Appointment Type:URO Office Visit [facility] evaluation noteNo assessment information available [facility] Work Phone: Evaluation note* Diagnosis Age-related nuclear cataract of both eyes- Primary [facility]* Diagnosis Age-related nuclear cataract of both eyes- Primary [facility]* Diagnosis Lumbar back pain with radiculopathy affecting left lower extremity- Primary Acute pain of left knee History of left knee replacement [facility]* Diagnosis Pre-op evaluation Preoperative examination, unspecified Degeneration of intervertebral disc of lumbar region, unspecified whether pain present [facility] Diagnosis Lumbar stenosis with neurogenic claudication- Primary Spinal stenosis, lumbar region, with neurogenic claudication Lumbar stenosis with neurogenic claudication Spinal stenosis, lumbar region, with neurogenic claudication documented [facility] this encounter [facility]* Diagnosis Lumbar back pain with radiculopathy affecting left lower extremity- Primary documented [facility]* Diagnosis Lumbar back pain with radiculopathy affecting left lower extremity- Primary documented in this encounter [facility]* Diagnosis Acute pain of right knee- Primary Acute pain of left knee History of bilateral knee replacement documented in this encounter [facility]* Diagnosis Mixed conductive and sensorineural hearing loss of left ear with restricted hearing of right ear- Primary Pulsatile tinnitus of left ear documented in this encounter [facility]* Diagnosis Conductive hearing loss of left ear with unrestricted hearing of right ear- Primary Referred otalgia of left ear documented [facility] encounter [facility] No data available for this section [facility] Progress note No data available for this section [facility] reason for referral (narrative)* Consultation (Routine) - AuthorizedSpecialtyDiagnoses / ProceduresReferred By ContactReferred To ContactNeurosurgery Diagnoses Lumbar back pain with radiculopathy affecting left lower extremity Jr. Hudson Keller DO [address] [place] [id number] Cece Xie MD [facility] [place] [address] Referral IDStatusReasonStart DateExpiration DateVisits RequestedVisits [id number] Specialty Services Required / [facility] Summary Purpose Family History No Family History Records FoundNo Family History Records Found No data available for this section No data available for this section No data available for this section No data available for this section No data available for this section No Family History Records Found No data available for this section No Family History Records FoundNo Family History Records FoundNo Family History Records FoundNo Family History Records FoundNo Family History Records Found Advance Directives Date ActivatedDate KijmaiinhgcKpfuulfx41/10/2024 11:29 AMDate ActivatedDate TdcxhslbwnyVjzlyzdz22/10/2024 11:29 AMNameRelationshipHealthcare Agent RelationshipCommunicationTomi SachsSpousePrimary Decision Maker* Additional Source Comments Care Teams (unrecognized sec tion and content) Team Status: Inactive Member Role Status Dates Elmo Vela DO Attending Provider Active Team MemberRelationshipSpecialtyStart DateEnd Date Colt Michelle MD [address] [place] [address] PCP - GeneralFamily Medicine11/30/22Team MemberRelationshipSpecialtyStart DateEnd Date Colt Michelle MD [address] [place] [address] PCP - GeneralFamily Medicine11/30/22Team MemberRelationshipSpecialtyStart DateEnd Date Colt Michelle MD [address] [place] [address] PCP - GeneralFami Medicine11/30/22Team MemberRelationshipSpecialtyStart DateEnd Date Colt Michelle MD [address] [place] [address] PCP - GeneralFamily Medicine11/30/22Team MemberRelationshipSpecialtyStart DateEnd Date Colt Michelle MD [address] [place] [facility] [address] PCP - GeneralFamily Medicine11/30/22Team MemberRelationshipSpecialtyStart DateEnd Date Colt Michelle MD [address] [place] [facility] [address] PCP - GeneralFamily Medicine11/30/22Team MemberRelationshipSpecialtyStart DateEnd Date Alejandro Gimenez MD [address] [place] [address] PCP - GeneralFamily Hlufrldb60/6/24Team MemberRelationshipSpecialtyStart DateEnd Date Alejandro Gimenez MD [address] [place] [address] PCP - GeneralFamily Xhhyizay09/6/24Team MemberRelationshipSpecialtyStart DateEnd Date Alejandro Gimenez MD [address] [place] [address] PCP - GeneralFamily Lofoivzl55/6/24Team MemberRelationshipSpecialtyStart DateEnd Date Alejandro Gimenez MD [address] [place] [address] PCP - GeneralFamily Ulzgmkri50/6/24Team MemberRelationshipSpecialtyStart DateEnd Date Colt Michelle MD [address] [place] [facility] [place] [address] PCP - GeneralFamily Medicine11/30/22Team MemberRelationshipSpecialtyStart DateEnd Date Colt Michelle MD [address] [place] [facility] [address] PCP - GeneralFamily Medicine11/30/22Team MemberRelationshipSpecialtyStart DateEnd Date Colt Michelle MD [address] [place] [address] PCP - GeneralFamily Medicine11/30/22Team MemberRelationshipSpecialtyStart BrentEnd Colt Almanza MD [address] [place] [facility] [place] [address] PCP - GeneralFamily Medicine11/30/22Team MemberRelationshipSpecialtyStart DateEnd Date Colt Michelle MD [address] [place] [address] PCP - GeneralFamily Medicine11/30/22Team MemberRelationshipSpecialtyStart DateEnd Date Colt Michelle MD PCP - GeneralFamily Medicine11/30/22Team MemberRelationshipSpecialtyStart BrentEnd Colt Almanza MD PCP - GeneralFamily Medicine11/30/22Team MemberRelationshipSpecialtyStart DateEnd Colt Amlanza MD [facility] [place] [address] PCP - GeneralFamily Medicine02/22/25Team MemberRelationshipSpecialtyStart DateEnd Colt Almanza MD [address] [place] [address] PCP - GeneralFamily Medicine02/22/25Team MemberRelationshipSpecialtyStart DateEnd Date Colt Michelle MD [address] [place] [address] PCP - GeneralFamily Medicine02/22/25 Goals (unrecognized section and content) Goals may [...] section and content) DATE CREATED AUTHOR 04/01/2022 [facility] DATE CREATED AUTHOR AUTHOR'S ORGANIZ ATION 04/23/2022 [facility] DATE CREATED AUTHOR AUTHOR'S ORGANIZ ATION 07/14/2024 [facility] DATE CREATED AUTHOR AUTHOR'S ORGANIZ ATION 02/13/2025 [facility] [facility] DATE CREATED AUTHOR AUTHOR'S ORGANIZ ATION 02/18/2025 [facility] DATE CREATED AUTHOR AUTHOR'S ORGANIZ ATION 02/22/2025 [facility] DATE CREATED AUTHOR AUTHOR'S ORGANIZ ATION 02/25/2025 [facility] EPIC Reason for Visit (unrecogniz ed section and content) ReasonCommentsCataractReasonCommentsPainSpecialtyDiagnoses / ProceduresReferred By ContactReferred To Contact Diagnoses Degeneration of intervertebral disc of lumbar region, unspecified whether pain present Degeneration of intervertebral disc of lumbar region, unspecified whether pain present [M51.369] Procedures MO ARTHRODESIS COMBINED TQ 1NTRSPC LUMBAR MO ARTHRODESIS PST/PSTLAT TQ 1NTRSPC EA ADDL NTRSPC MO PARRISH FACETEC/FORAMOT DRG ARTHRD LUMBAR 1 VRT SGM MO PARRISH FACETEC/FORAMOT DRG ARTHRD LMBR EA ADDL SGM MO PARRISH FACETECTOMY & FORAMOTOMY 1 VRT SGM LUMBAR MO POSTERIOR SEGMENTAL INSTRUMENTATION 3-6 VRT SEG MO INSJ BIOMCHN DEV INTERVERTEBRAL DSC SPC W/ARTHRD MO AUTOGRAFT SPINE SURGERY LOCAL FROM SAME INCISION L4-S1 Decompression and Fusion, L4-L5 TLIF L4-S1 Decompression and Fusion, L4-L5 TLIF L4-S1 Decompression and Fusion, L4-L5 TLIF L4-S1 Decompression and Fusion, L4-L5 TLIF L4-S1 Decompression and Fusion, L4-L5 TLIF L4-S1 Decompression and Fusion, L4-L5 TLIF L4-S1 Decompression and Fusion, L4-L5 TLIF L4-S1 Decompression and Fusion, L4-L5 TLIF Cece Xie MD [address] [place] [address] [place] [address] [facility] [address] [place] [address] Referral IDStatusReasonStart DateExpiration DateVisits RequestedVisits [id number]wu MediaReasonOnset Date CommentsCT and rx to Dr Michelle02/05/2025ReasonCommentsEar ProblemFollow up [facility] 02/12/25 Ordered Prescriptions (unrec ognized section and content) PrescriptionSigDispensedRefillsStart DateEnd Date cyclobenzaprine (FLEXERIL) 10 MG tablet Take 1 tablet by mouth 3 times daily as needed for Muscle spasms 30 tablet / oxyCODONE-acetaminophen (PERCOCET) 5-325 MG per tablet Indications:Lumbar stenosis with neurogenic claudicationTake 1 tablet by mouth every 6 hours as needed for Pain for up to 7 days. Intended supply: 7 days. Take lowest dose possible to manage pain Max Daily Amount: 4 tablets 28 tablet / Scheduled Active and Recently Administ ered Medications (unrecognized section and content) Medication Order/ acetaminophen (TYLENOL) tablet 650 mg 650 mg, Oral, EVERY 6 HOURS, First dose on Sat06/30/24 at 1815, Until Discontinued, Maximum dose of acetaminophen is 4000 mg from all sources in 24 hours., Post-op * 1857 (Given - Provider: Marcela Burns RN) * 1247 (Not Given - Provider: Sierra Mckeon RN - Reason: Patient/family refused) * 0521 (Given - Provider: Sierra Mckeon RN) * 1154 (Given - Provider: Bill Davis RN) * 1619 (Given - Provider: Bill Davis RN) * 2309 (Not Given - Provider: Charmaine Woodson RN - Reason: Patient/family refused) * 0512 (Given - Provider: Charmaine Woodson RN) * 1205 (Given - Provider: Bill Davis RN) * 1815 (Due) allopurinol (ZYLOPRIM) tablet 100 mg 100 mg, Oral, DAILY, First dose on Sat06/30/24 at 1815, Until Discontinued * 2006 (Given - Provider: Sierra Mckeon RN) * 0851 (Given - Provider: Bill Davis RN) * 0756 (Given - Provider: Bill Davis, ABEL) amLODIPine (NORVASC) tablet 5 mg 5 mg, Oral, DAILY, First dose on Sat07/01/24 at 0900, Until Discontinued * 0851 (Given - Provider: Bill Davis RN) * 0756 (Given - Provider: Bill Davis, ABEL) bisacodyl (DULCOLAX) EC tablet 5 mg 5 mg, Oral, DAILY, First dose on Sat06/30/24 at 1815, Until Discontinued, Do not crush or break., Post-op * 2006 (Given - Provider: Sierra Mckeon RN) * 0851 (Given - Provider: Bill Davis RN) * 0756 (Given - Provider: Bill Davis, RN) indditznod-gcojlnsjgohre-mflgimti (FIORICET, ESGIC) per tablet 1 tablet (COMPLETED) 1 tablet, Oral, ONCE, 1 dose, On Sat07/01/24 at 0445, Maximum dose of acetaminophen is 4000 mg from all sources in 24 hours. * 0433 (Given - Provider: Sierra Mckeon RN) ceFAZolin (ANCEF) 2,000 mg in sterile water 20 mL IV syringe (COMPLETED) 2,000 mg, IntraVENous, [employer] DEVELOPER TO O.R., 1 dose, On Sat06/30/24 at 1345, Antimicrobial Indications:Surgical Prophylaxis, Administer within 1 hour prior to incision. Recommend to repeat in 3-4 hours after initial dose if still intra- op. Administer over 5 mins. Reconstitute 2 g vial with 20 mL Sterile Water. Withdraw entire contents., Pre-op (day of surgery) * 1448 (Canceled Entry - Provider: ANGELLA Plascencia CRNA) * 1459 (New Bag - Provider: ANGELLA Plascencia CRNA) ceFAZolin (ANCEF) 2,000 mg in sterile water 20 mL IV syringe (COMPLETED) 2,000 mg, IntraVENous, EVERY 8 HOURS, 2 doses, First dose on Sat06/30/24 at 2300, Last dose on Sat07/01/24 at 0700, Antimicrobial Indications: Surgical Prophylaxis, Administer over 5 mins. Reconstitute 2 g vial with 20 mL Sterile Water. Withdraw entire contents., Post-op * 2349 (Given - Provider: Sierra Mckeon RN) * 0851 (Given - Provider: Bill Davis RN) ciprofloxacin (CILOXAN) 0.3 % ophthalmic solution 1 drop (CANCELED) 1 drop, Right Eye, 3 times daily, First dose on Sat06/30/24 at 2100, Until Discontinued * 2011 (Given - Provider: Sierra Mckeon RN) * 0852 (Not Given - Provider: Bill Davis, ABEL - Reason: Patient/family refused) dexAMETHasone (PF) (DECADRON) injection 10 mg (COMPLETED) 10 mg, IntraVENous, EVERY 8 HOURS, First dose on Sat07/01/24 at 0715, For 3 doses * 0856 (Given - Provider: Bill Davis, ABEL) * 1406 (Given - Provider: Bill Davis, RN) * 2309 (Given - Provider: Charmaine Woodson RN) ketorolac (ACULAR) 0.5 % ophthalmic solution 1 drop (CANCELED) 1 drop, Right Eye, 3 times daily, First dose on Sat06/30/24 at 2100, Until Discontinued * 2011 (Given - Provider: Sierra Mckeon RN) * 0852 (Given - Provider: Bill Davis RN) * 1406 (Given - Provider: Bill Davis, ABEL) ketorolac (ACULAR) 0.5 % ophthalmic solution 1 drop 1 drop, Right Eye, 4 TIMES DAILY, First dose (after last modification) on Sat07/01/24 at 2100, Until Discontinued * 2050 (Given - Provider: Charmaine Woodson, ABEL) * 0757 (Given - Provider: Bill Davis, RN) * 1206 (Given - Provider: Bill Davis, RN) * 1700 (Due) * 2099 (Due) lisinopril (PRINIVIL;ZESTRIL) tablet 20 mg 20 mg, Oral, DAILY, First dose on Sat06/30/24 at 1815, Until Discontinued * 2006 (Given - Provider: Sierra Mckeon RN) * 0851 (Given - Provider: Bill Davis, ABEL) * 075 (Given - Provider: Bill Davis, RN) ondansetron (ZOFRAN) injection 4 mg (COMPLETED) 4 mg, IntraVENous, ONCE, 1 dose, On Sat06/30/24 at 1715, PACU only * 1649 (Given - Provider: Clari Muñiz, ABEL) pantoprazole (PROTONIX) tablet 40 mg 40 mg, Oral, DAILY BEFORE BREAKFAST, First dose on Sat07/01/24 at 0930, Until Discontinued, Substituted for Esomeprazole (NEXIUM). * 0920 (Given - Provider: Bill Davis RN) * 0512 (Given - Provider: Charmaine Woodson, ABEL) polyethylene glycol (GLYCOLAX) packet 17 g 17 g, Oral, DAILY, First dose on Sat06/30/24 at 1815, Until Discontinued, Stir and dissolve one packet of powder (17 g) in any 4 to 8 ounces of beverage (cold, hot or room temperature) then drink, Post-op * 2012 (Given - Provider: Sierra Mckeon RN) * 0851 (Given - Provider: Bill Davis RN) * 075 (Given - Provider: Bill Davis, RN) pravastatin (PRAVACHOL) tablet 40 mg 40 mg, Oral, DAILY, First dose on Sat06/30/24 at 1815, Until Discontinued * 2006 (Given - Provider: Sierra Mckeon RN) * 0851 (Given - Provider: Bill Davis, ABEL) * 0756 (Given - Provider: Bill Davis, RN) prednisoLONE acetate (PRED FORTE) 1 % ophthalmic suspension 1 drop (CANCELED) 1 drop, Right Eye, 3 TIMES DAILY, First dose on Sat06/30/24 at 2100, Until Discontinued * 2011 (Given - Provider: Sierra Mckeon RN) * 0852 (Given - Provider: Bill Davis, ABEL) * 1406 (Not Given - Provider: Bill Davis RN - Reason: Patient/family refused) prednisoLONE acetate (PRED FORTE) 1 % ophthalmic suspension 1 drop 1 drop, Right Eye, 2 times daily, First dose (after last modification) on Sat07/01/24 at 2100, Until Discontinued * 2050 (Given - Provider: Charmaine Woodson RN) * 075 (Given - Provider: Bill Davis RN) * 2099 (Due) sennosides-docusate sodium (SENOKOT-S) 8.6-50 MG tablet 1 tablet 1 tablet, Oral, 2 TIMES DAILY, First dose on Sat06/30/24 at 2100, Until Discontinued, Post-op * 2006 (Given - Provider: Sierra Mckeon RN) * 0851 (Given - Provider: Bill Davis RN) * 2050 (Given - Provider: Charmaine Woodson RN) * 075 (Given - Provider: Bill Davis RN) * 2099 (Due) sodium chloride flush 0.9 % injection [...] non-viscous solutions use: Peripheral IV = 5 mLMidline or Central Line = 10 mL/lumen For viscous solutions (i.e. blood components, parenteral nutrition, contrast media, or after obtaining blood sample) use: Peripheral IV = 10 mL Midline or Central Line = 20 mL/lumen, Post-op * 2012 (Not Given - Provider: Sierra Mckeon RN - Reason: IV Fluid Infusing) * 0851 (Given - Provider: Bill Davis RN) * 2050 (Given - Provider: Charmaine Woodson RN) * 0757 (Given - Provider: Bill Davis, ABEL) * 2099 (Due) Medication Order/11/ 0.9 % sodium chloride infusion IntraVENous, at 125 mL/hr, CONTINUOUS, Starting on Sat06/30/24 at 1815, Post-op * 1832 (New Bag - Provider: Marcela Burns RN) * 0700 (Stopped - Provider: Bill Davis RN - Comment: not running this shift.) Medication Order 0.9 % sodium chloride infusion (CANCELED) IntraVENous, at 5-250 mL/hr, PRN, if patient receiving piggyback infusions and maintenance fluids are not ordered, Starting on Sat06/30/24 at 1129, For piggyback infusion, administer at same rate aspiggyback for a total of 25 mL. Enter 25 mL into dose field and piggyback rate into rate field of order. If piggyback is infusing at a rate less than 100 mL/hr, enter 25 mL into dose field and 100 mL/hr into rate field of order., Pre-op (day of surgery) * 1222 (New Bag - Provider: Annita Pastrana RN) * 1432 (Paused - Provider: Marci Ulrich APRN - SUMATRA OPENER - Comment: Switch to gravity) * 1433 (Restarted - Provider: Marci Ulrich APRN - SUMATRA OPENER) * 1620 (New Bag - Provider: Stacey Loving APRN - JOVON) * 1635 (Anesthesia Volume Adjustment - Provider: Stacey Loving APRN - SUMATRA OPENER) 0.9 % sodium chloride infusion IntraVENous, at 5-250 mL/hr, PRN, if patient receiving piggyback infusions and maintenance fluids are not ordered, Starting on Sat06/30/24 at 1753, For piggyback infusion, administer at same rate aspiggyback for a total of 25 mL. Enter [...] on Sat06/30/24 at 1753, Until Discontinued, Constipation, Firstline therapy for constipation, Post-op * 1337 (Given - Provider: Bill Davis, ABEL) cyclobenzaprine (FLEXERIL) tablet 10 mg (CANCELED) 10 mg, Oral, EVERY 12 HOURS PRN, Starting on Sat06/30/24 at 1753, Until Sat07/01/24 at 0646, Muscle spasms, Post-op * 1923 (Given - Provider: Marcela Burns RN) cyclobenzaprine (FLEXERIL) tablet 10 mg 10 mg, Oral, 3 TIMES DAILY PRN, Starting on Sat07/01/24 at 0849, Until Discontinued, Muscle spasms, Post-op * 2142 (Given - Provider: Charmaine Woodson RN) * 1205 (Given - Provider: Bill Davis RN) docusate sodium (ENEMEEZ) enema 283 mg 283 mg (1 enema), Rectal, DAILY PRN, Starting on Disha 07/02/24 at 1433, Until Discontinued, Constipation * 1451 (Given - Provider: Rosa Kaba LPN) fentaNYL (SUBLIMAZE) injection 50 mcg (COMPLETED) 50 mcg, IntraVENous, EVERY 5 MIN PRN, 2 doses, Starting on Sat06/30/24 at 1633, Until Sat06/30/24at 1705, Pain Severe (7-10), For Phase I. If Phase II oral narcotics have been administered in the last 60 minutes, do not administer IV narcotics unless specifically approved by provider., PACU only * 1700 (Given - Provider: Clari Muñiz RN) * 1705 (Given - Provider: Clari Muñiz RN) HYDROmorphone (DILAUDID) injection 0.25 mg (COMPLETED) 0.25 mg, IntraVENous, EVERY 5 MIN PRN, 2 doses, Starting on Sat06/30/24 at 1633, Until Sat06/30/24 at 1647, Pain Moderate (4-6), For Phase I. If Phase II oral narcotics have been administered in the last 60 minutes, do not administer IV narcotics unless specifically approved by provider., PACU only * 1642 (Given - Provider: Clari Muñiz RN) * 1647 (Given - Provider: Clari Muñiz RN) HYDROmorphone [...] each other unless specifically ordered., PACU only * 1651 (Given - Provider: Clari Muñiz, ABEL) * 1710 (Given - Provider: Clari Muñiz, RN) morphine [...] of each other unless specifically ordered., Post-op * 1809 (See Alternative - Provider: Marcela Burns RN) * 2129 (See Alternative - Provider: Sierra Mckeon, ABEL) * 2347 (See Alternative - Provider: Sierra Mckeon, ABEL) * 0211 (See Alternative - Provider: Sierra Mckeon, ABEL) * 0418 (See Alternative - Provider: Sierra Mckeon, ABEL) * 0630 (See Alternative - Provider: Sierra Mckeon, RN) * 0912 (Given - Provider: Bill Davis RN) morphine (PF) injection 4 mg(Linked Group 1) 4 mg, IntraVENous, EVERY 2 HOURS PRN, Starting on Sat06/30/24 at 1753, Until Discontinued, Pain Severe (7-10), If oral and IV narcotics ordered, use oral first and only use IV if oral is ineffectiveor cannot take oral. Do Not give oral and IV within 1 hour of each other unless specifically ordered., Post-op * 1810 (Given - Provider: Marcela Burns RN) * 2130 (Given - Provider: Sierra Mckeon, ABEL) * 2347 (Given - Provider: Sierra Mckeon, ABEL) * 0211 (Given - Provider: Sierra Mckeon RN) * 0418 (Given - Provider: Sierra Mckeon RN) * 0630 (Given - Provider: Sierra Mckeon RN) * 0912 (See Alternative - Provider: Bill Davis, ABEL) ondansetron (ZOFRAN) injection 4 mg(Linked Group 2) 4 mg, IntraVENous, EVERY 6 HOURS PRN, Starting on Sat06/30/24 at 1753, Until Discontinued, Nausea,Vomiting, Administer if oral route cannot be used., Post-op ondansetron (ZOFRAN-ODT) disintegrating tablet 4 mg(Linked Group 2) 4 mg, Oral, EVERY 8 HOURS PRN, Starting on Sat06/30/24 at 1753, Until Discontinued, Nausea, Vomiting, Post-op oxyCODONE (ROXICODONE) immediate release tablet 10 mg(Linked Group 3) 10 mg, Oral, EVERY 4 HOURS PRN, Starting on Sat06/30/24 at 1753, Until Discontinued, Pain Severe (7-10), Post-op * 2006 (Given - Provider: Sierra Mckeon RN) * 0101 (Given - Provider: Sierra Mckeon RN) * 0521 (Given - Provider: Sierra Mckeon RN) * 1154 (Given - Provider: Bill Davis, ABEL) * 1606 (Given - Provider: Bill Davis, ABEL) * 2143 (Given - Provider: Charmaine Woodson, ABEL) * 0756 (Given - Provider: Bill Davis, ABEL) * 1643 (Given - Provider: Rosa Kaba LPN) oxyCODONE (ROXICODONE) immediate release tablet 5 mg(Linked Group 3) 5 mg, Oral, EVERY 4 HOURS PRN, Starting on Sat06/30/24 at 1753, Until Discontinued, Pain Moderate (4-6), Post-op * 2006 (See Alternative - Provider: Sierra Mckeon RN) * 0101 (See Alternative - Provider: Sierra Mckeon RN) * 0521 (See Alternative - Provider: Sierra Mckeon RN) * 1154 (See Alternative - Provider: Bill Davis, ABEL) * 1606 (See Alternative - Provider: Bill Davis, ABEL) * 2143 (See Alternative - Provider: Charmaine Woodson RN) * 0756 (See Alternative - Provider: Bill Davis RN) * 1643 (See Alternative - Provider: Rosa Kaba LPN) sodium chloride flush 0.9 % [...] or Central Line = 20 mL/lumen, Post-op * 1406 (Given - Provider: Bill Davis RN) [...] at 1611, Until Sat06/30/24 at 1634, Intra-op * 1611 (Given - Provider: Victor Manuel Blood PA-C) Order Group 1: morphine (PF) injection 2 [...] and only use IV if oral is ineffectiveor cannot take oral. Do Not give oral [...] Starting on Sat06/30/24 at 1753, Until Discontinued, Nausea,Vomiting, Administer if oral route cannot be used., Post-op Group 3: oxyCODONE (ROXICODONE) immediate release tablet [...] BE BASED ON THE PRIMARY CLINICAL RECORDS. [email or web address] [facility]. provides no warranty or guarantee of the accuracy or completeness of information in this document.
--- OUTSIDE RECORDS SUMMARY | 2025-06-14 07:19 | XMS_ITS | Clinical Summary ---
Author Organization [facility] Healthcare Address [address] [place] [address] Care Team Providers Care Pallet Assembler Name Role Phone Lona Germain MD Primary Care Provider [phone] Allergies No known active allergies Medications MedicationSigDispense QuantityRefillsLast FilledStart DateEnd DateStatus allopurinol (Zyloprim) 100 MG tablet Take 150 mg by mouth Daily12/20/2022ctive lisinopril 20 MG tablet Take 20 mg by mouth DailyActive pravastatin (Pravachol) 40 MG tablet Take 40 mg by mouth DailyActive tamsulosin (Flomax) 0.4 MG 24 hr capsule Take 0.4 mg by mouth DailyActive amLODIPine (Norvasc) 5 MG tablet Take 5 mg by mouth Daily03/09/2024ctive esomeprazole (NexIUM) [address] capsule Take 40 mg by mouthActive Active Problems ProblemNoted DateDiagnosed IncwHgfkqdrre93/17/2025 Overview (02/22/2025): Uses nexium prn Dietary counseling and bbdbhxumtwbh29/17/2025PH with urinary obstruction 02/01/2025ED (erectile dysfunction)02/01/2025Feeling of incomplete bladder tfoqqlaf68/14/2025Increased prostate specific antigen (PSA) /14/2025 Type 2 diabetes wcvgehbi56/14/2025Type 2 diabetes mellitus with diabetic neuropathy, without long-term current use of lsdhigq9902/01/2025Lumbar stenosis with neurogenic dboflamfvodk57/10/2024cute idiopathic gout of left ankle 04/22/2023rthritis of knee, left04/22/2023rthritis of right knee04/22/2023 Arthritis of right hip04/22/2023Osteoarthritis of right hip04/22/2023rtificial knee joint yzzipcn2704/22/2023Incarcerated umbilical bxroue3904/22/2023Overweight (BMI 25.0-29.9)04/22/2023ain in right knee04/22/2023eriumbilical pain 04/22/2023rimary vtmyaywkpzqqyk88/02/2023Status post total hip replacement, right04/22/2023Status post total knee ismlbsjbxft66/02/2023Family history of diabetes xotbqcql68/21/6602Dtdouxlvrp41/21/0507Uwmcphjrniq85/21/2021rimary localized osteoarthritis of pelvic region and thigh06/24/2019Generalized anxiety rhgvuarc17/28/2018Gouty bdudyveah01/14/2018Primary kvamicalpjrv46/07/2018Primary osteoarthritis of left knee10/09/2016Lumbago-sciatica due to displacement of lumbar intervertebral disc10/08/2016Mixed mynmtpfjupefsa96/05/2017 Gastroesophageal reflux disease without cntlzxiglfz49/02/2017Other chronic pain 09/20/2016 Encounters DateTypeDepartmentCare UgcnKhvsgxecigz35/17/2025 8:00 AM ESTAncillary Procedure [facility] [address] [place] [address] 06/07/2025 8:00 AM ESTOffice Visit [facility] [address] [place] [address] James Ponce PA Acute pain of left knee (Primary Dx); History of left knee pcgdmtjpitu41/17/2025amboo flowsheet [facility] [address] [place] [address] James Ponce PA 06/07/2025Travelfrom Last 3 Months Immunizations ImmunizationAdministration DatesNext DueInfluenza, seasonal, intradermal, preservative free06/03/2018 Family History Medical HistoryRelationNameCommentsDiabetesBrotherDanDiabetesFatherWilliamGout FatherWilliamHypertensionFatherWilliamParkinsonismFatherWilliamcervical spine fractureFatherWilliamgoutFatherWilliamhypoglycemaFatherWilliamhypoglycemiaFather WilliamColon cancerMaternal GrandfatherDiabetesMaternal GrandmotherErvaDiabetes MotherDorothyHypertensionMotherDorothyKidney failureMotherDorothyColon cancer Paternal GrandfatherRelationNameStatusCommentsBrotherDanFatherWilliamDeceased Maternal GrandfatherMaternal GrandmotherErvaMotherDorothyDeceasedPaternal Grandfather Social History Tobacco UseTypesPacks/DayYears UsedDateSmoking Tobacco: NeverSmokeless Tobacco: Never Tobacco Cessation:Counseling Given: Not Answered Alcohol UseStandard Drinks/WeekCommentsYes0 (1 standard drink = 0.6 oz pure alcohol)caffeine intake:2-3 cups/daySex and Gender InformationValueDate Recorded Sex Assigned at BirthNot on fileLegal UufYeiv5410/03/2022 6:57 PM EDTGender WslhvjdzKzbr12/15/2023 6:57 PM EDTSexual OrientationNot on file Last Filed Vital Signs Vital SignReadingTime TakenCommentsBlood Qhuggvnh909/6908 8:23 AM EDT Pugyp539602/02/2025 8:02 AM EDTTemperature--Respiratory Rate--Oxygen Saturation-- Inhaled Oxygen Concentration--Vhdntb984 kg (245 lb)02/23/2025 8:23 AM EDTHeight 188 cm (6' 2 )02/23/2025 8:23 AM EDTBody Mass Index31.4608 8:23 AM EDT Plan of Treatment DateTypeDepartmentCare Team (Latest Contact Info)Dmgnhnsuufx01/04/2026 8:00 AM ESTClinical Support [facility] [address] [place] [address] Brooke Gonzalez, [facility] [address] [facility] [place] [address] 09/01/2025 8:00 AM ESTOffice Visit [facility] [address] [facility] [address] [place] [phone] Naye Samayoa MD [address] [facility] [address] [place] [address] 06/06/2026 8:00 AM ESTOffice Visit [facility] [address] [facility] [address] [place] [address] James Ponce, PA [address] [facility] [place] [address] 07/25/2026 8:00 AM ESTOffice Visit [facility] [address] [facility] [address] [place] [address] James Ponce, PA [address] [address] Health MaintenanceDue DateLast DoneCommentsCT Onkakuzkahqq1963FIT 1963FOBT1963 3259Dtlcdsriauyio1963COVID-19 Vaccine ( season)504/12/2020, 10/04/2020Influenza Vaccine (#1)2025 05/09/2023, 06/03/2018FIT-DNA/4349Enrjzmydeja37/20/2029 01/08/2019, 08/13/2013Colorectal Cancer Agvscducc37/20/2029Pneumococcal Vaccine: Pediatrics (0 to 5 Years) and At-Risk Patients (6 to 64 Years)Aged OutNo longer eligible based on patient's age to complete this topic Procedures Procedure NamePriorityDate/TimeAssociated DiagnosisCommentsXR KNEE 1-2 VIEWS PGMYXlureui31/17/2025 7:57 AM EST History of left knee replacement WLGGVHREOPRUsdccsf11/20/2019 12:00 PM EDT from Last 3 Months or Most Recently Relevant to Health Maintenance Results * XR knee 1 or 2 [...] left total knee arthroplasty Authorizing ProviderResult TypeResult StatusMattmilton Ponce PAI XR PROCEDURES Final Result * Colonoscopy (01/08/2019 12:00 PM EDT)Anatomical RegionLateralityModality EndoscopySpecimen (Source)Anatomical Location / LateralityCollection Method / VolumeCollection TimeReceived Time01/08/2019 12:00 PM EDT Narrative 01/08/2019 12:00 PM EDT PERFORMED AT [facility] LOCATION:[id number] Procedure Note CONVERSION, GENERIC - 12/05/2022 PERFORMED AT [facility] LOCATION:[id number] Authorizing ProviderResult TypeResult StatusNavdeep Amador MDENDOSCOPY PROCEDURE ORDERABLESFinal Result from Last 3 Months or Most Recently Relevant to Health Maintenance Insurance Care Teams Team MemberRelationshipSpecialtyStart DateEnd Date Lona Germain MD [address] [place] [address] PCP - GeneralFamily Gfrlpxwg62/17/25
--- OUTSIDE RECORDS SUMMARY | 2025-06-14 07:19 | XMS_ITS | Patient Health Record ---
Author Organization [facility] [place] Address [address] [place] [address] Care Team Providers Care Assistant Director Name Role Phone BERTA STOCKTON CNP Primary Care Provider -[phone] Berta Stockton Unavailable [phone] Allergies No Known Allergies Results Component Value Reference Range Notes XR lumbar spine 2-3V Reviewed date:09/02/2024 12:51:25 PM Interpretation: Performing Lab: Notes/Report: Source Facility: [place] [address] XRay Report Signed Patient: JUAN FRANCISCO PHILLIPS MR#: [id number] : 1965 Acct:[id number] Age/Sex: 59 / M ADM Date: 08/28/24 Loc: EC Attending Dr: Meg Walters M.D. Ordering Physician: Meg Walters M.D. Date of Service: 08/28/24 Procedure(s): XR lumbar spine 2-3V Accession Number(s): [id number] cc: BERTA STOCKTON ; Meg Walters M.D. [place] [id number] Patient Name: JUAN FRANCISCO PHILLIPS MRN: [id number] date: 1965 Sex: M Assigned Patient Location: EC Current Patient Location: Accession/Order Number: [id number] Exam Date: 08/28/2024 08:51 Report Date: 08/31/2024 [...] M.D. Signed By: 08/31/24815 DD/ 3 TD/TT: Lace Mender: Reason For Referral No Information Medications Medication SIG (Take, Route, Frequency, Duration) Notes Start Date End Date Status Lisinopril 20 MG take 1 tablet by mouth once juarez ly; Duration: 90 ActiveamLODIPine Besylate 5 MG1 tablet Orally Once a day; Duration: 90 days ActiveAllopurinol 100 MG1 tablet Orally Once a day; Duration: 30 daysActive Tamsulosin HCl 0.4 MG1 capsule Orally Once a day; Duration: 90 daysActive Pravastatin Sodium 40 MGtake 1 tablet by mouth once daily; Duration: 90 days Active Social History Tobacco Use: Social History Observation Description Date Details (start date - stop date) Never Smoker NA - NA Tobacco Control (Standard) Question Answer Notes Tobacco use: Nonsmoker AUDIT-C (Standard) Question Answer Notes Did you have a drink containing alcohol in the p ast year? Yes How often did you have six or more drinks on one occasion in the past year?Less than monthly (1 point)How many drinks did you have on a typical day when you were drinking in the past year?3 or 4 drinks (1 point)How often did you have a drink containing alcohol in the past year?2 to 4 times a month (2 points)Points4 InterpretationPositive Problems Problem Type SNOMED Code ICD Code Onset Dates Problem Status W/U Status Risk Notes Problem Prediabetes (957981932) Pre-diabetes (R73 .09) Activeconfirmed Vital Signs Heart Rate 72 /min 2024 Blood pressure ukbzpoknn88 mm Hg06/29/20241210Euqnud32 in2024lood pressure jbadqzsu173 mm Hg06/29/20246379Zujmse453.2 lbs108/30/2023BMI31.27 kg/m206/29/2024 Encounters Encounter Location Date Provider Diagnosis [facility] [address] [place] [address] [facility] [place] [address] 2024ambrocio StocktonPre-op evaluation Z01.818 Assessments Encounter Date Diagnosis (ICD Code) Assessment Notes Treatment Notes Treatment Clinical Notes Section Notes 2024 Pre-op evaluation (ICD-10 - Z01. 818) ROS done exam done labs reviewed- ok chest xray WNL EKG SB with 1st degree AVB ok for surgery Plan Of Treatment Pending Test Test Name Order Date CMP (COMPLETE METABOLIC PANEL) 4 HEMOGLOBIN A1C (GLYCO) 11/21/2023 HEMOGLOBIN A1C (GLYCO) 05/12/2024 INSULIN, TOTAL 05/12/2024 INSULIN, TOTAL 11/21/2023 LIPID PANEL (CHOL/TRIG/HDL/LDL) 11/21/19 24 PSA, PROSTATE-SPECIFIC ANTIGEN 4 Insurance Providers Payer Name Payer Address Payer Phone Subscriber Number Group Number Insured Name Patient Relationship to Insured Coverage Start Date Coverage End Date ALIX MORALES [facility] [address] ATTN CLAIMS [place], [place] [id number] [facility] is the insured Medical (General) History Medical History History ICD Code gout hypertensionhyperlipidemiaSurgical History Surgery Date(Month/Year) total right knee replacement right hip replacement left knee replacement hernia lower abdomen 2021
--- OUTSIDE RECORDS SUMMARY | 2025-06-14 07:19 | XMS_ITS | Clinical Summary ---
Author Organization [facility] Address [id number] [place] [address] Care Team Providers Care Continuous Process Tanner Rotary Drum Name Role Phone Adiel Law ANGELLA-INFORMATICA MDM ARCHITECT Primary Care Provider [phone] Allergies No known active allergies Medications MedicationSigDispense QuantityRefillsLast FilledStart DateEnd DateStatus atorvastatin (LIPITOR) 20 mg tablet Take 20 mg by mouth daily.Active lisinopril (PRINIVIL,ZESTRIL) 20 mg tablet Take 20 mg by mouth nightly. Active amLODIPine (NORVASC) 10 mg tablet Take 10 mg by mouth daily.Active Active Problems No known active problems Family History Medical HistoryRelationNameCommentsDiabetesFatherHypertensionFatherDiabetes MotherHeart diseaseMotherRelationNameStatusCommentsFatherDeceasedMotherDeceased Social History Tobacco UseTypesPacks/DayYears UsedDateSmoking Tobacco: NeverSmokeless Tobacco: NeverAlcohol UseStandard Drinks/WeekCommentsYes0 (1 standard drink = 0.6 oz pure alcohol)occassionalChildcareAnswerDate RkdvlgmcPwypkaotaAsidtfl75/12/2019 EmploymentAnswerDate VaczwpvrRnpllfmsvqRnjbbpp28/12/2019Purpose - LifeAnswerDate RecordedPurpose and direction in ubacKejazyi07/11/2021ex and Gender Information ValueDate RecordedSex Assigned at PwxlnRbih21/30/2025 1:04 PM EDTLegal SexMale 02/24/2015 11:37 AM EDTGender VtktmnvyFcsh94/30/2025 1:04 PM EDTSexual XtuegyuujhfRolwwyyv59/30/2025 1:04 PM EDT Last Filed Vital Signs Vital SignReadingTime TakenCommentsBlood Curmzxxw713/9301/08/2019 8:19 AM EDT Qjspy358001/08/2019 8:19 AM SNMZcxuwehyahu55.4 ??C (97.6 ??F)01/08/2019 7:20 AM EDTRespiratory Zsfb151001/08/2019 8:19 AM EDTOxygen Thikudghxb15%01/08/2019 8:19 AM EDTInhaled Oxygen Concentration--Mgbhcv849.4 kg (250 lb)01/08/2019 7:20 AM HURWopxdc580 cm (6' 4 )01/08/2019 7:20 AM EDTBody Mass Index30.43001/08/2019 7:20 AM EDT Plan of Treatment Health MaintenanceDue DateLast DoneCommentsDepression Mrzjxzxzx95/09/1975Tobacco Rbbqjofue93/09/1975Adult BMI Ghdhlcsnf85/09/1981DTaP,Tdap and Td Vaccines (1 - Tdap)1982Zoster (Shingles) Vaccine (1 of 2)2013COVID-19 Vaccine (3 - 2024- season)504/12/2020, 10/04/2020Influenza Nvofnpv2703/22/2025 06/03/2018, 06/03/2018RSV ( or age 60+ yrs) (1 - 1-dose 75+ series) 2038 Medical Devices Not on file Care Teams Team MemberRelationshipSpecialtyStart DateEnd Date Adiel Law APRN-INFORMATICA MDM ARCHITECT PCP - GeneralPrimary Care Jaanaesc92/2/23
--- OUTSIDE RECORDS SUMMARY | 2025-06-14 07:19 | XMS_ITS | Patient Health Record ---
Author Organization [facility] Address [address] [place] [address] Care Team Providers Care Manager Quality Improvement Name Role Phone Rodolfo Keller JR, DO Primary Care Provider Radha Meg Saenz Unavailable [phone] Elissa Wynne Unavailable Allergies No Known Allergies Results Component Value Reference Range Notes EGFR1 Reviewed date:07/08/2024 03:19:41 PM Interpretation: Performing Lab: Notes/Report: Original Ordering Provider: MD MEG BENSON PHD, Interested Provider Role: [place] [address] [address] [facility] [address] ESTIMATED GFR 86 >60 ml/min/1.73m2 using the 2020 CKD-EPI equation. Careful clinical https://www.kidney.org/profess ionals/kdoqi/gfr_calculatorped <18 years of age. These results are [...] factor Performing Lab: see note NVML - [facility] [address] [place] [address] Kumar Pichardo Metabolic Panel Reviewed date:07/08/2024 03:19:41 PM Interpretation: Performing Lab: Notes/Report: [facility] [address] [place] [address] Original Ordering Provider: MD MEG BENSON PHD, Interested Provider Role: QegzbrmfGLLDNC030381-060 meq/LPOTASSIUM4.83.5-5.2 meq/OBFXXOENA46475-972 meq/L QT37837-38 meq/RZFCAITY24495-888 mg/nGBOW166-46 mg/dLCREATININE1.00.4-1.2 mg/dL CALCIUM9.88.5-10.5 mg/dLProthrombin Time Reviewed date:07/08/2024 03:19:41 PM Interpretation: Performing Lab: Notes/Report: [place] [address] Original Ordering Provider: MD MEG BENSON PHD, Interested Provider Role: Ordering [address] [facility] DealBirdPROTHROMBIN TIME, INR1.050.85-1.13 Mechanical prosthetic valves 2.5 to 3.5 DVT, PE, AF, AMI, tissue heart valve 2.0 to 3.0 ---------INDICATION INR Reference Range CBC NO DIFFERENTIAL Reviewed date:07/08/2024 03:19:41 PM Interpretation: Performing Lab: Notes/Report: [facility] [address] [place] [address] Original Ordering Provider: MD MEG BENSON PHD, Interested Provider Role: OrderingWBC6.44.8-10.8 thou/yw9JAZ9.664.70-6.10 mill/os7EDVNQDWCWS26.414.0-18.0 gm/huAWAQVLQIUV78.942.0-52.0 %MCV88.280.0-94.0 fLMCH29.026.0-33.0 krMDND67.9 32.2-35.5 gm/dlRDW-CV12.611.5-14.5 %RDW-SD41.035.0-45.0 iWMLLGGWCZ940032-280 thou/cb8MAL4.79.4-12.4 fLAPTT Reviewed date:07/08/2024 03:19:41 PM Interpretation: Performing Lab: Notes/Report: [facility] [address] [place] [address] Original Ordering Provider: MD MEG BENSON PHD, Interested Provider Role: LkggnrqqUAMU33.222.0-38.0 seconds Therapeutic Heparin Reference Range= 60-95 seconds (corresponds to 0.3 to 0.7 u/mL Anti-Xa factor activity) Anion Gap Reviewed date:07/08/2024 03:19:41 PM Interpretation: Performing Lab: Notes/Report: [facility] [address] [place] [address] Original Ordering Provider: MD MEG BENSON PHD, Interested Provider Role: OrderingANION GAP12.08.0-16.0 meq/LANION GAP = Sodium -(Chloride + CO2)EKG 12-LEAD Reviewed date:07/13/2024 10:47:21 AM Interpretation: Performing Lab: Notes/Report: [address] [facility] [address] [place] [address], Original Ordering Provider: Mel ZEPEDA Provider Role: OrderingXR CHEST STANDARD TWO VW Reviewed date:07/13/2024 10:47:21 AM Interpretation: Performing Lab: Notes/Report: PROCEDURE: XR CHEST (2 VW) [place] [address] [address] [address], Original Ordering Provider: Mel ZEPEDA Provider Role: OrderingMRSA by PCR Reviewed date:07/08/2024 03:19:41 PM Interpretation: Performing Lab: Notes/Report: [facility] [address] [place] [address] Original Ordering Provider: MD MEG BENSON PHD, Interested Provider Role: OrderingMRSA SCREEN RT-PCRNEGATIVE No MRSA detected by Real Time - Polymerase Chain Reaction. Specimen Source: Nares Performing Lab:see rashawnNVML - [facility] [address] [place] [address] Kumar MyersXR LUMBAR SPINE 1 VW Reviewed date:07/08/2024 03:19:37 PM Interpretation: Performing Lab: Notes/Report: PROCEDURE: XR LUMBAR SPINE 1 VW [place] [address] [address] [address], Original Ordering Provider: MEG BENSON, Mel Provider Role: Ordering Reason For Referral No Information Medications Medication SIG (Take, Route, Frequency, Duration) Notes Start Date End Date Status tamsulosin 0.4 mg 1 cap(s) ActiveCyclobenzaprine Hydrochloride 10 mg1 tab(s) orally 3 times a day prn muscle dzgixv28/06/2024Activegabapentin 300 mg1 cap(s) orally 3 times a day; Duration: 30 day(s)5Activelisinopril 20 mg1 tab(s)Activeatorvastatin 20 mg1 tab(s)ActiveamLODIPine 10 mg1 tab(s)Activeallopurinol 100 mgas directed orallyActive Social History Tobacco Use: Social History Observation Description Date Details (start date - stop date) Never Smoker NA - NA AUDIT-C (Standard) Question Answer Notes Did you have a drink containing alcohol in the p ast year? Yes How often did you have six or more drinks on one occasion in the past year? Declined to specify (0 point)How many drinks did you have on a typical day when you were drinking in the past year?1 or 2 drinks (0 point)How often did you have a drink containing alcohol in the past year?Declined to specify (0 point)Points0 InterpretationNegativeTobacco Control (Standard) Question Answer Notes Tobacco use: Nonsmoker Problems Problem Type SNOMED Code ICD Code Onset Dates Problem Status W/U Status Risk Notes Problem Numbness (00349414) Numbness (R20.0) ActiveconfirmedProblemHistory of arthrodesis (169913161)Arthrodesis status (Z98.1)ActiveconfirmedProblemAcquired spondylolisthesis (530260067) Spondylolisthesis, lumbar region (M43.16)ActiveconfirmedProblemSpinal stenosis of lumbar region (44875906)Spinal stenosis, lumbosacral region (M48.07)Active confirmedProblemDisplacement of lumbar intervertebral disc without myelopathy (49497329)Other intervertebral disc displacement, lumbosacral region (M51.27) ActiveconfirmedProblemLumbosacral radiculopathy (0460320)Radiculopathy, lumbosacral region (M54.17)ActiveconfirmedProblemPostoperative seroma (902506957)Postprocedural seroma of skin and subcutaneous tissue following other procedure (L76.34)ActiveconfirmedProblemEncounter for other orthopedic aftercare (Z47.89)ActiveconfirmedProblemOther intervertebral disc degeneration, lumbosacral region with discogenic back pain and lower extremity pain (M51.372) ActiveconfirmedProblemDegeneration of intervertebral disc of lumbosacral region with discogenic back pain (M51.370)Activeconfirmed Encounters Encounter Location Date Provider Diagnosis [facility] Office [address] [place] [address] [place] [address] 06/26/2024 Selvon Anne-Marie Spinal stenosis, lumbosacral region M48.07 ; Radiculopathy, lumbosacral region M54.17 and Degeneration of intervertebral disc of lumbosacral region with discogenic back pain M51.370 [facility] Out[facility] [address] [place], [place] [address], [place] [address] 06/30/2024 Selvon Anne-Marie Spinal stenosis, lumbosacral region M48.07 and Other intervertebral disc degeneration, lumbosacral region with discogenic back pain and lower extremity pain M51.372 [facility] Office [address] [place] [address] [facility] for other [facility]opedic aftercare Z47.89 ; Postprocedural seroma of skin and subcutaneous tissue following other procedure L76.34 and Arthrodesis status Z98.1 [facility] Office [address] [place] [address] [place] [address] [facility]/28[facility]counter for other [facility]opedic aftercare Z47.89 and Arthrodesis status Z98.1 [facility] Office [address] [place] [address] [place] [address] [facility] Spondylolisthesis, lumbar region M43.16 ; Numbness R20.0 ; Encounter for other orthopedic aftercare Z47.89 and Arthrodesis status Z98.1 [facility] [place] [address] [place] [address] 07/06/2024 Selvon Anne-Marie Assessments Encounter Date Diagnosis (ICD Code) Assessment Notes Treatment Notes Treatment Clinical Notes Section Notes 06/26/2024 Spinal stenosis, lumbosacral reg ion (ICD-10 - M48.07) 06/26/2024adiculopathy, lumbosacral region (ICD-10 - M54.17)06/30/2024Spinal stenosis, lumbosacral region (ICD-10 - M48.07)06/30/2024Other intervertebral disc degeneration, lumbosacral region with discogenic back pain and lower extre mity pain (ICD-10 - M51.372)4Postprocedural seroma of skin and subcutaneous tissue following other procedure (ICD-10 - L76.34)1. 10 days s/p L4-S1 decompression/mcthvu6207/10/2024Encounter for other orthopedic aftercare (ICD-10 - Z47.89)1. 10 days s/p L4-S1 decompression/lkdufi1608/28/2024rthrodesis status (ICD-10 - Z98.1)1. 8 weeks s/p L4-S1 decompression/qnycmm2708/28/2024 Encounter for other orthopedic aftercare (ICD-10 - Z47.89)1. 8 weeks s/p L4-S1 decompression/ygnkdr1912/25/2024Numbness (ICD-10 - R20.0) 1. 6 months s/p L4-S1 decompression/fusion 2. L3 on 4 mild retrolisthesis 12/25/2024Spondylolisthesis, lumbar region (ICD-10 - M43.16) 1. 6 months s/p L4-S1 decompression/fusion 2. L3 on 4 mild retrolisthesis 12/25/2024Encounter for other orthopedic aftercare (ICD-10 - Z47.89) 1. 6 months s/p L4-S1 decompression/fusion 2. L3 on 4 mild retrolisthesis 4Arthrodesis status (ICD-10 - Z98.1)1. 10 days s/p L4-S1 decompression/qfhelv734Degeneration of intervertebral disc of lumbosacral region with discogenic back pain (ICD-10 - M51.370)12/25/2024rthrodesis status (ICD-10 - Z98.1) 1. 6 months s/p L4-S1 decompression/fusion 2. L3 on 4 mild retrolisthesis 07/10/2024Other I reassured patient today that his drainage does not appear infected and this is likely a seroma. Iwill prescribe him Keflex and Bactrim for prophylaxis. We did give him some ABD pads for the increased drainage. I will have him follow-up in 2 weeks for a recheck. I instructed him that if he shouldhave any new headaches, purulent drainage, fever, night [...] Best regards, 1. 10 days s/p L4-S1 decompression/pbuqfn5308/28/2024Other Plan established by Dr. Watlers. Patient evaluated by myself and Dr. Walters [...] Best regards, 1. 8 weeks s/p L4-S1 decompression/wpbjzw5012/25/2024Other Plan established by Dr. Walters. Patient evaluated by myself and Dr. Walters today. We are going to get him started on gabapentin to try and ease his foot/toe numbness symptoms while he is still healing. We will see him back in 6 months for his next postop recheck, sooner if any new or worsening symptoms arise. The patient is very much in agreement with the treatment and/or diagnostic plan set forth and all questions were answered to the patient's satisfaction. Thanks once again. If we can be of further service to your patients with disorders of the spine, cervical, thoracic, or lumbar, please do not hesitate to contact Dr. Walters. 1. 6 months s/p L4-S1 decompression/fusion 2. L3 on 4 mild retrolisthesis Plan Of Treatment Pending Test Test Name Order Date Lumbar spine, 4v flex ext - 38455 2023 Lumbar spine, 4v flex ext - 77894 2024 Lumbar spine 2v ap and lat - 76433 08/28 Surgery Scheduling 06/09/2024 Future Test Test Name Order Date Chest 2 views - 86386 06/09/2024 CBC 06/09/2024 PT/PTT 06/09/2024 BMP 06/09/2024 MRSA (Bilateral Nares) PCR 06/09/2024 EKG 06/09/2024 Insurance Providers Payer Name Payer Address Payer Phone Subscriber Number Group Number Insured Name Patient Relationship to Insured Coverage Start Date Coverage End Date [facility] [address] [address] [place] [address] [id number] JOHN CARMENelf - patient is the insuredAt[facility] HospitalPO [address] [place] [id number], JOHNSelf - patient is the [id number] 2024 Medical (General) History Medical History History ICD Code High Blood Pressure Gastric RefluxSurgical History Surgery Date(Month/Year) L4-S1 laminectomy, PSF 06/2024 Hernia 11/2021 Right hip 11/2022 Left knee replacement, total 04/2023 Right knee replacement, total 06/12 Micro discectomy 1994
--- OUTSIDE RECORDS SUMMARY | 2025-06-14 07:20 | XMS_ITS | Encounter Summary ---
Author Organization [facility] Address [address] [place] [address] Care Team Providers Care Linseed Oil Order Filler Name Role Phone Lona Germain MD Primary Care Provider [phone] Encounter Details DateTypeDepartmentCare Team (Latest Contact Info)Dluyejzcija32/17/2025Travel Social History Tobacco UseTypesPacks/DayYears UsedDateSmoking Tobacco: NeverSmokeless Tobacco: NeverAlcohol UseStandard Drinks/WeekCommentsYes0 (1 standard drink = 0.6 oz pure alcohol)caffeine intake:2-3 cups/daySex and Gender InformationValueDate Recorded Sex Assigned at BirthNot on fileLegal BtkChjc6710/03/2022 6:57 PM EDTGender JmzkbyhyRmqs45/15/2023 6:57 PM EDTSexual OrientationNot on filedocumented as of this encounter Plan of Treatment DateTypeDepartmentCare Team (Latest Contact Info)Uprafedpfnt73/04/2026 8:00 AM ESTClinical Support [facility] [address] [place] [address] Brooke Gonzalez, [facility] [address] [place] [place] [address] 09/01/2025 8:00 AM ESTOffice Visit [facility] [address] [place] [address] Naye Samayoa MD [address] [place] [address] 06/06/2026 8:00 AM ESTOffice Visit [facility] [address] [place] [address] James Ponce, PA [address] [address] 07/25/2026 8:00 AM ESTOffice Visit [facility] [address] [facility] [address] [place] [address] James Ponce, PA [address] [place] [address] documented as of this encounter Visit Diagnoses Not on filedocumented in this encounter Care Teams Team MemberRelationshipSpecialtyStart DateEnd Date Lona Germain MD [address] [place] [address] PCP - GeneralFamily Lmsiosyp66/17/25documented as of this encounter
--- OUTSIDE RECORDS SUMMARY | 2025-06-14 07:20 | XMS_ITS | Encounter Summary ---
Author Organization [facility] Address [address] [place] [address] Care Team Providers Care Er Nurse Name Role Phone Lona Germain MD Primary Care Provider [phone] Encounter Details DateTypeDepartmentCare Team (Latest Contact Info)Qrbudjzwwrf72/17/2025amboo flowsheet [facility] [place] [address] [facility] [address] [place] [address] James Ponce, STEVO [address] [place] [address] Social History Tobacco UseTypesPacks/DayYears UsedDateSmoking Tobacco: NeverSmokeless Tobacco: NeverAlcohol UseStandard Drinks/WeekCommentsYes0 (1 standard drink = 0.6 oz pure alcohol)caffeine intake:2-3 cups/daySex and Gender InformationValueDate Recorded Sex Assigned at BirthNot on fileLegal NcdMgei8610/03/2022 6:57 PM EDTGender DwubriftTgyo09/15/2023 6:57 PM EDTSexual OrientationNot on filedocumented as of this encounter Plan of Treatment DateTypeDepartmentCare Team (Latest Contact Info)Lvsxjzrhkbf07/04/2026 8:00 AM ESTClinical Support [facility] [address] [place] [address] Brooke Gonzalez, [facility] [address] [place] [address] 09/01/2025 8:00 AM ESTOffice Visit [facility] [place] [facility] [address] [place] [address] Naye Samayoa MD [address] [place] [address] 06/06/2026 8:00 AM ESTOffice Visit [facility] [address] [facility] [address] [place] [address] James Ponce, PA [address] [place] [address] 07/25/2026 8:00 AM ESTOffice Visit [facility] [place] [facility] [address] [facility] [address] [place] [address] James Ponce, PA [address] [place] [address] documented as of this encounter Visit Diagnoses Not on filedocumented in this encounter Care Teams Team MemberRelationshipSpecialtyStart DateEnd Date Lona Germain MD [address] [address] PCP - GeneralFamily Ftokipfu87/17/25documented as of this encounter
--- OUTSIDE RECORDS SUMMARY | 2025-06-14 07:20 | XMS_ITS | Patient Health Record ---
Author Organization [facility] vices Address [address] [place], [place] [id number] Care Team Providers Care Business Quality Assurance Analyst Name Role Phone Adiel Bravo Primary Care Provider Allergies No Known Allergies Reason For Referral No Information Medications Medication SIG (Take, Route, Frequency, Duration) Notes Start Date End Date Status Ohsiygeey-Penkshpf-FG 30-2-10 MG/5ML Syr up 5 mL as needed Orally Every 8 hours; Duration: 14 days DO NOT USE WITH TESDOM LAI 07/29/2023ctiveTamsulosin HCl 0.4 MG Capsule1 capsule Orally Once a day; Duration: 90 daysActiveAllopurinol 100 MG Tablet1 tablet Orally Once a day; Duration: 90 daysActiveSildenafil Citrate 25 MG Tablet1 tablet 0.5-1 hr prior to sexual activity repeat x1 if needed Orally Once a day; Duration: 30 days 05/20/2023Not-Taking/PRNFish Oil Clayton-3 1000 MG Capsule1 capsule Orally Once a day; Duration: 90 days05/09/2023Not-Taking/PRNpredniSONE 50 MG Tablet1 tablet Orally Once a day; Duration: ctiveAzithromycin 250 MG Tablet2 tabs on day 1 and then 1 tab on days 2-5 Orally Daily; Duration: 5 days07/29/2023 ActiveAlbuterol Sulfate HFA 108 (90 Base) MCG/ACT Aerosol Solution1 puff as needed Inhalation every 4 hrs; Duration: ctiveAtorvastatin Calcium 20 MG Tablet1 tablet Orally Once a dayActiveLisinopril 20 MG Tablet1 tablet Orally Once a day; Duration: 90 daysActiveBenzonatate 100 MG Capsule 1 capsule as needed Orally Three times a day; Duration: 5 days DO NOT USE WITH COUGH SYRUP 07/29/2023ctiveamLODIPine Besylate 10 MG Tablet1 tablet Orally Once a day; Duration: 90 daysActive Immunizations Vaccine Route Administration Date Status Comme nts *Phqjneeqp-Zseotrmmc-Fnmnt te IM Intramuscular 05/09/2023 Administered *Tdap (Adacel)-PrivateIM Wriniqwexohbz66/19/2023dministered Social History Tobacco Use: Social History Observation Description Date Details (start date - stop date) Never Smoker NA - NA Sex Assigned At : Social History Observation Description Sex Assigned At Male Social History Social DeterminantsSocial InfoQuestionAnswerNotesPRAPAREDate Completed/Updated: 07/29/2023patient entered dataWhat is your current housing situation?I have housingpatient entered dataAre you worried about losing your housing?No patient entered dataWhat is the highest level of school that you have finished?More than high schoolpatient entered dataWhat 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 Check all that applyI do not have problems meeting my needsHas lack of transportation kept you from medical appointments, meetings, work or from getting things needed for daily living?NoHow often do you see or talk to people that you care about and feel close to? (For example: talkingto friends on the phone, visiting friends or family, going to mandaeism or club meetings)More than 5 times a weekpatient entered dataHow stressed are you? Stress is when someone feels tense, nervous, anxious, or can't sleep at nightbecause their mind is troubledA little bitpatient entered dataIn the past year have you spent more than 2 nights in a row in a detention, longterm, senior care center, orjuvenile correctional facility?Nopatient entered dataAre you a refugee?Nopatient entered dataWhat country are you from?[place] Statespatient entered dataDo you feel physically and emotionally safe where you currently live?Yespatient entered dataIn the past year, have you been afraid of your partner or ex-partner?Nopatient entered dataPRAPARE Score:1PCMH and UDS Demographics Social [place] SolutionserNotesPricooper green [facility] QuestionsDo you have any barriers to learning?Nonepatient entered dataWhat is your preferred method of learning?Readingpatient entered dataHow often do you need to have someone help you read instructions?Neverpatient entered dataDrugs/Alcohol/Caffeine: Sun[employer] ProduceerNotesCAGE-AID Questionnaire (2018 Edition)Have you ever felt that you ought to cut down on your drinking or drug use?Nopatient entered dataHave people annoyed you by criticizing your drinking or drug use?No patient entered dataHave you ever felt bad or guilty about your drinking or drug use?Nopatient entered dataHave you ever had a drink or used drugs first thing in the morning to steady your nerves or to get rid of a hangover?No patient entered dataCAGE-AID Wfyfs8CmtwtpwyswpqnfHydfpkueFdqahsk Use:[employer] ProduceerNotesTobacco Use/SmokingTobacco use:nonsmokerpatient entered data Problems Problem Type SNOMED Code ICD Code Onset Dates Problem Status W/U Status Risk Notes Problem Hyperlipidemia (73961417) Hyperlipidemia (E78.5) ActiveconfirmedProblemType 2 diabetes mellitus (01788829)Type 2 diabetes mellitus (E11.9)ActiveconfirmedProblemHypertension (73730977)HTN (hypertension) (I10)ActiveconfirmedProblemHypertriglyceridemia (059459259)Hypertriglyceridemia (E78.1)ActiveconfirmedProblemErectile dysfunction (disorder) (519743963)Erectile dysfunction, unspecified erectile dysfunction type (N52.9)Activeconfirmed Plan Of Treatment No Information Insurance Providers Payer Name Payer Address Payer Phone Subscriber Number Group Number Insured Name Patient Relationship to Insured Coverage Start Date Coverage End Date Sandy Bernstein Commercial [address] [place] [address] [id number] Mike Phillips Self - patient is the insured 3 Medical (General) History Medical History History ICD Code HTN (hypertension) I10 Hyperlipidemia E78.5 Type 2 diabetes mellitus E11.9 Gout M10.9 Surgical History Surgery Date(Month/Year) Hernia Surgery 02/2022 R Knee Replacement 05/2022 R Hip Replacement 11/2022 left knee replacement 04/2023 Hospitalization History Reason Date(Month/Year) see above
--- OUTSIDE RECORDS SUMMARY | 2025-06-14 07:20 | XMS_ITS | Clinical Summary ---
Author Organization [facility] Address [address], [address] [place] [address] Care Team Providers Care Medical Art Therapist Name Role Phone David Gonzalez MD Primary Care Provider [phone] Allergies No known active allergies Medications MedicationSigDispense QuantityRefillsLast FilledStart DateEnd DateStatus amLODIPine (NORVASC) 5 MG tablet Take 1 tablet by mouth daily03/09/2024ctive esomeprazole (NEXIUM) 40 MG delayed release capsule Take 1 capsule by mouth every morning (before breakfast)Active lisinopril (PRINIVIL;ZESTRIL) 20 MG tablet Take 1 tablet by mouth dailyActive allopurinol (ZYLOPRIM) 100 MG tablet Take 1 tablet by mouth dailyActive ofloxacin (OCUFLOX) 0.3 % solution Place 1 drop into the right eye in the morning, at noon, and at bedtime 06/22/2024ctive ketorolac (ACULAR) 0.5 % ophthalmic solution Place 1 drop into the right eye in the morning, at noon, and at bedtime 06/22/2024ctive pravastatin (PRAVACHOL) 40 MG tablet Take 1 tablet by mouth daily06/04/2024ctive prednisoLONE acetate (PRED FORTE) 1 % ophthalmic suspension Place 1 drop into the right eye 3 times daily06/22/2024ctive Active Problems ProblemNoted DateDiagnosed DateLumbar stenosis with neurogenic claudication 06/30/2024 Social History Tobacco UseTypesPacks/DayYears UsedDateSmoking Tobacco: NeverSmokeless Tobacco: Never Tobacco Cessation:Counseling Given: Not Answered Alcohol UseStandard Drinks/WeekCommentsYes4 (1 standard drink = 0.6 oz pure alcohol)sociallyInterpersonal Safety Domain Source: IP Abuse ScreeningAnswerDate RecordedPhysical aupreEsqylm58/10/2024Verbal rbpolIqxton33/10/2024Emotional jtbhzFaabxd20/10/2024Financial dvzzxNttqyk22/10/2024Sexual aqildZprglr38/10/2024 Sex and Gender InformationValueDate RecordedSex Assigned at BirthNot on file Legal YclMwmn9708/31/2012 9:06 AM ESTGender IdentityNot on fileSexual Orientation Not on file Last Filed Vital Signs Vital SignReadingTime TakenCommentsBlood Kmuzwodf395/7407/02/2024 11:55 AM EST Hamhd850007/02/2024 11:55 AM NHQWfjvoapiyjl88.9 ??C (98.4 ??F)07/02/2024 11:55 AM ESTRespiratory Qwcu575409/02/2023 11:55 AM ESTOxygen Tmhcrluzfk59%07/02/2024 11:55 AM ESTInhaled Oxygen Concentration--Ornqiv164 kg (247 lb)06/30/2024 11:43 AM EST Iqfhsv478.5 cm (6' 3 )06/30/2024 11:43 AM ESTBody Mass Index30.8706/30/2024 11:43 AM EST Plan of Treatment Health MaintenanceDue DateLast JgjxLnfurwjsOficlb12/09/1973Depression Screen 1975HIV trpjfm2006/29/1978Hepatitis C mqlwye0806/29/1981Diabetes screen 06/29/19980722Corpccodivp90/09/2008Colorectal Cancer Ndlhyj1406/29/2008FIT/FOBT: Average risk2008Fecal-DNA (Cologuard): Average risk2008 Sigmoidoscopy/CT shdrsjqahbsq90/09/2008Pneumococcal 50+ years Vaccine (1 of 1 - PCV)2013Shingles vaccine (1 of 2)2013Flu vaccine (#1)02/19/2025 05/09/2023, 06/03/2018COVID-19 Vaccine (3 - 2024- season)504, 1DTaP/Tdap/Td vaccine (2 - Td or Tdap)Respiratory Syncytial Virus (RSV) or age 60 yrs+ (1 - 1-dose 75+ series)2038 Hepatitis A vaccineAged OutNo longer eligible based on patient's age to complete this topicHepatitis B vaccineAged OutNo longer eligible based on patient's age to complete this topicHib vaccineAged OutNo longer eligible based on patient's age to complete this topicMeningococcal (ACWY) vaccineAged OutNo longer eligible based on patient's age to complete this topicMeningococcal B vaccineAged OutNo longer eligible based on patient's age to complete this topicPolio vaccineAged OutNo longer eligible based on patient's age to complete this topic Medical Devices ImplantedTypeAreaManufacturerDevice IdentifierShelf Expiration DateModel / Serial / LotSystem Seal 5ml Spine Dura Hydrgel Polyeth Glycol - [id number] Implanted:Qty: 1 on 06/30[facility]: Spine LumbarINTEGRA LIFESCIENCES SUMEET-[id number] / / [id number] Screw 5.5-6.0 - [id number] Implanted:Qty: 6 on 06/30/2024 [facility]: Spine LumbarSURGALIGN SPINE [employer]CH[employer] [id number] / / Screw Poly Solid 7.5x45 - [id number] Implanted:Qty: 2 on 06/30/2024 [facility]: Spine LumbarSURGALIGN SPINE [employer]CHN[employer] INC [id number] / / Screw Poly Solid 7.5x50 - [id number] Implanted:Qty: 4 on 06/30/2024 [facility]: Spine LumbarSURGALIGN [employer]INE [employer]CH[employer] [id number] / / Gene Ti Prebent 5.5x60 - [id number] Implanted:Qty: 1 on 06/30/2024 [facility]: Spine LumbarSURGALIGN [employer] [id number] / / Gene Ti Prebent 5.5x65 - [id number] Implanted:Qty: 1 on 06/30/2024 [facility]: Spine LumbarSURGALIGN [employer]INE [employer]CHN[employer] [id number] / / Insurance Advance Directives * Full Code (Latest Code Status on File) Date ActivatedDate TlbqzgvpofmVsebdppp36/10/2024 11:29 AM07/02/2024 7:07 PM NameRelationshipHealthcare Agent RelationshipCommunicationTomi [facility] CenterSpjacobi medical center Primary Decision Maker* Care Teams Team MemberRelationshipSpecialtyStart DateEnd Date David Gonzalez MD [address] [place] [address] [facility] Mfgdmxbd64/6/24
[2025-06-14 07:40] LABS: Hematocrit 46.9 % (42.0-54.0); Hemoglobin 15.4 g/dL (14.0-18.0); Immature Granulocytes Abs Auto 0.01 10^3/uL (0.00-0.03); Immature Granulocytes Pct Auto 0.2 % (0.0-0.5); Lymphocytes Absolute Auto 1.8 10^3/uL (1.2-3.8); Mean Corpuscular HGB Conc 32.8 g/dL (29.9-35.2); Mean Corpuscular Hemoglobin 28.4 pg (25.9-34.0); Mean Corpuscular Volume 86.5 fL (80.0-94.0); Platelet Count 254 10^3/uL (150-450); Red Blood Count 5.42 10^6/uL (4.70-6.10); White Blood Count 5.0 10^3/uL (4.0-11.0)
[2025-06-14 07:53] LABS: Glucose Urine UA NEGATIVE (NEGATIVE)
[2025-06-14 08:10] LABS: Iron 99.0 ug/dL (65.0-175.0); Percent Iron Saturation 35.5 %; Total Iron Binding Capacity 279.0 ug/dL (250.0-450.0)
[2025-06-14 11:02] LABS: Alanine Aminotransferase 74 U/L (16-63); Albumin Globulin Ratio 1.1; Albumin Level 3.8 g/dL (3.4-5.0); Alkaline Phosphatase 79 U/L (46-116); Anion Gap 8.1; Aspartate Amino Transferase 30 U/L (15-37); Blood Urea Nitrogen 15.0 mg/dL (7.0-18.0); Calcium 9.0 mg/dL (8.5-10.1); Carbon Dioxide 30.2 mmol/L (21.0-32.0); Chloride 105 mmol/L (98-107); Cholesterol 174 mg/dL (<=200); Creatine Kinase 274 U/L (39-308); Estimated GFR (African America >60 (>=60 mL/min/1.73m^2); Estimated GFR (Non-African Ame >60 (>=60 mL/min/1.73m^2); Globulin 3.6 g/dL; Glucose 165 mg/dL (74-106); HDL Cholesterol 42 mg/dL (40-60); Potassium 4.3 mmol/L (3.5-5.1); Sodium 139 mmol/L (136-145); Thyroid Stimulating Hormone 1.508 uIU/mL (0.358-3.740); Total Protein 7.4 g/dL (6.4-8.2); Triglycerides 124 mg/dL (<=150); Uric Acid 5.8 mg/dL (3.5-7.2); VLDL CHOLESTEROL 24.8 mg/dL
[2025-06-14 11:05] LABS: Folate 12.20 ng/mL (8.60-58.90)
[2025-06-15 04:07] LABS: Vitamin B12 269 pg/mL (232-1245)
== END 2025-06-14 07:15 | disposition home or self-care (01) ==
PROVIDERS: PCP Family Medicine; Visit Provider Family Medicine
DX: M25.50 Pain in unspecified joint (principal); M79.10 Myalgia, unspecified site; M10.9 Gout, unspecified; R73.03 Prediabetes; I10 Essential (primary) hypertension; E78.5 Hyperlipidemia, unspecified
CPT/HCPCS: 36415; 80053; 80061; 81003; 82043; 82550; 82570; 82607; 82746; 83036; 83540; 83550; 84443; 84550; 85025; 85652; 86140

== ENCOUNTER 2025-06-21 10:22 | Outpatient (OUT) | payer OTHER, SELFPAY ==
--- OUTSIDE RECORDS SUMMARY | 2024-07-07 04:50 | XMS_ITS ---
Author Organization [facility] Address [address] [place] [address] Care Team Providers Care Biology Research Assistant Name Role Phone Rodolfo Keller JR, DO Primary Care Provider Radha vailable Cece Xie Unavailable [phone] REASON FOR VISIT L4-S1 DECOMPRESSION AND FUSION , L4-5 TLIF, [facility] Encounters Encounter Location Date Provider Diagnosis [facility] [address] [facility] [place] [id number] 07/07/2024 Cece Xie Plan Of Treatment No Information Progress Notes * JUAN FRANCISCO CARMEN MDOB:1965 (59 yo M)Acc No.[id number]:07/07/2024 Patient:?JUAN FRANCISCO CARMEN :?Cece Walters MD, PhDDOB:1965 ???Age:59 Y???Sex:MaleDate:07/07/2024hone:[phone]:[address] [place], [place] [address]Pcp:Rodolfo Keller JR, DO * Images: * Electronic signature of Cece Xie MD, PHD on 06/21/2025 at 10:30 AM EST Sign off status: Pending * Provider: Anne Walters MD, PhD Date: 09/07/2023 Generated for Printing/Faxing/eTransmitting on:?06/21/2025 10:30 AM EST
--- OUTSIDE RECORDS SUMMARY | 2024-07-10 05:30 | XMS_ITS ---
Author Organization The [facility] in [place] Address [address] [place] [address] Care Team Providers Care Bellows Filler Name Role Phone BERTA STOCKTON CNP Primary Care Provider -[phone] Berta Stockton [phone] [facility] D/C-07/02 Encounters Encounter Location Date Provider Diagnosis [facility] [address] [place] [address] 07/10/2024 Berta Stockton Plan Of Treatment No Information Progress Notes * Mike PHILLIPS MDOB:1965 (59 yo M)Acc No.[id number]:07/10/2024 UNLOCKED PROGRESS NOTE Progress Note Patient: Mike BARAJAS :?Berta Stockton ([facility])SERADOB:1965 ???Age:59 Y???Sex:MaleDate:4Phone:[phone]:[address] [place] [address]Pcp:BERTA STOCKTON CNP Subjective: * Chief Complaints: * [address] [facility] D/C-07/02. * Medical History: Objective: * Vitals: Assessment: Plan: * Treatment: * * Electronic signature of Berta Stockton NP, ART EDUCATOR.[id number] on 06/21/2025 at 10:27 AM ESTSign off status: PendingVisit Status:?CANCPHONE (Cancelled Phone) * Provider: Porsche Stockton ([facility]), COGNOS ADMINISTRATOR Date: 1 09/10/2023 Generated for Printing/Faxing/eTransmitting on:?06/21/2025 10:27 AM EST
--- OUTSIDE RECORDS SUMMARY | 2024-07-27 02:30 | XMS_ITS ---
Author Organization [facility] Address [address] [place] [address] Care Team Providers Care Afterschool Babysitter Name Role Phone Rodolfo Keller JR, DO Primary Care Provider Radha vailable Cece Xie Unavailable [phone] Elissa Wynne Unavailable [phone] REASON FOR VISIT INCISION CHECK Encounters Encounter Location Date Provider Diagnosis [facility] [address] [facility] [place] [address] [place] [address] 07/27/2024 Elissa Wynne Plan Of Treatment No Information Progress Notes * JUAN FRANCISCO CARMEN MDOB:1965 (59 yo M)Acc No.[id number]:07/27/2024 Patient:?JUAN FRANCISCO CARMEN :?Elissa Vera PADOB:1965???Age:59 Y???Sex:MaleDate:07/27/2024Phone:[phone]:[address] [place] [address]Pcp:Rodolfo Keller JR, DO Subjective: * Chief Complaints: * 1 . INCISION CHECK. * Medical History: Objective: * Vitals: Assessment: Plan: * Treatment: Forms: * Images: * Electronic signature of Elissa Wynne PA-C on 06/21/2025 at 10:30 AM ESTSign off status: Pending * Provider: STEVO Vale Date: 0 07/27/2024 Generated for Printing/Faxing/eTransmitting on:?06/21/2025 10:30 AM EST
--- OUTSIDE RECORDS SUMMARY | 2025-06-07 08:00 | XMS_ITS | Encounter Summary ---
Author Organization [facility] Address [address] [place] [address] Care Team Providers Care Enrollment Coordinator Name Role Phone Lona Germain MD Primary Care Provider [phone] Reason for Visit * ReasonCommentsFollow-up Encounter Details DateTypeDepartmentCare Team (Latest Contact Info)Rgukptrhzgj57/17/2025 8:00 AM ESTOffice Visit [facility] [address] [place] [address] James Ponce PA [address] [place] [address] Acute pain of left knee (Primary Dx); History of left knee replacement Social History Tobacco UseTypesPacks/DayYears UsedDateSmoking Tobacco: NeverSmokeless Tobacco: NeverAlcohol UseStandard Drinks/WeekCommentsYes0 (1 standard drink = 0.6 oz pure alcohol)caffeine intake:2-3 cups/daySex and Gender InformationValueDate Recorded Sex Assigned at BirthNot on fileLegal RnfNgjh8410/03/2022 6:57 PM EDTGender FyskflhjAfng19/15/2023 6:57 PM EDTSexual OrientationNot on filedocumented as of this encounter Progress Notes * STEVO Al - 06/07/2025 8:00 AM EST Images from the original note were not included. Orthopedic Office note: NAME: Mike Phillips : 1965 (EST PT) - YEARLY RECHECK OF (L) TKA 05/16/23 (~ 1 YR, 1 MONTH) XRAY (L) KNEE TODAY, 06/07/25 IN [facility] XRAY 07/27/24 IN [facility] NO BONE SCAN LABS, 02/04/24 @ [facility] (CBC / CRP / SED RATE) S/P PREDNISONE 02/04/24 S/P MDP 12/04/23, 07/01/23 [facility] ; POST-OP DOING WELL. ADMITS SOME DISCOMFORT TO LATERAL ASPECT / IT BAND. SWELLING WITH PROLONGED WB / AMBULATION. N/T TO B/L FEET. ADMITS STIFFNESS. DENIES WEAKNESS / BUCKLING. OCCASIONAL POPPING. DENIES GRINDING. GOOD ROM. WAKING HS. NO PAIN MEDS. DENIES ICING / HEATING / ELEVATING / TOPICALS. HX L1 / L4-5 DECOMPRESSION & FUSION 07/10/24 - (DR. BENSON) - WOULD LIKE TO DISCUSS N/T TO B/L FEET. ADMITS DISCOMFORT TO (R) HIP WITH CERTAIN MOVEMENT. CAN BE SHOOTING TO GROIN. PREVIOUS (R) TKA 06/20/22 & (R) STACY 11/20/22 - DR TOLEDO Knee Musculoskeletal Exam Gait Gait is normal. Inspection Leg length disparity: no discrepancy Left Erythema: none Effusion: none Edema: none Ecchymosis: none Deformity: none Alignment: normal Previous incision: anterior Incision: well-healed Palpation Left Left knee palpation is unremarkable. Increased warmth: none Masses: none Tenderness: present Tenderness comment: latera femoral condyle/ distal IT band Range of Motion Left Left knee range of motion is normal and full. Active extension: 0 Passive extension: 0 Active flexion: 120 Passive flexion: 120 Strength Left Left knee strength is normal. Extension: 5/5. Flexion: 5/5. Instability Left Instability signs: none - stable Varus stress grade: normal Valgus stress grade: normal Neurovascular Left Left knee neurovascular exam is normal. Pulses - PT: normal Posterior tibial: 2+ Capillary refill: warm and well-perfused Neurovascular additional comments: Paresthesias in Little toe left foot present before back surgery, Right foot paresthesias great toe/ sole. Present s/p back surgery- unchanged. No motor deficits nofoot drop. Special Signs Left Left knee special signs are normal. Straight leg raise: normal Patellar apprehension: none General Constitutional: appears stated age Labored breathing: no Psychiatric: normal mood and affect Neurological: alert Skin: intact Lymphadenopathy: none Orders Placed This Encounter Procedures XR knee 1 or 2 views left Reason for exam:: Recheck Procedures Results ICD-10-CM 1. Acute pain of left knee M25.562 2. History of left knee replacement Z96.652 XR knee 1 or 2 views left Assessment & Plan Post-operative status following left total knee arthroplasty Reports that his knees are doing well with no significant new pain or discomfort. Mild tenderness in the lateral aspect of the distal IT band is noted, which is tolerable. Treatment plan: Will continue to monitor the mild tenderness in the lateral aspect of the distal ITband. No immediate intervention is required as the tenderness is tolerable. Patient education provided on signs of worsening symptoms and advised to report any significant changes. Recommended continuation of current activities and exercises that do not exacerbate the tenderness. No medications or referrals needed at this time. Numbness in the right foot Notes numbness in his right foot following back surgery. Has an upcoming appointment with his back specialist to discuss this issue. Treatment plan: Advised to keep the appointment with the back specialist to address the numbness inthe right foot. Patient education provided on potential causes of numbness and the importance of following up with the specialist. No immediate intervention required from this visit. No medications or referrals needed at this time. Anterior hip pain Experiences mild anterior hip pain when lying flat, possibly related to the psoas muscle. The pain is not readily reproducible unless lying flat and moving the leg in a certain position. Will continue to observe these symptoms. If symptoms worsen or new symptoms develop, a follow-up plan will be discussed, potentially involving a psoas injection. Treatment plan: Advised to monitor the anterior hip pain and report any worsening or new symptoms. Discussed the possibility of a psoas injection if symptoms worsen. Patient education provided on thenature of psoas-related pain and potential interventions. Recommended continuation of current activities that do not exacerbate the pain. No medications or referrals needed at this time. Follow-up: 05/2026 PROCEDURE Post-Procedure Diagnosis Status post left total knee arthroplasty Questions answered in laymen terms at the bedside. The diagnosis, home exercise plan and any ongoing restrictions/ recommendations reviewed. If unable to be reached in office, I recommend evaluation at nearest Emergency Room if any symptoms worsened or new symptoms develop for requiring urgent evaluation. Visit was preformed using [employer] pilot speech recognition. * Leti Beckwith MA - 06/07/2025 8:00 AM EST MEDICATIONS: Current Outpatient Medications Medication Instructions allopurinol (ZYLOPRIM) 150 mg, Daily amLODIPine (NORVASC) 5 mg, Daily esomeprazole (NEXIUM) 40 mg lisinopril 20 mg, Daily pravastatin (PRAVACHOL) 40 mg, Daily tamsulosin (FLOMAX) 0.4 mg, Daily ALLERGIES: Allergies[1] MEDICAL HISTORY: Medical History[2] SURGICAL HISTORY: Surgical History[3] FAMILY HISTORY: Family History[4] SOCIAL HISTORY: Social History[5] Depression: Not on file VITALS: Visit Vitals Smoking Status Never [1] No Known Allergies [2] Past Medical History: Diagnosis Date Acute idiopathic gout toe of right foot Alcohol abuse history of alcohol intake above recommended limits Appendicitis Arthritis 07/22/2012 Bronchitis Cataract COVID-19 Depression adjustment reaction with depression during divorce Elevated BP without diagnosis of hypertension GERD (gastroesophageal reflux disease) Hyperlipidemia, mixed History of gout HTN (hypertension) Hyperlipidemia Hypertension 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-L4 Lumbar pain Neuralgia Obesity Pre-diabetes Sinusitis Vertigo [3] Past Surgical History: Procedure Laterality Date APPENDECTOMY BACK SURGERY 1993 COLONOSCOPY 08/13/2013 normal/ [place] COLONOSCOPY 12/2018 normal 10 yrs FOREARM FRACTURE SURGERY Left 1975 JOINT ASPIRATION/INJECTION 09/2012 cervical facet joint injection, C3,4,5,6, left LUMBAR SPINE SURGERY 06/30/2024 L1 / S4/5 DECOMPRESSION / FUSION - DR BENSON TOTAL HIP ARTHROPLASTY Left 11/20/2022 DR TOLEDO TOTAL KNEE ARTHROPLASTY Right 06/20/2022 DR TOLEDO TOTAL KNEE ARTHROPLASTY Left 05/16/2023 DR TOLEDO UMBILICAL HERNIA REPAIR 03/30/2022 URINARY SURGERY 02/2024 UROLIFT VASECTOMY WRIST FRACTURE SURGERY Right [4] Family History Problem Relation Name Age of Onset Kidney failure Mother Brit Diabetes Mother Brit Hypertension Mother Brit Other (hypoglycemia) Father Andrew Other (cervical spine fracture) Father Andrew Gout Father Andrew Diabetes Father Andrew Hypertension Father Andrew Parkinsonism Father Anderw Other (hypoglycema) Father Andrew Other (gout) Father Andrew Diabetes Brother Kumar Diabetes Maternal Grandmother Erva Colon cancer Maternal Grandfather Colon cancer Paternal Grandfather [5] Social History Tobacco Use Smoking status: Never Smokeless tobacco: Never Vaping Use Vaping status: Unknown Substance Use Topics Alcohol use: Yes Comment: caffeine intake:2-3 cups/day Drug use: Never documented in this encounter Plan of Treatment DateTypeDepartmentCare Team (Latest Contact Info)Azkfjbikjpb53/04/2026 8:00 AM ESTClinical Support [facility] [address] [facility] [address] [place] [address] Brooke Gonzalez, [facility] [address] [facility] [address] [place], [place] [address] 09/01/2025 8:00 AM ESTOffice Visit [facility] [address] [facility] [address] [place] [address] Naye Samayoa MD [address] [facility] [address] [place] [address] 06/06/2026 8:00 AM ESTOffice Visit [facility] [address] [facility] [address] [place] [address] James Ponce, STEVO [address] [facility] [place] [address] 07/25/2026 8:00 AM ESTOffice Visit [facility] [place] [address] [facility] [address] [place] [address] James Ponce, PA [address] [facility] [place] [address] documented as of this encounter Procedures Procedure NamePriorityDate/TimeAssociated DiagnosisCommentsXR KNEE 1-2 VIEWS CNZIHzcmnht60/17/2025 7:57 AM EST History of left knee replacement documented in this encounter Results * XR knee 1 or 2 views left (06/07/2025 7:57 AM EST)Anatomical RegionLaterality ModalityLower Extremities, KneeLeftRadiographic ImagingSpecimen (Source) Anatomical Location / LateralityCollection Method / VolumeCollection Time Received Time Narrative 06/07/2025 12:04 PM EST Imaging Result: AP and Lateral of left knee: Surgical position and alignment of prosthetic components without evidence of loosening or wear to femora, tibial or patellar components, The alignment appears to be anatomic. No evidence of accelerated or asymmetric wear to tibial tray or patella button. No evidence of fracture or dislocation. Impression: Unremarkable left total knee arthroplasty Authorizing ProviderResult TypeResult StatusMatthejamison Ponce PAI XR PROCEDURES Final Result documented in this encounter Visit Diagnoses Diagnosis Acute pain of left knee- Primary History of left knee replacement documented in this encounter Care Teams Team MemberRelationshipSpecialtyStart DateEnd Date Lona Germain MD [address] [place] [address] PCP - GeneralFamily Keymwgar70/17/25documented as of this encounter
--- OUTSIDE RECORDS SUMMARY | 2025-06-07 08:00 | XMS_ITS | Encounter Summary ---
Author Organization [facility] Address [address] [place] [address] Care Team Providers Care Yeast Maker Name Role Phone Lona Germain MD Primary Care Provider [phone] Encounter Details DateTypeDepartmentCare Team (Latest Contact Info)Msmyelwbnct98/17/2025 8:00 AM ESTAncillary Procedure [facility] [address] [facility] [address] [place] [address] Social History Tobacco UseTypesPacks/DayYears UsedDateSmoking Tobacco: NeverSmokeless Tobacco: NeverAlcohol UseStandard Drinks/WeekCommentsYes0 (1 standard drink = 0.6 oz pure alcohol)caffeine intake:2-3 cups/daySex and Gender InformationValueDate Recorded Sex Assigned at BirthNot on fileLegal ArsSvxx9210/03/2022 6:57 PM EDTGender OnwrzvmmNmtt27/15/2023 6:57 PM EDTSexual OrientationNot on filedocumented as of this encounter Plan of Treatment DateTypeDepartmentCare Team (Latest Contact Info)Lisvpyudavc07/04/2026 8:00 AM ESTClinical Support [facility] [place] [facility] [address] [place] [address] Brooke Gonzalez, [facility] [address] [address] 09/01/2025 8:00 AM ESTOffice Visit [facility] [address] [place] [address] Naye Samayoa MD [address] [facility] [address] [place] [address] 06/06/2026 8:00 AM ESTOffice Visit [facility] [address] [facility] [address] [place] [address] James Ponce, PA [address] [facility] [place] [address] 07/25/2026 8:[address] [facility] [address] [facility] [address] [place] [address] James Ponce, PA [address] [facility] [place] [address] documented as of this encounter Procedures Procedure NamePriorityDate/TimeAssociated DiagnosisCommentsXR KNEE 1-2 VIEWS EEBTFkieiio09/17/2025 7:57 AM EST History of left knee [...] left total knee arthroplasty Authorizing ProviderResult TypeResult StatusMatthew Isaac Ponce PAIMG XR PROCEDURES Final Result documented in this encounter Visit Diagnoses Not on filedocumented in this encounter Care Teams Team MemberRelationshipSpecialtyStart DateEnd Date Lona Germain MD [address] [place] [address] PCP - GeneralFamily Sdngtelw33/17/25documented as of this encounter
--- OUTSIDE RECORDS SUMMARY | 2025-06-15 08:08 | XMS_ITS | Encounter Summary ---
Author Organization [facility] Address [address] [place] [address] Phone Care Team Providers Care Paper Baler Name Role Phone Unavailable Primary Care Provider Unavailabl e Reason for Referral * Imaging (Routine) - Pending ReviewSpecialtyDiagnoses / ProceduresReferred By ContactReferred To ContactRadiology Diagnoses Hyperlipidemia, unspecified Essential (primary) hypertension Procedures CT cardiac scoring wo IV contrast Alicia Germain DO [address] [place] [address] Phone: tel: Referral IDStatusM[facility] DateExpiration DateVisits RequestedVisits [id number] Review Perform Procedure Reason for Visit * Imaging (Routine) - Pending ReviewSpecialtyDiagnoses / ProceduresReferred By ContactReferred To ContactRadiology Diagnoses Hyperlipidemia, unspecified Essential (primary) hypertension Procedures CT cardiac scoring wo IV contrast Alicia Germain DO [address] [place] [address] Phone: tel: Referral IDStatusReasonStart DateExpiration DateVisits RequestedVisits [id number] Review Perform Procedure Encounter Details DateTypeDepartmentCare Team (Latest Contact Info)Jqprgeljtlq39/25/2025 8:08 AM EST - 06/15/2025 11:59 PM ESTHospital Encounter [facility] [address] [place] [address] Hyperlipidemia, unspecified; Essential (primary) hypertension Discharge Disposition: Home Social History Tobacco UseTypesPacks/DayYears UsedDateSmoking Tobacco: Never AssessedSex and Gender InformationValueDate RecordedSex Assigned at BirthNot on fileLegal Sex Male06/14/2025 8:56 AM ESTGender IdentityNot on fileSexual OrientationNot on filedocumented as of this encounter Plan of Treatment Not on file documented as of this encounter Procedures Procedure NamePriorityDate/TimeAssociated DiagnosisCommentsCT CARDIAC SCORING WO IV FHSMMTVKMvxiwci69/25/2025 8:35 AM EST Hyperlipidemia, unspecified Essential (primary) hypertension documented in this encounter Results * CT cardiac scoring wo IV contrast (06/15/2025 8:35 AM EST)Anatomical Region LateralityModalityThoracic, ChestComputed TomographySpecimen (Source) Anatomical Location / LateralityCollection Method / VolumeCollection Time Received Time06/15/2025 2:36 PM EST06/15/2025 2:36 PM EST Impressions 06/15/2025 2:35 PM EST 1. Coronary artery calcium score of 42.7 *. 2. Diffuse hypoattenuation of the hepatic parenchyma suggesting steatosis. Correlate with hepatic function studies. 3. 3 mm right upper lobe nodule. Incidental Finding: ??A non-calcified pulmonary nodule / multiple non-calcified pulmonary nodules measuring less than 6 mm, likely benign. ?? Instructions: ??No further follow-up is required, however, if the patient has high risk factors for primary lung malignancy, follow-up noncontrast CT scan chest in 12 months may be obtained. (Deniz Madsen et al., Guidelines for management of incidental pulmonary nodules detected on CT images: From the Fleischner Society 2017, Radiology. 2017 Yoandy;284 (1):228-243.) FLEISCHNER.ACR.IF.1 ? *Coronary Artery Calcium Gated and Nongated Agatston score Score ?Risk 0 ? Very low 1-99 ?Mildly increased 100-299 ? Moderately increased >300 Moderate to severely increased ?? Camilo et al. JCCT 2016 (http://dx.doi.org/10.1016/j.jcct.2016.11.003) ?? MCCLELLAND 10-Year CHD Risk with Coronary Artery Calcification can be calcuate using link below ?? [email or web address] ?? Alexandre vasquez al. JACC 2015 (http://dx.doi.org/10.1016/j.j acc.2015.08.035) ?? MACRO: None. ?? Signed by: Stephenie White 06/15/2025 2:35 PM Dictation workstation: ?? [id number] Narrative 06/15/2025 2:35 PM EST Interpreted By: Stephenie White, STUDY: CT CARDIAC SCORING WO IV CONTRAST; ??06/15/2025 8:35 am ?? INDICATION: Signs/Symptoms:CT CARDIAC SCORING WO. ?? COMPARISON: None. ?? ACCESSION NUMBER(S): [id number] ?? ORDERING CLINICIAN: ALICIA GERMAIN ?? TECHNIQUE: Using prospective ECG gating, CT scan of the coronary arteries was performed without intravenous contrast. Coronary calcium scoring ??was performed according to the method of Agatston. ?? FINDINGS: The score and distribution of calcium in the coronary arteries is as follows: ?? LM 0 LAD 42.7 LCx 0 RCA 0 ?? Total ?? 0 ? The visualized mid/lower ascending thoracic aorta measures 3.6 cm in diameter. The heart is normal in size. No pericardial effusion is present. ?? No gross evidence of mediastinal or hilar lymphadenopathy or masses is identified. The visualized segments of the lungs are normally expanded. 3 mm right upper lobe nodule. Diffuse hypoattenuation of the hepatic parenchyma suggesting steatosis. Correlate with hepatic function studies. ?? Authorizing ProviderResult TypeResult StatusJeesperanza Germain [facility] CT PROCEDURESFinal Result documented in this encounter Visit Diagnoses Diagnosis Hyperlipidemia, unspecified Essential (primary) hypertension Unspecified essential hypertension documented in this encounter
--- OUTSIDE RECORDS SUMMARY | 2025-06-21 10:28 | XMS_ITS | Clinical Summary ---
Author Organization [facility] Address [address] [place] [address] Phone Care Team Providers Care Hotel Sales Manager Name Role Phone Unavailable Primary Care Provider Unavailabl e Encounters DateTypeDepartmentCare SkpuKclitjyrsrp87/25/2025 8:08 AM EST - 06/15/2025 11:59 PM ESTHospital Encounter [address] [phone] Hyperlipidemia, unspecified; Essential (primary) hypertension Discharge Disposition: Home06/14/2025Travelfrom Last 3 Months Social History Tobacco UseTypesPacks/DayYears UsedDateSmoking Tobacco: Never AssessedSex and Gender InformationValueDate RecordedSex Assigned at BirthNot on fileLegal Sex Male06/14/2025 8:56 AM ESTGender IdentityNot on fileSexual OrientationNot on file Plan of Treatment Health MaintenanceDue DateLast DoneCommentsCT Oddhxittzemp1963FIT 1963HIV Oyzbebite1963Lipid Panel1965 9337Oygobtyvbjfrc1963 Yearly Adult Lcjtpypi1963MMR Vaccines (1 of 1 - Standard series)1964 Hepatitis C Nbtmjrnyx06/09/1981PSA Prostate Cancer Cmyofsmyu60/09/2013 Pneumococcal Vaccine (1 of 1 - PCV)2013Zoster Vaccines (1 of 2)2013 Influenza Vaccine (#1)510/, 06/03/2018COVID-19 Vaccine (1 - 2024- season)2025FIT-DNA (Cologuard)/olonoscopy Colorectal Cancer Fnyjxlqji55/20/2029DTaP/Tdap/Td Vaccines (2 - Td or Tdap)RSV High Risk: (Elderly (60+) or Population) (1 - 1-dose 75+ series)2038HIB VaccinesAged OutNo longer eligible based on patient's age to complete this topicHPV VaccinesAged OutNo longer eligible based on patient's age to complete this topicHepatitis A VaccinesAged OutNo longer eligible based on patient's age to complete this topic Hepatitis B VaccinesAged OutNo longer eligible based on patient's age to complete this topicIPV VaccinesAged OutNo longer eligible based on patient's age to complete this topicMeningococcal VaccineAged OutNo longer eligible based on patient's age to complete this topicRotavirus VaccinesAged OutNo longer eligible based on patient's age to complete this topic Procedures Procedure NamePriorityDate/TimeAssociated DiagnosisCommentsCT CARDIAC SCORING WO IV BGQCXPFTCpwvlrt82/25/2025 8:35 AM EST Hyperlipidemia, unspecified Essential (primary) hypertension from Last 3 Months Results * CT cardiac scoring wo IV [...] Fleischner Society 2017, Radiology. 2017 Yoandy;284 (1):228-243.) PRESTON.ACR.IF.1 ? *Coronary Artery Calcium Gated and Nongated Agatston score Score ?Risk 0 ? Very low 1-99 ?Mildly increased 100-299 ? Moderately increased >300 Moderate to severely increased ?? Camilo et al. JCCT 2016 (http://dx.doi.org/10.1016/j.jcct.2016.11.003) ?? M[place] 10-Year CHD Risk with Coronary Artery Calcification can be calcuate using link below ?? Https://[email or web address].[email or web address] ?? Alexandre et al. JACC 2015 (http://dx.doi.org/10.1016/j.j acc.2015.08.035) ?? MACRO: None. ?? Signed by: Stephenie White 06/15/2025 2:35 PM Dictation workstation: ?? [id number] Narrative 06/15/2025 2:35 PM EST Interpreted By: Stephenie White, STUDY: CT CARDIAC SCORING WO IV CONTRAST; ??06/15/2025 8:35 am ?? INDICATION: Signs/Symptoms:CT CARDIAC SCORING WO. ?? COMPARISON: None. ?? ACCESSION NUMBER(S): [id number] ?? ORDERING CLINICIAN: ALICIA GERMAIN ?? TECHNIQUE: [...] studies. ?? Authorizing ProviderResult TypeResult StatusJeesperanza Germain [facility] CT PROCEDURESFinal Result from Last 3 Months Insurance * Guarantor: Jordan Phillips TypeRelation to PatientDate of [facility] AddressPersonal/ApcfywNzlc[address] [place] [address] * Guarantor: Jrodan Phillips TypeRelation to PatientDate of BirthPhoneBilj.w. [facility] AddressPersonal/LmxlqtIdqi[address] [place] [address]
--- OUTSIDE RECORDS SUMMARY | 2025-06-21 10:28 | XMS_ITS | Clinical Summary ---
Author Organization [facility] Healthcare Address [address] [place] [address] Care Team Providers Care Elderly Sitter Name Role Phone Lona Germain MD Primary Care Provider [phone] Allergies No known active allergies Medications MedicationSigDispense [...] mg by mouthActive Active Problems ProblemNoted DateDiagnosed DpaaZwrjecwtb59/17/2025 Overview (02/22/2025): Uses nexium prn Dietary counseling and qvsquktpnmnv08/17/2025PH with urinary obstruction 02/01/2025ED (erectile dysfunction)02/01/2025Feeling of incomplete bladder qbczebfo20/14/2025Increased prostate specific antigen (PSA) bhlxobsw95/14/2025 Type 2 diabetes nnicmxit52/14/2025Type 2 diabetes mellitus with diabetic neuropathy, without long-term current use of fuazwkt6102/01/2025Lumbar stenosis with neurogenic bytcbvblhuep51/10/2024cute idiopathic gout of left ankle 04/22/2023rthritis of knee, left04/22/2023rthritis of right knee04/22/2023 Arthritis of right hip04/22/2023Osteoarthritis of right hip04/22/2023rtificial knee joint adexcpv9404/22/2023Incarcerated umbilical licpdn0704/22/2023Overweight (BMI 25.0-29.9)04/22/2023ain in right knee04/22/2023eriumbilical pain 04/22/2023rimary bdkjhfuttxisnd37/02/2023Status post total hip replacement, right04/22/2023Status post total knee ipsajqshsjs64/02/2023Family history of diabetes xvsaqzse55/21/3000Fitrhavyho78/21/5973Qaozaqkeixi17/21/2021rimary localized osteoarthritis of pelvic region and thigh06/24/2019Generalized anxiety luzczqyr44/28/2018Gouty gezaslkyp74/14/2018Primary yjphuauyrady62/07/2018Primary osteoarthritis of left knee10/09/2016Lumbago-sciatica due to displacement of lumbar intervertebral disc10/08/2016Mixed wzvulxzbgfsaci12/05/2017 Gastroesophageal reflux disease without rayidntfhjp16/02/2017Other chronic pain 09/20/2016 Encounters DateTypeDepartmentCare MrwmHkaybjdowmb74/17/2025 8:00 AM ESTAncillary Procedure [facility] [address] [place] [address] 06/07/2025 8:00 AM ESTOffice Visit [facility] [address] [place] [address] James Ponce PA Acute pain of left knee (Primary Dx); History of left knee afkiimkceom34/17/2025amboo flowsheet [facility] [address] [place] [address] James Ponce PA 06/07/2025Travelfrom Last 3 Months [...] Recorded Sex Assigned at BirthNot on fileLegal YwuTlel2210/03/2022 6:57 PM EDTGender RgmhaklnAaqj52/15/2023 6:57 PM EDTSexual OrientationNot on file Last Filed Vital Signs Vital SignReadingTime TakenCommentsBlood Kjoutmoz733/6908 8:23 AM EDT Fsrkz463802/02/2025 8:02 AM EDTTemperature--Respiratory Rate--Oxygen Saturation-- Inhaled Oxygen Concentration--Qlmjzq302 kg (245 lb)02/23/2025 8:23 AM EDTHeight 188 cm (6' 2 )02/23/2025 8:23 AM EDTBody Mass Index31.4608 8:23 AM EDT Plan of Treatment DateTypeDepartmentCare Team (Latest Contact Info)Bmcunuybyzq00/04/2026 8:00 AM ESTClinical Support [facility] [place] [facility] [address] [place] [address] Brooke Gonzalez, [facility] [address] [facility] [place] [place] [address] 09/01/2025 8:00 AM ESTOffice Visit [facility] [address] [facility] [address] [place] [address] Naye Samayoa MD [address] [facility] [address] [place] [address] 06/06/2026 8:00 AM ESTOffice Visit [facility] [address] [facility] [address] [place] [address] James Ponce, PA [address] [place] [address] 07/25/2026 8:00 AM ESTOffice Visit [facility] [address] [facility] [address] [place] [address] James Ponce, PA [address] [place] [address] Health MaintenanceDue DateLast DoneCommentsCT Uvavnbiqpoqd1963FIT 1963FOBT1963 0471Ltypnphmiybrj1963COVID-19 Vaccine ( season)504/12/2020, 10/04/2020Influenza Vaccine (#1)2025 05/09/2023, 06/03/2018FIT-DNA/5473Yanatrcclmr59/20/2029 01/08/2019, 08/13/2013Colorectal Cancer Olbbsocyg41/20/2029Pneumococcal Vaccine: Pediatrics (0 to 5 Years) and At-Risk Patients (6 to 64 Years)Aged OutNo longer eligible based on patient's age to complete this topic Procedures Procedure NamePriorityDate/TimeAssociated DiagnosisCommentsXR KNEE 1-2 VIEWS DFQDSoxflpz39/17/2025 7:57 AM EST History of left knee replacement CJXSGHQDVFPSscgvbi92/20/2019 12:00 PM EDT from Last 3 Months [...] Narrative 01/08/2019 12:00 PM EDT PERFORMED AT [facility] LOCATION:[id number] Procedure Note CONVERSION, GENERIC - 12/05/2022 PERFORMED AT [facility] LOCATION:[id number] Authorizing ProviderResult TypeResult StatusNavdeep Amador MDENDOSCOPY PROCEDURE ORDERABLESFinal Result from Last 3 Months or Most Recently Relevant to Health Maintenance Insurance Care Teams Team MemberRelationshipSpecialtyStart DateEnd Date Lona Germain MD [address] [place] [address] PCP - GeneralFamily Zijkdyhp68/17/25
--- OUTSIDE RECORDS SUMMARY | 2025-06-21 10:28 | XMS_ITS | Encounter Summary ---
Author Organization [facility] Address [address] [place] [address] Phone Care Team Providers Care Stock Handler Floorperson Name Role Phone Unavailable Primary Care Provider Unavailabl e Encounter Details DateTypeDepartmentCare Team (Latest Contact Info)Lenadgwdoil51/24/2025Travel Social History Tobacco UseTypesPacks/DayYears UsedDateSmoking Tobacco: Never AssessedSex and Gender InformationValueDate RecordedSex Assigned at BirthNot on fileLegal Sex Male06/14/2025 8:56 AM ESTGender IdentityNot on fileSexual OrientationNot on filedocumented as of this encounter Plan of Treatment Not on file documented as of this encounter Visit Diagnoses Not on filedocumented in this encounter
--- OUTSIDE RECORDS SUMMARY | 2025-06-21 10:29 | XMS_ITS | Patient Health Record ---
Author Organization [facility] Address [address] [place], [place] [id number] Care Team Providers Care Cobol Application Developer Name Role Phone Adiel Bravo Primary Care Provider Allergies No Known Allergies Reason For Referral No Information Medications Medication SIG (Take, Route, Frequency, Duration) Notes Start Date End Date Status Vpbjklahe-Qxufwcnu-IY 30-2-10 MG/5ML Syr up 5 mL as [...] a day; Duration: 30 days 05/20/2023Not-Taking/PRNFish Oil Wild Horse-3 1000 MG Capsule1 capsule Orally Once a [...] Vaccine Route Administration Date Status Comme nts *Rroqpjihp-Njrywacdk-Nfqgk te IM Intramuscular 05/09/2023 Administered *Tdap (Adacel)-PrivateIM Yjhjdsmgzmush53/19/2023dministered Social History Tobacco Use: Social History Observation [...] schoolpatient entered dataWhat 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 Stress is when someone feels tense, nervous, anxious, or can't sleep at nightbecause their mind is troubledA little bitpatient entered dataIn the past year have you spent more than 2 nights in a row in a fdc, senior care, snf center, orjuvenile correctional facility?Nopatient entered dataAre you a refugee?Nopatient entered dataWhat country are you from?[place] Statespatient entered dataDo you feel physically and emotionally safe where you currently live?Yespatient entered dataIn the past year, have you been afraid of your partner or ex-partner?Nopatient entered dataPRAPARE Score:1PCMH and UDS Demographics Social CellAegis DeviceserNotesPridekalb regional medical center Care Medical Home QuestionsDo you have any barriers to learning?Nonepatient entered dataWhat is your preferred method of learning?Readingpatient entered dataHow often do you need to have someone help you read instructions?Neverpatient entered dataDrugs/Alcohol/Caffeine: PosterouserNotesCAGE-AID Questionnaire (2018 Edition)Have you ever felt that [...] rid of a hangover?No patient entered dataCAGE-AID Gijcy2ImxnlgibfeeaqpSijrjnekLtwukxo Use:PosterouserNotesTobacco Use/SmokingTobacco use:nonsmokerpatient entered data Problems Problem Type SNOMED Code ICD Code Onset Dates Problem Status W/U Status Risk Notes Problem Hyperlipidemia (10966226) Hyperlipidemia (E78.5) ActiveconfirmedProblemType 2 diabetes mellitus (81225785)Type 2 diabetes mellitus (E11.9)ActiveconfirmedProblemHypertension (90628236)HTN (hypertension) (I10)ActiveconfirmedProblemHypertriglyceridemia (368085255)Hypertriglyceridemia (E78.1)ActiveconfirmedProblemErectile dysfunction (disorder) (159068513)Erectile dysfunction, unspecified erectile dysfunction type (N52.9)Activeconfirmed Plan Of Treatment No Information Insurance Providers Payer Name Payer Address Payer Phone Subscriber Number Group Number Insured Name Patient Relationship to Insured Coverage Start Date Coverage End Date Sandy Bernstein Commercial [address] [place] [address] [id number] Mike Phillips Self - patient is the insured 3 Medical (General) History Medical History History ICD Code HTN (hypertension) I10 Hyperlipidemia E78.5 Type 2 diabetes mellitus E11.9 Gout M10.9 Surgical History Surgery Date(Month/Year) Hernia Surgery 02/2022 R Knee Replacement 05/2022 R Hip Replacement 11/2022 left knee replacement 04/2023 Hospitalization History Reason Date(Month/Year) see above
--- OUTSIDE RECORDS SUMMARY | 2025-06-21 10:29 | XMS_ITS | Clinical Summary ---
Author Organization [employer] [facility] tem Address [id number] [place] [address] Care Team Providers Care Mallet Cutter Name Role Phone Adiel Law [facility] Primary Care Provider [phone] Allergies No known active allergies Medications MedicationSigDispense [...] standard drink = 0.6 oz pure alcohol)occassionalChildcareAnswerDate OlqxnrouDnqlixghgPstitfa93/12/2019 EmploymentAnswerDate UknpoxtkSkfrsxjqrsUyvcvct55/12/2019Purpose - LifeAnswerDate RecordedPurpose and direction in nbnvAmyrqsn62/11/2021ex and Gender Information ValueDate RecordedSex Assigned at AmiurIvye79/30/2025 1:04 PM EDTLegal SexMale 02/24/2015 11:37 AM EDTGender IndapnmcOofj41/30/2025 1:04 PM EDTSexual BazfijhwjweEinmmykz90/30/2025 1:04 PM EDT Last Filed Vital Signs Vital SignReadingTime TakenCommentsBlood Loofffdt972/9301/08/2019 8:19 AM EDT Mekmm312401/08/2019 8:19 AM BMQOlrdmluxlef40.4 ??C (97.6 ??F)01/08/2019 7:20 AM EDTRespiratory Sbgh148401/08/2019 8:19 AM EDTOxygen Bbltsiayuw58%01/08/2019 8:19 AM EDTInhaled Oxygen Concentration--Wbmmrw272.4 kg (250 lb)01/08/2019 7:20 AM HSOPrjnrv337 cm (6' 4 )01/08/2019 7:20 AM EDTBody Mass Index30.43001/08/2019 7:20 AM EDT Plan of Treatment Health MaintenanceDue DateLast DoneCommentsDepression Taczxhvqv92/09/1975Tobacco Jlzzvjmai85/09/1975Adult BMI Tyvtpfvrf36/09/1981DTaP,Tdap and Td Vaccines (1 - Tdap)1982Zoster (Shingles) Vaccine (1 of 2)2013COVID-19 Vaccine (3 - 2024- season)504/12/2020, 10/04/2020Influenza Gxhujdq0103/22/2025 06/03/2018, 06/03/2018RSV ( or age 60+ yrs) (1 - 1-dose 75+ series) 2038 [employer] Not on file Care Teams Team MemberRelationshipSpecialtyStart DateEnd Date Adiel aLw APRN-ENGINEER/CONDUCTOR PCP - GeneralPrimary Care Bnzutbst37/2/23
--- OUTSIDE RECORDS SUMMARY | 2025-06-21 10:30 | XMS_ITS | Encounter Summary ---
Author Organization [facility] Address [address] [place] [address] Care Team Providers Care Journeyman Machinist Name Role Phone Lona Germain MD Primary Care Provider Encounter Details DateTypeDepartmentCare Team (Latest Contact Info)Smayoxfligr45/17/2025amboo flowsheet [facility] [address] [facility] [address] [place] [address] James Ponce, STEVO [address] [place] [address] Social History Tobacco UseTypesPacks/DayYears UsedDateSmoking Tobacco: NeverSmokeless Tobacco: NeverAlcohol UseStandard Drinks/WeekCommentsYes0 (1 standard drink = 0.6 oz pure alcohol)caffeine intake:2-3 cups/daySex and Gender InformationValueDate Recorded Sex Assigned at BirthNot on fileLegal PmnTehd1510/03/2022 6:57 PM EDTGender LvmkjleaXhlk22/15/2023 6:57 PM EDTSexual OrientationNot on filedocumented as of this encounter Plan of Treatment DateTypeDepartmentCare Team (Latest Contact Info)Qvolvzwlvsb46/04/2026 8:00 AM ESTClinical Support [facility] [place] [facility] [address] [place] [address] Brooke Gonzalez, [facility] [address] [place] [address] 09/01/2025 8:00 AM ESTOffice Visit [facility] [place] [facility] [address] [place] [address] Naye Samayoa MD [address] [place] [address] 06/06/2026 8:00 AM ESTOffice Visit [facility] [place] [facility] [address] [facility] [address] [place] [address] James Ponce, PA [address] [place] [address] 07/25/2026 8:00 AM ESTOffice Visit [facility] [address] [facility] [address] [place] [address] James Ponce, PA [address] [place] [address] documented as of this encounter Visit Diagnoses Not on filedocumented in this encounter Care Teams Team MemberRelationshipSpecialtyStart DateEnd Date Lona Germain MD [address] [place] [address] PCP - GeneralFamily Htupbsij61/17/25documented as of this encounter
--- OUTSIDE RECORDS SUMMARY | 2025-06-21 10:30 | XMS_ITS | Encounter Summary ---
Author Organization [facility] Address [address] [place] [address] Care Team Providers Care Supervisor Nuclear Medicine Name Role Phone Lona Germain MD Primary Care Provider [phone] Encounter Details DateTypeDepartmentCare Team (Latest Contact Info)Trjwmllofrg47/17/2025Travel Social History Tobacco UseTypesPacks/DayYears UsedDateSmoking Tobacco: NeverSmokeless Tobacco: NeverAlcohol UseStandard Drinks/WeekCommentsYes0 (1 standard drink = 0.6 oz pure alcohol)caffeine intake:2-3 cups/daySex and Gender InformationValueDate Recorded Sex Assigned at BirthNot on fileLegal GbvEmnx1410/03/2022 6:57 PM EDTGender HrqtlckzKiup58/15/2023 6:57 PM EDTSexual OrientationNot on filedocumented as of this encounter Plan of Treatment DateTypeDepartmentCare Team (Latest Contact Info)Iikyvzecdkp73/04/2026 8:00 AM ESTClinical Support [facility] [place] [facility] [address] [place] [address] Brooke Gonzalez, [facility] [address] [place] [address] 09/01/2025 8:00 AM ESTOffice Visit [facility] [place] [facility] [address] [place] [address] Naye Samayoa MD [address] [place] [address] 06/06/2026 8:00 AM ESTOffice Visit [facility] [address] [place] [address] James Ponce, PA [address] [facility] [place] [address] 07/25/2026 8:00 AM ESTOffice Visit [facility] [address] [facility] [address] [place] [address] James Ponce, PA [address] [place] [address] documented as of this encounter Visit Diagnoses Not on filedocumented in this encounter Care Teams Team MemberRelationshipSpecialtyStart DateEnd Date Lona Germain MD [address] [place] [address] PCP - GeneralFamily Zugubwzq20/17/25documented as of this encounter
--- OUTSIDE RECORDS SUMMARY | 2025-06-21 10:30 | XMS_ITS | Clinical Summary ---
Author Organization [facility] Address [address] [facility], [address] [place] [address] Care Team Providers Care Director Of Casino Name Role Phone David Gonzalez MD Primary Care Provider [phone] Allergies No known active allergies Medications MedicationSigDispense [...] Safety Domain Source: IP Abuse ScreeningAnswerDate RecordedPhysical muzqiYhsqat65/10/2024Verbal sgisjSmfwqk29/10/2024Emotional lewksNtyqnr50/10/2024Financial uvpzbItbapp61/10/2024Sexual ofmxjRyzoci01/10/2024 Sex and Gender InformationValueDate RecordedSex Assigned at BirthNot on file Legal RbxGyha3608/31/2012 9:06 AM ESTGender IdentityNot on fileSexual Orientation Not on file Last Filed Vital Signs Vital SignReadingTime TakenCommentsBlood Klhwpley834/7407/02/2024 11:55 AM EST Hvobn538307/02/2024 11:55 AM WNXAdlinxlfobb75.9 ??C (98.4 ??F)07/02/2024 11:55 AM ESTRespiratory Tnve777609/02/2023 11:55 AM ESTOxygen Kspecwynvc42%07/02/2024 11:55 AM ESTInhaled Oxygen Concentration--Jwzufn800 kg (247 lb)06/30/2024 11:43 AM EST Dntwfl248.5 cm (6' 3 )06/30/2024 11:43 AM ESTBody Mass Index30.8706/30/2024 11:43 AM EST Plan of Treatment Health MaintenanceDue DateLast CecgIcazjzylQgklpg28/09/1973Depression Screen 1975HIV qffyfi8606/29/1978Hepatitis C nwvdja9106/29/1981Diabetes screen 06/29/19982646Hgdjlggdhyc88/09/2008Colorectal Cancer Vrahdk4306/29/2008FIT/FOBT: Average risk2008Fecal-DNA (Cologuard): Average risk2008 Sigmoidoscopy/CT iiqfflqqzgkx92/09/2008Pneumococcal 50+ years Vaccine (1 of 1 - [...] 5ml Spine Dura Hydrgel Polyeth Glycol - [id number] Implanted:Qty: 1 on 06/30/20[facility] Spine LumbarINTEGRA LIFESCIENCES SUMEET-[id number] / / [id number] Screw 5.5-6.0 - [id number] Implanted:Qty: 6 on 06/30/2024 [facility]: Spine LumbarSURGALIGN SPINE TECHNOLOGIES INC [id number] / / Screw Poly Solid 7.5x45 - [id number] Implanted:Qty: 2 on 06/30/2024 [facility]: Spine LumbarSURGALIGN SPINE TECHNOLOGIES INC [id number] / / Screw Poly Solid 7.5x50 - [id number] Implanted:Qty: 4 on 06/30/2024 by [facility]: Spine LumbarSURGALIGN SPINE TECHNOLOGIES INC [id number] / / Gene Ti Prebent 5.5x60 - [id number] Implanted:Qty: 1 on 06/30/2024 by [facility]: Spine LumbarSURGALIGN SPINE TECHNOLOG[employer] INC [id number] / / Gene Ti Prebent 5.5x65 - [id number] Implanted:Qty: 1 on 06/30/2024 by [facility]: Spine LumbarSURGALIGN SPINE [employer]CHNOLOGIES INC [id number] / / Insurance Advance Directives * Full Code (Latest Code Status on File) Date ActivatedDate OckkffskurlRlkdinpf57/10/2024 11:29 AM07/02/2024 7:07 PM NameRelationshipHealthcare Agent RelationshipCommunicationTomi [facility] CenterSpnew[facility] Primary Decision Maker* Care Teams Team MemberRelationshipSpecialtyStart DateEnd Date David Gonzalez MD [address] [place] [address] [facility] Vussvdri17/6/24
--- OUTSIDE RECORDS SUMMARY | 2025-06-21 10:32 | XMS_ITS | CCD ---
Author Organization [facility] Care Team Providers Care Budget Examiner Name Role Phone DO Elmo Vela Attending Provider [phone] MIGUEL ANGEL, DR SYED Admitting Unavailable MIGUEL [...] Provider Alejandro Gimenez MD Primary Care Provider [phone] BEATRIZ BYNUM Referring Unavailable ALEJANDRO GIMENEZ Primary Care Unavailable KELLEY, SELVON F Referring Unavailable ALEJANDRO GIMENEZ Primary Care Unavailable KELLEY, SELVON F Admitting Unavailable KELLEY, SELVON F Attending Unavailable ALJEANDRO GIMENEZ Primary Care Unavailable ERIC, OLUREMI A Consulting Unavailable BEATRIZ BYNUM Referring Unavailable ALEJANDRO GIMENEZ Primary Care Unavailable COLT MICHELLE Primary Care Physician [phone] Colt Michelle MD Primary Care Provider Leelee [...] HUDSON Fisher Attending Unavaila anaya KELLER JR., HUDSON Fisher Attending Unavaila IVAN Avila Attending Unavailable DANNIE MARCUM Referring Unavailable IVAN BA Attending Unavailable JR. ARIANNA, HUDSON Fisher Attending Unavaila MARCI Galloway Attending Unavailable MARCI PNOCE Referring Unavailable Colt Michelle MD Primary Care Provider Allergies Allergy ClassificationReported Allergen(s)Allergy TypeDate of OnsetReaction(s) Facility (2 sources)No Known Medication Allergies; Translations: [No Known Medication Allergies]Propensity to adverse reactions (disorder)[facility] Rep[facility] Medications Current Medications MedicationDrug Class(es)DatesSig (Normalized)Sig (Original)acetaminophen 325 mg / HYDROcodone bitartrate 5 mg oral tablet (1 source)Opioid AgonistStart: 59-18-6738Lntat 325 mg-5 mg oral tablet 1 tab(s), Oral, q6hr, 10 tab(s), Refill(s) 0, Take 1 tablet 1 hour prior to the procedure. Then take as needed for pain.[facility] #[id number] Start Date: 01/17/24 Status: Orde redacetaminophen 325 mg / oxyCODONE hydrochloride 5 mg oral tablet (1 source)Opioid AgonistStart: 07-02-2024 End: 43-80-1284blyQFRQXR-acetaminophen (PERCOCET) 5-325 MG per tablet Indications: Lumbar stenosis with neurogenicclaudication Take 1 tablet by mouth every 6 hours as needed for Pain for up to 7 days. Intended supply: 7 days. Take lowest dose possible to manage pain Max Daily Amount: 4 tablets 28 tablet 07/02/2024 07/09/2024 ActiveamLODIPine 5 mg oral tablet (20 sources)Dihydropyridine Calcium Channel BlockerStart: 85-61-8782rwxv 1 tablet by mouth once dailyamLODIPine (Norvasc) 5 MG tablet Take 5 mg by mouth Daily 03/09/2024 Active End: 17-12-7526zrhh 1 tablet by mouth in the morningamLODIPine (Norvasc) 10 MG tablet Take 10 mg by mouth in the morning. 02/01/2025 Discontinued (Therapy completed)atorvastatin 20 mg oral tablet (20 sources)HMG-CoA Reductase Inhibitor End: 39-07-8102uqow 1 tablet by mouth in the morningatorvastatin (Lipitor) 20 MG tablet Take 20 mg by mouth in the morning. 02/02/2025 Discontinued (Therapy completed)cephalexin 500 mg oral capsule (9 sources)Cephalosporin AntibacterialStart: 04-27-2024 End: 89-31-6707upvs 4 tablets by mouth every hourcephalexin (Keflex) 500 MG capsule TAKE 4 TABLETS BY MOUTH ONE HOUR prior to appointment 04/27/2024 07/27/2024 Discontinuedcyclobenzaprine hydrochloride 10 mg oral tablet (3 sources)Muscle RelaxantStart: 07-01-2024 End: 86-70-7878nuxn 1 tablet by mouth three times daily as needed for muscle spasmscyclobenzaprine (FLEXERIL) 10 MG tablet Take 1 tablet by mouth 3 times daily as needed for Muscle spasms 30 tablet 07/02/2024 07/12/2024 ActiveStart: 06-30-2024 End: 57-86-0685ckot 10 mg by mouth every twelve hours as needed for muscle gkupuc28 mg, Oral, EVERY 12 HOURS PRN, Starting on Sat06/30/24 at 1753, Until Sat07/01/24 at 0646, Muscle spasms, Post-opdiazePAM 10 mg oral tablet (1 source)BenzodiazepineStart: 28-63-0352Daxfwt 10 mg Tab 10 mg = 1 tab(s), Oral, Once, PRN for anxiety, Take 1 hour prior to the procedure., # 1 tab(s), Refills(s) 0, Pharmacy: [facility] #[id number] Start Date: 01/17/24 Status: Ordered esomeprazole 40 mg delayed release oral capsule (20 sources)Proton Pump Inhibitor End: 21-79-1984jtaunljvjjad (NexIUM) [address] capsule Take 40 mg by mouth Active morphine (PF) injection 2 mg (1 source)Start: 05-88-7737gfzvgfoz (PF) injection 2 mgondansetron (ZOFRAN-ODT) disintegrating tablet 4 mg (1 source)Start: 64-46-3705ijipnosiamc (ZOFRAN-ODT) disintegrating tablet 4 mg oxybutynin chloride 5 mg oral tablet (1 source)Cholinergic Muscarinic AntagonistStart: 39-72-3918dajp 1 tablet by mouth three times daily as neededoxybutynin 5 mg Tab 5 mg = 1 tab(s), Oral, TID, PRN Urinary discomfort, # 60 tab(s), Refills(s) 0, Pharmacy: [email or web address][id number], 190, cm, 02/10/24 9:23:00 EDT, Height/Length Dosing, 119, kg, 02/10/24 9:23:00 EDT, Weight Dosing Start Date: 02/10/24 Status: OrderedoxyCODONE (1 source)Opioid AgonistStart: 89-60-5667lejEKTETK (ROXICODONE) immediate release tablet 5 mgpolyethylene glycol 3350 18850 mg powder for oral solution (1 source)Osmotic LaxativeStart: g, Oral, DAILY, First dose on Sat06/30/24 at 1815, Until Discontinued, Stir and dissolve one packet of powder (17 g) in any 4 to 8 ounces of beverage (cold, hot or room temperature) then drink, Post-opsodium phosphate, dibasic 35.5 mg/ml / sodium phosphate, monobasic 96.4 mg/ml enema (1 source)Start: 88-54-2855wzeslsgeyx hydrochloride 0.4 mg oral capsule (20 sources)alpha-Adrenergic BlockerStart: 76-37-5149whgp 1 capsule by mouth twice dailytamsulosin 0.4 mg Cap 0.4 mg = 1 cap(s), Oral, BID, # 30 cap(s), Refills(s) 11, [facility]acy: [facility], 192, cm, 10/28/24 12:43:00 EDT, Height/Length Dosing, 113.1, kg, 10/28/24 12:43:00 EDT, Weight Dosing Start Date: 10/28/24 Status: Ordered Quantity: 30.0 Unit: cap(s) Repeat number: 12 Indications: Benign prostatic hyperplasia with lower urinary tract symptoms; Feeling of incompletebladder emptying;Start: 12-02-2023 End: 88-03-3997loutijvbwr 0.4 mg Cap 90 EA, 0 Refill(s), take 1 capsule by mouth once daily, Refills(s) 0 Start Date: 12/02/23 Status: Orderedtake 1 capsule by mouth every twenty-four hours in the morningtamsulosin (Flomax) 0.4 MG 24 hr capsule Take 0.4 mg by mouth in the morning. Active Completed/Discontinued Medications MedicationDrug Class(es)DatesSig (Normalized)Sig (Original)acetaminophen 325 mg oral tablet (1 source)Start: 36-77-9810321 mg, Oral, EVERY 6 HOURS, First dose on Sat06/30/24 at 1815, Until Discontinued, Maximum dose of acetaminophen is 4000 mg from all sources in 24 hours., Post-opacetaminophen 325 mg / butalbital 50 mg / caffeine 40 mg oral tablet (1 source)Barbiturate, Central Nervous System Stimulant, MethylxanthineStart: 07-01-2024 End: 78-32-6817zrwo 1 tablet by mouth every twenty-four hours1 tablet, Oral, ONCE, 1 dose, On Sat07/01/24 at 0445, Maximum dose of acetaminophen is 4000 mg from all sources in 24 hours.Start: 07-01-2024 End: 84-09-6612mzfi 1 tablet by mouth every twenty-four hours1 tablet, Oral, ONCE, 1 dose, On Sat07/01/24 at 0445, Maximum dose of acetaminophen is 4000 mg from all sources in 24 hours.allopurinol 100 mg oral tablet (20 sources)Xanthine Oxidase InhibitorStart: 52-33-0348hsxuzkcbryi 100 mg Tab 135 EA, 0 Refill(s), take 1 AND 1/2 tablets by mouth once daily, Refills(s) 0 Start Date: 12/02/23 Status: Ordered Repeat number: 1Start: 14-07-7899lqsuremfvld (Zyloprim) 100 MG tablet Take 150 mg by mouth Daily 12/20/2022 Activeamoxicillin 500 mg oral tablet (18 sources)Penicillin-class AntibacterialStart: 05-06-2023 End: 65-79-7644jzgt 4 tablets by mouth once at mealtimeamoxicillin (Amoxil) 500 MG tablet Indications: Status post hip replacement, unspecified laterality4 tabs PO once 30-60 mins before procedure with food 4 tablet 3 05/06/2023 02/01/2025 Discontinued (Therapy completed)bisacodyl 5 mg delayed release oral tablet (2 sources)Stimulant LaxativeStart: 39-90-0816udrz 5 mg by mouth once daily5 mg, Oral, DAILY, First dose on Sat06/30/24 at 1815, Until Discontinued, Do not crush or break., Post-opStart: 92-61-7141haau 10 mg rectal route once daily as needed for vvwvqhkaitay35 mg, Rectal, DAILY PRN, Starting on Sat06/30/24 [...] ophthalmic solution (1 source)Quinolone AntimicrobialStart: 06-30-2024 End: 43-66-4172xhwt 1 drop(s) into the eye(s) three times daily1 drop, Right Eye, 3 times daily, First dose on Sat06/30/24 at 2100, Until Discontinued1 ml dexamethasone phosphate 10 mg/ml prefilled syringe (1 source)CorticosteroidStart: 07-01-2024 End: 12-84-405217 mg, IntraVENous, EVERY 8 HOURS, First dose on Sat07/01/24 at 0715, For 3 dosesdocusate sodium 56.6 mg/ml enema (1 source)Start: 72-11-7797nozl 283 mg rectal route once daily as tsrbyq697 mg (1 enema), Rectal, DAILY PRN, Starting on Sat07/02/24 at 1433, Until Discontinued, Constipationdocusate sodium 50 mg / sennosides, long term 8.6 mg oral tablet (1 source)Start: 59-30-1583xqan 1 tablet by mouth twice daily1 tablet, Oral, 2 TIMES DAILY, First dose on Sat06/30/24 at 2100, Until Discontinued, Post-op2 ml fentaNYL 0.05 mg/ml injection (1 source)Opioid AgonistStart: 06-30-2024 End: 31-95-147869 mcg, IntraVENous, EVERY 5 MIN PRN, 2 [...] solution (12 sources)Nonsteroidal Anti-inflammatory Drug, Cyclooxygenase InhibitorStart: 31-91-3958ffdm 1 drop(s) into the eye(s) four times daily1 drop, Right Eye, 4 TIMES DAILY, First dose (after last modification) on Sat07/01/24 at 2100, Until DiscontinuedStart: 06-30-2024 End: 82-48-0199zsej 1 drop(s) into the eye(s) three times daily1 drop, Right Eye, 3 times daily, First dose on Sat06/30/24 at 2100, Until DiscontinuedStart: 63-35-5262wxkv 1 drop(s) into the eye(s) at bedtimeketorolac (ACULAR) 0.5 % ophthalmic solution Place 1 drop into the right eye in the morning, at noon, and at bedtime 06/22/2024 SuspendedStart: 05-19-2024 End: 57-66-1218udvh 1 drop(s) into the eye(s) in the morningketorolac (Acular) 0.5 % ophthalmic solution Indications: Age-related nuclear cataract of both eyes Administer 1 drop into affected eye(s) in the morning and 1 drop before bedtime. 5 mL 1 05/19/2024 06/18/2024 Activelisinopril 20 mg oral tablet (20 sources)Angiotensin Converting Enzyme InhibitorStart: 10-04-0222thdhvyeosz 20 mg Tab 90 EA, 0 Refill(s), take 1 tablet by mouth once daily, Refills(s) 0 Start Date: 12/02/23 Status: Ordered Repeat number: 1methylPREDNISolone (5 sources)CorticosteroidStart: 03-11-2024 End: 52-94-9769blfadrJXIJRYWjjacg (Medrol Dospak) 4 MG tablets Indications: Lumbar back pain with radiculopathy affecting left lower extremity Follow schedule on package instructions 21 tablet 03/11/2024 04/15/2024iscontinued Start: 80-86-5375gfllbwLZRVAEOgvbyz (Medrol Dospak) 4 MG tablets Indications: Lumbar back pain with radiculopathy affecting left lower extremity Follow schedule on package instructions 21 tablet 03/11/2024 Activeofloxacin 3 mg/ml ophthalmic solution (5 sources)Quinolone AntimicrobialStart: 46-54-4142jcxa 1 drop(s) into the eye(s) at bedtimeofloxacin (OCUFLOX) 0.3 % solution Place 1 drop into the right eye in the morning, at noon, and at bedtime 06/22/2024 SuspendedStart: 05-19-2024 End: 81-38-2338wwqe 1 drop(s) into the eye(s) five times [...] release oral tablet (1 source)Proton Pump InhibitorStart: 55-96-265218 mg, Oral, DAILY BEFORE BREAKFAST, First dose on Sat07/01/24 at 0930, Until Discontinued, Substituted for Esomeprazole (NEXIUM).pravastatin sodium 40 mg oral tablet (20 sources)HMG-CoA Reductase InhibitorStart: 56-74-0383gagxyaukzyy 40 mg Tab 90 EA, 0 Refill(s), take 1 tablet by mouth once daily, Refills(s) 0 Start Date: 12/02/23 Status: Ordered Repeat number: 1prednisoLONE acetate 10 mg/ml ophthalmic suspension (9 sources)CorticosteroidStart: 93-52-7212ityb 1 drop(s) into the eye(s) twice daily1 drop, Right Eye, 2 times daily, First dose (after last modification) on Sat07/01/24 at 2100, Until DiscontinuedStart: 06-30-2024 End: 75-87-0787xgoj 1 drop(s) into the eye(s) three times daily1 drop, Right Eye, 3 TIMES DAILY, First dose on Sat06/30/24 at 2100, Until DiscontinuedStart: 95-52-5125xjppqdjqNRDJ acetate (PRED FORTE) 1 % ophthalmic suspension Place 1 drop into the right eye 3 timesdaily 06/22/2024 SuspendedStart: 05-19-2024 End: 44-90-1613tgipuzolGRMP acetate (Pred-Forte) 1 % ophthalmic suspension Indications: Age-related nuclear cataract of both eyes Administer 1 drop into affected eye(s) in the morning and 1 drop at noon and 1 drop in the evening and 1 drop before bedtime. Do all this for 14 days. 5 mL 1 05/19/2024 06/02/2024 ExpiredpredniSONE 50 mg oral tablet (3 sources)Start: 20-76-7813fcfaxjJFUQ 50 mg Tab 5 EA, 0 Refill(s), [...] or Central Line = 20 mL/lumen, Post-opStart: 75-20-8123GnlncCPTfsj, at 125 mL/hr, CONTINUOUS, Starting on Sat06/30/24 [...] Line = 20 mL/lumen, Post-opStart: 06-30-2024 End: 70-86-3969SebnkDBTica, at 5-250 mL/hr, PRN, if patient receiving [...] sources)Generalized anxiety disorder; Translations: [Generalized anxiety disorder]Onset: 515423-89-9743SpaklbkYlnjtmvc (2 sources)Bilateral age-related nuclear cataracts; Translations: [Age-related nuclear cataract, bilateral]01-83-8211YzxaoraWsraqgih mellitus with complications (4 sources)Neuropathy due to type 2 diabetes mellitus; Translations: [Type 2 diabetes mellitus with diabetic neuropathy, unspecified]Onset: 02-01-2025 20-11-4729AqmwphxFdtybyjf mellitus without complication (12 sources)Type 2 diabetes mellitus; Translations: [Type 2 diabetes mellitus without complications]Onset: 785905-13-5622SlesbqdHsenswexd of lipid metabolism (20 sources)Hyperlipidemia; Translations: [Mixed hyperlipidemia]Onset: 592276-32-3606ZrboqdxAnljsehiwc disorders (20 sources)Gastroesophageal reflux disease without esophagitis; Translations: [Gastro-esophageal reflux disease without esophagitis]Onset: 09-20-2016 24-60-8074JkqifyzTveolavwa hypertension (20 sources)Hypertensive disorder; Translations: [Essential hypertension]Onset: 023582-36-1996FiwymhyZmhu and other crystal arthropathies (20 sources)Gout; Translations: [Primary gout]Onset: hronic Hyperplasia of prostate (20 sources)Benign prostatic hypertrophy with outflow obstruction; Translations: [Benign prostatic hyperplasia with lower urinary tract symptoms]Onset: 44-86-1596HeqbojoCentlorrezbmgy (20 sources)Arthritis of left knee; Translations: [Unilateral primary osteoarthritis, left knee]Onset: 337298-07-3270WplcqwcIvqre connective tissue disease (20 sources)Artificial knee joint present; Translations: [Presence of unspecified artificial knee joint]Onset: 736956-57-9249IldprehIcjhe connective tissue disease (20 sources)History of total hip arthroplasty; Translations: [Presence of right artificial hip joint]Onset: 287982-38-3679BlrgscmShbiv connective tissue disease (20 sources)History of total knee arthroplasty; Translations: [Presence of unspecified artificial knee joint]Onset: 564656-12-9166DjtvkojLrejk diseases of kidney and ureters (1 source)Urinary tract obstruction; Translations: [Other obstructive and reflux uropathy]Onset: 45-73-0848UifdfixjInimm ear and sense organ disorders (2 sources)Mixed conductive AND sensorineural hearing loss; Translations: [Mixed conductive and sensorineural hearing loss, unilateral, left ear with restricted hearing on the contralateral side]63-59-0073GlkskucTmuab ear and sense organ disorders (2 sources)Conductive hearing loss, unilateral, left ear, with unrestricted hearing on the contralateral side;Translations: [Conductive hearing loss, unilateral]63-57-8161IltdyeyNmkie ear and sense organ disorders (2 sources)Tinnitus of vascular origin; Translations: [Pulsatile tinnitus, left ear]83-71-0124PnhsldqtYfomi ear and sense organ disorders (2 sources)Referred otalgia of left ear; Translations: [Otalgia, left ear] 41-69-2302GqvorvrkHbeam male genital disorders (18 sources)Male erectile dysfunction, unspecified; Translations: [Erectile dysfunction]Onset: 15-39-4779EnyrlzhLgrmr nervous system disorders (20 sources)Chronic pain; Translations: [Other chronic pain]Onset: 09-20-2016 13-28-5361CvyxnskWpnhe non-traumatic joint disorders (4 sources)Pain in left knee; Translations: [Pain in joint, lower leg]06-10-2024 EpisodicSpondylosis; intervertebral disc disorders; other back problems (20 sources)Lumbago-sciatica due to displacement of lumbar intervertebral disc; Translations: [Other intervertebral disc displacement, lumbosacral region]Onset: 659581-07-8326OlhrbckKvrvukpmubav (1 source)CONTACT W/AND (SUSP) EXPOS COVID-19; Translations: [CONTACT W/AND (SUSP) EXPOS COVID-19]Onset: 39-49-2348Fstccjnjziss (6 sources)Measurement ekbjqms94-97-6083Hcnmhxzzuezl (2 sources)Finding of sensation of uvrtydo12-85-4380Tvpwtgdazfmh (1 source)Other intervertebral disc degeneration, 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; Translations: [Other intervertebral disc degeneration, 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]Onset: 06-26-2024 Past or Other Problems Problem ClassificationProblemDateDocumented DateEpisodic/ChronicAbdominal hernia (20 sources)Umbilical hernia without obstruction or gangrene; Translations: [Irreducible umbilical hernia]Onset: 620761-82-6891OgpnclqsAogglocdx pain (20 sources)Periumbilical pain; Translations: [Periumbilical pain]Onset: 443321-81-0011ZhpmioebFcdluasgojetxy/social admission (4 sources)Patient encounter status; Translations: [Dietary counseling and surveillance]Onset: 786900-64-3031OpokbcylVljyqykd mellitus without complication (20 sources)Prediabetes; Translations: [Prediabetes]Onset: 879078-24-8086 EpisodicGenitourinary symptoms and ill-defined conditions (17 sources)Nocturia; Translations: [Dysuria]Onset: 03-46-8003RhigtocvEwphx gastrointestinal disorders (4 sources)Heartburn; Translations: [Heartburn]Onset: 961982-77-6849 EpisodicOther non-traumatic joint disorders (20 sources)Pain in right knee; Translations: [Pain in joint, lower leg]Onset: 743192-78-8776YeggpntyWonia nutritional; endocrine; and metabolic disorders (20 sources)Body mass index 25-29 - overweight; Translations: [Overweight]Onset: 001297-55-4926BwdhkgrwWuxuz nutritional; endocrine; and metabolic disorders (20 sources)Overweight; Translations: [Overweight]Onset: EpisodicOther screening for suspected conditions (not mental disorders or infectious disease) (19 sources)Raised prostate specific antigen; Translations: [Elevated prostate specific antigen [PSA]]Onset: 08-13-2625ZfprbzsvOpaokacb codes; unclassified (20 sources)Family history of diabetes mellitus; Translations: [Family history of diabetes mellitus]Onset: 691400-98-2486IikpuhdnEackcnmkfgg; intervertebral disc disorders; other back problems (20 sources)Lumbar radiculopathy; Translations: [Radiculopathy, lumbar region] Onset: 820724-96-4704XfzoqombUgqwsgwynrac (1 source)Other intervertebral disc degeneration, 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 TECHNIQUE: Spiral imaging of the te-moak of [place] was performed. after the infusion [...] None available. TECHNIQUE: Spiral imaging of the te-moak of [place] was performed. after the infusion [...] IAC W/ CONTRASTOrdered By: Radiologist Radiology on 97-93-0044LSCR [employer] Work Phone: ct Orbit Sella IAC w/ Contraston 84-24-1918PI Orbit Sella IAC w/ ContrastExam Date/Time: 02/12/2025 [...] None available. TECHNIQUE: Spiral imaging of the te-moak of [place] was performed. after the infusion [...] Cabrera MD Transcribed by: JOANNA Technologist: [facility] - Other Lab Resultson 66-07-6162Ydd - Other Lab Results [id number]#1.00OTGTIFFDetwiler Memorial HospitalCT ORBIT SELLA IAC W/ CONTRASTon 55-67-7431Eywnkwtvy Study observation (narrative) [facility] HealthcareCreatinineon 69-05-6551Hntiszyebs [Mass/Vol]1.0 mg/dLNormal 0.5-1.3Fisher [facility] CampusComment on above:Performed By: #### [id number] #### [facility] [address], [place] [address]uNUCej 97-48-7647yAYV76 mL/min/1.73 p5Xzwfbl>=59Fisher [facility] CampusComment on above:Performed By: #### [id number] #### [facility] [address], [place] [address]Ppdgihs Office/Clinic Noteon 59-26-3862Ezhynzm Office/Clinic NoteUrology Office/Clinic Note Chief Complaint 2 [...] w/ PVR, call sooner if needed Ordered: 09153 Measure Post Void residual urine and/or bladder capacity by US- non-imaging Urnls Dip Stick Auto w/o Microscopy POC 01914 2. Feeling of incomplete bladder emptying (R39.14: [...] -See #1 -Timed voids, voiding maneuvers Ordered: 90473 Measure Post Void residual urine and/or bladder capacity by US- non-imaging Urnls Dip Stick Auto w/o Microscopy POC 19983 3. Increased prostate specific antigen (PSA) velocity [...] 20 mg Tab prav (more content not included)...[facility] HospitalComment on above:Result Comment: Electronically Signed By: Leelee Willson PA-C\.br\Date and Time Signed: 12/30/24 09:12 EDTLab - Other Lab Resultson 36-22-7246Yfb - Other Lab [id number]#1.00OTGTIFFFirelands Regional Medical Center South Campus - Other Lab Results [id number]#1.00OTGTIFFNormalMagruder HospitalLab - Other Lab Resultson 89-18-8370Vet - Other Lab Results [id number]#1.00[facility] Outside Recordson 11-16-6406Bjkdesu Records [id number]#1.00[facility] Patient Handouton 01-21-8122Gvgzzfi Handout [id number]#1.00[facility] Patient [id number]#1.00[facility] CenterUrology Office/Clinic Noteon 27-17-4496Anngrme Office/Clinic NoteUrology Office/Clinic Note Chief Complaint urinary [...] will need a refill sent to [facility] [place] [facility] - 194' History of Present Illness [...] BID, # 30 cap(s), Refills(s) 11, Pharmacy: [facility], 192, cm, 10/28/24 12:43:00 EDT, Height/Length Dosing, 113.1, kg, 10/28/24 12:43:00 EDT, Weight Dosing 42975 Measure Post Void residual urine and/or bladder capacity by US- non-imaging Urnls Dip Stick Auto w/o Microscopy POC 58267 2. Feeling of incomplete bladder emptying (R39.14: [...] dose today. He t (more content not included)...[facility] HospitalComment on above: Result Comment: Electronically Signed By: Anamika CORTES, Leelee\.harmeet\Date and Time Signed: 10/28/24 14:18 EDTNo Panel Informationon 80-15-6150Hhssthaqj Study observation (narrative)[facility]OM[facility] HealthcareXR Knee - left [...] or dislocation. Impression: Unremarkable left total knee arthroplastyCaroMont Regional Medical CenterXR Knee - right 1 or 2 Viewson 34-17-8380Rqkihhz Result: AP and Lateral of right knee: Surgical position and alignment of prosthetic components without evidence of loosening or wear to femora, tibial or patellar components, The alignment appears to be anatomic. No evidence of accelerated or asymmetric wear to tibial tray or patella button. No evidence of fracture or dislocation. Impression: Unremarkable right total knee arthroplastyCaroMont Regional Medical CenterANION GAPon 03-51-3668Jgdbx gap [Moles/Vol]12.0 mmol/LNormal8.0-16.0 [facility] Health AllenComment on above:Result Comment: ANION GAP = Sodium - (Chloride + CO2)Performed By: #### HH, EGFR1, BMP, ANION #### [facility] [address] [place] [address]Ralzz Gapon 61-14-6580Syynz gap [Moles/Vol]12.0 mmol/L8.0 - 16.0 meq/LBon Doctors HospitalComment on above:ANION GAP = Sodium -(Chloride + CO2) Performed at [facility] [address] [place] [address] BASIC METABOL PANELon 16-44-4998Demkgtv [Mass/Vol]9.2 mg/dLNormal8.5-10.5SAdventHealthComment on above:Performed By: #### HH, EGFR1, BMP, ANION #### [facility] [address] [place] [address]Gqfdcfbl [Moles/Vol]101 mmol/XAqrzfv83-649BydmpTexas Health AllenComment on above:Performed By: #### HH, EGFR1, BMP, ANION #### [facility] [address] [place] [address] 36396DR4 [Moles/Vol]24 mmol/HVmxsgz37-54TeriyTexas Health Allen Comment on above:Performed By: #### HH, EGFR1, BMP, ANION #### [facility] [address] [place] [address] 40690Trnqjaovon [Mass/Vol]0.8 mg/dLNormal0.4-1.2SAdventHealthComment on above:Performed By: #### HH, EGFR1, BMP, ANION #### [facility] [address] [place] [address] 07724Wbzaxyr [Mass/Vol]189 mg/xOEcmp16-883RewmjTexas Health Allen Comment on above:Performed By: #### JUAN J, EGFR1, BMP, ANION #### [facility] [address] [place] [address] 53469Igcuydrzr [Moles/Vol]4.7 mmol/LNormal3.5-5.2SAdventHealthComment on above:Performed By: #### JUAN J, EGFR1, BMP, ANION #### [facility] [address] [place] [address] 76291Esdjyg [Moles/Vol]137 mmol/OWficqa740-932BxkvnTexas Health AllenComment on above:Performed By: #### JUAN J, EGFR1, BMP, ANION #### [facility] [address] [place] [address] 48535Pxeb nitrogen [Mass/Vol]18 mg/dLNormal7-22Texas Health AllenComment on above:Performed By: #### JUAN J, EGFR1, BMP, ANION #### [facility] [address] [address]Ipnjb metabolic 2000 panelon 39-97-8048Okegdta [Mass/Vol]9.2 mg/dL 8.5 - 10.5 mg/dLBon Secours Ohiohealth Doctors Hospitaly HealthComment on above:Performed at [facility] [address] [place] [address] 51560Onaqaxwh [Moles/Vol]101 mmol/L98 - 111 meq/LBon Secours Mercy HealthCO2 [Moles/Vol]24 mmol/L23 - 33 meq/LBon Secours Mercy HealthCreatinine [Mass/Vol]0.8 mg/dL0.4 - 1.2 mg/dLBon Secours Mercy HealthGlucose [Mass/Vol]189 mg/nNHyjj26 - 108 mg/dLBon Secours Mercy HealthInterpretation and review of laboratory resultsAbnormalBon Secours Mercy HealthPotassium [Moles/Vol]4.7 mmol/L3.5 - 5.2 meq/LBon [facility] Health Sodium [Moles/Vol]137 mmol/L135 - 145 meq/LBon [facility] HealthUrea nitrogen [Mass/Vol]18 mg/dL7 - 22 mg/dLBon Doctors HospitalGFR, ESTIMATEDon 22-49-1934JSU/1.73 sq M.predicted MDRD (S/P/Bld) [Vol rate/Area]mL/min/{1.73_m2} Normal>60Bon [facility] on above:Pediatric calculator link https://www.kidney.org/professionals/kdoqi/gfr_calculatorped [...] that affects renal tubular secretion. Performed at [facility] [address] [place] [address] Result Comment: Pediatric calculator link https://www.kidney.org/professionals/kdoqi/gfr_calculatorped Effective [...] By: #### HH, EGFR1, BMP, ANION #### [facility] [address] [place] [address] 00071FNN,HCTon 02-88-3175Oibclyivpf (Bld) [Volume fraction]44.1 %Normal 42.0-52.0Bon [facility] on above:Performed at [facility] [address] [address]Gtumyhkgf By: #### HH, EGFR1, BMP, ANION #### [facility] [address] [place] [address] 27837Jqeajxtsix (Bld) [Mass/Vol]14.1 g/lIGglisp78.0-18.0Bon Doctors HospitalComharbor beach community hospital on above:Performed By: #### HH, EGFR1, BMP, ANION #### [facility] [address] [place] [address] 74069Wgelwdrmxy and Hematocrit panel (Bld)on 51-21-0719Nrc Doctors HospitalNo Panel Informationon 94-85-7085Lxt Doctors HospitalANION GAPon 33-89-2266Huuho gap [Moles/Vol]12.0 mmol/LNormal8.0-16.0Texas Health AllenComment on above:Result Comment: ANION GAP = Sodium -(Chloride + CO2) Performed By: #### HH, BMP, ANION, EGFR1 #### [facility] [address] [address]Ndvri Gapon 60-60-2981Pcgbb gap [Moles/Vol]12.0 mmol/L8.0 - 16.0 meq/LBon Doctors HospitalComharbor beach community hospital on above:ANION GAP = Sodium -(Chloride + CO2) Performed at [facility] [address] [address] BASIC METABOL PANELon 40-47-6962Ibitaku [Mass/Vol]8.6 mg/dLNormal8.5-10.5SAdventHealthComment on above:Performed By: #### HH, BMP, ANION, EGFR1 #### [facility] [address] [place] [address] 76451Ecwwryhq [Moles/Vol]101 mmol/AZdwkii33-921LpypnTexas Health AllenComment on above:Performed By: #### HH, BMP, ANION, EGFR1 #### [facility] [address] [place] [address] 67254IO2 [Moles/Vol]21 mmol/IMqg34-78GnvtpTexas Health AllenComment on above:Performed By: #### HH, BMP, ANION, EGFR1 #### [facility] [address] [place] [address] 82350Egrcfatxiu [Mass/Vol]0.8 mg/dLNormal0.4-1.2SAdventHealthComment on above:Performed By: #### JUAN J, BMP, ANION, EGFR1 #### [facility] [address] [place] [address] 30528Otihudw [Mass/Vol]158 mg/zGNisz47-577XwcahTexas Health Allen Comment on above:Performed By: #### HH, BMP, ANION, EGFR1 #### [facility] [address] [place] [address] 36704Vlqdaenkq [Moles/Vol]4.4 mmol/LNormal3.5-5.2SAdventHealthComment on above:Performed By: #### JUAN J, BMP, ANION, EGFR1 #### [facility] [address] [place] [address] 01150Cecset [Moles/Vol]134 mmol/IQxi644-016PbkvjTexas Health Allen Comment on above:Performed By: #### JUAN J, BMP, ANION, EGFR1 #### [facility] [address] [address]Ntji nitrogen [Mass/Vol]13 mg/dLNormal7-22Texas Health AllenComment on above:Performed By: #### JUAN J, BMP, ANION, EGFR1 #### [address] [address]Ocxyn metabolic 2000 panelon 45-91-2785Vlmkgpj [Mass/Vol]8.6 mg/dL 8.5 - 10.5 mg/dLBon Secours Ohiohealth Doctors Hospitaly HealthComment on above:Performed at [facility] [address] [place] [address] 51139Sopsbnjq [Moles/Vol]101 mmol/L98 - 111 meq/LBon Secours Mercy HealthCO2 [Moles/Vol]21 mmol/LLow23 - 33 meq/LBon Secours Mercy HealthCreatinine [Mass/Vol]0.8 mg/dL0.4 - 1.2 mg/dLBon Secours Mercy HealthGlucose [Mass/Vol]158 mg/bOCynx86 - 108 mg/dLBon Secours Mercy HealthInterpretation and review of laboratory resultsAbnormalBon Secours Mercy HealthPotassium [Moles/Vol]4.4 mmol/L3.5 - 5.2 meq/LBon [facility] Sodium [Moles/Vol]134 mmol/UVhc862 - 145 meq/LBon Doctors HospitalUrea nitrogen [Mass/Vol]13 mg/dL7 - 22 mg/dLBon Doctors HospitalGFR, ESTIMATEDon 72-45-0713ZVG/1.73 sq M.predicted MDRD (S/P/Bld) [Vol rate/Area]mL/min/{1.73_m2} Normal>60Bon [facility] on above:Pediatric calculator link https://www.kidney.org/professionals/kdoqi/gfr_calculatorped [...] that affects renal tubular secretion. Performed at [facility] [address] [place] [address] Result Comment: Pediatric calculator link https://www.kidney.org/professionals/kdoqi/gfr_calculatorped Effective [...] By: #### HH, BMP, ANION, EGFR1 #### [facility] [address] [place] [address] 96536QBF,HCTon 66-04-3105Popiandvvy (Bld) [Volume fraction]43.9 %Normal 42.0-52.0Bon [facility] on above:Performed at [facility] [address] [address]Clkigpgxr By: #### HH, BMP, ANION, EGFR1 #### [facility] [address] [place] [address] 03732Fzrggoukni (Bld) [Mass/Vol]14.5 g/fDQrsjlg72.0-18.0Bon Doctors HospitalComment on above:Performed By: #### HH, BMP, ANION, EGFR1 #### [facility] [address] [place], [place] [address]Rrqefbfnxm and Hematocrit panel (Bld)on 83-02-3603Aih Doctors HospitalNo Panel Informationon 58-34-2812Ufx SecMorehouse General Hospital HealthTYPE AND SCREENon 31-07-2865TXKGAmi [facility] HealthRh FactorPositiveBon SecMorehouse General Hospital HealthBon SecMorehouse General Hospital HealthTYPE AND SCREEN CAPTUREon 38-43-9061ZMK CAPTUREBNormalSaint St. Luke's Boise Medical CenterComment on above:Performed By: #### CT+S #### [facility] [address] [place] [address] 83093ZGLMFAHT BERYL CAPTURENegativeNoOdessa Regional Medical Center Comment on above:Performed By: #### CT+S #### [facility] [address] [place] [address] 04902VD CAPTURE (2 D CLONES)PositiveKell West Regional Hospital Comment on above:Performed By: #### CT+S #### [facility] [address] [place] [address] 39714WO Lumbar spine Single viewon . Single intraoperative [...] technology. Electronically signed by Dr. Syed Tidwell [facility] CenterRadiology Study observation (narrative)[facility] CenterXR Lumbar spine Single viewOrdered By: Jordan Tidwell on 67-72-9072Ceu [facility] Work Phone: MRSA BY PCRon 67-55-7920TTDP SCREEN RT-PCRNegative NormalTexas Health AllenComment on above:Result Comment: No MRSA detected by Real Time - Polymerase Chain Reaction. Specimen Source: NaresPerformed By: #### MRSP #### [facility] [address] [place] [address] 93317BEGL DNA GEORGIE+probe Ql (Unsp spec)on 84-88-7163Hkc Doctors HospitalMRSA by PCRon 34-67-3652CIRP DNA GEORGIE+probe Ql (Unsp spec)NegativeBon Doctors HospitalComment on above:No MRSA detected by Real Time - Polymerase Chain Reaction. Specimen Source: Nares Performed at [facility] [address] [place] [address] ANION GAPon 65-74-0024Mzhyc gap [Moles/Vol]12.0 mmol/LNormal8.0-16.0Texas Health AllenComment on above:Result Comment: ANION GAP = Sodium -(Chloride + CO2)Performed By: #### HH, BMP, ANION, EGFR1 #### [facility] [address] [place] [address] 28133HYFVxh 32-00-5334mHWK Coag (Bld) [Time]33.2 dOxkfrt61.0-38.0Texas Health AllenComment on above:Result Comment: Therapeutic Heparin Reference Range= 60-95 seconds (corresponds to 0.3 to 0.7 u/mL Anti-Xa factor activity)Performed By: #### JUAN J, BMP, ANION, EGFR1 #### [facility] [address] [place] [address] 20896Whfig Gapon 32-62-6921Svsej gap [Moles/Vol]12.0 mmol/L8.0 - 16.0 meq/LBon Doctors HospitalComment on above:ANION GAP = Sodium -(Chloride + CO2) Performed at [facility] [address] [place] [address] BASIC METABOL PANELon 02-03-4663Fflbmkj [Mass/Vol]9.8 mg/dLNormal8.5-10.5SAdventHealthComment on above:Performed By: #### JUAN J, BMP, ANION, EGFR1 #### [facility] [address] [place] [address] 14833Fonmjoaj [Moles/Vol]102 mmol/MGivedt80-216JcdubTexas Health AllenComment on above:Performed By: #### JUAN J, BMP, ANION, EGFR1 #### [facility] [address] [address]XZ7 [Moles/Vol]25 mmol/EKlecuq12-11KngkiTexas Health Allen Comment on above:Performed By: #### JUAN J, BMP, ANION, EGFR1 #### [facility] [address] [address]Hnlhbtippk [Mass/Vol]1.0 mg/dLNormal0.4-1.2SAdventHealthComment on above:Performed By: #### JUAN J, BMP, ANION, EGFR1 #### [facility] [address] [place] [address] 50159Hppijfu [Mass/Vol]109 mg/uIQxep82-096JfsetTexas Health Allen Comment on above:Performed By: #### JUAN J, BMP, ANION, EGFR1 #### [facility] [address] [place] [address] 41263Bfcegekby [Moles/Vol]4.8 mmol/LNormal3.5-5.2SAdventHealthComment on above:Performed By: #### JUAN J, BMP, ANION, EGFR1 #### [facility] [address] [place] [address] 16249Kftyxj [Moles/Vol]139 mmol/OUnbkdc866-263TunkdTexas Health AllenComment on above:Performed By: #### JUAN J, BMP, ANION, EGFR1 #### [facility] [address], [place] [address]Umke nitrogen [Mass/Vol]17 mg/dLNormal7-22SaUniversity HospitalComment on above:Performed By: #### JUAN J, BMP, ANION, EGFR1 #### [facility] [address], [place] [address]Fighj metabolic 2000 panelon 32-89-5272Thedzzn [Mass/Vol]9.8 mg/dL 8.5 - 10.5 mg/dLBon Doctors HospitalComment on above:Performed at [facility] [address] [place] [address] 51417Hturvzmm [Moles/Vol]102 mmol/L98 - 111 meq/LBon Doctors HospitalCO2 [Moles/Vol]25 mmol/L23 - 33 meq/LBon Doctors HospitalCreatinine [Mass/Vol]1.0 mg/dL0.4 - 1.2 mg/dLBon Doctors HospitalGlucose [Mass/Vol]109 mg/sUFwgl48 - 108 mg/dLBon Doctors HospitalInterpretation and review of laboratory resultsAbnormalBon Doctors HospitalPotassium [Moles/Vol]4.8 mmol/L3.5 - 5.2 meq/LBon [facility] Sodium [Moles/Vol]139 mmol/L135 - 145 meq/LBon SecElyria Memorial HospitalUrea nitrogen [Mass/Vol]17 mg/dL7 - 22 mg/dLBon SecElyria Memorial HospitalCBCon 06-26-2024 Erythrocyte distribution width (RBC) [Entitic vol]41.0 fL35.0 - 45.0 fLBon SecDoctors Hospitaly [facility] Memorial HospitalPlatelets (Bld) [#/Vol]266 10*3/uLBon SecElyria Memorial Hospital RBC (Bld) [#/Vol]5.66 10*6/uLBon SecDoctors Hospitaly [facility] HospitalWBC (Bld) [#/Vol]6.4 10*3/uLBon Secours [facility] HealthBon SecElyria Memorial HospitalCBC NO DIFFERENTIALon 51-44-4074Rdnikozwutt distribution width (RBC) [Ratio]12.6 %Xzwiuc12.5-14.5Bon Doctors HospitalComharbor beach community hospital on above:Performed By: #### HH, BMP, ANION, EGFR1 #### [facility] [address] [place] [address] 89128Hdqurgbcke (Bld) [Volume fraction]49.9 %Ppjjvn83.0-52.0Bon Doctors HospitalComment on above:Performed By: #### HH, BMP, ANION, EGFR1 #### [facility] [address] [place] [address] 04622Qybbefydnc (Bld) [Mass/Vol]16.4 g/fHGkohrc80.0-18.0Bon [facility] on above:Performed By: #### HH, BMP, ANION, EGFR1 #### [facility] [address] [address]VFX (RBC) [Entitic mass]29.0 yfPghjej47.0-33.0Bon Doctors HospitalComharbor beach community hospital on above:Performed By: #### HH, BMP, ANION, EGFR1 #### [facility] [address] [place] [address] 637[address]BZLY (RBC) [Mass/Vol]32.9 g/yPAxlvdr56.2-35.5Bon [facility] on above:Performed By: #### HH, BMP, ANION, EGFR1 #### [facility] [address] [place] [address] 80522WCP (RBC) [Entitic vol]88.2 bTYideti66.0-94.0Bon [facility] on above:Performed By: #### HH, BMP, ANION, EGFR1 #### [facility] [address] [place] [address] 81435VVKZNEJS706 thou/lx3Gmcztl023-060HgvpgUniversity Hospital Comment on above:Performed By: #### HH, BMP, ANION, EGFR1 #### [facility] [address] [place] [address] 36938Xtdlghlo mean volume (Bld) [Entitic vol]9.7 fLNormal9.4-12.4Bon [employer] HealthComment on above:Performed at [facility] [address] [place] [address] 04941Enurlcdab By: #### HH, BMP, ANION, EGFR1 #### [facility] [address] [place] [address] 89732EIP3.66 mill/rt0Apdmap1.70-6.10Texas Health AllenComment on above:Performed By: #### HH, BMP, ANION, EGFR1 #### [facility] [address] [place] [address] 33234LXD-JJ66.0 oDLibkro94.0-45.0Texas Health AllenComment on above:Performed By: #### HH, BMP, ANION, EGFR1 #### [facility] [address] [place] [address] 80745JDL3.4 thou/vm8Zrdetr9.8-10.8Texas Health AllenComment on above:Performed By: #### HH, BMP, ANION, EGFR1 #### [facility] [address] [place] [address] 10905PYP 12 LeadOrdered By: Reanna De La Rosa on 06-19-5344Fvxxha Vuty60SVL Bon [facility] Work Phone: P Dhke81lognmixRetAplicor Work Phone: P-R Faxmwcqy501 msBon SeciXpert Work Phone: Q-T Jmicixpa828 msBon SecWorld View Enterprises Health Work Phone: QRS Daatjeot44 msBon SecIntellideny Health Work Phone: QTc Calculation (Rian)395 msBon SecIntellideny Health Work Phone: R Papt55iwdaynqYyd SecWorld View Enterprises Health Work Phone: T Xotr86xwhclfqIll SecWorld [facility] Enterprises Health Work Phone: Ventricular Ozyi16OTMGih SeciXpert Work Phone: Bon [employer] Work Phone: EKG 12 Leadon 59-86-0791Amfwg bradycardia with 1st degree A-V block Otherwise normal ECG No previous ECGs available Confirmed by REANNA DE LA ROSA ([id number]) on 06/26/2024 3:31:35 PMWCOH Reanna Nguyen MD - 06/26/2024 Sinus bradycardia with 1st degree A-V block Otherwise normal ECG No previous ECGs available Confirmed by REANNA DE LA ROSA ([id number]) on 06/26/2024 3:31:35 PM [facility] Xintu ShujuEKG 12-LEADon 82-62-0752ZVW 12-LEAD57 57 214 74 406 395 56 30 42 Sinus bradycardia with 1st degree A-V block Otherwise normal ECG No previous ECGs available Confirmed by REANNA DE LA ROSA ([id number]) on 06/26/2024 3:31:35 PM [email or web address]&Date=12-20&Time=13%3a37%3a20%3a00&TestType=ECG&Site=3&OutputType=PDF&Ext=PDFNormal Texas Health AllenGFR, ESTIMATEDon 97-16-2509EJB/1.73 sq M.predicted MDRD (S/P/Bld) [Vol rate/Area]86 mL/min/{1.73_m2}Normal>60Bon Doctors HospitalComment on above:Pediatric calculator link https://www.kidney.org/professionals/kdoqi/gfr_calculatorped Effective Apr [...] that affects renal tubular secretion. Performed at [facility] [address] [place] [address] Result Comment: Pediatric calculator link https://www.kidney.org/professionals/kdoqi/gfr_calculatorped Effective [...] By: #### HH, BMP, ANION, EGFR1 #### [facility] [address] [place] [address] 09728VAZ Coag (PPP) [Relative time]on 98-59-5943Oxx Doctors HospitalNo Panel Informationon 18-76-9593Qlw Doctors HospitalPROTHOMBIN TIMEon 16-59-7697XJE Coag (Bld) [Relative time]1.05 {INR}Normal0.85-1.13Texas Health AllenComment on above:Result Comment: ---------INDICATION INR Reference Range DVT, PE, AF, AMI, tissue heart valve 2.0 to 3.0 Mechanical prosthetic valves 2.5 to 3.5Performed By: #### HH, BMP, ANION, EGFR1 #### [facility] [address] [place] [address] 35245Fwymvzu-FHYpc 07-69-5496DKL Coag (PPP) [Relative time]1.05 {INR} 0.85 - 1.13Bon Doctors HospitalComment on above: ---------INDICATION INR Reference Range DVT, PE, AF, AMI, tissue heart valve 2.0 to 3.0 Mechanical prosthetic valves 2.5 to 3.5 Performed at [facility] [address] [address] XR Chest 2 Viewson 66-43-5176Pvzchv chest. No acute findings. This report has [...] technology. Electronically signed by Dr. Sly Doran [facility] OctamerRadiology Study observation (narrative)[facility] OctamerXR Chest 2 ViewsOrdered By: Sly Doran on 71-03-5576Vpa [employer] Work Phone: aPTT Coag (Bld) [Time]on 62-75-5098tBCL Coag (PPP) [Time]33.2 sBon OctamerComment on above:Therapeutic Heparin Reference Range= 60-95 seconds (corresponds to 0.3 to 0.7 u/mL Anti-Xa factor activity) Performed at [facility] [address] [place] [address] [employer] [facility] HospitalUrology Office/Clinic Noteon 60-22-8434Vgbqeri Office/Clinic NoteUrology Office/Clinic Note Chief Complaint 2-3 [...] knee arthroplasty (2021), Herni (more content not included)...Grant HospitalComment on above:Result Comment: Electronically Signed By: [...] calculation purposes. Calculation made for both eyes (OU).[facility] Radiology Study observation (narrative)[facility] HealthcareAmbulatory Visit Summaryon 86-36-3256Vldicjmupb Visit SummaryAmbulatory Visit Summary JUAN FRANCISCO CARMEN [...] Maura Payne MD Where: [facility] [place] [id number]- You Need to Schedule the Following Appointments Follow Up with Maura Payne MD M., URAdwoa, URO When: Comments: 2 mos w/ PVR Where: [address], [place] [phone] Medications What When Instructions Unchanged allopurinol (allopurinol [...] on your medical h (more content not included)...Grant HospitalUrology Office/Clinic Noteon 52-88-1730Cwfdywu Office/Clinic NoteUrology Office/Clinic Note Chief Complaint 1 [...] Maura Torres, URL, URO [address], [facility] [place] [phone] Additional Instructions: 2 mos w/ PVR Patient [...] Father and Brother. Immunizations (more content not included)...Grant HospitalComment on above: Result Comment: Electronically Signed By: Elmer GÓMEZ, Maura Torres\.br\Date and Time Signed: 04/01/24 10:00EDT\.br\Electronically Co-Signed By: Roberta Frederick\.br\Date and Time Co-Signed: 04/01/24 09:46 EDTMR LUMBAR SPINE WO CONon 26-82-85[place], [place] [address] Magnetic Resonance Report Signed Patient: JUAN FRANCISCO CARMEN MR#: [id number] : 1965 Acct:[id number] Age/Sex: 58 / M ADM Date: 03/05/24 Loc: MRI Attending Dr: Marci WHITESIDE Ordering Physician: Marci Ponce Date of Service: 03/05/24 Procedure(s): MR lumbar spine wo con Accession Number(s): [id number] cc: BERTA HERRERA ; Marci Ponce [place] [address] Patient Name: JUAN FRANCISCO CARMEN MRN: [id number] date: 1965 Sex: M Assigned Patient Location: MRI Current Patient Location: MRI Accession/Order Number: [id number] Exam Date: 03/05/2024 07:55 Report Date: 03/05/2024 [...] Signed By: 03/05/24 1054 DD/ 1052 TD/TT: Channel Process Plant Operator:TBHRadiology, Radiologist, - 03/05/[address] [address] Magnetic Resonance Report Signed Patient: JUAN FRANCISCO CARMEN MR#: [id number] : 1965 Acct:[id number] Age/Sex: 58 / M ADM Date: 03/05/24 Loc: MRI Attending Dr: Marci WHITESIDE Ordering Physician: Marci Ponce Date of Service: 03/05/24 Procedure(s): MR lumbar spine wo con Accession Number(s): [id number] cc: BERTA HERRERA ; Marci Ponce The [address] [address] Patient Name: JUAN FRANCISCO CARMEN MRN: [id number] date: 1965 Sex: M Assigned Patient Location: MRI Current Patient Location: MRI Accession/Order Number: [id number] Exam Date: 03/05/2024 07:55 Report Date: 03/05/2024 [...] Signed By: 03/05/24 1054 DD/ 1052 TD/TT: Channel Process Plant Operator: JOSE [facility] HospitalRadiology Study observation (narrative)[facility] LUMBAR SPINE WO CONOrdered By: Radiologist Radiology on 63-71-0890[facility] Work Phone: Lon 03-30-2022L Specimen: [id number] Received: 03/30/22 Status: TISHA Edmonds Num: [id number] Spec Type: Surgical Subm Dr: Elmo Vela DO Tissues: A Hernia Sac (HERNIA SAC) Procedures: HE Stain, Gross/Micro L2 Age/ Patient Sex Location Account Attending Physician Juan Francisco Carmen/Umair ADLER [id number] Elmo Vela DO SPEC NUM: [id number] RECD: 03/30/22 STATUS: TISHA EDMONDS NUM: [id number] CINDY: 03/30/22- [facility] DR: Emlo Vela DO ENTERED: 03/30/22 [facility] DR: Marquis Villalobos [facility] SPEC TYPE: Surgical DEPT: S ORDERED: HE Stain, Gross/Micro L2 ORDERED: HE Stain, Gross/Micro L2 Pathological Diagnosis Hernia sac, resection: Clinical Information Umbilical hernia Gross Description Received in formalin labeled with the patient's name, number and hernia sac is a 5.0 x 3.8 x 1.8 cm aggregate of yellow, lobular, focally hyperemic fat with a yellow, lobular cut surface.. Knit Goods Cutter Hand sections are submitted in one cassette labeled A1. Microscopic Description One glass slide with H E stained material has been examined. The microscopic findings support the above pathologic diagnosis. CPT Codes 03607 Specimen: [id number] Received: 03/30/22 Status: TISHA Rothwinston Num: [id number] Spec Type: Surgical Subm Dr: Elmo Vela DO Tissues: A Hernia Sac (HERNIA SAC) Procedures: HE Stain, Gross/Micro L2 Patient: Juan Francisco Carmen [id number] (Continued) Signed (signature on file) Tamika Rodriguez MD 04/02/22 1054 [facility] HospitalCovid-[facility] PCR (CVDTBH)on 03-28-2022 SARS-CoV-2 (COVID-19) RNA GEORGIE+probe Ql (Unsp spec)Not detectedNormalNOT DETECTED The [facility] Medical CenterComment on above:Result Comment: This test is not yet approved or cleared by the [place] FDA. When there are no FDA-approved or cleared tests available, and other criteria are met, FDA can make tests available under an emergency access mechanism called an Emergency Use Authorization (EUA). The EUA for this test is supported by the [place] of Health and Human Service's (HHS's) declaration [...] consistent with SARS-CoV-2.Performed By: #### CVDTBH #### [facility] [address] [place] [address] Dr. Renny PatelCLINTON COUNTY [facility] AUTO DIFFon 78-64-7230NBMH #0.0 103/ulNormal0.0-0.1The [facility] Medical CenterComment on above:Performed By: #### CBC #### [facility] [address] [place] [address] Dr. Renny PatelBasophils/100 WBC (Bld)0.2 %Normal0.2-2.0The [facility] Comment on above:Performed By: #### CBC #### [facility] [address] [place] [address] Dr. Renny Harrgove #0.0 103/ulNormal0.0-0.7The [facility] Medical CenterComment on above: Performed By: #### CBC #### [facility] [address] [place] [address] Dr. Renny Yangosinophils/100 WBC (Bld)0.2 %Critically low0.9-7.0The [facility] CenterComment on above:Performed By: #### CBC #### [facility] [address] [place] [address] Dr. Renny Yangrythrocyte distribution width (RBC) [Ratio]12.8 %Yqiera04.0-15.0 The [facility] CenterComment on above:Performed By: #### CBC #### [facility] [address] [place] [address] Dr. Renny PatelHematocrit (Bld) [Volume fraction]45.1 %Txcvkp02.0-54.0The [facility] CenterComment on above:Performed By: #### CBC #### [facility] [address] [place] [address] Dr. Renny PatelHemoglobin (Bld) [Mass/Vol]14.7 g/nMOigleg46.0-18.0The [facility] CenterComment on above:Performed By: #### CBC #### [facility] [address] [place] [address] Dr. Renny Ansari #0.03 10e3/ulNormal0.00-0.03The [facility] CenterComment on above:Performed By: #### CBC #### [facility] [address] [address] [address] Renny Ansari %0.4 %Normal0.0-0.5The [facility] CenterComment on above: Performed By: #### CBC #### [facility] [address] [place] [address] Dr. Renny Mar #1.9 103/ulNormal1.2-3.8The [facility] CenterComment on above:Performed By: #### CBC #### [facility] [address] [place] [address] Dr. Renny Collazohocytes/100 WBC (Bld)22.8 %Wgxpbn43.5-60.0The [facility] on above:Performed By: #### CBC #### [facility] [address] [place] [address] Dr. Renny Del RosarioUAL DIFF REQNONormalThe [facility] CenterComment on above: Performed By: #### CBC #### [facility] [address] [place] [address] Dr. Renny Arizmendi (RBC) [Entitic mass]29.1 cqMfubzu57.9-34.0The [facility] on above:Performed By: #### CBC #### [facility] [address] [place] [address] Dr. Renny Arizmendi (RBC) [Mass/Vol]32.6 g/zMVzeezr49.9-35.2The [facility] on above:Performed By: #### CBC #### [facility] [address] [place] [address] Dr. Renny Arizmendi (RBC) [Entitic vol]89.1 qZWayoxw56.0-94.0The [facility] on above:Performed By: #### CBC #### [facility] [address] [place] [address] Dr. Renny Bennett #0.7 103/ulNormal0.3-0.8The [facility] CenterComment on above:Performed By: #### CBC #### [facility] [address] [address] [address] Renny Lopezocytes/100 WBC (Bld)8.4 %Normal1.7-12.0The [facility] Comment on above:Performed By: #### CBC #### [facility] [address] [place] [address] Dr. Renny MackUT #5.8 103/ulNormal1.4-6.5The [facility] CenterComment on above:Performed By: #### CBC #### [facility] [address] [place] [address] Dr. Renny Mackutrophils/100 WBC (Bld)68.0 %Tatgoi74.0-75.0The [facility] CenterComment on above:Performed By: #### CBC #### [facility] [address] [place] [address] Dr. Renny PatelPlatelet mean volume (Bld) [Entitic vol]9.4 fLCritically low 9.5-13.5The [facility] CenterComment on above:Performed By: #### CBC #### [facility] [address] [place] [address] Dr. Renny PatelPLT247 103/hqRqxzmg005-064Mce [facility] CenterComment on above: Performed By: #### CBC #### [facility] [address] [place] [address] Dr. Renny PatelRBC5.06 106/ulNormal4.70-6.10The [facility] CenterComment on above:Performed By: #### CBC #### [facility] [address] [place] [address] Dr. Renny PatelWBC8.5 103/ulNormal4.0-11.0The [facility] CenterComment on above: Performed By: #### CBC #### [facility] [address] [place] [address] Dr. Renny PatelPROF 14(COMP METB)on 17-28-4403Ccnitsd [Mass/Vol]3.8 g/dLNormal 3.4-5.0The [facility] Centerment on above:Performed By: #### URIC, CMP #### [facility] [address] [address] [address] Renny PatelAlbumin/Globulin [Mass ratio]1.0 {ratio}NormalThe [facility] CenterComment on above:Performed By: #### URIC, CMP #### [facility] [address] [address] [address] Renny Coronado [Catalytic activity/Vol]54 U/LMmhaxu57-333Mzp [facility] CenterComment on above:Performed By: #### URIC, CMP #### [facility] [address] [address] [address] Renny Sal [Catalytic activity/Vol]60 U/OZhjrwn52-41Lug [facility] Centerment on above:Performed By: #### URIC, CMP #### [facility] [address] [address] [address] Renny Blankenshipon gap [Moles/Vol]8.7 mmol/LNormalThe [facility] CenterComment on above:Performed By: #### URIC, CMP #### [facility] [address] [address] [address] Renny PatelAST [Catalytic activity/Vol]22 U/KJrejnp26-01Hgt [facility] on above:Performed By: #### URIC, CMP #### [facility] [address] [address] [address] Renny PatelBilirubin [Mass/Vol]0.8 mg/dLNormal0.2-1.0The [facility] Comment on above:Performed By: #### URIC, CMP #### [facility] [address] [address] [address] Renny PatelCalcium [Mass/Vol]9.4 mg/dLNormal8.5-10.1The [facility] Comment on above:Performed By: #### URIC, CMP #### [facility] [address] [address] [address] Renny PatelChloride [Moles/Vol]104 mmol/FNbetis98-348Ihm [facility] Comment on above:Performed By: #### URIC, CMP #### [facility] [address] [address] [address] Renny PatelCO2 [Moles/Vol]27.6 mmol/PUlnmys00.0-32.0The [facility] Comment on above:Performed By: #### URIC, CMP #### [facility] [address] [address] [address] Renny PatelCreatinine [Mass/Vol]0.99 mg/dLNormal0.70-1.30The [facility] CenterComment on above:Performed By: #### URIC, CMP #### [facility] [address] [address] [address] Renny YangGFR-AF BOLIVIAN>60Normal>=60The [facility] CenterComment on above:Performed By: #### URIC, CMP #### [facility] [address] [address] [address] Renny YangGFR-NON AF BOLIVIAN>60Normal>=60The [facility] CenterComment on above:Performed By: #### URIC, CMP #### [facility] [address] [address] [address] Renny PatelGlobulin (S) [Mass/Vol]3.9 g/dLNormalThe [facility] CenterComment on above:Performed By: #### URIC, CMP #### [facility] [address] [address] [address] Renny PatelGlucose [Mass/Vol]123 mg/dLCritically qpkz65-015Ngh [facility] CenterComment on above:Performed By: #### URIC, CMP #### [facility] [address] [address] [address] Renny PatelPotassium [Moles/Vol]4.3 mmol/LNormal3.5-5.1The [facility] Comment on above:Performed By: #### URIC, CMP #### [facility] [address] [address] [address] Renny PatelProtein [Mass/Vol]7.7 g/dLNormal6.4-8.2The [facility] Comment on above:Performed By: #### URIC, CMP #### [facility] [address] [address] [address] Renny PatelSodium [Moles/Vol]136 mmol/HFtbhok022-627Pwb [facility] Comment on above:Performed By: #### URIC, CMP #### [facility] [address] [place] [address] Dr. Renny PatelUrea nitrogen [Mass/Vol]15.0 mg/dLNormal7.0-18.0[facility] HospitalComment on above:Performed By: #### URIC, CMP #### [facility] [address] [place] [address] Dr. Renny PatelUrea nitrogen/Creatinine [Mass ratio]15.2 mg/mgNoalThMercer County Community HospitalComment on above:Performed By: #### URIC, CMP #### [facility] [address] [place] [address] Dr. Renny PatelURIC ACID SERUMon 51-29-4285Ubqyl [Mass/Vol]4.9 mg/dLNormal 3.5-7.2[facility] HospitalComment on above:Performed By: #### URIC, CMP #### [facility] [address] [place] [address] Dr. Renny Patel Vital Signs Date TimeVital SignValuePerforming MkgstilldOnhvagsj51-49-8075 08:040Body qzqent991 cmDk Diaz MD Work Phone: [facility] NorthEdupdgkvas11-79-3633 08:230400Body mass index (BMI) [Ratio]31.46 kg/g4TodacqDk Diaz MD Work Phone: [phone] NorthNxjlowldmm69-26-4895 08:Body sutpfr252.13 kgDk Diaz MD Work Phone: [phone]-[facility] NorthCssxhvdozt43-33-4344 08:040Diastolic blood yzttmjqc12 mm[Hg]Dk Diaz MD Work Phone: [phone]-[facility] NorthFcilraudji93-20-2544 08:23-0400Systolic blood eoxjodpl208 mm[Hg]Dk Diaz MD Work Phone: [facility] NorthXqsceskhfq33-25-3363 08:02-0400Body kplyyy033 cm Dk Diaz MD Work Phone: [phone]-1513C[facility] NorthUmpkdhfsjp12-44-5745 08:02-0400Body mass index (BMI) [Ratio]30.83 kg/p7GteavqDk Diaz MD Work Phone: [phone] [place], [place] 5401707-15-2025 08:02-0400Body eyqqkn772.3 kgDk Diaz MD Work Phone: [phone] [place], [place] 5401707-15-2025 08:02-0400Diastolic blood iovwirzg00 mm[Hg]Dk Diaz MD Work Phone: [phone] NorthBrgdgvtryt67-19-2765 08:02-0400Heart rate67 /min Dk Diaz MD Work Phone: [phone])[facility] NorthPsbiueuttc33-56-8928 08:02-0400Systolic blood tqaetrxg785 mm[Hg]Dk Diaz MD Work Phone: [facility] NorthVtcmxqsrey84-21-9482 11:55-0500Body temperature 98.4 [degF]Cece Xie MD Work Phone: [facility]12-12-2024 11:55-0500Diastolic blood alimayqj42 mm[Hg]Cece Xie MD Work Phone: [facility]12-12-2024 11:55-0500Heart rate69 /Umu Xie MD Work Phone: [facility]12-12-2024 11:55-0500 Respiratory rate16 /Umu Xie MD Work Phone: [facility]12-12-2024 11:55-5680RnS3% (BldA) [Mass fraction]97 %Cece Xie MD Work Phone: [facility]12-12-2024 11:55-0500Systolic blood bdeaiuxa752 mm[Hg]Cece Xie MD Work Phone: [facility]12-10-2024 11:43-0500Body nfjyme149.5 cmSelkelly Xie MD Work Phone: [facility]12-10-2024 11:43-0500Body mass index (BMI) [Ratio]30.87 kg/y5IqodhrCece Xie MD Work Phone: [facility]12-10-2024 11:43-0500Body qvxlwi793.04 kgCece Xie MD Work Phone: [facility]11-20-2024 09:06-0500Blood Pressure LocationKathy Lue [facility]11-20-2024 09:06-0500Diastolic blood mm[Hg]Maura Lue [facility]11-20-2024 09:06-0500Heart rate62 /minKathy Lue [facility]11-20-2024 09:06-0500Systolic blood fnnyvtcr816 mm[Hg]Maura Lue [facility]09-11-2024 09:11-0400Blood Pressure LocationKathy Lue [facility]09-11-2024 09:11-0400Diastolic blood tfognjrq97 mm[Hg]Maura Lue [facility]09-11-2024 09:11-0400Heart rate78 /minKathy Lue [facility]09-11-2024 09:11-0400Respiratory rate16 /minKathy Lue [facility]09-11-2024 09:11-0400Systolic blood dovzelsk004 mm[Hg]Maura Lue [facility]05-14-2024 15:28-0400Diastolic blood jktyxrqr17 mm[Hg]JUSTO ARIES [facility]05-14-2024 15:28-0400Mean blood mm[Hg]JUSTO ARIES [facility]05-14-2024 15:28-0400Systolic blood icdouafq188 mm[Hg]JUSTO ARIES [facility]05-14-2024 15:16-0400Blood Pressure LocationJENNIFER ARIES [facility]05-14-2024 15:16-0400Diastolic blood csblgyfp39 mm[Hg]JUSTO ARIES [facility]05-14-2024 15:16-0400Heart rate87 /minJENNIFER ARIES [facility]05-14-2024 15:16-0400Systolic blood gptxwjoe372 mm[Hg]JUSTO ARIES [facility] Encounters Encounter DateEncounter TypeCare ProviderFacilityStart: 91-85-5058cxntsdvkcn Maura Torres LueFacility:EU [place]vueStart: 67-48-0486rrvvzinasbFtmqiu Anamika Facility: [place]Start: 02-23-2025 End: 31-74-6830Zwqbudmiguelito Diaz MD Work Phone: noms [facility] OtolaryngologyStart: 02-23-2025 End: 79-23-0712Jfzupj Maxwell Diaz MD Work Phone: noms [facility] OtolaryngologyStart: 02-23-2025 End: 45-67-9836Pdvlao outpatient visit 15 minutesDk Diaz MD Work Phone: noms [facility] OtolaryngologyComment on above:Conductive hearing loss of left ear with unrestricted hearing of right ear (Primary Dx); Referred otalgia of left earStart: 02-23-2025 End: 34-52-8358zeeqtorqaoPGHLCB H TIMMISNot AvailableStart: 02-12-2025 End: 25-52-4890knpfkkptuqGyuvdk H TimmisFacility:FTMCStart: 02-12-2025 End: 98-43-3827Cdvpuojii Result EncounterDk Diaz MD Work Phone: noms External Department UnsolicitedStart: 02-12-2025 End: 42-30-6442Vmwwljgle Result EncounterDk Diaz MD Work Phone: noms External Department UnsolicitedStart: 02-12-2025 End: 03-25-6025njyhidvruwRnijy J YouskoFacility:FTMCStart: 02-05-2025 End: 24-59-6398Buvvfeaxn encounterDk Diaz MD Work Phone: noms CI ENTComment on above:CT and rx to Dr Michelle Start: 02-02-2025 End: 01-47-1654Nvkorr Maxwell Diaz MD Work Phone: noms CI ENTStart: 02-02-2025 End: 01-39-7409Mjckvo flowsheetDk Diaz MD Work Phone: noms CI ENTStart: 02-02-2025 End: 24-91-0815Gqdzmv outpatient new 45 minutesHilary Shanika Diaz MD Work Phone: noms CI ENTComment on above:Mixed conductive and sensorineural hearing loss of left ear with restricted hearing of right ear (Pr imary Dx); Pulsatile tinnitus of left earStart: 02-02-2025 End: 05-83-3403jqkwsrqaiiTPSWDD H TIMMISNot AvailableStart: 12-30-2024 End: 42-62-5619uudqwyxziaCwmvtg TannaFacility:EU [place]vueStart: 12-30-2024 End: 37-29-4096Yrjsqii encounter procedureLauren Anamika [facility] start: 58-80-5291xcwbjrvwgkPONFSZK P HOUSEFacility:[facility] ClinicStart: 11-30-2024 End: 85-11-0548txmoldhizmYYTBCUR P HOUSEFacility:[facility] HospitalStart: 48-32-4131ulriabrsymSULGFTT P HOUSEFacility:[facility] ClinicStart: 11-19-2024 End: 46-93-4508hhfnswwpxrUZWERCO P HOUSEFacility:[facility] ClinicStart: 10-28-2024 End: 79-31-1077omgwzggmhiMepqqa TannaFacility:EU [place]Start: 07-27-2024 End: 19-79-7097Uxghrt Mauricio WHITESIDE Work Phone: noms SWS ORTHOStart: 07-27-2024 End: 45-98-0686Zioccs Mauricio WHITESIDE Work Phone: noms SWS ORTHOStart: 07-27-2024 End: 52-82-9622ezirvaocneLDWCQRC J MEYERNot AvailableStart: 07-27-2024 End: 84-72-9873Entesn outpatient visit 15 minutesMattmilton WHITESIDE Work Phone: noms [facility] ORTHOComment on above:Acute pain of right knee (Primary Dx); Acute pain of left knee; History of bilateral knee replacementStart: 06-30-2024 End: 85-84-5651Rjrfxivnmd and management of inpatientSinga Xie MD Work Phone: stRZ Orthopedics 7KComment on above:Lumbar stenosis with neurogenic claudication (Primary Dx)Start: 06-26-2024 End: 70-93-9091Xaxhlcuyf for preprocedural laboratory examinationSELKELLY [facility] CenterStart: 88-74-5992Pcwmnwbzj for other preprocedural examinationDONSHASHA [facility] CenterStart: 06-26-2024 End: 13-91-6609Cqxqirvaljprr examination doneStr [facility] Work Phone: Start: 06-26-2024 End: 68-04-5777dormoiqsejLVCSWM [facility] CenterStart: 06-26-2024 End: 06-20-0923Lzhxynobhh hospital visit by physicianStr Xr 1 Op ExpressSTRZ Outpt ExpressComment on above:Pre-op evaluationStart: 06-10-2024 End: 22-67-4425Kogttz flowsheetJr. Hudson Keller DO Work Phone: noms [facility] ORTHOStart: 06-10-2024 End: 96-31-5567Kovzua flowsheetJrJennifer Keller DO Work Phone: noms [facility] ORTHOStart: 06-10-2024 End: 10-35-5806Mnjgfwz encounter Mariann Payne [facility] start: 06-10-2024 End: 48-62-9676Ecnphj outpatient visit 15 minutesJr. Hudson Fisher Stepjewel DO Work Phone: [facility] SWS ORTHOComment on above:Lumbar back pain with radiculopathy affecting left lower extremity (Primary Dx); Acute pain of left knee; History of left knee replacementStart: 06-10-2024 End: 91-04-8057gyswtwvuloYprsp MJennifer LueFacility:EU [place]vueStart: 06-01-2024 End: 01-01-2112xikdbrvpcyUCZZIIXM Stephen VARGASERNot AvailableStart: 06-01-2024 End: 14-08-4236Cthfle flowsheetJonathan D Zahler DO Work Phone: [facility] NB OPHTStart: 06-01-2024 End: 70-09-3186Fhughk flowsheetJonathan D Zahler DO Work Phone: [facility] NB OPHTStart: 05-19-2024 End: 63-34-3307Jmnprj flowsheetJonathan D Zahler DO Work Phone: [facility] NB OPHTStart: 05-19-2024 End: 52-53-8006Ipiyxv flowsheetJonathan D Zahler DO Work Phone: NO[facility] NB OPHTStart: 05-19-2024 End: 53-49-9831pyufawyphoTCCQVODM D ZAHLERNot AvailableStart: 05-19-2024 End: 34-13-4760Uliocj outpatient new 45 minutesJonatgeorge Mitchell Zahler DO Work Phone: [facility] NB OPHTComment on above:Age-related nuclear cataract of both eyes (Primary Dx)Start: 80-15-9149mwvmppcsaiEckxer X Orzech Facility: [place]Start: 04-15-2024 End: 74-69-6468Sxfsgc flowsheetJr. Hudson Fisher Stepjewel DO Work Phone: noms SWS ORTHOStart: 04-15-2024 End: 73-64-1157Cefion flowsheetJr. Hudson Fisher Stepjewel DO Work Phone: noms SWS ORTHOStart: 04-15-2024 End: 40-10-2999Ekbavf outpatient visit 25 minutesJr. Hudson Keller DO Work Phone: noms SWS ORTHOComment on above:Lumbar back pain with radiculopathy affecting left lower extremity (Primary Dx)Start: 04-15-2024 End: 84-13-2636mjsxhvrjflFJ., HUDSON Saldaña AvailableStart: 04-01-2024 End: 36-17-6169ozfjmpkfeeEgxme M. LueFacility:EU [place]vueStart: 04-01-2024 End: 40-65-7526Ywsfunu encounter procedureMaura Payne [facility] start: 03-11-2024 End: 49-32-5634Wqvlvz flowsheetJr. Hudson Keller DO Work Phone: noms SWS ORTHOStart: 03-11-2024 End: 97-97-0958Witytt flowsheetJr. Hudson Keller DO Work Phone: noms SWS ORTHOStart: 03-11-2024 End: 30-76-0793Cggddr outpatient visit 25 minutesJr. Hudson Keller DO Work Phone: noms SWS ORTHOComment on above:Lumbar back pain with radiculopathy affecting left lower extremity (Primary Dx)Start: 03-11-2024 End: 66-55-6143eucfhobclzDJ., HUDSON Saldaña AvailableStart: 03-05-2024 End: 51-18-9759Pradkxaom Result EncounterMattmilton WHITESIDE Work Phone: noms External Department UnsolicitedStart: 03-05-2024 End: 09-66-6507Vmuoqhayq Result EncounterMabethany WHITESIDE Work Phone: noms External Department UnsolicitedStart: 02-10-2024 End: 42-07-2064Hucqyhh encounter procedureMaura Payne [facility] Start: 12-11-2023 End: 96-46-2108Tmv-SiteMaura Payne [facility] Isidoro Start: 12-03-2023 End: 35-28-2713Epicnhn encounter procedureJESHEILA CHRIS [facility] Jonathan start: 92-66-2588Lkajxzvmc for preprocedural laboratory examinationDR ELMO WALDROPCleveland Clinic HospitalStart: 03-30-2022 End: 29-13-3222mijlvavqloUpfh LaffaesterFacility:[facility] Start: 03-30-2022 End: 58-51-0444Ikkpvbcz [facility] Elmo Vela Work Phone: [facility] CampusStart: 03-28-2022 End: 62-38-3623vojlklvmejAQ PAUL C LAFFAYFacility:D6Wmtjl: 03-28-2022 End: 98-50-5034Qityqftgi for preprocedural laboratory examinationDR ELMO VELAFacility:D0Alpak: 36-10-2274tspwjgiwnqST RICHARD M WIECEKFacility:O0Psxjx: 19-54-7683Gdfosokgq for preprocedural cardiovascular examinationDR ELMO Kunz [facility] HospitalStart: 02-27-2022 End: 51-57-5345Euwmbquzn for preprocedural cardiovascular examinationDR ELMO VELAFacility:X5Qmyxm: 02-27-2022 End: 96-77-6981boccjtsfujZB PAUL C LAFFAYFacility:Q2Lqwcj: 01-17-2022 End: 12-90-0633grxybsapxtRS CHARLES HOUSEFacility:H1 Procedures DateProcedureProcedure DetailPerforming ClinicianStart: 12-02-5800EX ORBIT SELLA IAC W/ CONTRASTHilary H Yao GÓMEZ Work Phone: Start: 21-58-3396Wuhmynqosu examination knee 1/2 views Marci WHITESIDE Work Phone: Start: 01-29-2065Nprbyqento examination knee 1/2 views Marci WHITESIDE Work Phone: Start: 07-55-5002Nyycc gap [Moles/Vol]Victor Manuel D. Palte PA-C Work Phone: Start: 88-09-5174Andff metabolic panel calcium total Victor Manuel Ezra Palte PA-C Work Phone: Start: 95-16-1672AYKFPOAZJH FILTRATION RATE, ESTIMATED Victor Manuel Ezra Palte PA-C Work Phone: Start: 32-37-5799Dcehf gap [Moles/Vol]Victor Manuel D. Palte PA-C Work Phone: Start: 22-51-3784Lprzq metabolic panel calcium total Victor Manuel MitchellJennifer Palte PA-C Work Phone: Start: 40-95-6824ZJJIKXMFRK FILTRATION RATE, ESTIMATED Victor Manuel Ezra Palte PA-C Work Phone: Start: 15-16-1981Uiwon spine 1 view specify level Cece Xie MD Work Phone: Start: 06-30-2024 End: 97-30-3828Raxucxqd post/posterolatrl/postinterbody lumbarSelvon Urban Xie MD Work Phone: Start: 06-30-2024 End: 89-25-5131Rngdnzwyq spine surgery local from same incisionSinga Xie MD Work Phone: Start: 06-30-2024 End: 15-19-9244Hdv facetectomy & foramotomy 1 segment lumbarSelvon Urban Xie MD Work Phone: Start: 06-30-2024 End: 95-55-3586OX PARRISH FACETEC/FORAMOT DRG ARTHRD LMBR EA ADDL Patti Xie MD Work Phone: Start: 06-30-2024 End: 81-76-6218XF PARRISH FACETEC/FORAMOT DRG ARTHRD LUMBAR 1 VRT Patti Xie MD Work Phone: Start: 78-78-1407Ftdbgbsa screenSelkelly Xie MD Work Phone: Comment on above:Performed at [facility] [address] [place] [id number]: 68-21-2199Lqjad typing serologic aboAlexis Mayo WHITESIDE Work Phone: Start: 70-30-6658Qvbpt gap [Moles/Vol]Cece Xie MD Work Phone: Start: 61-23-1146Mlvjb metabolic panel calcium total Cece Xie MD Work Phone: Start: 32-41-3509RYEGYSARGO FILTRATION RATE, ESTIMATED Cece Xie MD Work Phone: Start: 28-63-5012Iqx routine ecg w/least 12 lds w/i&r [facility] PA-CStart: 01-49-4031Bolttjaryh exam chest 2 [facility] PA-CStart: 42-72-4285Rfewhhzlcux resistant Staphylococcus aureus (MRSA) DNA [Presence] in Unspecified specimen by GEORGIE with probe detectionSeira Xie MD Work Phone: Start: 06-01-2024 End: 33-79-0195Uxdeu medical xm&eval intermediate estab ptAge-related nuclear cataract of both eyesIvan Ba DO Work Phone: comment on above:Age-related nuclear cataract of both eyes (Primary Dx)Start: 36-11-5859Ahw bmtry prtl coher intrfrmtry io lens pwr calIvan Ba DO Work Phone: Start: 66-24-7515ZU LUMBAR SPINE WO CONMarci WHITESIDE Work Phone: Start: 63-46-8067Bogfq knee replacementJESHEILA CHRIS Start: 53-72-6752LBJ screeningDR COLT HOUSEComment on above:Performed By: #### PSAD #### [facility] [address] [place] [address] Dr. Lawson ChangStart: 82-79-5480Dwejv knee replacementJENNIFER ARIES Start: 39-47-7543UnnbtiqlojjAt. Arianna DO Work Phone: Herniated structure (morphologic abnormality)JUSTO CHRIS History of operative procedure on kneeHistory of left knee replacementJr. Hudson Fisher Arianna DO Work Phone: History of operative procedure on kneeHistory of bilateral knee replacementMarci WHITESIDE Work Phone: Insertion of hip prosthesisJUSTO CHRIS Knee region structure (body structure)JUSTO CHRIS Plan of Treatment DateCare ActivityDetailAuthorStart: 67-45-9396Efepenxksmk Syncytial Virus (RSV) or age 60 yrs+ (1 - 1-dose 75+ series)Respiratory Syncytial Virus (RSV) or age 60 yrs+ (1 - 1-dose 75+ series)[facility] CenterStart: 26-92-2079DGaW/Tdap/Td vaccine (2 - Td or Tdap)DTaP/Tdap/Td vaccine (2 - Td or Tdap)[facility] CenterStart: 01-17-2607Vgrdrplpn for malignant neoplasm of colonNOMS HealthcareStart: 86-56-6069Nxjcscyjn for malignant neoplasm of colonFIT-DNANOMS HealthcareStart: 07-25-2026 End: 70-29-3422Rljpfde encounter procedureNOMS SWS ORTHOStart: 09-01-2025 End: 82-91-6123Dikiboc encounter dnccvjxav79/11/2026 8:00 AM EST Office Visit [facility] [address] [facility] [address] [place] [id number] Dk Diaz MD 112 [address] [place] [address] [facility] [place] OtolaryngologyStart: 08-25-2025 End: 75-78-9855Tutnukqe Igrxidv5808/25/2025 8:00 AM EST Clinical Support [facility] [place] [facility] [address] [facility] [address] [place], [id number] Brooke Gonzalez, [facility] [address] [facility]anon[facility] [place] [address] [facility] [place] AudiologyStart: 06-10-2025 End: 15-16-7608Bycxhgi encounter procedureNOMS [facility] ORTHOStart: 06-07-2025 End: 31-67-9658Jckffkr encounter hzjvkmjwi70/17/2025 8:00 AM EST Office Visit [facility] [place] [facility] [address] [facility] [address] [place], [place] Marci Ponce, PA [address] [place] [address] [facility] [place] OrthopaedicsStart: 96-20-2342UMXMR-19 Vaccine ( season)COVID-19 Vaccine ( season)[facility] HealthcareStart: 73-13-4149Pjhbejikx vaccinationInfluenza Vaccine (#1)[facility] HealthcareStart: 03-02-2025 End: 74-70-4165Legtiko encounter procedureNOMS CI ENTStart: 02-23-2025 End: 15-01-7920Ebegolo encounter eczrdzhai24/05/2025 8:30 AM EDT Office Visit [facility] [place] [facility] [address] [facility] [address] [place] [address] Dk Diaz MD [address] [facility] [address] [place] [address] ArrivedNOMS [place] OtolaryngologyComment on above:ArrivedStart: 02-02-2025 End: 08-59-8308Pxpnwhj encounter iuwkmehlc69/15/2025 8:10 AM EDT Office Visit [facility] [address] [facility] [address] [place] [address] Dk Diaz MD [address] [facility] [address] [place] [address] ArrivedNOMS CI ENTComment on above:ArrivedStart: 07-27-2024 End: 93-33-3019Ozdvnsl encounter loiywfoay29/06/2025 8:00 AM EST Office Visit [facility] [address] [facility] [address] [place] [address] Marci Ponce PA [address] [facility] [address] [place] [address] N[facility] CI ORTHOPAEDICSStart: 06-30-2024 End: 50-25-7268Swmbsqqoj to same day surgery mbnios7106/30/2024 2:45 PM EST - 06/30/2024 5:39 PM EST Surgery [facility] OR [address] [place] [address] [phone] Cece Xie MD [address] [place] [address] [place] [address] L4-S1 Decompression and Fusion, L4-L5 TLIFSTRZ ORComment on above:L4-S1 Decompression and Fusion, L4-L5 TLIFStart: 06-30-2024 End: 63-08-4807Xuppimer post/posterolatrl/postinterbody lumbarLUMBAR LAMINECTOMY FUSION INSTRUMENTATION POSTERIOR Degeneration of intervertebral disc of lumbar region, unspecified whether pain present 06/30/2024 2:45 PM ESTSTRZ ORStart: 51-36-2976Isvtinnygw hospital visit by wxteubyac95/10/2024 2:45 PM EST Hospital Encounter [facility] OR [address] [facility] [place] [place] [address] Cece Xie MD [address] [place] [address] [place] [address] [facility] ORStart: 06-10-2024 End: 40-52-5952Mebvpbz encounter procedureNOMS SWS ORTHOComment on above:Arrived Start: 06-01-2024 End: 91-48-4964Unjeqkz encounter rqflriold22/11/2024 3:15 PM EST Office Visit [facility] [address] [place] [address] Ivan Ba, DO [address] [place] [address] NOMS NB OPHTStart: 05-19-2024 End: 16-93-3959Xuqzjma encounter /29/2024 9:15 AM EDT Office Visit [facility] [address] [place] [address] Ivan Ba, DO [address] [place] [address] NOMS NB OPHTStart: 04-15-2024 End: 39-68-8636Tsnbslf encounter procedureNOMS SWS ORTHOComment on above:Arrived Start: 99-82-1691PPSOA-19 Vaccine ( season)COVID-19 Vaccine ( season)[facility] Center[facility]: 30-34-0170Qnknyzcny vaccination Influenza Vaccine (#1)[facility] HealthcareStart: 03-11-2024 End: 21-33-2147Wapoywf encounter qiuewbgey47/21/2024 8:00 AM EDT Office Visit [facility] ORTHO [address] [place] [phone] Jr. Arianna Hudson , DO [address] [facility] [address] [place] [address] [facility] ORTHOComment on above: ArrivedStart: 16-39-2551Esplptfsp vaccinationFlu vaccine (#1)[facility] CenterStart: 66-19-3637Uwjkssqr vaccine (1 of 2)Shingles vaccine (1 of 2)[facility] CenterStart: 86-07-2974Tsiloyiiz for malignant neoplasm of colon [facility] CenterStart: 09-74-9603Gtzbhaae screenDiabetes screenRussell County Medical CenterStart: 35-50-7045Agplfmvek C screeningHepatitis C screenRussell County Medical CenterStart: 11-49-4044CFU screeningHIV screenRussell County Medical CenterStart: 13-54-6840Lnxaikafpm ScreenDepression ScreenRussell County Medical CenterStart: 55-98-0553Ddduf panelLipidsRussell County Medical CenterStart: 41-09-4961GDcX/Tdap/Td Vaccines (1 - Tdap)DTaP/Tdap/Td Vaccines (1 - Tdap)[facility] NorthStart: 84-27-2628XTY Vaccines (1 of 1 - Standard series)MMR Vaccines (1 of 1 - Standard series)[facility] NorthStart: 36-21-8935Jtfvfiouv for malignant neoplasm of colonUINTAH BASIN [facility] Healthcare End: 15-06-8885Qystb metabolic 2000 panel - Serum or PlasmaBasic Metabolic Panel Lab Routine Daily for 3 Days starting 07/01/2024 until 07/03/2024, 2 completed [facility] CenterComment on above:Daily for 3 Days starting 07/01/2024 until 07/03/2024, 2 completed End: 35-13-1911Txidigsreu and hematocrit, bloodHemoglobin and hematocrit, blood Lab Routine Daily for 3 Days starting 07/01/2024 until 07/03/2024,2 [facility] above:Daily for 3 Days starting 07/01/2024 until 07/03/2024, 2 completedOxygen therapy [Minimum Data Set]Initiate Oxygen Therapy Protocol Respiratory Care Routine As Needed until discontinued starting 06/21 0 [facility] on above:As Needed until discontinued starting 06/30/2024Spirometry panelIncentive spirometry Respiratory Care Routine Every 2hr while awake until discontinued starting 06/30/2024on [facility] on above:Every 2hr while awake until discontinued starting 06/30/2024 Immunizations Immunization DateImmunizationNotesCare EeeumguzKrxsfbma82-86-7458rjmpsrtua virus vaccine, unspecified formulationJENNIFER ARIES [facility]10-19-2023tetanus toxoid, reduced diphtheria toxoid, and acellular pertussis vaccine, adsorbedJENNIFER ARIES [facility]04-06-2021SARS-CoV-2 (COVID-19) mRNA BNT-162b2 vaxJENNIFER ARIES [facility]03-16-2021SARS-CoV-2 (COVID-19) mRNA BNT-162b2 vaxJENNIFER ARIES [facility]11-13-2018influenza virus vaccine, unspecified formulationJENNIFER ARIES [facility]11-13-2018seasonal influenza, intradermal, preservative freeJr. Stepanic DO Work Phone: [facility] Payers DatePayer CategoryPayerPolicy [id number] [id number] Health Insurance [id number] [facility] [id number] 2022-Present [phone] [address] [place] [id number] 80-52-4598Ijal-[id number] 2.16.840.1.795342.3.579.2.593 [id number] 2.16.840.1.872810.3.579.[id number] 2.16.840.1.359467.3.579.2.42164-44-9242Acwrujw3389560 2.16.840.1.123630.3.579.2.08195-01-8313Fuipbxx3095518 2.16.840.1.212689.3.579.2.02463-16-5503Emvqqea641628410 2.16.840.1.526985.3.579.2.[id number] 2.16.840.1.753746.3.579.2.5016-27-4147Dmduyqk679643930 2.16.840.1.187408.3.579.2.8418-45-3234Pddodrt758333763 2.16.840.1.542975.3.579.2.1736-45-0405Uwktkez68865960 2.16.840.1.131763.3.579.2.89792-67-2893Luijsle90115053 2.16.840.1.688872.3.579.2.46518-08-8148Omsqtzg83865795 2.16.840.1.351925.3.579.2.08437-50-0102Luajycz26064092 2.16.840.1.558468.3.579.2.06076-75-0337Ycadjyl99230600 2.16.840.1.608171.3.579.2.79119-32-4549Vlhzmze81323919 2.16.840.1.790771.3.579.2.71580-89-1534Rblgbna95987715 2.16.840.1.407925.3.579.2.78781-43-0523Ttoptev90665320 2.16.840.1.039209.3.579.2.34134-02-1025Nyvkxxd43711127 2.16.840.1.379826.3.579.2.03780-15-4929Blfprsw04994389 2.16.840.1.451239.3.579.2.34707-95-5231Lejyhon85762476 2.16.840.1.912660.3.579.2.90810-72-6083Pdvrhjq50677844 2.16.840.1.621550.3.579.2.40914-86-4636Cyyuonu35134979 2.16.840.1.385666.3.579.2.55152-77-3234Mramrsq41478580 2.16.840.1.910083.3.579.2.469133-09-4288Spvqdny84837657 2.16.840.1.923259.3.579.2.660994-08-7864Wyyxziw5403719 2.16.840.1.659197.3.579.2.063457-90-8012Zxmxxnc8981291 2.16.840.1.969967.3.579.2.308732-76-3963Eriurhx6807110 2.16.840.1.012450.3.579.2.683138-43-4661Rceckgv2636494 2.16.840.1.140353.3.579.2.970263-56-3853Eznubbk5319056 2.16.840.1.372696.3.579.2.812172-42-2230Ndnfbsf7586253 2.16.840.1.635511.3.579.2.892984-27-3754Xwgbima0618962 2.16.840.1.592953.3.579.2.230940-66-7074Yfnmowx2365966 2.16.840.1.963272.3.579.2.388348-97-7865UeibajeT4378389619Swlzlea65372969 2.16.840.1.536257.3.579.2.531 Social History DateTypeDetailFacilityTobacco smoking status NHISUnknown if ever smokedPomerene Hospital Work Phone: Start: 43-88-3823Xaq Assigned At [facility] Hospitaltart: 12-28-2022 End: 59-14-4848Xgasmbx smoking statusNever smoked tobacco (finding)[facility] HospitalueStart: 16-82-3061Maopxac smoking statusNeverExecutive Urology of [facility] Medical Centertart: 04-15-2024 End: 04-71-1283Yub Assigned At [facility] Hospitaltart: 12-28-2022 End: 76-43-4213Amflrcr use and exposureSmokeless tobacco non-userNOMS Healthcare Start: 02-04-2024 End: 74-58-2764Foygdqyls beverage intakeCurrent drinker of alcohol (finding)[facility] HealthcareStart: 04-15-2024 End: 49-15-0791Unchjaf of Social functionNOMS HealthcareStart: 67-60-5734Melbtar Commentcaffeine intake:2-3 cups/dayUINTAH BASIN MEDICAL CENTER HealthcareStart: 78-68-3913Snm assigned at birthNot on fileUINTAH BASIN MEDICAL CENTER HealthcareStart: 91-93-2416Abkmhx identityIdentifies as male gender (finding)[facility] HealthcareStart: 36-85-7633Uqrpjlw CommentsociallyBon Maurice Zamora HealthSexual OrientationExec[facility] sexMale (finding)[facility] Medical Equipment Procedure CodeEquipment CodeEquipment Original TextEquipment IdentifierDates System Seal 5ml Spine Dura Hydrgel Polyeth Glycol - [id number], [id number] FDAStart: 21-22-0938Qcz Screw 5.5-6.0 - [id number]_zduOchdk: 29-11-9167Mqbyg Poly Solid 7.5x45 - [id number]_dybRdiqd: 60-03-6521Goedm Poly Solid 7.5x50 - [id number]_impStart: 56-06-9653Oir Ti Prebent 5.5x60 - [id number]_omcKxokz: 39-57-1217Yhj Ti Prebent 5.5x65 - [id number]_xytYnvha: 06-30-2024 Functional Status LbujKauednfobfNwdyqlZhhvbzeo42-96-4485Eoxfluwpcf StatusN/AExec[facility]09-11-2024Functional StatusN/A[facility]07-22-2024Functional StatusN/A [facility]05-14-2024Functional StatusN/AExec[facility] Clinical Notes 12-03-2023 to 02-23-2025 Note Date & CmryAsqdJpvfatah89-11-3761 History of Present illness Narrative* Dk Diaz MD - 02/23/2025 8:30 AM EDT Subjective Patient ID: Juan Francisco Carmen is a 59 y.o. male who presents for Ear Problem ([facility] [place] [facility] 02/12/25) CT reviewed and there is no [...] neuropathy, without long-term current use of insulin ([facility]) 02/01/2025 Resolved Ambulatory Problems Diagnosis Date Noted [...] surgeon specializing in TMJ documented in this encounterNORusk Rehabilitation CenterOtzmbqnves23-64-4639 Telephone encounter Note* Telephone Encounter - Liv Diaz - 02/05/2025 10:52 AM EDT Called pt/pt verbalized understanding. [facility] NorthViizyhiodz31-22-2453 Miscellaneous Notes* Telephone Encounter - Liv Diaz - 02/05/2025 10:52 AM EDT Called pt/pt verbalized understanding. * Telephone Encounter - Yasemin Gibson MA - 02/05/2025 10:[address] CX at [facility] and Sent to [facility] * Telephone Encounter - Dk Diaz MD - 02/05/2025 9:14 AM EDT Cx [facility] order. Send order to [facility] [place] temporal bone with contrast. Dx- Pulsatile tinnitus. Pt needs to contact Dr Michelle himself to get something to help him sleep. * Telephone Encounter - Liv Diaz - 02/05/2025 9:00 AM EDT Pt called in, he said his insurance company told him [facility] no longer does CT's and to send the order to [facility] to have his CT done there. Also, at his appt he said there was going to be something sent to Dr Michelle to help him sleep . Pt wants to know if this was done. documented in this encounterCox NorthNklokydqtp48-91-9714 Telephone encounter Note* Telephone Encounter - Yasemin Gibson MA - 02/05/2025 10:[address] CX at [facility] and Sent to [facility] Ktqeilabbd53-21-0006 Telephone encounter Note* Telephone Encounter - Dk Diaz MD - 02/05/2025 9:14 AM EDT Cx [facility] order. Send order to [facility] [place] temporal bone with contrast. Dx- Pulsatile tinnitus. Pt needs to contact Dr Michelle himself to get something to help him sleep. [facility] [employer] Work Phone: [phone]) 640-324207-18-2025 Telephone encounter Note* Telephone Encounter - Liv Diaz - 02/05/2025 9:00 AM EDT Pt called in, he said his insurance company told him [facility] no longer does CT's and to send the order to [facility] to have his CT done there. Also, at his appt he said there was going to be something sent to Dr Michelle to help him sleep . Pt wants to know if this was done. [facility] Mvwhunenfz83-58-7142 History of Present illness Narrative* Dk Diaz [...] for a glomus tumor. documented in this encounterCox NorthCrvuclydgx81-63-0561 Hospital Discharge instructions Patient Education 12/30/2024 09:09:15 [...] urethra. Follow these instructions at home: Take wgiy-xxc-kzrbais and prescription medicines only as told by [...] provider. Document Revised: 01/24/2022 Document Reviewed: 01/24/2022 [employer] Patient Education 2023 [employer]. Follow Up Care 10/28/2024 13:26:05 With:Leelee Willson PA-C, URL Address: When:Within 2 Month(s) Comments:w/ HARSHAD [facility] 06-11-2025 NotePatient Education Urology Benign Prostatic [...] Follow these instructions at home: ??? Take ygxx-cja-kflnrbf and prescription medicines only as told by [...] do not get (more content not included)...[facility]04-09-2025 NotePatient Education Urodynamic Testing Urodynamic tests are [...] including vitamins, herbs, eye drops, creams, and rxdh-bbd-mpfzxhv medicines. ? Whether you are or may [...] care provider Ask your (more content not included)...[facility]01-06-2025 History of Present illness Narrative* STEVO Al - 07/27/2024 8:00 AM EST Images from the original note were not included. HISTORY OF PRESENT ILLNESS: EST PT Juan Francisco Carmen is an 59 y.o. @ male. (L) KNEE (EST PT) HERE FOR YEARLY CHECK OF (L) TKA 05/16/23 (~14 MONTHS) XRAYS DONE TODAY, 07/27/24 [facility] NO BONE SCAN LABS, 02/04/24 [...] 06/20/22 (~2YRS) XRAYS DONE TODAY, 07/27/24 IN THE [facility] NO BONE SCAN LABS, 02/04/24 [...] for requiring urgent evaluation. documented in this encounterCox NorthVsbgpfzvhw43-03-3964 History of Present illness Narrative* Rosa Kaba LPN - 07/02/2024 4:55 PM EST Went over AVS with pt and took all his belongings with him. Took pt down stairs via wheelchair. No concerns at this time. 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 Mcfp Goals Time Frame for Printing Supervisor Goals : NA due to short ELOS Following session, patient left in safe position with all fall risk precautions in place. Pt in bedside chair following session, all needs and call light in reach. 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 [...] CATHETER OUTPUT (Mares): [REMOVED] Urinary Catheter 06/30/24 Fxaya-Ixrniaaexvb-Kmoxsu (mL):1300 mL DRAIN/TUBE OUTPUT: Closed/Suction Drain Inferior;Left [...] Rivera OT - 07/01/2024 3:18 PM EST [facility] OCCUPATIONAL THERAPY MISSED TREATMENT NOTE [facility] 7K 7K-05/005-A Date: 07/01/2024 Patient Name: Juan Francisco Carmen CSN: [id number] : 1965 (59 y.o.) Gender: male Referring [...] 1:41 PM Subjective: Admit Date: 06/30/2024 PCP: Alejandor Gimenez MD Interval History: Back pain better [...] PT/OT Flavia Bynum MD, MD * Bridget Quinnoes PT - 07/01/2024 11:09 AM EST [facility] PHYSICAL THERAPY MISSED TREATMENT NOTE [facility] [...] URINARY CATHETER OUTPUT (Mares): Urinary Catheter 06/30/24 Ptgle-Fsmouxsgoek-Axkhwk (mL): 1500 mL DRAIN/TUBE OUTPUT: Closed/Suction Drain [...] PM EST Pt admitted to [facility] by bed. Complaints: surgery. IV normal saline [...] room. Explained patients right to have family, technical support representative or physician notified of their admission. Patient has Declined for physician to be notified. Patient has Declined for family/technical support representative to be notified. The patient is interested in [facility] meds to [facility] program?: Yes Policies and procedures for explained. [...] take pt to 05 in stable condition. [facility] has already sent family to room. * [...] Jimmy Relationship to patient:spouse/significant other Phone number: [phone] * Paulette Shaw RN - 06/30/2024 9:02 [...] last 2 hours documented in this encounterBon [facility] Hospital Discharge instructions* Discharge Instructions* Bill Davis [...] All vegetables, especially asparagus, rodriguez sprouts, broccoli, [place] sprouts, cabbage, carrots, cauliflower, celery, corn, greens, [...] taking more than one drug. This includes xytz-mlh-rrwmouz medication and herb or dietary supplements. Plan [...] 2:07 PM EST documented in this encounterBon [facility]12-10-2024 NotePROCEDURE: XR LUMBAR SPINE 1 VW CLINICAL [...] refer to operative report for further details. [facility]3][id number] NotePROCEDURE: XR LUMBAR SPINE 1 VW CLINICAL [...] Signed by: Jordan Tidwell MD 06/30/24 Final resultSAdventHealth12-06-2024 NotePROCEDURE: XR CHEST (2 VW) CLINICAL INFORMATION: Encounter for other preprocedural examination COMPARISON: No prior study. TECHNIQUE: PA and lateral views of the chest were obtained. [facility] RIS MFULMSENBECU09-55-4794 NotePROCEDURE: XR CHEST (2 VW) CLINICAL INFORMATION: [...] by: Sly Doran MD 06/26/[address] [facility] History of Present illness Narrative* [...] prefer to go? [facility] in [facility] This typically will not start until after [...] do you prefer to go? [facility] in [facility] This typically will not start until after [...] Rehab plans NA documented in this encounterBon [facility]11-20-2024 Hospital Discharge instructions Patient Education 06/10/2024 09:35:40 [...] urethra. Follow these instructions at home: Take zada-omg-kzwamuh and prescription medicines only as told by [...] provider. Document Revised: 01/24/2022 Document Reviewed: 01/24/2022 [employer] Patient Education 2023 [employer]. 06/10/2024 09:13:58 Benign Prostatic Hyperplasia Benign Prostatic [...] urethra. Follow these instructions at home: Take fvig-qqs-rniydrq and prescription medicines only as told by [...] provider. Document Revised: 01/24/2022 Document Reviewed: 01/24/2022 [employer] Patient Education 2023 [employer]. Follow Up Care 04/01/2024 09:44:27 With:Elmer GÓMEZ, DEBRA Rondon, URO Address: When:Within 1 Year(s) Comments:w/HARSHAD [facility] 11-20-2024 NotePatient Education Benign Prostatic Hyperplasia [...] Follow these instructions at home: ??? Take klvm-iup-kkjumse and prescription medicines only as told by [...] not get better wi (more content not included)...[facility]11-20-2024 History of Present illness Narrative* Jr. Hudson [...] FLEX/EXT 12/04/23 EPI MRI, L-SPINE 03/05/24 @ [facility] S/P PREDNISONE TAPER 02/04/24, 12/04/23 S/P [...] xrays. Hudson Keller D.O. documented in this encounterCox NorthJjyokonxtz81-75-3563 History of Present illness Narrative* ANGIE Mccall [...] different lens options were explained including the wqq-gc-cnbgcs fees for any upgrades. Intraocular lens (IOL) [...] Extremities: no pitting edema. documented in this encounterCox NorthCcfkheokds18-98-5371 History of Present illness Narrative* Ivan Ba [...] @ 9:52 AM Additional Tests Keratometry K1 [place] K2 [place] Right 43.75 058 45.00 148 Left 42.75 [...] Normal Refraction Manifest Refraction (Auto) Sphere Cylinder [place] Right -3.50 -0.50 058 Left -4.50 -1.25 [...] different lens options were explained including the xbv-fm-roxnko fees for any upgrades. Intraocular lens (IOL) [...] 06/08and OD - 06/22. documented in this encounterCox NorthFjydoxtgzh88-12-0403 History of Present illness Narrative* Jr. Hudson [...] Procedures Ambulatory referral to Neurosurgery Dr. Walters @[facility] ; Please call patient to schedule, [...] am acting as scribe for Dr. Keller/[facility], PLAN: We have reviewed prior L-Spine xrays / MRI results. Patient notes that most of his symptoms are noted with prolong standing. After examination today we are recommending a referral to Dr. Walters at [facility] with patients verbal agreeance. We have discussed his HEP and restrictions and will see him back in 8 weeks to discuss consult, pending examination / consult we may recommend a bone scan tor/o prosthetic loosening to his left knee. Hudson Keller D.O. documented in this encounterCox NorthIjyfthlfiw01-49-6914 Hospital Discharge instructions Patient Education 04/01/2024 09:45:05 [...] urethra. Follow these instructions at home: Take tnrj-qwz-jqebgah and prescription medicines only as told by [...] provider. Document Revised: 01/24/2022 Document Reviewed: 01/24/2022 [employer] Patient Education 2023 [employer]. Follow Up Care 02/10/2024 10:22:17 With:Elmer GÓMEZ, DEBRA Rondon, URO Address: [address] [place] [phone] When: Unknown Comments:2 mos w/ PVR [facility] 09-11-2024 NotePatient Education Urology Benign Prostatic [...] Follow these instructions at home: ? Take cowg-qzi-qhjsyxn and prescription medicines only as told by [...] You develop side effec (more content not included)...[facility]08-21-2024 History of Present illness Narrative* Jr. Hudson [...] management. Hudson Keller D.O. documented in this encounterCox NorthIvexjuyljk12-07-6545 Hospital Discharge instructions Patient Education 02/10/2024 10:18:20 L[facility] - [employer] Post-Op Instructions (CUSTOM) [facility] [place], [place] Post-Operative Instructions for [employer]ro[employer]ift After your [...] Up Care 01/17/2024 10:32:06 With:Maura Payne Address: [address] [place] [phone] Business (1) [address] [phone] Business (1) When: Unknown Comments:Office to schedule follow up in 1 month with [facility]05-14-2024 Hospital Discharge instructions Patient Education 12/03/2023 15:53:00 [...] including vitamins, herbs, eye drops, creams, and ueri-vua-jdkzihg medicines. Any problems you or family members [...] provider tells you to take them. Taking pxuu-aob-uyflhcs medicines, vitamins, herbs, and supplements. Tests You [...] Follow these instructions at home: Medicines Take wewv-the-torhdmp and prescription medicines only as told by [...] provider. Document Revised: 03/21/2022 Document Reviewed: 02/17/2021 [employer] Patient Education 2022 [employer]. 12/03/2023 15:48:35 Benign Prostatic Hyperplasia Benign Prostatic [...] urethra. Follow these instructions at home: Take jpao-cbb-nabvbpn and prescription medicines only as told by [...] provider. Document Revised: 01/24/2022 Document Reviewed: 01/24/2022 [employer] Patient Education 2022 [employer]. Follow Up Care 11/25/2023 13:52:08 With:Elmer GÓMEZ, Maura Torres, URL, URO Address: When: Unknown [facility] evaluation + Plan note No data available for this section [facility] evaluation + Plan note Future Appointments Appointment Date:04/01/2024 09:00:00 AM Scheduled Provider:Maura Payne MD Location:[facility] Future Appointments Appointment Date:06/10/2024 08:45:00 AM Scheduled Provider:Maura Payne MD Location:[facility] Appointment Type:URO Office Visit [facility] evaluation + Plan note Future Appointments Appointment Date:06/16/2025 08:45:00 AM Scheduled Provider:Maura Payne MD Location:[facility] Appointment Type:URO Office Visit [facility] evaluation + Plan note Future Appointments Appointment Date:03/03/2025 08:00:00 AM Scheduled Provider:Leelee Willson PA-C Location:[facility] Appointment Type:URO Office Visit Appointment Date:06/16/2025 08:45:00 AM Scheduled Provider:Maura Payne MD Location:[facility] Appointment Type:URO Office Visit [facility] evaluation noteNo assessment information available [facility] Work Phone: Evaluation note* Diagnosis Age-related [...] whether pain present [facility] Diagnosis Lumbar stenosis with neurogenic claudication- Primary Spinal stenosis, lumbar region, with neurogenic claudication Lumbar stenosis with neurogenic claudication Spinal stenosis, lumbar region, with neurogenic claudication [facility] Diagnosis Lumbar back pain with radiculopathy affecting left lower extremity- Primary documented in this encounter [facility]* Diagnosis Lumbar back pain with radiculopathy affecting left lower extremity- Primary documented in this encounter [facility]* Diagnosis Acute pain of right knee- Primary Acute pain of left knee History of bilateral knee replacement documented in this encounter [facility]* Diagnosis Mixed conductive and sensorineural hearing loss of left ear with restricted hearing of right ear- Primary Pulsatile tinnitus of left ear documented in this encounter [facility]* Diagnosis Conductive hearing loss of left ear with unrestricted hearing of right ear- Primary Referred otalgia of left ear [facility] No data available for this section [facility] Progress note No data available for this section [facility] reason for referral (narrative)* Consultation (Routine) - AuthorizedSpecialtyDiagnoses / ProceduresReferred By ContactReferred To ContactNeurosurgery Diagnoses Lumbar back pain with radiculopathy affecting left lower extremity Jr. Hudson Keller DO [address] [place] [address] Cece Xie MD [facility] [place] [address] Referral IDStatusReasonStart DateExpiration DateVisits RequestedVisits [id number] Specialty Services Required / [facility] Summary [...] History Records Found Advance Directives Date ActivatedDate [id number]/10/2024 11:29 AMDate ActivatedDate [id number]/10/2024 11:29 AMNameRelationshipHealthcare Agent RelationshipCommunicationTomi SachsSpousePrimary Decision Maker* Additional Source Comments Care Teams (unrecognized sec tion and content) Team Status: Inactive Member Role Status Dates Elmo Vela DO Attending Provider Active Team MemberRelationshipSpecialtyStart DateEnd Date Colt Michelle MD [address] [place] [address] PCP - GeneralFamily Medicine11/30/22Team MemberRelationshipSpecialtyStart DateEnd Date Colt Michelle MD [address] [place] [address] PCP - GeneralFamily Medicine11/30/22Team MemberRelationshipSpecialtyStart DateEnd Date Colt Michelle MD [address] [place] [address] PCP - GeneralFami Medicine11/30/22Team MemberRelationshipSpecialtyStart DateEnd Date Colt Michelle MD [address] [place] [address] PCP - GeneralFamily Medicine11/30/22Team MemberRelationshipSpecialtyStart DateEnd Date Colt iMchelle MD [address] [place] [facility] [address] PCP - GeneralFamily Medicine11/30/22Team MemberRelationshipSpecialtyStart DateEnd Date Colt Michelle MD [address] [place] [facility] [address] PCP - GeneralFamily Medicine11/30/22Team MemberRelationshipSpecialtyStart DateEnd Date Alejandro Gimenez MD [address] [place] [address] PCP - GeneralFamily Uzikvaun52/6/24Team MemberRelationshipSpecialtyStart DateEnd Date Alejandro Gimenez MD [address] [place] [address] PCP - GeneralFamily Xmqucdee55/6/24Team MemberRelationshipSpecialtyStart DateEnd Date Alejandro Gimenez MD [address] [place] [address] PCP - GeneralFamily Adwvkhlc70/6/24Team MemberRelationshipSpecialtyStart DateEnd Date Alejandro Gimenez MD [address] [place] [address] PCP - GeneralFamily Cubeppuj78/6/24Team MemberRelationshipSpecialtyStart DateEnd Date Colt Michelle MD [address] [place] [facility] [address] PCP - GeneralFamily Medicine11/30/22Team MemberRelationshipSpecialtyStart DateEnd Date Colt Michelle MD [address] [place] [facility] [address] PCP - GeneralFamily Medicine11/30/22Team MemberRelationshipSpecialtyStart DateEnd Date Colt Michelle MD [address] [place] [address] PCP - GeneralFamily Medicine11/30/22Team MemberRelationshipSpecialtyStart BrentEnd Colt Almanza MD [address] [place] [facility] [address] PCP - GeneralFamily Medicine11/30/22Team MemberRelationshipSpecialtyStart DateEnd Date Colt Michelle MD [address] [place] [address] PCP - GeneralFamily Medicine11/30/22Team MemberRelationshipSpecialtyStart DateEnd Date Colt Michelle MD PCP - GeneralFamily Medicine11/30/22Team MemberRelationshipSpecialtyStart BrentEnd Colt Almanza MD PCP - GeneralFamily Medicine11/30/22Team MemberRelationshipSpecialtyStart DateEnd Colt Almanza MD [facility] [place] [address] PCP - GeneralFamily Medicine02/22/25Team MemberRelationshipSpecialtyStart DateEnd Colt Almanza MD [address] [place] [address] PCP - GeneralFamily Medicine02/22/25Team MemberRelationshipSpecialtyStart DateEnd Date Colt Michelle MD [address] [place] [address] PCP - GeneralFamily Medicine02/22/25 Goals (unrecognized section [...] section and content) DATE CREATED AUTHOR 04/01/2022 [facility] DATE CREATED AUTHOR AUTHOR'S ORGANIZ ATION 04/23/2022 [facility] DATE CREATED AUTHOR AUTHOR'S ORGANIZ ATION 07/14/2024 [facility] DATE CREATED AUTHOR AUTHOR'S ORGANIZ ATION 02/13/2025 [facility] DATE CREATED AUTHOR AUTHOR'S ORGANIZ ATION 02/18/2025 [facility] DATE CREATED AUTHOR AUTHOR'S ORGANIZ ATION 02/22/2025 [facility] DATE CREATED AUTHOR AUTHOR'S ORGANIZ ATION 02/25/2025 [facility] EPIC Reason for Visit (unrecogniz ed section and content) ReasonCommentsCataractReasonCommentsPainSpecialtyDiagnoses / ProceduresReferred By ContactReferred To Contact Diagnoses Degeneration of intervertebral disc of lumbar region, unspecified whether pain present Degeneration of intervertebral disc of lumbar region, unspecified whether pain present [M51.369] Procedures UT ARTHRODESIS COMBINED TQ 1NTRSPC LUMBAR UT ARTHRODESIS PST/PSTLAT TQ 1NTRSPC EA ADDL NTRSPC UT PARRISH FACETEC/FORAMOT DRG ARTHRD LUMBAR 1 VRT SGM UT PARRISH FACETEC/FORAMOT DRG ARTHRD LMBR EA ADDL SGM UT PARRISH FACETECTOMY & FORAMOTOMY 1 VRT SGM LUMBAR UT POSTERIOR SEGMENTAL INSTRUMENTATION 3-6 VRT SEG UT INSJ BIOMCHN DEV INTERVERTEBRAL DSC SPC W/ARTHRD UT AUTOGRAFT SPINE SURGERY LOCAL FROM SAME INCISION L4-S1 Decompression and Fusion, L4-L5 TLIF L4-S1 Decompression and Fusion, L4-L5 TLIF L4-S1 Decompression and Fusion, L4-L5 TLIF L4-S1 Decompression and Fusion, L4-L5 TLIF L4-S1 Decompression and Fusion, L4-L5 TLIF L4-S1 Decompression and Fusion, L4-L5 TLIF L4-S1 Decompression and Fusion, L4-L5 TLIF L4-S1 Decompression and Fusion, L4-L5 TLIF Cece Xie MD [address] [place] [address] [facility] [address] [place] [address] Referral IDStatusReasonStart DateExpiration DateVisits RequestedVisits [id number]gznnkpeVoanjj MediaReasonOnset Date CommentsCT and rx to Dr Michelle02/05/2025ReasonCommentsEar ProblemFollow up [facility] 02/12/25 Ordered Prescriptions (unrec ognized section and [...] (Given - Provider: Marcela Burns RN) * 1607 (Not Given - Provider: Sierra Mckeon RN [...] 0756 (Given - Provider: Bill Davis, RN) ixatrljgsh-eynolhrbhaapp-fekujeze (FIORICET, ESGIC) per tablet 1 tablet (COMPLETED) 1 tablet, Oral, ONCE, 1 dose, On Sat07/01/24 at 0445, Maximum dose of acetaminophen is 4000 mg from all sources in 24 hours. * 0433 (Given - Provider: Sierra Mckeon RN) ceFAZolin (ANCEF) 2,000 mg in sterile water 20 mL IV syringe (COMPLETED) 2,000 mg, IntraVENous, NETWORK DEVELOPER TO O.R., 1 dose, On Sat06/30/24 [...] (Paused - Provider: Marci Ulrich APRN - ATHLETIC MONITOR - Comment: Switch to gravity) * 1433 (Restarted - Provider: Marci Ulrich APRN - ATHLETIC MONITOR) * 1620 (New Bag - Provider: Stacey Loving APRN - JOVON) * 1635 (Anesthesia Volume Adjustment - Provider: Stacey Loving APRN - ATHLETIC MONITOR) 0.9 % sodium chloride infusion IntraVENous, at [...] BE BASED ON THE PRIMARY CLINICAL RECORDS. [employer] [facility]. provides no warranty or guarantee of the accuracy or completeness of information in this document.
[2025-06-22 13:08] LABS: Anti-CCP Ab, IgG/IgA 9 units (0-19)
[2025-06-22 16:08] LABS: Antinuclear Antibodies, IFA Negative (.)
== END 2025-06-21 10:23 | disposition home or self-care (01) ==
PROVIDERS: PCP Family Medicine; Visit Provider Family Medicine
DX: M13.80 Other specified arthritis, unspecified site (principal)
CPT/HCPCS: 36415; 86038; 86200; 86431